=== PATIENT | female | born 1995 | race Caucasian/White ===

== ENCOUNTER 2022-09-05 18:52 | Outpatient (CLI) | payer MEDICAID, SELFPAY ==
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
--- OUTSIDE RECORDS SUMMARY | 2022-09-05 18:54 | XMS_ITS | Encounter Summary ---
:1995 Author Organization [facility] Address [address] [place] [address] Care Team Providers Name Role Phone No Ref-Primary, Physician Primary Care Provider [phone] Viri Gallardo APRN SUPERVISOR PRODUCTION MANAGING Unavailable [phone] Viri Gallardo APRN SUPERVISOR [employer]ODUCTION MANAGING Unavailable [phone] Reason for Visit Reason Onset Date Comments No Show No Show 02/13/2021 Encounter Details Date Type Department Care Team Description 02/13/[address] [facility] Aleena Moreno NO SHOW (Primary Dx) Clinic Jesu Lloyd MD [address] [place] [address] [address] [place], [place] [id number] [phone] (Wo rk) Social History Tobacco Use Types [...] Assigned at Date Recorded Not on file documented as of this encounter Progress Notes Sarah Borges, CRISS - 02/13/2021 1:00 PM CDT This patient was a no show for this scheduled appointment. documented in this encounter Plan of Treatment Not on filedocumented as of this encounter Visit Diagnoses Diagnosis NO SHOW - Primary documented in this encounter Additional Health Concerns Assessment Noted Time PHQ-9 Depression Total Score: 15 09/16/2018 1:27 PM CS T documented as of this encounter Care Teams Senior Hadoop Developer Relationship Specialty Start Date End Date No Ref-Primary, Physician PCP - General 04/15/20 Viri Gallardo APRN SUPERVISOR PRODUCTION MANAGING Nurse Practitioner 04/15/20 [address] [facility] [place] [id number] Viri Gallardo APRN SUPERVISOR PRODUCTION MANAGING Assigned PCP 08/18/20 04/24/21 [address] [facility] [place] [id number] documented as of this encounter
--- OUTSIDE RECORDS SUMMARY | 2022-09-05 18:54 | XMS_ITS | Encounter Summary ---
:1995 Author Organization [facility] Address [address] [place] [address] Care Team Providers Name Role Phone No Ref-Primary, Physician Primary Care Provider [phone] Viri Gallardo CONTRACT ENGINEER PACKAGER AND STRAPPER Unavailable [phone] Kenisha Garcia CONTRACT ENGINEER PACKAGER AND STRAPPER Unavailable [phone] Reason for Referral Diagnostic Imaging Ultrasound (Routine) - Pending Review Specialty Diagnoses / Procedures Referred By Contact Refer red To Contact Diagnoses related condition Maria Victoria Robles MD Procedures [facility] [address] [place] [address] Referral ID Status Reason Start Date Expiration Date Visits V isits Requested Authorized [id number] Pending 06/04/2022 06/04/2023 1 1 Review onsultation (Routine: Next available opening) - Pending Review Specialty Diagnoses / Procedures Referred By Contact Refer red To Contact Diagnoses related condition Maria Victoria Robles MD [facility] [address] [place] [address] [address] [place] [address] [place] [address] Referral ID Status Reason Start Date Expiration Date Visits V isits Requested Authorized [id number] Pending 06/04/2022 06/04/2023 1 1 Review Encounter Details Date Type Department Care Team Description 06/04/2022 Transcribe Orders [facility] Travis, Maria Victoria Dacosta, Pre gnancy related Maternal MD condition (Primary Medicine Center [address] Dx) Denise Lockett [address] [facility] [place] [address] [place] [address] [address] (Work) [place] [id number] Social History Tobacco Use Types Packs/Day Years [...] on file documented as of this encounter Plan of Treatment Scheduled Referrals Name Type Priority Associated Diagnoses Order [facility] Referral Routine: Next related Expe cted: Referral - available opening condition 06/04/2022 (Approximate), Expires: 12/01/2022 documented as of this encounter Results MFM US Comprehensive Single (06/05/2022 10:49 AM CDT) Anatomical Region Laterality Modality Ultrasound Specimen (Source) Anatomical Collection Method Collection Time Re ceived Time Location / / Volume Laterality 06/05/2022 10:15 AM CDT Impressions 06/05/2022 2:21 PM CDT IMPRESSION 1) Cruz intrauterine at 2 2w 4d gestational age. 2) None of the anomalies commonly detect ed by ultrasound were evident in the detailed anatomic survey described above. 3) Growth parameters and estimated weight were consistent with an appropriate for gestation age pattern of growth. 4) The amniotic fluid volume appeared no rmal. Narrative 06/05/2022 2:21 PM CDT Comprehensive Pat. Name: JOEL AMOS Study Date: 05/12 10:15am Pat. NO: [id number] Referring ??MD: LUCHO ROBLES Site: [place] Test Driller: Ivonne oneal RDMS : 1995 Age: 27 INDICATION Abnormal cranial anatomy on outside ultr asound. History of post- pre- eclampsia in prior . METHOD Transabdominal ultrasound examination. V iew: Sufficient Cruz . Number of fetuses: 1 DATING ? Date ?Details ?Gest. age ?COSTA LMP ?12/28/2021 ? 22 w + 5 d ? 10/04/2022 Prior assessment ? 5/ ? GA: 8 w + 0 d ?22 w + 4 d ? 10/05/2022 U/S ? 06/05/2022 ? based upon AC, BPD, Femur, HC ? 22 w + 3 d ? 10/06/2022 Assigned dating ?Dating performed on 06/05/2022, based on the prior assessment (on 02/23/2022) ? 22 w + 4 d ? 10/05/2022 GENERAL EVALUATION Cardiac activity present. FHR 144 bpm. movements present. Presentation cephalic. Placenta Anterior, No Previa, > 2 cm fro m internal os. Umbilical cord 3 vessel cord. Amniotic fluid Amount of AF: normal. MVP 5.9 cm. BIOMETRY Main Biometry: BPD ?52.8 ?mm ? 22w 0d ?Hadlock OFD ?71.7 ?mm ? 22w 1d ?Nicolaides HC ?198.7 ?mm ?22w 0d ?Hadlock Cerebellum tr ?23.9 ? mm ?22w 0d ?Nicolaides AC ?186.3 ?mm ?23w 3d ?69% ?Hadlock Femur ?37.9 ? mm ?22w 1d ?Hadlock Humerus ?36.0 ?mm ? 22w 4d ?Shamir Weight Calculation: EFW ? 529 ? g ? 50% ?Hadlock EFW (lb,oz) ? 1 lb 3 ?oz EFW by ?Hadlock ([id number]) Head / Face / Neck Biometry: Graphic Engineer ? 5.9 ? mm CM ?5.7 ? mm Nasal bone ? 7.1 ? mm ANATOMY The following structures appear normal: Head / Neck ? Cranium. Head size. Head shape. Lateral ventricles. Choroid plexus. Midline falx. Cavum septi pellucidi. Cerebellum. Cisterna magna. ? Parenchyma. Thalami. Vermis. ? Neck. Face ? Lips. Profile. Nose. Maxilla. Mandible. Orbits. Lens. Heart / Thorax ?4-chamber view. RVOT view. LVOT view. Situs. Aortic arch view. Bicaval view. Ductal arch view. Superior vena cava. Inferior vena cava. 3-vessel ? view. 4-ebwmya-ivfpfuk view. Cardiac position. Cardiac size. Cardiac rhythm. ? Right lung. Left lung. Diaphragm. Abdomen ? Abdominal wall. Cord insertion. Stomach. Kidneys. Bladder. Liver. Bowel. Genitals. Spine ?Cervical spine. Thoracic spine. Lumbar spine. Sacral spine. Extremities / Skeleton ?Rig ht arm. Right hand. Left arm. Left hand. Right leg. Right foot. Left leg. Left foot. Gender: female. MATERNAL STRUCTURES Cervix ?Visualized ? Appearance: Appears Closed ? Approach - Transabdominal: Cervical length 44.2 mm Right Ovary ?Visualized Left Ovary ?Not visualized RECOMMENDATION We discussed the findings on today's ult rasound with the patient. Further ultrasound studies as clinically indicated. Return to primary provider for continued care. Thank you for the opportunity to partici lucía in the care of this patient. If you have questions regarding today's evaluation or if we can be of further service, please contact the [facility]. anomalies may be present but not detected Procedure Note Juan José Barrera MD - 06/05/2022Formatt ing of this note might be different from the original. Comprehensive Pat. Name:Lori AMOS Date: 10:15am Pat. NO: [id number] :MARIA VICTORIA MYLES [facility]:Ivonne reynoso RDMS :1995Age:27 INDICATION Abnormal cranial anatomy on outside ultr asound. History of post- pre- eclampsia in prior . METHOD Transabdominal ultrasound examination. V iew: Sufficient Cruz . Number of fetuses: 1 DATING Date Details Gest. age COSTA LMP 12/28/2021 22 w + 5 d 10/04/2022 Prior assessment 02/23/2022 GA: 8 w + 0 d 22 w + 4 d 10/05/2022 U/S 06/05/2022 based upon AC, BPD, Femur, HC 22 w + 3 d 10/06/2022 Assigned dating Dating performed on 05/12, based on the prior assessment (on 02/23/2022) 22 w + 4 d 10/05/2022 GENERAL EVALUATION Cardiac activity present. FHR 144 bpm. movements present. Presentation cephalic. Placenta Anterior, No Previa, > 2 cm fro m internal os. Umbilical cord 3 vessel cord. Amniotic fluid Amount of AF: normal. MVP 5.9 cm. BIOMETRY Main Biometry: BPD 52.8 mm 22w 0d Hadlock OFD 71.7 mm 22w 1d Nicolaides HC 198.7 mm 22w 0d Hadlock Cerebellum tr 23.9 mm 22w 0d Nicolaides AC 186.3 mm 23w 3d 69% Hadlock Femur 37.9 mm 22w 1d Hadlock Humerus 36.0 mm 22w 4d Shamir Weight Calculation: EFW 529 g 50% Hadlock EFW (lb,oz) 1 lb 3 oz EFW by Hadlock ([id number]) Head / Face / Neck Biometry: Graphic Engineer 5.9 mm CM 5.7 mm Nasal bone 7.1 mm ANATOMY The following structures appear normal: Head / Neck Cranium. Head size. Head sha pe. Lateral ventricles. Choroid plexus. Midline falx. Cavum septi pellucidi. Cerebellum. Cisterna magna. Parenchyma. Thalami. Vermis. Neck. Face Lips. Profile. Nose. Maxilla. Jaylin ble. Orbits. Lens. Heart / Thorax 4-chamber view. RVOT view . LVOT view. Situs. Aortic arch view. Bicaval view. Ductal arch view. Superior vena cava. Inferior vena cava. 3-vessel view. 6-guwwsw-fyzqxtg view. Cardiac po sition. Cardiac size. Cardiac rhythm. Right lung. Left lung. Diaphragm. Abdomen Abdominal wall. Cord insertion. Stomach. Kidneys. Bladder. Liver. Bowel. Genitals. Spine Cervical spine. Thoracic spine. Michelle mbar spine. Sacral spine. Extremities / Skeleton Right arm. Right hand. Left arm. Left hand. Right leg. Right foot. Left leg. Left foot. Gender: female. MATERNAL STRUCTURES Cervix Visualized Appearance: Appears Closed Approach - Transabdominal: Cervical margi gth 44.2 mm Right Ovary Visualized Left Ovary Not visualized RECOMMENDATION We discussed the findings on today's ult rasound with the patient. Further ultrasound studies as clinically indicated. Return to primary provider for continued care. Thank you for the opportunity to partici lucía in the care of this patient. If you have questions regarding today's evaluation or if we can be of further service, please contact the [facility]. anomalies may be present but not detected IMPRESSION 1) Cruz intrauterine at 2 2w 4d gestational age. 2) None of the anomalies commonly detect ed by ultrasound were evident in the detailed anatomic survey described above. 3) Growth parameters and estimated weight were consistent with an appropriate for gestation age pattern of growth. 4) The amniotic fluid volume appeared no rmal. Maria Victoria Robles MD [facility] US ORDERABLES documented in this encounter Visit Diagnoses Diagnosis related condition - Primary Unspecified complication of , u nspecified as to episode of care related condition Unspecified complication of , u nspecified as to episode of care documented in this encounter Additional Health Concerns Assessment Noted Time PHQ-9 Depression Total Score: 15 09/16/2018 1:27 PM CS T documented as of this encounter Care Teams Regeneration Operator Relationship Specialty Start Date End Date No Ref-Primary, Physician PCP - General 04/15/20 Viri Gallardo APRN P[employer]AGER AND STRAPPER Nurse Practitioner 04/15/20 [address] [place], [place] [address] Kenisha Garcia APRN PACKAGER AND STRAPPER Assigned PCP 04/25/21 [address] [facility] [place] [id number] documented as of this encounter
--- OUTSIDE RECORDS SUMMARY | 2022-09-05 18:54 | XMS_ITS | Encounter Summary ---
:1995 Author Organization [place] Address [address] [place] [address] Care Team Providers Name Role Phone No Ref-Primary, Physician Primary Care Provider [phone] Viri Gallardo DYNAMICS AX CONSULTANT LINE CONSTRUCTION SUPERINTENDENT Unavailable [phone] Kenisha Garcia DYNAMICS AX CONSULTANT LINE CONSTRUCTION SUPERINTENDENT Unavailable [phone] Reason for Visit Reason Comments Anxiety Encounter Details Date Type Department Care Team Description 04/27/[address] [facility] Zeeshan Mcintosh; [facility] Emergency MD Lui Methamphetamine use (H) Dept [facility] [address] [place], [place] [address] [facility] [id number] [place] [address] (Wo rk) Social History Tobacco Use Types [...] been in contact with No / Unsure 04/27/2021 3:44 PM CDT someone who was confirmed or suspected to have Coronavirus / COVID-19? documented as of this encounter Last Filed Vital Signs Vital Sign Reading Time Taken Comments Blood Pressure 132/88 04/27/2021 7:58 PM CDT Pulse 65 04/27/2021 7:58 PM CDT Temperature 36.6 ??C (97.8 ??F) 04/27/2021 4:16 PM CDT Respiratory Rate 20 04/27/2021 4:11 PM CDT Oxygen Saturation 99% 04/27/2021 7:58 PM CDT Inhaled Oxygen Concentration - - Weight - - Height - - Body Mass Index - - documented in this encounter Discharge Instructions AttachmentsThe following attachments cannot be sent through Care Everywhere. Dehydration (Adult) (Nigerien)documented in this encounter Medications at Time of Discharge Medication Sig Dispensed Refills Start Date End Date FLUoxetine (PROZAC) 20 Take 20 mg by mouth 0 MG capsule daily hydrOXYzine (ATARAX) 25 Take 25 mg by mouth 0 MG tablet daily 1-2 tablets every 8 hours lamoTRIgine (LAMICTAL) Take 25 mg by mouth 3 0 25 MG tablet times daily levonorgestrel-ethinyl Take 1 tablet by mouth 84 tablet 3 0 04/10/2021 estradiol (AVIANE) daily Take continuously 0.1-20 MG-MCG to skip a period tabletIndications: control counseling SUMAtriptan (IMITREX) Take 1 tablet (100 mg) 12 tablet 3 100 MG by mouth at onset of tabletIndications: headache for migraine Migraine without aura May repeat in 2 hours if and without status needed: max 2/day; migrainosus, not average number of intractable headaches monthly 4 varenicline (CHANTIX Take 0.5 mg tab daily 53 tablet 0 /10/2020 MARNIE) 0.5 MG X 11 & 1 MG for 3 days, THEN 0.5 mg X 42 tabletIndications: tab twice daily for 4 Tobacco abuse days, THEN 1 mg twice daily. varenicline (CHANTIX) 1 Take 1 tablet (1 mg) by 60 tablet 3 04/10/2021 MG tabletIndications: mouth 2 times daily Tobacco abuse documented as of this encounter ED Notes Chantel Ospina RN - 04/27/2021 4:30 PM CDT Grandmother at bedside Chantel Ospina RN - 04/27/2021 4:13 PM CDT Provided two cups of water and turkey sandwich. Pt consumed with no emesis. Chantel Ospina RN - 04/27/2021 4:05 PM CDT Pt rports having argument with girlfriend getting upset and walking away to defuse the situation. pt reports walking a long distance to her car and getting over heated, drinking water from water hoses, and vomiting. PT reports that she left her phone and keys there with the girlfreind. PT currently able to drink water and eat food without emesis. Reports hx of meth abuse, usually smokes or snorts it. Chantel Ospina RN - 04/27/2021 4:03 PM CDT Pts vape and belongings secured in locker 47. Chantel Ospina RN - 04/27/2021 3:44 PM CDT Pt to ED via EMS with c/o panic attack/anxiety. Ems reports that a bystander found her laying under a tree vomiting. Pt told Ems that she had argument with girlfriend and went for a long walk to defuse the situation, got over heated, drank water, and vomited. Reportedly used meth yesterday and has ahx of substance abuse. Denies SI/HI for EMS. Padmini Kilpatrick RN - 04/27/2021 3:42 PM CDT Bed: ED07 Expected date: Expected time: Means of arrival: Comments: Angely 594 Zeeshan Mcintosh MD - 04/27/2021 3:42 PM CDT History Chief Complaint: Anxiety The history is provided by the patient and the EMS personnel. Joel Bautista is a 25 year old female with history of anxiety, depression, bipolar I disorder, and borderline personality disorder who presents via EMS with anxiety. Per EMS, patient was found laying under a tree vomiting by a bystander. She states she got into an argument with a girl and left the house without her phone. She then went for a long walk and got over heated, dehydrated, and started having anxiety. She reports walking from [place] to [place] for 3 hours. She has a history of substance abuse and reports using meth yesterday. En route, EMS gave her ice pack and this helped her symptoms. Here in the ED, patient reports cutting herself about a week ago although she denies suicidal or homicidal ideation. She states she does not feel safe anywhere. She also notes leg cramping. Of note, patient started Prozac on 03/19/2021 and control about 2 weeks ago. She states she is scheduled for inpatient substance abuse therapy next week. Review of Systems Gastrointestinal: Positive for vomiting. Psychiatric/Behavioral: Positive for self-injury. Negative for suicidal ideas. The patient is nervous/anxious. All other systems reviewed and are negative. Allergies: The patient has no known drug allergies. Medications: Prozac Atarax Lamictal Aviane Imitrex Varenicline Past Medical History: Anxiety Bipolar 1 disorder Borderline personality disorder Depression Substance abuse PTSD Family History: Mother: hypertension Social History: Patient presents to the ED via EMS and is accompanied by her grandma. Patient has 2 twin kids who are 6 years old. Physical Exam Patient Vitals for the past 24 hrs: BP Temp Temp src Pulse Resp SpO2 04/27/21 1958 132/88 -- -- 65 -- 99 % 04/27/21 1743 -- -- -- -- -- 100 % 04/27/21 1742 (!) 141/69 -- -- 78 -- -- 04/27/21 1617 -- -- -- -- -- 100 % 04/27/21 1616 -- 97.8 ??F (36.6 ??C) Temporal -- -- 98 % 04/27/21 1611 -- -- -- -- 20 100 % 04/27/21 1559 -- -- -- -- -- 100 % 04/27/21 1558 -- -- -- 64 -- 96 % 04/27/21 1557 -- -- -- -- -- 100 % 04/27/21 1556 -- -- -- -- -- 100 % 04/27/21 1555 -- -- -- -- -- 99 % 04/27/21 1554 -- -- -- -- -- 100 % 04/27/21 1553 -- -- -- -- -- 99 % 04/27/21 1552 -- -- -- -- -- 100 % 04/27/21 1550 104/76 -- -- -- -- -- Physical Exam Nursing note and vitals reviewed. Constitutional: Cooperative. HENT: Mouth/Throat: Moist mucous membranes. Eyes: EOMI, nonicteric sclera Cardiovascular: Normal rate, regular rhythm, no murmurs, rubs, or gallops Pulmonary/Chest: Effort normal and breath sounds normal. No respiratory distress. No wheezes. No rales. Abdominal: Soft. Nontender, nondistended, no guarding or rigidity. Musculoskeletal: Normal range of motion. Neurological: Alert. Moves all extremities spontaneously. Skin: Skin is warm and dry. No rash noted. Psychiatric: Normal mood and affect. Emergency Department Course Laboratory: CBC: WBC: 21.9 (H) , HGB: 16.0 (H) , PLT: 350 BMP: Glucose 111 (H) , Calcium: 10.8 (H) , Creatinine: 1.11 (H) o/w WNL CK total: 259 (H) UA: Ketones: Trace (A), Blood: Small (A), Leukocyte Esterase: Trace (A), Bacteria: Few (A), SquamousEpithelial: 3 (H), Mucous: Present, o/w Negative Wet prep: WBCs/high power field: 2+ (A) Emergency Department Course: Reviewed: I reviewed nursing notes, vitals, past medical history and care everywhere Assessments: 1609 I obtained history and examined the patient as noted above. 185 I rechecked the patient. She thinks she has an UTI or yeast infection. Interventions: 1629 NS 1L IV 1741 NS 1L IV Disposition: The patient was discharged to home. Impression & Plan Medical Decision Making: Pt presents with nausea/vomiting after prolonged walk outside in the heat. Suspect this related to heat exposure. No fever or AMS to suggest heat stroke or heat exhaustion. Pt rehydrated here with good improvement in her symptoms. Labs do not show signs of rhabdo. Perhaps mild ROLANDO that will resolve with fluids given. Leukocytosis noted without nidus of infection. May be stress demargination related to vomiting/heat injury. Ultimately, pt symptomatically improved and she is safe/stable for dischargehome. She is in stable condition at the time of discharge, indications for return to the ED were discussed as well as follow up. All questions were answered and she is in agreement with the plan. Diagnosis: ICD-10-CM 1. Dehydration E86.0 2. Methamphetamine use (H) F15.10 Scribe Disclosure: I, Amanda Perdomo, am serving as a scribe at 3:55 PM on 04/27/2021 to document services personally performed by Zeeshan Mcintosh MD based on my observations and the provider's statements to me. Zeeshan Mcintosh MD 04/28/21 0608 documented in this encounter Plan of Treatment Not on filedocumented as of this encounter Procedures Procedure Name Priority Date/Time Associated Comments Diagnosis ROUTINE UA WITH STAT 04/27/2021 6:55 PM Result s for this MICROSCOPIC REFLEX TO CDT proced ure are in CULTURE the results section. WET PREPARATION STAT 04/27/2021 6:55 PM Result s for this CDT procedure are i n the results section. CBC WITH PLATELETS STAT 04/27/2021 4:27 PM Res ults for this AND DIFFERENTIAL CDT procedure a re in the results section. CBC WITH PLATELETS & STAT 04/27/2021 4:27 PM R esults for this DIFFERENTIAL CDT procedure are i n the results section. CK TOTAL STAT 04/27/2021 4:27 PM Results f or this CDT procedure are i n the results section. BASIC METABOLIC PANEL STAT 04/27/2021 4:27 PM Results for this CDT procedure are i n the results section. documented in this encounter Results (ABNORMAL) Wet prep (04/27/2021 6:55 PM CDT) Analysis Performed At Patho logist Time Signature Trichomonas Absent Absent JIMMY 04/27/2021 [facility] 7:20 PM CDT Yeast Absent Absent JIMMY 04/27/2021 [facility] 7:20 PM CDT Clue Cells Absent Absent JIMMY 04/27/2021 [facility] 7:20 PM CDT WBCs/high power 2+ (A) None JIMMY 04/27/2021 [facility] field 7:20 PM CDT Specimen Anatomical Collection Method Collection Time Receive d Time (Source) Location / / Volume Laterality Swab VAGINAL STRUCTURE Non-blood 04/27/2021 6:55 PM 04/10 7:04 / Unknown Collection / CDT PM CDT Unknown Zeeshan Mcintosh MD LAB - MICRO GENERAL ORDERABL ES Performing Organization Address City/State/ZIP Code Phon [place] [address] [facility] [address] Lab (1st floor, no room number) (ABNORMAL) UA with Microscopic reflex to Culture (04/27/2021 6:55 PM CDT) Patholo gist Method Time Signature Color Urine Light Colorless, 04/27/2021 [facility] Yellow Straw, 8:29 PM CDT Light Yellow, Yellow Appearance Urine Clear Clear 04/27/2021 [facility] Y 8:29 PM CDT Glucose Urine Negative Negative 04/27/2021 [facility] mg/dL 8:29 PM CDT Bilirubin Urine Negative Negative 04/27/2021 [facility] 8:29 PM CDT Ketones Urine Trace (A) Negative 04/27/2021 [facility] mg/dL 8:29 PM CDT Specific [place] 1.015 1.003 - 04/27/2021 [facility] Urine 1.035 8:29 PM CDT Blood Urine Small (A) Negative 04/27/2021 [facility] 8:29 PM CDT pH Urine 6.5 5.0 - 7.0 04/27/2021 [facility] 8:29 PM CDT Protein Albumin Negative Negative 04/27/2021 [facility] Urine mg/dL 8:29 PM CDT Urobilinogen Normal Normal, 2.0 04/27/2021 [facility] Urine mg/dL 8:29 PM CDT Nitrite Urine Negative Negative 04/27/2021 [facility] 8:29 PM CDT Leukocyte Trace (A) Negative 04/27/2021 [facility] Esterase Urine 8:29 PM CDT Bacteria Urine Few (A) None Seen 04/27/2021 [facility] /HPF 8:29 PM CDT Mucus Urine Present (A) None Seen 04/27/2021 [facility] /LPF 8:29 PM CDT RBC Urine 2 <=2 /HPF 04/27/2021 [facility] 8:29 PM CDT WBC Urine 5 <=5 /HPF 04/27/2021 [facility] 8:29 PM CDT Squamous 3 (H) <=1 /HPF 04/27/2021 [facility] Epithelials 8:29 PM CDT Urine Specimen Anatomical Collection Method Collection Time Receive d Time (Source) Location / / Volume Laterality Urine MID-STREAM URINE Non-blood 04/27/2021 6:55 PM 04/27 7:04 SPECIMEN / Unknown Collection / CDT PM CDT Unknown Narrative [facility] - 04/27/2021 8:29 PM CDT Urine Culture not indicated Zeeshan Mcintosh MD LAB - URINE ORDERABLES Performing Organization Address City/State/ZIP Code [place] [phone] [facility] [address] Lab (1st floor, no room number) (ABNORMAL) CBC with platelets and differential (04/27/2021 4:27 PM CDT) [facility] Method Time Signature WBC Count 21.9 (H) 4.0 - 04/27/2021 [facility] 11.0 4:34 PM CDT 10e3/uL RBC Count 4.85 3.80 - 04/27/2021 [facility] 5.20 4:34 PM CDT 10e6/uL Hemoglobin 16.0 (H) 11.7 - 04/27/2021 [facility] 15.7 g/dL 4:34 PM CDT Hematocrit 47.8 (H) 35.0 - 04/27/2021 [facility] 47.0 % 4:34 PM CDT MCV 99 78 - 100 04/27/2021 [facility] fL 4:34 PM CDT MCH 33.0 26.5 - 04/27/2021 [facility] 33.0 pg 4:34 PM CDT MCHC 33.5 31.5 - 04/27/2021 [facility] 36.5 g/dL 4:34 PM CDT RDW 12.2 10.0 - 04/27/2021 [facility] 15.0 % 4:34 PM CDT Platelet Count 350 150 - 450 04/27/2021 [facility] 10e3/uL 4:34 PM CDT % Neutrophils 80 % 04/27/2021 [facility] 4:34 PM CDT % Lymphocytes 11 % 04/27/2021 [facility] 4:34 PM CDT % Monocytes 7 % 04/27/2021 [facility] 4:34 PM CDT % Eosinophils 0 % 04/27/2021 [facility] 4:34 PM CDT % Basophils 1 % 04/27/2021 [facility] 4:34 PM CDT % Immature 1 % 04/27/2021 [facility] Granulocytes 4:34 PM CDT NRBCs per 100 0 <1 /100 04/27/2021 [facility] WBC 4:34 PM CDT Absolute 17.6 (H) 1.6 - 8.3 04/27/2021 [facility] Neutrophils 10e3/uL 4:34 PM CDT Absolute 2.5 0.8 - 5.3 04/27/2021 [facility] Lymphocytes 10e3/uL 4:34 PM CDT Absolute 1.5 (H) 0.0 - 1.3 04/27/2021 [facility] Monocytes 10e3/uL 4:34 PM CDT Absolute 0.1 0.0 - 0.7 04/27/2021 [facility] Eosinophils 10e3/uL 4:34 PM CDT Absolute 0.1 0.0 - 0.2 04/27/2021 [facility] Basophils 10e3/uL 4:34 PM CDT Absolute 0.1 (H) <=0.0 04/27/2021 [facility] Immature 10e3/uL 4:34 PM CDT Granulocytes Absolute NRBCs 0.0 10e3/uL 04/27/2021 [facility] 4:34 PM CDT Specimen Anatomical Collection Method Collection Time Receive d Time (Source) Location / / Volume Laterality Blood STRUCTURE OF LEFT VAD(CVC, PICC) / 04/27/2021 4:27 PM 04/27/2021 4:29 UPPER LIMB / Unknown CDT PM CDT Unknown Zeeshan Mcintosh MD LAB - BLOOD ORDERABLES Performing Organization Address City/[facility]/ZIP Code Ph[place] [address] [facility] [address] Lab (1st floor, no room number) (ABNORMAL) CK total (04/27/2021 4:27 PM CDT) P athologist Signature CK 259 (H) 30 - 225 04/27/2021 [facility] U/L 4:57 PM CDT Specimen Anatomical Collection Method Collection Time Receive d Time (Source) Location / / Volume Laterality Blood STRUCTURE OF LEFT VAD(CVC, PICC) / 04/27/2021 4:27 PM 04/27/2021 4:29 UPPER LIMB / Unknown CDT PM CDT Unknown Zeeshan Mcintosh MD LAB - BLOOD ORDERABLES Performing Organization Address City/[facility]/ZIP Code [place] [address] [facility] [address] Lab (1st floor, no room number) (ABNORMAL) Basic metabolic panel (BMP) (04/27/2021 4:27 PM CDT) Patholo gist Method Time Signature Sodium 140 133 - 144 04/27/2021 [facility] mmol/L 4:57 PM CDT Potassium 4.6 3.4 - 5.3 04/27/2021 [facility] mmol/L 4:57 PM CDT Chloride 108 94 - 109 04/27/2021 [facility] mmol/L 4:57 PM CDT Carbon Dioxide 26 20 - 32 04/27/2021 [facility] (CO2) mmol/L 4:57 PM CDT Anion Gap 6 3 - 14 04/27/2021 [facility] mmol/L 4:57 PM CDT Urea Nitrogen 13 7 - 30 04/27/2021 [facility] mg/dL 4:57 PM CDT Creatinine 1.11 (H) 0.52 - 04/27/2021 [facility] 1.04 mg/dL 4:57 PM CDT Calcium 10.8 (H) 8.5 - 10.1 04/27/2021 [facility] mg/dL 4:57 PM CDT Glucose 111 (H) 70 - 99 04/27/2021 [facility] mg/dL 4:57 PM CDT GFR Estimate 70 >60 04/27/2021 [facility] mL/min/1.7 4:57 PM CDT 3m2 Comment: As of April 20, 2021, eGFR is ca lculated by the CKD-EPI creatinine equation, without race adjustment. eGFR can be inf luenced by muscle mass, exercise, and diet. The reported eGFR is an estimation only and is only applicable if the renal function is stable. Specimen Anatomical Collection Method Collection Time Receive d Time (Source) Location / / Volume Laterality Blood STRUCTURE OF LEFT VAD(CVC, PICC) / 04/27/2021 4:27 PM 04/27/2021 4:29 UPPER LIMB / Unknown CDT PM CDT Unknown Zeeshan Mcintosh MD LAB - BLOOD ORDERABLES Performing Organization Address City/State/ZIP Code [place] [address] [facility] [address] Lab (1st floor, no room number) documented in this encounter Visit Diagnoses Diagnosis Dehydration Methamphetamine use (H) Nondependent amphetamine or related acti ng sympathomimetic abuse, unspecified documented in this encounter Administered Medications Inactive Administered Medications - up to 3 most recent administrations Medication Order MAR Action Action Date Dose Rate Site 0.9% sodium chloride BOLUS New Bag 04/27/2021 4:29 PM CDT 1,000 mLs 2000 mL/hr Intravenous, 1,000 mL, ONCE, at 2,000 mL/hr, Administer over 30 Minutes, On 04/27/21 at 1620, For 1 dose 0.9% sodium chloride BOLUS New Bag 04/27/2021 5:41 PM CDT 1,000 mLs 2000 mL/hr Intravenous, 1,000 mL, ONCE, at 2,000 mL/hr, Administer over 30 Minutes, On 04/27/21 at 1650, For 1 dose documented in this encounter Active and Recently Administered Medications Times are shown in CDT. Scheduled Medication Order 04/25/2021 04/26/2021 04/27/2021 0.9% sodium chloride BOLUS (COMPLETED) 1629 (New Bag - Provider: Chantel Ospina, RN)1743 (Stopped - Provider: Chantel Ospina, RN) Intravenous, 1,000 mL, ONCE, at 2,000 mL /hr, Administer over 30 Minutes, On 04/27/21 at 1620, For 1 dose 0.9% sodium chloride BOLUS (COMPLETED) 1741 (New Bag - Provider: Chantel Ospina RN)1948 (Stopped - Provider: Chantel Ospina RN) Intravenous, 1,000 mL, ONCE, at 2,000 mL /hr, Administer over 30 Minutes, On 04/27/21 at 1650, For 1 dose documented in this encounter Additional Health Concerns Assessment Noted Time PHQ-9 Depression Total Score: 15 09/16/2018 1:27 PM CS T documented as of this encounter Care Teams Board Machine Set Up Operator Relationship Specialty Start Date End Date No Ref-Primary, Physician PCP - General 04/15/20 Viri Gallardo APRN LINE CONSTRUCTION SUPERINTENDENT Nurse Practitioner 04/15/20 [address] [facility] [place] [phone] Kenisha Garcia APRN LINE CONSTRUCTION SUPERINTENDENT Assigned PCP 04/25/21 [address] [facility] [place] [id number] documented as of this encounter
--- OUTSIDE RECORDS SUMMARY | 2022-09-05 18:54 | XMS_ITS | Encounter Summary ---
:1995 Author Organization [place] Address [address] [place] [address] Care Team Providers Name Role Phone No Ref-Primary, Physician Primary Care Provider [phone] Viri Gallardo APRN CARD FILER Unavailable [phone] Kenisha Garcia SYSTEM ADMIN CARD FILER Unavailable [phone] Encounter Details Date Type Department Care Team Description 06/05/2022 Travel Social History Tobacco Use Types Packs/Day Years [...] Exposure Response Date Recorded In the last 10 days, have you been in contact with No / Unsu re 06/05/2022 9:51 AM CDT someone who was confirmed or suspected to have Coronavirus/COVID-19? documented as of this encounter Plan of Treatment Not on filedocumented as of this encounter Visit Diagnoses Not on filedocumented in this encounter Additional Health Concerns Assessment Noted Time PHQ-9 Depression Total Score: 15 09/16/2018 1:27 PM CS T documented as of this encounter Care Teams Oil Well Service Unit Operator Relationship Specialty Start Date End Date No Ref-Primary, Physician PCP - General 04/15/20 Viri Gallardo APRN CARD FILER Nurse Practitioner 04/15/20 [address] [facility] [place] [phone] Kenisha Garcia APRN CARD FILER Assigned PCP 04/25/21 [address] [facility] [place] [phone] documented as of this encounter
--- OUTSIDE RECORDS SUMMARY | 2022-09-05 18:54 | XMS_ITS | Encounter Summary ---
:1995 Author Organization [facility] Address [address] [place] [address] Care Team Providers Name Role Phone No Ref-Primary, Physician Primary Care Provider [phone] Viri Gallardo APRN [employer]AL C[employer]W T[employer]ER Unavailable [phone] Viri Gallardo APRN [employer]AL C[employer] SAW T[employer]ER Unavailable [phone] Reason for Visit Reason Comments Nausea Vomiting Encounter Details Date Type Department Care Team Description 01/09/[address] [facility] Alexandria Pope M, Nause a and vomiting, intractability of vomiting not specified, unspecified vomiting type (Primary Dx); [facility] THER[facility]IST Constipation, unspecified constipation t ype; [address] [facility] [employer] Gastroe sophageal reflux disease without esophagitis [facility] [address] [place] [address] [place] [phone] (Work) [phone] Social History Tobacco Use Types Packs/Day Years [...] been in contact with No / Unsure 01/09/2021 2:26 PM CDT someone who was confirmed or suspected to have Coronavirus / COVID-19? documented as of this encounter Last Filed Vital Signs Vital Sign Reading Time Taken Comments Blood Pressure 104/66 01/09/2021 2:42 PM CDT Pulse 88 01/09/2021 2:42 PM CDT Temperature 37.3 ??C (99.1 ??F) 01/09/2021 2:42 PM CDT Respiratory Rate - - Oxygen Saturation 97% 01/09/2021 2:42 PM CDT Inhaled Oxygen Concentration - - Weight 52.8 kg (116 lb 6.4 oz) 01/09/2021 2:42 PM CDT Height 160 cm (5' 3) 01/09/2021 2:42 PM CDT Body Mass Index 20.62 01/09/2021 2:42 PM CDT documented in this encounter Patient Instructions Patient InstructionsAlexandria Pope NP - 01/09/2021 2:50 PM CDT Images from the original note were not included. I will keep you posted on the urine results Patient Education GERD (Adult) The esophagus is a tube that carries food from the mouth to the stomach. A valve (the LES, lower esophageal sphincter) at the lower end of the esophagus prevents stomach acid from flowing upward. When this valve doesn't work properly, stomach contents may repeatedly flow back up (reflux) into the esophagus. This is called??gastroesophageal reflux disease (GERD).??GERD can irritate the esophagus. It can cause problems with pain, swallowing or breathing. In severe cases, GERD can cause recurrent pneumonia (from aspiration or breathing in particles) or other serious problems. Symptoms of reflux include burning, pressure or sharp pain in the upper abdomen or mid to lower chest. The pain can spread to the neck, back, or shoulder. There may be belching, an acid taste in the back of the throat, chronic cough, or sore throat, or hoarseness. GERD symptoms often occur during the day after a big meal. They can also occur at night when lying down.?? Home care Lifestyle changes can help reduce symptoms. If needed, your healthcare provider may prescribe medicines.??Symptoms often improve with treatment, but if treatment is stopped, the symptoms often return after a few months. So most persons with GERD will need to continue treatment or get treatment on and off. Lifestyle changes ?? Limit or avoid fatty, fried, and spicy foods, as well as coffee, chocolate, mint, and foods with high acid content such as tomatoes and citrus fruit and juices (orange, grapefruit, lemon). ?? Don???t eat large meals, especially at night. Frequent, smaller meals are best. Don't lie down right after eating. And don???t eat anything 3 hours before going to bed. ?? Don't drink alcohol or smoke. As much as possible, stay away from second hand smoke. ?? If you are overweight, losing weight will reduce symptoms.? Don't wear tight clothing around your stomach area. ?? If your symptoms occur during sleep, use a foam wedge to elevate your upper body (not just your head.) Or, place 4 blocks under the head of your bed. Or use 2 bed risers under your bedframe. Medicines If needed, medicines can help relieve the symptoms of GERD and prevent damage to the esophagus. Discuss a medicine plan with your healthcare provider. This may include one or more of the following medicines: ?? Antacids to help neutralize the normal acids in your stomach. ?? Acid blockers (Histamine or H2 blockers) to decrease acid production. ?? Acid inhibitors (proton pump inhibitors PPIs) to decrease acid production in a different way thanthe blockers. They may work better, but can take a little longer to take effect. Take an antacid 30 to 60 minutes after eating and at bedtime, but not at the same time as an acid babar. Try not to take medicines such as ibuprofen and aspirin. If you are taking aspirin for your heart orother medical reasons, talk to your healthcare provider about stopping it. Follow-up care Follow up with your healthcare provider or as advised by our staff. When to seek medical advice Call your healthcare provider if any of the following occur: ?? Stomach pain gets worse or moves to the lower right abdomen (appendix area) ?? Chest pain appears or gets worse, or spreads to the back, neck, shoulder, or arm ?? An lksy-arq-shpshsd trial of medicine doesn't relieve your symptoms ?? Weight loss that can't be explained ?? Trouble or pain swallowing ?? Frequent vomiting (can???t keep down liquids) ?? Blood in the stool or vomit (red or black in color) ?? Feeling weak or dizzy ?? Fever of 100.4??F (38??C) or higher, or as directed by your healthcare provider [employer] last reviewed this educational content on 12/09/2017 ?? [id number] [employer]. All rights reserved. This information is not intended as a substitute for professional medical care. Always follow your healthcare professional's instructions. documented in this encounter Progress Notes Alexandria Pope NP - 01/09/2021 2:50 PM CDT Images from the original note were not included. Assessment & Plan Nausea and vomiting, intractability of vomiting not specified, unspecified vomiting type Gastroesophageal reflux disease without esophagitis Based on hx and exam seems most likely GERD. Worst with eating, has constant burn in throat. No red flag symptoms. Discussed lifestyle changes/food triggers to avoid. Recommend 6-8 weeks of daily PPI, ok to use prn antacids. Denies NSAID use or alcohol intake. Admits to marijuana use which she has not done the past few daysto see if this helps but no improvement of the above symptoms. - HCG Qual, Urine ([id number]) Constipation, unspecified constipation type Chronic problem, currently not problematic. Patient Instructions I will keep you posted on the urine results Patient Education GERD (Adult) The esophagus is a tube that carries food from the mouth to the stomach. A valve (the LES, lower esophageal sphincter) at the lower end of the esophagus prevents stomach acid from flowing upward. When this valve doesn't work properly, stomach contents may repeatedly flow back up (reflux) into the esophagus. This is called??gastroesophageal reflux disease (GERD).??GERD can irritate the esophagus. It can cause problems with pain, swallowing or breathing. In severe cases, GERD can cause recurrent pneumonia (from aspiration or breathing in particles) or other serious problems. Symptoms of reflux include burning, pressure or sharp pain in the upper abdomen or mid to lower chest. The pain can spread to the neck, back, or shoulder. There may be belching, an acid taste in the back of the throat, chronic cough, or sore throat, or hoarseness. GERD symptoms often occur during the day after a big meal. They can also occur at night when lying down.?? Home care Lifestyle changes can help reduce symptoms. If needed, your healthcare provider may prescribe medicines.??Symptoms often improve with treatment, but if treatment is stopped, the symptoms often return after a few months. So most persons with GERD will need to continue treatment or get treatment on and off. Lifestyle changes ?? Limit or avoid fatty, fried, and spicy foods, as well as coffee, chocolate, mint, and foods with high acid content such as tomatoes and citrus fruit and juices (orange, grapefruit, lemon). ?? Don???t eat large meals, especially at night. Frequent, smaller meals are best. Don't lie down right after eating. And don???t eat anything 3 hours before going to bed. ?? Don't drink alcohol or smoke. As much as possible, stay away from second hand smoke. ?? If you are overweight, losing weight will reduce symptoms.? Don't wear tight clothing around your stomach area. ?? If your symptoms occur during sleep, use a foam wedge to elevate your upper body (not just your head.) Or, place 4 blocks under the head of your bed. Or use 2 bed risers under your bedframe. Medicines If needed, medicines can help relieve the symptoms of GERD and prevent damage to the esophagus. Discuss a medicine plan with your healthcare provider. This may include one or more of the following medicines: ?? Antacids to help neutralize the normal acids in your stomach. ?? Acid blockers (Histamine or H2 blockers) to decrease acid production. ?? Acid inhibitors (proton pump inhibitors PPIs) to decrease acid production in a different way thanthe blockers. They may work better, but can take a little longer to take effect. Take an antacid 30 to 60 minutes after eating and at bedtime, but not at the same time as an acid babar. Try not to take medicines such as ibuprofen and aspirin. If you are taking aspirin for your heart orother medical reasons, talk to your healthcare provider about stopping it. Follow-up care Follow up with your healthcare provider or as advised by our staff. When to seek medical advice Call your healthcare provider if any of the following occur: ?? Stomach pain gets worse or moves to the lower right abdomen (appendix area) ?? Chest pain appears or gets worse, or spreads to the back, neck, shoulder, or arm ?? An dgal-gwh-qnfkypy trial of medicine doesn't relieve your symptoms ?? Weight loss that can't be explained ?? Trouble or pain swallowing ?? Frequent vomiting (can???t keep down liquids) ?? Blood in the stool or vomit (red or black in color) ?? Feeling weak or dizzy ?? Fever of 100.4??F (38??C) or higher, or as directed by your healthcare provider [email or web address] last reviewed this educational content on 12/09/2017 ?? [id number] [employer]. All rights reserved. This information is not intended as a substitute for professional medical care. Always follow your healthcare professional's instructions. Return in about 2 months (around 03/11/2021), or if symptoms worsen or fail to improve. Alexandria Pope NP [facility] Maldonado is a 25 year old who presents for the following health issues HPI Concern - Nausea/Vomiting Onset: x 4 days Description: Pt reports first occurred after eating food, had acid reflux afterwards. Pt stated she had recently eaten ranch and bermudian dressing. Intensity: severe when it occurs Progression of Symptoms: Intermittent when eating Accompanying Signs & Symptoms: Hot flashes, Cramping, Burping, Acid reflux/heartburn sensation, Constipation, shredded small bowel movements Previous history of similar problem: Hx of difficulty eating dairy and gluten. Hx of constipation, feels similar Precipitating factors: Worsened by: Eating Alleviating factors: Improved by: Warm reynaga (e.g. showers) Therapies tried and outcome: Took Milk of Magnesia with some relief of constipation. Took GasX with minimal relief. Of Note: Trying to get . Burning in her throat. Certain food causes her to vomit. No hematemesis. Vomits after eating as well. Denies constipation, hx of this. Intermittent nausea. No fever, no chills. LMP 3/19. Burping a lot. Denies trouble swallowing. Denies abd pain. Review of Systems Otherwise ROS is negative except as stated above. Objective BP 104/66 (BP Location: Right arm, Patient Position: Sitting, Cuff Size: Adult Regular) Pulse 88 Temp 99.1 ??F (37.3 ??C) (Tympanic) Ht 1.6 m (5' 3) Wt 52.8 kg (116 lb 6.4 oz) SpO2 97% BMI20.62 kg/m?? Body mass index is 20.62 kg/m??. Physical Exam GENERAL: healthy, alert and no distress ABDOMEN: soft, nontender, no hepatosplenomegaly, no masses and bowel sounds normal documented in this encounter Plan of Treatment Not on filedocumented as of this encounter Procedures Procedure Name Priority Date/Time Associated Diagnosis Comme nts HCG QUALITATIVE Routine 01/09/2021 3:12 Nausea and vomiting, R esults for this URINE PM CDT intractability of procedure are in vomiting not the results specified, unspecified secti on. vomiting type documented in this encounter Results HCG Qual, Urine ([id number]) (01/09/2021 3:12 PM CDT) athologist Signature HCG Qual Urine Negative NEG^Negati 01/09/2021 [facility] 3:26 PM CDT [facility] Comment: This test is for screening purposes. ??R esults should be interpreted along with the clinical picture. ??Confirmation te sting is available if warranted by ordering [id number], HCG Quantitative Pregna ncy. Specimen Anatomical Collection Method Collection Time Receive d Time (Source) Location / / Volume Laterality Urine 01/09/2021 3:12 PM 3:13 CDT PM CDT Alexandria Pope NP LAB - URINE ORDERABLES Performing Organization Address City/State/ZIP Code Phon e Number [facility] [address] [place] [address] documented in this encounter Visit Diagnoses Diagnosis Nausea and vomiting, intractability of v omiting not specified, unspecified vomiting type - Primary Constipation, unspecified constipation t ype Gastroesophageal reflux disease without esophagitis Esophageal reflux documented in this encounter Additional Health Concerns Assessment Noted Time PHQ-9 Depression Total Score: 15 09/16/2018 1:27 PM CS T documented as of this encounter Care Teams Plant Associate Relationship Specialty Start Date End Date No Ref-Primary, Physician PCP - General 04/15/20 Viri Gallardo APRN [employer]AL CUT OFF [employer]W T[employer]ER Nurse Practitioner 04/15/20 [address] [facility] [place] [phone] Viri Gallardo APRN METAL CUT OFF [employer]W T[employer]ER Assigned PCP 08/18/20 04/24/21 [address] [facility] [place] [phone] documented as of this encounter
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
--- OUTSIDE RECORDS SUMMARY | 2022-09-05 18:54 | XMS_ITS | Encounter Summary ---
:1995 Author Organization [facility] Address [address] [place] [address] Care Team Providers Name Role Phone No Ref-Primary, Physician Primary Care Provider [phone] Viri Gallardo APRN HAND TOOL LAPPER Unavailable [phone] Viri Gallardo APRN HAND TOOL LAPPER Unavailable [phone] Reason for Visit Reason Comments Hematuria Encounter Details Date Type Department Care Team Description 04/16/2021 Emergency [facility] Karena Garcia Acute cys titis with hematuria; [facility] Emergency Dep t JAGDISH Hung Deliberate self-cutting [address] [facility] [place] [id number] [address] [phone] [facility] [address] [place], [place] [id number] (Wo rk) Social History Tobacco Use Types [...] been in contact with No / Unsure 04/16/2021 9:18 PM CDT someone who was confirmed or suspected to have Coronavirus / COVID-19? documented as of this encounter Last Filed Vital Signs Vital Sign Reading Time Taken Comments Blood Pressure 131/82 04/16/2021 10:15 PM CDT Pulse 70 04/16/2021 10:15 PM CDT Temperature 36.8 ??C (98.3 ??F) 04/16/2021 9:42 PM CDT Respiratory Rate 18 04/16/2021 10:15 PM CDT Oxygen Saturation 99% 04/16/2021 10:15 PM CDT Inhaled Oxygen Concentration - - Weight - - Height - - Body Mass Index - - documented in this encounter Discharge Instructions Discharge InstructionsKarena Garcia PA-C - 04/16/2021 11:42 PM CDT Discharge Instructions Urinary Tract Infection You or your child have been diagnosed with a urinary tract infection, or UTI. The urinary tract includes the kidneys (which make urine/pee), ureters (the tubes that carry urine/pee from the kidneys to the bladder), the bladder (which stores urine/pee), and urethra (the tube that carries urine/pee out of the bladder). Urinary tract infections occur when bacteria travel up the urethra into the bladder (bladder infection) and, in some cases, from there into the kidneys (kidney infection). Generally, every Emergency Department visit should have a follow-up clinic visit with either a primary or a specialty clinic/provider. Please follow-up as instructed by your emergency provider today. Return to the Emergency Department if: You or your child have severe back pain. You or your child are vomiting (throwing up) so that you cannot take your medicine. You or your child have a new fever (had not previously had a fever) over 101??F. You or your child have confusion or are very weak, or feel very ill. Your child seems much more ill, will not wake up, will not respond right, or is crying for a long time and will not calm down. You or your child are showing signs of dehydration. These signs may include decreased urination (pee), dry mouth/gums/tongue, or decreased activity. Follow-up with your provider: Children under 24 months need to be seen by their regular provider within one week after a diagnosisof a UTI. It may be necessary to do some more tests to look at the child???s kidney or bladder. You should begin to feel better within 24 - 48 hours of starting your antibiotic; follow-up with your regular clinic/doctor/provider if this is not the case. Treatment: You will be treated with an antibiotic to kill the bacteria. We have to make an educated guess, based on what we know about common bacteria and antibiotics, as to which antibiotic will work for your infection. We will be correct most times but there will be some cases where the antibiotic chosen is not correct (see urine cultures below). Take a pain medication such as acetaminophen (Tylenol??) or ibuprofen (Advil??, Motrin??, Nuprin??). Phenazopyridine (Pyridium??, Uristat??) is a prescription medication that numbs the bladder to reduce the burning pain of some UTIs. The same medication is available in a non-prescription version (Azo-Standard??, Urodol??). This medication will change the color of the urine and tears (usually blue or o range). If you wear contacts, do not wear them while taking this medication as they may be stained by the medication. Urine Cultures: If indicated, a urine culture may have been performed today. This test generally takes 24-48 hours to complete so the results are not known at this time. The results can confirm that an infection is present but also determine which antibiotic is effective for the specific bacteria that is causing the infection. If your urine culture shows that the antibiotic you were given today will not work to treat your infection, we will attempt to contact you to make arrangements to change the antibiotic. If the culture confirms that the antibiotic is effective for your infection, you will not be contacted. Weoften recommend follow-up with your regular physician/provider on the culture results regardless of this process. Antibiotic Warning: If you have been placed on antibiotics - watch for signs of allergic reaction. These include rash, lip swelling, difficulty breathing, wheezing, and dizziness. If you develop any of these symptoms, stop the antibiotic immediately and go to an emergency room or urgent care for evaluation. Probiotics: If you have been given an antibiotic, you may want to also take a probiotic pill or eat yogurt with live cultures. Probiotics have good bacteria to help your intestines stay healthy. Studies have shown that probiotics help prevent diarrhea and other intestine problems (including C. diff infection) when you take antibiotics. You can buy these without a prescription in the pharmacy section of the store. If you were given a prescription for medicine here today, be sure to read all of the information (including the package insert) that comes with your prescription. This will include important information about the medicine, its side effects, and any warnings that you need to know about. The pharmacist who fills the prescription can provide more information and answer questions you may have about the medicine. If you have questions or concerns that the pharmacist cannot address, please call or return to the Emergency Department. Remember that you can always come back to the Emergency Department if you are not able to see your regular provider in the amount of time listed above, if you get any new symptoms, or if there is anything that worries you. documented in this encounter Medications at Time of Discharge Medication Sig Dispensed Refills Start Date End Date FLUoxetine (PROZAC) 20 Take 20 mg by mouth 0 MG capsule daily hydrOXYzine (ATARAX) Take 25 mg by mouth 0 25 MG tablet daily 1-2 tablets every 8 hours lamoTRIgine (LAMICTAL) Take 25 mg by mouth 3 0 25 MG tablet times daily levonorgestrel-ethinyl Take 1 tablet by mouth 84 tablet 3 0 04/10/2021 estradiol (AVIANE) daily Take 0.1-20 MG-MCG continuously to skip a tabletIndications: period control counseling SUMAtriptan (IMITREX) Take 1 tablet (100 mg) 12 tablet 3 100 MG by mouth at onset of tabletIndications: headache for migraine Migraine without aura May repeat in 2 hours and without status if needed: max 2/day; migrainosus, not average number of intractable headaches monthly 4 varenicline (CHANTIX Take 0.5 mg tab daily 53 tablet 0 /10/2020 CL) 0.5 MG X 11 & 1 for 3 days, THEN 0.5 MG X 42 mg tab twice daily for tabletIndications: 4 days, THEN 1 mg Tobacco abuse twice daily. varenicline (CHANTIX) Take 1 tablet (1 mg) 60 tablet 3 10/2020 1 MG by mouth 2 times daily tabletIndications: Tobacco abuse cephALEXin (KEFLEX) Take 1 capsule (500 10 capsule 0 021 04/21/2021 500 MG capsule mg) by mouth 2 times daily for 5 days documented as of this encounter ED Notes Pro Mayo RN - 04/16/2021 9:41 PM CDT Pt reports hematuria starting around 1600, hx of UTIs, but had UA at clinic with no result. Just finished her period, still reporting anterior lower abd cramping. ABCs intact, A/O x4. Pt did screen positive for SI, as she was seen on Wednesday for left arm self harm, but currently denies SI. Karena Garcia PA-C - 04/16/2021 9:18 PM CDT History Chief Complaint: Hematuria HPI Joel Bautista is a 25 year old female with history of urinary tract infections who presents with hematuria starting at 1600 today. Today the patient reports she went to Urgent Care after her hematuriastarted. She states they prescribed her Bactrim and sent her here after her uranalysis was inconclusive there. She reports she finished her period two days ago. Joel reports some associated vomiting,her last episode being at 1900 tonight. She notes some back pain, dizziness, and fatigue. She would like to check her hemoglobin as she is concerned about blood loss after cutting her left forearm a few days ago, a heavy period, and now hematuria. She denies fever, current suicidal ideation, vaginal discharge, and concerns for STD's. Review of Systems Constitutional: Positive for fatigue. Negative for fever. Genitourinary: Positive for dysuria. Negative for vaginal bleeding and vaginal discharge. Musculoskeletal: Positive for back pain. Neurological: Positive for dizziness. Psychiatric/Behavioral: Positive for self-injury. Negative for suicidal ideas. All other systems reviewed and are negative. Allergies: No known drug allergies Medications: Bactrim Aviane Imitrex Chantix Cl Chantix Lamictal Hydroxyzine Prozac control: started last week Past Medical History: Anxiety Bipolar 1 disorder Borderline personality disorder Depression Marijuana dependence Migraines Post traumatic stress disorder Substance abuse Family History: Hypertension (Mother) Social History: Presents to the ED by herself Has children Physical Exam Patient Vitals for the past 24 hrs: BP Temp Temp src Pulse Resp SpO2 04/16/21 2215 131/82 -- -- 70 18 99 % 04/16/21 2142 124/80 98.3 ??F (36.8 ??C) Temporal 84 20 99 % Physical Exam General: Alert and interactive. Appears well. Head: Atraumatic, without obvious lesion, abrasion, hematoma. Eyes: The pupils are equal and round. No scleral icterus. ENT: No obvious abnormalities to the ears or nose. Mucous membranes moist. Neck:Trachea is in the midline. No obvious swelling to the neck. Full range of motion. CV: Regular rate. Extremities well perfused. Capillary refill brisk in fingers. Multiple superficialcuts to the left UE. Resp: Non-labored, no retractions or accessory muscle use. GI: Abdomen is not distended. No abdominal TTP. No CVA tenderness. MS: Moving all extremities well. Neuro: Alert and oriented x 3. Non-focal examination. Psych: Awake. Alert. Normal affect. Appropriate interactions. Emergency Department Course Laboratory: Hemoglobin: 12.6 UA with microscopic: large blood, protein albumin 30, Large leukocyte esterase, WBC/HPF >182 (H),WBC/HPF >182 (H), WBC Clumps present, few bacteria, Mucous present o/w WNL Emergency Department Course: Reviewed: I reviewed nursing notes, vitals and past medical history Assessments: 2229 I obtained history and examined the patient as noted above. 2344 I rechecked the patient and explained findings. Interventions: 2324 Keflex 500 mg PO Disposition: The patient was discharged to home. Impression & Plan Medical Decision Making: Joel Bautista is a 25 year old female who presents with hematuria and dysuria. Her urine shows multiple markers for infection. She was seen at an urgent care, where they were unable to fully analyze her urine given the extensive amount of blood, and thus they sent her here for further evaluation. Interestingly, they started her on Bactrim for her UTI, and she is not sure why they insisted she come to the Emergency Department. She denies any vaginal discharge or concern for sexually transmitted infections at this time. She does have superficial cuts to the left upper extremity. She was evaluated [facility] for this a few days ago. She denies any suicidal intent or plan today, and states this was done as a result of PTSD. She has no persistent vomiting, flank pain, fevers, or other concerning signs/symptoms that would suggest pyelonephritis. I have suggested that she begin Keflex instead of Bactrim and take this twice daily for the next five days. Her for initial dose was given here. Sheshould return for worsening symptoms. Diagnosis: ICD-10-CM 1. Acute cystitis with hematuria N30.01 2. Deliberate self-cutting Z72.89 Discharge Medications: New Prescriptions CEPHALEXIN (KEFLEX) 500 MG CAPSULE Take 1 capsule (500 mg) by mouth 2 times daily for 5 days Scribe Disclosure: Patrick Lincoln, am serving as a scribe at 10:29 PM on 04/16/2021 to document services personally performed by Karena Garcia PA-C based on my observations and the provider's statements to me. Karena Garcia PA-C 04/17/21 0144 documented in this encounter Plan of Treatment Not on filedocumented as of this encounter Procedures Procedure Name Priority Date/Time Associated Comments Diagnosis HEMOGLOBIN STAT 04/16/2021 11:18 Results for this PM CDT procedure are i n the results section. ROUTINE UA WITH STAT 04/16/2021 10:27 Results for this MICROSCOPIC PM CDT procedure are i n the results section. documented in this encounter Results Hemoglobin (04/16/2021 11:18 PM CDT) P athologist Signature Hemoglobin 12.6 11.7 - 15.7 04/16/2021 [facility] g/dL 11:26 PM CDT HOSPITAL Specimen Anatomical Collection Method Collection Time Receive d Time (Source) Location / / Volume Laterality Blood 04/16/2021 11:18 04/16/2021 PM CDT 11:24 PM CDT Karena Garcia PA-C LAB - BLOOD ORDERABLES Performing Organization Address City/State/ZIP Code Phon e Number [facility] [address], [place] [address] [facility] [address], [place] [address] [facility] [phone] (ABNORMAL) UA with Microscopic (04/16/2021 10:27 PM T) [facility] Method Time Signature Color Urine Yellow 04/16/2021 [facility] 10:47 PM [facility] Appearance Urine Slightly 04/16/2021 [facility] Cloudy 10:47 PM [facility] Glucose Urine Negative NEG^Negat 04/16/2021 [facility] mg/dL 10:47 PM [facility] Bilirubin Urine Negative NEG^Negat 04/16/2021 [facility] 10:47 PM [facility] Ketones Urine Negative NEG^Negat 04/16/2021 [facility] [place] mg/dL 10:47 PM [facility] Specific [place] 1.020 1.003 - 04/16/2021 [facility] Urine 1.035 10:47 PM [facility] Blood Urine Large (A) NEG^Negat 04/16/2021 [place] 10:47 PM [facility] pH Urine 6.0 5.0 - 7.0 04/16/2021 [facility] pH 10:47 PM [facility] Protein Albumin 30 (A) NEG^Negat 04/16/2021 [facility] Urine [place] mg/dL 10:47 PM [facility] Urobilinogen Normal 0.0 - 2.0 04/16/2021 [facility] mg/dL mg/dL 10:47 PM [facility] Nitrite Urine Negative NEG^Negat 04/16/2021 [facility] [place] 10:47 PM [facility] Leukocyte Large (A) NEG^Negat 04/16/2021 [facility] Esterase Urine [facility] 10:47 PM [facility] Source Midstream 04/16/2021 [facility] Urine 10:27 PM [facility] WBC Urine >182 (H) 0 - 5 04/16/2021 [facility] /HPF 10:47 PM [facility] RBC Urine >182 (H) 0 - 2 04/16/2021 [place] [facility] /HPF 10:47 PM [facility] WBC Clumps Present (A) NEG^Negat 04/16/2021 [facility] /HPF 10:47 PM [facility] Bacteria Urine Few (A) NEG^Negat 04/16/2021 [facility] [place] /HPF 10:47 PM [facility] Mucous Urine Present (A) NEG^Negat 04/16/2021 [facility] [place] /LPF 10:47 PM [facility] Specimen (Source) Anatomical Collection Method Collection Time Re ceived Time Location / / Volume Laterality Examination of 04/16/2021 10:27 midstream urine PM CDT 10:38 PM CDT specimen (procedure) Karena Garcia PA-C LAB - URINE ORDERABLES Performing Organization Address City/State/ZIP Code Phon e Number [place] [address] [address] [place] [address] [phone] documented in this encounter Visit Diagnoses Diagnosis Acute cystitis with hematuria Acute cystitis Deliberate self-cutting Unspecified nonpsychotic mental disorder documented in this encounter Administered Medications Inactive Administered Medications - up to 3 most recent administrations Medication Order MAR Action Action Date Dose Rate Site cephALEXin (KEFLEX) capsule 500 Given 04/16/2021 11:24 PM CDT 50 0 mg mg STAT, 500 mg, Oral, ONCE, On Wed04/16/21 at 2310, For 1 dose, Indications: Urinary Tract Infection documented in this encounter Active and Recently Administered Medications Times are shown in CDT. Scheduled Medication Order 04/14/2021 04/15/2021 04/16/2021 cephALEXin (KEFLEX) capsule 500 mg (COMPLETED) 2323 (Given - Provider: Alison Hunter RN) STAT, 500 mg, Oral, ONCE, Wed04/16/21 at 2310, For 1 dose, Indications: Urinary Tract Infection documented in this encounter Additional Health Concerns Assessment Noted Time PHQ-9 Depression Total Score: 15 09/16/2018 1:27 PM CS T documented as of this encounter Care Teams Orchid Superintendent Relationship Specialty Start Date End Date No Ref-Primary, Physician PCP - General 04/15/20 Viri Gallardo APRN HAND TOOL [employer]PER Nurse Practitioner 04/15/20 [address] [facility] [place] [phone] Viri Gallardo APRN HAND TOOL LAPPER Assigned PCP 08/18/20 04/24/21 [address] [facility] [place] [phone] documented as of this encounter
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
--- OUTSIDE RECORDS SUMMARY | 2022-09-05 18:54 | XMS_ITS | Encounter Summary ---
:1995 Author Organization [place] Address [address] [place] [address] Care Team Providers Name Role Phone No Ref-Primary, Physician Primary Care Provider [phone] Viri Gallardo APRN ASSISTANT STORE MANAGER Unavailable + Viri Gallardo APRN ASSISTANT STORE MANAGER Unavailable + Encounter Details Date Type Department Care Team Description 04/16/2021 Travel Social History Tobacco Use Types Packs/Day [...] / COVID-19? documented as of this encounter Plan of Treatment Not on filedocumented as of this encounter Visit Diagnoses Not on filedocumented in this encounter Additional Health Concerns Assessment Noted Time PHQ-9 Depression Total Score: 15 09/16/2018 1:27 PM CS T documented as of this encounter Care Teams Aircraft Body Repairer Relationship Specialty Start Date End Date No Ref-Primary, Physician PCP - General 04/15/20 Viri Gallardo APRN CNP Nurse Practitioner 04/15/20 [address] [facility] [place] [address] Viri Gallardo APRN ASSISTANT STORE MANAGER Assigned PCP 08/18/20 04/24/21 [address] [facility] [place] [address] documented as of this encounter
--- OUTSIDE RECORDS SUMMARY | 2022-09-05 18:54 | XMS_ITS | Encounter Summary ---
:1995 Author Organization [place] Address [address] [place] [address] Care Team Providers Name Role Phone No Ref-Primary, Physician Primary Care Provider Viri Gallardo SCALE AND SKIP CAR OPERATOR HERBARIUM WORKER Unavailable [phone] Kenisha Garcia SCALE AND SKIP CAR OPERATOR HERBARIUM WORKER Unavailable [phone] Encounter Details Date Type Department Care Team Description 03/31/2022 Travel Social History Tobacco Use Types Packs/Day [...] in contact with No / Unsu re 03/31/2022 8:48 AM CDT someone who was confirmed or suspected to have Coronavirus/COVID-19? documented as of this encounter Plan of Treatment Not on filedocumented as of this encounter Visit Diagnoses Not on filedocumented in this encounter Additional Health Concerns Assessment Noted Time PHQ-9 Depression Total Score: 15 09/16/2018 1:27 PM CS T documented as of this encounter Care Teams Showcase Maker Relationship Specialty Start Date End Date No Ref-Primary, Physician PCP - General 04/15/20 Viri Gallardo APRN HERBARIUM WORKER Nurse Practitioner 04/15/20 [address] [facility] [place] [id number] Kenisha Garcia APRN HERBARIUM WORKER Assigned PCP 04/25/21 [address] [facility] [place] [address] documented as of this encounter
--- OUTSIDE RECORDS SUMMARY | 2022-09-05 18:54 | XMS_ITS | Encounter Summary ---
:1995 Author Organization [place] Address [address] [place] [address] Care Team Providers Name Role Phone No Ref-Primary, Physician Primary Care Provider [phone] Viri Gallardo DIRECT SUPPORT WORKER STEWARD/STEWARDESS BANQUET Unavailable [phone] Kenisha Garcia DIRECT SUPPORT WORKER STEWARD/STEWARDESS BANQUET Unavailable [phone] Encounter Details Date Type Department Care Team Description 04/27/2021 Travel Social History Tobacco Use Types Packs/Day [...] documented as of this encounter Care Teams Police Booking Officer Relationship Specialty Start Date End Date No Ref-Primary, Physician PCP - General 04/15/20 Viri Gallardo APRN STEWARD/STEWARDESS BANQUET Nurse Practitioner 04/15/20 [address] [facility] [place] [id number] Kenisha Garcia APRN STEWARD/STEWARDESS BANQUET Assigned PCP 04/25/21 [address] [facility] [place] [address] documented as of this encounter
--- OUTSIDE RECORDS SUMMARY | 2022-09-05 18:54 | XMS_ITS | Encounter Summary ---
:1995 Author Organization [place] Address [address] [facility] [address] Care Team Providers Name Role Phone No Ref-Primary, Physician Primary Care Provider [phone] Viri Gallardo IOS SOFTWARE ENGINEER MANAGER PRIVACY Unavailable [phone] Kenisha Garcia IOS SOFTWARE ENGINEER MANAGER PRIVACY Unavailable [phone] Reason for Visit Reason Comments Ultrasound L2- choroid plexus has cribi form appearance on outside ultrasound Encounter Details Date Type Department Care Team Description 06/05/2022 Office Visit [facility] Maria Victoria Robles MD [address] [place], [place] [address] Suspected Maternal Medicine Juan José Barrera MD [address] [place] [address] anomaly, antepartum, [facility] single or unspecified [address] [facility] [address] (Primary Dx) [address] [place] [address] Social History Tobacco Use Types Packs/Day Years [...] have Coronavirus/COVID-19? documented as of this encounter Progress Notes Juan José Barrera MD - 06/05/2022 10:45 AM CDT Please see Imaging tab under Chart Review for details of today's visit. Juan José Barrera documented in this encounter Plan of Treatment Not on filedocumented as of this encounter Visit Diagnoses Diagnosis Suspected anomaly, antepartum, sin gle or unspecified fetus - Primary documented in this encounter Additional Health Concerns Assessment Noted Time PHQ-9 Depression Total Score: 15 09/16/2018 1:27 PM CS T documented as of this encounter Care Teams Professor Of Food Biochemistry Relationship Specialty Start Date End Date No Ref-Primary, Physician PCP - General 04/15/20 Viri Gallardo APRN MANAGER PRIVACY Nurse Practitioner 04/15/20 [address] [facility] [place] [address] Kenisha Garcia APRN MANAGER PRIVACY Assigned PCP 04/25/21 [address] [facility] [place] [address] documented as of this encounter
--- OUTSIDE RECORDS SUMMARY | 2022-09-05 18:54 | XMS_ITS | Encounter Summary ---
:1995 Author Organization [place] Address [address] [place] [address] Care Team Providers Name Role Phone No Ref-Primary, Physician Primary Care Provider [phone] Viri Gallardo APRN OUTCOME ANALYST Unavailable + Viri Gallardo APRN OUTCOME ANALYST Unavailable + Encounter Details Date Type Department Care Team Description 03/03/2021 Travel Social History Tobacco Use Types Packs/Day [...] documented as of this encounter Care Teams Shiatsu Therapist Relationship Specialty Start Date End Date No Ref-Primary, Physician PCP - General 04/15/20 Viri Gallardo APRN CNP Nurse Practitioner 04/15/20 [address] [facility] [place] [address] Viri Gallardo APRN OUTCOME ANALYST Assigned PCP 08/18/20 04/24/21 [address] [facility] [place] [address] documented as of this encounter
--- OUTSIDE RECORDS SUMMARY | 2022-09-05 18:54 | XMS_ITS | Encounter Summary ---
:1995 Author Organization [place] Address [address] [place] [address] Care Team Providers Name Role Phone No Ref-Primary, Physician Primary Care Provider [phone] Viri Gallardo APRN HOSPITAL EDUCATOR Unavailable + Viri Gallardo APRN HOSPITAL EDUCATOR Unavailable + Encounter Details Date Type Department Care Team Description 04/10/2021 Travel Social History Tobacco Use Types Packs/Day [...] documented as of this encounter Care Teams Motion Graphics Artist Relationship Specialty Start Date End Date No Ref-Primary, Physician PCP - General 04/15/20 Viri Gallardo APRN CNP Nurse Practitioner 04/15/20 [address] [facility] [place] [address] Viri Gallardo APRN HOSPITAL EDUCATOR Assigned PCP 08/18/20 04/24/21 [address] [facility] [place] [address] documented as of this encounter
--- OUTSIDE RECORDS SUMMARY | 2022-09-05 18:54 | XMS_ITS | Encounter Summary ---
:1995 Author Organization [place] Address [address] [place] [address] Care Team Providers Name Role Phone No Ref-Primary, Physician Primary Care Provider [phone] Viri Gallardo APRN PLATE PAINTER APPRENTICE Unavailable [phone] Viri Gallardo APRN PLATE PAINTER APPRENTICE Unavailable [phone] Encounter Details Date Type Department Care Team Description 03/31/2021 Telephone [facility] Viri Gallardo Eagan APRN PLATE PAINTER APPRENTICE [address] [facility] [address] [facility] [address] [place] [address] [place] [address] [phone] Social History Tobacco Use Types Packs/Day Years [...] of this encounter Plan of Treatment Scheduled Orders Name Type Priority Associated Diagnoses Order S chedule Chlamydia trachomatis Microbiology Routine Routine screening f or Expected: PCR STI (sexually 03/31/2021 transmitted infection) (Appr oximate), Expires: 2021 documented as of this encounter Visit Diagnoses Diagnosis Routine screening for STI (sexually hernandez smitted infection) - Primary Screening examination for venereal disea se documented in this encounter Additional Health Concerns Assessment Noted Time PHQ-9 Depression Total Score: 15 09/16/2018 1:27 PM CS T documented as of this encounter Care Teams Weather Forcaster Relationship Specialty Start Date End Date No Ref-Primary, Physician PCP - General 04/15/20 Viri Gallardo APRN PLATE PAINTER APPRENTICE Nurse Practitioner 04/15/[address] [place] [address] [place] [address] Viri Gallardo APRN PLATE PAINTER APPRENTICE Assigned PCP 08/18/20 04/24/21 [facility] [place] [address] documented as of this encounter
--- OUTSIDE RECORDS SUMMARY | 2022-09-05 18:54 | XMS_ITS | Encounter Summary ---
:1995 Author Organization [place] Address [address] [place] [address] Care Team Providers Name Role Phone No Ref-Primary, Physician Primary Care Provider [phone] Viri Gallardo APRN HOME SERVICE TECHNICIAN Unavailable + Viri Gallardo APRN HOME SERVICE TECHNICIAN Unavailable + Encounter Details Date Type Department Care Team Description 01/09/2021 Travel Social History Tobacco Use Types Packs/Day [...] documented as of this encounter Care Teams Stockbroker Relationship Specialty Start Date End Date No Ref-Primary, Physician PCP - General 04/15/20 Viri Gallardo APRN CNP Nurse Practitioner 04/15/20 [address] [facility] [place] [address] Viri Gallardo APRN HOME SERVICE TECHNICIAN Assigned PCP 08/18/20 04/24/21 [address] [facility] [place] [address] documented as of this encounter
--- OUTSIDE RECORDS SUMMARY | 2022-09-05 18:54 | XMS_ITS | Encounter Summary ---
:1995 Author Organization [facility] Address [address] [place] [address] Care Team Providers Name Role Phone No Ref-Primary, Physician Primary Care Provider [phone] Viri Gallardo [employer] Unavailable [phone] Kenisha Garcia [employer] Unavailable [phone] Reason for Visit Reason Comments Vaginal Bleeding Encounter Details Date Type Department Care Team Description 03/31/2022 Emergency [facility] Collins Ramos Vaginal bl eeding in ; [facility] Emergency JAGDISH Rivas Subchorionic hematoma in first trimester Dept [facility] [address] [place], [place] [address] [id number] [place] [address] [place], [place] [id number] (Wo rk) Social History Tobacco Use Types [...] have Coronavirus/COVID-19? documented as of this encounter Last Filed [...] documented in this encounter Discharge Instructions Discharge Collins Marin PA-C - 03/31/2022 10:45 AM CDT Discharge Instructions Vaginal Bleeding in Bleeding in early can be a sign of a miscarriage or an abnormal , but often is innocent and the will continue normally. We may do blood tests and ultrasound to try to determine what is causing the bleeding, but sometimes we are unable to tell. If this is the case, it will often require more time, more blood tests, and another ultrasound. Generally, every Emergency Department visit should have a follow-up clinic visit with either a primary or a specialty clinic/provider. Please follow-up as instructed by your emergency provider today. Return to the Emergency Department if: You have severe abdominal (belly) or pelvic pain. You faint, or feel lightheaded or dizzy. Your bleeding gets much worse. You pass any tissue--solid material that does not look like a blood clot. If you pass tissue, save it (even if you have to pull it out of the toilet) and put it in a plastic bag or jar and bring it in. You have a fever of 100.5??F or higher. If no could be seen: It may be that everything is normal and it is just too early to see the . It is also possible that you could have an ectopic , which is a in an abnormal location, such as inthe tube (???tubal ?? ). We don???t see evidence that this is likely today but we cannot exclude it with certainty until a can be seen in the uterus (womb) and an ectopic can cause severe internal bleeding or so follow-up is very important. You should not be alone, in case you suddenly become very sick. You should not have sex or put anything in your vagina. If a was seen in your uterus: If a heartbeat could be seen, the chance of miscarriage is lower but because you had bleeding the chance of a miscarriage still exists. You should not have sex or put anything in your vagina. Follow-up as directed with your PROGRAM DIRECTOR [employer]OUTING provider. Facts about miscarriage: We hope you do not have a miscarriage, but if you do, here are important things to know: Early miscarriage is very common, and having one miscarriage does not mean you will have problems with another . Nothing you did caused it. Taking medicine, drinking alcohol, having sex, exercising, or falling down will not cause a miscarriage. If you were given a prescription for [...] 0.5 mg tab daily 53 tablet 0 /0 10/2020 MARNIE) 0.5 MG X 11 & 1 MG for 3 days, THEN 0.5 mg X 42 tabletIndications: tab twice daily for 4 Tobacco abuse days, THEN 1 mg twice daily. varenicline (CHANTIX) 1 Take 1 tablet (1 mg) by 60 tablet 3 04/10/2021 MG tabletIndications: mouth 2 times daily Tobacco abuse documented as of this encounter ED Notes Aneta Miller RN - 03/31/2022 8:55 AM CDT Patient presents to the ED reporting that she passed some tissue or a blood clot this morning. Is 13weeks . Denies pain. History of previous miscarriage per patient report in September. HEWT Collins Ramos PA-C - 03/31/2022 8:48 AM CDT History Chief Complaint: Vaginal Bleeding HPI Joel Amos is a 26 year old female G3, P1 who presents with vaginal bleeding. The patient is about 12 to 13 weeks by ultrasound dates. This morning she noticed a little bit of spotting followed by passage of a moderately sized clot of blood. She notes this is since subsided. She denies any abdominal/pelvic pain fever dysuria hematuria or vomiting. No dizziness or shortness of breath. Review of Systems All other systems reviewed and are negative. Allergies: Dairy Digestive Gluten Meal Medications: FLUoxetine (PROZAC) 20 MG capsule hydrOXYzine (ATARAX) 25 MG tablet lamoTRIgine (LAMICTAL) 25 MG tablet levonorgestrel-ethinyl estradiol (AVIANE) 0.1-20 MG-MCG tablet SUMAtriptan (IMITREX) 100 MG tablet varenicline (CHANTIX MARNIE) 0.5 MG X 11 & 1 MG X 42 tablet varenicline (CHANTIX) 1 MG tablet Past Medical History: Past Medical History: Diagnosis Date ??? Anxiety ??? Bipolar 1 disorder (H) ??? Bipolar 1 disorder (H) ??? Borderline personality disorder (H) 03/11/2021 ??? Cervical high risk HPV (human papillomavirus) test positive 08/26/2017 ??? Depression ??? Depressive disorder ??? Marijuana dependence (H) 2016 ??? Migraines ??? Moderate episode of recurrent major depressive disorder (H) 06/01/2016 ??? Papanicolaou smear of cervix with low grade squamous intraepithelial lesion (LGSIL) 08/26/2017 ??? PTSD (post-traumatic stress disorder) 03/11/2021 Patient Active Problem List Diagnosis Date Noted ??? Substance abuse (H) 04/11/2021 Priority: Medium ??? Hallux abducto valgus, bilateral 08/03/2018 Priority: Medium ??? ERRONEOUS ENCOUNTER--DISREGARD 02/22/2018 Priority: Medium ??? Papanicolaou smear of cervix with low grade squamous intraepithelial lesion (LGSIL) 08/26/2017 Priority: Medium 08/26/17 LSIL, +HR HPV, not 16/18, 22 yr old. Plan 1 yr pap cytology only 09/16/18 NIL. Plan 1 yr Dx pap cytology only 07/21/19 NIL pap. Plan pap in 3 years. ??? Moderate bipolar II disorder, most recent episode major depressive (H) 06/17/2016 Priority: Medium ??? Cannabis abuse, continuous - Mild 06/17/2016 Priority: Medium ??? Moderate episode of recurrent major depressive disorder (H) 06/01/2016 Priority: Medium ??? Pain in joint, pelvic region and thigh 01/16/2015 Priority: Medium ??? Health Jail 09/04/2014 Priority: Medium No active Care Coordination at this time. EMERGENCY CARE PLAN Presenting Problem Signs and Symptoms Treatment Plan Questions or concerns during clinic hours I will call the clinic directly Questions or concerns outside clinic hours I will call the 24 hour nurse line at [phone] Patient needs to schedule an appointment I will call the 24 hour scheduling team at [phone] orclinic directly Same day treatment I will call the clinic first, nurse line if after hours, urgent care and expresscare if needed ??? Migraine 03/27/2014 Priority: Medium Past Surgical History: Reviewed. No pertinent PSH. Family History: Family History Problem Relation Age of Onset ??? Hypertension Mother ??? Hypertension Maternal Grandmother ??? Hypertension Maternal Grandfather ??? Cancer Paternal Uncle ??? Glaucoma No family hx of ??? Macular Degeneration No family hx of Social History: No Ref-Primary, Physician The patient presents to the ED with boyfriend Physical Exam Patient Vitals for the past 24 hrs: BP Temp Pulse Resp SpO2 03/31/22 0855 110/80 97.9 ??F (36.6 ??C) 80 16 98 % Physical Exam General: Awake, alert, non-toxic. Head: Scalp is NC/AT Eyes: Conjunctiva normal, PERRL ENT: The external nose and ears are normal. Neck: Normal range of motion without rigidity. CV: Regular rate and rhythm No pathologic murmur, rubs, or gallops. Resp: Breath sounds are clear bilaterally Non-labored, no retractions or accessory muscle use Abdomen: Abdomen is soft, no distension, no tenderness, no masses. No CVA tenderness. MS: No lower extremity edema or asymmetric calf swelling. Skin: Warm and dry, No rash or lesions noted. Neuro: Alert and oriented. GCS 15 No gross motor deficits. No facial asymmetry. Psych: Awake. Alert. Normal affect. Appropriate interactions. Emergency Department Course Imaging: US OB <14 Weeks W Transvaginal Final Result IMPRESSION: 1. Single living intrauterine gestation at 13 weeks 4 days, EDC 10/02/2022. 2. Small subchorionic hemorrhage. HELDER HERNANDEZ MD Report per radiology Laboratory: Labs Ordered and Resulted from Time of ED Arrival to Time of ED Departure CBC WITH PLATELETS AND DIFFERENTIAL - Abnormal Result Value WBC Count 13.6 (*) RBC Count 4.02 Hemoglobin 12.9 Hematocrit 38.4 MCV 96 MCH 32.1 MCHC 33.6 RDW 12.7 Platelet Count 290 % Neutrophils 75 % Lymphocytes 17 % Monocytes 6 % Eosinophils 1 % Basophils 1 % Immature Granulocytes 0 NRBCs per 100 WBC 0 Absolute Neutrophils 10.3 (*) Absolute Lymphocytes 2.3 Absolute Monocytes 0.9 Absolute Eosinophils 0.1 Absolute Basophils 0.1 Absolute Immature Granulocytes 0.1 Absolute NRBCs 0.0 HCG QUANTITATIVE TYPE AND SCREEN, ADULT ABO/RH(D) A POS Antibody Screen Negative SPECIMEN EXPIRATION DATE [id number] ABO/RH TYPE AND SCREEN Emergency Department Course: Reviewed: I reviewed nursing notes, vitals, past medical history, Care Everywhere and MIIC Assessments: I obtained history and examined the patient as noted above. I rechecked the patient and explained findings. Interventions: Medications - No data to display Disposition: The patient was discharged to home. Impression & Plan Medical Decision Makin-year-old G3, P1 female presents with vaginal bleeding in . On examination she is well-appearing and vitally stable with normal hemoglobin and no evidence of excessive blood loss or hemorrhage. She is Rh+ no indication for RhoGAM. Ultrasound obtained which shows live intrauterine with small subchorionic hemorrhage as the source of bleeding. Notes bleeding is slowing at this time.No pain, abdominal exam otherwise benign and nontender not suggestive of intra-abdominal catastrophesuch as appendicitis diverticulitis, ovarian torsion etc. No symptoms of UTI. Discussed avoiding heavy lifting physical activity will call [employer]ING to discuss follow-up within the next several days. Return for fever increasing pain bleeding dizziness syncope shortness of breath or other concerns. Covid-19 Joel Amos was evaluated during a global COVID-19 pandemic, which necessitated consideration thatthe patient might be at risk for infection with the SARS-CoV-2 virus that causes COVID-19. Applicable protocols for evaluation were followed during the patient's care. COVID-19 was considered as part of the patient's evaluation. Diagnosis: ICD-10-CM 1. Vaginal bleeding in O46.90 2. Subchorionic hematoma in first trimester O41.8X10 O46.8X1 Discharge Medications: New Prescriptions No medications on file Scribe Disclosure: Collins Lincoln PA-C, am serving as a scribe at 9:21 AM on 03/31/2022 to document services personally performed by Collins Ramos, based on my observations and the provider's statements to me. Collins Ramos PA-C 03/31/22 1048 documented in this encounter Plan of Treatment Not on filedocumented as of this encounter Procedures Procedure Name Priority Date/Time Associated Comments Diagnosis US OB <14 WEEKS WITH STAT 03/31/2022 10:32 Res ults for this TRANSVAGINAL SINGLE AM CDT procedur e are in the results section. EXTRA TUBE STAT 03/31/2022 9:23 AM Results f or this CDT procedure are i n the results section. EXTRA GREEN TOP STAT 03/31/2022 9:23 AM Result s for this (LITHIUM HEPARIN) CDT procedure are in TUBE the results section. HCG QUANTITATIVE STAT 03/31/2022 9:23 AM Resul ts for this CDT procedure are i n the results section. EXTRA TUBE STAT 03/31/2022 9:20 AM Results f or this CDT procedure are i n the results section. EXTRA RED TOP TUBE STAT 03/31/2022 9:20 AM Res ults for this CDT procedure are i n the results section. EXTRA BLUE TOP TUBE STAT 03/31/2022 9:20 AM Re sults for this CDT procedure are i n the results section. CBC WITH PLATELETS STAT 03/31/2022 9:20 AM Res ults for this AND DIFFERENTIAL CDT procedure a re in the results section. TYPE AND SCREEN, STAT 03/31/2022 9:20 AM Resul ts for this ADULT CDT procedure are i n the results section. CBC WITH PLATELETS & STAT 03/31/2022 9:20 AM R esults for this DIFFERENTIAL CDT procedure are i n the results section. ABO/RH TYPE AND STAT 03/31/2022 9:20 AM Result s for this SCREEN CDT procedure are i n the results section. documented in this encounter Results US OB <14 Weeks W Transvaginal (03/31/2022 10:32 AM CDT) Anatomical Region Laterality Modality Abdomen/Pelvis Ultrasound Specimen (Source) Anatomical Location Collection Method / Collectio n Time Received Time / Laterality Volume Impressions 03/31/2022 10:42 AM CDT IMPRESSION: 1. ??Single living intrauterine gestatio n at 13 weeks 4 days, EDC 10/02/2022. 2. ??Small subchorionic hemorrhage. HELDER HERNANDEZ MD Narrative 03/31/2022 10:42 AM CDT US OB <14 WEEKS WITH TRANSVAGINAL SINGLE 03/31/2022 10:32 AM CLINICAL HISTORY: Vaginal bleeding, 13 w eeks. TECHNIQUE: Transabdominal scans were per formed. Endovaginal ultrasound was performed to better visualize the em bryo. COMPARISON: None. FINDINGS: UTERUS: Single normal appearing intraute rine gestation sac. CRL: measures 73 mm, equals 13 weeks 4 d ays. HEART RATE: 147 bpm. AMNIOTIC FLUID: Normal. PLACENTA: Not yet formed. Small subchori onic hemorrhage at the inferior margin of the gestational sac m easures 2.5 x 0.6 x 0.6 cm. RIGHT OVARY: Normal. LEFT OVARY: Normal. Procedure Note Helder Hernandez MD - 03/31/2022Forma tting of this note might be different from the original. US OB <14 WEEKS WITH TRANSVAGINAL SINGLE 03/31/2022 10:32 AM CLINICAL HISTORY: Vaginal bleeding, 13 w eeks. TECHNIQUE: Transabdominal scans were per formed. Endovaginal ultrasound was performed to better visualize the em bryo. COMPARISON: None. FINDINGS: UTERUS: Single normal appearing intraute rine gestation sac. CRL: measures 73 mm, equals 13 weeks 4 d ays. HEART RATE: 147 bpm. AMNIOTIC FLUID: Normal. PLACENTA: Not yet formed. Small subchori onic hemorrhage at the inferior margin of the gestational sac m easures 2.5 x 0.6 x 0.6 cm. RIGHT OVARY: Normal. LEFT OVARY: Normal. IMPRESSION: 1. Single living intrauterine gestation at 13 weeks 4 days, EDC 10/02/2022. 2. Small subchorionic hemorrhage. HELDER HERNANDEZ MD Collins Ramos PA-C IMG US ORDERABLES Extra Green Top ([place] Heparin) Tube (03/31/2022 9:23 AM CDT) athologist Signature Hold Specimen JIC 03/31/2022 [facility] 10:34 AM CDT Specimen Anatomical Collection Method / Collection Time Recei dariel Time (Source) Location / Volume Laterality Blood STRUCTURE OF RIGHT Venipuncture / 03/31/2022 9:23 06/2 10/2021 9:29 UPPER LIMB / Unknown AM CDT AM CDT Unknown Collins Ramos PA-C LAB - BLOOD ORDERABLES Performing Organization Address City/State/[place] [address] Care Lab [address] Lab (1st floor, no room number) (ABNORMAL) HCG QUANTitative (blood) (03/31/2022 9:23 AM CDT) [facility] Method Time Signature hCG Quantitative 57,860 0 - 5 03/31/2022 [facility] Y (H) IU/L 12:02 PM CDT Comment: Adult: 0-5 IU/L for healthy non- person Neonates: Should be within normal ranges by 2 days after Specimen Anatomical Collection Method / Collection Time Recei dariel Time (Source) Location / Volume Laterality Blood STRUCTURE OF RIGHT Venipuncture / 03/31/2022 9:23 06/2 10/2021 9:29 UPPER LIMB / Unknown AM CDT AM CDT Unknown Collins Ramos PA-C LAB - BLOOD ORDERABLES Performing Organization Address City/[facility]/[place] [address] Care Lab [address] Lab (1st floor, no room number) Extra Red Top Tube (03/31/2022 9:20 AM CDT) athologist Signature Hold Specimen [facility] 03/31/2022 [facility] 10:34 AM CDT Specimen Anatomical Collection Method / Collection Time Recei dariel Time (Source) Location / Volume Laterality Blood BLOOD SPECIMEN / Venipuncture / 03/31/2022 9:20 2021 9:29 Unknown Unknown AM CDT AM CDT Collins Ramos PA-C LAB - BLOOD ORDERABLES Performing Organization Address City/State/[place] [address] Care Lab [address] Lab (1st floor, no room number) Extra Blue Top Tube (03/31/2022 9:20 AM CDT) athologist Signature Hold Specimen JI 03/31/2022 [facility] 10:34 AM CDT Specimen Anatomical Collection Method / Collection Time Recei dariel Time (Source) Location / Volume Laterality Blood BLOOD SPECIMEN / Venipuncture / 03/31/2022 9:20 2021 9:29 Unknown Unknown AM CDT AM CDT Collins Ramos PA-C LAB - BLOOD ORDERABLES Performing Organization Address City/[facility]/ZIP Code [place] [address] Care Lab [address] Lab (1st floor, no room number) Adult Type and Screen (03/31/2022 9:20 AM CDT) [facility] ABO/RH(D) A POS 03/31/2022 [facility] BLOOD 9:11 AM CDT BANK Antibody Negative Negative 03/31/2022 [facility] BLOOD Screen 9:11 AM CDT BANK SPECIMEN [id number] 03/31/2022 [facility] BLOOD EXPIRATION 9:11 AM CDT BANK DATE Specimen Anatomical Collection Method / Collection Time Recei dariel Time (Source) Location / Volume Laterality Blood BLOOD SPECIMEN / Venipuncture / 03/31/2022 9:20 2021 9:29 Unknown Unknown AM CDT AM CDT Collins Ramos PA-C LAB - BLOOD BANK TEST ORDER Performing Organization Address [facility] Phon e Number [facility] BLOOD BANK [address] [place] [address] (ABNORMAL) CBC with platelets and differential (03/31/2022 9:20 AM CDT) [facility] Method Time Signature WBC Count 13.6 (H) 4.0 - 03/31/2022 [facility] 11.0 9:32 AM CDT 10e3/uL RBC Count 4.02 3.80 - 03/31/2022 [facility] 5.20 9:32 AM CDT 10e6/uL Hemoglobin 12.9 11.7 - 03/31/2022 [facility] 15.7 g/dL 9:32 AM CDT Hematocrit 38.4 35.0 - 03/31/2022 [facility] 47.0 % 9:32 AM CDT MCV 96 78 - 100 03/31/2022 [facility] fL 9:32 AM CDT MCH 32.1 26.5 - 03/31/2022 [facility] 33.0 pg 9:32 AM CDT MCHC 33.6 31.5 - 03/31/2022 [facility] 36.5 g/dL 9:32 AM CDT RDW 12.7 10.0 - 03/31/2022 [facility] 15.0 % 9:32 AM CDT Platelet Count 290 150 - 450 03/31/2022 [facility] 10e3/uL 9:32 AM CDT % Neutrophils 75 % 03/31/2022 [facility] 9:32 AM CDT % Lymphocytes 17 % 03/31/2022 [facility] 9:32 AM CDT % Monocytes 6 % 03/31/2022 [facility] 9:32 AM CDT % Eosinophils 1 % 03/31/2022 [facility] 9:32 AM CDT % Basophils 1 % 03/31/2022 [facility] 9:32 AM CDT % Immature 0 % 03/31/2022 [facility] Granulocytes 9:32 AM CDT NRBCs per 100 0 <1 /100 03/31/2022 [facility] WBC 9:32 AM CDT Absolute 10.3 (H) 1.6 - 8.3 03/31/2022 [facility] Neutrophils 10e3/uL 9:32 AM CDT Absolute 2.3 0.8 - 5.3 03/31/2022 [facility] Lymphocytes 10e3/uL 9:32 AM CDT Absolute 0.9 0.0 - 1.3 03/31/2022 [facility] Monocytes 10e3/uL 9:32 AM CDT Absolute 0.1 0.0 - 0.7 03/31/2022 [facility] Eosinophils 10e3/uL 9:32 AM CDT Absolute 0.1 0.0 - 0.2 03/31/2022 [facility] Basophils 10e3/uL 9:32 AM CDT Absolute 0.1 <=0.4 03/31/2022 [facility] Immature 10e3/uL 9:32 AM CDT Granulocytes Absolute NRBCs 0.0 10e3/uL 03/31/2022 [facility] 9:32 AM CDT Specimen Anatomical Collection Method / Collection Time Recei dariel Time (Source) Location / Volume Laterality Blood BLOOD SPECIMEN / Venipuncture / 03/31/2022 9:20 2021 9:29 Unknown Unknown AM CDT AM CDT Collins Ramos PA-C LAB - BLOOD ORDERABLES Performing Organization Address City/State/ZIP Code [place] [address] Care Lab [address] Lab (1st floor, no room number) documented in this encounter Visit Diagnoses Diagnosis Vaginal bleeding in Unspecified antepartum hemorrhage, unspe cified as to episode of care Subchorionic hematoma in first trimester documented in this encounter Additional Health Concerns Assessment Noted Time PHQ-9 Depression Total Score: 15 09/16/2018 1:27 PM CS T documented as of this encounter Care Teams Habilitation Training Specialist Relationship Specialty Start Date End Date No Ref-Primary, Physician PCP - General 04/15/20 Viri Gallardo APRN PRODUCTION WELDER Nurse Practitioner 04/15/20 [address] [facility] [place] [phone] Kenisha Garcia APRN PRODUCTION WELDER Assigned PCP 04/25/21 [address] [facility] [place] IBARRA [id number] documented as of this encounter
--- OUTSIDE RECORDS SUMMARY | 2022-09-05 18:54 | XMS_ITS | Encounter Summary ---
:1995 Author Organization [place] Address [address] [facility] [place] [address] Care Team Providers Name Role Phone No Ref-Primary, Physician Primary Care Provider [phone] Viri Gallardo DIRECTOR OF MATH ROPING TENDER Unavailable [phone] Kenisha Garcia DIRECTOR OF MATH ROPING TENDER Unavailable [phone] Reason for Visit Diagnostic Imaging Ultrasound (Routine) - Pending Review Specialty Diagnoses / Procedures Referred By Contact Refer red To Contact Diagnoses related condition Maria Victoria Robles MD Procedures [facility] US Comprehensive Single [address] [place] [address] Referral ID Status Reason Start Date Expiration Date Visits V isits Requested Authorized [id number] Pending 06/04/2022 06/04/2023 1 1 Review Encounter Details Date Type Department Care Team Description 06/05/2022 Ancillary [facility] Maria Victoria Robles MD [address] [place], [place] [address] related Procedure Maternal Juan José Barrera MD [address] [place] [address] [facility] Medicine [address] [place] [address] Social History Tobacco Use Types [...] Procedure Name Priority Date/Time Associated Comments Diagnosis [facility] US COMPREHENSIVE Routine 06/05/2022 10:49 relate d Results for this SINGLE AM CDT condition procedure are i n the results section. documented in this encounter Results [facility] US Comprehensive Single (06/05/2022 10:49 AM CDT) [...] AMOS Study Date: 05/12 10:15am Pat. NO: [id number] Referring ??MD: LUCHO ROBLES Site: [place] Visual [employer] Stock Associate: Ivonne oneal RDMS : 1995 Age: 27 INDICATION Abnormal cranial anatomy on outside ultr asound. History of post- pre- eclampsia in prior . METHOD Transabdominal ultrasound examination. V iew: Sufficient Cruz . Number of fetuses: 1 DATING ? Date ?Details ?Gest. age ?COSTA LMP ?12/28/2021 ? 22 w + 5 d ? 10/04/2022 Prior assessment ? GA: 8 w + 0 d [...] Biometry: BPD ?52.8 ?mm ? 22w 0d ?Loren ELLIS ?71.7 ?mm ? 22w 1d ?Nicolaides HC ?198.7 ?mm ?22w 0d ?Hadlock Cerebellum tr ?23.9 ? mm ?22w 0d ?Nicolaides AC ?186.3 ?mm ?23w 3d ?69% ?Hadlock Femur ?37.9 ? mm ?22w 1d ?Hadlock Humerus ?36.0 ?mm ? 22w 4d ?Shamir Weight Calculation: EFW ? 529 ? g ? 50% ?Hadlock EFW (lb,oz) ? 1 lb 3 ?oz EFW by ?Hadlock ([id number]) Head / Face / Neck Biometry: Corporate Logistics Manager ? 5.9 ? mm CM ?5.7 ? [...] cava. Inferior vena cava. 3-vessel ? view. 4-iytnlr-vdialvy view. Cardiac position. Cardiac size. Cardiac rhythm. [...] Pat. Name:Lori AMOS Date: 10:15am Pat. NO: [id number] MD:MARIA VICTORIA MYLES [facility]Ivonne reynoso RDMS :1995Age:27 INDICATION Abnormal cranial anatomy [...] 1d Hadlock Humerus 36.0 mm 22w 4d [facility] Weight Calculation: EFW 529 g 50% Hadlock EFW (lb,oz) 1 lb 3 oz EFW by Hadlock ([id number]) Head / Face / Neck Biometry: Corporate Logistics Manager 5.9 mm CM 5.7 mm Nasal bone [...] vena cava. Inferior vena cava. 3-vessel view. 8-zmorht-jxuatuj view. Cardiac po sition. Cardiac size. Cardiac [...] appeared no rmal. Maria Victoria Robles MD [facility] US ORDERABLES documented in this encounter Visit Diagnoses Diagnosis related condition Unspecified complication of , u nspecified as to episode of care documented in this encounter Additional Health Concerns Assessment Noted Time PHQ-9 Depression Total Score: 15 09/16/2018 1:27 PM CS T documented as of this encounter Care Teams Lithographic Retoucher Apprentice Relationship Specialty Start Date End Date No Ref-Primary, Physician PCP - General 04/15/20 Viri Gallardo APRN ROPING TENDER Nurse Practitioner 04/15/[address] [place] [address] [place] [id number] Kenisha Garcia APRN CNP Assigned PCP 04/25/[address] [place] [address] [place] [id number] documented as of this encounter
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
--- OUTSIDE RECORDS SUMMARY | 2022-09-05 18:54 | XMS_ITS | Encounter Summary ---
:1995 Author Organization [place] Address [address] [place] [address] Care Team Providers Name Role Phone No Ref-Primary, Physician Primary Care Provider [phone] Viir Gallardo ADMINISTRATIVE PROFESSIONAL BAILIFF Unavailable [phone] Kenisha Garcia ADMINISTRATIVE PROFESSIONAL BAILIFF Unavailable [phone] Reason for Visit Reason Comments Ultrasound L2 - right choroid plexus srinivasan s cribiform appearance (outside [place]), hx severe preeclampsia Genetic Counseling GC - right choroid plexus srinivasan s cribiform appearance (outside [place]), hx severe preeclampsia Encounter Details Date Type Department Care Team Description 06/04/2022 PRE VISIT [facility] Maternal Coreen Srivastava, [facility] Ultrasound (L2 - right [facility] choroi d plexus has [place] cribiform appearance [address] (outside [place]), hx severe [place] Professional preec lampsia); Genetic Building Counseling ([place] [address] choroid plexus has [phone] cribiform appea skinny (outside [place]), h x severe preeclampsia/) Social History Tobacco Use Types Packs/Day Years Used Date Smoking Tobacco: Every Day Cigarettes 1 Vaping Device Smokeless Tobacco: Never Comments: [place] vapedinson Alcohol Use Standard Drinks/Week Comments Not Currently [...] documented as of this encounter Care Teams Nursing Coordinator Relationship Specialty Start Date End Date No Ref-Primary, Physician PCP - General 04/15/20 Viri Gallardo APRN BAILIFF Nurse Practitioner 04/15/20 [address] [facility] [place] [id number] Kenisha Garcia APRN BAILIFF Assigned PCP 04/25/21 [address] [facility] [place] [address] documented as of this encounter
--- OUTSIDE RECORDS SUMMARY | 2022-09-05 18:55 | XMS_ITS | Encounter Summary ---
:1995 Author Organization [place] Address [address] [place] [address] Care Team Providers Name Role Phone Viri Gallardo APRN, CNP Primary Care Provider [phone] Viri Gallardo APRN, CNP Unavailable [phone] Encounter Details Date Type Department Care Team Description 06/28/2019 Travel Social History Tobacco Use Types Packs/Day Years Used Date Smoking Tobacco: Former Cigarettes 0.3 Smokeless Tobacco: Never Comments: vape Alcohol Use Standard Drinks/Week Comments Yes 0 (1 standard drink = 0.6 oz pure states I don't even know re how alcohol) many a week Alcohol Habits Answer Date Recorded How often [...] documented as of this encounter Care Teams Application Designer Relationship Specialty Start Date End Date Viri Gallardo APRN CNP PCP - General Nurse Practitioner 06/29/17 04/14/20 [address] [facility] [place] [address] Viri Gallardo APRN CNP Assigned PCP 09/12/17 09/16/19 [address] [facility] [place] [address] documented as of this encounter
--- OUTSIDE RECORDS SUMMARY | 2022-09-05 18:55 | XMS_ITS | Encounter Summary ---
:1995 Author Organization [place] Address [address] [place] [address] Care Team Providers Name Role Phone Viri Gallardo APRN, CNP Primary Care Provider [phone] Viri Gallardo APRN, CNP Unavailable [phone] Encounter Details Date Type Department Care Team Description 12/28/2018 Travel Social History Tobacco Use Types Packs/Day Years Used Date Smoking Tobacco: Former Cigarettes 0.3 Smokeless Tobacco: Never Alcohol Use Standard Drinks/Week Comments Yes 0 [...] documented as of this encounter Care Teams Dairy Bacteriologist Relationship Specialty Start Date End Date Viri Gallardo APRN CNP PCP - General Nurse Practitioner 06/29/17 04/14/20 [address] [facility] [place] [address] Viri Gallardo APRN CNP Assigned PCP 09/12/17 09/16/19 [address] [facility] [place] [address] documented as of this encounter
--- OUTSIDE RECORDS SUMMARY | 2022-09-05 18:55 | XMS_ITS | Encounter Summary ---
:1995 Author Organization [place] Address [address] [place] [address] Care Team Providers Name Role Phone Viri Gallardo APRN, CNP Primary Care Provider [phone] Viri Gallardo APRN SUPERVISOR OF WAY Unavailable [phone] Reason for Visit Reason Onset Date Comments Pre-Op Exam Imm/Inj 08/17/2019 Flu Shot Encounter Details Date Type Department Care Team Description 08/17/2019 Office Visit [facility] Chasity Wild general physical exam (Primary Dx); [facility] [place] J[facility]DISH Romero, left; [address] Need for prophylactic vaccin ation and inoculation against influenza [address] [facility] [address] [place] [address] [address] [place], [place] [phone] (Work) [phone] Social History Tobacco Use Types Packs/Day Years Used Date Smoking Tobacco: Former Cigarettes 0.3 Smokeless Tobacco: Never Comments: Juul, vape Alcohol Use Standard Drinks/Week Comments Yes [...] on file documented as of this encounter Last Filed Vital Signs Vital Sign Reading Time Taken Comments Blood Pressure 120/68 08/17/2019 11:03 AM AGILE SCRUM COACH Pulse 85 08/17/2019 11:03 AM AGILE SCRUM COACH Temperature 36.9 ??C (98.4 ??F) 08/17/2019 11:03 AM AGILE SCRUM COACH Respiratory Rate 14 08/17/2019 11:03 AM AGILE SCRUM COACH Oxygen Saturation 97% 08/17/2019 11:03 AM AGILE SCRUM COACH Inhaled Oxygen Concentration - - Weight 56.2 kg (124 lb) 08/17/2019 11:03 AM AGILE SCRUM COACH Height - - Body Mass Index 21.97 07/21/2019 7:57 AM CDT documented in this encounter Patient Instructions Patient InstructionsNhi Varghese - 08/17/2019 11:10 AM CST Before Your Surgery ??? Call your surgeon if there is any change in your health. This includes signs of a cold or flu (such as a sore throat, runny nose, cough, rash or fever). ??? Do not smoke, drink alcohol or take over the counter medicine (unless your surgeon or primary care doctor tells you to) for the 24 hours before and after surgery. ??? If you take prescribed drugs: Follow your doctor???s orders about which medicines to take and which to stop until after surgery. ??? Eating and drinking prior to surgery: follow the instructions from your surgeon ??? Take a shower or bath the night before surgery. Use the soap your surgeon gave you to gently clean your skin. If you do not have soap from your surgeon, use your regular soap. Do not shave or scrubthe surgery site. Wear clean pajamas and have clean sheets on your bed. NO IBUPROFEN/MOTRIN for two days prior to surgery. E SCRUM COACH documented in this encounter Progress Notes Chasity Wild PA-C - 08/17/2019 11:10 AM CST [address] [address] Dept: PRE-OP EVALUATION: Today's date: 08/17/2019 Joel Amos (: 1995) presents for pre-operative evaluation assessment as requested by Dr. Demian Anderson. She requires evaluation and anesthesia risk assessment prior to undergoing surgery/procedure for treatment of bunion. Fax number for surgical facility: [phone] Primary Physician: Viri Gallardo Type of Anesthesia Anticipated: General Patient has a Health Care Directive or Living Will: NO Preop Questions 08/17/2019 Who is doing your surgery? Dr. Demian Anderson What are you having done? Modified left lapidus/Henderson and gastrocnemius recession Date of Surgery/Procedure: Facility or Hospital where procedure/surgery will be performed: [facility] 1. Do you have a history of Heart attack, stroke, stent, coronary bypass surgery, or other heart surgery? No 2. Do you ever have any pain or discomfort in your chest? No 3. Do you have a history of Heart Failure? No 4. Are you troubled by shortness of breath when: walking on a level surface, or up a slight hill, orat night? No 5. Do you currently have a cold, bronchitis or other respiratory infection? No 6. Do you have a cough, shortness of breath, or wheezing? No 7. Do you sometimes get pains in the calves of your legs when you walk? YES - sometimes muscle pain in the calf, comes and goes. 8. Do you or anyone in your family have previous history of blood clots? No 9. Do you or does anyone in your family have a serious bleeding problem such as prolonged bleeding following surgeries or cuts? No 10. Have you ever had problems with anemia or been told to take iron pills? No 11. Have you had any abnormal blood loss such as black, tarry or bloody stools, or abnormal vaginal bleeding? No 12. Have you ever had a blood transfusion? No 13. Have you or any of your relatives ever had problems with anesthesia? No 14. Do you have sleep apnea, excessive snoring or daytime drowsiness? No 15. Do you have any prosthetic heart valves? No 16. Do you have prosthetic joints? No 17. Is there any chance that you may be ? No HPI: HPI related to upcoming procedure: Left foot pain for 4 years, electing to undergo surgery. She takes ibuprofen for the pain as needed. Pain comes and goes. Worse when working long hours MEDICAL HISTORY: Patient Active Problem List Diagnosis Date Noted ??? Hallux abducto valgus, bilateral 08/03/2018 Priority: [...] and thigh 01/16/2015 Priority: Medium ??? Health [facility] 09/04/2014 Priority: Medium No active Care Coordination at this time. EMERGENCY CARE PLAN Presenting Problem Signs and Symptoms Treatment Plan Questions or concerns during clinic hours I will call the clinic directly Questions or concerns outside clinic hours I will call the 24 hour nurse line at [phone] Patient needs to schedule an appointment I will call the 24 hour scheduling team at [phone] orclinic directly Same day treatment I will call the clinic first, nurse line if after hours, urgent care and expresscare if needed ??? Migraine 03/27/2014 Priority: Medium Past Medical History: Diagnosis Date ??? Anxiety ??? Bipolar 1 disorder (H) ??? Cervical high risk HPV (human papillomavirus) test positive 08/26/2017 22 yr old ??? Depression ??? Marijuana dependence (H) 2017 treatment x 2 mo ??? Migraines ??? Moderate episode of recurrent major depressive disorder (H) 06/01/2016 ??? Papanicolaou smear of cervix with low grade squamous intraepithelial lesion (LGSIL) 08/26/2017 08/26/17 LSIL, +HR HPV, not 16/18, 22 yr old History reviewed. No pertinent surgical history. No current outpatient medications on file. OTC products: NSAIDS No Known Allergies Latex Allergy: NO Social History Tobacco Use ??? Smoking status: Former Smoker Packs/day: 0.25 ??? Smokeless tobacco: Never Used ??? Tobacco comment: Juul, vape Substance Use Topics ??? Alcohol use: Yes Alcohol/week: 0.0 standard drinks Frequency: Monthly or less Drinks per session: 1 or 2 Binge frequency: Never History Drug Use ??? Frequency: 7.0 times per week ??? Types: Marijuana REVIEW OF SYSTEMS: Review of Systems Constitutional: Negative. HENT: Negative. Eyes: Negative. Respiratory: Negative. Cardiovascular: Negative. Gastrointestinal: Negative. Genitourinary: Negative. Musculoskeletal: As in HPI Neurological: Negative. Psychiatric/Behavioral: Negative. EXAM: BP 120/68 Pulse 85 Temp 98.4 ??F (36.9 ??C) (Tympanic) Resp 14 Wt 56.2 kg (124 lb) SpO2 97% BMI 21.97 kg/m?? DIAGNOSTICS: Physical Exam Constitutional: General: She is not in acute distress. Appearance: She is well-developed. She is not diaphoretic. HENT: Head: Normocephalic. Right Ear: External ear normal. Left Ear: External ear normal. Nose: Nose normal. Eyes: Conjunctiva/sclera: Conjunctivae normal. Neck: Musculoskeletal: Normal range of motion. Cardiovascular: Rate and Rhythm: Normal rate and regular rhythm. Heart sounds: Normal heart sounds. Pulmonary: Effort: Pulmonary effort is normal. Breath sounds: Normal breath sounds. Skin: General: Skin is warm and dry. Neurological: Mental Status: She is alert and oriented to person, place, and time. Psychiatric: Judgement: Judgment normal. IMPRESSION: Reason for surgery/procedure: bunion left foot The proposed surgical procedure is considered INTERMEDIATE risk. REVISED CARDIAC RISK INDEX The patient has the following serious cardiovascular risks for perioperative complications such as ([place], PE, VFib and 3?? AV Block): No serious cardiac risks INTERPRETATION: 0 risks: Class I (very low risk - 0.4% complication rate) The patient has the following additional risks for perioperative complications: No identified additional risks ICD-10-CM 1. Preop general physical exam Z01.818 HCG Qual, Urine ([id number]) 2. Bunion, left M21.612 3. Need for prophylactic vaccination and inoculation against influenza Z23 INFLUENZA VACCINE IM >6 MONTHS VALENT IIV4 [61451] Vaccine Administration, Initial [99911] RECOMMENDATIONS: --Patient is to take all scheduled medications on the day of surgery EXCEPT for modifications listedbelow. Anticoagulant or Antiplatelet Medication Use NSAIDS: Ibuprofen (Motrin): Stop one day prior to surgery APPROVAL GIVEN to proceed with proposed procedure, without further diagnostic evaluation Signed Electronically by: Chasity Wild PA-C Copy of this evaluation report is provided to requesting physician. [facility] Preop Guidelines Revised Cardiac Risk Index E SCRUM COACH documented in this encounter Plan of Treatment Not on filedocumented as of this encounter Procedures Procedure Name Priority Date/Time Associated Comments Diagnosis HCG QUALITATIVE URINE Routine 08/17/2019 11:36 Preop general R esults for this AM AGILE SCRUM COACH physical exam procedure are in the results section. documented in this encounter Results HCG Qual, Urine ([id number]) (08/17/2019 11:36 AM AGILE SCRUM COACH) [facility] Method Time Signature HCG Qual Urine Negative NEG^Negati 08/17/2019 LE ROY ve 11:48 AM AGILE SCRUM COACH [facility] Comment: This test is for screening purposes. ??R esults should be interpreted along with the clinical picture. ??Confirmation te sting is available if warranted by ordering [id number], HCG Quantitative Pregna ncy. Specimen Anatomical Collection Method Collection Time Receive d Time (Source) Location / / Volume Laterality Urine specimen 08/17/2019 11:36 9 (specimen) AM AGILE SCRUM COACH 11:41 AM AGILE SCRUM COACH Chasity Wild PA-C LAB - URINE ORDERABLES Performing Organization Address City/State/ZIP Code Phon e Number [facility] [address] [place], [place] [id number] [facility] documented in this encounter Visit Diagnoses Diagnosis Preop general physical exam - Primary Other specified pre-operative examinatio n Bunion, left Need for prophylactic vaccination and in oculation against influenza documented in this encounter Additional Health Concerns Assessment Noted Time PHQ-9 Depression Total Score: 15 09/16/2018 1:27 PM CS T documented as of this encounter Care Teams Electronic Engraver Relationship Specialty Start Date End Date Viri Gallardo APRN SUPERVISOR OF WAY PCP - General Nurse Practitioner 06/29/17 04/14/20 [address] [facility] [place] [address] Viri Gallardo APRN SUPERVISOR OF WAY Assigned PCP 09/12/17 09/16/19 [address] [facility] [place] [id number] documented as of this encounter
--- OUTSIDE RECORDS SUMMARY | 2022-09-05 18:55 | XMS_ITS | Encounter Summary ---
:1995 Author Organization [place] Address [address] [place] [address] Care Team Providers Name Role Phone Viri Gallardo APRN, CNP Primary Care Provider [phone] Viri Gallardo APRN, CNP Unavailable [phone] Encounter Details Date Type Department Care Team Description 08/17/2019 Travel Social History Tobacco Use Types Packs/Day [...] documented as of this encounter Care Teams Coffee Roaster Relationship Specialty Start Date End Date Viri Gallardo APRN CNP PCP - General Nurse Practitioner 06/29/17 04/14/20 [address] [facility] [place] [address] Viri Gallardo APRN CNP Assigned PCP 09/12/17 09/16/[address] [place] [address] documented as of this encounter
--- OUTSIDE RECORDS SUMMARY | 2022-09-05 18:55 | XMS_ITS | Encounter Summary ---
:1995 Author Organization [place] Address [address] [place] [address] Care Team Providers Name Role Phone Viri Gallardo APRN, CNP Primary Care Provider [phone] Viri Gallardo APRN, CNP Unavailable [phone] Encounter Details Date Type Department Care Team Description 06/02/2019 Travel Social History Tobacco Use Types Packs/Day [...] documented as of this encounter Care Teams Client Support Professional Relationship Specialty Start Date End Date Viri Gallardo APRN CNP PCP - General Nurse Practitioner 06/29/17 04/14/20 [address] [facility] [place] [address] Viri Gallardo APRN CNP Assigned PCP 09/12/17 09/16/[address] [place] [place] [address] documented as of this encounter
--- OUTSIDE RECORDS SUMMARY | 2022-09-05 18:55 | XMS_ITS | Encounter Summary ---
:1995 Author Organization [place] Address [address] [place] [address] Care Team Providers Name Role Phone Viri Gallardo APRN, CNP Primary Care Provider Viri Gallardo APRN CRAFT DEMONSTRATOR Unavailable [phone] Reason for Visit Reason Comments RECHECK Encounter Details Date Type Department Care Team Description 07/21/2019 Office Visit [facility] Travis Hagan MD Dysuria (Primary Dx); Clinic [address] History of HPV infection; [address] [facility] Bacterial vaginosis [place] [address] [address] [place] [address] (Work) [phone] Social History Tobacco Use Types Packs/Day Years [...] Sign Reading Time Taken Comments Blood Pressure 108/72 07/21/2019 7:57 AM CDT Pulse 66 07/21/2019 7:57 AM CDT Temperature 37 ??C (98.6 ??F) 07/21/2019 7:57 AM CDT Respiratory Rate 16 07/21/2019 7:57 AM CDT Oxygen Saturation 99% 07/21/2019 7:57 AM CDT Inhaled Oxygen Concentration - - Weight 55.3 kg (122 lb) 07/21/2019 7:57 AM CDT Height 160 cm (5' 3) 07/21/2019 7:57 AM CDT Body Mass Index 21.61 07/21/2019 7:57 AM CDT documented in this encounter Progress Notes Travis Hagan MD - 07/21/2019 8:00 AM CDT Subjective Joel Amos is a 24 year old female who presents to clinic today for the following health issues: HPI Persistent dysuria Symptoms have been ongoing for nearly 2 months. Evaluated in clinic in May. Dx w/ BV. Treated with po metronidazole. Sx improved somewhat, but she returned 06/28. Repeat wet prep with many clue cells on the repeat test. Treated with topical metronidazole. Sx again improved somewhat, but did not resolve. Has noted enlarged LN in the had[place]-vaginal area, overall did improve. Now having return of dysuria symptoms. Has a nodule just above the vaginal vault, somewhat painful with pressure. No fevers, chills. No significant vaginal discharge. Reviewed chart, had HPV on pap 2 years ago, normal last year. Is due for pap in September. Reviewed and updated as needed this visit by Provider Tobacco Allergies Meds Problems Med Hx Surg Hx Fam Hx Objective BP 108/72 (BP Location: Right arm, Patient Position: Sitting, Cuff Size: Adult Regular) Pulse 66 Temp 98.6 ??F (37 ??C) (Oral) Resp 16 Ht 1.6 m (5' 3) Wt 55.3 kg (122 lb) SpO2 99% BMI 21.61 kg/m?? Body mass index is 21.61 kg/m??. Physical Exam GEN: no distress ABD: BS+. S, ND. : Normal female external genitalia. Approx 5 mm smooth mobile nodule subcutaneous just proximal tothe vaginal vagina. Normal vaginal vault. Scant white discharge in vault. Results for orders placed or performed in visit on 07/21/19 *UA reflex to Microscopic and Culture ([place] [facility] (except [facility]) Result Value Ref Range Color Urine Yellow Appearance Urine Clear Glucose Urine Negative NEG^Negative mg/dL Bilirubin Urine Negative NEG^Negative Ketones Urine Negative NEG^Negative mg/dL Specific [place] Urine 1.015 1.003 - 1.035 Blood Urine Trace (A) NEG^Negative pH Urine 5.5 5.0 - 7.0 pH Protein Albumin Urine Negative NEG^Negative mg/dL Urobilinogen Urine 0.2 0.2 - 1.0 EU/dL Nitrite Urine Negative NEG^Negative Leukocyte Esterase Urine Negative NEG^Negative Source Midstream Urine Urine Microscopic Result Value Ref Range WBC Urine 0 - 5 OTO5^0 - 5 /HPF RBC Urine O - 2 OTO2^O - 2 /HPF Squamous Epithelial /LPF Urine Moderate (A) FEW^Few /LPF Bacteria Urine Few (A) NEG^Negative /HPF Wet prep Result Value Ref Range Specimen Description Vagina Wet Prep Moderate Clue cells seen (A) Wet Prep No yeast seen Wet Prep No Trichomonas seen Wet Prep No WBC's seen NEISSERIA GONORRHOEA PCR Result Value Ref Range Specimen Descrip Vagina N Gonorrhea PCR Negative NEG^Negative CHLAMYDIA TRACHOMATIS PCR Result Value Ref Range Specimen Description Vagina Chlamydia Trachomatis PCR Negative NEG^Negative Assessment & Plan ICD-10-CM 1. Dysuria R30.0 Wet prep *UA reflex to Microscopic and Culture ([place] [facility] (except [facility]) Urine Microscopic NEISSERIA GONORRHOEA PCR CHLAMYDIA TRACHOMATIS PCR 2. 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 Bacterial vaginosis N76.0 clindamycin (CLEOCIN) 300 MG capsule B96.89 Persistent sx of dysuria with persistent clue cells on wet prep. Discussed possible dx and treatment options. Will change to clindamycin, pt prefers po route. If sx do not improve, plan banking officer referral. Nodule is likely a LN but cannot r/o cyst. Pap done today as well. Travis Hagan MD [facility] documented in this encounter Plan of Treatment Not on filedocumented as of this encounter Procedures Procedure Name Priority Date/Time Associated Comments Diagnosis NEISSERIA GONORRHOEAE Routine 07/21/2019 10:52 Dysuria Re sults for this PCR AM CDT procedure are i n the results section. CHLAMYDIA TRACHOMATIS Routine 07/21/2019 10:52 Dysuria Re sults for this PCR AM CDT procedure are i n the results section. URINE MICROSCOPIC Routine 07/21/2019 8:37 AM Dysuria Resu lts for this CDT procedure are i n the results section. UA MACROSCOPIC WITH Routine 07/21/2019 8:37 AM Dysuria Re sults for this REFLEX TO MICROSCOPIC CDT proced ure are in AND CULTURE the results section. WET PREPARATION Routine 07/21/2019 8:37 AM Dysuria Result s for this CDT procedure are i n the results section. PAP IMAGED THIN Routine 07/21/2019 8:36 AM History of HPV Resu lts for this LAYER, DIAGNOSTIC CDT infection procedure are in the results section. documented in this encounter Results CHLAMYDIA TRACHOMATIS PCR (07/21/2019 10:52 AM CDT) Patholo gist Method Time Signature Specimen Cervix 07/21/2019 [facility] Description 10:53 AM CDT [facility] Chlamydia Negative NEG^Negat 07/23/2019 INFECTIOUS Trachomatis PCR herrera 2:00 PM CDT [facility] Comment: Negative for C. trachomatis rRNA by hernandez scription mediated amplification. A negative result by machine pack assembler media lainey amplification does not preclude the presence of C. trachomatis infection because results are dependent on proper and adequate collection, absence of inhibitors, and sufficient rRNA to be detected. Specimen Anatomical Collection Method Collection Time Receive d Time (Source) Location / / Volume Laterality Specimen from 07/21/2019 10:52 07/21/2019 uterine cervix AM CDT 10:53 AM CDT (specimen) Travis Hagan MD LAB - MICRO GENERAL ORDERABL ES Performing Organization Address City/State/ZIP Code Phon e Number [facility]FECTIOUS [facility] [address] [place] [address] DIAGNOSTIC LABORATORY, [facility] [address] [place] [address] INFECTIOUS DISEASES [address] [place] [address], A [facility] NEISSERIA GONORRHOEA PCR (07/21/2019 10:52 AM CDT) Analysis Performed At Patho logist Time Signature Specimen Cervix 07/21/2019 [facility] Descrip 10:53 AM CDT [facility] N Gonorrhea Negative NEG^Negati 07/23/2019 INFECTIOUS PCR ve 2:00 PM CDT [facility] Comment: Negative for N. gonorrhoeae rRNA by hernandez scription mediated amplification. A negative result by machine pack assembler media lainey amplification does not preclude the presence of N. gonorrhoeae infection because results are dependent on proper and adequate collection, absence of inhibitors, and sufficient rRNA to be detected. Specimen Anatomical Collection Method Collection Time Receive d Time (Source) Location / / Volume Laterality Specimen from 07/21/2019 10:52 07/21/2019 uterine cervix AM CDT 10:53 AM CDT (specimen) Travis Hagan MD LAB - MICRO GENERAL ORDERABL ES Performing Organization Address City/[facility] Phon e Number INFECTIOUS DISEASES [address] [place] [phone] DIAGNOSTIC LABORATORY, [address] [address] [phone] INFECTIOUS DISEASES [address] [place] [address], A DIAGNOSTIC LABORATORY (ABNORMAL) Urine Microscopic (07/21/2019 8:37 AM CDT) [facility] [employer] Method Time Signature WBC Urine 0 - 5 OTO5^0 - 07/21/2019 [facility] 5 /HPF 8:50 AM CDT [facility] RBC Urine O - 2 OTO2^O - 07/21/2019 [facility] 2 /HPF 8:50 AM CDT [facility] Squamous Moderate (A) FEW^Few 07/21/2019 [facility] Epithelial /LPF 8:50 AM CDT [facility] /LPF Urine Bacteria Urine Few (A) NEG^Negat 07/21/2019 [facility] herrera /HPF 8:50 AM CDT [facility] Specimen Anatomical Collection Method Collection Time Receive d Time (Source) Location / / Volume Laterality 07/21/2019 8:37 AM 9 8:38 CDT AM CDT Travis Hagan MD LAB - URINE ORDERABLES Performing Organization Address City/[facility] Phon e Number [address] [address] [phone] (ABNORMAL) *UA reflex to Microscopic and Culture ([facility] [place] [facility] (07/21/2019 8:37 AM CDT) Patholo gist Method Time Signature Color Urine Yellow 07/21/2019 [facility] 8:50 AM CDT [facility] Appearance Urine Clear 07/21/2019 [facility] 8:50 AM CDT [facility] Glucose Urine Negative NEG^Negat 07/21/2019 [facility] herrera mg/dL 8:50 AM CDT [facility] Bilirubin Urine Negative NEG^Negat 07/21/2019 [facility] herrera 8:50 AM CDT [facility] Ketones Urine Negative NEG^Negat 07/21/2019 [facility] herrera mg/dL 8:50 AM CDT [facility] Specific [place] 1.015 1.003 - 07/21/2019 [facility] Urine 1.035 8:50 AM CDT [facility] Blood Urine Trace (A) NEG^Negat 07/21/2019 [facility] herrera 8:50 AM CDT [facility] pH Urine 5.5 5.0 - 7.0 07/21/2019 [facility] pH 8:50 AM CDT [facility] Protein Albumin Negative NEG^Negat 07/21/2019 [facility] Urine herrera mg/dL 8:50 AM CDT [facility] Urobilinogen 0.2 0.2 - 1.0 07/21/2019 [facility] Urine EU/dL 8:50 AM CDT [facility] Nitrite Urine Negative NEG^Negat 07/21/2019 [facility] herrera 8:50 AM CDT [facility] Leukocyte Negative NEG^Negat 07/21/2019 [facility] Esterase Urine herrera 8:50 AM CDT [facility] Source Midstream 07/21/2019 [facility] Urine 8:38 AM CDT [facility] Specimen (Source) Anatomical Collection Method Collection Time Re ceived Time Location / / Volume Laterality Examination of 07/21/2019 8:37 07/21/2019 8:38 midstream urine AM CDT AM CDT specimen (procedure) Travis Hagan MD LAB - URINE ORDERABLES Performing Organization Address City/State/ZIP Code Phon e Number [facility] [address] [place] [address] (ABNORMAL) Wet prep (07/21/2019 8:37 AM CDT) [facility] gist Method Time Signature Specimen Vagina [facility] Description [facility] Wet Prep Moderate 07/21/2019 [facility] Clue cells seen 8:40 AM CDT CLINICS (A) [facility] Wet Prep No yeast seen 07/21/2019 [facility] 8:40 AM CDT [facility] Wet Prep No Trichomonas 07/21/2019 [facility] seen 8:40 AM CDT [facility] Wet Prep No WBC's seen 07/21/2019 [facility] 8:40 AM CDT [facility] Specimen Anatomical Collection Method Collection Time Receive d Time (Source) Location / / Volume Laterality Specimen from 07/21/2019 8:37 AM 07/21/20 19 8:38 vagina CDT AM CDT (specimen) Travis Hagan MD LAB - MICRO GENERAL ORDERABL ES Performing Organization Address City/State/ZIP Code Phon e Number [facility] [address] [place] [address] Pap imaged thin layer diagnostic only (07/21/2019 8:36 AM CDT) Component Value Ref Test Analysis Performed At [facility] gist Range Method Time Signature PAP NIL COPATH Copath Report COPATH Patient Name: JOEL AMOS MR#: [id number] Specimen #: [id number] Collected: 07/21/2019 Received: 07/24/2019 Reported: 07/26/2019 14:33 Ordering Phy(s): TRAVIS HAGAN For improved result formatting, select 'View Enhanced Report Format' under Linked Documents section. SPECIMEN/STAIN PROCESS: Pap Imaged thin layer prep diagnostic (SurePath, FocalPoint with guided screening) ? Pap-Cyto x 1 SOURCE: Cervical, endocervical ---- Pap Imaged thin layer prep diagnostic (SurePath, FocalPoint with guided screening) SPECIMEN ADEQUACY: Satisfactory for evaluation. -Transformation zone component absent. CYTOLOGIC INTERPRETATION: Negative for intraepithelial lesion or malignancy Electronically signed out by: ANGIE Sniha (ASCP) CLINICAL HISTORY: Intra-Uterine Device, A previous normal pap Date of Last Pap: 09/16/18, History of positive HPV, Papanicolaou Test Limitations: ??Cervical cytology is a sc reening test with limited sensitivity; regular screening is critical for cancer prevention; Pap tests are p rimarily effective for the diagnosis/prevention of squamous cell carcinoma, not adenocarcinomas or other cancer s. COLLECTION SITE: Client: ??[facility] Location: [facility] (R) The technical component of this testing was completed at the General acute hospital, with the professional compo nent performed at the General acute hospital, [address] [facility], [place] [address] ([phone]) Specimen (Source) Anatomical Collection Method Collection Time Re ceived Time Location / / Volume Laterality Cytologic 07/21/2019 8:36 07/24/2019 7 :00 material AM CDT AM CDT (specimen) Travis Hagan MD LAB - OPTIME CLINICAL SPECIM EN Performing Organization Address City/State/ZIP Code Phon e Number [place] documented in this encounter Visit Diagnoses Diagnosis Dysuria - Primary History of HPV infection Personal history of other infectious and parasitic disease Bacterial vaginosis Vaginitis and vulvovaginitis, unspecifie d documented in this encounter Additional Health Concerns Assessment Noted Time PHQ-9 Depression Total Score: 15 09/16/2018 1:27 PM CS T documented as of this encounter Care Teams Manager Acquisition Relationship Specialty Start Date End Date Viri Gallardo APRN CRAFT DEMONSTRATOR PCP - General Nurse Practitioner 06/29/17 04/14/[address] [place] [address] [place] [id number] Viri Gallardo APRN CRAFT DEMONSTRATOR Assigned PCP 09/12/17 09/16/[address] [place] [address] [place] [id number] documented as of this encounter
--- OUTSIDE RECORDS SUMMARY | 2022-09-05 18:55 | XMS_ITS | Encounter Summary ---
:1995 Author Organization [place] Address [address] [place] [address] Care Team Providers Name Role Phone Viri Gallardo APRN, CNP Primary Care Provider [phone] Viri Gallardo APRN, CNP Unavailable [phone] Encounter Details Date Type Department Care Team Description 06/03/2019 Travel Social History Tobacco Use Types Packs/Day [...] documented as of this encounter Care Teams Quartz Orientator Relationship Specialty Start Date End Date Viri Gallardo APRN CNP PCP - General Nurse Practitioner 06/29/17 04/14/20 [address] [facility] [place] [address] Viri Gallardo APRN CNP Assigned PCP 09/12/17 09/16/[address] [place] [address] documented as of this encounter
--- OUTSIDE RECORDS SUMMARY | 2022-09-05 18:55 | XMS_ITS | Encounter Summary ---
:1995 Author Organization [place] Address [address] [place] [address] Care Team Providers Name Role Phone Viri Gallardo APRN, CNP Primary Care Provider [phone] Chasity Wild PA-C Unavailable [phone] Encounter Details Date Type Department Care Team Description 12/14/2019 Travel Social History Tobacco Use Types Packs/Day [...] documented as of this encounter Care Teams Open Claims Representative Relationship Specialty Start Date End Date Viri Gallardo APRN CNP PCP - General Nurse Practitioner 06/29/17 04/14/20 [address] [facility] [place] [address] Chasity Wild PA-C Assigned PCP 09/17/19 08/17/[address] [facility] [address] [place], [place] [id number] documented as of this encounter
--- OUTSIDE RECORDS SUMMARY | 2022-09-05 18:55 | XMS_ITS | Encounter Summary ---
:1995 Author Organization [place] Address [address] [place] [address] Care Team Providers Name Role Phone Viri Gallardo APRN, CNP Primary Care Provider [phone] Viri Gallardo APRN, CNP Unavailable [phone] Encounter Details Date Type Department Care Team Description 05/25/2019 Travel Social History Tobacco Use Types Packs/Day [...] documented as of this encounter Care Teams Customer Greeter Relationship Specialty Start Date End Date Viri Gallardo APRN CNP PCP - General Nurse Practitioner 06/29/17 04/14/20 [address] [facility] [place] [address] Viri Gallardo APRN CNP Assigned PCP 09/12/17 09/16/19 [address] [facility] [place] [address] documented as of this encounter
--- OUTSIDE RECORDS SUMMARY | 2022-09-05 18:55 | XMS_ITS | Encounter Summary ---
:1995 Author Organization [facility] Address [address] [place] [address] Care Team Providers Name Role Phone Viri Gallardo APRN, CNP Primary Care Provider [phone] Viri Gallardo APRN TOUR BUS DRIVER/GUIDE Unavailable [phone] Reason for Visit Reason Comments Eye Pain pt c/o eye pain since this a m, swelling. Sent from clinic Encounter Details Date Type Department Care Team Description 01/27/2019 Emergency [facility] Rajat Lopez A nisocoria; [facility] Emergency Afferent pupillary defect of left eye Dept [facility] [address] [place] [address] [place] [address] [place] [address] [place], [place] [address] (Wo rk) Social History Tobacco Use Types [...] Sign Reading Time Taken Comments Blood Pressure 125/71 01/27/2019 10:25 AM CDT Pulse 87 01/27/2019 10:25 AM CDT Temperature 36.9 ??C (98.4 ??F) 01/27/2019 10:25 AM CDT Respiratory Rate 15 01/27/2019 10:25 AM CDT Oxygen Saturation 100% 01/27/2019 10:25 AM CDT Inhaled Oxygen Concentration - - Weight - - Height - - Body Mass Index - - documented in this encounter Discharge Instructions Discharge InstructionsRajat Lopez MD - 01/27/2019 1:32 PM CDT Return the emergency department if you have worsening vision in your eye or eye pain that worsens. You must see Dr. Maher tomorrow for a comprehensive eye exam. documented in this encounter Medications at Time of Discharge Medication Sig Dispensed Refills Start Date End Date albuterol (PROAIR Inhale 2 puffs into 1 Inhaler 0 8 01/28/2019 HFA/PROVENTIL the lungs every 6 HFA/VENTOLIN HFA) 108 hours as needed for (90 Base) MCG/ACT shortness of breath / inhaler dyspnea or wheezing albuterol (PROVENTIL) Take 1 vial (2.5 mg) 25 vial 0 04/201801/28/2019 (2.5 MG/3ML) 0.083% by nebulization every neb solution 6 hours as needed for shortness of breath / dyspnea or wheezing ARIPiprazole (ABILIFY) 0 12/06/2018 5 MG tablet etonogestrel-ethinyl Place 1 each 0 estradiol (NUVARING) vaginally every 28 0.12-0.015 MG/24HR days vaginal ring fluticasone (FLOVENT Inhale 1 puff into 120 Inhaler 0 201701/28/2019 DISKUS) 50 MCG/BLIST the lungs every 12 AEPBIndications: Cough hours ibuprofen Take 2 tablets (400 60 tablet 0 07/08/201808/17 (ADVIL/MOTRIN) 200 MG mg) by mouth every 6 tablet hours as needed for pain SUMAtriptan (IMITREX) Take 1 tablet (100 18 tablet 3 201708/17/2019 100 MG mg) by mouth at onset tabletIndications: of headache for Intractable chronic migraine May repeat migraine without aura in 2 hours. Max 2 and without status tablets/24 hours. migrainosus documented as of this encounter ED Notes Tom Xavier RN - 01/27/2019 11:55 AM CDT MRI form completed and faxed to MRI. Patient changed and ready for scan Ermelinda Stinson RN - 01/27/2019 10:26 AM CDT Bed: ED20 Expected date: 01/27/19 Expected time: 10:22 AM Means of arrival: Comments: triage Rajat Lopez MD - 01/27/2019 10:22 AM CDT History Chief Complaint: Eye Pain HPI Joel Amos is a 23 year old female who presents to the emergency department today for evaluation of eye pain. Patient states she started having left eye pain and itchiness. When she looked in themirror, she noticed dilation of her left eye with slight blurriness. She endorses going to the clinic and after calling an high density finishing operator, they recommended coming to ED for further evaluation. The patientreports she started new medication, Abilify two months ago and there has also been several dose changes. She endorses a migraine last night and when she was massaging her neck, she states it felt like her neck was crunching. Her migraines are frequent, but states she doesn't typically have spotty vision with migraines. Patient does not wear contacts or glasses. She denies nausea, vomiting, injury, harsh chemicals, or any new drops. Allergies: No Known Drug Allergies Medications: Albuterol Abilify Nuvaring Fluticasone Imitrex Past Medical History: Anxiety Bipolar 1 disorder Depression Migraines Past Surgical History: Surgical history reviewed. No pertinent surgical history. Family History: Mother: hypertension Social History: The patient was accompanied to the ED by nubia. Smoking Status: Former smoker Smokeless Tobacco: Never Used Alcohol Use: Positive Drug Use: Positive marijuana PCP: Viri Gallardo Marital Status: Single Review of Systems Eyes: Positive for pain (left), itching (left) and visual disturbance (left). Gastrointestinal: Negative for nausea and vomiting. All other systems reviewed and are negative. Physical Exam Patient Vitals for the past 24 hrs: BP Temp Temp src Pulse Resp SpO2 01/27/19 1025 125/71 98.4 ??F (36.9 ??C) Oral 87 15 100 % Physical Exam Constitutional: Alert, attentive, GCS 15 HENT: Nose: Nose normal. Mouth/Throat: Oropharynx is clear, mucous membranes are moist. Eyes: EOM full. Dilated left pupil with 2+ APD. Accommodates but does not react No cells in flare in slit lamp exam. No synechia. Visual acuity: R 20/20, L 20/25. IOP's 20 bilaterally. No ptosis. CV: regular rate and rhythm; no murmurs Chest: Effort normal and breath sounds clear without wheezing or rales, symmetric bilaterally GI: non tender. No distension. No guarding or rebound. MSK: No LE edema, no tenderness to palpation of BLE. Neurological: Alert, attentive, moving all extremities equally. Skin: Skin is warm and dry. Emergency Department Course Imaging: Radiology findings were communicated with the patient who voiced understanding of the findings. MR Brain w/o & w Contrast Unremarkable MRI of the head with and without contrast. No MRI evidence of optic neuritis or myelinating disease. ANNIE GALLOWAY MD Reading per radiology Emergency Department Course: 1026 Nursing notes and vitals reviewed. 1035 I performed an exam of the patient as documented above. [address] Maher of the Maintenance And Custodian Supervisor service regarding patient's presentation, findings, and plan of care. 1220 The patient was sent for a MR brain while in the emergency department, results above. [address] Maher of the Maintenance And Custodian Supervisor service regarding patient's presentation, findings, and plan of care. 1342 I personally reviewed the image results with the patient and answered all related questions prior to discharge. Impression & Plan Medical Decision Making: Joel Amos is a 23 year old female with past medical history significant for bipolar disorder decreasing doses of Abilify who presents from clinic for evaluation of anisocoria. On exam, she was found to have a dilated left pupil with no report of trauma and absent headache mild discomfort with extraocular movements. She denies any recent exposure to denies any topical medications or other medications that could have gotten in her eye. She is a contact lens wearer. No evidence of intraocular pressure, no evidence of ocular trauma and no symptoms of increased intracranial pressure including nausea or vomiting. Patient has decreased light perception on the left with funduscopic exam showing no evidence of papilledema but is enlarged somewhat. Immediate concern after about my exam was for possible optic neuritis, I did discuss the presentation with Dr. Maher, on-call head greenskeeper who agreedwith plan for contrasted MRI to assess her optic nerve inflammation, this was fortunately negative. Syphilis seems less likely. Given her visual acuity is nearly symmetric at 20/20 versus 20/25 in the affected eye and no infectious symptoms, patient is felt safe for discharge home with plan for close follow-up with ophthalmology clinic tomorrow. Dr. Mullen agreed to see her at 8 AM at the [facility]. Return precautions were reviewed including increasing eye pain or vision loss. Patient expressed plan and was discharged home. Diagnosis: ICD-10-CM 1. Anisocoria H57.02 2. 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 Discharge Medications: No discharge medications Rajat Lopez MD [facility] [employer] 8:03 PM 01/27/19 Scribe Disclosure: Naya Lincoln, am serving as a scribe at 10:39 AM on 01/27/2019 to document services personally performed by Rajat Lopez MD based on my observations and the provider's statements to me. EMERGENCY DEPARTMENT Rajat Lopez MD 01/27/192003 documented in this encounter Plan of Treatment Not on filedocumented as of this encounter Procedures Procedure Name Priority Date/Time Associated Diagnosis Comme nts MR BRAIN W/O & W STAT 01/27/2019 1:04 PM Resul ts for this CONTRAST CDT procedure are i n the results section. documented in this encounter Results MR Brain w/o & w Contrast (01/27/2019 1:04 PM CDT) Anatomical Region Laterality Modality Head, SUBRAD MR NEURO, UMP MR NEURO, RAD MR Magnetic Resonance Specimen (Source) Anatomical Location Collection Method / Collectio n Time Received Time / Laterality Volume Impressions 01/27/2019 1:17 PM CDT IMPRESSION: ??Unremarkable MRI of the head with and without contrast. No MRI evidence of optic neuritis or mye linating disease. ANNIE GALLOWAY MD Narrative 01/27/2019 1:17 PM CDT MRI BRAIN WITHOUT AND WITH CONTRAST ??01/27/2019 1:04 PM HISTORY: ??Possible left eye optic neuri tis. TECHNIQUE: ??Multiplanar, multisequence MRI of the brain without and with 6 mL Gadavist. COMPARISON: MRI 09/15/2017 FINDINGS: ??The cerebral hemispheres, br ainstem, and cerebellum demonstrate normal morphology and signal . No evidence of ischemia, hemorrhage, mass, mass effect, or hydroc ephalus. The optic nerves, optic chiasm, and optic tracts are unrem arkable. No abnormal enhancement or diffusion restriction. Ma cosme intracranial flow voids are maintained. The visualized calvarium , skull base, paranasal sinuses, and extracranial soft tissues a re unremarkable. There is mild palatine tonsillar enlargement, likely r eactive. Procedure Note Annie Galloway MD - 01/27/2019F ormatting of this note might be different from the original. MRI BRAIN WITHOUT AND WITH CONTRAST 01/27 1:04 PM HISTORY: Possible left eye optic neuriti s. TECHNIQUE: Multiplanar, multisequence MR I of the brain without and with 6 mL Gadavist. COMPARISON: MRI 09/15/2017 FINDINGS: The cerebral hemispheres, brai nstem, and cerebellum demonstrate normal morphology and signal . No evidence of ischemia, hemorrhage, mass, mass effect, or hydroc ephalus. The optic nerves, optic chiasm, and optic tracts are unrem arkable. No abnormal enhancement or diffusion restriction. Ma cosme intracranial flow voids are maintained. The visualized calvarium , skull base, paranasal sinuses, and extracranial soft tissues a re unremarkable. There is mild palatine tonsillar enlargement, likely r eactive. IMPRESSION: Unremarkable MRI of the head with and without contrast. No MRI evidence of optic neuritis or mye linating disease. ANNIE GALLOWAY MD Rajat Lopez MD G MRI ORDERABLES documented in this encounter Visit Diagnoses Diagnosis Anisocoria Afferent pupillary defect of left eye documented in this encounter Administered Medications Inactive Administered Medications - up to 3 most recent administrations Medication Order MAR Action Action Date Dose Rate Site gadobutrol (GADAVIST) injection 6 Given 01/27/2019 12:13 PM CDT 6 mLs mL 6 mL, Intravenous, ONCE, On Wed01/27/19 at 1213, For 1 dose sodium chloride (PF) 0.9% PF flush 10 mL Given 01/27/2019 12:13 PM CDT 10 mLs 10 mL, Intravenous, ONCE, On Wed01/27/19 at 1213, For 1 dose documented in this encounter Active and Recently Administered Medications Times are shown in CDT. Scheduled Medication Order 01/25/2019 01/26/2019 01/27/2019 gadobutrol (GADAVIST) injection 6 mL (COMPLETED) 1213 (Given - Provider: Jamia Salvador) 6 mL, Intravenous, ONCE, Wed01/27/19 at 1213, For 1 dose sodium chloride (PF) 0.9% PF flush 10 mL (COMPLETED) 1213 (Given - Provider: Jamia Salvador) 10 mL, Intravenous, ONCE, Wed01/27/19 at 1213, For 1 dose documented in this encounter Additional Health Concerns Assessment Noted Time PHQ-9 Depression Total Score: 15 09/16/2018 1:27 PM CS T documented as of this encounter Care Teams Adult Basic Education Teacher Relationship Specialty Start Date End Date Viri Gallardo APRN TOUR BUS DRIVER/GUIDE PCP - General Nurse Practitioner 06/29/17 04/14/[address] [place] [address] [place] [address] Viri Gallardo APRN TOUR BUS DRIVER/GUIDE Assigned PCP 09/12/17 09/16/[address] [place] [address] [place] [id number] documented as of this encounter
--- OUTSIDE RECORDS SUMMARY | 2022-09-05 18:55 | XMS_ITS | Encounter Summary ---
:1995 Author Organization [place] Address [address] [facility] [place] [address] Care Team Providers Name Role Phone No Ref-Primary, Physician Primary Care Provider [phone] Viri Gallardo APRN SUPERVISOR PURIFICATION Unavailable [phone] Chasity Wild PA-C Unavailable [phone] Encounter Details Date Type Department Care Team Description 04/15/2020 Medical Correspondence [facility] Scan, Emergency Department Non-Provider [address] [place] [address] Social History Tobacco Use Types Packs/Day Years Used Date Smoking Tobacco: Every Day Cigarettes 1 Vaping Device Smokeless Tobacco: Never Alcohol Use Standard Drinks/Week Comments Yes 0 (1 standard drink = 0.6 oz pure Pt sta brittnee she drinks 1 bottle of alcohol) wine a day Alcohol Habits Answer Date Recorded How often [...] been in contact with No / Unsure 04/15/2020 8:01 PM CDT someone who was confirmed or suspected to have Coronavirus / COVID-19? documented as of this encounter Plan of Treatment Not on filedocumented as of this encounter Visit Diagnoses Not on filedocumented in this encounter Additional Health Concerns Assessment Noted Time PHQ-9 Depression Total Score: 15 09/16/2018 1:27 PM CS T documented as of this encounter Care Teams Miniature Set Constructor Relationship Specialty Start Date End Date No Ref-Primary, Physician PCP - General 04/15/20 Viri Gallardo APRN SUPERVISOR PURIFICATION Nurse Practitioner 04/15/20 [address] [facility] [place] [address] Chasity Wild PA-C Assigned PCP 09/17/19 08/17/[address] [place] [address] [place] [id number] documented as of this encounter
--- OUTSIDE RECORDS SUMMARY | 2022-09-05 18:55 | XMS_ITS | Encounter Summary ---
:1995 Author Organization [place] Address [address] [place] [address] Care Team Providers Name Role Phone Viri Gallardo APRN, CNP Primary Care Provider [phone] Viri Gallardo APRN CAFE HELPER Unavailable [phone] Reason for Visit Reason Comments Urgent Care Pharyngitis ST and headaches x 3 days alie freedmanpastora has strep Encounter Details Date Type Department Care Team Description 06/02/2019 Office Visit [facility] Alena Mcgee hroat (Primary Urgent Care Jesu Ashley PA-C Dx) [address] [place] [address] [address] [place] [address] [place] [phone] Social History Tobacco Use Types Packs/Day Years [...] Sign Reading Time Taken Comments Blood Pressure 118/68 06/02/2019 1:38 PM CDT Pulse 101 06/02/2019 1:38 PM CDT Temperature 36.9 ??C (98.5 ??F) 06/02/2019 1:38 PM CDT Respiratory Rate - - Oxygen Saturation 96% 06/02/2019 1:38 PM CDT Inhaled Oxygen Concentration - - Weight 56.2 kg (124 lb) 06/02/2019 1:38 PM CDT Height - - Body Mass Index 21.97 05/25/2019 10:48 AM CDT documented in this encounter Progress Notes Alena Mcgee PA-C - 06/02/2019 1:25 PM CDT SUBJECTIVE: Joel Amos is a 24 year old female with a chief complaint of sore throat. Onset of symptoms was 2 day(s) ago. Course of illness: gradual onset. Severity moderate Current and Associated symptoms: feeling flushed Treatment measures tried include Tylenol/Ibuprofen. Predisposing factors include daughter with strep throat. Past Medical History: Diagnosis Date ??? Anxiety [...] +HR HPV, not 16/18, 22 yr old Current Outpatient Medications Medication Sig Dispense Refill ??? SUMAtriptan (IMITREX) 100 MG tablet Take 1 tablet (100 mg) by mouth at onset of headache for migraine May repeat in 2 hours. Max 2 tablets/24 hours. 18 tablet 3 ??? ibuprofen (ADVIL/MOTRIN) 200 MG tablet Take 2 tablets (400 mg) by mouth every 6 hours as needed for pain (Patient not taking: Reported on 06/02/2019) 60 tablet 0 Social History Tobacco Use ??? Smoking status: Former Smoker Packs/day: 0.25 ??? Smokeless tobacco: Never Used ??? Tobacco comment: vape Substance Use Topics ??? Alcohol use: Yes Alcohol/week: 0.0 oz Comment: states I don't even know re how many a week ROS: Review of systems negative except as stated above. OBJECTIVE: BP 118/68 (Cuff Size: Adult Regular) Pulse 101 Temp 98.5 ??F (36.9 ??C) (Oral) Wt 56.2 kg (124lb) SpO2 96% BMI 21.97 kg/m?? GENERAL APPEARANCE: healthy, alert and no distress EYES: EOMI, PERRL, conjunctiva clear HENT: ear canals and TM's normal. Nose normal. Pharynx erythematous. NO trismus or drooling. NECK: supple, non-tender to palpation, no adenopathy noted RESP: lungs clear to auscultation - no rales, rhonchi or wheezes CV: regular rates and rhythm, normal S1 S2, no murmur noted SKIN: no suspicious lesions or rashes Results for orders placed or performed in visit on 06/02/19 Rapid strep screen Result Value Ref Range Specimen Description Throat Rapid Strep A Screen NEGATIVE: No Group A streptococcal antigen detected by immunoassay, await culture report. ASSESSMENT / PLAN: 1. Sore throat - Rapid strep screen - Beta strep group A culture Symptomatic treat with gargles, lozenges, and OTC analgesic as needed. Follow-up with primary clinicif not improving. Will call if culture positive. Diagnosis and treatment plan was reviewed with patient and/or family. We went over any labs or imaging. Discussed worsening symptoms or little to no relief despite treatment plan to follow-up with PCP or return to clinic. Patient verbalizes understanding. All questions were addressed and answered. Alena Mcgee PA-C documented in this encounter Plan of Treatment Not on filedocumented as of this encounter Procedures Procedure Name Priority Date/Time Associated Diagnosis Comme nts RAPID STREP SCREEN Routine 06/02/2019 1:41 PM Sore throat Res ults for this THROAT SWAB CDT procedure are i n the results section. BETA HEMOLYTIC Routine 06/02/2019 1:41 PM Sore throat Results for this STREP GROUP A CDT procedure are in CULTURE the results section. documented in this encounter Results Beta strep group A culture (06/02/2019 1:41 PM CDT) Component Value Ref Test Analysis Performed At [facility] gist Range Method Time Signature Specimen Throat [facility] Description [facility]INICS [facility] Culture Micro No beta 06/03/2019 [facility] hemolytic 12:41 PM CLINICS Streptococcus CDT [facility] Group A isolated Specimen Anatomical Collection Method Collection Time Receive d Time (Source) Location / / Volume Laterality Specimen from 06/02/2019 1:41 PM 06/02/20 19 2:04 throat CDT PM CDT (specimen) Alena Ashley Everardo [facility] - MICRO GENERAL ORDERABL ES Performing Organization Address City/[facility]/ZIP Code Phon e Number [facility]ESU [address] [facility] [place] [phone] Rapid strep screen (06/02/2019 1:41 PM CDT) Component Value Ref Test Analysis Performed At [facility] Range Method Time Signature Specimen Throat [facility] Rapid Strep A NEGATIVE: No 06/02/2019 [facility] Screen Group A 2:01 PM CDT CLINICS streptococcal [facility] antigen detected by immunoassay, await culture report. Specimen Anatomical Collection Method Collection Time Receive d Time (Source) Location / / Volume Laterality Specimen from 06/02/2019 1:41 PM 06/02/20 19 1:43 throat CDT PM CDT (specimen) Alena Brioenschantell [facility] - MICRO GENERAL ORDERABL ES Performing Organization Address City/[facility]/ZIP Code Phon e Number [facility] [address] [facility] [place] [phone] documented in this encounter Visit Diagnoses Diagnosis Sore throat - Primary Acute pharyngitis documented in this encounter Additional Health Concerns Assessment Noted Time PHQ-9 Depression Total Score: 15 09/16/2018 1:27 PM CS T documented as of this encounter Care Teams Insole Toe Snipping Machine Operator Relationship Specialty Start Date End Date Viri Gallardo APRN CAFE HELPER PCP - General Nurse Practitioner 06/29/17 04/14/20 [address] [facility] [place] [address] Viri Gallardo APRN CAFE HELPER Assigned PCP 09/12/17 09/16/19 [address] [facility] [place] [address] documented as of this encounter
--- OUTSIDE RECORDS SUMMARY | 2022-09-05 18:55 | XMS_ITS | Encounter Summary ---
:1995 Author Organization [place] Address [address] [place] [address] Care Team Providers Name Role Phone Viri Gallardo APRN, CNP Primary Care Provider [phone] Chasity Wild PA-C Unavailable [phone] Encounter Details Date Type Department Care Team Description 02/05/2020 Travel Social History Tobacco Use Types Packs/Day [...] been in contact with No / Unsure 02/05/2020 11:25 AM CDT someone who was confirmed or suspected to have Coronavirus / COVID-19? documented as of this encounter Plan of Treatment Not on filedocumented as of this encounter Visit Diagnoses Not on filedocumented in this encounter Additional Health Concerns Assessment Noted Time PHQ-9 Depression Total Score: 15 09/16/2018 1:27 PM CS T documented as of this encounter Care Teams Tube Machine Operator Relationship Specialty Start Date End Date Viri Gallardo APRN CNP PCP - General Nurse Practitioner 06/29/17 04/14/20 [address] [facility] [place] [address] Chasity Wild PA-C Assigned PCP 09/17/19 08/17/20 [address] [facility] [place] [id number] documented as of this encounter
--- OUTSIDE RECORDS SUMMARY | 2022-09-05 18:55 | XMS_ITS | Encounter Summary ---
:1995 Author Organization [place] Address [address] [place] [address] Care Team Providers Name Role Phone Viri Gallardo APRN, CNP Primary Care Provider [phone] Viri Gallardo APRN, CNP Unavailable [phone] Encounter Details Date Type Department Care Team Description 01/27/2019 Travel Social History Tobacco Use Types Packs/Day [...] documented as of this encounter Care Teams Cad Designer Relationship Specialty Start Date End Date Viri Gallardo APRN CNP PCP - General Nurse Practitioner 06/29/17 04/14/20 [address] [facility] [place] [address] Viri Gallardo APRN CNP Assigned PCP 09/12/17 09/16/19 [address] [facility] [place] [address] documented as of this encounter
--- OUTSIDE RECORDS SUMMARY | 2022-09-05 18:55 | XMS_ITS | Encounter Summary ---
:1995 Author Organization [facility] Address [address] [place] [address] Care Team Providers Name Role Phone Viri Gallardo APRN, CNP Primary Care Provider [phone] Chasity Wild PA-C Unavailable [phone] Reason for Referral Diagnostic Imaging XR (Routine) - Closed Specialty Diagnoses / Procedures Referred By Contact Refer red To Contact Diagnoses Cough Josse Hassan, Procedures XR Chest 2 Views JAGDISH [address] [facility] [place] [address] Referral ID Status Reason Start Date Expiration Date Visits Requ ested Visits Authorized [id number] Closed 12/14/2019 12/13/2020 1 1 [employer] Reason for Visit Reason Comments Urgent Care Pharyngitis sore throat/chills/body ache s Encounter Details Date Type Department Care Team Description 12/14/[address] [facility] Josse Hassan Cough (P rimary Dx); Urgent Care Jesu Urbano PA-C Sore throat; [address] [facility] N[place] ine vapor product user; [facility] [place], [place] Acute dysfunction of Eustachian tube, le ft; [address] [place] [address] [employer] [place] [phone] Social History Tobacco Use Types Packs/Day Years [...] Sign Reading Time Taken Comments Blood Pressure 112/65 12/14/2019 9:00 AM [employer] Pulse 78 12/14/2019 9:00 AM [employer] Temperature 36.8 ??C (98.2 ??F) 12/14/2019 9:00 AM [employer] Respiratory Rate 20 12/14/2019 9:00 AM [employer] Oxygen Saturation 98% 12/14/2019 9:00 AM [employer] Inhaled Oxygen Concentration - - Weight 51.7 kg (114 lb) 12/14/2019 9:00 AM [employer] Height - - Body Mass Index 20.19 07/21/2019 7:57 AM CDT documented in this encounter Patient Instructions Patient InstructionsJosse Hassan PA-C - 12/14/2019 9:00 AM [employer] Images from the original note were not included. With distilled water 2-3x per day for a minimum 2-3 days Plenty of fluids, rest, warm compresses on face Mucinex, increased fluids, humidifier at night, steaming in the day Cough drops and hot saltwater gargles as needed Adult Self-Care for Colds Colds are caused by viruses. They can't be cured with antibiotics. However, you can ease symptoms and support your body's efforts to heal itself. No matter which symptoms you have, be sure to: ?? Drink plenty of fluids (water or clear soup) ?? Stop smoking and drinking alcohol ?? Get plenty of rest Understand a fever ?? Take your temperature several times a day. If your fever is??100.4??F??(38.0??C) for more than a day, call your healthcare provider. ?? Relax, lie down. Go to bed if you want. Just get off your feet and rest. Also, drink plenty of fluids to avoid dehydration. ?? Take acetaminophen or a nonsteroidal anti-inflammatory agent (NSAID), such as ibuprofen. Treat a troubled nose kindly ?? Breathe steam or heated humidified air to open blocked nasal passages. cloth finishing range operator a hot shower or use a vaporizer. Be careful not to get burned by the steam. ?? Saline nasal sprays and decongestant tablets help open a stuffy nose. Antihistamines can also help, but they can cause side effects such as drowsiness and drying of the eyes, nose, and mouth. Soothe a sore throat and cough ?? Gargle every??2??hours with??1/4??teaspoon of salt dissolved in??1/2 cup of warm water. Suck on throat lozenges and cough drops to moisten your throat. ?? Cough medicines are available but it is unclear how well they actually work. ?? Take acetaminophen or an NSAID, such as ibuprofen, to ease throat pain Ease digestive problems ?? Put fluids back into your body. Take frequent sips of clear liquids such as water or broth. Avoiddrinks that have a lot of sugar in them, such as juices and sodas. These can make diarrhea worse. Older children and adults can drink sports drinks. ?? As your appetite returns, you can resume your normal diet. Ask your healthcare provider if there are any foods you should avoid. When to seek medical care When you first notice symptoms, ask your healthcare provider if antiviral medicines are appropriate.??Antibiotics should not be taken for colds or flu. Also, call your healthcare provider if you have any of the following symptoms or if you aren't feeling better after 7 days: ?? Shortness of breath ?? Pain or pressure in the chest or belly (abdomen) ?? Worsening symptoms, especially after a period of improvement ?? Fever of??100.4??F?? (38.0??C) or higher, or fever that doesn't go down with medicine ?? Sudden dizziness or confusion ?? Severe or continued vomiting ?? Signs of dehydration, including extreme thirst, dark urine, infrequent urination, dry mouth ?? Spotted, red, or very sore throat Date Last Reviewed: 09/10/2016 ?? [id number] [employer]. [address] [place] [address], [place] [address]. All rights reserved. This information is not intended as a substitute for professional medical care. Always follow your healthcare professional's instructions. Patient Education Earache, No Infection (Adult) Earaches can happen without an infection. This occurs when air and fluid build up behind the eardrumcausing a feeling of fullness and discomfort and reduced hearing. This is called otitis media with effusion (OME) or serous otitis media. It means there is fluid in the middle ear. It is not the same as acute otitis media, which is typically from infection. OME can happen when you have a cold if congestion blocks the passage that drains the middle ear. This passage is called the eustachian tube. OME may also occur with nasal allergies or after a bacterialmiddle ear infection. The pain or discomfort may come and go. You may hear clicking or popping sounds when you chew or swallow. You may feel that your balance is off. Or you may hear ringing in the ear. It often takes from several weeks up to 3 months for the fluid to clear on its own. Oral pain relievers and ear drops help if there is pain. Decongestants and antihistamines sometimes help. Antibioticsdon't help since there is no infection. Your doctor may prescribe a nasal spray to help reduce swelling in the nose and eustachian tube. This can allow the ear to drain. If your OME doesn't improve after 3 months, surgery may be used to drain the fluid and insert a small tube in the eardrum to allow continued drainage. Because the middle ear fluid can become infected, it is important to watch for signs of an ear infection which may develop later. These signs include increased ear pain, fever, or drainage from the ear. Home care The following guidelines will help you care for yourself at home: ?? You may use uisf-pxy-iikmiqm medicine as directed to control pain, unless another medicine was prescribed. If you have chronic liver or kidney disease or ever had a stomach ulcer or GI bleeding, talk with your doctor before using these medicines. Aspirin should never be used in anyone under 18 years of age who is ill with a fever. It may cause severe liver damage. ?? You may use aflb-uun-eqnvqcb decongestants such as phenylephrine or pseudoephedrine. But they arenot always helpful. Don't use nasal spray decongestants more than 3 days. Longer use can make congestion worse. Prescription nasal sprays from your doctor don't typically have those restrictions. ?? Antihistamines may help if you are also having allergy symptoms. ?? You may use medicines such as guaifenesin to thin mucus and promote drainage. Follow-up care Follow up with your healthcare provider or as advised if you are not feeling better after 3 days. When to seek medical advice Call your healthcare provider right away if any of the following occur: ?? Your ear pain gets worse or does not start to improve? Fever of 100.4??F (38??C) or higher, or as directed by your healthcare provider ?? Fluid or blood draining from the ear ?? Headache or sinus pain ?? Stiff neck ?? Unusual drowsiness or confusion Date Last Reviewed: 07/11/2016 ?? [id number] [employer]. [address] [place] [address]. All rights reserved. This information is not intended as a substitute for professional medical care. Always follow your healthcare professional's instructions. [employer] documented in this encounter Progress Notes Josse Hassan PA-C - 12/14/2019 9:00 AM CST Images from the original note were not included. SUBJECTIVE: Joel Amos is a 24 year old female who presents to the clinic today with a chief complaint of cough for 1 week(s). Her cough is described as productive of yellow sputum. The patient's symptoms are moderate and stable. Associated symptoms include nasal congestion, rhinorrhea, sore throat and wheezing. The patient's symptoms are exacerbated by lying down Patient has been using OTC cough suppressants to improve symptoms. Past Medical History: Diagnosis Date ??? Anxiety [...] HPV, not 16/18, 22 yr old No current outpatient medications on file. Social History Tobacco Use ??? Smoking status: Former Smoker Packs/day: 0.25 ??? Smokeless tobacco: Never Used ??? Tobacco comment: Juul, vape Substance Use Topics ??? Alcohol use: Yes Alcohol/week: 0.0 standard drinks Frequency: Monthly or less Drinks per session: 1 or 2 Binge frequency: Never ROS 10 point ROS negative except as listed above OBJECTIVE: BP 112/65 Pulse 78 Temp 98.2 ??F (36.8 ??C) (Tympanic) Resp 20 Wt 51.7 kg (114 lb) SpO2 98% BMI 20.19 kg/m?? GENERAL APPEARANCE: healthy, alert and no distress EYES: EOMI, PERRL, conjunctiva clear HENT: LTM retracted ear canals and TM's normal. Nose and mouth without ulcers, erythema or lesions. cobblestoning NECK: supple, nontender, no lymphadenopathy RESP: lungs clear to auscultation - no rales, rhonchi or wheezes CV: regular rates and rhythm, normal S1 S2, no murmur noted NEURO: Normal strength and tone, sensory exam grossly normal, normal speech and mentation SKIN: no suspicious lesions or rashes Results for orders placed or performed in visit on 12/14/19 XR Chest 2 Views Status: None Narrative CHEST TWO VIEWS 12/14/2019 9:32 AM HISTORY: 24-year-old woman with history of cough. Impression IMPRESSION: Since May 10, 2018, heart size is normal. No pleural effusion, pneumothorax, or abnormal area of consolidation. Slight opacity adjacent to the right heart border thought to be pericardial fat pad. YASSINE GUAMAN MD Results for orders placed or performed in visit on 12/14/19 Influenza A/B antigen Status: None Result Value Ref Range Influenza A/B Agn Specimen Nasal Influenza A Negative NEG^Negative Influenza B Negative NEG^Negative Streptococcus A Rapid Scr w Reflx to PCR Status: None Specimen: Throat Result Value Ref Range Strep Specimen Description Throat Streptococcus Group A Rapid Screen Negative NEG^Negative Group A Streptococcus PCR Throat Swab Status: None Specimen: Throat Result Value Ref Range Specimen Description Throat Strep Group A PCR Not Detected NDET^Not Detected X-ray image initially interpreted in clinic by me in order to rule out pneumonia. No evidence appreciated. ASSESSMENT: (J02.9) Sore throat (primary encounter diagnosis) Plan: Influenza A/B antigen, Streptococcus A Rapid Scr w Reflx to PCR, Group A Streptococcus PCR Throat Swab (R05) Cough Comment: No evidence of pneumonia. Plan: XR Chest 2 Views (Z78.9) Nicotine vapor product user Plan: discontinue (H69.82) Acute dysfunction of Eustachian tube, left Comment: no evidence of bacteria Plan: as below Patient Instructions With distilled water 2-3x per day for a minimum 2-3 days Plenty of fluids, rest, warm compresses on face Mucinex, increased fluids, humidifier at night, steaming in the day Cough drops and hot saltwater gargles as needed Adult Self-Care for Colds Colds are caused by viruses. They can't be cured with antibiotics. However, you can ease symptoms and support your body's efforts to heal itself. No matter which symptoms you have, be sure to: ?? Drink plenty of fluids (water or clear soup) ?? Stop smoking and drinking alcohol ?? Get plenty of rest Understand a fever ?? Take your temperature several times a day. If your fever is??100.4??F??(38.0??C) for more than a day, call your healthcare provider. ?? Relax, lie down. Go to bed if you want. Just get off your feet and rest. Also, drink plenty of fluids to avoid dehydration. ?? Take acetaminophen or a nonsteroidal anti-inflammatory agent (NSAID), such as ibuprofen. Treat a troubled nose kindly ?? Breathe steam or heated humidified air to open blocked nasal passages. cloth finishing range operator a hot shower or use a vaporizer. Be careful not to get burned by the steam. ?? Saline nasal sprays and decongestant tablets help open a stuffy nose. Antihistamines can also help, but they can cause side effects such as drowsiness and drying of the eyes, nose, and mouth. Soothe a sore throat and cough ?? Gargle every??2??hours with??1/4??teaspoon of salt dissolved in??1/2 cup of warm water. Suck on throat lozenges and cough drops to moisten your throat. ?? Cough medicines are available but it is unclear how well they actually work. ?? Take acetaminophen or an NSAID, such as ibuprofen, to ease throat pain Ease digestive problems ?? Put fluids back into your body. Take frequent sips of clear liquids such as water or broth. Avoiddrinks that have a lot of sugar in them, such as juices and sodas. These can make diarrhea worse. Older children and adults can drink sports drinks. ?? As your appetite returns, you can resume your normal diet. Ask your healthcare provider if there are any foods you should avoid. When to seek medical care When you first notice symptoms, ask your healthcare provider if antiviral medicines are appropriate.??Antibiotics should not be taken for colds or flu. Also, call your healthcare provider if you have any of the following symptoms or if you aren't feeling better after 7 days: ?? Shortness of breath ?? Pain or pressure in the chest or belly (abdomen) ?? Worsening symptoms, especially after a period of improvement ?? Fever of??100.4??F?? (38.0??C) or higher, or fever that doesn't go down with medicine ?? Sudden dizziness or confusion ?? Severe or continued vomiting ?? Signs of dehydration, including extreme thirst, dark urine, infrequent urination, dry mouth ?? Spotted, red, or very sore throat Date Last Reviewed: 09/10/2016 ?? [id number] [employer]. [address] [place] [address]. All rights reserved. This information is not intended as a substitute for professional medical care. Always follow your healthcare professional's instructions. Patient Education Earache, No Infection (Adult) Earaches can happen without an infection. This occurs when air and fluid build up behind the eardrumcausing a feeling of fullness and discomfort and reduced hearing. This is called otitis media with effusion (OME) or serous otitis media. It means there is fluid in the middle ear. It is not the same as acute otitis media, which is typically from infection. OME can happen when you have a cold if congestion blocks the passage that drains the middle ear. This passage is called the eustachian tube. OME may also occur with nasal allergies or after a bacterialmiddle ear infection. The pain or discomfort may come and go. You may hear clicking or popping sounds when you chew or swallow. You may feel that your balance is off. Or you may hear ringing in the ear. It often takes from several weeks up to 3 months for the fluid to clear on its own. Oral pain relievers and ear drops help if there is pain. Decongestants and antihistamines sometimes help. Antibioticsdon't help since there is no infection. Your doctor may prescribe a nasal spray to help reduce swelling in the nose and eustachian tube. This can allow the ear to drain. If your OME doesn't improve after 3 months, surgery may be used to drain the fluid and insert a small tube in the eardrum to allow continued drainage. Because the middle ear fluid can become infected, it is important to watch for signs of an ear infection which may develop later. These signs include increased ear pain, fever, or drainage from the ear. Home care The following guidelines will help you care for yourself at home: ?? You may use nuxj-igs-pmktctq medicine as directed to control pain, unless another medicine was prescribed. If you have chronic liver or kidney disease or ever had a stomach ulcer or GI bleeding, talk with your doctor before using these medicines. Aspirin should never be used in anyone under 18 years of age who is ill with a fever. It may cause severe liver damage. ?? You may use roer-tta-fjifeql decongestants such as phenylephrine or pseudoephedrine. But they arenot always helpful. Don't use nasal spray decongestants more than 3 days. Longer use can make congestion worse. Prescription nasal sprays from your doctor don't typically have those restrictions. ?? Antihistamines may help if you are also having allergy symptoms. ?? You may use medicines such as guaifenesin to thin mucus and promote drainage. Follow-up care Follow up with your healthcare provider or as advised if you are not feeling better after 3 days. When to seek medical advice Call your healthcare provider right away if any of the following occur: ?? Your ear pain gets worse or does not start to improve? Fever of 100.4??F (38??C) or higher, or as directed by your healthcare provider ?? Fluid or blood draining from the ear ?? Headache or sinus pain ?? Stiff neck ?? Unusual drowsiness or confusion Date Last Reviewed: 07/11/2016 ?? [id number] [employer]. [address] [place] [address], [place] [address]. All rights reserved. This information is not intended as a substitute for professional medical care. Always follow your healthcare professional's instructions. documented in this encounter Plan of Treatment Pending Results Name Type Priority Associated Diagnoses Date/Ti me Group A Streptococcus Microbiology Routine Sore throat 2019 9:03 AM PCR Throat Swab [employer] documented as of this encounter Procedures Procedure Name Priority Date/Time Associated Comments Diagnosis STREPTOCOCCUS A RAPID Routine 12/14/2019 9:03 AM Sore throat Results for this SCREEN W REFELX TO PCR [employer] proce dure are in the results section. GROUP A STREPTOCOCCUS Routine 12/14/2019 9:03 AM Cough Results for this PCR THROAT SWAB [employer] procedure ar e in the results section. GROUP A STREPTOCOCCUS Routine 12/14/2019 9:03 AM Sore throat PCR THROAT SWAB [employer] INFLUENZA A/B ANTIGEN Routine 12/14/2019 9:03 AM Sore throat Results for this [employer] procedure are i n the results section. documented in this encounter Results XR Chest 2 Views (12/14/2019 9:32 AM [employer]) Anatomical Region Laterality Modality Chest Computed Radiography Specimen (Source) Anatomical Location Collection Method / Collectio n Time Received Time / Laterality Volume Impressions 12/14/2019 11:02 AM [employer] IMPRESSION: Since May 10, 2018, heart size is normal. No pleural effusion, pneumothorax, or abnormal area of consolidation. Slight opacity adjacent to the right heart bord er thought to be pericardial fat pad. YASSINE GUAMAN MD Narrative 12/14/2019 11:02 AM [employer] CHEST TWO VIEWS ??12/14/2019 9:32 AM HISTORY: 24-year-old woman with history of cough. Procedure Note Yassine Guaman MD - 12/14/2019 CHEST TWO VIEWS 12/14/2019 9:32 AM HISTORY: 24-year-old woman with history of cough. IMPRESSION: Since May 10, 2018, heart s ize is normal. No pleural effusion, pneumothorax, or abnormal area of consolidation. Slight opacity adjacent to the right heart bord er thought to be pericardial fat pad. YASSINE GUAMAN MD Josse Hassan PA-C [facility] DIAGNOSTIC IMAGING O RDERABLES Group A Streptococcus PCR Throat Swab (12/14/2019 9:03 AM [employer]) [facility] Method Time Signature Specimen Throat 12/14/2019 [place] Description 9:26 AM [facility] Strep Group A Not Detected NDET^Not 12/14/2019 [place] [facility] PCR Detected 3:51 PM [employer] [facility] Comment: Group A Streptococcus DNA is not detecte d. FDA approved assay performed using [employer] id GeneXpert real-time PCR. Specimen Anatomical Collection Method Collection Time Receive d Time (Source) Location / / Volume Laterality Specimen from 12/14/2019 9:03 AM 12/14/19 9:04 throat [employer] AM [employer] (specimen) Jayjay Carter MD LAB - MICRO GENERAL ORDERABL ES Performing Organization Address City/[facility]/ZIP Code Phon e Number [address] [address] Streptococcus A Rapid Scr w Reflx to PCR (12/14/2019 9:03 AM [employer]) [facility] Method Time Signature Strep Specimen Throat 12/14/2019 [place] Description 9:01 AM [employer] [facility] Streptococcus Negative NEG^Negat 12/14/2019 [place] Group A Rapid herrera 9:26 AM [facility] Screen Comment: No Group A streptococcal antigen detecte d by immunoassay. Confirmatory testing in progress. Specimen Anatomical Collection Method Collection Time Receive d Time (Source) Location / / Volume Laterality Specimen from 12/14/2019 9:03 AM 12/14/19 20 9:04 throat [employer] AM [employer] (specimen) Jayjay Carter MD LAB - MICRO GENERAL ORDERABL ES Performing Organization Address City/[facility]/ZIP Code Phon e Number [address] [address] Influenza A/B antigen (12/14/2019 9:03 AM [employer]) athologist Signature Influenza A/B Nasal 12/14/2019 [place] Agn Specimen 9:04 AM [facility] Influenza A Negative NEG^Negati 12/14/2019 [place] ve 9:33 AM [facility] Influenza B Negative NEG^Negati 12/14/2019 [place] ve 9:33 AM [facility] Comment: Test results must be correlated with cli nical data. If necessary, results should be confirmed by a molecular assay or viral culture. Specimen Anatomical Collection Method Collection Time Receive d Time (Source) Location / / Volume Laterality Specimen from 12/14/2019 9:03 AM 12/14/19 9:04 nose (specimen) [employer] AM [employer] Jayjay Carter MD LAB - MICRO GENERAL ORDERABL ES Performing Organization Address City/State/ZIP Code Phon e Number [facility] [address] [facility] [place] [id number] documented in this encounter Visit Diagnoses Diagnosis Cough - Primary Sore throat Acute pharyngitis Nicotine vapor product user Acute dysfunction of Eustachian tube, le ft Wheeze Wheezing Cough documented in this encounter Additional Health Concerns Assessment Noted Time PHQ-9 Depression Total Score: 15 09/16/2018 1:27 PM CS T documented as of this encounter Care Teams Offset Label Rewinder Relationship Specialty Start Date End Date Viri Gallardo APRN AGRICULTURAL EQUIPMENT OPERATOR PCP - General Nurse Practitioner 06/29/17 04/14/20 [address] [facility] [place] [address] Chasity Wild PA-C Assigned PCP 09/17/19 08/17/[address] [place] [address] [place] [id number] documented as of this encounter
--- OUTSIDE RECORDS SUMMARY | 2022-09-05 18:55 | XMS_ITS | Encounter Summary ---
:1995 Author Organization [place] Address [address] [facility] [place] [address] Care Team Providers Name Role Phone Viri Gallardo APRN, CNP Primary Care Provider [phone] Viri Gallardo APRN THERMOSTATIC CONTROLS SUPERVISOR Unavailable [phone] Reason for Visit Reason Comments Urgent Care Neck Pain Severe neck pain since last night, feels slightly swelled and feels numb 7/10. No known injury. tx: I BU, ice, Tylenol, heating pack Encounter Details Date Type Department Care Team Description 05/25/2019 Office Visit [facility] Joel Keller Strain o f left Urgent Care Jesu Lima PA-C trapezius muscle, [address] initial encounter [place], [place] (Primary Dx) [address] [address] [place] [address] Social History Tobacco Use Types Packs/Day Years [...] Sign Reading Time Taken Comments Blood Pressure 98/60 05/25/2019 10:48 AM CDT Pulse 67 05/25/2019 10:48 AM CDT Temperature 36.6 ??C (97.9 ??F) 05/25/2019 10:48 AM CDT Respiratory Rate - - Oxygen Saturation 98% 05/25/2019 10:48 AM CDT Inhaled Oxygen Concentration - - Weight 55.4 kg (122 lb 1.6 oz) 05/25/2019 10:48 AM CDT Height 160 cm (5' 3) 05/25/2019 10:48 AM CDT Body Mass Index 21.63 05/25/2019 10:48 AM CDT documented in this encounter Patient Instructions Patient InstructionsJoel Keller PA-C - 05/25/2019 10:05 AM CDT Images from the original note were not included. Patient Education Neck Sprain or Strain A sudden force that causes turning or bending of the neck can cause sprain or strain. An example would be the force from a car accident. This can stretch or tear muscles called a strain. It can also stretch or tear ligaments called a sprain. Either of these can cause neck pain. Sometimes neck pain occurs after a simple awkward movement. In either case, muscle spasm is commonly present and contributesto the pain.?? Unless you had a forceful physical injury (for example, a car accident or fall), X-rays are often not ordered for the initial evaluation of neck pain. If pain continues and does not respond to medical treatment, X-rays and other tests may be done later. Home care ?? You may feel more soreness and spasm the first few days after the injury. Rest until symptoms start to improve. ?? When lying down, use a comfortable pillow or a rolled towel that supports the head and keeps the spine in a neutral position. The position of the head should not be tilted forward or backward. ?? Apply an ice pack over the injured area for 15 to 20 minutes every 3 to 6 hours. Do this for the first 24 to 48 hours. You can make an ice pack by filling a plastic bag that seals at the top with ice cubes and then wrapping it with a thin towel. After 48 hours, apply heat (warm shower or warm bath)for 15 to 20 minutes several times a day, or alternate ice and heat. ?? You may use [id number] pain medicine to control pain, unless another pain medicine was prescribed. If you have chronic liver or kidney disease or ever had a stomach ulcer or gastrointestinal bleeding, talk with your healthcare provider before using these medicines. ?? If a soft cervical collar was prescribed, only ear it for periods of increased pain. It should not be worn for more than 3 hours a day, or for longer than 1 to 2 weeks. Follow-up care Follow up with your healthcare provider, or as directed. Physical therapy may be needed. Sometimes fractures don???t show up on the first X-ray. Bruises and sprains can sometimes hurt as much as a fracture. These injuries can take time to heal completely. If your symptoms don???t improve or they get worse, talk with your healthcare provider. You may need a repeat X-ray or other tests. If X-rays were taken, you will be told of any new findings that may affect your care. Call 911 Call 911 if you have: ?? Neck swelling, difficulty or painful swallowing ?? Trouble breathing ?? Chest pain When to seek medical advice Call your healthcare provider right away if any of these occur: ?? Pain becomes worse or spreads into your arms ?? Weakness or numbness in one or both arms ?? Unusual headaches that worsen when you change positions Date Last Reviewed: 02/08/2018 ?? [id number] [employer]. [address] [place] [address]. All rights reserved. This information is not intended as a substitute for professional medical care. Always follow your healthcare professional's instructions. documented in this encounter Progress Notes Joel Keller PA-C - 05/25/2019 10:05 AM CDT Joel Amos presents to clinic today for evaluation of acute onset bilateral posterior neck pain in distribution from bilateral occiput and into right posterior and posterior left shoulder area (pt points to these areas) Denies any fever or other systemic sxs. MA note states patient feel numbbut, upon direct questioning, she denies any UE numbness, tingling or weakness. She does admit to intermittent episodes of shooting pain into posterior shoulder region bilaterally that lasts an estimated several seconds in total duration. She denies any hx of acute trauma, obvious overuse or other injury. Sxs are increased by: head turning left and right Sxs are decreased by: neck in neutral position Home tx: ?? Past Cervical Spine Hx: Denies any past hx of cervical spine problems or UE radiculopathy. ROS: CARDIAC Denies any CP or SOB. RESP: Denies any fever, cough or SOB GI: Denies any abdominal pain NEURO: No headache. No UE numbness, pain, tingling or weakness. No TIA or CVA sxs SKIN: Denies rash or blister like lesions ? Past Medical History: Diagnosis Date ??? Anxiety [...] 22 yr old Current Outpatient Medications Medication ??? ibuprofen (ADVIL/MOTRIN) 200 MG tablet ??? SUMAtriptan (IMITREX) 100 MG tablet No current facility-administered medications for this visit. No Known Allergies OBJECTIVE: BP 98/60 Pulse 67 Temp 97.9 ??F (36.6 ??C) (Tympanic) Ht 1.6 m (5' 3) Wt 55.4 kg (122 lb 1.6 oz) SpO2 98% BMI 21.63 kg/m? GENERAL: Very pleasant, comfortable and generally well appearing. SKIN: No rashes. Normal color. Sclera clear. CARDIAC:NORMAL - regular rate and rhythm without murmur., normal s1/s2 and without extra heart sounds RESP: Normal - CTA without rales, rhonchi, or wheezing. CERVICAL/THORACIC SPINE: Non-tender over the cervical or thoracic vertebral processes. Pt has significant, diffuse, bilateral, trapezius tension and tenderness. Neck is supple. No neck stiffness. Pt has FROM neck ,despite sxs, but c/o discomfort with head turning sie to side. UE bicep and inventory control planner strength is good and equal bilaterally. UE sensation intact to light touch, along multiple dermatomal distributions and into all distal fingertips bilaterally. NEURO: Alert and oriented. Normal speech and mentation. CN II/XII grossly intact. Gait within normallimits. ? ASSESSMENT/PLAN: ?? (V92.130S) Strain of left trapezius muscle, initial encounter (primary encounter diagnosis) Plan: cyclobenzaprine (FLEXERIL) 10 MG tablet 1. Trial of Flexeril as per above. Reviewed potential somnolent SE 2. Trial of home massage and heat 3.Trial of alternating Ibuprofen 400 mg with Tylenol 650 mg q 4. Follow-up with PCP if sxs change, worsen or fail to fully resolve with above tx. 5. Call 911 Call 911 if you have: ?? Neck swelling, difficulty or painful swallowing ?? Trouble breathing ?? Chest pain When to seek medical advice Call your healthcare provider right away if any of these occur: ?? Pain becomes worse or spreads into your arms ?? Weakness or numbness in one or both arms ?? Unusual headaches that worsen when you change positions 5. In addition to the above, neck sprain/strainred flag signs and sxs are reviewed with pt both verbally and by way of printed educational material for home review. Pt verbalizes understanding of andagrees to the above plan. documented in this encounter Plan of Treatment Not on filedocumented as of this encounter Visit Diagnoses Diagnosis Strain of left trapezius muscle, initial encounter - Primary documented in this encounter Additional Health Concerns Assessment Noted Time PHQ-9 Depression Total Score: 15 09/16/2018 1:27 PM CS T documented as of this encounter Care Teams Production Troubleshooter Relationship Specialty Start Date End Date Viri Gallardo APRN THERMOSTATIC CONTROLS SUPERVISOR PCP - General Nurse Practitioner 06/29/17 04/14/[address] [address] [place], [place] [address] Viri Gallardo APRN THERMOSTATIC CONTROLS SUPERVISOR Assigned PCP 09/12/17 09/16/[address] [address] documented as of this encounter
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
--- OUTSIDE RECORDS SUMMARY | 2022-09-05 18:55 | XMS_ITS | Encounter Summary ---
:1995 Author Organization [place] Address [address] [place] [address] Care Team Providers Name Role Phone Viri Gallardo APRN, CNP Primary Care Provider [phone] Viri Gallardo APRN WIRELINE SUPERVISOR Unavailable [phone] Encounter Details Date Type Department Care Team Description 12/28/2018 Orders Only [facility] Nee d for prophylactic [facility] chemotherapy (Primary Dx) [address] [facility] [address] [place] [address] Social History Tobacco Use Types Packs/Day [...] Name Priority Date/Time Associated Diagnosis Comme nts COMPREHEN DRUG Routine 12/28/2018 7:58 Need for Results fo r this ANALYSIS UR AM CDT prophylactic procedure are i n chemotherapy the results section. CBC WITH PLATELETS & Routine 12/28/2018 7:58 Need for Resu lts for this DIFFERENTIAL AM CDT prophylactic procedure are i n chemotherapy the results section. TSH Routine 12/28/2018 7:58 Need for Results for this AM CDT prophylactic procedure are i n chemotherapy the results section. LIPID REFLEX TO DIRECT Routine 12/28/2018 7:58 Need for Re sults for this LDL PANEL AM CDT prophylactic procedure are i n chemotherapy the results section. HEMOGLOBIN A1C Routine 12/28/2018 7:58 Need for Results fo r this AM CDT prophylactic procedure are i n chemotherapy the results section. COMPREHENSIVE Routine 12/28/2018 7:58 Need for Results for this METABOLIC PANEL AM CDT prophylactic procedure ar e in chemotherapy the results section. documented in this encounter Results Hemoglobin A1c (12/28/2018 7:58 AM CDT) athologist Signature Hemoglobin A1C 5.5 0 - 5.6 % 12/28/2018 [facility] 8:26 AM CDT [facility] Comment: Normal <5.7% Prediabetes 5.7-6.4% ??Diab etes 6.5% or higher - adopted from ADA consensus guidelines. Specimen Anatomical Collection Method Collection Time Receive d Time (Source) Location / / Volume Laterality Blood specimen 12/28/2018 7:58 AM 019 8:00 (specimen) CDT AM CDT Terri Patel NP LAB - BLOOD ORDERABLES Performing Organization Address City/State/ZIP Code Phon e Number [facility] [address] [place] [address] TSH (12/28/2018 7:58 AM CDT) athologist Signature TSH 1.13 0.40 - 4.00 12/28/2018 [facility] mU/L 1:41 PM CDT [facility] Specimen Anatomical Collection Method Collection Time Receive d Time (Source) Location / / Volume Laterality Blood specimen 12/28/2018 7:58 AM 019 8:00 (specimen) CDT AM CDT Terri Patel NP LAB - BLOOD ORDERABLES Performing Organization Address City/State/ZIP Code Phon e Number [facility] [address] [place] [address] (ABNORMAL) Comprehensive metabolic panel (12/28/2018 7:58 AM CDT) [facility] gist Method Time Signature Sodium 139 133 - 144 12/28/2018 [facility] mmol/L 1:23 PM CDT CLINICS [facility] Potassium 4.5 3.4 - 5.3 12/28/2018 [facility] mmol/L 1:23 PM CDT CL[facility] Chloride 110 (H) 94 - 109 12/28/2018 [facility] mmol/L 1:23 PM CDT [facility] Carbon Dioxide 26 20 - 32 12/28/2018 [facility] mmol/L 1:32 PM CDT [facility] Anion Gap 3 3 - 14 12/28/2018 [facility] mmol/L 1:32 PM CDT [facility] Glucose 99 70 - 99 12/28/2018 [facility] mg/dL 1:32 PM CDT [facility] Urea Nitrogen 12 7 - 30 12/28/2018 [facility] mg/dL 1:[address] [facility] Creatinine 0.81 0.52 - 12/28/2018 [facility] 1.04 mg/dL 1:32 PM T CLINICS [facility] GFR Estimate >90 >60 12/28/2018 [facility] mL/min/{1. 1:32 PM CDT CLINICS 73_m2} [facility] Comment: Non GFR Calc Starting 09/27/2018, serum creatinine ba sed estimated GFR (eGFR) will be calculated using the Chronic Kidney Dise [facility] Epidemiology Collaboration (CKD-EPI) equation. GFR Estimate If >90 >60 mL/min/{1.73_m2} 12/28/2018 1: 32 PM [facility] Black T [facility] Comment: GFR Calc Starting 09/27/2018, serum creatinine ba sed estimated GFR (eGFR) will be calculated using the Chronic Kidney Dise [facility] Epidemiology Collaboration (CKD-EPI) equation. Calcium 9.1 8.5 - 10.1 12/28/2018 1:32 PM [facility] mg/dL T [facility] Bilirubin Total 0.5 0.2 - 1.3 12/28/2018 1:33 PM [facility] [place] mg/dL CDT HOSPITAL Albumin 4.0 3.4 - 5.0 g/dL 12/28/2018 1:33 PM [facility] [place] CDT HOSPITAL Protein Total 7.6 6.8 - 8.8 g/dL 12/28/2018 1:33 PM [facility] Alkaline Phosphatase 37 (L) 40 - 150 U/L 12/28/2018 1:33 PM [facility] ALT 25 0 - 50 U/L 12/28/2018 1:33 PM [facility] AST 14 0 - 45 U/L 12/28/2018 1:33 PM [facility] Specimen Anatomical Collection Method Collection Time Receive d Time (Source) Location / / Volume Laterality Blood specimen 12/28/2018 7:58 AM 019 8:00 (specimen) CDT AM CDT Terri Patel NP LAB - BLOOD ORDERABLES Performing Organization Address City/State/ZIP Code Phon e Number [facility] [address] [place] [address] [facility] [address] [place], [place] [address] [facility] [address] [place] [address], [place] [phone] Drug Screen Comprehensive, Urine w/o Reported Meds (Pain Care Package) (12/28/2018 7:58 AM CDT) athologist Signature Comprehen Drug FINAL 01/01/2019 [facility] Analysis UR 7:28 AM CDT CLINICS [facility] Comment: (Note) COMPREHENSIVE DRUG ANALYSIS,UR Test ? Result ? Flag ? Units ? Drug Present Carboxy-THC ?243 ? ng/mg creat ??Carboxy-THC is a metabolite of tetrah ydrocannabinol ??(THC). ??Source of THC is most commonly illici t, but THC is also present ??in a scheduled prescription medicatio n. Aripiprazole ? PRESENT ? Test ?Res ult ?Flag ?? Units ?Ref Range ? Creatinine ?182 ?mg/dL ?>=20 ? For clinical consultation, please call . Analysis performed by [employer] [place] [address] Specimen Anatomical Collection Method Collection Time Receive d Time (Source) Location / / Volume Laterality Urine specimen 12/28/2018 7:58 AM 019 8:00 (specimen) CDT AM CDT Terri Patel PROMOTIONAL MARKETING AGENT LAB - URINE ORDERABLES Performing Organization Address City/[facility]/ZIP Code Phon e Number [facility] [address] [place] [address] (ABNORMAL) Lipid panel reflex to direct LDL Fasting (12/28/2018 7:58 AM CDT) [facility] Method Time Signature Cholesterol 155 <200 12/28/2018 [facility] mg/dL 1:33 PM CDT [facility] Triglycerides 144 <150 12/28/2018 [facility] mg/dL 1:[address] [facility] HDL Cholesterol 46 (L) >49 mg/dL 12/28/2018 [facility] 1:[address] [facility] LDL Cholesterol 80 <100 12/28/2018 [facility] Calculated mg/dL 1:[address] [facility] Comment: Desirable: <100 mg/dl Non HDL Cholesterol 109 <130 mg/dL 12/28/2018 1:34 PM CDT [facility] Specimen Anatomical Collection Method Collection Time Receive d Time (Source) Location / / Volume Laterality Blood specimen 12/28/2018 7:58 AM 019 8:00 (specimen) CDT AM CDT Terri Patel PROMOTIONAL MARKETING AGENT LAB - BLOOD ORDERABLES Performing Organization Address City/State/ZIP Code Phon e Number [facility] [address] [place], [place] [address] [facility] [address] [place] [address], [place] [phone] (ABNORMAL) CBC with platelets differential (12/28/2018 7:58 AM CDT) [facility] Method Time Signature WBC 11.1 (H) 4.0 - 12/28/2018 [facility] 11.0 8:27 AM CDT CLINICS 10e9/L [facility] RBC Count 4.40 3.8 - 5.2 12/28/2018 [facility] 10e12/L 8:27 AM CDT [facility] Hemoglobin 14.3 11.7 - 12/28/2018 [facility] 15.7 g/dL 8:27 AM CDT [facility] Hematocrit 42.5 35.0 - 12/28/2018 [facility] 47.0 % 8:27 AM CDT [facility] MCV 97 78 - 100 12/28/2018 [facility] fl 8:27 AM CDT [facility] MCH 32.5 26.5 - 12/28/2018 [facility] 33.0 pg 8:27 AM CDT [facility] MCHC 33.6 31.5 - 12/28/2018 [facility] 36.5 g/dL 8:27 AM CDT [facility] RDW 12.0 10.0 - 12/28/2018 [facility] 15.0 % 8:27 AM CDT [facility] Platelet Count 325 150 - 450 12/28/2018 [facility] 10e9/L 8:27 AM CDT [facility] % Neutrophils 65.7 % 12/28/2018 [facility] 8:27 AM CDT [facility] % Lymphocytes 25.3 % 12/28/2018 [facility] 8:27 AM CDT [facility] % Monocytes 7.0 % 12/28/2018 [facility] 8:27 AM CDT [facility] % Eosinophils 1.7 % 12/28/2018 [facility] 8:27 AM CDT [facility] % Basophils 0.3 % 12/28/2018 [facility] 8:27 AM CDT [facility] Absolute 7.3 1.6 - 8.3 12/28/2018 [facility] Neutrophil 10e9/L 8:27 AM CDT [facility] Absolute 2.8 0.8 - 5.3 12/28/2018 [facility] Lymphocytes 10e9/L 8:27 AM CDT [facility] Absolute 0.8 0.0 - 1.3 12/28/2018 [facility] Monocytes 10e9/L 8:27 AM CDT [facility] Absolute 0.2 0.0 - 0.7 12/28/2018 [facility] Eosinophils 10e9/L 8:27 AM CDT [facility] Absolute 0.0 0.0 - 0.2 12/28/2018 [facility] Basophils 10e9/L 8:27 AM CDT [facility] Diff Method Automated 12/28/2018 [facility] Method 8:27 AM CDT [facility] Specimen Anatomical Collection Method Collection Time Receive d Time (Source) Location / / Volume Laterality Blood specimen 12/28/2018 7:58 AM 019 8:00 (specimen) CDT AM CDT Terri Patel NP LAB - BLOOD ORDERABLES Performing Organization Address City/State/ZIP Code Phon e Number [facility] [address] [facility] [place] [phone] documented in this encounter Visit Diagnoses Diagnosis Need for prophylactic chemotherapy - Wendy snyder Need for other prophylactic chemotherapy documented in this encounter Additional Health Concerns Assessment Noted Time PHQ-9 Depression Total Score: 15 09/16/2018 1:27 PM CS T documented as of this encounter Care Teams Medical Center Representative Relationship Specialty Start Date End Date Viri Gallardo APRN WIRELINE SUPERVISOR PCP - General Nurse Practitioner 06/29/17 04/14/20 [address] [facility] [place] [address] Viri Gallardo APRN WIRELINE SUPERVISOR Assigned PCP 09/12/17 09/16/19 [address] [facility] [place] [address] documented as of this encounter
--- OUTSIDE RECORDS SUMMARY | 2022-09-05 18:55 | XMS_ITS | Encounter Summary ---
:1995 Author Organization [place] Address [address] [place] [address] Care Team Providers Name Role Phone No Ref-Primary, Physician Primary Care Provider [phone] Viri Gallardo APRN PLASTICS SHEET FINISHING PRESS OPERATOR Unavailable [phone] Chasity Wild PA-C Unavailable [phone] Encounter Details Date Type Department Care Team Description 04/15/2020 Travel Social History Tobacco Use Types Packs/Day [...] documented as of this encounter Care Teams Optical Engineering Manager Relationship Specialty Start Date End Date No Ref-Primary, Physician PCP - General 04/15/20 Viri Gallardo APRN PLASTICS SHEET FINISHING PRESS OPERATOR Nurse Practitioner 04/15/20 [address] [facility] [place] [address] Chasity Wild PA-C Assigned PCP 09/17/19 08/17/20 0 [facility] [place] [id number] documented as of this encounter
--- OUTSIDE RECORDS SUMMARY | 2022-09-05 18:55 | XMS_ITS | Encounter Summary ---
:1995 Author Organization [place] Address [facility]ly [facility]0 [facility] [place] [address] Care Team Providers Name Role Phone No Ref-Primary, Physician Primary Care Provider [phone] Viri Gallardo APRN MULTIMEDIA DEVELOPER Unavailable [phone] Chasity Wild PA-C Unavailable [phone] Reason for Visit Reason Comments Mental Health Problem Pt states she is having incr eased panic attacks Encounter Details Date Type Department Care Team Description 04/15/2020 Emergency Health [facility] Arianne Vincent MD [address] [place] [address] Adjustment disorder with mixed anxiety a nd depressed mood; Emergency Department Angel Katz MD [address] [place] [address] [place] [address] Substance abuse (H) [address] [place] [id number] Social History Tobacco Use Types Packs/Day Years Used Date Smoking Tobacco: Every Day Cigarettes 1 Vaping Device Smokeless Tobacco: Never Tobacco Cessation: Ready to Quit: No; Co unseling Given: No Alcohol Use Standard Drinks/Week Comments Yes 0 [...] Sign Reading Time Taken Comments Blood Pressure 117/75 04/15/2020 8:37 PM CDT Pulse 62 04/15/2020 8:37 PM CDT Temperature 36.7 ??C (98 ??F) 04/15/2020 6:26 PM CDT Respiratory Rate 16 04/15/2020 8:37 PM CDT Oxygen Saturation 100% 04/15/2020 8:37 PM CDT Inhaled Oxygen Concentration - - Weight 49 kg (108 lb) 04/15/2020 6:26 PM CDT Height - - Body Mass Index 19.13 07/21/2019 7:57 AM CDT documented in this encounter Discharge Instructions Discharge InstructionsAngel Katz MD - 04/15/2020 8:30 PM CDT Consider pursuing a rule 25 for treatment recommendation and authorization Follow-up established care and services documented in this encounter Medications at Time of Discharge Medication Sig Dispensed Refills Start Date End Date albuterol (PROAIR Inhale 2 puffs into 1 Inhaler 0 0 03/03/2021 HFA/PROVENTIL the lungs every 4 HFA/VENTOLIN HFA) 108 hours (while awake) (90 Base) MCG/ACT inhalerIndications: Wheeze fluticasone (FLONASE) 50 [place] 1 spray into 15.8 mL 0 02/202003/03/2021 MCG/ACT nasal both nostrils daily sprayIndications: Acute dysfunction of Eustachian tube, left documented as of this encounter ED Notes Vladislav Hodges RN - 04/15/2020 7:31 PM CDT Pt friend who accompanied her to the ED went to her car and brought in a large raman duffle bag filledwith Pt personal items. The bag was given to security after placing two Pt stickers on the bag. Marija Hubbard MD - 04/15/2020 6:45 PM CDT I have performed an in person assessment of the patient. Based on this assessment the patient no longer requires a one on one attendant at this point in time. Marija Hubbard MD 04/15/20 8413 Alexandria Mooney RN - 04/15/2020 6:23 PM CDT Pt states she feels like she's going crazy. Pt says she has really bad PTSD from her past and feels like it's coming back to haunt her. Pt has had a lot of panic attacks in the last few months and keeps seeing the bad things from her past replay. Pt states she's not taking care of herself like she should, and also states she drinks a bottle of wine a day. Angel Katz MD - 04/15/2020 6:21 PM CDT ED Provider Note [facility] History Chief Complaint Patient presents with ??? Mental Health Problem Pt states she is having increased panic attacks HPI Joel Bautista is a 24 year old female who is here as she wants to come into the hospital due to no place to stay presently. She had arrived from [place] where she was with her boyfriend. She came into town 3 days ago and been staying here and there. She admits to drinking. She has anxiety. She has benesmoking THC and using triple Cs. Patient is/was and left her spouse last fall. They have 5 yo twins who are being cared for by the father and grandmother. She reports being kicked out of boyfriend's home and decided to come back to [place]. Patient feels she should be hospitalized and if not, then she will not agree to any recommendations.She declined offered therapy, medications, CD treatment and homeless mcfp placement. Patient wanted to leave as she realized she was not being admitted. She does not exhibit psychosis. She does not appear under the influence. Please see [facility] Crisis Assessment on 04/15/2020 in [facility] for further details. Past Medical History Past Medical History: Diagnosis Date ??? Bipolar 1 disorder (H) Per pt, diagnosed 3 or 4 years ago ??? Depressive disorder when pt was 19 History reviewed. No pertinent surgical history. No current outpatient medications on file. No Known Allergies Past medical history, past surgical history, medications, and allergies were reviewed with the patient. Family History History reviewed. No pertinent family history. Family history was reviewed with the patient. Social History Social History Tobacco Use ??? Smoking status: Current Every Day Smoker Packs/day: 1.00 Types: Vaping Device, Cigarettes ??? Smokeless tobacco: Never Used Substance Use Topics ??? Alcohol use: Yes Comment: Pt states she drinks 1 bottle of wine a day ??? Drug use: Yes Types: Methamphetamines Comment: Using a lot of triple c's Social history was reviewed with the patient. Review of Systems Constitutional: Negative. HENT: Negative. Eyes: Negative. Respiratory: Negative. Cardiovascular: Negative. Gastrointestinal: Negative. Endocrine: Negative. Genitourinary: Negative. Musculoskeletal: Negative. Neurological: Negative. Psychiatric/Behavioral: Positive for decreased concentration. Negative for hallucinations and suicidal ideas. The patient is nervous/anxious. The patient is not hyperactive. All other systems reviewed and are negative. Physical Exam BP: 124/76 Pulse: 98 Temp: 98 ??F (36.7 ??C) Resp: 16 Weight: 49 kg (108 lb) SpO2: 99 % Physical Exam Vitals signs and nursing note reviewed. HENT: Head: Normocephalic. Nose: Nose normal. Mouth/Throat: Mouth: Mucous membranes are moist. Eyes: Pupils: Pupils are equal, round, and reactive to light. Neck: Musculoskeletal: Normal range of motion. Pulmonary: Effort: Pulmonary effort is normal. Musculoskeletal: Normal range of motion. Skin: General: Skin is warm. Neurological: General: No focal deficit present. Mental Status: She is alert. Psychiatric: Attention and Perception: Attention and perception normal. She does not perceive auditory or visualhallucinations. Mood and Affect: Mood and affect normal. Speech: Speech normal. Behavior: Behavior normal. Behavior is not agitated, aggressive, hyperactive or combative. Behavioris cooperative. Thought Content: Thought content normal. Thought content is not paranoid or delusional. Thought content does not include homicidal or suicidal ideation. Cognition and Memory: Cognition and memory normal. Judgment: Judgment normal. ED Course Procedures No results found for any visits on 04/15/20. Medications - No data to display Assessments & Plan (with Medical Decision Making) Patient with history of substance abuse who is here seeking hospitalization as she has no place to go. She came back from [place] after she got kicked out of boyfriend's place last week. There was no justification to offer admission and patient decided to leave as she was not getting what she wanted here. She declined all outpatient offers including therapy, mcfp placement referrals, treatment. She is encouraged to pursue a rule 25. I have reviewed the nursing notes. I have reviewed the findings, diagnosis, plan and need for followup with the patient. New Prescriptions No medications on file Final diagnoses: Adjustment disorder with mixed anxiety and depressed mood Substance abuse (H) -- Angel Katz MD Emergency Medicine [facility] [place], EMERGENCY DEPARTMENT 04/15/2020 Angel Katz MD 04/15/202040 documented in this encounter Plan of Treatment Not on filedocumented as of this encounter Visit Diagnoses Diagnosis Adjustment disorder with mixed anxiety a nd depressed mood Substance abuse (H) Other, mixed, or unspecified nondependen t drug abuse, unspecified documented in this encounter Additional Health Concerns Assessment Noted Time PHQ-9 Depression Total Score: 15 09/16/2018 1:27 PM CS T documented as of this encounter Care Teams Red Hat Linux Administrator Relationship Specialty Start Date End Date No Ref-Primary, Physician PCP - General 04/15/20 Viri Gallardo APRN MULTIMEDIA DEVELOPER Nurse Practitioner 04/15/20 [address] [facility] [place] [address] Chasity Wild PA-C Assigned PCP 09/17/19 08/17/[address] [place] [address] [place] [address] documented as of this encounter
--- OUTSIDE RECORDS SUMMARY | 2022-09-05 18:55 | XMS_ITS | Encounter Summary ---
:1995 Author Organization [place] Address [address] [place] [address] Care Team Providers Name Role Phone Viri Gallardo APRN, CNP Primary Care Provider [phone] Chasity Wild PA-C Unavailable [phone] Reason for Visit Diagnostic Imaging XR (Routine) - Closed Specialty Diagnoses / Procedures Referred By Contact Refer red To Contact Diagnoses Cough Josse Hassan, Procedures XR Chest 2 Views JAGDISH [address] [facility] [place] [address] Referral ID Status Reason Start Date Expiration Date Visits Requ ested Visits Authorized [id number] Closed 12/14/2019 12/13/2020 1 1 Encounter Details Date Type Department Care Team Description 12/14/2019 Ancillary Procedure [facility] Josse Hassan [facility] Jesu Urbano PA-C [address] [place] [address] [place] [id number] [phone] Social History Tobacco Use Types Packs/Day Years [...] Name Priority Date/Time Associated Diagnosis Comme nts XR CHEST 2 VIEWS Routine 12/14/2019 9:32 AM Cough Resul ts for this ESTHETICIAN FACIALIST procedure are i n the results section. documented in this encounter Results XR Chest 2 Views (12/14/2019 9:32 AM ESTHETICIAN FACIALIST) Anatomical Region Laterality Modality Chest Computed Radiography Specimen (Source) Anatomical Location Collection Method / Collectio n Time Received Time / Laterality Volume Impressions 12/14/2019 11:02 AM ESTHETICIAN FACIALIST IMPRESSION: Since May 10, 2018, heart size is normal. No pleural effusion, pneumothorax, or abnormal area of consolidation. Slight opacity adjacent to the right heart bord er thought to be pericardial fat pad. YASSINE GUAMAN MD Narrative 12/14/2019 11:02 AM ESTHETICIAN FACIALIST CHEST TWO VIEWS ??12/14/2019 9:32 AM HISTORY: [...] pad. YASSINE GUAMAN MD Josse Hassan PA-C [facility] documented in this encounter Visit Diagnoses Diagnosis Cough documented in this encounter Additional Health Concerns Assessment Noted Time PHQ-9 Depression Total Score: 15 09/16/2018 1:27 PM CS T documented as of this encounter Care Teams Communications Supervisor Relationship Specialty Start Date End Date Viri Gallardo APRN CNP PCP - General Nurse Practitioner 06/29/17 04/14/20 [address] [facility] [place] [address] Chasity Wild PA-C Assigned PCP 09/17/19 08/17/[address] [place] [address] [address] [place], [place] [address] documented as of this encounter
--- OUTSIDE RECORDS SUMMARY | 2022-09-05 18:55 | XMS_ITS | Encounter Summary ---
:1995 Author Organization [place] Address [address] [place] [address] Care Team Providers Name Role Phone Viri Gallardo APRN, CNP Primary Care Provider [phone] Viri Gallardo APRN STUDIO COUCH FRAME BUILDER Unavailable [phone] Reason for Visit Reason Comments Eye Problem one pupil bigger than the ot her, pain, blurry, irritable, shaky, has swelling, took some allergy drops Encounter Details Date Type Department Care Team Description 01/27/[address] [facility] Jong Henderson Pupil as ymmetry (Primary Dx); Urgent Care Jesu Granda MD Eye discomfort, left [address] [address] [place] [phone] Social History Tobacco Use Types Packs/Day [...] Sign Reading Time Taken Comments Blood Pressure 110/66 01/27/2019 9:05 AM CDT Pulse 88 01/27/2019 9:05 AM CDT Temperature 37 ??C (98.6 ??F) 01/27/2019 9:05 AM CDT Respiratory Rate 16 01/27/2019 9:05 AM CDT Oxygen Saturation 100% 01/27/2019 9:05 AM CDT Inhaled Oxygen Concentration - - Weight 51.3 kg (113 lb) 01/27/2019 9:05 AM CDT Height 160 cm (5' 3) 01/27/2019 9:05 AM CDT Body Mass Index 20.02 01/27/2019 9:05 AM CDT documented in this encounter Patient Instructions Patient InstructionsJong Henderson MD - 01/27/2019 9:05 AM CDT [address] [place] [address] [facility] Emergency Department documented in this encounter Progress Notes Jong Henderson MD - 01/27/2019 9:05 AM CDT Images from the original note were not included. Subjective: Joel Amos is a 23 year old female who presents for Chief Complaint Patient presents with ??? Eye Problem one pupil bigger than the other, pain, blurry, irritable, shaky, has swelling, took some allergy drops Started this morning with blurry vision on the left side . No eye discharge or redness. Eyelid was alittle discomforting. Discomfort but no feeling of a sharp moving object in the eye. She denies headtrauma or concussion. Denies rashes of the body. No fever. No diagnosis of IBD. She took allergy eye meds and an oral med. Recently started on abilify and not tolerating well (diarrhea) -- was told to decrease dosage. Has been on it for 2 months and initially was on 15mg. Patient Active Problem List Diagnosis Date Noted ??? Hallux abducto valgus, bilateral 08/03/2018 Priority: Medium ??? ERRONEOUS ENCOUNTER--DISREGARD 02/22/2018 Priority: Medium ??? Papanicolaou smear of cervix with low grade squamous intraepithelial lesion (LGSIL) 08/26/2017 Priority: Medium 08/26/17 LSIL, +HR HPV, not 16/18, 22 yr old. Plan 1 yr pap cytology only 09/16/18 NIL. Plan 1 yr Dx pap cytology only ??? Moderate bipolar II disorder, most recent episode major depressive (H) 06/17/2016 Priority: Medium ??? Cannabis abuse, continuous - Mild 06/17/2016 Priority: Medium ??? Moderate episode of recurrent major depressive disorder (H) 06/01/2016 Priority: Medium ??? Pain in joint, pelvic region and thigh 01/16/2015 Priority: Medium ??? [facility] 09/04/2014 Priority: Medium No active Care Coordination at this time. EMERGENCY CARE PLAN Presenting Problem Signs and Symptoms Treatment Plan Questions or concerns during clinic hours I will call the clinic directly Questions or concerns outside clinic hours I will call the 24 hour nurse line at [phone] Patient needs to schedule an appointment I will call the 24 hour scheduling team at [phone] orclinic directly Same day treatment I will call the clinic first, nurse line if after hours, urgent care and expresscare if needed ??? Migraine 03/27/2014 Priority: Medium Current Outpatient Medications Medication ??? ARIPiprazole (ABILIFY) 5 MG tablet ??? etonogestrel-ethinyl estradiol (NUVARING) 0.12-0.015 MG/24HR vaginal ring ??? ibuprofen (ADVIL/MOTRIN) 200 MG tablet ??? SUMAtriptan (IMITREX) 100 MG tablet ??? albuterol (PROAIR HFA/PROVENTIL HFA/VENTOLIN HFA) 108 (90 Base) MCG/ACT inhaler ??? albuterol (PROVENTIL) (2.5 MG/3ML) 0.083% neb solution ??? fluticasone (FLOVENT DISKUS) 50 MCG/BLIST AEPB No current facility-administered medications for this visit. ROS: As above per HPI Objective: BP 110/66 (BP Location: Right arm, Patient Position: Chair, Cuff Size: Adult Regular) Pulse 88 Temp 98.6 ??F (37 ??C) (Oral) Resp 16 Ht 1.6 m (5' 3) Wt 51.3 kg (113 lb) SpO2 100% BMI 20.02 kg/m?? , Body mass index is 20.02 kg/m??. Gen: NAD, well-nourished, sitting in chair comfortably HEENT: EOMI, sclera anicteric, Head normocephalic, ; nares patent; moist mucous membranes, no hyphemia , hyperemia, injection seen. Left pupil is larger in diameter by several mm. Both eyes are reactive to light. No eye nystagmus. No obvious swelling of eyelid and no ptosis. Neck: trachea midline, no thyromegaly CV: Hemodynamically stable Skin: no obvious rashes or abnormalities Psych: Euthymic, linear thoughts, normal rate of speech Assessment & Plan: Joel Amos, 23 year old female who presents with: Pupil asymmetry Eye discomfort, left Acute presentation of a blown left pupil with no history of trauma, contact with harsh chemicals andno previous history of eye disorders. Only new medication in recent history is abilify but was started months ago and is not a known causative agent. Discomfort is significant. I discussed with financial operations consultant in- house who recommended ED referral for thorough examination by specialist. Patient was referred to [facility] but states the city driving makes her and her fiancee anxious - [facility] Her fiancee will drive her by ground transport to hospital. Peculiar presentation: glaucoma/iritis should be considered. I doubt herpes/scleritis/conjunctivitis/Luis's as a cause. Patient does have a hx of illicit drug (per medical chart) use but had normal mentation and appropriate thought processes and speech today Jong Henderson MD [facility] The use of [employer] dictation services may have been used to construct the content in this note; any grammatical or spelling errors are non- intentional. Please contact the author of this note directly if you are in need of any clarification. documented in this encounter Plan of Treatment Not on filedocumented as of this encounter Visit Diagnoses Diagnosis Pupil asymmetry - Primary Anisocoria Eye discomfort, left documented in this encounter Additional Health Concerns Assessment Noted Time PHQ-9 Depression Total Score: 15 09/16/2018 1:27 PM CS T documented as of this encounter Care Teams Automatic Pad Making Machine Operator Relationship Specialty Start Date End Date Viri Gallardo APRN CNP PCP - General Nurse Practitioner 06/29/17 04/14/20 [address] [facility] [place] [address] Viri Gallardo APRN STUDIO COUCH FRAME BUILDER Assigned PCP 09/12/17 09/16/19 [address] [facility] [place] [address] documented as of this encounter
--- OUTSIDE RECORDS SUMMARY | 2022-09-05 18:55 | XMS_ITS | Encounter Summary ---
:1995 Author Organization [place] Address [address] [place] [address] Care Team Providers Name Role Phone Viri Gallardo APRN, CNP Primary Care Provider [phone] Viri Galladro APRN, CNP Unavailable [phone] Encounter Details Date Type Department Care Team Description 12/23/2018 Travel Social History Tobacco Use Types Packs/Day [...] documented as of this encounter Care Teams Religion Department Chair Relationship Specialty Start Date End Date Viri Gallardo APRN CNP PCP - General Nurse Practitioner 06/29/17 04/14/20 [address] [facility] [place] [address] Viri Gallardo APRN CNP Assigned PCP 09/12/17 09/16/19 [address] [facility] [place] [address] documented as of this encounter
--- OUTSIDE RECORDS SUMMARY | 2022-09-05 18:55 | XMS_ITS | Encounter Summary ---
:1995 Author Organization [place] Address [address] [place] [address] Care Team Providers Name Role Phone Viri Gallardo APRN, CNP Primary Care Provider [phone] Viri Gallardo APRN, CNP Unavailable [phone] Encounter Details Date Type Department Care Team Description 01/28/2019 Travel Social History Tobacco Use Types Packs/Day [...] documented as of this encounter Care Teams Package Collector Relationship Specialty Start Date End Date Viri Gallardo APRN CNP PCP - General Nurse Practitioner 06/29/17 04/14/20 [address] [facility] [place] [address] Viri Gallardo APRN CNP Assigned PCP 09/12/17 09/16/[address] [place] [address] documented as of this encounter
--- OUTSIDE RECORDS SUMMARY | 2022-09-05 18:55 | XMS_ITS | Encounter Summary ---
:1995 Author Organization [place] Address [address] [place] [address] Care Team Providers Name Role Phone Viri Gallardo APRN, CNP Primary Care Provider [phone] Viri Gallardo APRN, CNP Unavailable [phone] Encounter Details Date Type Department Care Team Description 07/21/2019 Travel Social History Tobacco Use Types Packs/Day [...] documented as of this encounter Care Teams Screw Machine Hand Relationship Specialty Start Date End Date Viri Gallardo APRN CNP PCP - General Nurse Practitioner 06/29/17 04/14/20 [address] [facility] [place] [address] Viri Gallardo APRN CNP Assigned PCP 09/12/17 09/16/[address] [place] [address] documented as of this encounter
--- OUTSIDE RECORDS SUMMARY | 2022-09-05 18:55 | XMS_ITS | Encounter Summary ---
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 Patient Education Migraine Headache This often severe type of headache is different from other types of headaches in that symptoms otherthan pain occur with the headache. Nausea and vomiting, lightheadedness, sensitivity to light (photophobia), and other visual disturbances are common migraine symptoms.??The pain may last from a few hours to several days. It is not clear why migraines occur but certain factors called ???triggers?? can raise the risk of having a migraine attack.??A migraine may be triggered by emotional stress??or depression, or by hormone changes during the menstrual cycle. Other triggers include control pills, overuse of migraine medicines, alcohol or caffeine, foods with tyramine (such as aged cheese and wine), eyestrain, weather changes, missed meals,??or too little or too much sleep. Home care Follow these tips when taking care of yourself at home: ?? Don???t drive yourself home if you were given pain medicine for your headache or are having visual symptoms. Instead, have someone else drive you home. Try to sleep when you get home. You should feel much better when you wake up. ?? Cold can help ease migraine symptoms. Put an ice pack on your forehead or at the base of your skull. Put heat on the back of your neck to help ease any neck spasm. ?? Drink only clear liquids or eat a light diet until your symptoms get better. This will help you avoid nausea and vomiting. How to prevent migraines Pay attention to what seems to trigger your headache. Try to avoid the triggers when you can. If youhave frequent headaches, consider keeping a headache diary. In it, write down what you were doing, feeling, or eating in the hours before each headache. Show this to your healthcare provider to help find the cause of your headaches. If stress seems to be a trigger for your headaches, figure out what is causing stress in your life. Learn new ways to handle your stress. Ideas include regular exercise, biofeedback, self-hypnosis, yoga, and meditation. Talk with your healthcare provider to find out more information about managing stress. Many books and digital media are also available on this subject. Tyramine is a substance found in many foods. It can trigger a migraine in some people. These foods contain tyramine: ?? Chocolate ?? Yogurt ?? All cheeses, but especially aged cheeses ?? Smoked or pickled fish and meat, including banks, caviar, bologna, pepperoni, and salami ?? Liver ?? Avocados ?? Bananas ?? Figs ?? Raisins ?? Red wine Try staying away from these foods for 1 to 2 months to see if you have fewer headaches. How to treat future headaches ?? Take time out at the first sign of a headache, if possible. Find a quiet, dark, comfortable placeto sit or lie down. Let yourself relax or sleep. ?? Put an ice pack on your forehead or on the area of greatest pain. A heating pad and massage may help if you are having a muscle spasm and tightness in your neck. ?? If you have been prescribed a medicine to stop a migraine headache, use this at the first warningsign of the headache for best results. First signs may be an aura or pain. ?? If you need to take medicine often for your migraine, talk with your healthcare provider about other ways to prevent your headaches. Follow-up care Follow up with your healthcare provider, or as advised. Talk with your provider if you have frequentheadaches. He or she can figure out a treatment plan. Ask if you can have medicine to take at home the next time you get a bad headache. This may keep you from having to visit the emergency department in the future. You may need to see a headache specialist (neurologist) if you continue to have headaches. When to seek medical advice Call your healthcare provider right away??if any of these occur: ?? Your head pain gets worse, or doesn???t get better within 24 hours ?? You can???t keep liquids down (repeated vomiting) ?? Pain in your sinuses, ears, or throat ?? Fever of 100.4?? F (38?? C) or higher, or as directed by your healthcare provider ?? Stiff neck ?? Extreme drowsiness, confusion, or fainting ?? Dizziness, or dizziness with spinning sensation (vertigo) ?? Weakness in an arm or leg, or on one side of your face ?? Difficulty talking or seeing Date Last Reviewed: 05/11/2016 ?? [id number] [employer]. [address] [place] [address], [place] [address]. All rights reserved. This information is not intended as a substitute for professional medical care. Always follow your healthcare professional's instructions. If you develop severe pain, an acute drop in vision, new flashes or floaters, or worsening eye redness, please contact the Eye Clinic immediately at [phone]. Follow up in 6-12 months, sooner as needed. If you develop any new numbness/tingling/weakness of your arms or legs, or any difficulty walking orspeaking, please go to the Emergency Room immediately. documented in this encounter Progress Notes Sharron Maher MD - 01/28/2019 8:00 AM CDT CC: Pupil changes, headache HPI: 23 y/o F with no POH, presents for eval s/p ED visit at [facility] yesterday. Had been seen for pupil changes, headache, blurry vision OS, and pain with eye movement. She underwent MRI brain, which was negative for any abnormalities due to concern for possible optic neuritis. Pt denies any associated neurologic changes. No recent trauma. No eye drop use. Vision reportedly 20/20 right eye, 20/25 left eye in ED yesterday. Reports blurry vision of acute onset left eye for a few minutes 2 nights ago. Had a headache, thought to be another migraine, at the same time. Took sumatriptan and went to bed. Upon awakening the nextmorning, she noticed her left pupil was dilated. She had some swelling around the left eyelid and pr essure sensation. No flashes/floaters. Denied any diplopia. No preceding trauma. No neck pain. No recent viral illness/prodrome. Hx of migraines and bipolar disorder. Taking sumatriptan and abilify with recent dosing changes for abilify due to fatigue and other side effects. POH: Last eye exam: 2014- Dr. Parsons Prior eye surgery/laser: none CTL wearer: none Glasses: none Fam hx of eye disease: No known fam hx of eye disease Gtts: Previously using OTC anti-allergy drop All: NKDA A/P: 1. Benign unilateral mydriasis 2. Migraine headaches -no signs of abnormalities on exam today; both pupils near equal and reactive in light and dark; no APD -EOM's full with no pain; eyes ortho -constricts appropriately to near reflex each eye -vision 20/20 each eye; DFE normal each eye -color plates full, CVF full each eye -MRI brain at [facility] (01/27/19) - normal. -likely associated with migraine headache; no additional work up required -reviewed return precautions including any neurologic signs/symptoms, decrease in vision, eye pain --> pt to report to ED and/or contact Eye Clinic immediately F/u 6- 12 months, sooner PRN Sharron Maher MD PGY-5, [facility] Fellow Ophthalmology Complete documentation of historical and exam elements from today's encounter can be found in the full encounter summary report (not reduplicated in this progress note). I personally obtained the chiefcomplaint(s) and history of present illness. I confirmed and edited as necessary the review of systems, past medical/surgical history, family history, social history, and examination findings as documented by others; and I examined the patient myself. I personally reviewed the relevant tests, images, and reports as documented above. I formulated and edited as necessary the assessment and plan and discussed the findings and management plan with the patient and family. Sharron Maher MD [employer] Fellow documented in this encounter Nursing Notes Aleena Jeong E - 01/28/2019 8:00 AM CDT Chief Complaints and History of Present Illnesses Patient presents with ??? Consult For Chief Complaint(s) and History of Present Illness(es) Consult For Laterality: left eye Quality: blurred vision Severity: mild Frequency: constantly Course: gradually improving Associated symptoms: Negative for eye pain, redness, dryness, photophobia, vomiting and nausea Treatments tried: no treatments Pain scale: 0/[address] Lopez to r/o optic neuritis after sudden onset of anisocoria + APD LE Yesterday, Pt woke and noted that the LE pupil was much larger than the RE. Vision seemed spottybut today, everything much better and returned almost to normal. Only recent medical change is the start of Ambilify 2wks ago which has followed a tapering schedule from 5mg to 15mg and back down to 5mg. Confirms migraines which are frequent in occurence but states she doesn't typically have spotty vision with migraines. Patient does not wear contacts or glasses. She denies nausea, vomiting, injury, harsh chemicals, or any new drops. PoH: none FoH: none Aleena Jeong COT 8:18 AM January 28, 2019 documented in this encounter Plan of Treatment Not on filedocumented as of this encounter Visit Diagnoses Diagnosis Episodic mydriasis of left eye - Primary Migraine without status migrainosus, not intractable, unspecified migraine type documented in this encounter Additional Health Concerns Assessment Noted Time PHQ-9 Depression Total Score: 15 09/16/2018 1:27 PM CS T documented as of this encounter Care Teams Pencil Maker Relationship Specialty Start Date End Date Viri Gallardo APRN [employer]ATOR [employer] PCP - General Nurse Practitioner 06/29/17 04/14/20 [id number] [facility] [place] [id number] Viri Gallardo APRN GUN PER[employer]ATOR [employer]ADER Assigned PCP 09/12/17 09/16/19 [id number] [facility] [place] [id number] documented as of this encounter
--- OUTSIDE RECORDS SUMMARY | 2022-09-05 18:55 | XMS_ITS | Encounter Summary ---
:1995 Author Organization [facility] Address [address] [place] [address] Care Team Providers Name Role Phone Viri Gallardo APRN, CNP Primary Care Provider [phone] Viri Gallardo APRN SENIOR WATER RESOURCES ENGINEER Unavailable [phone] Reason for Visit Reason Comments Urgent Care Groin Pain Pt is concerned that she has some groing pain bilaterally since yesterday. She has not had a fever. Encounter Details Date Type Department Care Team Description 06/03/2019 Office Visit [facility] Sonya Josse BV (bact erial vaginosis) (Primary Dx); Urgent Care [place] Urbano PA-C [facility] [address] [place] [address] [place] [address] Social History Tobacco Use Types Packs/Day [...] Sign Reading Time Taken Comments Blood Pressure 120/72 06/03/2019 11:47 AM CDT Pulse 76 06/03/2019 11:47 AM CDT Temperature 36.9 ??C (98.4 ??F) 06/03/2019 11:47 AM CDT Respiratory Rate 12 06/03/2019 11:47 AM CDT Oxygen Saturation 97% 06/03/2019 11:47 AM CDT Inhaled Oxygen Concentration - - Weight 55.8 kg (123 lb) 06/03/2019 11:47 AM CDT Height - - Body Mass Index 21.79 05/25/2019 10:48 AM CDT documented in this encounter Patient Instructions Patient InstructionsJosse Hassan PA-C - 06/03/2019 11:30 AM CDT Images from the original note were not included. Patient Education Lymphadenopathy Lymphadenopathy is swelling of the lymph nodes. Lymph nodes are small, handley- shaped glands around thebody. What are lymph nodes? Lymph nodes are part of your immune system. These glands are found in your neck, over your clavicle,armpits, groin, chest, and abdomen. They act as filters for lymph fluid as it flows through your body. Lymph fluid contains white blood cells (lymphocytes) that help the body fight infection and disease.?? Why lymph nodes swell Lymphadenopathy is very common. The glands often enlarge during a viral or bacterial infection. It can happen during a cold, the flu, or strep throat. The nodes may swell in just one area of the body, such as the neck (localized). Or nodes may swell all over the body (generalized). The neck (cervical)lymph nodes are the most common site of lymphadenopathy. What causes lymphadenopathy? cells and fluid build up in the lymph nodes as they help fight infection or disease. This causes them to swell in size. Enlarged lymph nodes are often near the source of infection. This can help to find the cause of an infection. For example, swollen lymph nodes around the jaw may be because of an infection in the teeth or mouth. But lymphadenopathy may also be generalized. This is common in some viral illnesses such as infectious mononucleosis or chickenpox (varicella). Lymphadenopathy can also be caused by: ?? Infection of a lymph node or small group of nodes (lymphadenitis) ?? Cancer ?? Reactions to medicines such as antibiotics and certain blood pressure, gout, and seizure medicines ?? Other health conditions, such as HIV infection, lupus, or sarcoidosis Symptoms of lymphadenopathy Lymphadenopathy can cause symptoms such as: ?? Lumps under the jaw, on the sides or back of the neck, in the armpits, in the groin, or in the chest or belly (abdomen) ?? Pain or tenderness in any of these areas ?? Redness or warmth in any of these areas You may also have symptoms from an infection causing the swollen glands. These symptoms may include fever, sore throat, body aches, or cough. Diagnosing lymphadenopathy Your healthcare provider will ask about your health history and symptoms. He or she will give you a physical exam and check the areas where lymph nodes are enlarged. Your healthcare provider will checkthe size and location of the nodes, and ask how long they have been swollen and if they are painful.Diagnostic tests and referral to specialists may be recommended. They may include: ?? Blood tests. These are done to check for signs of infection and other problems. ?? Urine test. This is also done to check for infection and other problems. ?? Chest X-ray, ultrasound, CT scan, or MRI scans. These tests can show enlarged lymph nodes or other problems. ?? Lymph node biopsy. If lymph nodes are swollen for 3 to 4 weeks, they may be checked with a biopsy. Small samples of lymph node tissue are taken and checked in a lab for signs of cancer. You may be referred to a specialist in blood disorders and cancer (c software engineer and oncologist). Treatment for lymphadenopathy The treatment of enlarged lymph nodes depends on the cause. Enlarged lymph nodes are often harmless and go away without any treatment. Treatment is most often done on the cause of the enlarged nodes and may include: ?? Antibiotic medicine to treat a bacterial infection ?? Incision and drainage of a lymph node for lymphadenitis ?? Other medicines or procedures to treat the cause of the enlarged nodes You may need follow-up exam in 3 to 4 weeks to recheck enlarged nodes. ?? When to call your healthcare provider Call your healthcare provider if you have lymph nodes that are still swollen after 3 to 4 weeks, or as directed by your healthcare provider. Date Last Reviewed: 02/08/2017 ?? [id number] [employer]. [address] [place] [address], [place] [address]. All rights reserved. This information is not intended as a substitute for professional medical care. Always follow your healthcare professional's instructions. documented in this encounter Progress Notes [place] Hassan PA-C - 06/03/2019 11:30 AM CDT Images from the original note were not included. SUBJECTIVE: Joel Amos is a 24 year old female who presents to the clinic today for tender swollen lymph nodes bilateral groin. Onset of rash was 1 day(s) ago. Symptoms are mild and rash seems to be stable. Recent exposure history: none known Associated symptoms include: nothing. Past Medical History: Diagnosis Date ??? Anxiety [...] Outpatient Medications Medication Sig Dispense Refill ??? metroNIDAZOLE (FLAGYL) 500 MG tablet Take 1 tablet (500 mg) by mouth 2 times daily for 7 days 14tablet 0 ??? SUMAtriptan (IMITREX) 100 MG tablet Take [...] of systems negative except as stated above. EXAM: BP 120/72 (BP Location: Right arm, Patient Position: Sitting, Cuff Size: Adult Regular) Pulse 76 Temp 98.4 ??F (36.9 ??C) (Oral) Resp 12 Wt 55.8 kg (123 lb) SpO2 97% BMI 21.79 kg/m?? GENERAL: alert, no acute distress. SKIN: no rash or lesion noted Lymph: bilateral small tender nodes in groin area GENERAL APPEARANCE: healthy, alert and no distress EYES: EOMI, PERRL, conjunctiva clear HENT: ear canals and TM's normal. Nose and mouth without ulcers, erythema or lesions NECK: supple, non-tender to palpation, no adenopathy noted RESP: lungs clear to auscultation - no rales, rhonchi or wheezes CV: regular rates and rhythm, normal S1 S2, no murmur noted ABDOMEN: soft, nontender, no HSM or masses and bowel sounds normal NEURO: Normal strength and tone, sensory exam grossly normal, normal speech and mentation Results for orders placed or performed in visit on 06/03/19 *UA reflex to Microscopic and Culture ([facility] and [facility] (except [place] and [place]) Result Value Ref Range Color Urine Yellow Appearance Urine Slightly Cloudy Glucose Urine Negative NEG^Negative mg/dL Bilirubin Urine Negative NEG^Negative Ketones Urine Negative NEG^Negative mg/dL Specific [place] Urine 1.010 1.003 - 1.035 Blood Urine Negative NEG^Negative pH Urine 7.0 5.0 - 7.0 pH Protein Albumin Urine Negative NEG^Negative mg/dL Urobilinogen Urine 0.2 0.2 - 1.0 EU/dL Nitrite Urine Negative NEG^Negative Leukocyte Esterase Urine Trace (A) NEG^Negative Source Midstream Urine WBC count Result Value Ref Range WBC 6.2 4.0 - 11.0 10e9/L Urine Microscopic Result Value Ref Range WBC Urine 0 - 5 OTO5^0 - 5 /HPF RBC Urine O - 2 OTO2^O - 2 /HPF Squamous Epithelial /LPF Urine Few FEW^Few /LPF Bacteria Urine Few (A) NEG^Negative /HPF Wet prep Result Value Ref Range Specimen Description Vagina Wet Prep No Trichomonas seen Wet Prep Many Clue cells seen (A) Wet Prep No yeast seen Wet Prep Moderate WBC'S seen ASSESSMENT: (N76.0, B96.89) BV (bacterial vaginosis) (primary encounter diagnosis) Plan: metroNIDAZOLE (FLAGYL) 500 MG tablet, Urine Microscopic (R59.1) Lymphadenopathy Plan: *UA reflex to Microscopic and Culture ([facility] and [facility] (except [place] and [place]), Wet prep, WBC count Patient Instructions Patient Education Lymphadenopathy Lymphadenopathy is swelling of the lymph nodes. Lymph nodes are small, handley- shaped glands around thebody. What are lymph nodes? Lymph nodes are part of your immune system. These glands are found in your neck, over your clavicle,armpits, groin, chest, and abdomen. They act as filters for lymph fluid as it flows through your body. Lymph fluid contains white blood cells (lymphocytes) that help the body fight infection and disease.?? Why lymph nodes swell Lymphadenopathy is very common. The glands often enlarge during a viral or bacterial infection. It can happen during a cold, the flu, or strep throat. The nodes may swell in just one area of the body, such as the neck (localized). Or nodes may swell all over the body (generalized). The neck (cervical)lymph nodes are the most common site of lymphadenopathy. What causes lymphadenopathy? cells and fluid build up in the lymph nodes as they help fight infection or disease. This causes them to swell in size. Enlarged lymph nodes are often near the source of infection. This can help to find the cause of an infection. For example, swollen lymph nodes around the jaw may be because of an infection in the teeth or mouth. But lymphadenopathy may also be generalized. This is common in some viral illnesses such as infectious mononucleosis or chickenpox (varicella). Lymphadenopathy can also be caused by: ?? Infection of a lymph node or small group of nodes (lymphadenitis) ?? Cancer ?? Reactions to medicines such as antibiotics and certain blood pressure, gout, and seizure medicines ?? Other health conditions, such as HIV infection, lupus, or sarcoidosis Symptoms of lymphadenopathy Lymphadenopathy can cause symptoms such as: ?? Lumps under the jaw, on the sides or back of the neck, in the armpits, in the groin, or in the chest or belly (abdomen) ?? Pain or tenderness in any of these areas ?? Redness or warmth in any of these areas You may also have symptoms from an infection causing the swollen glands. These symptoms may include fever, sore throat, body aches, or cough. Diagnosing lymphadenopathy Your healthcare provider will ask about your health history and symptoms. He or she will give you a physical exam and check the areas where lymph nodes are enlarged. Your healthcare provider will checkthe size and location of the nodes, and ask how long they have been swollen and if they are painful.Diagnostic tests and referral to specialists may be recommended. They may include: ?? Blood tests. These are done to check for signs of infection and other problems. ?? Urine test. This is also done to check for infection and other problems. ?? Chest X-ray, ultrasound, CT scan, or MRI scans. These tests can show enlarged lymph nodes or other problems. ?? Lymph node biopsy. If lymph nodes are swollen for 3 to 4 weeks, they may be checked with a biopsy. Small samples of lymph node tissue are taken and checked in a lab for signs of cancer. You may be referred to a specialist in blood disorders and cancer (c software engineer and oncologist). Treatment for lymphadenopathy The treatment of enlarged lymph nodes depends on the cause. Enlarged lymph nodes are often harmless and go away without any treatment. Treatment is most often done on the cause of the enlarged nodes and may include: ?? Antibiotic medicine to treat a bacterial infection ?? Incision and drainage of a lymph node for lymphadenitis ?? Other medicines or procedures to treat the cause of the enlarged nodes You may need follow-up exam in 3 to 4 weeks to recheck enlarged nodes. ?? When to call your healthcare provider Call your healthcare provider if you have lymph nodes that are still swollen after 3 to 4 weeks, or as directed by your healthcare provider. Date Last Reviewed: 02/08/2017 ?? [id number] [employer]. [address] [place] [address]. All rights reserved. This information is not intended as a substitute for professional medical care. Always follow your healthcare professional's instructions. documented in this encounter Nursing Notes Patsy Bauer RN - 06/03/2019 11:30 AM CDT Chief Complaint Patient presents with ??? Urgent Care ??? Groin Pain Pt is concerned that she has some groing pain bilaterally since yesterday. She has not had a fever. Initial BP 120/72 (BP Location: Right arm, Patient Position: Sitting, Cuff Size: Adult Regular) Pulse 76 Temp 98.4 ??F (36.9 ??C) (Oral) Resp 12 Wt 55.8 kg (123 lb) SpO2 97% BMI 21.79 kg/m?? Estimated body mass index is 21.79 kg/m?? as calculated from the following: Height as of 05/25/19: 1.6 m (5' 3). Weight as of this encounter: 55.8 kg (123 lb).. BP completed using cuff size: regular Patsy Bauer R.N. documented in this encounter Plan of Treatment Not on filedocumented as of this encounter Procedures Procedure Name Priority Date/Time Associated Diagnosis Comme nts URINE MICROSCOPIC Routine 06/03/2019 12:00 BV (bacterial Resul ts for this PM CDT vaginosis) procedure are i n the results section. UA MACROSCOPIC WITH Routine 06/03/2019 12:00 Lymphadenopathy R esults for this REFLEX TO PM CDT procedure are i n MICROSCOPIC AND the results CULTURE section. WET PREPARATION Routine 06/03/2019 12:00 Lymphadenopathy Resul ts for this PM CDT procedure are i n the results section. WBC COUNT Routine 06/03/2019 11:55 Lymphadenopathy Results for this AM CDT procedure are i n the results section. documented in this encounter Results (ABNORMAL) Urine Microscopic (06/03/2019 12:00 PM CDT) P athologist Signature WBC Urine 0 - 5 OTO5^0 - 5 06/03/2019 [facility] /HPF 12:36 PM CDT [facility] [place] RBC Urine O - 2 OTO2^O - 2 06/03/2019 [facility] /HPF 12:36 PM CDT [facility] [place] Squamous Few FEW^Few 06/03/2019 [facility] Epithelial /LPF /LPF 12:36 PM CDT [facility] [place] AN Urine Bacteria Urine Few (A) NEG^Negati 06/03/2019 [facility] ve /HPF 12:36 PM CDT [facility] [place] Specimen Anatomical Collection Method Collection Time Receive d Time (Source) Location / / Volume Laterality 06/03/2019 12:00 06/03/2019 PM CDT 12:01 PM CDT Josse Hassan PA-C LAB - URINE ORDERABLES Performing Organization Address [facility] [place]/[facility]/ZIP Code Phon e Number [facility] [address] [place] [address] [phone] (ABNORMAL) Wet prep (06/03/2019 12:00 PM CDT) Patholo gist Method Time Signature Specimen Vagina [facility] Description [facility] [place] Wet Prep No Trichomonas 06/03/2019 [facility] seen 12:27 PM CLINICS CDT [place] Wet Prep Many 06/03/2019 [facility] Clue cells seen 12:27 PM CLINICS (A) CDT [place] Wet Prep No yeast seen 06/03/2019 [facility] 12:27 PM CLINICS CDT [place] Wet Prep Moderate 06/03/2019 [facility] WBC'S seen 12:27 PM CLINICS CDT [place] Specimen Anatomical Collection Method Collection Time Receive d Time (Source) Location / / Volume Laterality Specimen from 06/03/2019 12:00 06/03/2019 vagina PM CDT 12:01 PM CDT (specimen) Josse Hassan PA-C LAB - MICRO GENERAL ORDE RABLES Performing Organization Address [facility] [place]/[facility]/ZIP Code Phon e Number [facility] [address] [place] [address] [phone] (ABNORMAL) *UA reflex to Microscopic and Culture ([facility] [facility] [place] [facility] (06/03/2019 12:00 PM CDT) Patholo gist Method Time Signature Color Urine Yellow 06/03/2019 [facility] 12:36 PM CLINICS [facility] [place] Appearance Urine Slightly 06/03/2019 [facility] Cloudy 12:36 PM CLINICS CD[facility] [place] Glucose Urine Negative NEG^Negat 06/03/2019 [facility] herrera mg/dL 12:36 PM CLINICS CDT [place] Bilirubin Urine Negative NEG^Negat 06/03/2019 [facility] herrera 12:36 PM CLINICS CD[facility] [place] Ketones Urine Negative NEG^Negat 06/03/2019 [facility] herrera mg/dL 12:36 PM CLINICS CD[facility] [place] Specific [place] 1.010 1.003 - 06/03/2019 [facility] Urine 1.035 12:36 PM CLINICS CD[facility] [place] Blood Urine Negative NEG^Negat 06/03/2019 [facility] herrera 12:36 PM [facility] CDT [place] pH Urine 7.0 5.0 - 7.0 06/03/2019 [facility] pH 12:36 PM [facility] CDT [place] Protein Albumin Negative NEG^Negat 06/03/2019 [facility] Urine herrera mg/dL 12:36 PM CLINICS CD[facility] [place] Urobilinogen 0.2 0.2 - 1.0 06/03/2019 [facility] Urine EU/dL 12:36 PM [facility] CDT [place] Nitrite Urine Negative NEG^Negat 06/03/2019 [facility] herrera 12:36 PM [facility] CDT [place] Leukocyte Trace (A) NEG^Negat 06/03/2019 [facility] Esterase Urine herrera 12:36 PM [facility] CDT [place] Source Midstream 06/03/2019 [facility] Urine 12:02 PM [facility] CDT [place] Specimen (Source) Anatomical Collection Method Collection Time Re ceived Time Location / / Volume Laterality Examination of 06/03/2019 12:00 9 midstream urine PM CDT 12:01 PM CDT specimen (procedure) Josse Hassan PA-C LAB - URINE ORDERABLES Performing Organization Address City/[facility]/ZIP Code Phon e Number [facility] [address] [place] [address] [phone] WBC count (06/03/2019 11:55 AM CDT) P athologist Signature WBC 6.2 4.0 - 11.0 06/03/2019 [facility] 10e9/L 12:28 PM CDT [facility]IN[facility] [place] Specimen Anatomical Collection Method Collection Time Receive d Time (Source) Location / / Volume Laterality Blood specimen 06/03/2019 11:55 9 (specimen) AM CDT 11:56 AM CDT Josse Hassan PA-C LAB - BLOOD ORDERABLES Performing Organization Address City/[facility]/ZIP Code Phon e Number [facility] [address] [place] [phone] documented in this encounter Visit Diagnoses Diagnosis BV (bacterial vaginosis) - Primary Vaginitis and vulvovaginitis, unspecifie d Lymphadenopathy Enlargement of lymph nodes documented in this encounter Additional Health Concerns Assessment Noted Time PHQ-9 Depression Total Score: 15 09/16/2018 1:27 PM CS T documented as of this encounter Care Teams [employer] [facility] Agent Relationship Specialty Start Date End Date Viri Gallardo APRN SENIOR WATER RESOURCES ENGINEER PCP - General Nurse Practitioner 06/29/17 04/14/20 [address] [facility] [place] [address] Viri Gallardo APRN SENIOR WATER RESOURCES ENGINEER Assigned PCP 09/12/17 09/16/[address] [place] [address] [place] [id number] documented as of this encounter
--- OUTSIDE RECORDS SUMMARY | 2022-09-05 18:55 | XMS_ITS | Encounter Summary ---
:1995 Author Organization [facility] Address [address] [place] [address] Care Team Providers Name Role Phone Viri Gallardo APRN, CNP Primary Care Provider [phone] Viri Gallardo APRN MACHINE FORMER Unavailable [phone] Reason for Visit Reason Comments Urgent Care UTI poss UTI Encounter Details Date Type Department Care Team Description 06/28/2019 Office Visit [facility] Josse Hassan BV (bact erial vaginosis) (Primary Dx); Urgent Care Jesu Urbano PA-C Dysuria [address] [facility] [address] [place] [address] [place] [id number] Social History Tobacco Use Types Packs/Day [...] Sign Reading Time Taken Comments Blood Pressure 127/81 06/28/2019 12:21 PM CDT Pulse 68 06/28/2019 12:21 PM CDT Temperature 36.9 ??C (98.4 ??F) 06/28/2019 12:21 PM CDT Respiratory Rate 20 06/28/2019 12:21 PM CDT Oxygen Saturation 98% 06/28/2019 12:21 PM CDT Inhaled Oxygen Concentration - - Weight 55.8 kg (123 lb) 06/28/2019 12:21 PM CDT Height - - Body Mass Index 21.79 05/25/2019 10:48 AM CDT documented in this encounter Patient Instructions Patient Josse Warren PA-C - 06/28/2019 12:15 PM CDT Images from the original note were not included. Patient Education Bacterial Vaginosis You have a vaginal infection called bacterial vaginosis (BV). Both good and bad bacteria are presentin a healthy vagina. BV occurs when these bacteria get out of balance. The number of bad bacteria increase. And the number of good bacteria decrease. Although BV is associated with sexual activity, it is not a sexually transmitted disease. BV may or may not cause symptoms. If symptoms do occur, they can include: ?? Thin, urbano, milky-white, or sometimes green discharge ?? Unpleasant odor or ???fishy?? smell ?? Itching, burning, or pain in or around the vagina It is not known what causes BV, but certain factors can make the problem more likely. This can include: ?? Douching ?? Having sex with a new partner ?? Having sex with more than one partner BV will sometimes go away on its own. But treatment is usually recommended. This is because untreated BV can increase the risk of more serious health problems such as: ?? Pelvic inflammatory disease (PID) ?? delivery (giving to a baby early if you???re ) ?? HIV and certain other sexually transmitted diseases (STDs) ?? Infection after surgery on the reproductive organs Home care General care ?? BV is most often treated with medicines called antibiotics. These may be given as pills or as a vaginal cream.??If antibiotics are prescribed, be sure to use them exactly as directed. Also, be sure to complete all of the medicine, even if your symptoms go away. ?? Don't douche or having sex during treatment. ?? If you have sex with a female partner, ask your healthcare provider if she should also be treated. Prevention ?? Don't douche. ?? Don't have sex. If you do have sex, then take steps to lower your risk: ? Use condoms when having sex. ? Limit the number of sexual partners you have. Follow-up care Follow up with your healthcare provider, or as advised. When to seek medical advice Call your healthcare provider right away if: ?? You have a fever of??100.4??F (38??C)??or higher, or as directed by your provider. ?? Your symptoms worsen, or they don???t go away within a few days of starting treatment. ?? You have new pain in the lower belly??or pelvic region. ?? You have side effects that bother you or a reaction to the pills or cream you???re prescribed. ?? You or any partners you have sex with have new symptoms, such as a rash, joint pain, or sores. Date Last Reviewed: 07/11/2017 ?? [id number] [employer]. [address] [place] [address]. All rights reserved. This information is not intended as a substitute for professional medical care. Always follow your healthcare professional's instructions. documented in this encounter Progress Notes Josse Hassan PA-C - 06/28/2019 12:15 PM CDT Images from the original note were not included. SUBJECTIVE: Joel Amos is a 24 year old female who presents today for a possible UTI. Symptoms of dysuria, frequency and burning have been going on for 3week(s). Hematuria no. Some improvement, last 4 days have been worst. There is no history of fever, chills, nausea or vomiting. Increased thick white discharge, odor. This patient does have a history of urinary tract infections. Patient denies long duration, rigors, flank pain, temperature > 101 degrees F., Vomiting, significant nausea or diarrhea, taking Coumadin and GFR less than 30 within the last year. Past Medical History: Diagnosis Date ??? Anxiety [...] Outpatient Medications Medication Sig Dispense Refill ??? ibuprofen (ADVIL/MOTRIN) 200 MG tablet Take 2 tablets (400 mg) by mouth every 6 hours as needed for pain (Patient not taking: Reported on 06/02/2019) 60 tablet 0 ??? SUMAtriptan (IMITREX) 100 MG tablet Take 1 tablet (100 mg) by mouth at onset of headache for migraine May repeat in 2 hours. Max 2 tablets/24 hours. (Patient not taking: Reported on 06/28/2019) 18 tablet 3 Social History Tobacco Use ??? Smoking status: Former Smoker Packs/day: 0.25 ??? Smokeless tobacco: Never Used ??? Tobacco comment: vape Substance Use Topics ??? Alcohol use: Yes Alcohol/week: 0.0 oz Comment: states I don't even know re how many a week ROS: 10 point ROS negative except as listed above OBJECTIVE: BP 127/81 Pulse 68 Temp 98.4 ??F (36.9 ??C) Resp 20 Wt 55.8 kg (123 lb) SpO2 98% BMI 21.79 kg/m?? GENERAL APPEARANCE: healthy, alert and no distress RESP: lungs clear to auscultation - no rales, rhonchi or wheezes CV: regular rates and rhythm, normal S1 S2, no murmur noted BACK: No CVA tenderness SKIN: no suspicious lesions or rashes Results for orders placed or performed in visit on 06/28/19 UA reflex to Microscopic and Culture Result Value Ref Range Color Urine Yellow Appearance Urine Clear Glucose Urine Negative NEG^Negative mg/dL Bilirubin Urine Negative NEG^Negative Ketones Urine Negative NEG^Negative mg/dL Specific [place] Urine 1.015 1.003 - 1.035 Blood Urine Negative NEG^Negative pH Urine 7.5 (H) 5.0 - 7.0 pH Protein Albumin Urine Negative NEG^Negative mg/dL Urobilinogen Urine 0.2 0.2 - 1.0 EU/dL Nitrite Urine Negative NEG^Negative Leukocyte Esterase Urine Trace (A) NEG^Negative Source Midstream Urine Urine Microscopic Result Value Ref Range WBC Urine 0 - 5 OTO5^0 - 5 /HPF RBC Urine O - 2 OTO2^O - 2 /HPF Squamous Epithelial /LPF Urine Few FEW^Few /LPF Bacteria Urine Few (A) NEG^Negative /HPF Wet prep Result Value Ref Range Specimen Description Vagina Wet Prep No Trichomonas seen Wet Prep No yeast seen Wet Prep No WBC's seen Wet Prep Many Clue cells seen (A) ASSESSMENT: (N76.0, B96.89) BV (bacterial vaginosis) (primary encounter diagnosis) Comment: recurrent Plan: metroNIDAZOLE (METROGEL) 0.75 % vaginal gel Follow up with primary care (R30.0) Dysuria Plan: Wet prep, UA reflex to Microscopic and Culture, Urine Microscopic Follow up with PCP if symptoms worsen or fail to improve Patient Instructions Patient Education Bacterial Vaginosis You have a vaginal infection called bacterial vaginosis (BV). Both good and bad bacteria are presentin a healthy vagina. BV occurs when these bacteria get out of balance. The number of bad bacteria increase. And the number of good bacteria decrease. Although BV is associated with sexual activity, it is not a sexually transmitted disease. BV may or may not cause symptoms. If symptoms do occur, they can include: ?? Thin, urbano, milky-white, or sometimes green discharge ?? Unpleasant odor or ???fishy?? smell ?? Itching, burning, or pain in or around the vagina It is not known what causes BV, but certain factors can make the problem more likely. This can include: ?? Douching ?? Having sex with a new partner ?? Having sex with more than one partner BV will sometimes go away on its own. But treatment is usually recommended. This is because untreated BV can increase the risk of more serious health problems such as: ?? Pelvic inflammatory disease (PID) ?? delivery (giving to a baby early if you???re ) ?? HIV and certain other sexually transmitted diseases (STDs) ?? Infection after surgery on the reproductive organs Home care General care ?? BV is most often treated with medicines called antibiotics. These may be given as pills or as a vaginal cream.??If antibiotics are prescribed, be sure to use them exactly as directed. Also, be sure to complete all of the medicine, even if your symptoms go away. ?? Don't douche or having sex during treatment. ?? If you have sex with a female partner, ask your healthcare provider if she should also be treated. Prevention ?? Don't douche. ?? Don't have sex. If you do have sex, then take steps to lower your risk: ? Use condoms when having sex. ? Limit the number of sexual partners you have. Follow-up care Follow up with your healthcare provider, or as advised. When to seek medical advice Call your healthcare provider right away if: ?? You have a fever of??100.4??F (38??C)??or higher, or as directed by your provider. ?? Your symptoms worsen, or they don???t go away within a few days of starting treatment. ?? You have new pain in the lower belly??or pelvic region. ?? You have side effects that bother you or a reaction to the pills or cream you???re prescribed. ?? You or any partners you have sex with have new symptoms, such as a rash, joint pain, or sores. Date Last Reviewed: 07/11/2017 ?? [id number] [employer]. [address] [place] [address]. All rights reserved. This information is not intended as a substitute for professional medical care. Always follow your healthcare professional's instructions. documented in this encounter Plan of Treatment Not on filedocumented as of this encounter Procedures Procedure Name Priority Date/Time Associated Comments Diagnosis URINE MICROSCOPIC Routine 06/28/2019 12:26 Dysuria Result s for this PM CDT procedure are i n the results section. UA MACROSCOPIC WITH Routine 06/28/2019 12:26 Dysuria Resu lts for this REFLEX TO MICROSCOPIC PM CDT proced ure are in AND CULTURE the results section. WET PREPARATION Routine 06/28/2019 12:25 Dysuria Results for this PM CDT procedure are i n the results section. documented in this encounter Results (ABNORMAL) Urine Microscopic (06/28/2019 12:26 PM CDT) P athologist Signature WBC Urine 0 - 5 OTO5^0 - 5 06/28/2019 [facility] /HPF 12:38 PM CDT CLINICS [place] RBC Urine O - 2 OTO2^O - 2 06/28/2019 [facility] /HPF 12:38 PM CDT CLIN[facility] [place] Squamous Few FEW^Few 06/28/2019 [facility] Epithelial /LPF /LPF 12:38 PM CDT [facility] Urine Bacteria Urine Few (A) NEG^Negati 06/28/2019 [place] ve /HPF 12:38 PM CDT CLINICS [place] Specimen Anatomical Collection Method Collection Time Receive d Time (Source) Location / / Volume Laterality 06/28/2019 12:26 06/28/2019 PM CDT 12:27 PM CDT Josse Hassan PA-C LAB - URINE ORDERABLES Performing Organization Address City/State/ZIP Code Phon e Number [facility] [place] [address] [place] [address] (ABNORMAL) UA reflex to Microscopic and Culture (06/28/2019 12:26 PM CDT) Patholo gist Method Time Signature Color Urine Yellow 06/28/2019 [facility] 12:38 PM CLINICS CDT [place] Appearance Urine Clear 06/28/2019 [facility] 12:38 PM CLINICS CDT [place] Glucose Urine Negative NEG^Negat 06/28/2019 [facility] herrera mg/dL 12:38 PM CLINICS CDT [place] Bilirubin Urine Negative NEG^Negat 06/28/2019 [facility] herrera 12:38 PM CLINICS CDT [place] Ketones Urine Negative NEG^Negat 06/28/2019 [facility] herrera mg/dL 12:38 PM CLINICS CDT [place] Specific [place] 1.015 1.003 - 06/28/2019 [facility] Urine 1.035 12:38 PM CLINICS CDT [place] Blood Urine Negative NEG^Negat 06/28/2019 [facility] herrera 12:38 PM CLINICS CDT [place] pH Urine 7.5 (H) 5.0 - 7.0 06/28/2019 [place] pH 12:38 PM CLINICS CDT [place] Protein Albumin Negative NEG^Negat 06/28/2019 [facility] Urine herrera mg/dL 12:38 PM CLINICS CDT [place] Urobilinogen 0.2 0.2 - 1.0 06/28/2019 [facility] Urine EU/dL 12:38 PM CLINICS CDT [place] Nitrite Urine Negative NEG^Negat 06/28/2019 [facility] herrera 12:38 PM CLINICS CDT [place] Leukocyte Trace (A) NEG^Negat 06/28/2019 [facility] Esterase Urine herrera 12:38 PM CLINICS CDT [facility] Source Midstream 06/28/2019 [facility] Urine 12:27 PM CLINICS CDT [place] Specimen (Source) Anatomical Collection Method Collection Time Re ceived Time Location / / Volume Laterality Examination of 06/28/2019 12:26 9 midstream urine PM CDT 12:27 PM CDT specimen (procedure) Josse Hassan PA-C LAB - URINE ORDERABLES Performing Organization Address City/[facility]/ZIP Code Phon e Number [facility] [address] [place] [address] [phone] (ABNORMAL) Wet prep (06/28/2019 12:25 PM CDT) [facility] Method Time Signature Specimen Vagina [place] Description [facility]IN[facility] [place] Wet Prep No [facility]ich[facility] 12[facility]37 [facility] [place] Wet Prep No yeast seen 06/28/2019 [facility] 12:37 PM CLINICS CDT [place] Wet Prep No WBC's seen 06/28/2019 [facility] 12:37 PM CLINICS CDT [place] Wet Prep Many 06/28/2019 [facility] Clue cells seen 12:37 PM CLINICS (A) CDT [place] Specimen Anatomical Collection Method Collection Time Receive d Time (Source) Location / / Volume Laterality Specimen from 06/28/2019 12:25 06/28/2019 vagina PM CDT 12:26 PM CDT (specimen) Josse Hassan PA-C LAB - MICRO GENERAL ORDE RABLES Performing Organization Address City/[facility]/ZIP Code Phon e Number [facility] [address] [place] [phone] documented in this encounter Visit Diagnoses Diagnosis BV (bacterial vaginosis) - Primary Vaginitis and vulvovaginitis, unspecifie d Dysuria documented in this encounter Additional Health Concerns Assessment Noted Time PHQ-9 Depression Total Score: 15 09/16/2018 1:27 PM CS T documented as of this encounter Care Teams Curb Setter Relationship Specialty Start Date End Date Viri Gallardo APRN CNP PCP - General Nurse Practitioner 06/29/17 04/14/20 [address] [facility] [place] [address] Viri Gallardo APRN CNP Assigned PCP 09/12/17 09/16/19 [address] [facility] [place] [phone] documented as of this encounter
--- OUTSIDE RECORDS SUMMARY | 2022-09-05 18:56 | XMS_ITS | Encounter Summary ---
:1995 Author Organization [facility] Address [address] [place] [address] Care Team Providers Name Role Phone Viri Gallardo APRN, CNP Primary Care Provider [phone] Viri Gallardo APRN DIRECTOR TRANSITION Unavailable [phone] Ailyn Medina RN Unavailable Unavailable Viri Gallardo APRN DIRECTOR TRANSITION Unavailable [phone] Reason for Visit Reason Comments skin infection Encounter Details Date Type Department Care Team Description 07/07/2018 - Emergency [facility] Wilmer Ibanez MD Cellulitis of lower 07/08/2018 [facility] Emergency [facility] leg Dept [place] [address] [facility] [address] [facility] [address] [id number] [place] [address] [phone] (Wo rk) Social History Tobacco Use Types [...] Sign Reading Time Taken Comments Blood Pressure 116/82 07/08/2018 12:28 AM CDT Pulse 86 07/07/2018 11:18 PM CDT Temperature 37.2 ??C (98.9 ??F) 07/07/2018 11:18 PM CDT Respiratory Rate 20 07/07/2018 11:18 PM CDT Oxygen Saturation 96% 07/08/2018 12:28 AM CDT Inhaled Oxygen Concentration - - Weight 54.4 kg (120 lb) 07/07/2018 11:18 PM CDT Height 160 cm (5' 3) 07/07/2018 11:18 PM CDT Body Mass Index 21.26 07/07/2018 11:18 PM CDT documented in this encounter Discharge Instructions Discharge InstructionsRosas Ibanez MD - 07/08/2018 12:02 AM CDT Discharge Instructions Cellulitis Cellulitis is an infection of the skin that occurs when bacteria enter the skin. Symptoms are generally redness, swelling, warmth and pain. Your infection appeared to be appropriate to treat at home with antibiotics. However, sometimes your infection may be worse than it seemed at first, or may worsenwith time. If you have new or worse symptoms, you may need to be seen again in the Emergency Department or by your primary provider. Generally, every Emergency Department visit should have a follow-up clinic visit with either a primary or a specialty clinic/provider. Please follow-up as instructed by your emergency provider today. Return to the Emergency Department if: ??? The redness, pain, or swelling gets a lot worse. If the red area was marked, return if it is redsignificantly beyond the marked area. ??? You are unable to get your antibiotics, or are vomiting (throwing up) these pills, or you cannottake them. ??? You are feeling more ill, weak or lightheaded. ? ? You start to run a new fever (temperature >101??F). ??? Anything else about the infection worries or concerns you. Treatment: ??? Start your antibiotics right away, and take them as prescribed. Be sure to finish the whole prescription, even if you are better. ??? Apply a heating pad, warm packs, or warm water soaks to the infected area for 15 minutes at a time, at least 3 times a day. Do not use a heating pad on your feet or legs if you have diabetes. Do not sleep with a heating pad on, since this can cause gabriel or skin injury. ??? Rest your injured area for at least 1-2 days. After that you may start using your extremity again as long as there is not too much pain. ??? Raise the injured area above the level of your heart as much as possible in the first 1-2 days. ??? Tylenol?? (acetaminophen), Motrin?? (ibuprofen), or Advil?? (ibuprofen) may help may help reducepain and fever and may help you feel more comfortable. Be sure to read and follow the package directions, and ask your provider if you have questions. If you were given a prescription for [...] Sig Dispensed Refills Start Date End Date acetaminophen (TYLENOL) Take 1 tablet (500 60 tablet 0 06/1207/15/2018 500 MG tablet mg) by mouth every 6 hours as needed for pain albuterol (2.5 MG/3ML) Take 1 vial (2.5 mg) 25 vial 0 09/201809/16/2018 0.083% neb by nebulization solutionIndications: every 6 hours as Cough needed for shortness of breath / dyspnea or wheezing albuterol (PROAIR Inhale 2 puffs into 1 Inhaler 0 8 09/16/2018 HFA/PROVENTIL the lungs every 6 HFA/VENTOLIN HFA) 108 hours as needed for (90 Base) MCG/ACT shortness of breath InhalerIndications: / dyspnea or Cough wheezing cephALEXin (KEFLEX) 500 Take 1 capsule (500 28 capsule 0 07/14/2018 MG capsule mg) by mouth 4 times daily for 7 days cyclobenzaprine Take 1 tablet (10 14 tablet 1 05/10/2018 (FLEXERIL) 10 MG mg) by mouth nightly tabletIndications: Rib as needed for muscle pain on right side spasms fluticasone (FLOVENT Inhale 1 puff into 120 Inhaler 0 201701/28/2019 DISKUS) 50 MCG/BLIST the lungs every 12 AEPBIndications: Cough hours hydrOXYzine (ATARAX) 25 Take 1-2 tablets 60 tablet 1 201707/14/2018 MG tabletIndications: (25-50 mg) by mouth Moderate bipolar II every 6 hours as disorder, most recent needed for itching episode major depressive (H) ibuprofen Take 2 tablets (400 60 tablet 0 07/08/201808/17 (ADVIL/MOTRIN) 200 MG mg) by mouth every 6 tablet hours as needed for pain SUMAtriptan (IMITREX) Take 1 tablet (100 18 tablet 3 201708/17/2019 100 MG mg) by mouth at tabletIndications: onset of headache Intractable chronic for migraine May migraine without aura repeat in 2 hours. and without status Max 2 tablets/24 migrainosus hours. triamcinolone (KENALOG) Apply topically 3 0 07/14/2018 0.1 % lotion times daily varenicline (CHANTIX Take 0.5 mg tab 53 tablet 0 04/07/2018 07/14/2018 STARTING MONTH MARNIE) 0.5 daily for 3 days, MG X 11 & 1 MG X 42 then 0.5 mg tab tabletIndications: twice daily for 4 Encounter for tobacco days, then 1 mg use cessation twice daily. counseling varenicline (CHANTIX) 1 Take 1 tablet (1 mg) 56 tablet 2 07/14/2018 MG tabletIndications: by mouth 2 times Encounter for tobacco daily use cessation counseling documented as of this encounter ED Notes Xuan Presley RN - 07/08/2018 12:38 AM CDT AVS reviewed. Марина Varghese RN - 07/07/2018 11:19 PM CDT Pt to ER with c/o infection to tattoo on left thigh area Rosas Ibanez MD - 07/07/2018 11:15 PM CDT History Chief Complaint: Left thigh pain, swelling, and redness HPI Joel Amos is a 23 year old female who presents to the emergency department today for evaluation of a left thigh pain, swelling, and redness. The patient reports that on 07/04/18 she had shading done on a tattoo on her left thigh. Since then she notes the development and subsequent worsening of pain exacerbated with walking, redness, swelling, and mild numbness to the left thigh. Additionally, she reports a lump and associated pain in her left groin. The patient endorses a history of additionaltattoos and notes that she has never had a similar reaction. She denies any fevers, emesis, or productive cough. Of note, the patient's last period ended today. 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 No pertinent surgical history. Family History: Mother: hypertension Maternal Grandmother: diabetes, hypertension Maternal Grandfather: hypertension, diabetes Paternal Uncle: cancer Social History: Smoking Status: Former Smoker Packs/day: 0.25 Smokeless Tobacco: Never Used Alcohol Use: Positive Marital Status: Single Review of Systems Constitutional: Negative for fever. Respiratory: Negative for cough. Gastrointestinal: Negative for vomiting. Musculoskeletal: Lump and pain in left groin Skin: Tattoo on left thigh with swelling, redness, pain All other systems reviewed and are negative. Physical Exam Patient Vitals for the past 24 hrs: BP Temp Pulse Resp SpO2 Height Weight 07/08/18 0028 116/82 - - - 96 % - - 07/07/18 2355 - - - - 97 % - - 07/07/18 2354 121/78 - - - - - - 07/07/18 2318 (!) 147/100 98.9 ??F (37.2 ??C) 86 20 100 % 1.6 m (5' 3) 54.4 kg (120 lb) Physical Exam VS: Reviewed per above HENT: Mucous membranes moist EYES: sclera anicteric CV: Rate as noted, regular rhythm. RESP: Effort normal. NEURO: Alert, moving all extremities MSK: No deformity of the extremities. Erythematous area surrounding anterior thigh tattoo without induration or evidence of abscess. Firm rubbery tender area in left inguinal region. NO calf/popliteal/medial thigh ttp, no LE edema or asymmetry SKIN: Warm and dry Emergency Department Course Interventions: 2355 Rocephin 1 g IV Emergency Department Course: 2320 Nursing notes and vitals reviewed. 2327 I performed an exam of the patient as documented above. 2358 Recheck and update. I outlined the borders of the patient's redness. 0038 I personally answered all related questions prior to discharge. Impression & Plan Medical Decision Making: Joel Amos is a 23 year old female who presents to the emergency department today for evaluation of left thigh redness and pain. Upon initial assessment she is afebrile with normal vital signs. Exam reveals evidence of erythema surrounding a recent tattoo. This is concerning for developing cellul itis. There is no evidence of abscess. She does have a tender lymph node in the left inguinal region. I suspect this is reactive in nature. There is no lower extremity asymmetry or tenderness along thedeep veins to suggest DVT. She was given a single dose of intravenous ceftriaxone and discharged with a prescription for Keflex. The area of redness was outlined. Close return precautions were discussed including fever, worsening pain, spreading of the redness beyond the borders. Plan for follow-up inclinic next week. Diagnosis: ICD-10-CM 1. Cellulitis of lower leg L03.119 Disposition: The patient is discharged to home. Discharge Medications: Discharge Medication List as of 07/08/2018 12:31 AM START taking these medications Details acetaminophen (TYLENOL) 500 MG tablet Take 1 tablet (500 mg) by mouth every 6 hours as needed for pain, Disp-60 tablet, R-0, Local Print cephALEXin (KEFLEX) 500 MG capsule Take 1 capsule (500 mg) by mouth 4 times daily for 7 days, Disp-28 capsule, R-0, Local Print Scribe Disclosure: Parul Lincoln, am serving as a scribe at 11:27 PM on 07/07/2018 to document services personally performed by Rosas Ibanez MD based on my observations and the provider's statements to me. [facility] Rosas Ibanez MD 07/08/18 0204 documented in this encounter Plan of Treatment Not on filedocumented as of this encounter Visit Diagnoses Diagnosis Cellulitis of lower leg Cellulitis and abscess of leg, except fo ot documented in this encounter Administered Medications Inactive Administered Medications - up to 3 most recent administrations Medication Order MAR Action Action Date Dose Rate Site cefTRIAXone (ROCEPHIN) 1 g vial to New Bag 07/07/2018 11:55 PM CDT 1 g attach to NS 100 mL bag for ADULTS or NS 50 mL bag for PEDS STAT, 1 g, Intravenous, ONCE, On Wanda 07/07/18 at 2333, For 1 dose, Indications: cellulitis documented in this encounter Active and Recently Administered Medications Times are shown in CDT. Scheduled Medication Order 07/06/2018 07/07/2018 07/08/2018 cefTRIAXone (ROCEPHIN) 1 g vial to attac h to NS 100 mL bag for ADULTS or NS 50 mL bag for PEDS (COMPLETED) 2954 (New Bag - Provider: Xuan Presley RN) 0031 (Stopped - Provider: Xuan Presley RN) STAT, 1 g, Intravenous, ONCE, On Wanda 06/12 04/27 at 2333, For 1 dose, Indications: cellulitis documented in this encounter Additional Health Concerns Assessment Noted Time PHQ-9 Depression Total Score: 15 04/08/2018 7:11 AM CD T documented as of this encounter Care Teams Assistant Press Operator Relationship Specialty Start Date End Date Viri Gallardo PCP - General Nurse Practitioner 06/29/17 04/14/20 DORIAN Nicole DIRECTOR TRANSITION [address] [facility] [place] [address] Viri Gallardo PCP - Assigned PCP 09/12/17 12/13/18 DORIAN Nicole DIRECTOR TRANSITION [address] [facility] [place] [address] Ailyn Medina, RN Clinic Cooking Chef Primary Care - CC 07/08/18 07/08/18 Viri Gallardo Assigned PCP 09/12/17 09/16/19 DORIAN Nicole DIRECTOR TRANSITION [address] [facility] [place] [address] documented as of this encounter
--- OUTSIDE RECORDS SUMMARY | 2022-09-05 18:56 | XMS_ITS | Encounter Summary ---
:1995 Author Organization [place] Address [address] [place] [address] Care Team Providers Name Role Phone Viri Gallardo APRN, CNP Primary Care Provider [phone] Viri Gallardo APRN FILM REPLACEMENT ORDERER Unavailable [phone] Viri Gallardo APRN, CNP Unavailable [phone] Reason for Referral Diagnostic Imaging XR - Closed Specialty Diagnoses / Procedures Referred By Contact Refer red To Contact Diagnoses Rib pain on right side Josse Hassan, Procedures XR Ribs & Chest Right G/E 3 Views JAGDISH [address] [place] [address] [place] [address] Referral ID Status Reason Start Date Expiration Date Visits Requ ested Visits Authorized [id number] Closed 05/10/2018 05/10/2019 1 1 Reason for Visit Reason Comments Urgent Care Chest Pain right rib pain x wednesday morn ing. Possible blackout on wednesday. Patient has been coughing x 2 months Encounter Details Date Type Department Care Team Description 05/10/2018 Office Visit [facility] Josse Hassan Rib pain on right side Urgent Care Jesu Urbano PA-C (Primary Dx) [address] [place] [address] [place] [phone] Social History Tobacco Use Types Packs/Day Years Used Date Smoking Tobacco: Former Cigarettes 0.3 Smokeless Tobacco: Never Alcohol Use Standard Drinks/Week Comments Yes 0 (1 standard drink = 0.6 oz pure 2 time s per month, 2-3 per time alcohol) Alcohol Habits Answer Date Recorded How often [...] Sign Reading Time Taken Comments Blood Pressure 112/68 05/10/2018 3:26 PM CDT Pulse 70 05/10/2018 3:26 PM CDT Temperature 36.4 ??C (97.6 ??F) 05/10/2018 3:26 PM CDT Respiratory Rate - - Oxygen Saturation 99% 05/10/2018 3:26 PM CDT Inhaled Oxygen Concentration - - Weight - - Height - - Body Mass Index - - documented in this encounter Patient Instructions Patient InstructionsJosse Hassan PA-C - 05/10/2018 4:05 PM CDT Images from the original note were not included. Chest Wall Pain: Costochondritis The chest pain that you have had today is caused by costochondritis. This condition is caused by an inflammation of the cartilage joining your ribs to your breastbone. It is not caused by heart or lungproblems. Your healthcare team has made sure that the chest pain you feel is not from a life threatening cause of chest pain such as heart attack, collapsed lung, blood clot in the lung, tear in the aorta, or esophageal rupture. The inflammation may have been brought on by a blow to the chest, liftingheavy objects, intense exercise, or an illness that made you cough and sneeze a lot. It??often occurs??during times of emotional stress.??It can be painful, but it is not dangerous. It usually goes away in 1 to 2 weeks. But it may happen again. Rarely, a more serious condition may cause symptoms similar to costochondritis. That???s why it???s important to watch for the warning signs listed below. Home care Follow these guidelines when caring for yourself at home: ?? If you feel that emotional stress is a cause of your condition, try to figure out the sources of that stress. It may not be obvious. Learn ways to deal with the stress in your life. This can includeregular exercise, muscle relaxation, meditation, or simply taking time out for yourself. ?? You may use acetaminophen, ibuprofen, or naproxen to control pain, unless another pain medicine was prescribed. If you have liver or kidney disease or ever had a stomach ulcer, talk with your healthcare provider before using these medicines. ?? You can also help ease pain by using a hot, wet compress or heating pad. Use this with or withouta medicated skin cream that helps relieves pain. ?? Do stretching exercise as advised by your provider. ?? Take any prescribed medicines as directed. Follow-up care Follow up with your healthcare provider, or as advised, if you do not start to get better in the next 2 days. When to seek medical advice Call your healthcare provider right away if any of these occur: ?? A change in the type of pain. Call if it feels different, becomes more serious, lasts longer, or spreads into your shoulder, arm, neck, jaw, or back. ?? Shortness of breath or pain gets worse when you breathe ?? Weakness, dizziness, or fainting ?? Cough with dark-colored sputum (phlegm) or blood ?? Abdominal pain ?? Dark red or black stools ?? Fever of 100.4??F (38??C) or higher, or as directed by your healthcare provider Date Last Reviewed: 09/10/2016 ?? [id number] [employer]. [address] [place] [address]. All rights reserved. This information is not intended as a substitute for professional medical care. Always follow your healthcare professional's instructions. documented in this encounter Progress Notes Josse Hassan PA-C - 05/10/2018 3:20 PM CDT Images from the original note were not included. SUBJECTIVE: Chief Complaint Patient presents with ??? Urgent Care ??? Chest Pain right rib pain x wednesday morning. Possible blackout on wednesday. Patient has been coughing x 2 months Joel Amos is a 22 year old female presents with a chief complaint of right rib pain tenderness. The injury occurred 3 day(s) ago. The injury happened while playing. How: dancing/coughing. The patient complained of persisting pain and has not had decreased ROM. Pain exacerbated by twisting, flexion/extension and lifting and reachinfg. Relieved by rest. She treated it initially with ice. This is the first time this type of injury has occurred to this patient. Past Medical History: Diagnosis Date ??? Anxiety [...] not 16/18, 22 yr old Current Outpatient Prescriptions Medication Sig Dispense Refill ??? albuterol (2.5 MG/3ML) 0.083% neb solution Take 1 vial (2.5 mg) by nebulization every 6 hours asneeded for shortness of breath / dyspnea or wheezing 25 vial 0 ??? albuterol (PROAIR HFA/PROVENTIL HFA/VENTOLIN HFA) 108 (90 Base) MCG/ACT Inhaler Inhale 2 puffs into the lungs every 6 hours as needed for shortness of breath / dyspnea or wheezing 1 Inhaler 0 ??? hydrOXYzine (ATARAX) 25 MG tablet Take 1-2 tablets (25-50 mg) by mouth every 6 hours as needed for itching 60 tablet 1 ??? SUMAtriptan (IMITREX) 100 MG tablet Take 1 tablet (100 mg) by mouth at onset of headache for migraine May repeat in 2 hours. Max 2 tablets/24 hours. 18 tablet 3 ??? triamcinolone (KENALOG) 0.1 % lotion Apply topically 3 times daily ? ? varenicline (CHANTIX STARTING MONTH ) 0.5 MG X 11 & 1 MG X 42 tablet Take 0.5 mg tab daily for 3 days, then 0.5 mg tab twice daily for 4 days, then 1 mg twice daily. 53 tablet 0 ??? varenicline (CHANTIX) 1 MG tablet Take 1 tablet (1 mg) by mouth 2 times daily 56 tablet 2 ??? amoxicillin-clavulanate (AUGMENTIN) 875-125 MG per tablet Take 1 tablet by mouth 2 times daily (Patient not taking: Reported on 05/10/2018) 20 tablet 0 ??? benzonatate (TESSALON) 100 MG capsule Take 1 capsule (100 mg) by mouth 3 times daily as needed for cough (Patient not taking: Reported on 05/10/2018) 42 capsule 0 Social History Substance Use Topics ??? Smoking status: Former Smoker Packs/day: 0.25 ??? Smokeless tobacco: Never Used ??? Alcohol use 0.0 oz/week 0 Standard drinks or equivalent per week Comment: 2 times per month, 2-3 per time ROS: Review of systems negative except as stated above. EXAM: BP 112/68 (BP Location: Right arm, Patient Position: Chair, Cuff Size: Adult Regular) Pulse 70 Temp 97.6 ??F (36.4 ??C) (Tympanic) SpO2 99% Gen: healthy,alert,no distress Extremity: tender with out bruising at anterior 8th rib. GENERAL APPEARANCE: healthy, alert and no distress CHEST: clear to auscultation CV: regular rate and rhythm EXTREMITIES: peripheral pulses normal MS: no gross deformities noted, no evidence of inflammation in joints, FROM in all extremities. SKIN: no suspicious lesions or rashes NEURO: Normal strength and tone, sensory exam grossly normal, mentation intact and speech normal X-RAY WNL on initial ASSESSMENT: (R07.81) Rib pain on right side (primary encounter diagnosis) Plan: XR Ribs & Chest Right G/E 3 Views, cyclobenzaprine (FLEXERIL) 10 MG tablet, ibuprofen (ADVIL/MOTRIN) 600 MG tablet Patient Instructions Chest Wall Pain: Costochondritis The chest pain that you have had today is caused by costochondritis. This condition is caused by an inflammation of the cartilage joining your ribs to your breastbone. It is not caused by heart or lungproblems. Your healthcare team has made sure that the chest pain you feel is not from a life threatening cause of chest pain such as heart attack, collapsed lung, blood clot in the lung, tear in the aorta, or esophageal rupture. The inflammation may have been brought on by a blow to the chest, liftingheavy objects, intense exercise, or an illness that made you cough and sneeze a lot. It??often occurs??during times of emotional stress.??It can be painful, but it is not dangerous. It usually goes away in 1 to 2 weeks. But it may happen again. Rarely, a more serious condition may cause symptoms similar to costochondritis. That???s why it???s important to watch for the warning signs listed below. Home care Follow these guidelines when caring for yourself at home: ?? If you feel that emotional stress is a cause of your condition, try to figure out the sources of that stress. It may not be obvious. Learn ways to deal with the stress in your life. This can includeregular exercise, muscle relaxation, meditation, or simply taking time out for yourself. ?? You may use acetaminophen, ibuprofen, or naproxen to control pain, unless another pain medicine was prescribed. If you have liver or kidney disease or ever had a stomach ulcer, talk with your healthcare provider before using these medicines. ?? You can also help ease pain by using a hot, wet compress or heating pad. Use this with or withouta medicated skin cream that helps relieves pain. ?? Do stretching exercise as advised by your provider. ?? Take any prescribed medicines as directed. Follow-up care Follow up with your healthcare provider, or as advised, if you do not start to get better in the next 2 days. When to seek medical advice Call your healthcare provider right away if any of these occur: ?? A change in the type of pain. Call if it feels different, becomes more serious, lasts longer, or spreads into your shoulder, arm, neck, jaw, or back. ?? Shortness of breath or pain gets worse when you breathe ?? Weakness, dizziness, or fainting ?? Cough with dark-colored sputum (phlegm) or blood ?? Abdominal pain ?? Dark red or black stools ?? Fever of 100.4??F (38??C) or higher, or as directed by your healthcare provider Date Last Reviewed: 09/10/2016 ?? [id number] [employer]. [address] [place] [address], [place] [address]. All rights reserved. This information is not intended as a substitute for professional medical care. Always follow your healthcare professional's instructions. documented in this encounter Plan of Treatment Not on filedocumented as of this encounter Results XR Ribs & Chest Right G/E 3 Views (05/10/2018 4:03 PM CDT) Anatomical Region Laterality Modality Chest Right Computed Radiography Specimen (Source) Anatomical Location Collection Method / Collectio n Time Received Time / Laterality Volume Impressions 05/10/2018 6:28 PM CDT IMPRESSION: Negative. ANNIE GALLOWAY MD Narrative 05/10/2018 6:28 PM CDT RIBS AND CHEST RIGHT THREE VIEWS ?? 05/10/2018 4:03 PM HISTORY: Rib pain on right side COMPARISON: 04/21/2018 FINDINGS: Lungs are well-inflated and cl ear. Heart size is normal. No displaced rib fractures are identified. Procedure Note Annie Galloway MD - 05/10/2018F ormatting of this note might be different from the original. RIBS AND CHEST RIGHT THREE VIEWS 05/10/20 18 4:03 PM HISTORY: Rib pain on right side COMPARISON: 04/21/2018 FINDINGS: Lungs are well-inflated and cl ear. Heart size is normal. No displaced rib fractures are identified. IMPRESSION: Negative. ANNIE GALLOWAY MD Josse Hassan PA-C IMG DIAGNOSTIC IMAGING O RDERABLES documented in this encounter Visit Diagnoses Diagnosis Rib pain on right side - Primary Chest pain, unspecified Rib pain on right side Chest pain, unspecified documented in this encounter Additional Health Concerns Assessment Noted Time PHQ-9 Depression Total Score: 15 04/08/2018 7:11 AM CD T documented as of this encounter Care Teams Aviation Ordnance Officer Relationship Specialty Start Date End Date Viri Gallardo PCP - General Nurse Practitioner 06/29/17 04/14/20 ANTISQUEAK APPLIER FILM REPLACEMENT ORDERER [address] [facility] [address] [place], [place] [address] Viri Gallardo PCP - Assigned PCP 09/12/17 12/13/18 ANTISQUEAK APPLIER FILM REPLACEMENT ORDERER [address] [facility] [place] [address] Viri Gallardo, Assigned PCP 09/12/1709/16 ANTISQUEAK APPLIER FILM REPLACEMENT ORDERER [address] [facility] [place] [address] documented as of this encounter
--- OUTSIDE RECORDS SUMMARY | 2022-09-05 18:56 | XMS_ITS | Encounter Summary ---
:1995 Author Organization [place] Address [address] [place] [address] Care Team Providers Name Role Phone Viri Gallardo APRN, CNP Primary Care Provider [phone] Viri Gallardo APRN DEBUBBLIZER Unavailable [phone] Viri Gallardo APRN, CNP Unavailable [phone] Reason for Referral Diagnostic Imaging XR - Closed Specialty Diagnoses / Procedures Referred By Contact Refer red To Contact Diagnoses Cough Josse Hassan, Procedures XR Chest [address] [facility] [place] [address] Referral ID Status Reason Start Date Expiration Date Visits Requ ested Visits Authorized [id number] Closed 04/21/2018 04/21/2019 1 1 Reason for Visit Reason Comments URI start 3 weeks (seen 04/14/18 Fatuma Christie) sx cough, coughing fits- random, concerned when it happens dr nelson, cough sometimes productive- white and bubbly, chest congestion hea daches gone down, episodes of fatigue- napping, slight improvement tx curren tly on Amoxicillin, Tessalon Encounter Details Date Type Department Care Team Description 04/21/2018 [facility] Jesu Urbano PA-C [address] [place] [address] [place] [phone] Social History Tobacco Use Types Packs/Day Years [...] Sign Reading Time Taken Comments Blood Pressure 116/50 04/21/2018 2:03 PM CDT Pulse 64 04/21/2018 2:03 PM CDT Temperature 36.7 ??C (98.1 ??F) 04/21/2018 2:03 PM CDT Respiratory Rate - - Oxygen Saturation 98% 04/21/2018 2:03 PM CDT Inhaled Oxygen Concentration - - Weight 49.9 kg (110 lb 1.6 oz) 04/21/2018 2:03 PM CDT Height 163.2 cm (5' 4.25) 04/21/2018 2:03 PM CDT Body Mass Index 18.75 04/21/2018 2:03 PM CDT documented in this encounter Patient Instructions Patient InstructionsWiJosse ogden PA-C - 04/21/2018 1:40 PM CDT Images from the original note were not included. With distilled water 2-3x per day for a minimum 2-3 days Increased fluids, humidifier at night, steaming in the day documented in this encounter Progress Notes Josse Hassan PA-C - 04/21/2018 1:40 PM CDT Images from the original note were not included. SUBJECTIVE: Joel Amos is a 22 year old female who presents to the clinic today with a chief complaint of cough for 3 week(s). Her cough is described as nonproductive. The patient's symptoms are mild and stable. Associated symptoms include shortness of breath and wheezing. The patient's symptoms are exacerbatedby no particular triggers Patient has been using Augmentin for 7 days, water, extra sleep. to improve symptoms. Past Medical History: Diagnosis [...] Outpatient Prescriptions Medication Sig Dispense Refill ??? amoxicillin-clavulanate (AUGMENTIN) 875-125 MG per tablet Take 1 tablet by mouth 2 times daily 20 tablet 0 ??? benzonatate (TESSALON) 100 MG capsule Take 1 capsule (100 mg) by mouth 3 times daily as needed for cough 42 capsule 0 ??? hydrOXYzine (ATARAX) 25 MG tablet Take 1-2 tablets (25-50 mg) by mouth every 6 hours as needed for itching 60 tablet 1 ??? SUMAtriptan (IMITREX) 100 MG tablet Take 1 tablet (100 mg) by mouth at onset of headache for migraine May repeat in 2 hours. Max 2 tablets/24 hours. 18 tablet 3 ? ? varenicline (CHANTIX STARTING MONTH ) 0.5 MG X 11 & 1 MG X 42 tablet Take 0.5 mg tab daily for 3 days, then 0.5 mg tab twice daily for 4 days, then 1 mg twice daily. 53 tablet 0 ??? triamcinolone (KENALOG) 0.1 % lotion Apply topically 3 times daily Social History Substance Use Topics ??? Smoking status: Former Smoker Packs/day: 0.25 ??? Smokeless tobacco: Never Used ??? Alcohol use 0.0 oz/week 0 Standard drinks or equivalent per week Comment: 2 times per month, 2-3 per time ROS Review of systems negative except as stated above. OBJECTIVE: BP 116/50 (BP Location: Right arm, Patient Position: Chair, Cuff Size: Adult Regular) Pulse 64 Temp 98.1 ??F (36.7 ??C) (Oral) Ht 5' 4.25 (1.632 m) Wt 110 lb 1.6 oz (49.9 kg) SpO2 98% BMI 18.75 kg/m2 GENERAL APPEARANCE: healthy, alert and no distress EYES: EOMI, PERRL, conjunctiva clear HENT: ear canals and TM's normal. Nose and mouth without ulcers, erythema or lesions NECK: supple, nontender, no lymphadenopathy RESP: lungs clear to auscultation - no rales, rhonchi or wheezes CV: regular rates and rhythm, normal S1 S2, no murmur noted NEURO: Normal strength and tone, sensory exam grossly normal, normal speech and mentation SKIN: no suspicious lesions or rashes CXR: WNL on initial read ASSESSMENT: (R05) Cough (primary encounter diagnosis) Plan: XR Chest 2 Views, albuterol (PROAIR HFA/PROVENTIL HFA/VENTOLIN HFA) 108 (90 Base) MCG/ACT Inhaler, albuterol (2.5 MG/3ML) 0.083% neb solution Patient Instructions With distilled water 2-3x per day for a minimum 2-3 days Increased fluids, humidifier at night, steaming in the day documented in this encounter Plan of Treatment Not on filedocumented as of this encounter Results XR Chest 2 Views (04/21/2018 2:49 PM CDT) Anatomical Region Laterality Modality Chest Computed Radiography Specimen (Source) Anatomical Location Collection Method / Collectio n Time Received Time / Laterality Volume Impressions 04/21/2018 3:11 PM CDT IMPRESSION: No definite acute abnormality. BLUE SCHWARTZ MD Narrative 04/21/2018 3:11 PM CDT XR CHEST 2 VW ?? 04/21/2018 2:49 PM HISTORY: ; Cough COMPARISON: 10/30/2016 Procedure Note Blue Schwartz MD - 04/21/2018F ormatting of this note might be different from the original. XR CHEST 2 VW 04/21/2018 2:49 PM HISTORY: ; Cough COMPARISON: 10/30/2016 IMPRESSION: No definite acute abnormalit brian SCHWARTZ MD Josse Hassan PA-C IMG DIAGNOSTIC IMAGING O RDERABLES documented in this encounter Visit Diagnoses Diagnosis Cough - Primary Cough documented in this encounter Additional Health Concerns Assessment Noted Time PHQ-9 Depression Total Score: 15 04/08/2018 7:11 AM CD T documented as of this encounter Care Teams Glacing Machine Tender Relationship Specialty Start Date End Date Viri Gallardo, PCP - General Nurse Practitioner 06/29/17 04/14/20 BRUISE TRIMMER DEBUBBLIZER [address] [facility] [place] [address] Viri Gallardo, PCP - Assigned PCP 09/12/17 12/13/18 BRUISE TRIMMER DEBUBBLIZER [address] [facility] [place] [address] Viri Gallardo, Assigned PCP 09/12/1709/16 BRUISE TRIMMER DEBUBBLIZER [address] [facility] [place] [address] documented as of this encounter
--- OUTSIDE RECORDS SUMMARY | 2022-09-05 18:56 | XMS_ITS | Encounter Summary ---
:1995 Author Organization [place] Address [address] [place] [address] Care Team Providers Name Role Phone Viri Gallardo APRN, CNP Primary Care Provider [phone] Viri Gallardo APRN SENIOR SECURITY ARCHITECT Unavailable [phone] Viri Gallardo APRN, CNP Unavailable [phone] Reason for Visit Reason Onset Date Comments Appointment 08/01/2018 Encounter Details Date Type Department Care Team Description 08/01/2018 Telephone [facility] Viri Gallardotine, Appointment Jesu ALARCON SENIOR SECURITY ARCHITECT [address] [facility] [address] [facility] [address] [place] [address] [place] [phone] Social History Tobacco Use Types Packs/Day Years [...] on file documented as of this encounter Miscellaneous Notes Telephone Encounter - Aneta Varghese MA - 08/01/2018 11:18 AM CDT Patient is not on our schedule for tomorrow. Aneta Varghese CMA Telephone Encounter - Viri Gallardo APRN CNP - 08/01/2018 8:07 AM CDT Please see if she can come at 10:40 instead of 11 tomorrow? If so, please switch the block and the appointment time. documented in this encounter Plan of Treatment Not on filedocumented as of this encounter Visit Diagnoses Not on filedocumented in this encounter Additional Health Concerns Assessment Noted Time PHQ-9 Depression Total Score: 15 04/08/2018 7:11 AM CD T documented as of this encounter Care Teams Tool Supervisor Relationship Specialty Start Date End Date Viri Gallardo, PCP - General Nurse Practitioner 06/29/17 04/14/[address] [place] [address] Viri Gallardo, PCP - Assigned PCP 09/12/17 12/13/[address] [place] [address] Viri Gallardo, Assigned PCP 09/12/1709/[address] [place] [address] documented as of this encounter
--- OUTSIDE RECORDS SUMMARY | 2022-09-05 18:56 | XMS_ITS | Encounter Summary ---
:1995 Author Organization [facility] Address [address] [place] [address] Care Team Providers Name Role Phone Viri Gallardo APRN, CNP Primary Care Provider [phone] Viri Gallardo APRN LINE AND FRAME POLER Unavailable [phone] Viri Gallardo APRN, CNP Unavailable [phone] Reason for Visit Reason Comments Foot Problems BL foot bunions very painful x 6 months Consultation - Closed Specialty Diagnoses / Procedures Referred By Contact Refer red To Contact Podiatry Diagnoses Bunion Jed Cabezas MD [facility] [address] [facility] JESU TANG [address] [place] [address] [address] [place] [phone] Phone: Fax: Referral ID Status Reason Start Date Expiration Date Visits Requ ested Visits Authorized [id number] Closed 07/28/2018 07/28/2019 1 1 Encounter Details Date Type Department Care Team Description 08/03/2018 Office Visit [facility] Demian Laureano Hal lux abducto valgus, bilateral (Primary Dx); Clinic Jesu DPM Pain in joints of both feet [address] [place] [address] [address] [place], [place] [id number] [phone] (Wo rk) Social History Tobacco Use Types Packs/Day Years Used Date Smoking Tobacco: Former Cigarettes 0.3 Smokeless Tobacco: Never Tobacco Cessation: Counseling Given: No Alcohol Use Standard Drinks/Week Comments [...] Sign Reading Time Taken Comments Blood Pressure 106/60 08/03/2018 7:20 AM CDT Pulse - - Temperature - - Respiratory Rate - - Oxygen Saturation - - Inhaled Oxygen Concentration - - Weight 54.4 kg (120 lb) 08/03/2018 7:20 AM CDT Height 160 cm (5' 3) 08/03/2018 7:20 AM CDT Body Mass Index 21.26 08/03/2018 7:20 AM CDT documented in this encounter Patient Instructions Patient InstructionsRich Blanco - 08/03/2018 7:15 AM CDT Thank you for choosing [facility]! DR[facility] LOCATIONS WEDNESDAY - Wednesday - JESU [address] [place] [address] [place] [address] / FX [phone] / FX [phone] WEDNESDAY - SCHEDULE SURGERY: [phone] APPOINTMENTS: [phone] [place] [address] BILLING QUESTIONS: [phone] / FX [phone] JANELL SHOES LOCATIONS [place] [address] [place] [address] [phone] [phone] [phone] [place] [address] [phone] [phone] [facility] [address] [phone] [place] [address] [place] [address] BUNION (HALLUX ABDUCTO VALGUS) A bunion is caused by muscle imbalance. The great toe is pulled toward the smaller toes. The metatarsal head is pushed outward creating a lump on the side of your foot. Imbalance is the result of foot structure and instability. Bunions do not improve with time. They usually enlarge, however this is a fairly slow process. Shoesdo not necessarily cause bunions, however, they can hasten development and definitely cause bunions to hurt. Bunions often run in families. We inherit a certain foot structure, which may be predisposed to bunion development. Bunion pain is likely a combination of shoes rubbing on the bump, nerve irritation, compression between the toes, joint misalignment, arthritis and altered gait. SYMPTOMS Bunions are usually termed mild, moderate or severe. Just because you have a bunion does not mean you have to have pain. There are some people with very severe bunions and no pain and people with mild bunions and a lot of pain. - Pain on the inside of your foot at the big toe joint (1st MTPJ) - Swelling on the inside of your foot at the big toe joint - Redness on the inside of your foot at the big toe joint - Numbness or burning in the big toe (hallux) - Decreased motion at the big toe joint - Painful bursa (fluid-filled sac) on the inside of your foot at the big toe joint - Pain while wearing shoes -especially shoes too narrow or with high heels - Pain during activities - [place] in between the big toe and second toe - Callous formation on the side or bottom of the big toe or big toe joint - Callous under the second toe joint (2nd MTPJ) - Pain in the second toe joint TREATMENT Conservative (non-surgical) treatment will not make the bunion go away, but it will hopefully decrease the signs and symptoms you have and help you get rid of the pain and get you back to your activities. 1. Wider shoes or extra depth shoes: Most bunion pain can be improved simply by wearing compatible shoes. People with bunions cannot choose footwear simply because they like the style. Your bunion should determine which shoes are to be worn. Wide shoes with nonirritating seams,soft leather and a square toe box are most compatible with a bunion. Shoes should fit appropriately right out of the box but may need to be professionally stretched and modified to accommodate the bump. Heels, dress shoes and shoes with pointed toes will not be comfortable. 2. NSAIDs 3. Arch supports, custom inserts, padding, splints, toe spacers : Most bunion pain can be improved simply by wearing compatible shoes. People with bunions cannot choose footwear simply because they like the style. Your bunion should determine which shoes are to be worn. Wide shoes with nonirritating seams,soft leather and a square toe box are most compatible with a bunion. Shoes should fit appropriately right out of the box but may need to be professionally stretched and modified to accommodate the bump. Heels, dress shoes and shoes with pointed toes will not be comfortable. 4. Change activities 5. Physical therapy SURGERY Surgical treatment for bunions is sometimes needed. If you are limited by pain, cannot fit in shoes comfortably and are not able to do your daily activities then surgery may be a good option for you. There are many different surgical procedures to repair bunions. Your foot and ankle surgeon will review your foot exam findings, your x-rays, your age, your health, your lifestyle, your physical activitylevel and discuss with you which procedure he or she would recommend. Surgical procedures for bunions range from soft tissue repair to cutting and realigning the bones. It is not recommended that you have bunion surgery for cosmetic reasons (you do not like how your foot looks) or because you want to f it in a certain pair of shoes; There is the risk that even after surgery, the bunion will reoccur 9-10% of the time. Bunion surgery involves cutting and repositioning the bones surrounding the bunion. Pins and screws are used to hold the bones in place during the healing process. The goal of bunion surgery is to reduce the size of the bunion bump. Realignment of the toe and joint is attempted. Some first toes cannot be forced back into normal alignment even with surgery. Surgery is helpful inmost cases but does not necessarily create a normal foot. Healing after surgery requires about six weeks of protection. This allows the bone to heal. Maximum recovery takes about one year. The scar tissue and jOint structures require this amount of time to finish the healing process. Expect stiffness, swelling and numbness during that time frame. Bunion surgery does involve side effects. Some side effects are predictable and others are less common but do occur. A scar will be visible and could be irritated by shoes. The shoe may rub on the screw or internal pin requiring surgical removal of these fixation devices. The screw and pin would likely be left inplace for a full year. The first toe may loose motion after bunion surgery. The amount of stiffness is variable. Some people never regain normal motion of the first toe. This is due to scar tissue inherent to any surgery. The first toe may drift toward the second toe or away from the second toe. Spreading of the first and second toes is a rare occurrence after bunion surgery. This can be quite bothers ome and would need to be surgically repaired. Toe drift toward the second toe could result in a recurrent bunion and revision surgery. Joint fusion is one option to correct an unstable, drifting toe. This procedure straightens the toe, however, no motion remains. Fusion may be necessary to correct complications of bunion surgery or as the original procedure in severe cases. All surgical procedures involve risk of infection, numbness, pain, delayed healing, osteotomy dislocation, blood clots, continued foot pain, etc. Bunion surgery is quite complex and should not be takenlightly. Any skin incision can lead to infection. Deep infection might involve the bone and thus repeat surgery and six weeks of IV antibiotics. Scar tissue can cause nerve pain or numbness. This is generally temporary but can be permanent. We do not have treatments that cure nerve problems. Second toe pain could be related to altered mechanics and pressure transferred to the second toe. Most feet with bunions have pre-existing second toe problems. Delayed bone healing would lengthen the healing time. Some bones simply do not heal. This requires repeat surgery, electronic bone stimulation and/or extended protection. Smokers have an approximate 20% chance of poor bone healing. This is double that of a non-sm oker. The bone cut may displace. This may need to be repaired with a second operation. Displacement can cause jOint malalignment. Immobility after surgery can cause blood clots in the legs and lungs. This could result in . Foot pain is complex. Most feet hurt for more than one reason. Fixing the bunion would not necessarily create a pain free foot. Appropriate shoes, healthy body weight, avoidance of bare foot walking and moderation of activity will always be necessary to enjoy foot comfort. Your bunion may involve arthritis, which is incurable even with surgery. Long standing bunions often involve chronic irritation to the surrounding nerves. Nerve pain may not resolve even with reducing the bunion bump since permanent nerve damage may be present Bunion surgery is nevertheless quite successful. Most surgical patients are pleased with their foot following bunion surgery. Many of the issues described above can be controlled by taking proper care of your foot during the healing process. Your surgeon would be happy to fully describe any of the above issues. You should pursue a full understanding of the operation,recovery process and any potential problems that could develop. PREVENTION 1. Do not wear high heels if there is a family history of bunions. 2. Wear shoes that have enough width and depth in the toe box Here are exercises that may benefit people with bunions: Toe stretches - Stretching out your toes can help keep them limber and offset foot pain. To stretch your toes, point your toes straight ahead for 5 seconds and then curl them under for 5 seconds. Repeat these stretches 10 times. These exercises can be especially beneficial if you also have hammertoes,or chronically bent toes, in addition to a bunion. Toe flexing and hernando - Press your toes against a hard surface such as a wall, to flex and stretch them; hold the position for 10 seconds and repeat three to four times. Then flex your toes in the opposite direction; hold the position for 10 seconds and repeat three to four times. Stretching your big toe - Using your fingers to gently pull your big toe over into proper alignment can be helpful as well. Hold your toe in position for 10 seconds and repeat three to four times. Resistance exercises - Wrap either a towel or belt around your big toe and use it to pull your big toe toward you while simultaneously pushing forward, against the towel, with your big toe. Ball roll - To massage the bottom of your foot, sit down, place a golf ball on the floor under your foot, and roll it around under your foot for two minutes. This can help relieve foot strain and cramping. Towel curls - You can strengthen your toes by spreading out a small towel on the floor, curling yourtoes around it, and pulling it toward you. Repeat five times. Gripping objects with your toes like this can help keep your foot flexible. Picking up marbles - Another gripping exercise you can perform to keep your foot flexible is pickingup marbles with your toes. Do this by placing 20 marbles on the floor in front of you and use your foot to pick the marbles up one by one and place them in a bowl. Walking along the beach - Whenever possible, spend time walking on sand. This can give you a gentle foot massage and also help strengthen your toes. This is especially beneficial for people who have arthritis associated with their bunions. FYI: THE FOLLOWING INFORMATION IS PRINTED IN EVERYONE'S AFTER VISIT SUMMERY BODY MASS INDEX (BMI) Many things can cause foot and ankle problems. Foot structure, activity level, foot mechanics and injuries are common causes of pain. One very important issue that often goes unmentioned, is body weight. Extra weight can cause increased stress on muscles, ligaments, bones and tendons. Sometimes just afew extra pounds is all it takes to put one over her/his threshold. Without reducing that stress, itcan be difficult to alleviate pain. Some people are uncomfortable addressing this issue, but we feelit is important for you to think about it. As Foot & Ankle specialists, our job is addressing the lower extremity problem and possible causes. Regarding extra body weight, we encourage patients to discuss diet and weight management plans with their primary care doctors. It is this team approach that gives you the best opportunity for pain relief and getting you back on your feet. documented in this encounter Progress Notes Demian Laureano DPM - 08/03/2018 7:15 AM CDT ASSESSMENT/PLAN: Encounter Diagnoses Name Primary? Hallux abducto valgus, bilateral Yes ??? Pain in joints of both feet Conservative cares reviewed including proper shoes, orthoses, anti-inflammatory measures, padding, and the avoidance of barefoot walking. Informational handout on bunions provided. Surgical intervention was also discussed. It was explained that recovery from surgery takes a minimum of 6-8 weeks, with complete healing taking up to 12 months. NWB might be needed. Time off from workis required. No high impact activity for 3 months. Goals of surgery include pain reduction and deformity correction, but no guarantees were given. HAV deformity will likely progress without surgery andcan reoccur after surgery. Orthotic devices might be needed after surgery. I asked her to try stiffer soled shoes for work and exercise. I explained how they splint the joint and reduce stress during the propulsive phase of gait. If she continues to have pain, despite the above recommendations, then we will consider surgery. X-ray deferred until follow up. Body mass index is 21.26 kg/(m^2). Demian Laureano DPM, FACFAS, MS [facility] HPI: I was asked by Dr. Cabezas to evaluate this patient, in consultation, regarding bilateral bunion deformity. Chief Complaint: bunions Onset of problem: 6 months - pain Pain/ discomfort is described as: Numb ache Ratin/10 at worst Frequency: 6/7 days per week The pain is made worse with walking, working, exercise Previous treatment: no * Patient Active Problem List Diagnosis ??? Migraine ??? Health Intermediate ??? Pain in joint, pelvic region and thigh ??? Moderate episode of recurrent major depressive disorder (H) ??? Moderate bipolar II disorder, most recent episode major depressive (H) ??? Cannabis abuse, continuous - Mild ??? Papanicolaou smear of cervix with low grade squamous intraepithelial lesion (LGSIL) ??? ERRONEOUS ENCOUNTER--DISREGARD * *No past surgical history on file.* * Current Outpatient Prescriptions Medication Sig Dispense Refill [...] dyspnea or wheezing 1 Inhaler 0 ??? fluticasone (FLOVENT DISKUS) 50 MCG/BLIST AEPB Inhale 1 puff into the lungs every 12 hours 120 Inhaler 0 ??? ibuprofen (ADVIL/MOTRIN) 200 MG tablet Take 2 tablets (400 mg) by mouth every 6 hours as needed for pain 60 tablet 0 ??? SUMAtriptan (IMITREX) 100 MG tablet Take 1 tablet (100 mg) by mouth at onset of headache for migraine May repeat in 2 hours. Max 2 tablets/24 hours. 18 tablet 3 ROS: A 10-point review of systems was performed and is positive for that noted above in the HPI and as seen below. All other areas are negative. Numbness in feet? yes Calf pain with walking? yes Recent foot/ankle injury? no Weight foreign exchange dealer past 12 months? 10# gain Self perception as overweight? no Recent flu-like symptoms? no Joint pain other than feet ? 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 Marital status: Single Spouse name: N/A ??? Number of children: 2 ??? Years of education: N/A Occupational History ??? Not on file. Social History Main Topics ??? Smoking status: Former Smoker Packs/day: 0.25 ??? Smokeless tobacco: Never Used ??? Alcohol use 0.0 oz/week 0 Standard drinks or equivalent per week Comment: states I don't even know re how many a week ??? Drug use: 7.00 per week Special: Marijuana ??? Sexual activity: Yes Partners: Male control/ protection: IUD Comment: NONE Other Topics Concern ??? Parent/Sibling W/ Cabg, Mi Or Angioplasty Before 65f 55m? No Social History Narrative Family history: Family History Problem Relation Age of Onset ??? Hypertension Mother ??? Diabetes Maternal Grandmother ??? Hypertension Maternal Grandmother ??? Hypertension Maternal Grandfather ??? Diabetes Maternal Grandfather ??? Cancer Paternal Uncle Rheumatoid arthritis: no Foot Problems: parent, grandparent - bunions Diabetes: no EXAM: Vitals: BP 106/60 Ht 5' 3 (1.6 m) Wt 120 lb (54.4 kg) BMI 21.26 kg/m2 BMI: Body mass index is 21.26 kg/(m^2). Height: 5' 3 Constitutional/ general: Pt is in no apparent distress, appears well-nourished. Cooperative with history and physical exam. Vascular: Pedal pulses are palpable bilaterally for both the DP and PT arteries. CFT < 3 sec. No edema. Pedal hair growth noted. Neuro: Alert and oriented x 3. Coordinated gait. Light touch sensation is intact to the L4, L5, S1 distributions. No obvious deficits. No evidence of neurological-based weakness, spasticity, or contracture in the lower extremities. Derm: Normal texture and turgor. No erythema, ecchymosis, or cyanosis. No open lesions. Musculoskeletal: Lower extremity muscle strength is normal. Patient is ambulatory without an assistive device or brace . Hallux abducto valgus deformity, bilateral foot. Reducible in the transverse plane with preserved sagittal plane ROM. No crepitus. Hypermobility bilateral midfoot/ 1st metatarsocuneiform joint. Demian Laureano DPM, F[place], MS [facility]le [facility] documented in this encounter Plan of Treatment Not on filedocumented as of this encounter Visit Diagnoses Diagnosis Hallux abducto valgus, bilateral - Prima ry Pain in joints of both feet documented in this encounter Additional Health Concerns Assessment Noted Time PHQ-9 Depression Total Score: 15 04/08/2018 7:11 AM CD T documented as of this encounter Care Teams Beef Pusher Relationship Specialty Start Date End Date Viri Gallardo PCP - General Nurse Practitioner 06/29/17 04/14/20 SOFA COVER INSPECTOR LINE AND FRAME POLER [address] [facility] [address] [place], [place] [address] Viri Gallardo PCP - Assigned PCP 09/12/17 12/13/18 SOFA COVER INSPECTOR LINE AND FRAME POLER [address] [facility] [place] [address] Viri Gallardo, Assigned PCP 09/12/1709/16 SOFA COVER INSPECTOR LINE AND FRAME POLER [address] [facility] [place] [address] documented as of this encounter
--- OUTSIDE RECORDS SUMMARY | 2022-09-05 18:56 | XMS_ITS | Encounter Summary ---
:1995 Author Organization [facility] Address [address] [place] [address] Care Team Providers Name Role Phone Viri Gallardo APRN, CNP Primary Care Provider [phone] Viri Gallardo APRN COMMERCIAL INSTALLER Unavailable [phone] Viri Gallardo APRN, CNP Unavailable [phone] Reason for Visit Diagnostic Imaging XR - Closed Specialty Diagnoses / Procedures Referred By Contact Refer red To Contact Diagnoses Rib pain on right side Josse Hassan, Procedures XR Ribs & Chest Right G/E 3 Views PA-C [address] [place] [address] [place] [address] Referral ID Status Reason Start Date Expiration Date Visits Requ ested Visits Authorized [id number] Closed 05/10/2018 05/10/2019 1 1 Encounter Details Date Type Department Care Team Description 05/10/2018 Radiant Appointment [facility] Josse Hassan ib pain on right Clinic Jesu Urbano, PAMarisolC side [address] [place] [address] [place] [address] [address] [place] [address] [place] [phone] (Work) [phone] Social History Tobacco Use Types Packs/Day Years [...] Priority Date/Time Associated Diagnosis Comme nts XR RIBS & CHEST RT Routine 05/10/2018 4:03 PM Rib pain on righ t Results for this 3VW CDT side procedure are i n the results section. documented in this encounter Results XR Ribs & Chest [...] Negative. ANNIE GALLOWAY MD Josse Hassan PA-C [facility] documented in this encounter Visit Diagnoses Diagnosis Rib pain on right side Chest pain, unspecified documented in this encounter Additional Health Concerns Assessment Noted Time PHQ-9 Depression Total Score: 15 04/08/2018 7:11 AM CD T documented as of this encounter Care Teams Broadcast Journalist Relationship Specialty Start Date End Date Viri Gallardo, PCP - General Nurse Practitioner 06/29/17 04/14/20 HEAVY EQUIPMENT SUPERVISOR COMMERCIAL INSTALLER [address] [facility] [place] [address] Viri Gallardo, PCP - Assigned PCP 09/12/17 12/13/[address] [place] [address] Viri Gallardo, Assigned PCP 09/12/1709/[address] [place] [address] documented as of this encounter
--- OUTSIDE RECORDS SUMMARY | 2022-09-05 18:56 | XMS_ITS | Encounter Summary ---
:1995 Author Organization [facility] Address [address] [place] [address] Care Team Providers Name Role Phone Viri Gallardo APRN, CNP Primary Care Provider [phone] Viri Gallardo APRN CYCLE SPECIALIST Unavailable [phone] Viri Gallardo APRN, CNP Unavailable [phone] Reason for Visit Reason Comments Medication Refill chantix Encounter Details Date Type Department Care Team Description 05/02/2018 Refill [facility] Viri Gallardo Medication Refill Clinic Jesu Nicole APRN CNP (chantix ) [address] [facility] [address] [place] [address] [place] [id number] [phone] Social History Tobacco Use Types Packs/Day Years [...] Telephone Encounter - Aneta Varghese MA - 05/06/2018 1:46 PM CDT Called patient and scheduled appointment for 05/12/18 at 10am. Aneta Varghese CMA Telephone Encounter - Viri Gallardo APRN CNP - 05/05/2018 5:06 PM CDT Needs to schedule but filled continuing pack Telephone Encounter - Sarah Blanchard RN - 05/05/2018 3:50 PM CDT Per office appointment note of 04/07/18-Agreed to start Chantix but with great caution. She states she did not have any trouble with it in the past. However, she was on lamictal at the time. Given her strong motivation to quit, I think the benefits outweigh the risks. While she does have severe anxiety currently she has no manic behaviors or suicidal thinking. She agrees to have a phone visit in 1 week and to have a friend monitor her daily for worsening mental health. She will stop the Chantix immediately if any worsening of mood. ?? Patient was reminded at appointment in April with Vonnie that she needs to schedule a phone visit for follow-up. Patient reports that she feels that the Chantix has helped improve her depression. Patient has decreased her smoking. Will still smoke when she is having drinks. Has completed the stater pack and is asking for refill. Order pended for continuing pack. Advised of need for phone visit-asking if she can get refill now and schedule this later? Robyn Blanchard RN Telephone Encounter - Merry Bush CMA - 05/02/2018 3:14 PM CDT Requested Prescriptions Pending Prescriptions Disp Refills ? ? CHANTIX STARTING MONTH MARNIE 0.5 MG X 11 & 1 MG X 42 tablet [Pharmacy Med Name: CHANTIX STARTING MONTH BOX] Last Written Prescription Date: 04/07/18 Last Fill Quantity: 56, # refills: 0 Last office visit: 04/21/2018 with prescribing provider: Sonya Future Office Visit: 0 Sig: TAKE 0.5 MG TAB DAILY FOR 3 DAYS, THEN 0.5 MG TAB TWICE DAILY FOR 4 DAYS, THEN 1 MG TWICE DAILY. Partial Cholinergic Nicotinic Agonist Agents Passed 05/02/2018 10:47 AM Passed - Blood pressure under 140/90 in past 12 months BP Readings from Last 3 Encounters: 04/21/18 116/50 04/14/18 102/60 04/07/18 108/66 Passed - Recent (12 mo) or future (30 days) visit within the authorizing provider's specialty Patient had office visit in the last 12 months or has a visit in the next 30 days with authorizing provider or within the authorizing provider's specialty. See Patient Info tab in inbasket, or Choose Columns in Meds & Orders section of the refill encounter. Passed - Patient is 18 years of age or older Passed - Patient is not Passed - No positive test on file in past 12 months documented in this encounter Plan of Treatment Not on filedocumented as of this encounter Visit Diagnoses Diagnosis Encounter for tobacco use cessation coun seling documented in this encounter Additional Health Concerns Assessment Noted Time PHQ-9 Depression Total Score: 15 04/08/2018 7:11 AM CD T documented as of this encounter Care Teams Yardage Control Operator Forming Relationship Specialty Start Date End Date Viri Gallardo, PCP - General Nurse Practitioner 06/29/17 04/14/20 [place] [id number] [facility] [place] [id number] Viri Gallardo, PCP - Assigned PCP 09/12/17 12/13/18 [employer]AR [employer]AT SPRAYER CYCLE SPECIALIST [address] [facility] [place] [address] Viri Gallardo, Assigned PCP 09/12/1709/16 [facility] CYCLE SPECIALIST [address] [facility] [place] [id number] documented as of this encounter
--- OUTSIDE RECORDS SUMMARY | 2022-09-05 18:56 | XMS_ITS | Encounter Summary ---
:1995 Author Organization [facility] Address [address] [place] [address] Care Team Providers Name Role Phone Viri Gallardo APRN, CNP Primary Care Provider [phone] Viri Gallardo APRN CASE PACKER AND SEALER Unavailable [phone] Viri Gallardo APRN CASE PACKER AND SEALER Unavailable [phone] Encounter Details Date Type Department Care Team Description 09/16/2018 Telephone [facility] Viri Gallardo [place] APRN CASE PACKER AND SEALER [address] [facility] [address] [facility] [address] [place] [address] [place] [phone] Social History Tobacco Use Types Packs/Day Years [...] documented as of this encounter Care Teams Pleat Taper Relationship Specialty Start Date End Date Viri Gallardo, PCP - General Nurse Practitioner 06/29/17 04/14/20 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
--- OUTSIDE RECORDS SUMMARY | 2022-09-05 18:56 | XMS_ITS | Encounter Summary ---
:1995 Author Organization [facility] Address [address] [place] [address] Care Team Providers Name Role Phone Viri Gallardo APRN, CNP Primary Care Provider [phone] Viri Gallardo APRN MACHINE PECAN PICKER Unavailable [phone] Viri Gallardo APRN, CNP Unavailable [phone] Reason for Visit Reason Comments Sleep Problem Encounter Details Date Type Department Care Team Description 06/30/2018 Office Visit [facility] Johnathon Wu Other i nsomnia (Primary Dx); Clinic Jesu Schofield MD examination or test, unconfirmed; [address] Non- intractable vomiting with nausea, unspecified vomiting type [address] [facility] [address] [place], [place] [id number] [phone] (Wo rk) Social History Tobacco Use Types [...] Sign Reading Time Taken Comments Blood Pressure 106/70 06/30/2018 8:57 AM CDT Pulse 90 06/30/2018 8:57 AM CDT Temperature 36.8 ??C (98.3 ??F) 06/30/2018 8:57 AM CDT Respiratory Rate - - Oxygen Saturation 98% 06/30/2018 8:57 AM CDT Inhaled Oxygen Concentration - - Weight 54 kg (119 lb) 06/30/2018 8:57 AM CDT Height 160 cm (5' 3) 06/30/2018 8:57 AM CDT Body Mass Index 21.08 06/30/2018 8:57 AM CDT documented in this encounter Patient Instructions Patient InstructionsViri Rubi MD - 06/30/2018 9:49 AM CDT Images from the original note were not included. 1. Set consistent wake time every day of the week, which will help with being able to consistently fall asleep at the same time every night. 2. Try to eliminate alcohol first, then energy drinks, then coffee. 3. No screen time for 1-2 hours before bed. 4. No night time snacks after dinner 5. Keep a sleep diary with times you go to bed and wake. 6. Repeat home urine test in 5 days. 7. Follow up with us as necessary. Insomnia Insomnia is repeated difficulty going to sleep or staying asleep, or both. Whether you have insomniais not defined by a specific amount of sleep. Different people need different amounts of sleep, and you may need more or less sleep at different times of your life. There are??3 major types of insomnia:?? short-term, chronic, and ???other.? Short-term, or acuteinsomnia lasts less than??3 months.?? The symptoms are temporary and can be linked directly to a stressor, such as the of a loved one, financial problems, or a new physical problem.?? Short-term insomnia stops when the stressor resolves or the person adapts to its presence. Chronic insomnia occurs at least??3 times a week and lasts longer than 3 months.?? Chronic insomnia can occur when either the cause of the sleeping problem is not clear, or the insomnia does not get better when the stressor is resolved. A number of other criteria are also used to make the diagnosis of chronic insomnia.?Other insomnia?? is the third type of insomnia-related sleep disorders.?? This description applies to people who have problems getting to sleep or staying asleep, but do not meet all of the factorsthat describe either short-term or chronic insomnia.? Many things cause insomnia. Different people may have different causes. It can be from an underlyingmedical or psychological condition, or lifestyle. It can also be primary insomnia, which means no cause can be found. Causes of insomnia include: ?? Chronic medical problems- heart disease, gastrointestinal problems, hormonal changes, breathing problems ?? Anxiety ?? Stress ?? Depression ?? Pain ?? Work schedule ?? Sleep apnea ?? Illegal drugs ?? Certain medicines Many different medidcines can affect your sleep, such as stimulants, caffeine, alcohol, some decongestants, and diet pills. Other medicines may include some types of blood pressure pills, steroids, asthma medicines, antihistamines, antidepressants, seizure medicines and statins. Not all of these will affect your sleep,??and they shouldn???t be stopped without talking to your doctor. Symptoms of insomnia can include: ?? Lying awake for long periods at night before falling asleep ?? Waking up several times during the night ?? Waking up early in the morning and not being able to get back to sleep ?? Feeling tired and not refreshed by sleep ?? Not being able to function properly during the day and finding it hard to concentrate ?? Irritability ?? Tiredness and fatigue during the day Home care ?? Review your medicines with your doctor or pharmacist to find out if they can cause insomnia. Not all medicines will affect your sleep,??but they shouldn't be stopped without reviewing them with yourdoctor. There may be serious side effects and consequences from suddenly stopping your medicines. Not taking them may cause strokes, heart attacks, and many other problems. ?? Caffeine, smoking and alcohol also affect sleep. Limit your daily use and do not use these beforebedtime. Alcohol may make you sleepy at first, but as its effects wear off, you may awaken a few hours later and have trouble returning to sleep. ?? Do not exercise, eat or drink large amounts of liquid within 2 hours of your bedtime. ?? Improve your sleep habits. Have a fixed bed and wake-up time. Try to keep noise, light and heat in your bedroom at a comfortable level. Try using earplugs or eyeshades if needed.? Avoid watching TV in bed. ?? If you do not fall asleep within 30 minutes, try to relax by reading or listening to soft music. ?? Limit daytime napping to one 30 minute period, early in the day. ?? Get regular exercise. Find other ways to lessen your stress level. ?? If a medicine was prescribed to help reset your sleep patterns, take it as directed. Sleeping pills are intended for short-term use, only. If taken for too long, the effect wears off while the risk of physical addiction and psychological dependence increases. Sleep diary If the cause isn???t obvious and it is not improving, try keeping a ???sleep diary?? for a couple of weeks. Include in it: ?? The time you go to bed ?? How long it takes to fall asleep ?? How many times you wake up ?? What time you wake up ?? Your meal times and what you eat ?? What time you drink alcohol ?? Your exercise habits and times Follow-up care Follow up with your healthcare provider, or as advised. If X-rays or CT scans were done, you will benotified if there is a change in the reading, especially if it affects treatment. Call 911 Call 911 if any of these occur: ?? Trouble breathing ?? Confusion or trouble waking ?? Fainting or loss of consciousness ?? Rapid heart rate ?? New chest, arm, shoulder, neck or upper back pain ?? Trouble with speech or vision, weakness of an arm or leg ?? Trouble walking or talking, loss of balance, numbness or weakness in one side of your body, facial droop When to seek medical advice Call your healthcare provider right away if any of these occur: ?? Extreme restlessness or irritability ?? Confusion or hallucinations (seeing or hearing things that are not there) ?? Anxiety, depression ?? Several days without sleeping Date Last Reviewed: 08/29/2015 ?? [id number] [employer]. [address] [place] [address], [place] [address]. All rights reserved. This information is not intended as a substitute for professional medical care. Always follow your healthcare professional's instructions. Treating Insomnia Good sleeping habits are a mast part of treatment. If needed, some medications may help you sleep better at first. Making healthy lifestyle changes and learning to relax can improve your sleep. Treatinginsomnia takes commitment, but trust that your efforts will pay off. Talk to your health care provider before taking any medication. Healthy Lifestyle Your lifestyle affects your health and your sleep. Here are some healthy habits: ?? Keep a regular sleep schedule. Go to bed and get up at the same time each day. ?? Exercise regularly. It may help you reduce stress. Avoid strenuous exercise for two to four hoursbefore bedtime. ?? Avoid or limit naps. ?? Use your bed only for sleep and sex. ?? Don???t spend too much time in bed trying to fall asleep. If you can???t fall asleep, get up and do something until you become tired and drowsy. ?? Avoid or limit caffeine and nicotine. They can keep you awake at night. Also avoid alcohol. It may help you fall asleep at first, but your sleep will not be restful. Before Bedtime To sleep better every night, try these tips: ?? Have a bedtime routine to let your body and mind know when it???s time to sleep. ?? Going to bed should be relaxing so try to do only relaxing things around bedtime. Sleep will comesooner. ?? If your worries don???t let you sleep, write them down in a diary. Then close it, and go to bed. ?? Make sure the room is not too hot or too cold. If it???s not dark enough, an eye mask can help. If it???s noisy, try using earplugs. Learn to Relax Stress, anxiety, and body tension may keep you awake at night. To unwind before bedtime, try readinga book,??meditation, or yoga. Also, try the following: ?? Deep breathing. Sit or lie back in a chair. Take a slow, deep breath. Hold it for 5 counts. Then breathe out slowly through your mouth. Keep doing this until you feel relaxed. ?? Imagery. Think of the last fun trip you took. In your mind, walk through the trip from start to finish. Put as much detail into the memory as you can remember. It will help you relax. Cognitive Behavioral Therapy (CBT) CBT is the most effective treatment for long-term insomnia. It tries to address the underlying causes of your sleep problems, including your habits and how you think about sleep.?? Individual Therapy Paul Mccartney, PhD Insomnia Manufacturing Chief Engineer [facility] ?? [facility]: [phone] ?? [facility]: [phone] Group Therapy Dates and times to be announced. Online Programs ?? www.[employer] (pronounced shut eye). There is a fee for this program. Enter the code ???[facility]?? if you decide to enroll in this program. ?www.[employer] (pronounced sleep ee oh). There is a fee for this program. Enter the code ???[facility]?? if you decide to enroll in this program. Suggested Resources Insomnia Treatment Books: ?? Overcoming Insomnia by Rishi Mclaughlin and Khushi Gunderson (2008) ?? No More Sleepless Nights by Richard Hsieh and Benita Nunez (1995) ?? Say Javy to Insomnia by Anmol Gutiérrez (2009) ?? The Insomnia Workbook by Akanksha Smiley and Faisal Echols (2009) ?? The Insomnia Answer by Meng Ortega and Buzz Covarrubias (2006)? Stress Management and Relaxation Books: ?? The Relaxation and Stress Reduction Workbook by Shyla Osei, Digna Roblero and Donald Michaels (2008) ?? Stress Management Workbook: Techniques and Self-Assessment Procedures by Randi Saunders and Justo Becerra (1996) ?? A Mindfulness-Based Stress Reduction Workbook by Jerry Harden and Ashwini Reeves (2010) ?? The Complete Stress Management Workbook by Joaquim Gonzalez, Zane Landry and Ra Rivera (1995) ?? Assert Yourself by Ena Devlin and Rajat Devlin (1976) Relaxation Resources for Computer Download These websites offer resources to help you relax. This list is for information only. [facility] is notresponsible for the quality of services or the actions of any person or organization Progressive Muscle Relaxation (PMR): ?? http://www.[employer])/noxynyexviz-fxddkh-iiilnwemfd-exercise.html ?? http://studentsupport.[facility]/counseling/resources/self-help/relaxat mmm-fgg-mhslrj-management/ Deep Breathing Exercises: ?? http://www.[employer])/breathing-awareness.html Meditation:? www.[employer] ?? www.vhr-wzpaqu-skptnykcsw-site.com You may have to pay for some of these resources. Guided Imagery: ?? http://www.[employer])/kospzn-vwtlufw-kivztwz.html ?? http://[employer]/library/fhodsezstb-ibiedb-swdeitq/ Counseling / Behavioral Health [facility] Visit www.[employer] or call [phone] to find a clinic close to you.?? This is not a prescription and these resources are optional. You must pay for any costs when using these resources. Please ask your insurance carrier if you can be reimbursed for these resources. If so, you are responsible for sending the needed details to your insurance carrier. These resources may also be tax deductible as medical expenses. Check with your tax director. These programs and publications are not affiliated in any way with [employer]. ?? [id number] [employer]. [address] [place] [address]. All rights reserved. This information is not intended as a substitute for professional medical care. Always follow your healthcare professional's instructions. This information has been modified by your health care provider with permission from the publisher. documented in this encounter Progress Notes Johnathon Wu MD - 06/30/2018 8:45 AM CDT SUBJECTIVE: CC: Insomnia; nausea/vomiting/hot flashes HPI: Ms. Joel Amos is a 23 y.o. F with a history of anxiety, bipolar II disorder, migraine, and substance use (currently only smokes cannabis) who presents to clinic today for ongoing insomnia for the past 1.5-2 weeks, as well as 4 days of nausea, vomiting, and hot flashes. The patient reports that for the past 1.5-2 weeks she has been unable to fall asleep. She goes to bed at 11 PM every night and lies in bed until 3 AM. She sometimes snacks in the evening. She also routinely drinks 1 can of beer at night. She does look at a phone before bed. However, her bedroom is completely dark. She puts on a [place] playlist with natural sounds like rain. Sometimes she gets up andgoes to the couch to watch television. She wakes up between 6 and 8 AM, closer to 6 AM on weekdays and closer to 8 AM on the weekend. She routinely takes her medications at 7 AM. He drinks a large cup of coffee in the morning. She will rarely take naps with her children during the day. She has been feeling tired during the day. Except for starting varenicline (1 mg BID) ~3 months ago to help quit smoking, hydroxyzine 25 mg BID ~2 months ago to help with anxiety, and melatonin ~2 weeks ago for the insomnia, the patient has not started any other new medications. She has been smoking marijuana more candace quently in the past couple of weeks to help with her insomnia, and even more frequently in the past 4 days when she says that she began experiencing nausea, heat flashes, and a single episode of emesisyesterday when getting out of her car. For the nausea/vomiting, she has tried Tums without relief. She reports 2 instances of unprotected sex (06/20/2018 and 06/23/2018) with her fiance (set to wed on 06/14/2020). She is not actively trying to get but is open to getting with her current partner. Her last menstrual period was June 07- (periods generally last 4 days). She denies any new stressors in life, although she does like to keep busy. 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 She works 7 days/wk, 40+ hrs/wk (60 hrs last week). She is also in school for [employer] (started end of May) for which she attends in-person class Wednesday- (12:30 - 4:30 PM) and online classes, which totals ~40 hrs/wk. She has plenty of social support in the way of her entire family who lives in [place]. Her grandmother, for instance, sometimes helps with her two children. She says her anxiety has been well-controlled on the hydroxyzine. She plans to start seeing a new therapist at [facility] in [place] on July 14. She was previously seeing a therapist regularly at [facility] (most recently 2 weeks ago), but she was frustrated because providers there were reportedly not accepting of her marijuana use. Habits: Patient has not smoked a cigarette for 3 months (since she started varenicline). She does smoke marijuana daily. She started smoking at the age of 17, daily 2 years ago, and more frequently in the past 2 weeks. She denies any other illicit drug use, (although she did previously use methamphetamine and Ermelinda). She drinks 1 beer/night. Social History: Patient has 2 children (twins) with her ex-partner: Genesis and Sade, who are 3 years old and currently in preschool (on Tuesdays and ). She has the children Wednesday-Wednesday, and her ex-partner has the children Wednesday-. ROS notable for sick contacts (classmates/teacher with runny nose, cough, sneezing, fever). She denies any fevers or night sweats. She endorses occasional chills with her hot flashes. She endorses rigors when hungry. She reports poor appetite in the past week but good appetite in the past year. She reports a 10- lb weight gain in the past month, 16 lbs in the past year (reports that she previously struggled with anorexia, weighing 104 lbs last year). She denies depressed mood or anxiety. She reports chronically irregular bowel movements that are sometimes loose and sometimes hard in consistency. OBJECTIVE: BP 106/70 (BP Location: Right arm, Cuff Size: Adult Regular) Pulse 90 Temp 98.3 ??F (36.8 ??C) Ht 5' 3 (1.6 m) Wt 119 lb (54 kg) SpO2 98% BMI 21.08 kg/m2 Body mass index is 21.08 kg/(m^2). GENERAL: young, healthy-appearing woman sitting in NAD; pleasant, interactive; occasionally yawning HEENT: NC/AT; EOEMi; pupils equal, round PULM: lungs clear to auscultation - no rales, rhonchi or wheezes CV: regular rate and rhythm, normal S1 S2, no S3 or S4, no murmur, click or rub, radial pulse 2+ bilaterally ABDOMEN: +bowel sounds; soft, non-tender, non-distended MS: no gross musculoskeletal defects noted, no edema NEURO: alert and oriented to conversation PSYCH: well-groomed, dressed casually; mood good, tired; full range of affect Diagnostic Test Results: Results for orders placed or performed in visit on 06/30/18 (from the past 24 hour(s)) Beta HCG qual IFA urine Result Value Ref Range Beta HCG Qual IFA Urine Negative NEG^Negative ASSESSMENT/PLAN: Ms. Joel Amos is a 23 y.o. F with a history of anxiety, bipolar II disorder, migraine, and substance use (currently only smokes cannabis) who presents to clinic today for 1.5-2 weeks of insomnia, as well as 4 days of nausea, hot flashes, and a single episode of emesis yesterday 06/29/2018. Insomnia Certainly, there are aspects of the patient's sleep hygiene that can be adjusted to optimize sleep, namely eliminating alcohol intake at night, eliminating snacks after dinner or 8 PM (since patient reports eating dinner at 4 PM), eliminating screen time 1-2 hours before bedtime, and reducing or eliminating caffeine intake in the way of coffee and energy drinks. Most importantly, patient can set a consistent wake time to help with sleep. In terms of medications, melatonin has not been helpful, and alternative pharmacologic options are not great generally speaking but especially given patient's history of substance use. Keeping a sleep diary can also be helpful with future follow-up. - Set consistent wake time every day of the week, which will help with being able to consistently fall asleep at the same time every night. - Try to eliminate alcohol first, then energy drinks, then coffee. - No screen time for 1-2 hours before bed. - No night time snacks after dinner or 8 PM - Keep a sleep diary with documented bed- and wake times - Printed and provided handout with patient information concerning insomnia - Follow up with therapist and/or us as necessary. Nausea, vomiting, hot flashes The DDx for these symptoms includes gastroenteritis (given sick contacts), anxiety, cannabinoid hyperemesis syndrome (given recent increase in smoking to help with insomnia), and/or , especially in the setting of recent unprotected sex around the time of ovulation (LMP 06/07/2018-06/10/2018). - Urine test - NEGATIVE - Called patient ([phone]) to notify her of result ~10:45 AM - Counseled that increased marijuana use may be contributed to these symptoms of nausea and vomiting - Counseled patient to take vitamins and eliminate alcohol and smoking marijuana altogetherif she is actively or passively trying to get . - Instructed patient to repeat at-home urine test in 5 days to confirm that she is not . ICD-10-CM 1. Other insomnia G47.09 2. examination or test, unconfirmed Z32.00 hCG qual urine POCT Beta HCG qual IFA urine 3. Non-intractable vomiting with nausea, unspecified vomiting type R11.2 Follow up as necessary. Johnathon Wu MD PGY-1 Internal Medicine/Pediatrics Pager , 06/30/2018 [facility] Patient was seen and staffed with the attending physician, Dr. Rubi, who agrees with the assessment and plan as outlined above. Attestation: I have seen patient and reviewed the documentation from Dr. Wu and discussed the findings with Dr. Wu. I agree with the documentation of Dr. Wu. Viri Rubi MD Internal Medicine/Pediatrics [facility] documented in this encounter Plan of Treatment Scheduled Orders Name Type Priority Associated Diagnoses Order S chedule hCG qual urine Point of Care Routine examination Ord ered: 06/30/2018 POCT Testing or test, unconfirmed documented as of this encounter Procedures Procedure Name Priority Date/Time Associated Diagnosis Comme nts BETA HCG QUALITATIVE Routine 06/30/2018 10:35 Res ults for this IFA URINE AM CDT examination or test, procedu re are in the results unconfirmed section. documented in this encounter Results Beta HCG qual IFA urine (06/30/2018 10:35 AM CDT) P athologist Signature Beta HCG Qual Negative NEG^Negati 06/30/2018 [place] IFA Urine ve 10:40 AM CDT [facility] Specimen Anatomical Collection Method Collection Time Receive d Time (Source) Location / / Volume Laterality Urine specimen 06/30/2018 10:35 8 (specimen) AM CDT 10:37 AM CDT Viri Rubi MD LAB - URINE ORDERABLES Performing Organization Address City/State/ZIP Code Phon e Number [facility] [address] [facility] [place] [address] [phone] documented in this encounter Visit Diagnoses Diagnosis Other insomnia - Primary examination or test, unconfirmed Non-intractable vomiting with nausea, un specified vomiting type documented in this encounter Additional Health Concerns Assessment Noted Time PHQ-9 Depression Total Score: 15 04/08/2018 7:11 AM CD T documented as of this encounter Care Teams Ui Programmer Relationship Specialty Start Date End Date Viri Gallardo, PCP - General Nurse Practitioner 06/29/17 04/14/20 PHARMACEUTICAL SALES SPECIALIST MACHINE PECAN PICKER [address] [facility] [place] [address] Viri Gallardo, PCP - Assigned PCP 09/12/17 12/13/18 PHARMACEUTICAL SALES SPECIALIST MACHINE [employer]ECAN [employer]ICKER [address] [facility] [place] [address] Viri Gallardo, Assigned PCP 09/12/1709/16 PHARMACEUTICAL SALES SPECIALIST MACHINE PECAN PICKER [address] [facility] [place] [id number] documented as of this encounter
--- OUTSIDE RECORDS SUMMARY | 2022-09-05 18:56 | XMS_ITS | Encounter Summary ---
:1995 Author Organization [place] Address [address] [place] [address] Care Team Providers Name Role Phone Viri Gallardo APRN, CNP Primary Care Provider [phone] Viri Gallardo APRN KOSHER DIETARY SERVICE MANAGER Unavailable [phone] Viri Gallardo APRN, CNP Unavailable [phone] Reason for Referral Consultation - Closed Specialty Diagnoses / Procedures Referred By Contact Refer red To Contact Podiatry Diagnoses Jed Roach MD [address] [place] [address] [place] [address] [place], [place] [phone] Phone: Fax: Referral ID Status Reason Start Date Expiration Date Visits Requ ested Visits Authorized [id number] Closed 07/28/2018 07/28/2019 1 1 Reason for Visit Reason Comments Mass Encounter Details Date Type Department Care Team Description 07/28/2018 Office Visit [facility] Jed Cabezas MD LAD (lymphadenopathy) (Primary Dx); [address] [address] [address] [place] [address] (Work) [phone] Social History Tobacco Use Types Packs/Day Years [...] Sign Reading Time Taken Comments Blood Pressure 102/64 07/28/2018 8:29 AM CDT Pulse 64 07/28/2018 8:29 AM CDT Temperature 36.7 ??C (98 ??F) 07/28/2018 8:29 AM CDT Respiratory Rate - - Oxygen Saturation 99% 07/28/2018 8:29 AM CDT Inhaled Oxygen Concentration - - Weight 54.4 kg (120 lb) 07/28/2018 8:29 AM CDT Height 160 cm (5' 3) 07/28/2018 8:29 AM CDT Body Mass Index 21.26 07/28/2018 8:29 AM CDT documented in this encounter Patient Instructions Patient InstructionsJed Cabezas MD - 07/28/2018 8:20 AM CDT With repect to your lymph node, it was 2.5 cm on left. Let's monitor it for any increase in size, pain, fevers, chills, sweats, or immobility. Follow up in 3 months for a recheck of size. Jed Cabezas MD Internal Medicine and Pediatrics documented in this encounter Progress Notes Jed Cabezas MD - 07/28/2018 8:20 AM CDT SUBJECTIVE: Joel Amos is a 23 year old female who presents to clinic today for the following health issues: Pt states to have inflamed lymph node after getting a tattoo a few weeks ago. Tattoo is on left thigh, lymph node is in groin. Tender to touch but more so just bothersome. Had swollen left lymphadenopathy after her left thigh tattoo; got the tattoo about 07/04. Went to hospital and got antibiotic (rocephin), followed by cephalexin. Improved, but lymphadenopathy still present. Nontender, just palpable by patient; she is concerned about this. It is about 2-2.5 cm in diameter, mobile, rubbery. No fevers, chills, or sweats. Also has some bunions that she'd like looked at. Problem list and histories reviewed & adjusted, as indicated. Additional history: as documented Patient Active Problem List Diagnosis ??? Migraine ??? Health Halfway ??? Pain in joint, pelvic region and thigh ??? Moderate episode of recurrent major depressive disorder (H) ??? Moderate bipolar II disorder, most recent episode major depressive (H) ??? Cannabis abuse, continuous - Mild ??? Papanicolaou smear of cervix with low grade squamous intraepithelial lesion (LGSIL) ??? ERRONEOUS ENCOUNTER--DISREGARD History reviewed. No pertinent surgical history. Social History Substance Use Topics ??? Smoking status: Former Smoker Packs/day: 0.25 ??? Smokeless tobacco: Never Used ??? Alcohol use 0.0 oz/week 0 Standard drinks or equivalent per week Comment: states I don't even know re how many a week Family History Problem Relation Age of Onset ??? Hypertension Mother ??? Diabetes Maternal Grandmother ??? Hypertension Maternal Grandmother ??? Hypertension Maternal Grandfather ??? Diabetes Maternal Grandfather ??? Cancer Paternal Uncle Current Outpatient Prescriptions Medication Sig Dispense Refill [...] Max 2 tablets/24 hours. 18 tablet 3 No Known Allergies BP Readings from Last 3 Encounters: 07/28/18 102/64 07/14/18 104/56 07/08/18 116/82 Wt Readings from Last 3 Encounters: 07/28/18 120 lb (54.4 kg) 07/14/18 118 lb (53.5 kg) 07/07/18 120 lb (54.4 kg) Labs reviewed in [facility] Reviewed and updated as needed this visit by clinical staff Reviewed and updated as needed this visit by Provider ROS: CONSTITUTIONAL: NEGATIVE for fever, chills, change in weight ENT/MOUTH: NEGATIVE for ear, mouth and throat problems RESP: NEGATIVE for significant cough or SOB CV: NEGATIVE for chest pain, palpitations or peripheral edema OBJECTIVE: BP 102/64 (BP Location: Right arm, Cuff Size: Adult Regular) Pulse 64 Temp 98 ??F (36.7 ??C) (Oral) Ht 5' 3 (1.6 m) Wt 120 lb (54.4 kg) SpO2 99% BMI 21.26 kg/m2 Body mass index is 21.26 kg/(m^2). GENERAL: healthy, alert, well nourished, well hydrated, no distress HENT: ear canals- normal; TMs- normal; Nose- normal; Mouth- no ulcers, no lesions NECK: no tenderness, no adenopathy, no asymmetry, no masses, no stiffness; thyroid- normal to palpation RESP: lungs clear to auscultation - no rales, no rhonchi, no wheezes CV: regular rates and rhythm, normal S1 S2, no S3 or S4 and no murmur, no click or rub - ABDOMEN: soft, no tenderness, no hepatosplenomegaly, no masses, normal bowel sounds Diagnostic test results: Diagnostic Test Results: none ASSESSMENT/PLAN: 1. Bunion Patient requesting a referral to orthopedics. Referred. - [facility] REFERRAL 2. LAD (lymphadenopathy) Currently 2.5 cm. No concerning characteristics of hardness, pain. Actually improving in size from previously. Will monitor with follow up in 3 months; is likely just a reactive lymph node due to her tatoo on nearby thigh. See Patient Instructions Jed Cabezas MD [facility] documented in this encounter Plan of Treatment Not on filedocumented as of this encounter Visit Diagnoses Diagnosis LAD (lymphadenopathy) - Primary Bunion documented in this encounter Additional Health Concerns Assessment Noted Time PHQ-9 Depression Total Score: 15 04/08/2018 7:11 AM CD T documented as of this encounter Care Teams Sock Ironer Relationship Specialty Start Date End Date Viri Gallardo, PCP - General Nurse Practitioner 06/29/17 04/14/20 DRILLER HELPER KOSHER DIETARY SERVICE MANAGER [address] [facility] [place] [address] Viri Gallardo, PCP - Assigned PCP 09/12/17 12/13/18 DRILLER HELPER KOSHER DIETARY SERVICE MANAGER [address] [facility] [place] [address] Viri Gallardo, Assigned PCP 09/12/1709/16 DRILLER HELPER KOSHER DIETARY SERVICE MANAGER [address] [facility] [place] [address] documented as of this encounter
--- OUTSIDE RECORDS SUMMARY | 2022-09-05 18:56 | XMS_ITS | Encounter Summary ---
:1995 Author Organization [place] Address [address] [place] [address] Care Team Providers Name Role Phone Viri Gallardo APRN, CNP Primary Care Provider Viri Gallardo APRN BRAIDING MACHINE OPERATOR Unavailable [phone] Reason for Visit Reason Comments Urgent Care Pharyngitis st, headache x5-6 days, know n strep exposure Encounter Details Date Type Department Care Team Description 12/23/2018 Office Visit [facility] Maxim Yost M D Throat pain (Primary Urgent Care [place] 2019 E Dx) [address] [facility] [address] [place], [place] [address] [address] [place] [address] Social History Tobacco Use Types [...] Sign Reading Time Taken Comments Blood Pressure 108/64 12/23/2018 9:25 AM CDT Pulse 87 12/23/2018 9:25 AM CDT Temperature 36.9 ??C (98.4 ??F) 12/23/2018 9:25 AM CDT Respiratory Rate - - Oxygen Saturation 99% 12/23/2018 9:25 AM CDT Inhaled Oxygen Concentration - - Weight 51.6 kg (113 lb 12.8 oz) 12/23/2018 9:25 AM CDT Height - - Body Mass Index 20.16 09/16/2018 1:23 PM COUNTER CONTROL OPERATOR documented in this encounter Patient Instructions Patient InstructionsMaxim Yost MD - 12/23/2018 9:10 AM CDT Tylenol, Ibuprofen for throat discomfort and headache follow up with your primary care provider if not better in 7-10 days. Ice-cold water to soothe the throat pain. Warm saltwater gargles to soothe the throat. documented in this encounter Progress Notes Maxim Yost MD - 12/23/2018 9:10 AM CDT SUBJECTIVE: Joel Amos is a 23 year old female with a chief complaint of sore throat (moderate discomfort)and headache (all over the head). Onset of symptoms was 4-5 days ago. No fevers. Current and Associated symptoms: nausea for about the past week. She started Abilify for the first time two weeks ago. Treatment measures tried include Advil, sumatriptan. Predisposing factors include recent exposure to her daughter with strep throat. . Past Medical History: Diagnosis Date ??? Anxiety [...] Medications Medication Sig Dispense Refill ??? albuterol (PROVENTIL) (2.5 MG/3ML) 0.083% neb solution Take 1 vial (2.5 mg) by nebulization every 6 hours as needed for shortness of breath / dyspnea or wheezing 25 vial 0 ??? ARIPiprazole (ABILIFY) 5 MG tablet ??? etonogestrel-ethinyl estradiol (NUVARING) 0.12-0.015 MG/24HR vaginal ring Place 1 each vaginallyevery 28 days ??? SUMAtriptan (IMITREX) 100 MG tablet Take 1 tablet (100 mg) by mouth at onset of headache for migraine May repeat in 2 hours. Max 2 tablets/24 hours. 18 tablet 3 ??? albuterol (PROAIR HFA/PROVENTIL HFA/VENTOLIN HFA) 108 (90 Base) MCG/ACT inhaler Inhale 2 puffs into the lungs every 6 hours as needed for shortness of breath / dyspnea or wheezing (Patient not taking: Reported on 12/23/2018) 1 Inhaler 0 ??? fluticasone (FLOVENT DISKUS) 50 MCG/BLIST AEPB Inhale 1 puff into the lungs every 12 hours (Patient not taking: Reported on 09/16/2018) 120 Inhaler 0 ??? ibuprofen (ADVIL/MOTRIN) 200 MG tablet Take 2 tablets (400 mg) by mouth every 6 hours as needed for pain (Patient not taking: Reported on 09/16/2018) 60 tablet 0 Social History Tobacco Use ??? Smoking status: Former Smoker Packs/day: 0.25 ??? Smokeless tobacco: Never Used Substance Use Topics ??? Alcohol use: Yes Alcohol/week: 0.0 oz Comment: states I don't even know re how many a week ROS: CONSTITUTIONAL:NEGATIVE for fever, chills, change in weight INTEGUMENTARY/SKIN: NEGATIVE for worrisome rashes, moles or lesions EYES: positive for light sensitivity since starting Abilify two weeks ago. ENT/MOUTH: POSITIVE for throat discomfort. RESP:POSITIVE for some coughing last week and this morning. OBJECTIVE: BP 108/64 Pulse 87 Temp 98.4 ??F (36.9 ??C) (Oral) Wt 51.6 kg (113 lb 12.8 oz) SpO2 99% BMI 20.16 kg/m?? GENERAL APPEARANCE: healthy, alert and no distress HENT: ear canals and TM's normal. Pharynx erythematous with no exudate noted. NECK: supple, non-tender to palpation, no adenopathy noted RESP: lungs clear to auscultation - no rales, rhonchi or wheezes CV: regular rates and rhythm, normal S1 S2, no murmur noted Rapid Strep test is negative; await throat culture results. ASSESSMENT: Throat pain PLAN: Symptomatic treat with gargles, lozenges, and OTC analgesic as needed. Follow-up with primary clinicif not improving in 7-10 days. . Throat culture is pending. Maxim Yost MD documented in this encounter Plan of Treatment Not on filedocumented as of this encounter Procedures Procedure Name Priority Date/Time Associated Diagnosis Comme nts BETA HEMOLYTIC Routine 12/23/2018 9:45 AM Throat pain Results for this STREP GROUP A CDT procedure are in CULTURE the results section. RAPID STREP SCREEN Routine 12/23/2018 9:13 AM Throat pain Res ults for this THROAT SWAB CDT procedure are i n the results section. documented in this encounter Results Beta strep group A culture (12/23/2018 9:45 AM CDT) Component Value Ref Test Analysis Performed At [facility] gist Range Method Time Signature Specimen Throat [facility] [place] Culture Micro No beta 12/24/2018 LEVELS hemolytic 10:06 AM CLINICS Streptococcus CDT [place] Group A isolated Specimen Anatomical Collection Method Collection Time Receive d Time (Source) Location / / Volume Laterality Specimen from 12/23/2018 9:45 AM 12/24/19 19 9:47 throat CDT AM CDT (specimen) Maxim Yost MD LAB - MICRO GENERAL ORDERABL ES Performing Organization Address City/State/ZIP Code Phon e Number [facility] [place] [address] [place] [address] Rapid strep screen (12/23/2018 9:13 AM CDT) Component Value Ref Test Analysis Performed At [facility] [employer] Range Method Time Signature Specimen Throat [facility] [place] Rapid Strep A NEGATIVE: No 12/23/2018 LEVELS Screen Group A 9:46 AM CDT CLINICS streptococcal [place]ED antigen detected by immunoassay, await culture report. Specimen Anatomical Collection Method Collection Time Receive d Time (Source) Location / / Volume Laterality Specimen from 12/23/2018 9:13 AM 12/24/19 9:14 throat CDT AM CDT (specimen) Maxim Yost MD LAB - MICRO GENERAL ORDERABL ES Performing Organization Address City/State/ZIP Code Phon e Number [facility] [place] [address] [place] [address] [place] [phone] documented in this encounter Visit Diagnoses Diagnosis Throat pain - Primary documented in this encounter Additional Health Concerns Assessment Noted Time PHQ-9 Depression Total Score: 15 09/16/2018 1:27 PM CS T documented as of this encounter Care Teams Oracle Architect Relationship Specialty Start Date End Date Viri Gallardo APRN BRAIDING MACHINE OPERATOR PCP - General Nurse Practitioner 06/29/17 04/14/20 [address] [facility] [place] [address] Viri Gallardo APRN BRAIDING MACHINE OPERATOR Assigned PCP 09/12/17 09/16/[address] [place] [address] [place] [address] documented as of this encounter
--- OUTSIDE RECORDS SUMMARY | 2022-09-05 18:56 | XMS_ITS | Encounter Summary ---
:1995 Author Organization [place] Address [address] [place] [address] Care Team Providers Name Role Phone Viri Gallardo APRN, CNP Primary Care Provider [phone] Viri Gallardo APRN PASTEURIZER HELPER Unavailable [phone] Viri Gallardo APRN, CNP Unavailable [phone] Reason for Visit Diagnostic Imaging XR - Closed Specialty Diagnoses / Procedures Referred By Contact Refer red To Contact Diagnoses Cough Josse Hassan, Procedures XR Chest 2 Views [facility] [address] [place] [address] [place] [address] Referral ID Status Reason Start Date Expiration Date Visits Requ ested Visits Authorized [id number] Closed 04/21/2018 04/21/2019 1 1 Encounter Details Date Type Department Care Team Description 04/21/2018 Radiant Appointment [facility] Josse Hassan [facility] Jesu Urbano PA-C [address] [place] [address] [place] [id number] [phone] Social History Tobacco Use Types Packs/Day Years [...] Comme nts XR CHEST 2 VIEWS Routine 04/21/2018 2:49 PM Cough Resul ts for this CDT procedure are [...] COMPARISON: 10/30/2016 IMPRESSION: No definite acute abnormalit y. BLUE SCHWARTZ MD Josse Hassan PA-C [facility] R[facility] documented in this encounter Visit Diagnoses Diagnosis Cough documented in this encounter Additional Health Concerns Assessment Noted Time PHQ-9 Depression Total Score: 15 04/08/2018 7:11 AM CD T documented as of this encounter Care Teams Hot Braider Relationship Specialty Start Date End Date Viri Gallardo, PCP - General Nurse Practitioner 06/29/17 04/14/20 ETL ARCHITECT PASTEURIZER HELPER [address] [facility] [place] [address] Viri Gallardo, PCP - Assigned PCP 09/12/17 12/13/18 ETL ARCHITECT PASTEURIZER HELPER [address] [facility] [place] [address] Viri Gallardo, Assigned PCP 09/12/1709/16 ETL ARCHITECT PASTEURIZER HELPER [address] [facility] [place] [address] documented as of this encounter
--- OUTSIDE RECORDS SUMMARY | 2022-09-05 18:56 | XMS_ITS | Encounter Summary ---
:1995 Author Organization [place] Address [address] [place] [address] Care Team Providers Name Role Phone Viri Gallardo APRN, CNP Primary Care Provider [phone] Viri Gallardo APRN OUTBOARD MOTOR INSPECTOR Unavailable [phone] Viri Gallardo APRN, CNP Unavailable [phone] Reason for Visit Reason Onset Date Comments Call Back 06/28/2018 Patient call Encounter Details Date Type Department Care Team Description 06/28/2018 Telephone [facility] Viri Gallardo Call Back (Patient Clinic Jesu Nicole APRN CNP call) [address] [place] [address] [facility] [address] [place] [address] [place] [phone] Social History Tobacco Use Types Packs/Day Years [...] this encounter Miscellaneous Notes Telephone Encounter - Sarah Blanchard RN - 06/29/2018 1:39 PM CDT Patient has scheduled an appointment for tomorrow with Dr. Wu. Added to appointment note to ensure patient has an appointment with Psychiatry. Robyn Blanchard RN Telephone Encounter - Sarah Blanchard RN - 06/28/2018 2:14 PM CDT LM that patient will need to schedule an office appointment in the next 1-2 days. Asked patient to call me back. Robyn Blanchard RN Telephone Encounter - Viri Gallardo APRN CNP - 06/28/2018 12:04 PM CDT She has bipolar disorder and this sounds like patt. I'm not comfortable treating over the phone. She needs to 1) schedule with psych as I recommended weeks ago 2) In the mean time needs OV today or tomorrow. Ok to use my same days but cannot squeeze her in. She can see a different provider. Telephone Encounter - Sarah Blanchard RN - 06/28/2018 11:17 AM CDT Patient has been unable to fall asleep for 4 hrs after lying down. Goes to bed at 11 pm and is up until 0200. Thinks this is from the Hydroxyzine. States that anxiety medications give her insomnia. The Atatrax works well for anxiety but feels this is causing insomnia. Has tried smoking weed and this doesn't help her fall asleep. Has tried multiple medications in the past to treat anxiety-has tried Citalopram, Fluoxetine, Paxil,Risperdal, Sertraline, Xanax and Klonopin. These medications were either ineffective or caused side effects. Has tried Melatonin and this doesn't help her sleep either. Any other recommendations? Robyn Blanchard RN Telephone Encounter - Carleen Valles - 06/28/2018 10:01 AM CDT Reason for call: Other Patient called regarding (reason for call): call back Additional comments: Patient cannot sleep and is wondering if its the medication. Please call her back. Phone number to reach patient: Home number on file [phone] (home) Best Time: shazia Can we leave a detailed message on this number? unknown documented in this encounter Plan of Treatment Not on filedocumented as of this encounter Visit Diagnoses Not on filedocumented in this encounter Additional Health Concerns Assessment Noted Time PHQ-9 Depression Total Score: 15 04/08/2018 7:11 AM CD T documented as of this encounter Care Teams Airport Security Screener Relationship Specialty Start Date End Date Viri Gallardo, PCP - General Nurse Practitioner 06/29/17 04/14/20 CLINIC MD ASSOCIATE[address] [place] [id number] Viri Gallardo, PCP - Assigned PCP 09/12/17 12/13/18 [facility] OUTBOARD MOTOR INSPECTOR [address] [facility] [place] [address] Viri Gallardo, Assigned PCP 09/12/1709/16 [facility] [address] [facility] [place] [address] documented as of this encounter
--- OUTSIDE RECORDS SUMMARY | 2022-09-05 18:56 | XMS_ITS | Encounter Summary ---
:1995 Author Organization [place] Address [address] [place] [address] Care Team Providers Name Role Phone Viri Gallardo APRN, CNP Primary Care Provider [phone] Viri Gallardo APRN, CNP Unavailable [phone] Viri Gallardo APRN, CNP Unavailable [phone] Reason for Visit Reason Onset Date Comments Medication Request 05/18/2018 HYDROcodone-acetamin ophen (NORCO) 5-325 MG per tablet Encounter Details Date Type Department Care Team Description 05/18/2018 Telephone [facility] Viri Gallardo Medication Request Clinic Jesu Nicole APRN CNP (HYDROcodone-acetaminop [address] [place] [address] [facility] hen ( NORCO) 5-325 MG [facility] DR per tablet) [address] [place] [address] [place] [address] [phone] Social History Tobacco Use Types Packs/Day Years [...] this encounter Miscellaneous Notes Telephone Encounter - Magali Han RN - 05/19/2018 10:23 AM CDT Notified patient of below. She states she has an appointment on Wednesday to discuss. Magali Han RN Telephone Encounter - Sarah Blanchard RN - 05/19/2018 10:11 AM CDT LMTCNorm Blanchard RN Telephone Encounter - Viri Gallardo APRN CNP - 05/18/2018 5:08 PM CDT Willard is not appropriate and I won't continue the medication under any circumstances given normal imaging, etc. However, if she would like an appointment we can certainly do that as long as she's aware that this is not a possibility. Telephone Encounter - Sarah Blanchard RN - 05/18/2018 2:16 PM CDT Viri-Can we use one of your same days for follow-up of ER visit and request for Willard? Willard 5-325 mg Last Written Prescription Date: 05/13/18 Last Fill Quantity: 12, # refills: 0 Last Office Visit: 05/13/18 Future Office visit: Routing refill request to provider for review/approval because: Drug not on the FMG, UMP or Health refill protocol or controlled substance RX monitoring program ([place]MP) reviewed: DATA INTEGRITY SPECIALIST reviewed- no concerns [place] profile: [email or web address]-[email or web address]/ Per AVS-Continue ibuprofen 600 mg every 6 hours or 800 mg every 8 hours as needed for pain. For severe pain, you can take Willard. If you are having more spasm/cramping pain, Flexeril may be helpful. Caution use with Flexeril and Willard as it will make you drowsy. Use a heating pack and continue Lidoderm patches. Follow-up closely with primary care provider to ensure you are improving as expected. Recommended follow-up in 3 days Return with severe pain, fever greater than 101??F, or any other concerns. No evidence of pneumonia. Use incentive spirometer as instructed. Robyn Blanchard RN Telephone Encounter - Lulu Slaughter - 05/18/2018 1:24 PM CDT The pt is having pain in her ribs and she would like a refill of her HYDROcodone-acetaminophen (NORCO) 5-325 MG per tablet. The pt will crop picker the rx at the clinic desk interviewer. She would like a call when it's ready and it's ok to leave a message. Lulu Slaughter on 05/18/2018 at 1:28 PM documented in this encounter Plan of Treatment Not on filedocumented as of this encounter Visit Diagnoses Not on filedocumented in this encounter Additional Health Concerns Assessment Noted Time PHQ-9 Depression Total Score: 15 04/08/2018 7:11 AM CD T documented as of this encounter Care Teams Inside Barrel Lathe Operator Relationship Specialty Start Date End Date Viri Gallardo, PCP - General Nurse Practitioner 06/29/17 04/14/[address] [place] [address] Viri Gallardo, PCP - Assigned PCP 09/12/17 12/13/[address] [place] [address] Viri Gallardo, Assigned PCP 09/12/1709/[address] [place] [address] documented as of this encounter
--- OUTSIDE RECORDS SUMMARY | 2022-09-05 18:56 | XMS_ITS | Encounter Summary ---
:1995 Author Organization [facility] Address [address] [place] [address] Care Team Providers Name Role Phone Viri Gallardo APRN, CNP Primary Care Provider [phone] Viri Gallardo APRN, CNP Unavailable [phone] Viri Gallardo APRN, CNP Unavailable [phone] Reason for Referral Mental Health Outpatient - Closed Specialty Diagnoses / Procedures Referred By Contact Refer red To Contact Diagnoses Moderate bipolar II disorder, most recent episode major depressive (H) Viri Gallardo APRN CNP [address] [facility] [place] [address] Referral ID Status Reason Start Date Expiration Date Visits Requ ested Visits Authorized [id number] Closed 05/12/2018 05/12/2019 1 1 Reason for Visit Reason Comments Recheck Medication Encounter Details Date Type Department Care Team Description [facility]/12[facility] Moderate b ipolar II disorder, most recent episode major depressive (H) (Primary Dx); Clinic Jesu Nicole APRN Cough [address] [facility] [address] [place] [address] [place] [address] [phone] Social History Tobacco Use Types Packs/Day Years [...] Sign Reading Time Taken Comments Blood Pressure 106/62 05/12/2018 9:59 AM CDT Pulse 73 05/12/2018 9:59 AM CDT Temperature 36.6 ??C (97.9 ??F) 05/12/2018 9:59 AM CDT Respiratory Rate - - Oxygen Saturation 99% 05/12/2018 9:59 AM CDT Inhaled Oxygen Concentration - - Weight 52.7 kg (116 lb 1.6 oz) 05/12/2018 9:59 AM CDT Height 163.2 cm (5' 4.25) 05/12/2018 9:59 AM CDT Body Mass Index 19.77 05/12/2018 9:59 AM CDT documented in this encounter Patient Instructions Patient InstructionsMolitorViri APRN CNP - 05/12/2018 10:00 AM CDT [facility] Address: [address] [place] [address] -Start therapy -See psych for possible addition of different bipolar med (felt worse on Lamictal) -Possible dual diagnosis treatment Start Azithromycin(antibioc) Start daily inhaler twice a day See me in 2 weeks documented in this encounter Progress Notes Viri Gallardo APRN CNP - 05/12/2018 10:00 AM CDT SUBJECTIVE: Joel Amos is a 22 year old female who presents to clinic today for the following health issues: Patient declines gardasil vaccine. Medication Followup of Chantix ?? Taking Medication as prescribed: yes ?? Side Effects: None - feels her anxiety is better ?? Medication Helping Symptoms: yes Patient feels like her moods are better since starting the chantix. Is smoking once cigarette every few days. No patt or depression. Has been completely sober for 1 week but before that was using a variety of drugs. Is committed to sobriety. Cough has not improved since last visit. The cough is all day/all night. Sometimes productive. No shortness of breath, chest pain, or palpitations. No fever. No postnasal drainge. Albuterol helps only somewhat. ROS: const/heent/resp/cv/psych otherwise negative OBJECTIVE: BP 106/62 (BP Location: Right arm, Cuff Size: Adult Regular) Pulse 73 Temp 97.9 ??F (36.6 ??C) (Tympanic) Ht 5' 4.25 (1.632 m) Wt 116 lb 1.6 oz (52.7 kg) SpO2 99% BMI 19.77 kg/m2 CONSTITUTIONAL: Alert, well-nourished, well-groomed, NAD RESP: Lungs CTA. No wheeze, rhonchi, rales. CV: HRRR S1 S2 No MRG. No peripheral edema PSYCH: Bright affect. Appropriate mentation and speech. ASSESSMENT/PLAN: (F31.81) Moderate bipolar II disorder, most recent episode major depressive (H) (primary encounter diagnosis) Comment: Currently stable and sober but not on any medication. She feels the Chantix has helped stabilize her mood for some reason. Previously on Lamictal, but felt worse on this. Hasn't scheduled withpsychiatry, which was our plan at the last visit. Unfortunately she does have co-morbid polysubstance abuse, currently sober and committed to sobriety x 1 week. Plan: MENTAL HEALTH REFERRAL - Adult; Psychiatry and Medication Management; Psychiatry; Other: Not Listed - Enter Referral Details in Scheduling Comments Below; Patient call to schedule -Start therapy -See psych for possible addition of different bipolar med (felt worse on Lamictal) -Possible dual diagnosis outpatient treatment -Discussed crisis resources. (R05) Cough Comment: Patient with now about a month of cough, occasionally productive. Originally it was thoughtthat she had co-existing sinusitis and was treated with Augmentin, which did not help at all. Was then seen in UC and treated with albuterol, which has only helped somewhat. XR in UC was normal. No fever or other signs of pneumonia. No viral URI, sinus, or allergy symptoms that could be contributing. No GERD sx. Her recently quitting smoking could be contributing as sometimes people experience cough with smoking cessation. However, will treat for bronchitis and have her f/u in 1-2 weeks. Will investigate further if not improving. Plan: azithromycin (ZITHROMAX) 250 MG tablet, fluticasone (FLOVENT DISKUS) 50 MCG/BLIST AEPB -Start Azithromycin(antibioc) -Start daily inhaler twice a day (ICS) -Discussed supportive cares and reasons to return -See me in 2 weeks MAHENDRA Erickson-DNP. documented in this encounter Plan of Treatment Scheduled Referrals Name Type Priority Associated Diagnoses Order S [facility] REFERRAL - Referral Routine Moderate bipolar II Ordered: 05/12/2018 Adult; Psychiatry and disorder, most rece nt Medication Management; episode major Psychiatry; Other: Not depressive (H) Listed - Enter Referral Details in Scheduling Comments Below; Patient call to schedule documented as of this encounter Visit Diagnoses Diagnosis Moderate bipolar II disorder, most recen t episode major depressive (H) - Primary Other bipolar disorders Cough documented in this encounter Additional Health Concerns Assessment Noted Time PHQ-9 Depression Total Score: 15 04/08/2018 7:11 AM CD T documented as of this encounter Care Teams Bass Guitar Teacher Relationship Specialty Start Date End Date Viri Gallardo PCP - General Nurse Practitioner 06/29/17 04/14/20 DORIAN ELECTRO MECHANICAL ENGINEER [address] [facility] [place] [phone] Viri Gallardo, PCP - Assigned PCP 09/12/17 12/13/18 DORIAN ELECTRO MECHANICAL ENGINEER [address] [facility] [place] [address] Viri Gallardo, Assigned PCP 09/12/1709/16 SOFTWARE TEST AND VALIDATION ENGINEER ELECTRO MECHANICAL ENGINEER [address] [facility] [place] [address] documented as of this encounter
--- OUTSIDE RECORDS SUMMARY | 2022-09-05 18:56 | XMS_ITS | Encounter Summary ---
:1995 Author Organization [facility] Address [address] [place] [address] Care Team Providers Name Role Phone Viri Gallardo APRN, CNP Primary Care Provider [phone] Viri Gallardo APRN BREAKER OFF Unavailable [phone] Viri Gallardo APRN, CNP Unavailable [phone] Reason for Visit Reason Onset Date Comments Medication Request 09/15/2018 Encounter Details Date Type Department Care Team Description 09/15/[address] [facility] Viri Gallardo ication Request Jesu Nicole APRN BREAKER OFF [address] [place] [address] [facility] [address] [place] [address] [place] [phone] Social History Tobacco Use Types Packs/Day Years [...] this encounter Miscellaneous Notes Telephone Encounter - Laura Delgadillo - 09/15/2018 12:59 PM CST Spoke with the pt. She states that she has noticed her bipolar symptoms becoming more prominent, andis requesting to go back on her Wellbutrin. She has been off of this for a year. Informed pt that she needs to be seen to have this addressed. Offered pt an appt on 09/16/18 with Viri Gallardo. Pt is in agreement with plan. Laura Delgadillo, RN [employer] Telephone Encounter - Jaz Oakes - 09/15/2018 10:16 AM CST Reason for call: Other Patient called regarding (reason for call): prescription Additional comments: Patient wants to know if it is okay to restart her wellbutrin. Phone number to reach patient: Home number on file [phone] (home) Best Time: any Can we leave a detailed message on this number? YES [employer] documented in this encounter Plan of Treatment Not on filedocumented as of this encounter Visit Diagnoses Not on filedocumented in this encounter Additional Health Concerns Assessment Noted Time PHQ-9 Depression Total Score: 15 04/08/2018 7:11 AM CD T documented as of this encounter Care Teams Photographic Platemaker Relationship Specialty Start Date End Date Viri Gallardo, PCP - General Nurse Practitioner 06/29/17 04/14/20 [place] [id number] [facility] [place] [address] Viri Gallardo, PCP - Assigned PCP 09/12/17 12/13/18 J2EE DEVELOPER BREAKER OFF [address] [facility] [place] [phone] Viri Gallardo, Assigned PCP 09/12/1709/16 J2EE DEVELOPER BREAKER OFF [facility] [facility] [place] [address] documented as of this encounter
--- OUTSIDE RECORDS SUMMARY | 2022-09-05 18:56 | XMS_ITS | Encounter Summary ---
:1995 Author Organization [facility] [place] Address [address] [place] [address] Care Team Providers Name Role Phone Viri Gallardo APRN, CNP Primary Care Provider [phone] Viri Gallardo APRN, CNP Unavailable [phone] Viri Gallardo APRN, CNP Unavailable [phone] Reason for Visit Reason Comments Urgent Care Infection Pt has an infected tattoo on left thigh. Tattoo was from ten days ago. It is itchy now and she is just concerned now because she has a swollen lymph node in the left groin . Encounter Details Date Type Department Care Team Description 07/14/2018 Office Visit [facility] Lamar Barragan, Celluli tis of left lower extremity (Primary Dx); Urgent Care Jesu GREEN Extensive tattoos; [address] [place] [address] Exposure to needle, initial encounter; [address] Pain of left thigh [address] [place], [place] [phone] [phone] Social History Tobacco Use Types Packs/Day Years [...] Sign Reading Time Taken Comments Blood Pressure 104/56 07/14/2018 6:12 PM CDT Pulse 61 07/14/2018 6:12 PM CDT Temperature 37.6 ??C (99.6 ??F) 07/14/2018 6:12 PM CDT Respiratory Rate 12 07/14/2018 6:12 PM CDT Oxygen Saturation 97% 07/14/2018 6:12 PM CDT Inhaled Oxygen Concentration - - Weight 53.5 kg (118 lb) 07/14/2018 6:12 PM CDT Height - - Body Mass Index 20.9 07/07/2018 11:18 PM CDT documented in this encounter Progress Notes Lamar Barragan MD - 07/14/2018 6:10 PM CDT SUBJECTIVE: Joel Amos is a 23 year old female presenting with a chief complaint of tattoo infection of her left anterior thigh area She had an extensive tattoo done about 10 days back 3 days following which she had an extensive redness with infection and swelling in the area Was treated with iv antibiotic for 1day and then treated with keflex Pt is here as has been still noticing some redness and pain in the lower half of the tattoo along with left groin painful lymph node Onset of symptoms was 10 day(s) ago. Course of illness is waxing and waning. Severity moderate Current and Associated symptoms: pain redness in the left thigh tattoo area along with painful lymphnode in the left groin area Treatment measures tried include recently did antibiotic . Predisposing factors include tattoo done . Pt has concerns about blood borne infections Discussed about the labs that needs to be tested Past Medical History: Diagnosis Date ??? Anxiety [...] Outpatient Prescriptions Medication Sig Dispense Refill ??? acetaminophen (TYLENOL) 500 MG tablet Take 1 tablet (500 mg) by mouth every 6 hours as needed for pain 60 tablet 0 ??? albuterol (2.5 MG/3ML) 0.083% neb solution Take 1 vial (2.5 mg) by nebulization every 6 hours asneeded for shortness of breath / dyspnea or wheezing 25 vial 0 ??? albuterol (PROAIR HFA/PROVENTIL HFA/VENTOLIN HFA) 108 (90 Base) MCG/ACT Inhaler Inhale 2 puffs into the lungs every 6 hours as needed for shortness of breath / dyspnea or wheezing 1 Inhaler 0 ??? cephALEXin (KEFLEX) 500 MG capsule Take 1 capsule (500 mg) by mouth 3 times daily for 10 days 30capsule 0 ??? SUMAtriptan (IMITREX) 100 MG tablet Take 1 tablet (100 mg) by mouth at onset of headache for migraine May repeat in 2 hours. Max 2 tablets/24 hours. 18 tablet 3 ??? fluticasone (FLOVENT DISKUS) 50 MCG/BLIST AEPB Inhale 1 puff into the lungs every 12 hours 120 Inhaler 0 ??? ibuprofen (ADVIL/MOTRIN) 200 MG tablet Take 2 tablets (400 mg) by mouth every 6 hours as needed for pain 60 tablet 0 Social History Substance Use Topics ??? Smoking status: Former Smoker Packs/day: 0.25 ??? Smokeless tobacco: Never Used ??? Alcohol use 0.0 oz/week 0 Standard drinks or equivalent per week Comment: states I don't even know re how many a week ROS: 10 point ROS of systems including Constitutional, Eyes, Respiratory, Cardiovascular, Gastroenterology, Genitourinary Muscularskeletal, Psychiatric were all negative except for pertinent positives notedin my HPI OBJECTIVE: BP 104/56 Pulse 61 Temp 99.6 ??F (37.6 ??C) (Oral) Resp 12 Wt 118 lb (53.5 kg) SpO2 97% BMI 20.9 kg/m2 GENERAL APPEARANCE: healthy, alert and no [...] HSM or masses and bowel sounds normal SKIN: extensive tattoo noted in the Left anterior thigh with redness involving the lower third of the tattoo Left groin - there is a solitary enlarged about 1.5 cm tender lymph node noted in the left groin area PSYCH: mentation appears normal ASSESSMENT: Joel was seen today for urgent care and infection. Diagnoses and all orders for this visit: Cellulitis of left lower extremity - cephALEXin (KEFLEX) 500 MG capsule; Take 1 capsule (500 mg) by mouth 3 times daily for 10 days Extensive tattoos Exposure to needle, initial encounter - Hepatitis B surface antigen - Hepatitis B core antibody - Hepatitis C antibody - HIV Antigen Antibody Combo Pain of left thigh PLAN: Tylenol for the pain Pt has concerns about blood borne infections Discussed about the labs that needs to be tested Also repeat labs need to be done in 3 months Follow up if symptoms fail to improve or worsens Pt understood and agreed with plan See orders in Epic Lamar Barragan MD documented in this encounter Nursing Notes Patsy Bauer RN - 07/14/2018 6:10 PM CDT Chief Complaint Patient presents with ??? Urgent Care ??? Infection Pt has an infected tattoo on left thigh. Tattoo was from ten days ago. It is itchy now and she is just concerned now because she has a swollen lymph node in the left groin. Initial BP 104/56 Pulse 61 Temp 99.6 ??F (37.6 ??C) (Oral) Resp 12 Wt 118 lb (53.5 kg) SpO2 97% BMI 20.9 kg/m2 Estimated body mass index is 20.9 kg/(m^2) as calculated from the following: Height as of 18: 5' 3 (1.6 m). Weight as of this encounter: 118 lb (53.5 kg).. BP completed using cuff size: kemi Bauer R.N. documented in this encounter Plan of Treatment Not on filedocumented as of this encounter Procedures Procedure Name Priority Date/Time Associated Diagnosis Comme nts HIV ANTIGEN Routine 07/14/2018 6:34 PM Exposure to needle, Re sults for this ANTIBODY COMBO CDT initial encounter procedur e are in the results section. HEPATITIS C Routine 07/14/2018 6:34 PM Exposure to needle, Re sults for this ANTIBODY CDT initial encounter procedure are in the results section. HEPATITIS B SURFACE Routine 07/14/2018 6:34 PM Exposure to nee dle, Results for this ANTIGEN CDT initial encounter procedure are in the results section. HEPATITIS B CORE Routine 07/14/2018 6:34 PM Exposure to needle , Results for this ANTIBODY CDT initial encounter procedure are in the results section. documented in this encounter Results HIV Antigen Antibody Combo (07/14/2018 6:34 PM CDT) [facility] Phase III Development Method Time Signature HIV Antigen Nonreactive NR^Nonrea 07/18/2018 [facility] Antibody ctive 9:59 AM CDT [facility] Comment: HIV-1 p24 Ag & HIV-1/HIV-2 Ab N ot Detected Specimen Anatomical Collection Method Collection Time Receive d Time (Source) Location / / Volume Laterality Blood specimen 07/14/2018 6:34 PM 018 6:39 (specimen) CDT PM CDT Lamar Barragan MD LAB - BLOOD ORDERABLES Performing Organization Address City/State/ZIP Code Phon e Number [facility] [address] [place] [address] [facility] Hepatitis C antibody (07/14/2018 6:34 PM CDT) [facility] Phase III Development Method Time Signature Hepatitis C Nonreactive NR^Nonrea 07/18/2018 [facility] Antibody ctive 9:59 AM CDT [facility] Comment: Assay performance characteristics have n ot been established for newborns, infants, and children Specimen Anatomical Collection Method Collection Time Receive d Time (Source) Location / / Volume Laterality Blood specimen 07/14/2018 6:34 PM 018 6:39 (specimen) CDT PM CDT Lamar Barragan MD LAB - BLOOD ORDERABLES Performing Organization Address City/[facility]/ZIP Code Phon e Number [address] [address] [facility] Hepatitis B core antibody (07/14/2018 6:34 PM CDT) [facility] gist Method Time Signature Hepatitis B Nonreactive NR^Nonrea 07/18/2018 [facility] Judy ctive 9:59 AM CDT [facility] Specimen Anatomical Collection Method Collection Time Receive d Time (Source) Location / / Volume Laterality Blood specimen 07/14/2018 6:34 PM 018 6:39 (specimen) CDT PM CDT Lamar Barragan MD LAB - BLOOD ORDERABLES Performing Organization Address City/[facility]/ZIP Code Phon e Number [facility] [address] [place] [address] [facility] Hepatitis B surface antigen (07/14/2018 6:34 PM CDT) [facility] Method Time Signature Hep B Surface Nonreactive NR^Nonrea 07/18/2018 [facility] ctive 9:59 AM CDT [facility] Specimen Anatomical Collection Method Collection Time Receive d Time (Source) Location / / Volume Laterality Blood specimen 07/14/2018 6:34 PM 018 6:39 (specimen) CDT PM CDT Lamar Barragan MD LAB - BLOOD ORDERABLES Performing Organization Address City/[facility]/ZIP [facility] Phon e Number [address] [address] [facility] documented in this encounter Visit Diagnoses Diagnosis Cellulitis of left lower extremity - Wendy lillian Cellulitis and abscess of leg, except fo ot Extensive tattoos Other dyschromia Exposure to needle, initial encounter Pain of left thigh Pain in limb documented in this encounter Additional Health Concerns Assessment Noted Time PHQ-9 Depression Total Score: 15 04/08/2018 7:11 AM CD T documented as of this encounter Care Teams Machine Stripper Cutter Relationship Specialty Start Date End Date Viri Gallardo, PCP - General Nurse Practitioner 06/29/17 04/14/20 HOME APPLIANCE TECHNICIAN APPLIED EXERCISE PHYSIOLOGIST [address] [facility] [place] [address] Viri Gallardo, PCP - Assigned PCP 09/12/17 12/13/18 HOME APPLIANCE TECHNICIAN APPLIED EXERCISE PHYSIOLOGIST [address] [facility] [place] [address] Viri Gallardo, Assigned PCP 09/12/1709/16 HOME APPLIANCE TECHNICIAN APPLIED EXERCISE PHYSIOLOGIST [address] [facility] [place] [id number] documented as of this encounter
--- OUTSIDE RECORDS SUMMARY | 2022-09-05 18:56 | XMS_ITS | Encounter Summary ---
:1995 Author Organization [place] Address [address] [place] [address] Care Team Providers Name Role Phone Suhail Bar APRN, CNP Primary Care Provider [phone] Suhail Bar APRN, CNP Unavailable [phone] Suhail Bar APRN, CNP Unavailable [phone] Reason for Referral Mental Health Outpatient - Closed Specialty Diagnoses / Procedures Referred By Contact Refer red To Contact Diagnoses Moderate bipolar II disorder, most recent episode major depressive (H) Suhail Bar APRN CNP [address] [place] [address] [place] [address] Referral ID Status Reason Start Date Expiration Date Visits Requ ested Visits Authorized [id number] Closed 09/16/2018 09/16/2019 1 1 ULTING BUSINESS DEVELOPER Reason for Visit Reason Comments Vice President Industrial Relations Exam Depression follow up Encounter Details Date Type Department Care Team Description 09/16/2018 Office Visit [facility] Suhail Bar Papanicola ou smear of cervix with low grade squamous intraepithelial lesion (LGSIL) (Primary Dx); Clinic Jesu Nicole APRN Moderate bipolar II disorder , most recent episode major depressive (H); [address] [place] [address] Routine screening for STI (sexually hernandez smitted infection) [address] [place] [address] [place] [address] [phone] Social History Tobacco Use Types Packs/Day Years [...] Sign Reading Time Taken Comments Blood Pressure 106/64 09/16/2018 1:23 PM CONSULTING BUSINESS DEVELOPER Pulse 77 09/16/2018 1:23 PM CONSULTING BUSINESS DEVELOPER Temperature 36.7 ??C (98.1 ??F) 09/16/2018 1:23 PM CONSULTING BUSINESS DEVELOPER Respiratory Rate - - Oxygen Saturation 99% 09/16/2018 1:23 PM CONSULTING BUSINESS DEVELOPER Inhaled Oxygen Concentration - - Weight 54.7 kg (120 lb 9.6 oz) 09/16/2018 1:23 PM CONSULTING BUSINESS DEVELOPER Height 160 cm (5' 3) 09/16/2018 1:23 PM CONSULTING BUSINESS DEVELOPER Body Mass Index 21.36 09/16/2018 1:23 PM CONSULTING BUSINESS DEVELOPER documented in this encounter Progress Notes Suhail Bar, DORIAN PRODUCE LABORER - 09/16/2018 1:20 PM CST SUBJECTIVE: Joel Amos is a 23 year old female who presents to clinic today for the following health issues: Patient due for pap today. Patient consents to pap and STD testing. Depression and Anxiety Follow-Up ?? Status since last visit: Worsened ?? Other associated symptoms:None ?? Complicating factors: ?? Significant life event: No ?? Current substance abuse: Occasional part of a suboxone her boyfriend takes. Marijuana daily PHQ 06/29/2017 04/07/2018 09/16/2018 PHQ-9 Total Score 13 15 15 Q9: Suicide Ideation Not at all Not at all Several days FAITH-7 SCORE 03/02/2017 04/07/2018 09/16/2018 Total Score 19 18 21 In the past two weeks have you had thoughts of suicide or self-harm? Khadijah, passive Do you have concerns about your personal safety or the safety of others? No PHQ-9 Syriac PHQ-9 Any Language FAITH-7 Suicide Assessment Five-step Evaluation and Treatment (SAFE-T) ROS: const/psych/slide developer otherwise negative OBJECTIVE: BP 106/64 (BP Location: Right arm, Cuff Size: Adult Regular) Pulse 77 Temp 98.1 ??F (36.7 ??C) (Tympanic) Ht 5' 3 (1.6 m) Wt 120 lb 9.6 oz (54.7 kg) LMP 08/28/2018 (Exact Date) SpO2 99% BMI 21.36 kg/m2 CONSTITUTIONAL: Alert, well-nourished, well-groomed, NAD RESP: Lungs CTA. No wheeze, rhonchi, rales. CV: HRRR S1 S2 No MRG. No peripheral edema (female): normal female external genitalia, vaginal mucosa pink, moist, well rugated and normal cervix, adnexae, and uterus without masses. Normal vaginal discharge PSYCH: Bright affect. Appropriate mentation and speech. ASSESSMENT/PLAN: (R82.152) Papanicolaou smear of cervix with low grade squamous intraepithelial lesion (LGSIL) (primary encounter diagnosis) Comment: LSIL last year. Plan: Pap imaged thin layer screen only - recommended age 21 - 24 years (F31.81) Moderate bipolar II disorder, most recent episode major depressive (H) Comment: Poorly controlled. Patient feels she is entering a depressed period. Has daily passive suicidal thoughts, but no intent to harm or actual plans. Not thinking of harming others. States she knows she needs help, which she knows includes likely permanently being on bipolar meds. Plan: MENTAL HEALTH REFERRAL - Adult; Psychiatry and Medication Management; Psychiatry; Other: Behavioral Healthcare Providers ; We will contact you to schedule the appointment or please call with any questions -She agrees to call [facility] today to get set up with med management -Crisis resources provided. Contracted for safety and discussed safety action plan. (Z11.3) Routine screening for STI (sexually transmitted infection) Plan: NEISSERIA GONORRHOEA PCR, CHLAMYDIA TRACHOMATIS PCR MAHENDRA Erickson-GENE. ULTING BUSINESS DEVELOPER documented in this encounter Plan of Treatment Scheduled Referrals Name Type Priority Associated Diagnoses Order S lainey MENTAL [facility] REFERRAL - Referral Routine Moderate bipolar II Ordered: 09/16/2018 Adult; Psychiatry and disorder, most rece nt Medication Management; episode major Psychiatry; Other: depressive (H) Behavioral Healthcare Providers ; We will contact you to schedule the appointment or please call with any questions documented as of this encounter Procedures Procedure Name Priority Date/Time Associated Diagnosis Comme nts NEISSERIA Routine 09/16/2018 1:45 Routine screening for Res ults for this GONORRHOEAE PCR PM CONSULTING BUSINESS DEVELOPER STI (sexually procedure a re in transmitted infection) the r esults section. CHLAMYDIA Routine 09/16/2018 1:45 Routine screening for Res ults for this TRACHOMATIS PCR PM CONSULTING BUSINESS DEVELOPER STI (sexually procedure a re in transmitted infection) the r esults section. PAP IMAGED THIN Routine 09/16/2018 1:44 Papanicolaou smear of Results for this LAYER SCREEN PM CONSULTING BUSINESS DEVELOPER cervix with low grade proced ure are in squamous the results intraepithelial lesion secti on. (LGSIL) documented in this encounter Results CHLAMYDIA TRACHOMATIS PCR (09/16/2018 1:45 PM CONSULTING BUSINESS DEVELOPER) [facility] Method Time Signature Specimen Cervix 09/16/2018 [place] Description 3:41 PM CONSULTING BUSINESS DEVELOPER [facility] Chlamydia Negative NEG^Negat 09/18/2018 [facility] Trachomatis PCR herrera 2:25 PM CONSULTING BUSINESS DEVELOPER [facility] Comment: Negative for C. trachomatis rRNA by hernandze scription mediated amplification. A negative result by kinesiologist media lainey amplification does not preclude the presence of C. trachomatis infection because results are dependent on proper and adequate collection, absence of inhibitors, and sufficient rRNA to be detected. Specimen Anatomical Collection Method Collection Time Receive d Time (Source) Location / / Volume Laterality Cervical swab 09/16/2018 1:45 PM 09/16/20 18 3:41 (specimen) CONSULTING BUSINESS DEVELOPER PM CONSULTING BUSINESS DEVELOPER Suhail Bar APRN PRODUCE LABORER LAB - MICRO GENERAL ORD ERABLES Performing Organization Address City/State/ZIP Code Phon e Number [address] [address] [facility] [place] [address] [place] [address] NEISSERIA GONORRHOEA PCR (09/16/2018 1:45 PM CONSULTING BUSINESS DEVELOPER) Analysis Performed At Patho logist Time Signature Specimen Cervix 09/16/2018 [place] Descrip 3:41 PM CONSULTING BUSINESS DEVELOPER [facility] N Gonorrhea Negative NEG^Negati 09/18/2018 [facility] ve 2:25 PM CONSULTING BUSINESS DEVELOPER [facility] Comment: Negative for N. gonorrhoeae rRNA by hernandez scription mediated amplification. A negative result by kinesiologist media lainey amplification does not preclude the presence of N. gonorrhoeae infection because results are dependent on proper and adequate collection, absence of inhibitors, and sufficient rRNA to be detected. Specimen Anatomical Collection Method Collection Time Receive d Time (Source) Location / / Volume Laterality Cervical swab 09/16/2018 1:45 PM 09/16/20 18 3:41 (specimen) CONSULTING BUSINESS DEVELOPER PM CONSULTING BUSINESS DEVELOPER Suhail Bar MRP CONTROLLER PRODUCE LABORER LAB - MICRO GENERAL ORD ERABLES Performing Organization Address City/State/ZIP Code Phon e Number [address] [address] Pap imaged thin layer screen only - recommended age 21 - 24 years (09/16/2018 1:44 PM CONSULTING BUSINESS DEVELOPER) Component Value Ref Test Analysis Performed At [facility] Range Method Time Signature PAP NIL COPATH Copath Report COPATH Patient Name: JOEL AMOS MR#: [id number] Specimen #: [id number] Collected: 09/16/2018 Received: 09/19/2018 Reported: 09/20/2018 14:55 Ordering Phy(s): SUHAIL BAR For improved result formatting, select 'View Enhanced Report Format' under Linked Documents section. SPECIMEN/STAIN PROCESS: Pap imaged thin layer prep screening (Surepath, FocalPoint w ith guided screening) ? Pap-Cyto x 1 SOURCE: Cervical, endocervical ---- Pap imaged thin layer prep screening (Surepath, FocalPoint with guided screening) SPECIMEN ADEQUACY: Satisfactory for evaluation. -Transformation zone component absent. CYTOLOGIC INTERPRETATION: Negative for intraepithelial lesion or malignancy Electronically signed out by: Ken Cole, CT (ASCP) Processed and screened at [facility] CLINICAL HISTORY: LMP: 08/28/2018 Previous LGSIL Date of Last Pap: 08/26/2017, History of positive HPV: last year, Papanicolaou Test Limitations: ??Cervical cytology is a sc reening test with limited sensitivity; regular screening is critical for cancer prevention; Pap tests are p rimarily effective for the diagnosis/prevention of squamous cell carcinoma, not adenocarcinomas or other cancer s. TESTING LAB LOCATION: [facility] [address] [place], [place] ??[address] COLLECTION SITE: Client: ??[facility] Location: [facility] (R) Specimen (Source) Anatomical Collection Method Collection Time Re ceived Time Location / / Volume Laterality Cytologic 09/16/2018 1:44 09/19/2018 material PM CONSULTING BUSINESS DEVELOPER 11:23 AM CONSULTING BUSINESS DEVELOPER (specimen) Suhail Bar MRP CONTROLLER PRODUCE LABORER LAB - [facility] [place] Performing Organization Address City/State/ZIP Code Phon e Number [place] documented in this encounter Visit Diagnoses Diagnosis Papanicolaou smear of cervix with low gr robert squamous intraepithelial lesion (LGSIL) - Primary Moderate bipolar II disorder, most recen t episode major depressive (H) Other bipolar disorders Routine screening for STI (sexually hernandez smitted infection) Screening examination for venereal disea se documented in this encounter Additional Health Concerns Assessment Noted Time PHQ-9 Depression Total Score: 15 09/16/2018 1:27 PM CS T documented as of this encounter Care Teams Hose Cementer Relationship Specialty Start Date End Date Suhail Bar, PCP - General Nurse Practitioner 06/29/17 04/14/20 MRP CONTROLLER PRODUCE LABORER [address] [facility] [place] [id number] Suhail Bar, PCP - Assigned PCP 09/12/17 12/13/18 MRP CONTROLLER PRODUCE LABORER [address] [facility] [place] [address] Suhail Bar, Assigned PCP 09/12/1709/16 MRP CONTROLLER PRODUCE LABORER [address] [facility] [place] [address] documented as of this encounter
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
--- OUTSIDE RECORDS SUMMARY | 2022-09-05 18:56 | XMS_ITS | Encounter Summary ---
:1995 Author Organization [facility] Address [address] [place] [address] Care Team Providers Name Role Phone Viri Gallardo APRN, CNP Primary Care Provider [phone] Viri Gallardo APRN SPRAY MACHINE OPERATOR Unavailable [phone] Viri Gallardo APRN SPRAY MACHINE OPERATOR Unavailable [phone] Reason for Visit Reason Comments Rib Pain Encounter Details Date Type Department Care Team Description 05/13/2018 Emergency [facility] Jessi Iqbal MD Rib contusion, right, [facility] initial encounter [address] [place], [place] [address] [facility] [id number] [place] [address] (Wo rk) Social History Tobacco Use Types [...] Sign Reading Time Taken Comments Blood Pressure 104/93 05/13/2018 12:30 PM CDT Pulse - - Temperature 36.9 ??C (98.5 ??F) 05/13/2018 10:25 AM CDT Respiratory Rate 18 05/13/2018 10:13 AM CDT Oxygen Saturation 99% 05/13/2018 12:30 PM CDT Inhaled Oxygen Concentration - - Weight 52.6 kg (116 lb) 05/13/2018 10:13 AM CDT Height 160 cm (5' 3) 05/13/2018 10:13 AM CDT Body Mass Index 20.55 05/13/2018 10:13 AM CDT documented in this encounter Discharge Instructions Discharge InstructionsJessi Iqbal MD - 05/13/2018 12:36 PM CDT Continue ibuprofen 600 mg every 6 hours or 800 mg every 8 hours as needed for pain. For severe pain, you can take [employer]. If you are having more spasm/cramping pain, Flexeril may be helpful. Caution use with Flexeril and [employer] as it will make you drowsy. Use a heating pack and continue Lidoderm patches. Follow-up closely with primary care provider to ensure you are improving as expected. Return with severe pain, fever greater than 101??F, or any other concerns. No evidence of pneumonia. Use incentive spirometer as instructed. AttachmentsThe following attachments cannot be sent through Care Everywhere.RIB CONTUSION (ISRAELI)documented in this encounter Medications at Time of Discharge Medication Sig Dispensed Refills Start Date End Date HYDROcodone-acetaminoph Take 1 tablet by 12 tablet 0 201705/16/2018 en (NORCO) 5-325 MG per mouth every 6 hours tablet as needed for pain lidocaine (LIDODERM) 5 Place 1 patch onto 10 patch 0 05/1305/23/2018 % Patch the skin every 24 hours for 10 days albuterol (2.5 MG/3ML) Take 1 vial (2.5 [...] breath InhalerIndications: / dyspnea or Cough wheezing azithromycin Two tablets first 6 tablet 0 05/12/201806/30 (ZITHROMAX) 250 MG day, then one tablet tabletIndications: daily for four days. Cough benzonatate (TESSALON) Take 1 capsule (100 42 capsule 0 02/201806/30/2018 100 MG mg) by mouth 3 times capsuleIndications: daily as needed for Acute sinusitis with cough symptoms > 10 days cyclobenzaprine Take 1 tablet (10 14 [...] itching episode major depressive (H) ibuprofen Take 1 tablet (600 30 tablet 1 05/10/20182017 (ADVIL/MOTRIN) 600 MG mg) by mouth every 6 tabletIndications: Rib hours as needed for pain on right side moderate pain SUMAtriptan (IMITREX) Take 1 tablet (100 [...] 53 tablet 0 04/07/2018 07/14/2018 STARTING MONTH ) 0.5 daily for 3 days, MG X [...] documented as of this encounter ED Notes Monika Slaughter RN - 05/13/2018 10:31 AM CDT Labs drawn with IV insertion and held Monika Slaughter RN - 05/13/2018 10:14 AM CDT Wednesday woke with really bad pain in my rib cage; 3 days later daughter jumped on it and that madeit worse still. Seen at urgent care on Wednesday, two days ago, placed on ibuprofen and muscle relaxant. Helped first night, now getting worse. States is a bump there. This morning when I woke up there is more pain that there was before. States hard to lift arm, pain increases with deep breaths. Xray taken showing no fracture was told it was a swollen muscle. Rating pain 10/10 at this time. Also [facility] scripts for zithromax and flovent but has not picked it up from pharmacy. ABCD's intact; A/O x 4. Jessi Iqbal MD - 05/13/2018 10:04 AM CDT History Chief Complaint: Rib Pain The history is provided by the patient. Joel Amos is a 22 year old female who presents with rib pain. Patient reports waking up 5 days ago with right rib pain. She denies any recalled injuries to have caused the pain, but she went to a [place] the night before the pain began where she drank alcohol and states she may have fallen and hit her rib. 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 She notes her children jump on her, citing all these as possible causes as well as exacerbating factors for her ongoing pain. She was seen at Urgent Care 3 days ago, where a rib x-ray was obtained (results below), which was negative for fractures. She was discharged with 600 mg ibuprofen and Flexeril, which helped her pain the first night, but she has sincehad worsening pain the last 2 nights. Patient saw her primary care physician yesterday, who recommended continued use of Flexeril and ibuprofen. She was also prescribed Flovent and azithromycin for a cough that patient has had for 1 month. She has not started the medications yet. She describes the cough as hoarse and would occasionally bring up some phlegm. She states she quit smoking 1 month ago after she started Chantix. This morning she states she woke up in tears from pain. She also noticed a bump at the right rib which has gone down. Patient states pain is severe and radiates somewhat adam und posteriorly. She notes pain is exacerbated by deep inspiration and states she also feels short of breath like I can't get my lungs to open up as much as I want to. Denies sore throat, fever, rhinorrhea. PE/DVT RISK FACTORS: Sex: Female Hormones: No Tobacco: Yes, states quit 1 month ago Cancer: No Travel: No Surgery: No Other immobilization: No Personal history: No Family history: No RIBS AND CHEST RIGHT THREE VIEWS (Urgent Care 05/10/2018 4:03 PM) Lungs are well-inflated and clear. Heart size is normal. No displaced rib fractures are identified. ?? Allergies: No known drug allergies Medications: Albuterol Imitrex Chantix Flovent, azithromycin - has not picked up yet Ibuprofen Flexeril Past Medical History: Anxiety Bipolar 1 disorder Depression Marijuana dependence Migraines Depression Past Surgical History: History reviewed. No pertinent surgical history. 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 HENT: Negative for rhinorrhea and sore throat. Respiratory: Positive for cough. Negative for shortness of breath. Musculoskeletal: Rib pain Skin: Negative for color change. All other systems reviewed and are negative. Physical Exam Patient Vitals for the past 24 hrs: BP Temp Temp src Heart Rate Resp SpO2 Height Weight 05/13/18 1230 (!) 104/93 - - - - 99 % - - 05/13/18 1225 117/73 - - - - - - - 05/13/18 1100 122/78 - - - - 100 % - - 05/13/18 1025 - 98.5 ??F (36.9 ??C) Oral - - - - - 05/13/18 1013 129/81 - - 62 18 100 % 1.6 m (5' 3) 52.6 kg (116 lb) Physical Exam General: Well-developed and well-nourished. Well appearing young woman. Cooperative. Head: Atraumatic. Eyes: Conjunctivae, lids, and sclerae are normal. ENT: Normal nose. Moist mucous membranes. Neck: Supple. Normal range of motion. CV: Regular rate and rhythm. Normal heart sounds with no murmurs, rubs, or gallops detected. Resp: No respiratory distress. Clear to auscultation bilaterally without decreased breath sounds, wheezing, rales, or rhonchi. GI: Soft. Non-distended. Non-tender. MS: Normal ROM. No bilateral lower extremity edema. Tenderness to palpation along the anterolateral right mid chest wall without step-offs or deformities. No skin changes/ecchymosis. Skin: Warm. Non-diaphoretic. No pallor. Neuro: Awake. A&Ox3. Normal strength. Psych: Normal mood and affect. Normal speech. Vitals reviewed. Emergency Department Course Imaging: Radiographic findings were communicated with the patient who voiced understanding of the findings. CT Chest Pulmonary Embolism w Contrast No acute pulmonary embolus, pleural effusion or acute pulmonary disease. As read by Radiology. Laboratory: CBC: WNL (WBC 7.6, HGB 14.5, PLT 264) BMP: WNL (Creatinine 0.64) ISTAT HCG: <5.0 Interventions: 1053: [employer] 1 tablet oral 1054: NS 1L IV Bolus LidoDerm patch Emergency Department Course: Past medical records, nursing notes, and vitals reviewed. 1016: I performed an exam of the patient and obtained history, as documented above. 1208: I rechecked the patient, explained the findings, and discussed the plan with the patient. IV inserted and blood drawn for basic laboratory. Results as noted above. The patient was sent for a CT chest pulmonary embolism while in the emergency department, findings above. I rechecked the patient she was feeling better but notes pain worsened when she had to raise her arms for CT. Patient discharged home with instructions regarding supportive care, medications, and reasons to return. The importance of close follow-up was reviewed. Impression & Plan Medical Decision Making: Joel is a 22-year-old female who presents with right-sided rib pain. She states she believes this was without trauma but notes it started the day after she was drinking so she could have possibly fallen. She states the pain has since been worsened because her kids use me like a jungle gym. She hashad no improvement despite use of Motrin and Flexeril she was given when she visited Urgent Care andhad a negative X-ray 2 days ago. She was also seen by her primary care provider where she makes no mention of her chest pain in the note but reported cough for months and was prescribed azithromycin and Flovent for bronchitis which she has not yet picked up. Patient presents today because her pain is severe. She notes it is exacerbated by deep inspiration. She has focal tenderness and otherwise her exam is unremarkable. Although I suspect this is simply a rib contusion or musculoskeletal pain, without a particular trauma and no improvement in days with use of Motrin and Flexeril, particularly with a ssociated cough, and it's pleuritic nature, I did obtain a CT angiogram of the chest to rule out pulmonary embolus, occult pneumonia, occult fracture, small pleural effusion, or any other acute pathologies that may be attributing to her symptoms. Fortunately, none of these are present so patient's pain is most likely secondary to rib contusion or other musculoskeletal etiology. Basic labs are unremarkable including normal electrolytes, creatinine 0.64, and no leukocytosis. Patient was given [employer] with some improvement and Lidoderm patch was placed. She was given incentive spirometer and instructed on its use. At this time, patient has no evidence of an infectious etiology but she can take azithromycin as her primary care provider prescribed if she so chooses. Suspect cough is related to her recent smoking cessation. I discussed pain control with continuous ibuprofen as well as [employer] for more severe pain. I talked her about the use of Flexeril which may help if it is more cramping or spasm pain but otherwise patient can use [employer] alone. I discussed the use of heating pack as well as continued Lidoderm patches and the importance of following up with primary care provider. Return precautions were provided and I answered all the patient's questions. She verbalized understanding and is amenable to discharge. Diagnosis: ICD-10-CM 1. Rib contusion, right, initial encounter S20.211A Disposition: discharged home Discharge Medications: Details HYDROcodone-acetaminophen (NORCO) 5-325 MG per tablet Take 1 tablet by mouth every 6 hours as neededfor pain, Disp-12 tablet, R-0, Local Print lidocaine (LIDODERM) 5 % Patch Place 1 patch onto the skin every 24 hours for 10 daysDisp-10 patch, R-0Local Print Anita 05/13/2018 [facility] EMERGENCY DEPARTMENT I, Anita Goldsmith, am serving as a scribe at 10:16 AM on 05/13/2018 to document services personally performedby Jessi Iqbal MD based on my observations and the provider's statements to me. Jessi Iqbal MD 05/14/18 0831 documented in this encounter Plan of Treatment Not on filedocumented as of this encounter Procedures Procedure Name Priority Date/Time Associated Comments Diagnosis CT CHEST PULMONARY STAT 05/13/2018 11:36 Resul ts for this EMBOLISM W CONTRAST AM CDT procedur e are in the results section. ISTAT HCG Routine 05/13/2018 10:49 Results for this QUANTITATIVE AM CDT procedure are i n POCT the results section. CBC WITH PLATELETS & STAT 05/13/2018 10:31 Res ults for this DIFFERENTIAL AM CDT procedure are i n the results section. BASIC METABOLIC PANEL STAT 05/13/2018 10:31 Re sults for this AM CDT procedure are i n the results section. documented in this encounter Results CT Chest Pulmonary Embolism w Contrast (05/13/2018 11:36 AM CDT) Anatomical Region Laterality Modality Chest, SUBRAD CT BODY, UMP CT CHEST Comp uted Tomography Specimen (Source) Anatomical Location Collection Method / Collectio n Time Received Time / Laterality Volume Impressions 05/13/2018 11:49 AM CDT IMPRESSION: 1. No acute pulmonary embolus, pleural e ffusion or acute pulmonary disease. MICHELLE PATTERSON MD Narrative 05/13/2018 11:[address] CHEST PULMONARY EMBOLISM W CONTRAST05/13/2018 11:36 AM HISTORY: Dyspnea; TECHNIQUE: Axial images from thoracic in let to diaphragm. 60mL Isovue-370 Radiation dose for this scan was reduced using automated exposure control, adjustment of the mA a nd/or kV according to patient size, or iterative reconstruction techni que. COMPARISON: 05/10/2018 chest and right ri b x-ray FINDINGS: CHEST: No evidence for acute pulmonary e mbolus or thoracic aortic dissection. No mediastinal, hilar or axi llary adenopathy. The lungs are clear. No pleural effusion. No aggre ssive bone lesions. Procedure Note Michelle Patterson MD - 05/13/2018For matting of this note might be different from the original. CT CHEST PULMONARY EMBOLISM W CONTRAST05/13/2018 11:36 AM HISTORY: Dyspnea; TECHNIQUE: Axial images from thoracic in let to diaphragm. 60mL Isovue-370 Radiation dose for this scan was reduced using automated exposure control, adjustment of the mA a nd/or kV according to patient size, or iterative reconstruction techni que. COMPARISON: 05/10/2018 chest and right ri b x-ray FINDINGS: CHEST: No evidence for acute pulmonary e mbolus or thoracic aortic dissection. No mediastinal, hilar or axi llary adenopathy. The lungs are clear. No pleural effusion. No aggre ssive bone lesions. IMPRESSION: 1. No acute pulmonary embolus, pleural e ffusion or acute pulmonary disease. MICHELLE PATTERSON MD Jessi Iqbal MD IMG CT ORDERABLES ISTAT HCG Quantitative POCT (05/13/2018 10:49 AM CDT) P athologist Signature HCG Quantitative <5.0 <5.0 IU/L 05/13/2018 POINT OF CAR E Serum 11:00 AM CDT TEST, HANDHELD METER Specimen Anatomical Collection Method Collection Time Receive d Time (Source) Location / / Volume Laterality 05/13/2018 10:49 05/13/2018 AM CDT 11:00 AM CDT Jessi Iqbal MD LAB - BEAKER POCT Performing Organization Address City/State/ZIP Code Phon e Number [facility] POINT OF CARE TEST, HANDHELD METER POINT OF CARE TEST, HANDHELD METER (ABNORMAL) CBC with platelets differential (05/13/2018 10:31 AM [facility]) [facility] gist Method Time Signature WBC 7.6 4.0 - 05/13/2018 [facility] 11.0 11:03 AM [facility] 10e9/L [facility] RBC Count 4.33 3.8 - 5.2 05/13/2018 [facility] 10e12/L 11:03 [facility] Hemoglobin 14.5 11.7 - 05/13/2018 [facility] 15.7 g/dL 11:03 AM [facility] Hematocrit 41.9 35.0 - 05/13/2018 [facility] 47.0 % 11:03 [facility] MCV 97 78 - 100 05/13/2018 [facility] fl 11:03 [facility] MCH 33.5 (H) 26.5 - 05/13/2018 [facility] 33.0 pg 11:03 [facility] MCHC 34.6 31.5 - 05/13/2018 [facility] 36.5 g/dL 11:03 AM [facility] RDW 12.0 10.0 - 05/13/2018 [facility] 15.0 % 11:03 [facility] Platelet Count 264 150 - 450 05/13/2018 [facility] 10e9/L 11:03 AM [facility] Diff Method Automated 05/13/2018 [facility] Method 11:03 [facility] % Neutrophils 51.3 % 05/13/2018 [facility] 11:03 [facility] % Lymphocytes 35.2 % 05/13/2018 [facility] 11:03 [facility] % Monocytes 9.8 % 05/13/2018 [facility] 11:03 AM [facility] % Eosinophils 2.5 % 05/13/2018 [facility] 11:03 [facility] % Basophils 0.9 % 05/13/2018 [facility] 11:03 AM [facility] % Immature 0.3 % 05/13/2018 [facility] Granulocytes 11:03 [facility] Nucleated RBCs 0 0 /100 05/13/2018 [facility] 11:03 AM [facility] Absolute 3.9 1.6 - 8.3 05/13/2018 [facility] Neutrophil 10e9/L 11:03 AM [facility] Absolute 2.7 0.8 - 5.3 05/13/2018 [facility] Lymphocytes 10e9/L 11:03 AM [facility] Absolute 0.7 0.0 - 1.3 05/13/2018 [place] Monocytes 10e9/L 11:03 AM [facility] Absolute 0.2 0.0 - 0.7 05/13/2018 [place] Eosinophils 10e9/L 11:03 AM [facility] Absolute 0.1 0.0 - 0.2 05/13/2018 [place] Basophils 10e9/L 11:03 AM [facility] Abs Immature 0.0 0 - 0.4 05/13/2018 [place] Granulocytes 10e9/L 11:03 AM [facility] Absolute 0.0 05/13/2018 [place] Nucleated RBC 11:03 AM [facility] Specimen Anatomical Collection Method Collection Time Receive d Time (Source) Location / / Volume Laterality Blood specimen 05/13/2018 10:31 8 (specimen) AM CDT 10:59 AM CDT Jessi Iqbal MD LAB - BLOOD ORDERABLES Performing Organization Address City/State/ZIP Code Phon e Number [place] [address] [address] [facility] [address] [phone] Basic metabolic panel (05/13/2018 10:31 AM CDT) athologist Signature Sodium 139 133 - 144 05/13/2018 [place] mmol/L 11:17 AM [facility] Potassium 3.9 3.4 - 5.3 05/13/2018 [place] mmol/L 11:17 AM [facility] Chloride 106 94 - 109 05/13/2018 [place] mmol/L 11:17 AM [facility] Carbon Dioxide 27 20 - 32 05/13/2018 [place] mmol/L 11:17 AM [facility] Anion Gap 6 3 - 14 05/13/2018 [place] mmol/L 11:17 AM [facility] Glucose 96 70 - 99 05/13/2018 [place] mg/dL 11:17 AM [facility] Urea Nitrogen 13 7 - 30 05/13/2018 [place] mg/dL 11:17 AM [facility] Creatinine 0.64 0.52 - 05/13/2018 [place] 1.04 mg/dL 11:17 AM [facility] GFR Estimate >90 >60 05/13/2018 [place] mL/min/1.7 11:[address] Comment: Non GFR Calc GFR Estimate If >90 >60 mL/min/1.7m2 05/13/2018 11:17 AM [facility] Comment: GFR Calc Calcium 8.8 8.5 - 10.1 mg/dL 05/13/2018 11:17 AM [facility] Specimen Anatomical Collection Method Collection Time Receive d Time (Source) Location / / Volume Laterality Blood specimen 05/13/2018 10:31 8 (specimen) AM CDT 10:59 AM CDT Jessi Iqbal MD LAB - BLOOD ORDERABLES Performing Organization Address City/State/ZIP Code Phon e Number [place] [address] [phone] documented in this encounter Visit Diagnoses Diagnosis Rib contusion, right, initial encounter documented in this encounter Administered Medications Inactive Administered Medications - up to 3 most recent administrations Medication Order MAR Action Action Date Dose Rate Site 0.9% sodium chloride BOLUS New Bag 05/13/2018 10:54 AM 1,000 mLs 1000 mL/hr Intravenous, 1,000 mL, CDT ONCE, at 1,000 mL/hr, Administer over 1 Hours, On Wed05/13/18 at 1041, For 1 dose 0.9% sodium chloride BOLUS New Bag 05/13/2018 11:24 AM CDT 82 mLs Intravenous, 100 mL, ONCE, On Wed05/13/18 at 1124, For 1 dose HYDROcodone-acetaminophen (NORCO) 5-325 MG Given 05/13 10:53 AM CDT 1 tablet per tablet 1 tablet 1 tablet, Oral, ONCE, On Wed05/13/18 at 1041, For 1 dose, Maximum acetaminophen dose from all sources= 75 mg/kg/day not to exceed 4 grams iopamidol (ISOVUE-370) solution 500 mL Given 05/13/2018 11:24 AM CDT 60 mLs 500 mL, Intravenous, ONCE, On Wed05/13/18 at 1124, For 1 dose Lidocaine (LIDOCARE) 4 % Given 05/13/2018 12:22 PM CDT 1 patch Other (see comments) Patch 1 patch 1 patch, Transdermal, ONCE, Administer over 12 Hours, On Wed05/13/18 at 1041, For 1 dose, Apply patch(s) to ribs. To prevent lidocaine toxicity, patient should be patch free for 12 hrs daily. Patches may be cut to smaller size prior to removing release liner. NEVER APPLY HEAT OVER PATCH which increases absorption and risk of local anesthetic toxicity. Do not apply over area where liposomal bupivacaine was injected for 96 hours post injection. documented in this encounter Active and Recently Administered Medications Times are shown in CDT. Scheduled Medication Order 05/11/2018 05/12/2018 05/13/2018 0.9% sodium chloride BOLUS (COMPLETED) 1054 (New Bag - Provider: Monika Slaughter RN)1154 (Stopped - Provider: Monika Slaughter RN) Intravenous, 1,000 mL, ONCE, at 1,000 mL /hr, Administer over 1 Hours, Wed05/13/18 at 1041, For 1 dose 0.9% sodium chloride BOLUS (COMPLETED) 1124 (New Bag - Provider: Yuliana Hall)1131 (Stopped - Provider: Yuliana Hall) Intravenous, 100 mL, ONCE, Wed05/13/18 at 1124, For 1 dose HYDROcodone-acetaminophen (NORCO) 5-325 MG per tablet 1 tablet ( COMPLETED) 1053 (Given - Provider: Monika Slaughter RN) 1 tablet, Oral, ONCE, Wed05/13/18 at 1041 , For 1 dose, Maximum acetaminophen dose from all sources= 75 mg/kg/day not to exceed 4 grams iopamidol (ISOVUE-370) solution 500 mL (COMPLETED) 1124 (Given - Provider: Yuliana Hall - Comment: bulk) 500 mL, Intravenous, ONCE, Wed05/13/18 at 1124, For 1 dose Lidocaine (LIDOCARE) 4 % Patch 1 patch 1222 (Given - Provider: Monika Slaughter RN - Comment: right rib) 1 patch, Transdermal, ONCE, Administer o germania 12 Hours, 05/13/18 at 1041, For 1 dose, Apply patch(s) to ribs. To prevent lidocaine toxicity, patient should be patch free for 12 hrs daily. Patches may be cut to smaller size prior to removing r elease liner. NEVER APPLY HEAT OVER PATCH which increases absorption and risk of local anesthetic toxicity. Do not apply over area where liposomal bupivacaine was injected for 96 hours post injection. documented in this encounter Additional Health Concerns Assessment Noted Time PHQ-9 Depression Total Score: 15 04/08/2018 7:11 AM CD T documented as of this encounter Care Teams [employer] Operator Relationship Specialty Start Date End Date Viri Gallardo, PCP - General Nurse Practitioner 06/29/17 04/14/20 MANAGER PHOTO SPRAY MACHINE OPERATOR [address] [place] [address] [place] [id number] Viri Gallardo, PCP - Assigned PCP 09/12/17 12/13/18 MANAGER PHOTO SPRAY MACHINE OPERATOR [address] [place] [address] [place] [id number] Viri Gallardo, Assigned PCP 09/12/1709/16 MANAGER PHOTO SPRAY MACHINE OPERATOR [facility] [place] [id number] documented as of this encounter
--- OUTSIDE RECORDS SUMMARY | 2022-09-05 18:56 | XMS_ITS | Encounter Summary ---
:1995 Author Organization [place] Address [address] [place] [address] Care Team Providers Name Role Phone Viri Gallardo APRN, CNP Primary Care Provider [phone] Viri Gallardo APRN, CNP Unavailable [phone] Viri Gallardo APRN, CNP Unavailable [phone] Reason for Visit Reason Comments Medication Refill varenicline (CHANTIX) 1 MG t ablet (Discontinued) Encounter Details Date Type Department Care Team Description 08/21/2018 Refill [facility] Viri Gallardo Medication Refill Clinic [place] Nicole APRN CNP (varenicline (CHANTIX) 1 [address] [place] [address] [facility] (Discontinued)) [address] [place] [address] [place] [address] [phone] Social History Tobacco Use Types Packs/Day Years [...] this encounter Miscellaneous Notes Telephone Encounter - Ivonne Norman - 08/24/2018 10:35 AM CST Prescription approved per [facility] Refill Protocol. Ivonne [place] RN OFF MACHINE OPERATOR CLOTH Telephone Encounter - Estrella Raymond - 08/23/2018 8:28 AM CST Requested Prescriptions Pending Prescriptions Disp Refills ??? CHANTIX 1 MG tablet [Pharmacy Med Name: CHANTIX 1 MG TABLET] Last Written Prescription Date: 05/05/2018 Last Fill Quantity: 56, # refills: 2 Last office visit: 07/28/2018 with prescribing provider: Viri Gallardo Future Office Visit: 56 tablet 2 Sig: TAKE 1 TABLET (1 MG) BY MOUTH 2 TIMES DAILY Partial Cholinergic Nicotinic Agonist Agents Passed 08/22/2018 6:49 AM Passed - Blood pressure under 140/90 in past 12 months BP Readings from Last 3 Encounters: 08/16/18 104/60 08/03/18 106/60 07/28/18 102/64 Passed - Recent (12 mo) or future [...] test on file in past 12 months OFF MACHINE OPERATOR CLOTH documented in this encounter Plan of Treatment Not on filedocumented as of this encounter Visit Diagnoses Diagnosis Encounter for tobacco use cessation coun seling documented in this encounter Additional Health Concerns Assessment Noted Time PHQ-9 Depression Total Score: 15 04/08/2018 7:11 AM CD T documented as of this encounter Care Teams Cooling Machine Operator Relationship Specialty Start Date End Date Viri Gallardo, PCP - General Nurse Practitioner 06/29/17 04/14/20 SHOT PEEN OPERATOR DINING CAR SERVER [address] [facility] [address] Viri Gallardo, PCP - Assigned PCP 09/12/17 12/13/18 SHOT PEEN OPERATOR DINING CAR SERVER [address] [facility] [place] [address] Viri Gallardo, Assigned PCP 09/12/1709/16 SHOT PEEN OPERATOR DINING CAR SERVER [address] [facility] [place] [address] documented as of this encounter
--- OUTSIDE RECORDS SUMMARY | 2022-09-05 18:56 | XMS_ITS | Encounter Summary ---
:1995 Author Organization [place] Address [address] [place] [address] Care Team Providers Name Role Phone Viri Gallardo APRN, CNP Primary Care Provider [phone] Viri Gallardo APRN CARBON SEQUESTRATION PLANT ENGINEER Unavailable [phone] Viri Gallardo APRN, CNP Unavailable [phone] Reason for Visit Reason Comments Urgent Care Cold Symptoms ears pain x 3 weeks, left ea r popped today, muffled sound, black stool x 1 week Encounter Details Date Type Department Care Team Description 08/16/2018 Office Visit [facility] [place] Urbano PA-C pharyngitis (Primary [address] [place] [address] [facility] Dx) [facility] [place] [address] [place] [address] [place] [address] Social History Tobacco Use Types Packs/Day [...] Sign Reading Time Taken Comments Blood Pressure 104/60 08/16/2018 3:50 PM KNOT SAW OPERATOR Pulse 77 08/16/2018 3:50 PM KNOT SAW OPERATOR Temperature 36.8 ??C (98.3 ??F) 08/16/2018 3:50 PM KNOT SAW OPERATOR Respiratory Rate - - Oxygen Saturation 98% 08/16/2018 3:50 PM KNOT SAW OPERATOR Inhaled Oxygen Concentration - - Weight - - Height - - Body Mass Index - - documented in this encounter Patient Instructions Patient InstructionsJosse Hassan PA-C - 08/16/2018 3:40 PM KNOT SAW OPERATOR Images from the original note were not included. With distilled water 2-3x per day for a minimum 2-3 days Mucinex, increased fluids, humidifier at night, steaming [...] humidified air to open blocked nasal passages. wafer line worker a hot shower or use a vaporizer. [...] sore throat Date Last Reviewed: 09/10/2016 ?? [phone] [employer]. [address] [place] [address]. All rights reserved. This information is not intended as a substitute for professional medical care. Always follow your healthcare professional's instructions. SAW OPERATOR documented in this encounter Progress Notes Josse Hassan PA-C - 08/16/2018 3:40 PM CST Images from the original note were not included. SUBJECTIVE: Joel Amos is a 23 year old female who presents to the clinic today with a chief complaint of ear pain for 3 weeks. Also sore throat. No fever. Dark stool 1 week ago. Past Medical History: Diagnosis Date ??? Anxiety [...] Max 2 tablets/24 hours. 18 tablet 3 Social History Substance Use Topics ??? Smoking status: Former Smoker Packs/day: 0.25 ??? Smokeless tobacco: Never Used ??? Alcohol use 0.0 oz/week 0 Standard drinks or equivalent per week Comment: states I don't even know re how many a week ROS Review of systems negative except as stated above. OBJECTIVE: BP 104/60 (BP Location: Right arm, Patient Position: Chair, Cuff Size: Adult Regular) Pulse 77 Temp 98.3 ??F (36.8 ??C) (Tympanic) SpO2 98% GENERAL APPEARANCE: healthy, alert and no distress [...] orders placed or performed in visit on 08/16/18 Strep, Rapid Screen Result Value Ref Range Specimen Description Throat Rapid Strep A Screen (A) POSITIVE: Group A Streptococcal antigen detected by immunoassay. ASSESSMENT: (J02.0) Acute streptococcal pharyngitis (primary encounter diagnosis) Comment: contacted 08/18 to begin antibiotic therapy and have family with symptoms checked Plan: Strep, Rapid Screen, penicillin V potassium (VEETID) 500 MG tablet Patient Instructions With distilled water 2-3x per day for a minimum 2-3 days Mucinex, increased fluids, humidifier at night, steaming [...] humidified air to open blocked nasal passages. wafer line worker a hot shower or use a vaporizer. [...] sore throat Date Last Reviewed: 09/10/2016 ?? [id number] [employer]. [address] [place] [address], [place] [address]. All rights reserved. This information is not intended as a substitute for professional medical care. Always follow your healthcare professional's instructions. SAW OPERATOR documented in this encounter Plan of Treatment Not on filedocumented as of this encounter Procedures Procedure Name Priority Date/Time Associated Diagnosis Comme nts RAPID STREP SCREEN Routine 08/16/2018 4:20 PM Acute streptococ ashley Results for this THROAT SWAB KNOT SAW OPERATOR pharyngitis procedure are i n the results section. documented in this encounter Results (ABNORMAL) Strep, Rapid Screen (08/16/2018 4:20 PM KNOT SAW OPERATOR) Component Value Ref Test Analysis Performed At [facility] Range Method Time Signature Specimen Throat [facility] [place] Rapid Strep A POSITIVE: Group 08/16/2018 [place] Screen A Streptococcal 4:39 PM KNOT SAW OPERATOR CLINICS antigen detected [place] by immunoassay. (A) Specimen Anatomical Collection Method Collection Time Receive d Time (Source) Location / / Volume Laterality Specimen from 08/16/2018 4:20 PM 08/16/20 18 4:23 throat KNOT SAW OPERATOR PM KNOT SAW OPERATOR (specimen) Josse Hassan PA-C LAB - MICRO GENERAL MAME FINNEY Performing Organization Address City/State/ZIP Code Phon e Number [facility] [place] [address] [facility] [place] [address] [phone] documented in this encounter Visit Diagnoses Diagnosis Acute streptococcal pharyngitis - Primar y Streptococcal sore throat documented in this encounter Additional Health Concerns Assessment Noted Time PHQ-9 Depression Total Score: 15 04/08/2018 7:11 AM CD T documented as of this encounter Care Teams Legal Compliance Officer Relationship Specialty Start Date End Date Viri Gallardo PCP - General Nurse Practitioner 06/29/17 04/14/20 FIREARMS SALES ASSOCIATE[address] [place] [address] Viri Gallardo, PCP - Assigned PCP 09/12/17 12/13/[address] [place] [address] Viri Gallardo, Assigned PCP 09/12/1709/16 FIREARMS SALES ASSOCIATE CARBON SEQUESTRATION PLANT ENGINEER [facility] [facility] [place] [address] documented as of this encounter
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
--- OUTSIDE RECORDS SUMMARY | 2022-09-05 18:56 | XMS_ITS | Encounter Summary ---
:1995 Author Organization [place] Address [address] [place] [address] Care Team Providers Name Role Phone Viri Gallardo APRN, CNP Primary Care Provider [phone] Viri Gallardo APRN, CNP Unavailable [phone] Viri Gallardo APRN, CNP Unavailable [phone] Reason for Referral Mental Health Outpatient - Closed Specialty Diagnoses / Procedures Referred By Contact Refer red To Contact Diagnoses Moderate bipolar II disorder, most recent episode major depressive (H) Viri Gallardo APRN CNP [address] [place] [address] [place] [address] Referral ID Status Reason Start Date Expiration Date Visits Requ ested Visits Authorized [id number] Closed 04/07/2018 04/07/2019 1 1 Reason for Visit Reason Comments Recheck Medication Referral Encounter Details Date Type Department Care Team Description 04/07/2018 [facility] Mod[facility] b ipolar II disorder, most recent episode major depressive (H) (Primary Dx); Clinic Jesu Nicole APRN Intractable chronic migraine without aura and without status migrainosus; [address] [place] [address] Encounter for tobacco use cessation [facility] [address] [place] [address] [place] [address] [phone] Social History Tobacco Use Types Packs/Day Years [...] Sign Reading Time Taken Comments Blood Pressure 108/66 04/07/2018 11:04 AM CDT Pulse 69 04/07/2018 11:04 AM CDT Temperature 36.3 ??C (97.4 ??F) 04/07/2018 11:04 AM CDT Respiratory Rate - - Oxygen Saturation 98% 04/07/2018 11:04 AM CDT Inhaled Oxygen Concentration - - Weight 51 kg (112 lb 8 oz) 04/07/2018 11:04 AM CDT Height 163.2 cm (5' 4.25) 04/07/2018 11:04 AM CDT Body Mass Index 19.16 04/07/2018 11:04 AM CDT documented in this encounter Patient Instructions Patient InstructionsMolitor, Viri Nicole APRN BOARDING SPECIALIST - 04/07/2018 10:40 AM CDT -Hydroxyzine as needed for anxiety -Schedule with new psychiatrist and therapist -When you are ready, dual diagnosis program -Ok to start Chantix. Watch for worsening mood. Phone visit 10 days. -Reduce caffine Crisis services in [place] We understand that as of April 09, 2018, [facility] will no longer be providing crisis hotlineservices. It is important for everyone to know that there are multiple crisis services available in [place], including the National Suicide Prevention Lifeline at 489-398-IFOA (2333). [place] will continue to have 03/05 crisis services available across the [facility], available both by phone and in-person by calling the appropriate county crisis phone number. A list of crisis services numbers can be found below as well as on the Department of Human Services website. Crisis Text Line is a text-based crisis line available across [place] 03/05. Text [place] to 584 348. In the [facility] area, people in crisis can call CRISIS (347153) from a mobile phone. This mobile phone service will soon be available statewide. Outside of the [facility], you can use the directory for mental health crisis phone numbers in [place] by county. The National Suicide Prevention Lifeline will continue to be available without interruption at 930-423-YMFZ (6704). documented in this encounter Progress Notes Viri Gallardo APRN CNP - 04/07/2018 10:40 AM CDT SUBJECTIVE: Joel Amos is a 22 year old female who presents to clinic today for the following health issues: Patient here today requesting Chantix for smoking cessation AND Patient here today requesting referral for mental health therapy Requesting medication for depression/anxiety AND Depression Followup ?? Status since last visit: Stable ?? See PHQ-9 for current symptoms. Other associated symptoms: anxiety - just quit job ?? Complicating factors: Significant life event: Yes- Quit job Current substance abuse: None and got Klonopin from a friend and was taking for 1 month - states shewas cutting the 1 mg pills in 10/14 Anxiety or Panic symptoms: Yes PHQ-9 03/02/2017 06/29/2017 04/07/2018 Total Score 17 13 15 Q9: Suicide Ideation Not at all Not at all Not at all In the past two weeks have you had thoughts of suicide or self-harm? No. Do you have concerns about your personal safety or the safety of others? No PHQ-9 Emirati PHQ-9 Any Language Suicide Assessment Five-step Evaluation and Treatment (SAFE-T) ?? Amount of exercise or physical activity: 2-3 days/week for an average of 45- 60 minutes ?? Problems taking medications regularly: No ?? Medication side effects: none ?? Diet: regular (no restrictions) Medication Followup of Imitrex Patient had Mirena removed and is experiencing headaches again ?? Taking Medication as prescribed: yes ?? Side Effects: None ?? Medication Helping Symptoms: yes ROS: const/psych/resp otherwise negative OBJECTIVE: BP 108/66 (BP Location: Right arm, Cuff Size: Adult Regular) Pulse 69 Temp 97.4 ??F (36.3 ??C) (Tympanic) Ht 5' 4.25 (1.632 m) Wt 112 lb 8 oz (51 kg) LMP 03/15/2018 (Approximate) SpO2 98% BMI 19.16 kg/m2 CONSTITUTIONAL: Alert, well-nourished, well-groomed, NAD RESP: Lungs CTA. No wheeze, rhonchi, rales. CV: HRRR S1 S2 No MRG. No peripheral edema PSYCH: Bright affect. Appropriate mentation and speech. ASSESSMENT/PLAN: (F31.81) Moderate bipolar II disorder, most recent episode major depressive (H) (primary encounter diagnosis) Comment: Patient with a history of bipolar disorder. It sounds like the only time she has been manicwas when she was on an SSRI. Has a history of co-morbid drug abuse including meth, suboxone (not prescribed to her), and cocaine. She got clonipin from a friend and was using that daily for a month butweaned off because she didn't have access to it. Currently more sober than usual over the last 6 months but occasionally uses cocaine and uses marijuana daily. Was seen by psychiatry about a year ago and started on Lamictal. She feels like she was much worse on Lamictal and wants to try something elsefor her symptoms. Currently anxiety is her most troubling sx. No SI or SIB. Plan: MENTAL HEALTH REFERRAL - Adult; Psychiatry and Medication Management, Outpatient Treatment; Individual/Couples/Family/Group Therapy/Health Psychology; Other: Behavioral Healthcare Providers ; We will contact you to schedule the appo..., hydrOXYzine (ATARAX) 25 MG tablet -. Crisis resources provided. -Avoid SSRI until on another mood stabilizer -Referred to psych to try alternative mood stabilizer. Did not tolerate Lamictal -Referred for therapy -Hydroxyzine prn for anxiety -Agreed to start Chantix but with great caution. [...] Chantix immediately if any worsening of mood. (G43.239) Intractable chronic migraine without aura and without status migrainosus Comment: Well controlled. Takes for migraines, which she typically gets around her periods. Plan: SUMAtriptan (IMITREX) 100 MG tablet (Z71.6) Encounter for tobacco use cessation counseling Comment: See above. Plan: varenicline (CHANTIX STARTING MONTH ) 0.5 MG X 11 & 1 MG X 42 tablet MAHENDRA Erickson-GENE. documented in this encounter Plan of Treatment Scheduled Referrals Name Type Priority Associated Diagnoses Order [facility] REFERRAL - Referral Routine Moderate bipolar II Ordered: 04/07/2018 Adult; Psychiatry and disorder, most rece nt Medication Management, episode major Outpatient Treatment; depressive (H) Individual/Couples/Famil y/Group Therapy/Health Psychology; Other: Behavioral Healthcare Providers ; We will contact you to schedule the appo... documented as of this encounter Visit Diagnoses Diagnosis Moderate bipolar II disorder, most recen t episode major depressive (H) - Primary Other bipolar disorders Intractable chronic migraine without aur a and without status migrainosus Chronic migraine without aura, with intr actable migraine, so stated, without mention of status migrainosus Encounter for tobacco use cessation coun seling documented in this encounter Additional Health Concerns Assessment Noted Time PHQ-9 Depression Total Score: 15 04/08/2018 7:11 AM CD T documented as of this encounter Care Teams Addictions Counselor Relationship Specialty Start Date End Date Viri Gallardo, PCP - General Nurse Practitioner 06/29/17 04/14/20 HAIR BOILER BOARDING SPECIALIST [address] [facility] [place] [id number] Viri Gallardo, PCP - Assigned PCP 09/12/17 12/13/18 HAIR BOILER BOARDING SPECIALIST [address] [facility] [place] [address] Viri Gallardo, Assigned PCP 09/12/1709/16 HAIR BOILER BOARDING SPECIALIST [address] [facility] [place] [address] documented as of this encounter
--- OUTSIDE RECORDS SUMMARY | 2022-09-05 18:56 | XMS_ITS | Encounter Summary ---
:1995 Author Organization [place] Address [address] [place] [address] Care Team Providers Name Role Phone Viri Gallardo APRN, CNP Primary Care Provider [phone] Viri Gallardo APRN, CNP Unavailable [phone] Viri Gallardo APRN, CNP Unavailable [phone] Reason for Visit Reason Onset Date Comments Patient Reminder 09/02/2018 Past due for pap fol low up Encounter Details Date Type Department Care Team Description 09/02/2018 Telephone [place] [facility] Viri Gallardo Patient Reminder (Past Center Jesu Nicole APRN CNP due for pap follow up) [address] [place] [id number] [facility] [address] [place], [place] [address] [place] [phone] (Wo rk) Social History Tobacco Use Types [...] this encounter Miscellaneous Notes Telephone Encounter - Padmini Solis - 09/02/2018 2:47 PM CST Pt is past due for Pap follow up Reminder letter has been sent [facility] her clinic with any questions or to schedule Padmini Solis, Store Clerk Cashier Pap Tracking NG SHEAR OPERATOR documented in this encounter Plan of Treatment Not on filedocumented as of this encounter Visit Diagnoses Not on filedocumented in this encounter Additional Health Concerns Assessment Noted Time PHQ-9 Depression Total Score: 15 04/08/2018 7:11 AM CD T documented as of this encounter Care Teams Hotel Casino Floorperson Relationship Specialty Start Date End Date Viri Gallardo, PCP - General Nurse Practitioner 06/29/17 04/14/20 PORTFOLIO ACCOUNTANT PERSONAL TRAINER [address] [facility] [place] [address] Viri Gallardo, PCP - Assigned PCP 09/12/17 12/13/18 PORTFOLIO ACCOUNTANT PERSONAL TRAINER [address] [place] [address] [place] [address] Viri Gallardo, Assigned PCP 09/12/1709/16 PORTFOLIO ACCOUNTANT PERSONAL TRAINER [facility] [place] [address] documented as of this encounter
--- OUTSIDE RECORDS SUMMARY | 2022-09-05 18:57 | XMS_ITS | Encounter Summary ---
:1995 Author Organization [facility] Address [address] [place] [address] Care Team Providers Name Role Phone Viri Gallardo APRN, CNP Primary Care Provider [phone] Viri Gallardo APRN SUPERVISOR [employer] Unavailable [phone] Viri Gallardo APRN, CNP Unavailable [phone] Reason for Visit Reason Comments Abdominal Pain Dizziness Encounter Details Date Type Department Care Team Description 09/15/2017 Emergency [facility] Pam Schmidt Abdomina l pain of unknown cause; [facility] Emergency MD Farzaneh Nonintractable episodic headache, unspec ified headache type; Dept [facility] Non-intractable vomiting wit h nausea, unspecified vomiting type; [address] [place] Intermittent confusion [place], [place] [address] [facility] [id number] [place] [address] [phone] (Wo rk) Social History Tobacco Use Types [...] Sign Reading Time Taken Comments Blood Pressure 115/88 09/15/2017 1:31 PM TRIAL EXAMINER Pulse 58 09/15/2017 1:31 PM TRIAL EXAMINER Temperature 36.9 ??C (98.5 ??F) 09/15/2017 10:40 AM TRIAL EXAMINER Respiratory Rate 20 09/15/2017 10:40 AM TRIAL EXAMINER Oxygen Saturation 100% 09/15/2017 2:02 PM TRIAL EXAMINER Inhaled Oxygen Concentration - - Weight - - Height - - Body Mass Index - - documented in this encounter Discharge Instructions Discharge InstructionsPam Schmidt MD - 09/15/2017 2:02 PM TRIAL EXAMINER Images from the original note were not included. Discharge Instructions Abdominal Pain Abdominal pain (belly pain) can be caused by many things. Your evaluation today does not show the exact cause for your pain. Your provider today has decided that it is unlikely your pain is due to a life threatening problem, or a problem requiring surgery or hospital admission. Sometimes those problems cannot be found right away, so it is very important that you follow up as directed. Sometimes only the changes which occur over time allow the cause of your pain to be found. Generally, every Emergency Department visit should have a follow-up clinic visit with either a primary or a specialty clinic/provider. Please follow-up as instructed by your emergency provider today. With abdominal pain, we often recommend very close follow-up, such as the following day. ADULTS: Return to the Emergency Department right away if: ??? You get an oral temperature above 102oF or as directed by your provider. ??? You have blood in your stools. This may be bright red or appear as black, tarry stools. ??? You keep vomiting (throwing up) or cannot drink liquids. ??? You see blood when you vomit. ??? You cannot have a bowel movement or you cannot pass gas. ??? Your stomach gets bloated or bigger. ??? Your skin or the whites of your eyes look yellow. ??? You faint. ??? You have bloody, frequent or painful urination (peeing). ??? You have new symptoms or anything that worries you. CHILDREN: Return to the Emergency Department right away if your child has any of the above-listed symptoms or the following: ??? Pushes your hand away or screams/cries when his/her belly is touched. ??? You notice your child is very fussy or weak. ??? Your child is very tired and is too tired to eat or drink. ??? Your child is dehydrated. Signs of dehydration can be: o Significant change in the amount of wet diapers/urine. o Your infant or child starts to have dry mouth and lips, or no saliva (spit) or tears. WOMEN: Return to the Emergency Department right away if you have any of the above-listed symptoms or the following: ??? You have bleeding, leaking fluid or passing tissue from the vagina. ??? You have worse pain or cramping, or pain in your shoulder or back. ??? You have vomiting that will not stop. ??? You have a temperature of 100oF or more. ??? Your baby is not moving as much as usual. ??? You faint. ??? You get a bad headache with or without eye problems and abdominal pain. ??? You have a seizure. ??? You have unusual discharge from your vagina and abdominal pain. Abdominal pain is pretty common during . Your pain may or may not be related to your . You should follow-up closely with your OB provider so they can evaluate you and your baby. Untilyou follow-up with your regular provider, do the following: ??? Avoid sex and do not put anything in your vagina. ??? Drink clear fluids. ??? Only take medications approved by your provider. MORE INFORMATION: Appendicitis: A possible cause of abdominal pain in any person who still has their appendix is acuteappendicitis. Appendicitis is often hard to diagnose. Testing does not always rule out early appendicitis or other causes of abdominal pain. Close follow-up with your provider and re-evaluations may beneeded to figure out the reason for your abdominal pain. Follow-up: It is very important that you make an appointment with your clinic and go to the appointment. If you do not follow-up with your primary provider, it may result in missing an important development which could result in permanent injury or disability and/or lasting pain. If there is any problem keeping your appointment, call your provider or return to the Emergency Department. Medications: Take your medications as directed by your provider today. Before using leak-scl-ttuqfavnzbtkxazrgl, ask your provider and make sure to take the medications as directed. If you have any questions about medications, ask your provider. Diet: Resume your normal diet as much as possible, but do not eat fried, fatty or spicy foods while you have pain. Do not drink alcohol or have caffeine. Do not smoke tobacco. Probiotics: If you have been given an antibiotic, you may want to also take a probiotic pill or eat yogurt with live cultures. Probiotics have good bacteria to help your intestines stay healthy. Studies have shown that probiotics help prevent diarrhea (loose stools) and other intestine problems (including C. diff [...] if there is anything that worries you. Discharge Instructions Headache You were seen today for a headache. Headaches may be caused by many different things such as muscle tension, sinus inflammation, anxiety and stress, having too little sleep, too much alcohol, some medical conditions or injury. You may have a migraine, which is caused by changes in the blood vessels inyour head. At this time your provider does not find that your headache is a sign of anything dangerous or life-threatening. However, sometimes the signs of serious illness do not show up right away. Generally, every Emergency Department visit should have a follow-up clinic visit with either a primary or a specialty clinic/provider. Please follow-up as instructed by your emergency provider today. Return to the Emergency Department if: ??? You get a new fever of 100.4??F or higher. ??? Your headache gets much worse. ??? You get a stiff neck with your headache. ??? You get a new headache that is significantly different or worse than headaches you have had before. ??? You are vomiting (throwing up) and cannot keep food or water down. ??? You have blurry or double vision or other problems with your eyes. ??? You have a new weakness on one side of your body. ??? You have difficulty with balance which is new. ??? You or your family thinks you are confused. ??? You have a seizure. What can I do to help myself? Pain medications - You may take a pain medication such as Tylenol?? (acetaminophen), Advil??, Motrin?? (ibuprofen) or Aleve?? (naproxen). ??? Take a pain reliever as soon as you notice symptoms. Starting medications as soon as you start to have symptoms may lessen the amount of pain you have. ??? Relaxing in a quiet, dark room may help. ??? Get enough sleep and eat meals regularly. ??? You may need to watch for certain foods or other things which may trigger your headaches. Keeping a journal of your headaches and possible triggers may help you and your primary provider to identify things which you should avoid which may be causing your headaches. If you were given a prescription for [...] if there is anything that worries you. Symptoms With Uncertain Cause (Adult) You have been examined, and tests may have been done. However, the exact cause of your symptoms is still not certain. Watch for any new symptoms or worsening of your condition. Another exam or more testing at a later time may be needed. Unless told otherwise, you can go back to your normal routine. Follow-up care Follow up with your healthcare provider??if your symptoms do not begin to improve in the next few days,??or as advised by our staff.?? When to seek medical advice Call your healthcare provider if your symptoms get worse or if new symptoms appear. Date Last Reviewed: 04/05/2015 ?? [phone] [employer]. [address] [place] [address]. All rights reserved. This information is not intended as a substitute for professional medical care. Always follow your healthcare professional's instructions. L EXAMINER documented in this encounter Medications at Time of Discharge Medication Sig Dispensed Refills Start Date End Date dicyclomine (BENTYL) 20 Take 1 tablet (20 40 tablet 1 09/1509/24/2017 MG tablet mg) by mouth 4 times daily as needed GABAPENTIN PO Take 500 mg by mouth 0 0 11/23/2017 daily For anxiety lamoTRIgine (LAMICTAL) 1 tab Qd 21 tablet 0 06/03/2017 100 MG tablet levonorgestrel (MIRENA) 1 each by 0 0 04/07/2018 20 MCG/24HR IUD Intrauterine route once LORazepam (ATIVAN) 0.5 MG Take 1 tablet (0.5 4 tablet 0 11/23/2017 tablet mg) by mouth every 8 hours as needed for anxiety or other (intractable nausea) Do not operate a vehicle after taking this medication Multiple 0 09/24/2017 Vitamins-Minerals (HAIR SKIN NAILS PO) ondansetron (ZOFRAN) 4 MG Take 1 tablet (4 mg) 30 tablet 1 06/08/2017 09/24/2017 tabletIndications: Nausea by mouth every 8 hours as needed for nausea polyethylene glycol Take 17-34 g (1-2 510 g 1 7 09/24/2017 (MIRALAX) capfuls) by mouth powderIndications: daily Intractable vomiting with nausea, unspecified vomiting type prochlorperazine Take 1 tablet (10 20 tablet 1 09/07/2017 1 11/25/2016 (COMPAZINE) 10 MG mg) by mouth every 8 tabletIndications: hours as needed for Intractable vomiting with nausea or vomiting nausea, unspecified vomiting type promethazine (PHENERGAN) Take 1 tablet (25 12 tablet 0 08/1209/24/2017 25 MG tablet mg) by mouth every 6 hours as needed for nausea or vomiting SUMAtriptan (IMITREX) 100 Take 1 tablet (100 18 tablet 3 04/07/2018 MG tabletIndications: mg) by mouth at Intractable chronic onset of headache migraine without aura and for migraine May without status repeat in 2 hours. migrainosus Max 2 tablets/24 hours. triamcinolone (KENALOG) Apply topically 3 0 07/14/2018 0.1 % lotion times daily varenicline (CHANTIX Take 0.5 mg tab 53 tablet 0 08/26/2017 11/23/2017 STARTING MONTH MARNIE) 0.5 daily for 3 days, MG X 11 & 1 MG X 42 then 0.5 mg tab tabletIndications: twice daily for 4 Tobacco abuse days, then 1 mg twice daily. documented as of this encounter ED Notes Isabela River RN - 09/15/2017 10:41 AM CST Patient presents complaining of generalized abdominal pain and vomiting for the past month, and dizziness this morning. She is alert and oriented, ABCs intact. L EXAMINER Pam Schmidt MD - 09/15/2017 10:35 AM CST History Chief Complaint: Abdominal Pain and Dizziness HPI Joel Amos is a 22 year old female with a medical history of anxiety, bipolar disorder, depression, migraines, and marijuana dependence who presents with abdominal pain and dizziness. Patient reports that she has been experiencing intermittent sharp generalized abdominal pain, nausea, and vomiting for the past month. Patient presented here in the emergency department 08/31/17 and 09/07/17. Pelvic ultrasound and abdominal x-ray was obtained during those visits. Pelvic ultrasound was normal, andabdominal x-ray just showed moderate amount of fecal material throughout the colon. She notes that she felt dizzy this morning and some visual disturbances. On evaluation, patient states her pain radiates to her back now, as well as having a headache, similar to previous headaches. No known alleviating or aggravating factors to her abdominal and back pain. Pain is worse at abdominal midline. Per fiance, he noted that the patient did not seem like herself and increased confusion. Patient also has been experiencing some short term memory loss. She has had worsening depression for the last 2 weeks. Denies suicidal or homicidal ideation, self-harm, urinary problems, fevers, chills. Patient is currently having her menstrual period. She also has an IUD in place. Patient also notes that she discontinuedmarijuana week for the last week with no improvement of symptoms. Allergies: No known drug allergies Medications: Compazine Miralax Bentyl Phenergan Hair skin nails Gabapentin Varenicline Imitrex Zofran Lamictal Mirena Past Medical History: Anxiety Bipolar disorder HPV Depression Marijuana dependence Migraines Depressive disorder Past Surgical History: History reviewed. No pertinent surgical history. Family History: Hypertension Social History: Smoking status: Current some day smoker Alcohol use: None, 2 times per month, 2-3 per time. Marital Status: Single [1] Significant other at bedside. Review of Systems Constitutional: Negative for fever. Gastrointestinal: Positive for abdominal pain, constipation, nausea and vomiting. Genitourinary: Negative for difficulty urinating, dysuria, frequency and hematuria. Neurological: Positive for dizziness, light-headedness and headaches. Psychiatric/Behavioral: Positive for confusion and dysphoric mood. Negative for self-injury and suicidal ideas. All other systems reviewed and are negative. Physical Exam Patient Vitals for the past 24 hrs: BP Temp Temp src Pulse Resp SpO2 09/15/17 1331 115/88 - - 58 - 100 % 09/15/17 1230 (!) 130/97 - - 56 - 100 % 09/15/17 1215 122/80 - - 53 - 100 % 09/15/17 1200 (!) 137/93 - - (!) 48 - 100 % 09/15/17 1040 (!) 124/91 98.5 ??F (36.9 ??C) Temporal 76 20 100 % Physical Exam General: Adult female laying down. Eyes: PERRL, Conjunctive within normal limits ENT: Moist mucous membranes, oropharynx clear. CV: Normal S1S2, no murmur, rub or gallop. Regular rate and rhythm Resp: Clear to auscultation bilaterally, no wheezes, rales or rhonchi. Normal respiratory effort. GI: Diffuse abdominal tenderness to palpation. Hyperactive bowel soundsNo palpable masses. No rebound or guarding. MSK: No edema. Nontender. Normal active range of motion. Skin: Warm and dry. No rashes or lesions or ecchymoses on visible skin. Neuro: Alert and oriented. Responds appropriately to all questions and commands. No focal findings appreciated. Normal muscle tone. Psych: Normal mood and affect. Pleasant. Emergency Department Course ECG (11:11:38): Rate 66 bpm. AK interval 142. QRS duration 90. QT/QTc 418/438. P-R-T axes 47 49 56. Normal sinus rhythm with sinus arrhythmia. Normal ECG. Agree with computer interpretation. Interpreted at 1115 by Pam Schmidt MD. Imaging: Radiographic findings were communicated with the patient who voiced understanding of the findings. CT Abdomen Pelvis w Contrast No acute abnormality is identified to explain the patient's symptoms. As read by Radiology. MR Brain w/o & w contrast Normal brain MRI. As read by Radiology. Laboratory: CBC: WNL (WBC 8.0, HGB 15.7, PLT 299) CMP: Glucose 101 (H) WNL (Creatinine 0.72) Lipase: 101 HCG: Negative UA: Urine bloo Trace o/w WNL TSH: 1.65 Interventions: 1138: Omnipaque 25 mLs oral 1141: NS 1L IV Bolus 1144: Zofran 4 mg IV 1242: Ativan 0.5 mg IV 1303: Gadavist 5 mLs IV Emergency Department Course: Past medical records, nursing notes, and vitals reviewed. 1056: I performed an exam of the patient and obtained history, as documented above. IV inserted and blood drawn. ECG obtained, results above. The patient was sent for a CT Abdomen pelvis and MR brain while in the emergency department, findings above. Patient reassessed. Notes she feels better but feels as though the tension in her abdomen is returning again. I rechecked the patient. Findings and plan explained to the Patient and significant other. Patient discharged home with instructions regarding supportive care, medications, and reasons to return. The importance of close follow-up was reviewed. Impression & Plan Medical Decision Making: Joel Amos is a 22 year old female presents to the emergency department with diffuse abdominalpain as well as concerns for headaches of which she has episodes of in the past migraines but withassociated with intermittent confusion which is new for her and appreciated by her significant other. Here she has no focal neurologic deficit. She has diffuse abdominal tenderness which is not localized. Multiple etiologies have been considered for her symptoms. With regards to the abdominal pain, I considered bowel obstruction, IBS, IBD, cyclic pain and vomiting due to marijuana use, constipation, less likely appendicitis or gall bladder pathology. CT scan did not show any acute pathology that would explain her symptoms. She seemed to have improvement with ativan here, unclear what that may suggest. She also is noting headache without neurologic deficit on examination and by history which soundslike some short term memory issues. MRI was obtained to the brain to exclude obvious abnormalities such as mass or demyelinating disease/MS. Here the MRI brain did not show any acute pathology that would explain her symptoms. Overall, her symptoms are not clear and she should seek further assessment with [facility] as appropriate. I recommend close follow-up with her PCP in the mean time. Patient should return to the emergency department if her symptoms worsens. Bentyl if helps, Tylenol, warm compresses, warm baths, etc, for abdominal pain. Very small number of ativan as needed for intractable nausea or anxiety. All questions answered prior to discharge. Diagnosis: ICD-10-CM 1. Abdominal pain of unknown cause R10.9 2. Nonintractable episodic headache, unspecified headache type R51 3. Non-intractable vomiting with nausea, unspecified vomiting type R11.2 4. Intermittent confusion R41.0 Disposition: discharged to home Discharge Medications: Details LORazepam (ATIVAN) 0.5 MG tablet Take 1 tablet (0.5 mg) by mouth every 8 hours as needed for anxietyor other (intractable nausea) Do not operate a vehicle after taking this medication, Disp-4 tablet, R-0, Local Print Anita Goldsmith 09/15/2017 [facility] EMERGENCY DEPARTMENT I, Anita Goldsmith, am serving as a scribe at 10:56 AM on 09/15/2017 to document services personally performed by Pam Schmidt MD based on my observations and the provider's statements to me. Pam Schmidt MD 09/15/17 4959 L EXAMINER documented in this encounter Plan of Treatment Not on filedocumented as of this encounter Procedures Procedure Name Priority Date/Time Associated Comments Diagnosis CT ABDOMEN PELVIS W STAT 09/15/2017 1:29 PM Re sults for this CONTRAST TRIAL EXAMINER procedure are i n the results section. MR BRAIN W/O & W STAT 09/15/2017 1:10 PM Resul ts for this CONTRAST TRIAL EXAMINER procedure are i n the results section. HCG QUALITATIVE URINE STAT 09/15/2017 11:55 Re sults for this AM TRIAL EXAMINER procedure are i n the results section. ROUTINE UA WITH STAT 09/15/2017 11:55 Results for this MICROSCOPIC AM TRIAL EXAMINER procedure are i n the results section. CBC WITH PLATELETS & STAT 09/15/2017 11:27 Res ults for this DIFFERENTIAL AM TRIAL EXAMINER procedure are i n the results section. TSH STAT 09/15/2017 11:27 Results for this AM TRIAL EXAMINER procedure are i n the results section. LIPASE STAT 09/15/2017 11:27 Results for this AM TRIAL EXAMINER procedure are i n the results section. COMPREHENSIVE STAT 09/15/2017 11:27 Results fo r this METABOLIC PANEL AM TRIAL EXAMINER procedure ar e in the results section. EKG 12-LEAD, TRACING STAT 09/15/2017 11:11 Res ults for this ONLY AM TRIAL EXAMINER procedure are i n the results section. documented in this encounter Results CT Abdomen Pelvis w Contrast (09/15/2017 1:29 PM TRIAL EXAMINER) Anatomical Region Laterality Modality Abdomen/Pelvis, SUBRAD CT BODY, UMP CT ABDOMEN PELVIS, Computed Tomography RAD CT Specimen (Source) Anatomical Location Collection Method / Collectio n Time Received Time / Laterality Volume Impressions 09/15/2017 4:10 PM TRIAL EXAMINER IMPRESSION: No acute abnormality is identified to explain the patient's symptoms. JULEE SRIVASTAVA MD Narrative 09/15/2017 4:[address] ABDOMEN AND PELVIS WITH CONTRAST ?? 09/15/2017 1:29 PM HISTORY: Abdomen pain. TECHNIQUE: ??CT abdomen and pelvis with 57 mL Isovue-370 IV. Radiation dose for this scan was reduced using aut omated exposure control, adjustment of the mA and/or kV according to patient size, or iterative reconstruction technique. COMPARISON: None. FINDINGS: IUD in the central uterus in a ppropriate position. No bowel obstruction is seen. Moderate stool seen diffusely throughout the colon. The appendix appears normal. No i nflammatory change of the bowel. No free fluid or free air. No bobbi dence for abscess. Postcontrast liver, gallbladder, adrenal s, spleen, pancreas, and kidneys do not show any acute abnormalit ies. No acute aortic abnormality. Procedure Note Julee Srivastava MD - 09/15/2017Forma tting of this note might be different from the original. CT ABDOMEN AND PELVIS WITH CONTRAST 09/15 1:29 PM HISTORY: Abdomen pain. TECHNIQUE: CT abdomen and pelvis with 57 mL Isovue-370 IV. Radiation dose for this scan was reduced using aut omated exposure control, adjustment of the mA and/or kV according to patient size, or iterative reconstruction technique. COMPARISON: None. FINDINGS: IUD in the central uterus in a ppropriate position. No bowel obstruction is seen. Moderate stool seen diffusely throughout the colon. The appendix appears normal. No i nflammatory change of the bowel. No free fluid or free air. No bobbi dence for abscess. Postcontrast liver, gallbladder, adrenal s, spleen, pancreas, and kidneys do not show any acute abnormalit ies. No acute aortic abnormality. IMPRESSION: No acute abnormality is iden tified to explain the patient's symptoms. JULEE SRIVASTAVA MD Pam Schmidt MD IMG CT ORDERABLES MR Brain w/o & w Contrast (09/15/2017 1:10 PM TRIAL EXAMINER) Anatomical Region Laterality Modality Head, SUBRAD MR NEURO, UMP MR NEURO, RAD MR Magnetic Resonance Specimen (Source) Anatomical Location Collection Method / Collectio n Time Received Time / Laterality Volume Impressions 09/15/2017 3:01 PM TRIAL EXAMINER IMPRESSION: Normal brain MRI. GILMA VAZQUEZ MD Narrative 09/15/2017 3:01 PM TRIAL EXAMINER MRI OF THE BRAIN WITHOUT AND WITH CONTRAST ??09/15/2017 1:10 PM COMPARISON: None. HISTORY: ??Confusion, occasional memory loss, vision changes. TECHNIQUE: Multi-sequence, multi-planar MRI images of the brain were acquired before and after the administra tion of IV gadolinium (5 mL Gadavist). FINDINGS: The ventricles and basal ciste rns are normal in configuration. There is no midline shift . There are no extra-axial fluid collections. Urbano-white differenti ation is well maintained. There is no evidence for stroke or acute intracranial hemorrhage. There is no abnormal contrast enhancemen t in the brain or its coverings. There is no sinusitis or mastoiditis. Procedure Note Gilma Vazquez MD - 09/15/2017Forma tting of this note might be different from the original. MRI OF THE BRAIN WITHOUT AND WITH CONTRA ST 09/15/2017 1:10 PM COMPARISON: None. HISTORY: Confusion, occasional memory lo ss, vision changes. TECHNIQUE: Multi-sequence, multi-planar MRI images of the brain were acquired before and after the administra tion of IV gadolinium (5 mL Gadavist). FINDINGS: The ventricles and basal ciste rns are normal in configuration. There is no midline shift . There are no extra-axial fluid collections. Urbano-white differenti ation is well maintained. There is no evidence for stroke or acute intracranial hemorrhage. There is no abnormal contrast enhancemen t in the brain or its coverings. There is no sinusitis or mastoiditis. IMPRESSION: Normal brain MRI. GILMA VAZQUEZ MD Pam Schmidt MD G MRI ORDERABLES HCG qualitative urine (09/15/2017 11:55 AM TRIAL EXAMINER) athologist Signature HCG Qual Urine Negative NEG^Negati 09/15/2017 [facility] 12:18 PM [facility] Comment: This test is for screening purposes. ??R esults should be interpreted along with the clinical picture. ??Confirmation te sting is available if warranted by ordering [id number], HCG Quantitative Pregna ncy. Specimen Anatomical Collection Method Collection Time Receive d Time (Source) Location / / Volume Laterality Urine specimen URINE SPECIMEN 09/15/2017 11:55 017 (specimen) OBTAINED BY CLEAN AM TRIAL EXAMINER 12:[address] CATCH PROCEDURE / Unknown Pam Schmidt MD LAB - URINE ORDERABLES Performing Organization Address City/State/ZIP Code Phon e Number [facility] [address] [address] [facility] [address] [address] 7, [facility] [phone] (ABNORMAL) UA with Microscopic (09/15/2017 11:55 AM TRIAL EXAMINER) [facility] gist Method Time Signature Color Urine Yellow 09/15/2017 [facility] 12:21 PM [facility] Appearance Urine Clear 09/15/2017 [facility] 12:21 PM [facility] Glucose Urine Negative NEG^Negat 09/15/2017 [facility] herrera mg/dL 12:21 PM [facility] Bilirubin Urine Negative NEG^Negat 09/15/2017 [facility] herrera 12:21 PM [facility] Ketones Urine Negative NEG^Negat 09/15/2017 [facility] herrera mg/dL 12:21 PM [facility] Specific [place] 1.010 1.003 - 09/15/2017 [facility] Urine 1.035 12:21 PM [facility] Blood Urine Trace (A) NEG^Negat 09/15/2017 [facility] herrera 12:21 PM [facility] pH Urine 6.0 5.0 - 7.0 09/15/2017 [facility] pH 12:21 PM [facility] Protein Albumin Negative NEG^Negat 09/15/2017 [facility] Urine herrera mg/dL 12:21 PM [facility] Urobilinogen Negative 0.0 - 2.0 09/15/2017 [facility] mg/dL mg/dL 12:21 PM [facility] Nitrite Urine Negative NEG^Negat 09/15/2017 [facility] herrera 12:21 PM [facility] Leukocyte Negative NEG^Negat 09/15/2017 [facility] Esterase Urine herrera 12:21 PM [facility] Source Midstream 09/15/2017 [facility] Urine 12:06 PM [facility] WBC Urine 0 0 - 2 09/15/2017 [facility] /HPF 12:28 PM [facility] RBC Urine 0 0 - 2 09/15/2017 [facility] /HPF 12:28 PM [facility] Squamous <1 0 - 1 09/15/2017 [facility] Epithelial /HPF /HPF 12:28 PM [facility] Specimen (Source) Anatomical Collection Method Collection Time Re ceived Time Location / / Volume Laterality Examination of URINE SPECIMEN 09/15/2017 11:55 017 midstream urine OBTAINED BY CLEAN AM TRIAL EXAMINER 12:06 P M [facility] specimen CATCH PROCEDURE / (procedure) Unknown Pam Schmidt MD LAB - URINE ORDERABLES Performing Organization Address City/State/ZIP Code Phon e Number [facility] [address] [place], [place] [address] [facility] [address] [place], [place] [address], [facility] [phone] TSH (09/15/2017 11:27 AM TRIAL EXAMINER) P athologist Signature TSH 1.65 0.40 - 4.00 09/15/2017 [facility] mU/L 12:29 PM [facility] Specimen Anatomical Collection Method Collection Time Receive d Time (Source) Location / / Volume Laterality Blood specimen 09/15/2017 11:27 7 (specimen) AM TRIAL EXAMINER 11:48 AM TRIAL EXAMINER Pam Schmidt MD LAB - BLOOD ORDERABLES Performing Organization Address City/[facility]/ZIP [facility] edinson Casey [facility] [address] [place], [place] [address] [address], [facility] [phone] Lipase (09/15/2017 11:27 AM TRIAL EXAMINER) athologist Signature Lipase 101 73 - 393 09/15/2017 [facility] U/L 12:22 PM [facility] Specimen Anatomical Collection Method Collection Time Receive d Time (Source) Location / / Volume Laterality Blood specimen 09/15/2017 11:27 7 (specimen) AM TRIAL EXAMINER 11:48 AM TRIAL EXAMINER Pam Schmidt MD LAB - BLOOD ORDERABLES Performing Organization Address City/[facility] Phon e Carmela [facility] [address] [place], [place] [address] [address] [address] [address] [place], [place] [address] 7, [facility] [phone] (ABNORMAL) Comprehensive metabolic panel (09/15/2017 11:27 AM TRIAL EXAMINER) athologist Signature Sodium 139 133 - 144 09/15/2017 [facility] mmol/L 12:22 PM [facility] Potassium 4.4 3.4 - 5.3 09/15/2017 [facility] mmol/L 12:22 PM [facility] Chloride 107 94 - 109 09/15/2017 [facility] mmol/L 12:22 PM [facility] Carbon Dioxide 25 20 - 32 09/15/2017 [facility] mmol/L 12:22 PM [facility] Anion Gap 7 3 - 14 09/15/2017 [facility] mmol/L 12:22 PM [facility] Glucose 101 (H) 70 - 99 09/15/2017 [facility] mg/dL 12:22 PM [facility] Urea Nitrogen 11 7 - 30 09/15/2017 [facility] mg/dL 12:22 PM [facility] Creatinine 0.72 0.52 - 09/15/2017 [facility] 1.04 mg/dL 12:22 PM [facility] GFR Estimate >90 >60 09/15/2017 [facility] mL/min/1.7 12:[address] Comment: Non GFR Calc GFR Estimate If >90 >60 mL/min/1.7m2 09/15/2017 12:22 PM [facility] Comment: GFR Calc Calcium 9.0 8.5 - 10.1 mg/dL 09/15/2017 12:22 PM [facility] Bilirubin Total 0.4 0.2 - 1.3 mg/dL 09/15/2017 12:22 P M [facility] Albumin 4.4 3.4 - 5.0 g/dL 09/15/2017 12:22 PM [facility] Protein Total 8.0 6.8 - 8.8 g/dL 09/15/2017 12:22 PM [facility] Alkaline Phosphatase 44 40 - 150 U/L 09/15/2017 12:22 PM [facility] ALT 21 0 - 50 U/L 09/15/2017 12:22 PM [facility] AST 9 0 - 45 U/L 09/15/2017 12:22 PM [facility] Specimen Anatomical Collection Method Collection Time Receive d Time (Source) Location / / Volume Laterality Blood specimen 09/15/2017 11:27 7 (specimen) AM TRIAL EXAMINER 11:48 AM TRIAL EXAMINER Pam Schmidt MD LAB - BLOOD ORDERABLES Performing Organization Address City/State/ZIP Code Phon e Number M [facility] [address] [place], [place] [address] [phone] CBC with platelets differential (09/15/2017 11:27 AM [facility]) [employer] Method Time Signature WBC 8.0 4.0 - 09/15/2017 [facility] 11.0 11:56 AM [facility] 10e9/L [facility] RBC Count 4.88 3.8 - 5.2 09/15/2017 [facility] 10e12/L 11:56 AM [facility] Hemoglobin 15.7 11.7 - 09/15/2017 [facility] 15.7 g/dL 11:56 AM [facility] Hematocrit 46.5 35.0 - 09/15/2017 [facility] 47.0 % 11:56 AM [facility] MCV 95 78 - 100 09/15/2017 [facility] fl 11:56 AM [facility] MCH 32.2 26.5 - 09/15/2017 [facility] 33.0 pg 11:56 AM [facility] MCHC 33.8 31.5 - 09/15/2017 [facility] 36.5 g/dL 11:56 AM [facility] RDW 12.4 10.0 - 09/15/2017 [facility] 15.0 % 11:56 AM [facility] Platelet Count 299 150 - 450 09/15/2017 [facility] 10e9/L 11:56 AM [facility] Diff Method Automated 09/15/2017 [facility] Method 11:56 AM [facility] % Neutrophils 51.3 % 09/15/2017 [facility] 11:56 AM [facility] % Lymphocytes 36.1 % 09/15/2017 [facility] 11:56 AM [facility] % Monocytes 8.1 % 09/15/2017 [facility] 11:56 AM [facility] % Eosinophils 3.2 % 09/15/2017 [facility] 11:56 AM [facility] % Basophils 1.1 % 09/15/2017 [facility] 11:56 AM [facility] % Immature 0.2 % 09/15/2017 [facility] Granulocytes 11:56 AM [facility] Nucleated RBCs 0 0 /100 09/15/2017 [facility] 11:56 AM [facility] Absolute 4.1 1.6 - 8.3 09/15/2017 [facility] Neutrophil 10e9/L 11:56 AM [facility] Absolute 2.9 0.8 - 5.3 09/15/2017 [facility] Lymphocytes 10e9/L 11:56 AM [facility] Absolute 0.7 0.0 - 1.3 09/15/2017 [facility] Monocytes 10e9/L 11:56 AM [facility] Absolute 0.3 0.0 - 0.7 09/15/2017 [facility] Eosinophils 10e9/L 11:56 AM [facility] Absolute 0.1 0.0 - 0.2 09/15/2017 [facility] Basophils 10e9/L 11:56 AM [facility] Abs Immature 0.0 0 - 0.4 09/15/2017 [facility] Granulocytes 10e9/L 11:56 AM [facility] Absolute 0.0 09/15/2017 [facility] Nucleated RBC 11:56 AM [facility] Specimen Anatomical Collection Method Collection Time Receive d Time (Source) Location / / Volume Laterality Blood specimen 09/15/2017 11:27 7 (specimen) AM TRIAL EXAMINER 11:48 AM TRIAL EXAMINER Pam Schmidt MD LAB - BLOOD ORDERABLES Performing Organization Address City/State/ZIP Code Phon e Number [place] [address] [phone] EKG 12 lead (09/15/2017 11:11 AM TRIAL EXAMINER) [facility] gist Method Time Signature Interpretation ECG Click View RADIOLOGY Image link RESULTS to view waveform and result Specimen (Source) Anatomical Collection Method Collection Time Re ceived Time Location / / Volume Laterality 09/15/2017 11:11 AM TRIAL EXAMINER Pam Schmidt MD ECG ORDERABLES Performing Organization Address City/State/ZIP [facility] Phon e Number RADIOLOGY RESULTS documented in this encounter Visit Diagnoses Diagnosis Abdominal pain of unknown cause Nonintractable episodic headache, unspec ified headache type Non-intractable vomiting with nausea, un specified vomiting type Intermittent confusion Unspecified psychosis documented in this encounter Administered Medications Inactive Administered Medications - up to 3 most recent administrations Medication Order MAR Action Action Date Dose Rate Site 0.9% sodium chloride BOLUS New Bag 09/15/2017 11:41 AM 1,000 mLs 1000 mL/hr Intravenous, 1,000 mL, TRIAL EXAMINER ONCE, at 1,000 mL/hr, Administer over 1 Hours, On Wed09/15/17 at 1046, For 1 dose 0.9% sodium chloride BOLUS New Bag 09/15/2017 1:20 PM TRIAL EXAMINER 54 mLs Intravenous, 1,000 mL, ONCE, On Wed09/15/17 at 1318, For 1 dose 0.9% sodium chloride infusion at 125 mL/hr, Intravenous, CONTINUOUS, A dminister after the bolus., Starting on Wed09/15/17 at 1046, Until Wed09/15/17 at 1617 gadobutrol (GADAVIST) injection 7.5 mL Given 09/15/2017 1:03 PM TRIAL EXAMINER 5 mLs 7.5 mL, Intravenous, ONCE, On Wed09/15/17 at 1230, For 1 dose iohexol (OMNIPAQUE) solution 25 mL Given 09/15/2017 11:38 AM TRIAL EXAMINER 25 mLs 25 mL, Oral, EVERY 30 MIN, First dose on Wed09/15/17 at 1115, For 2 doses iopamidol (ISOVUE-370) solution 500 mL Given 09/15/2017 1:20 PM TRIAL EXAMINER 57 mLs 500 mL, Intravenous, ONCE, On Wed09/15/17 at 1318, For 1 dose LORazepam (ATIVAN) injection 0.5 mg Given 09/15/2017 12:42 PM TRIAL EXAMINER 0.5 mg 0.5 mg, Intravenous, ONCE, On Wed09/15/17 at 1133, For 1 dose, For IV PUSH: Dilute with equal volume of NS. For ordered doses up to 4 mg give IV Push. Administer each 2mg over 1-5 minutes. documented in this encounter Active and Recently Administered Medications Times are shown in TRIAL EXAMINER. Scheduled Medication Order 09/13/2017 09/14/2017 09/15/2017 0.9% sodium chloride BOLUS (COMPLETED) 1141 (New Bag - Provider: Naya Camacho RN)1407 (Stopped - Provider: Nita Rhodes RN) Intravenous, 1,000 mL, ONCE, at 1,000 mL /hr, Administer over 1 Hours, On Wed09/15/17 at 1046, For 1 dose 0.9% sodium chloride BOLUS (COMPLETED) 1320 (New Bag - Provider: Yuliana Hall - Comment: bulk)1326 (Stopped - Provider: Yuliana Hall) Intravenous, 1,000 mL, ONCE, Wed09/15/17 at 1318, For 1 dose gadobutrol (GADAVIST) injection 7.5 mL (COMPLETED) 1303 (Given - Provider: Donald Mejia) 7.5 mL, Intravenous, ONCE, Wed09/15/17 at 1230, For 1 dose iohexol (OMNIPAQUE) solution 25 mL 1138 (Given - Provider: Naya Camacho, ERROL)1145 (Due) 25 mL, Oral, EVERY 30 MIN, First dose on Wed09/15/17 at 1115, Fo r 2 doses iopamidol (ISOVUE-370) solution 500 mL (COMPLETED) 1320 (Given - Provider: Yuliana Hall - Comment: bulk) 500 mL, Intravenous, ONCE, Wed09/15/17 at 1318, For 1 dose LORazepam (ATIVAN) injection 0.5 mg (COMPLETED) 1242 (Given - Provider: Naya Camacho, ERROL) 0.5 mg, Intravenous, ONCE, Wed09/15/17 a t 1133, For 1 dose, For IV PUSH: Dilute with equal volume of NS. For ordered doses up to 4 mg give IV Push. Administer each 2mg over 1-5 minutes. ondansetron (ZOFRAN) injection 4 mg 1144 (Hold - Provider: Naya Camacho RN - Reason: Other) 4 mg, Intravenous, ONCE, Administer over 2-5 Minutes, Wed09/15/17 at 1140, For 1 dose, Irritant. For ordered doses up to 4 mg, give IV Push undiluted over 2-5 minutes. Continuous Medication Order 09/13/2017 09/14/2017 09/15/2017 0.9% sodium chloride infusion 10 46 (Canceled Entry - Provider: Orders Generic Provider - Comment: Automatically canceled at discontinue of medication order) at 125 mL/hr, Intravenous, CONTINUOUS, A dminister after the bolus., Starting Wed09/15/17 at 1046, Until Wed09/15/17 at 1617 documented in this encounter Additional Health Concerns Assessment Noted Time PHQ-9 Depression Total Score: 13 06/29/2017 2:50 PM CD T documented as of this encounter Care Teams Irrigation Specialist Relationship Specialty Start Date End Date Viri Gallardo, PCP - General Nurse Practitioner 06/29/17 04/14/20 [facility] [address] [facility] [place] [address] Viri Gallardo, PCP - Assigned PCP 09/12/17 12/13/18 [facility] [address] [place] [address] [place] [address] Viri Gallardo, Assigned PCP 09/12/1709/16 [facility] [address] [place] [address] [place] [address] documented as of this encounter
--- OUTSIDE RECORDS SUMMARY | 2022-09-05 18:57 | XMS_ITS | Encounter Summary ---
:1995 Author Organization [place] Address [address] [place] [address] Care Team Providers Name Role Phone Viri Gallardo APRN SUPERVISOR PLASTIC SHEETS Primary Care Provider [phone] Reason for Visit Reason Comments RECHECK follow up Encounter Details Date Type Department Care Team Description 06/29/2017 Office Visit [facility] Viri Gallardo bron chitis, unspecified organism (Primary Dx); Clinic Jesu Nicole APRN Encounter for smoking cessat ion counseling; [address] [facility] Need for prophylactic vaccination and in oculation against influenza [address] [facility] [address] [place] [address] [place] [id number] Social History Tobacco Use Types Packs/Day Years Used Date Smoking Tobacco: Some Days Smokeless Tobacco: Never Alcohol Use Standard Drinks/Week Comments No 0 (1 standard drink = 0.6 oz [...] Sign Reading Time Taken Comments Blood Pressure 104/64 06/29/2017 2:48 PM CDT Pulse 83 06/29/2017 2:48 PM CDT Temperature 36.6 ??C (97.9 ??F) 06/29/2017 2:48 PM CDT Respiratory Rate - - Oxygen Saturation 98% 06/29/2017 2:48 PM CDT Inhaled Oxygen Concentration - - Weight 49.9 kg (109 lb 14.4 oz) 06/29/2017 2:48 PM CDT Height 163.2 cm (5' 4.25) 06/29/2017 2:48 PM CDT Body Mass Index 18.72 06/29/2017 2:48 PM CDT documented in this encounter Patient Instructions Patient InstructionsMolitorViri APRN CNP - 06/29/2017 2:40 PM CDT -Suck on lozenge -Constant water -Z pack (antibiotic) -Nicotine patch -Call me when mood stable and we will consider Chantix for smoking documented in this encounter Progress Notes Viri Gallardo APRN CNP - 06/29/2017 2:40 PM CDT SUBJECTIVE: Joel Amos is a 22 year old female who presents to clinic today for the following health issues: Patient here today for follow up of bronchitis. Patient states still having SOB, wheezing, fatigue, sweats.: 5-6 weeks of coughing. No shortness of breath or chest pain. No weight loss or bloody sputum. ROS: const/heent/resp otherwise negative OBJECTIVE: BP 104/64 (Cuff Size: Adult Regular) Pulse 83 Temp 97.9 ??F (36.6 ??C) (Tympanic) Ht 5' 4.25 (1.632 m) Wt 109 lb 14.4 oz (49.9 kg) LMP 06/16/2017 (Exact Date) SpO2 98% BMI 18.72 kg/m2 CONSTITUTIONAL: Alert, well-nourished, well-groomed, NAD RESP: Lungs CTA. No wheeze, rhonchi, rales. CV: HRRR S1 S2 No MRG. No peripheral edema HEENT: Eyes: Conjunctiva pink and moist. Ears: Ear canals unremarkable. TMs pearly jj bilaterally.Bony landmarks and light reflexes intact. No erythema. Nose: Turbinates pink and moist. Throat: OP pink and moist. No tonsillar enlargement or exudates. No postnasal drip. Neck: No lymphadenopathy or masses. Thyroid smooth, non-tender, and non-enlarged. ASSESSMENT/PLAN: (J20.9) Acute bronchitis, unspecified organism (primary encounter diagnosis) Comment: Ongoing now for 5-6 weeks. Some improvement with albuterol but cough lingering. Likely still viral but reasonable to try Azithromycin. No current wheezing so steroids not indicated. If not improving dramatically in 1 week will have her RTC for re-evaluation and CXR. Would also consider starting ICS at that time. Plan: azithromycin (ZITHROMAX) 250 MG tablet Discussed supportive cares and reasons to return. Vitamin C, fluids, rest, limit smoking. (Z71.6, Z72.0) Encounter for smoking cessation counseling Comment: Smoking 0.75 PPD. Not mentally stable enough for Chantix. Plan: nicotine (NICODERM CQ) 14 MG/24HR 24 hr patch. Opted to dose down given weight. Encouraged the patch plus method. Counseling given. She has gum at home. Discussed r/b/se. (Z23) Need for prophylactic vaccination and inoculation against influenza Plan: FLU VAC, SPLIT VIRUS IM > 3 YO (QUADRIVALENT) [83007], Vaccine Administration, Initial [32951] MAHENDRA Erickson-GENE. Injectable Influenza Immunization Documentation 1. Is the person to be vaccinated sick today? No 2. Does the person to be vaccinated have an allergy to a component of the vaccine? No 3. Has the person to be vaccinated ever had a serious reaction to influenza vaccine in the past? No 4. Has the person to be vaccinated ever had Guillain-Alvarez?? syndrome? No Form completed by Aneta Varghese CMA documented in this encounter Nursing Notes Aneta Varghese MA - 06/29/2017 2:40 PM CDT Chief Complaint Patient presents with ??? RECHECK follow up Initial BP 104/64 (Cuff Size: Adult Regular) Pulse 83 Temp 97.9 ??F (36.6 ??C) (Tympanic) Ht 5' 4.25 (1.632 m) Wt 109 lb 14.4 oz (49.9 kg) LMP 06/16/2017 (Exact Date) SpO2 98% BMI 18.72 kg/m2 Estimated body mass index is 18.72 kg/(m^2) as calculated from the following: Height as of this encounter: 5' 4.25 (1.632 m). Weight as of this encounter: 109 lb 14.4 oz (49.9 kg). Medication Reconciliation: complete Aneta Varghese CMA documented in this encounter Plan of Treatment Not on filedocumented as of this encounter Visit Diagnoses Diagnosis Acute bronchitis, unspecified organism - Primary Encounter for smoking cessation counseli Counseling on substance use and abuse Need for prophylactic vaccination and in oculation against influenza documented in this encounter Additional Health Concerns Assessment Noted Time PHQ-9 Depression Total Score: 13 06/29/2017 2:50 PM CD T documented as of this encounter Care Teams Director Content Marketing Relationship Specialty Start Date End Date Viri Gallardo APRN SUPERVISOR PLASTIC SHEETS PCP - General Nurse Practitioner 06/29/17 04/14/20 [address] [facility] [place] [address] documented as of this encounter
--- OUTSIDE RECORDS SUMMARY | 2022-09-05 18:57 | XMS_ITS | Encounter Summary ---
:1995 Author Organization [place] Address [address] [place] [address] Care Team Providers Name Role Phone Viri Gallardo APRN, CNP Primary Care Provider [phone] No Ref-Primary, Physician Primary Care Provider [phone] Viri Gallardo APRN CLAIM ADJUSTER Unavailable [phone] Viri Gallardo APRN CLAIM ADJUSTER Unavailable [phone] Ailyn Medina RN Unavailable Unavailable SamiViri APRN CLAIM ADJUSTER Unavailable [phone] Chasity Wild PA-C Unavailable [phone] Sami, Viri Nicole APRN CLAIM ADJUSTER Unavailable [phone] Kenisha Garcia APRN CLAIM ADJUSTER Unavailable [phone] Reason for Visit Reason Onset Date Comments Refill Request 07/26/2017 nicotine (NICODERM C Q) 14 MG/24HR 24 hr patch Encounter Details Date Type Department Care Team Description 07/26/2017 Refill [facility] Viri Gallardo Refill Req uest (nicotine Clinic Fred Nicole APRN CNP (NICODERM CQ) 14 MG/24HR [address] [facility] [address] [facility] 24 hr patch) [facility] [address] [place] [address] [place] [address] [phone] Social History Tobacco Use Types Packs/Day Years [...] this encounter Miscellaneous Notes Telephone Encounter - Valerie Gilbert RN - 07/27/2017 1:34 PM CDT Routing refill request to provider for review/approval because: Please advise if ok to continue with refill. Patient has not contacted clinic with the following concerns per SHERRI note: Instructions -Suck on lozenge -Constant water -Z pack (antibiotic) ?? -Nicotine patch ?? -Call me when mood stable and we will consider Chantix for smoking Telephone Encounter - Estrella Raymond - 07/26/2017 9:01 AM CDT nicotine (NICODERM CQ) 14 MG/24HR 24 hr patch Last Written Prescription Date: 06/29/2017 Last Fill Quantity: 30, # refills: 0 Last Office Visit with [facility] or [facility] prescribing provider: 07/22/2017 BP Readings from Last 3 Encounters: 07/22/17 110/70 06/29/17 104/64 06/22/17 102/60 documented in this encounter Plan of Treatment Not on filedocumented as of this encounter Visit Diagnoses Diagnosis Encounter for smoking cessation counseli navi Counseling on substance use and abuse documented in this encounter Additional Health Concerns Assessment Noted Time PHQ-9 Depression Total Score: 13 06/29/2017 2:50 PM CD T documented as of this encounter Care Teams Statistical Consultant Relationship Specialty Start Date End Date Viri Gallardo PCP - General Nurse Practitioner 06/29/17 04/14/20 DORIAN Nicole CLAIM ADJUSTER [address] [facility] [place] [address] No Ref-Primary, PCP - General 04/15/20 Physician Viri Gallardo PCP - Assigned PCP 09/12/17 12/13/18 DORIAN Nicloe [address] [place], [place] [phone] Viri Gallardo Nurse Practitioner 04/15/20 DORIAN Nicole [address] [place], [place] [phone] Ailyn Medina, RN Clinic Environmental Economist Primary Care - CC 07/08/18 07/08/18 Viri Gallardo Assigned PCP 09/12/17 09/16/19 DORIAN Nicole [address] [place], [place] [id number] Chasity Wild Assigned PCP 09/17/19 08/17/20 JAGDISH Romero [address] [facility] [address] [place] [place], [place] [phone] Viri Gallardo Assigned PCP 08/18/20 04/24/21 DORIAN Nicole [address] [place] [phone] Kenisha Garcia Assigned PCP 04/25/21 DORIAN Sawyer CLAIM ADJUSTER [facility] [facility] [place] [address] documented as of this encounter
--- OUTSIDE RECORDS SUMMARY | 2022-09-05 18:57 | XMS_ITS | Encounter Summary ---
:1995 Author Organization [facility] Address [address] [place] [address] Care Team Providers Name Role Phone Viri Gallardo APRN, CNP Primary Care Provider [phone] Reason for Visit Reason Comments Vomiting Encounter Details Date Type Department Care Team Description 08/31/2017 Emergency [facility] Juanjo Melendrez A bdominal pain, generalized; [facility] Emergency Dep t Lightheadedness; [address] EMERGENCY PHYSICIANS [facility] [id number] [address] [facility] [phone] [place], [place] [address] (Wo rk) Social History Tobacco Use Types [...] Sign Reading Time Taken Comments Blood Pressure 108/57 08/31/2017 11:32 AM MACHINE GRAINER Pulse 72 08/31/2017 8:00 AM MACHINE GRAINER Temperature 36.3 ??C (97.4 ??F) 08/31/2017 8:00 AM MACHINE GRAINER Respiratory Rate 16 08/31/2017 8:00 AM MACHINE GRAINER Oxygen Saturation 97% 08/31/2017 11:32 AM MACHINE GRAINER Inhaled Oxygen Concentration - - Weight 49.9 kg (110 lb) 08/31/2017 8:00 AM MACHINE GRAINER Height 162.6 cm (5' 4) 08/31/2017 8:00 AM MACHINE GRAINER Body Mass Index 18.88 08/31/2017 8:00 AM MACHINE GRAINER documented in this encounter Discharge Instructions Discharge InstructionsJuanjo Melendrez MD - 08/31/2017 11:32 AM MACHINE GRAINER Discharge Instructions Abdominal Pain Abdominal pain (belly [...] directed by your provider today. Before using [id number], ask your provider and make sure to [...] is anything that worries you. Discharge Instructions Dizziness (Lightheaded) Today you were seen for dizziness. Dizziness can be caused by many things and it can be very difficult to determine the cause of dizziness. At this time, your provider has found no signs that your dizziness is due to a serious or life- threatening condition. However, sometimes there is a serious problem that does not show up right away, and it is important for you to follow up with your regular provider as instructed. Generally, every Emergency Department visit should have a follow-up clinic visit with either a primary or a specialty clinic/provider. Please follow-up as instructed by your emergency provider today. Return to the Emergency Department if: ??? You pass out (fainting or falling out), especially during exercise. ??? You develop chest pain, chest pressure or difficulty breathing. ??? Your feel an irregular heartbeat. ??? You have excessive vaginal bleeding, or blood in your stool or vomit (throw up). ??? You have a high fever. ??? Your symptoms get worse or more frequent. If when you begin to feel dizzy or lightheaded, it is important to sit down or lay down immediately to prevent injury from falling. If you were given a prescription for [...] if there is anything that worries you. INE GRAINER documented in this encounter Medications at Time of Discharge Medication Sig Dispensed Refills Start Date End Date dicyclomine (BENTYL) 20 Take 1 tablet (20 mg) 20 tablet 0 1 10/31/2016 09/15/2017 MG tablet by mouth 4 times daily as needed GABAPENTIN PO Take 500 mg by mouth 0 0 11/23/2017 daily For anxiety lamoTRIgine (LAMICTAL) 1 tab Qd 21 tablet 0 06/03/2017 100 MG tablet levonorgestrel (MIRENA) 1 each by 0 0 04/07/2018 20 MCG/24HR IUD Intrauterine route once Multiple 0 09/24/2017 Vitamins-Minerals (HAIR SKIN NAILS PO) ondansetron (ZOFRAN) 4 Take 1 tablet (4 mg) 30 tablet 1 09/24/2017 MG tabletIndications: by mouth every 8 Nausea hours as needed for nausea promethazine (PHENERGAN) Take 1 tablet (25 mg) 12 tablet 0 08/31/2017 09/24/2017 25 MG tablet by mouth every 6 hours as needed for nausea or vomiting SUMAtriptan (IMITREX) Take 1 tablet (100 18 tablet 3 201604/07/2018 100 MG mg) by mouth at onset tabletIndications: of headache for Intractable chronic migraine May repeat migraine without aura in 2 hours. Max 2 and without status tablets/24 hours. migrainosus triamcinolone (KENALOG) Apply topically 3 0 07/14/2018 0.1 % lotion times daily varenicline (CHANTIX Take 0.5 mg tab daily 53 tablet 0 08/1111/23/2017 STARTING MONTH ) 0.5 for 3 days, then 0.5 MG X 11 & 1 MG X 42 mg tab twice daily tabletIndications: for 4 days, then 1 mg Tobacco abuse twice daily. documented as of this encounter ED Notes Lucila Contreras RN - 08/31/2017 11:09 AM CST Patient notes she got relief from IV pain meds for about 20 minutes. Now pain is back up to a 04/19. Will discuss with Dr. Melendrez. INE GRAINER Garfield Sam RN - 08/31/2017 7:58 AM CST Pt complaining of suprapubic pain and intermittent vomitting. Pt describes pain as sharp pain that comes and goes. Pt states Its really weird, I will throw up at random times. Pt had a pap smear 08/26 and Mirena was checked. Pt had Mirena placed 2013. Pt A&Ox4. ABCDs intact. Juanjo Gaming MD - 08/31/2017 7:48 AM CST History Chief Complaint: Vomiting HPI Joel Amos is a 22 year old female who presents to the emergency department today for evaluation of suprapubic abdominal pain and vomiting. The patient reports she has an IUD in place, which was placed in July 2015 after she had twins. She had a pap smear exam on of last week and also reports having an acupuncture therapy session last week for the first time as well. Ever since the acupuncture treatment, she had felt dizzy and unstable and also vomited the day after the treatment. At times she felt like fainting, but denies any syncopal episodes of late. She vomited again yesterday and continues to feel off. As for her abdominal pain which began last night, nothing seems to make her feel better or worse. The pain is described as intermittent, does not radiate, and is sharp feeling. No dysuria, vaginal discharge, or other urinary symptoms. She denies any recent problems with vaginal bleeding. Has always had problems with her bowel movements and states that she thinks she might have IBS. Is feeling nauseous, but did take a Zofran tablet today. Ibuprofen taken for pain this morning as well. Allergies: No Known Drug Allergies Medications: ondansetron (ZOFRAN) 4 MG tablet GABAPENTIN PO varenicline (CHANTIX STARTING MONTH ) 0.5 MG X 11 & 1 MG X 42 tablet SUMAtriptan (IMITREX) 100 MG tablet lamoTRIgine (LAMICTAL) 100 MG tablet levonorgestrel (MIRENA) 20 MCG/24HR IUD Past Medical History: Anxiety & depression Bipolar 1 disorder Migraines Past Surgical History: History reviewed. No pertinent past surgical history. Family History: Hypertension Diabetes Cancer Social History: The patient was alone in the ED. Smoking Status: current, 0.25 ppd Alcohol Use: occasional Marital Status: Single [1] Review of Systems Gastrointestinal: Positive for abdominal pain, nausea and vomiting. Genitourinary: Negative for dysuria, vaginal bleeding and vaginal discharge. Neurological: Positive for dizziness. Negative for syncope. All other systems reviewed and are negative. Physical Exam First Vitals: BP: 129/69 Pulse: 72 Heart Rate: 72 Temp: 97.4 ??F (36.3 ??C) Resp: 16 Height: 162.6 cm (5' 4) Weight: 49.9 kg (110 lb) SpO2: 100 % Physical Exam Constitutional: Pleasant, age appropriate. Resting comfortably in the bed. Eyes: Conjunctiva normal Neck: Supple, no meningismus. CV: Regular rate and rhythm. No murmurs, rubs or gallops. PULM: Clear to auscultation bilateral. No respiratory distress. Good air exchange. No rales or wheezing. ABD: Soft, non-distended. Mild tenderness in the midline low abdomen. Bowel sounds normal. No pulsatile masses. No rebound, guarding or rigidity. No CVA tenderness. : Normal external genitalia. No perineal lesions. No blood in the in the vaginal vault. No vaginal discharge. No cervical motion tenderness. IUD strings not present No adnexal tenderness. No adnexal mass. MSK: No gross deformity to all four extremities. LYMPH: No cervical lymphadenopathy. NEURO: Alert. Good muscular tone, no atrophy. Skin: Warm, dry and intact. Psych: Mood is good and affect is appropriate. Emergency Department Course ECG: ECG taken at 0847, ECG read at 0851 Normal sinus rhythm Normal ECG No significant change from ECG dated 10/30/16. Rate 63 bpm. LA interval 130. QRS duration 96. QT/QTc 418/427. P-R-T axes 52,62,60. Imaging: Radiology findings were communicated with the patient who voiced understanding of the findings. US Pelvic Complete with Transvaginal 1. IUD in the normal position. 2. Small amount of free fluid in the pelvis. Otherwise unremarkable. Reading per radiology Laboratory: Laboratory findings were communicated with the patient who voiced understanding of the findings. UA with micro: RBC 3 (H), squamous epithelial 2 (H), bacteria few (A), mucous present (A), blood small (A) o/w negative HCG Qualitative Urine: negative CBC: WBC 8.5, HGB 15.1, PLT 290 BMP: AWNL (Creatinine 0.68) Interventions: 0817 Zofran 4 mg IV 0943 GI cocktail 30 mL PO 0944 Dilaudid 0.5 mg IV 1132 [place] 1 tablet PO Emergency Department Course: Nursing notes and vitals reviewed. 0757 I entered the room. 0801 I performed an exam of the patient as documented above. IV was inserted and blood was drawn for laboratory testing, results above. The patient received the above intervention(s). The patient was sent for a transvaginal ultrasound while in the emergency department, results above. 0923 the patient was rechecked and she was updated on the results of her laboratory studies. 1131 the patient was rechecked and she was updated on the results of her imaging studies. 1132 No clinical response with D50. I discussed the treatment plan with the patient. They expressed understanding of this plan and consented to discharge. They will be discharged home with instructions for care and follow up. In addition, the patient will return to the emergency department if their symptoms persist, worsen, if new symptoms arise or if there is any concern. All questions were answered. Impression & Plan Medical Decision Making: Joel Amos is a 22 year old female who presents to the emergency department today for evaluation of primary complaints of diffuse lower abdominal pain. On examination, she has no signs of vaginitis, cervicitis, PID. Urinalysis is unremarkable. On pelvic examination, I could not find the IUD strings, although ultrasound revealed the IUD was in proper positioning. There is no associated pelvic pathology such as ovarian cyst or mass. Remainder of her laboratory studies are reassuring. Differential diagnosis for her pain at this point include endometriosis, viral illness, IBS, IBD. Given the duration of her symptoms, it is not suggestive of diverticulitis, appendicitis, and has no clinical signsof obstruction. No indication of a CT scan at this time. The patient is safe for discharge home withsupportive care. The patient also reports dizziness as a sense of near syncope. She is not anemic, no volume depletion. EKG shows no evidence of arrhythmia or cardiac conduction defects. The cause of her symptoms are uncertain at this time. Recommended close follow up with primary care provider to ensure improvement. Diagnosis: ICD-10-CM 1. Abdominal pain, generalized R10.84 2. Lightheadedness R42 3. Nausea R11.0 Disposition: The patient was discharged to home with the below medications to be taken at home as instructed. [facility] Diagnoses: None Discharge Medications: Discharge Medication List as of 08/31/2017 11:39 AM START taking these medications Details dicyclomine (BENTYL) 20 MG tablet Take 1 tablet (20 mg) by mouth 4 times daily as needed, Disp-20 tablet, R-0, Local PrintPRN abdominal pain promethazine (PHENERGAN) 25 MG tablet Take 1 tablet (25 mg) by mouth every 6 hours as needed for nausea or vomiting, Disp-12 tablet, R-0, Local Print Scribe Disclosure: I, Isak Borges, am serving as a scribe at 7:57 AM on 08/31/2017 to document services personally performed by Juanjo Melendrez MD, based on my observations and the provider's statements to me. [facility] EM[facility] Juanjo Melendrez MD 08/31/17 8285 INE GRAINER documented in this encounter Plan of Treatment Not on filedocumented as of this encounter Procedures Procedure Name Priority Date/Time Associated Comments Diagnosis US PELVIC STAT 08/31/2017 10:55 Results for this TRANSABDOMINAL AND AM MACHINE GRAINER procedure are in TRANSVAGINAL the results section. EKG 12-LEAD, TRACING STAT 08/31/2017 8:47 AM R esults for this ONLY MACHINE GRAINER procedure are i n the results section. HCG QUALITATIVE URINE STAT 08/31/2017 8:40 AM Results for this MACHINE GRAINER procedure are i n the results section. ROUTINE UA WITH STAT 08/31/2017 8:40 AM Result s for this MICROSCOPIC MACHINE GRAINER procedure are i n the results section. BASIC METABOLIC PANEL STAT 08/31/2017 8:10 AM Results for this MACHINE GRAINER procedure are i n the results section. CBC WITH PLATELETS STAT 08/31/2017 8:10 AM Res ults for this MACHINE GRAINER procedure are i n the results section. documented in this encounter Results US Pelvic Complete with Transvaginal (08/31/2017 10:55 AM MACHINE GRAINER) Anatomical Region Laterality Modality Abdomen/Pelvis Ultrasound Specimen (Source) Anatomical Location Collection Method / Collectio n Time Received Time / Laterality Volume Impressions 08/31/2017 3:27 PM MACHINE GRAINER IMPRESSION: 1. IUD in the normal position. 2. Small amount of free fluid in the pel vis. Otherwise unremarkable. KM HENRY MD Narrative 08/31/2017 3:27 PM MACHINE GRAINER ULTRASOUND ??PELVIC COMPLETE WITH TRANSVAGINAL IMAGING ?? 08/31/2017 10:55 AM HISTORY: Low abdominal pain; reported in trauterine device in place, but no strings on exam. TECHNIQUE: ??Transvaginal images were pe rformed to better evaluate the patient's uterus, ovaries and endometria l stripe. COMPARISON: None. FINDINGS: The uterus is normal measuring 8.5 x 7.6 x 4.6 cm. No fibroids. There is an IUD in place in th e usual position. The right ovary measures 3.3 x 3.3 x 1.5 cm and appears normal. The left ovary measures 1.6 x 2.8 x 2.6 cm a nd appears normal. There is color Doppler blood flow to both ovaries identified. Trace amount of free fluid. Procedure Note Km Henry MD - 08/31/2017Formattin g of this note might be different from the original. ULTRASOUND PELVIC COMPLETE WITH TRANSVAG INAL IMAGING 08/31/2017 10:55 AM HISTORY: Low abdominal pain; reported in trauterine device in place, but no strings on exam. TECHNIQUE: Transvaginal images were perf ormed to better evaluate the patient's uterus, ovaries and endometria l stripe. COMPARISON: None. FINDINGS: The uterus is normal measuring 8.5 x 7.6 x 4.6 cm. No fibroids. There is an IUD in place in th e usual position. The right ovary measures 3.3 x 3.3 x 1.5 cm and appears normal. The left ovary measures 1.6 x 2.8 x 2.6 cm a nd appears normal. There is color Doppler blood flow to both ovaries identified. Trace amount of free fluid. IMPRESSION: 1. IUD in the normal position. 2. Small amount of free fluid in the pel vis. Otherwise unremarkable. KM HENRY MD Juanjo Melendrez MD IMG US ORDERABLES EKG 12 lead (08/31/2017 8:47 AM MACHINE GRAINER) Patholo gist Method Time Signature Interpretation ECG Click View RADIOLOGY Image link RESULTS to view waveform and result Specimen (Source) Anatomical Collection Method Collection Time Re ceived Time Location / / Volume Laterality 08/31/2017 8:47 AM MACHINE GRAINER Juanjo Melendrez MD ECG ORDERABLES Performing Organization Address City/State/ZIP Code Phon e Number RADIOLOGY RESULTS HCG qualitative urine (08/31/2017 8:40 AM MACHINE GRAINER) P athologist Signature HCG Qual Urine Negative NEG^Negati 08/31/2017 [facility] 9:23 AM [facility] Comment: This test is for screening purposes. ??R esults should be interpreted along with the clinical picture. ??Confirmation te sting is available if warranted by ordering [id number], HCG Quantitative Pregna ncy. Specimen Anatomical Collection Method Collection Time Receive d Time (Source) Location / / Volume Laterality Urine specimen URINE SPECIMEN 08/31/2017 8:40 AM 08/31 8:54 (specimen) OBTAINED BY CLEAN MACHINE GRAINER AM MACHINE GRAINER CATCH PROCEDURE / Unknown Juanjo Melendrez MD LAB - URINE ORDERABLES Performing Organization Address City/State/ZIP Code Phon e Number [place] [address] [address] [place], [place] [address] [facility] [address] [phone] (ABNORMAL) UA with Microscopic (08/31/2017 8:40 AM [facility]) [facility] Method Time Signature Color Urine Yellow 08/31/2017 [facility] 9:19 AM [facility] Appearance Urine Slightly 08/31/2017 [facility] Cloudy 9:19 AM [facility] Glucose Urine Negative NEG^Negat 08/31/2017 [facility] herrera mg/dL 9:19 AM [facility] Bilirubin Urine Negative NEG^Negat 08/31/2017 [facility] herrera 9:19 AM [facility] Ketones Urine Negative NEG^Negat 08/31/2017 [facility] herrera mg/dL 9:19 AM [facility] Specific [place] 1.026 1.003 - 08/31/2017 [facility] Urine 1.035 9:19 AM [facility] Blood Urine Small (A) NEG^Negat 08/31/2017 [facility] herrera 9:19 AM [facility] pH Urine 5.0 5.0 - 7.0 08/31/2017 [facility] pH 9:19 AM [facility] Protein Albumin Negative NEG^Negat 08/31/2017 [facility] Urine herrera mg/dL 9:19 AM [facility] Urobilinogen 0.0 0.0 - 2.0 08/31/2017 [facility] mg/dL mg/dL 9:19 AM [facility] Nitrite Urine Negative NEG^Negat 08/31/2017 [facility] herrera 9:19 AM [facility] Leukocyte Negative NEG^Negat 08/31/2017 [facility] Esterase Urine herrera 9:19 AM [facility] Source Midstream 08/31/2017 [facility] Urine 8:55 AM [facility] WBC Urine 1 0 - 2 08/31/2017 [facility] /HPF 9:19 AM [facility] RBC Urine 3 (H) 0 - 2 08/31/2017 [facility] /HPF 9:19 AM [facility] Bacteria Urine Few (A) NEG^Negat 08/31/2017 [facility] herrera /HPF 9:19 AM [facility] Squamous 2 (H) 0 - 1 08/31/2017 [facility] Epithelial /HPF /HPF 9:19 AM [facility] Mucous Urine Present (A) NEG^Negat 08/31/2017 [place] herrera /LPF 9:19 AM [facility] Specimen (Source) Anatomical Collection Method Collection Time Re ceived Time Location / / Volume Laterality Examination of URINE SPECIMEN 08/31/2017 8:40 08/31/20 17 8:54 midstream urine OBTAINED BY CLEAN AM MACHINE GRAINER AM [facility] specimen CATCH PROCEDURE / (procedure) Unknown Juanjo Melendrez MD LAB - URINE ORDERABLES Performing Organization Address City/State/ZIP Code Phon e Number [place] [address] [place] [address] [facility] [address] [phone] Basic metabolic panel (BMP) (08/31/2017 8:10 AM MACHINE GRAINER) athologist Signature Sodium 137 133 - 144 08/31/2017 [place] mmol/L 8:43 AM [facility] Potassium 4.0 3.4 - 5.3 08/31/2017 [place] mmol/L 8:43 AM [facility] Chloride 105 94 - 109 08/31/2017 [facility] mmol/L 8:43 AM [facility] Carbon Dioxide 27 20 - 32 08/31/2017 [place] mmol/L 8:43 AM [facility] Anion Gap 5 3 - 14 08/31/2017 [place] mmol/L 8:43 AM [facility] Glucose 97 70 - 99 08/31/2017 [place] mg/dL 8:43 AM [facility] Urea Nitrogen 10 7 - 30 08/31/2017 [place] mg/dL 8:43 AM [facility] Creatinine 0.68 0.52 - 08/31/2017 [facility] 1.04 mg/dL 8:43 AM [facility] GFR Estimate >90 >60 08/31/2017 [facility] mL/min/1.7 8:[address] Comment: Non GFR Calc GFR Estimate If >90 >60 mL/min/1.7m2 08/31/2017 8:43 A [facility] Comment: GFR Calc Calcium 9.0 8.5 - 10.1 mg/dL 08/31/2017 8:43 AM [facility] Specimen Anatomical Collection Method Collection Time Receive d Time (Source) Location / / Volume Laterality Blood specimen 08/31/2017 8:10 AM 017 8:19 (specimen) MACHINE GRAINER AM MACHINE GRAINER Juanjo Melendrez MD LAB - BLOOD ORDERABLES Performing Organization Address City/State/ZIP Code Phon e Number [place] [address] [place], [place] [address] [phone] [facility] [address] [place], [place] [address] [place] [address] CBC (platelets, no diff) (08/31/2017 8:10 AM MACHINE GRAINER) athologist Signature WBC 8.5 4.0 - 11.0 08/31/2017 [facility] 10e9/L 8:24 AM [facility] RBC Count 4.69 3.8 - 5.2 08/31/2017 [facility] 10e12/L 8:24 AM [facility] Hemoglobin 15.1 11.7 - 08/31/2017 [facility] 15.7 g/dL 8:24 AM [facility] Hematocrit 45.3 35.0 - 08/31/2017 [facility] 47.0 % 8:24 AM [facility] MCV 97 78 - 100 08/31/2017 [facility] fl 8:24 AM [facility] MCH 32.2 26.5 - 08/31/2017 [facility] 33.0 pg 8:24 AM [facility] MCHC 33.3 31.5 - 08/31/2017 [facility] 36.5 g/dL 8:24 AM [facility] RDW 12.6 10.0 - 08/31/2017 [facility] 15.0 % 8:24 AM [facility] Platelet Count 290 150 - 450 08/31/2017 [facility] 10e9/L 8:24 AM [facility] Specimen Anatomical Collection Method Collection Time Receive d Time (Source) Location / / Volume Laterality Blood specimen 08/31/2017 8:10 AM 017 8:19 (specimen) MACHINE GRAINER AM MACHINE GRAINER Juanjo Melendrez MD LAB - BLOOD ORDERABLES Performing Organization Address City/State/ZIP [facility] Phon e Number M [facility] [address] [place], [place] [address] [facility] [address] [place], [place] [address] [place] [address] documented in this encounter Visit Diagnoses Diagnosis Abdominal pain, generalized Lightheadedness Dizziness and giddiness Nausea Nausea alone documented in this encounter Administered Medications Inactive Administered Medications - up to 3 most recent administrations Medication Order MAR Action Action Date Dose Rate Site HYDROcodone-acetaminophen Given 08/31/2017 11:32 AM MACHINE GRAINER 1 tablet (NORCO) 5-325 MG per tablet 1 tablet 1 tablet, Oral, ONCE, On Wed08/31/17 at 1126, For 1 dose, Maximum acetaminophen dose from all sources= 75 mg/kg/day not to exceed 4 grams HYDROmorphone (PF) (DILAUDID) injection 0.5 Given 08/31/2017 9:44 AM MACHINE GRAINER 0.5 mg mg 0.5 mg, Intravenous, ONCE, On Wed08/31/17 at 0927, For 1 dose, Give IV Push undiluted up to 4 mg. Each 2mg over 2-5 minutes. lidocaine (viscous) (XYLOCAINE) 2 % 15 mL, Given 08/31/2017 9:43 AM MACHINE GRAINER 30 mLs alum & mag hydroxide-simethicone (MYLANTA ES/MAALOX ES) 15 mL GI Cocktail 30 mL, Oral, ONCE, On Wed08/31/17 at 0927, For 1 dose ondansetron (ZOFRAN) injection 4 mg Given 08/31/2017 8:17 AM MACHINE GRAINER 4 mg 4 mg, Intravenous, ONCE, Administer over 2-5 Minutes, On Wed08/31/17 at 0805, For 1 dose, Irritant. For ordered doses up to 4 mg, give IV Push undiluted over 2-5 minutes. documented in this encounter Active and Recently Administered Medications Times are shown in MACHINE GRAINER. Scheduled Medication Order 08/29/2017 08/30/2017 08/31/2017 HYDROcodone-acetaminophen (NORCO) 5-325 MG per tablet 1 tablet ( COMPLETED) 1132 (Given - Provider: Garfield Sam RN) 1 tablet, Oral, ONCE, Wed08/31/17 at 11 26, For 1 dose, Maximum acetaminophen dose from all sources= 75 mg/kg/day not to exceed 4 grams HYDROmorphone (PF) (DILAUDID) injection 0.5 mg (COMPLETED) 943 (Given - Provider: Garfield Sam RN) 0.5 mg, Intravenous, ONCE, 1 dose, Tue 1 10/31/16 at 0927, Give IV Push undiluted up to 4 mg. Each 2mg over 2-5 minutes. lidocaine (viscous) (XYLOCAINE) 2 % 15 m L, alum & mag hydroxide-simethicone (MYLANTA ES/MAALOX ES) 15 mL GI Cocktail (COMPLETED) 942 (Given - Provider: Garfield Sam, RN) 30 mL, Oral, ONCE, 08/31/17 at 0927, For 1 dose ondansetron (ZOFRAN) injection 4 mg (COMPLETED) 816 (Given - Provider: Garfield Sam, RN) 4 mg, Intravenous, ONCE, Administer over 2-5 Minutes, 08/31/17 at 0805, For 1 dose, Irritant. For ordered doses up to 4 mg, give IV Push undiluted over 2-5 minutes. documented in this encounter Additional Health Concerns Assessment Noted Time PHQ-9 Depression Total Score: 13 06/29/2017 2:50 PM CD T documented as of this encounter Care Teams Antique Clock Repairer Relationship Specialty Start Date End Date Viri Gallardo APRN CNP PCP - General Nurse Practitioner 06/29/17 04/14/[address] [facility] [place] [id number] documented as of this encounter
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
--- OUTSIDE RECORDS SUMMARY | 2022-09-05 18:57 | XMS_ITS | Encounter Summary ---
:1995 Author Organization [place] Address [address] [place] [address] Care Team Providers Name Role Phone Viri Gallardo APRN, CNP Primary Care Provider [phone] Viri Gallardo APRN WRAPPER SORTER Unavailable [phone] Ailyn Medina RN Unavailable Unavailable Viri Gallardo APRN, CNP Unavailable [phone] Encounter Details Date Type Department Care Team Description 09/06/2017 Result Follow [facility] Viri Gallardo Dx: Davey icolaou smear Up [facility] Jesu Nicole APRN of cervix with low grade [address] CNP squamous intraepithelial [address]ENTRAL lesion (LGSIL) [address] [facility] [address] [place], [place] [phone] Social History Tobacco Use Types Packs/Day [...] documented as of this encounter Progress Notes Virginia Francois RN - 09/06/2017 1:30 PM CST 08/26/17 LSIL, +HR HPV, not 16/18, 22 yr old. Plan 1 yr Dx pap cytology only. 09/08/17 Result letter printed and sent at request of RN. (cox monett) 08/13/18 Pap reminder letter sent (rl) 09/02/18 Pap Follow up reminder call placed (rl) 09/16/18 NIL pap cyto, 23 yr old. Plan 1 yr Dx pap cytology, due by 09/16/19. 09/23/18 Result letter sent at request of RN. (cox monett) 07/21/19 NIL pap, Plan pap in 3 years. ([facility]) documented in this encounter Plan of Treatment Not on filedocumented as of this encounter Visit Diagnoses Diagnosis Papanicolaou smear of cervix with low gr robert squamous intraepithelial lesion (LGSIL) documented in this encounter Additional Health Concerns Assessment Noted Time PHQ-9 Depression Total Score: 13 06/29/2017 2:50 PM CD T documented as of this encounter Care Teams Operator Helper Relationship Specialty Start Date End Date Viri Gallardo PCP - General Nurse Practitioner 06/29/17 04/14/20 DORIAN Nicole WRAPPER SORTER [address] [facility] [place] [address] Viri Gallardo PCP - Assigned PCP 09/12/17 12/13/18 DORIAN Nicole WRAPPER SORTER [address] [facility] [place] [address] Ailyn Medina, RN Clinic Production Sound Mixer Primary Care - CC 07/08/18 07/08/18 Viri Gallardo Assigned PCP 09/12/17 09/16/19 DORIAN Nicole WRAPPER SORTER [address] [facility] [place] [address] documented as of this encounter
--- OUTSIDE RECORDS SUMMARY | 2022-09-05 18:57 | XMS_ITS | Encounter Summary ---
:1995 Author Organization [place] Address [address] [place] [address] Care Team Providers Name Role Phone Viri Gallardo APRN, CNP Primary Care Provider [phone] Viri Gallardo APRN ADMISSION DISCHARGE RN Unavailable [phone] Viri Gallardo APRN ADMISSION DISCHARGE RN Unavailable [phone] Reason for Visit Reason Comments Dysuria Encounter Details Date Type Department Care Team Description 02/22/2018 Emergency [facility] David Jurado, Acute cystitis with [facility] Emergency Dep t hematuria [address] [facility] [place] [phone] [address] [phone] [address] [place], [place] [address] (Wo rk) Social History Tobacco Use Types [...] Sign Reading Time Taken Comments Blood Pressure 117/77 02/22/2018 2:05 PM CDT Pulse - - Temperature 36.8 ??C (98.2 ??F) 02/22/2018 12:56 PM CDT Respiratory Rate 16 02/22/2018 12:56 PM CDT Oxygen Saturation 100% 02/22/2018 2:06 PM CDT Inhaled Oxygen Concentration - - Weight - - Height - - Body Mass Index - - documented in this encounter Discharge Instructions Discharge InstructionsDavid Jurado MD - 02/22/2018 1:56 PM CDT Images from the original note were not included. Discharge Instructions Urinary Tract Infection You or [...] to the Emergency Department if: ??? You or your child have severe back pain. ??? You or your child are vomiting (throwing up) so that you cannot take your medicine. ??? You or your child have a new fever (had not previously had a fever) over 101??F. ??? You or your child have confusion or are very weak, or feel very ill. ??? Your child seems much more ill, will not wake up, will not respond right, or is crying for a long time and will not calm down. ??? You or your child are showing signs of dehydration. These signs may include decreased urination (pee), dry mouth/gums/tongue, or decreased activity. Follow-up with your provider: ??? Children under 24 months need to be seen by their regular provider within one week after a diagnosis of a UTI. It may be necessary to do some more tests to look at the child???s kidney or bladder. ??? You should begin to feel better within 24 - 48 hours of starting your antibiotic; follow-up withyour regular clinic/doctor/provider if this is not the case. Treatment: ??? You will be treated with an antibiotic to kill the bacteria. We have to make an educated guess, based on what we know about common bacteria and antibiotics, as to which antibiotic will work for your infection. We will be correct most times but there will be some cases where the antibiotic chosen is not correct (see urine cultures below). ??? Take a pain medication such as acetaminophen (Tylenol??) or ibuprofen (Advil??, Motrin??, Nuprin??). ??? Phenazopyridine (Pyridium??, Uristat??) is a prescription medication that numbs the bladder to reduce the burning pain of some UTIs. The same medication is available in a non-prescription version (Azo-Standard??, Urodol??). This medication will change the color of the urine and tears (usually blueor orange). If you wear contacts, do not wear them while taking this medication as they may be stained by the medication. Urine Cultures: ??? If indicated, a urine culture may have [...] your infection, you will not be contacted. We often recommend follow-up with your regular physician/provider on the culture results regardlessof this process. Antibiotic Warning: ??? If you have been placed on antibiotics - watch for signs of allergic reaction. These include rash, lip swelling, difficulty breathing, wheezing, and dizziness. If you develop any of these symptoms,stop the antibiotic immediately and go to an [...] Sig Dispensed Refills Start Date End Date cefdinir (OMNICEF) 300 Take 1 capsule (300 14 capsule 0 02/0803/01/2018 MG capsule mg) by mouth 2 times daily for 7 days Probiotic Product Take 1 capful by 30 capsule 1 02/22/2018 0 03/08/2018 (NATRUL PROBIOTIC) CAPS mouth 2 times daily for 14 days levonorgestrel (MIRENA) 1 each by 0 0 04/07/2018 20 MCG/24HR IUD Intrauterine route once SUMAtriptan (IMITREX) Take 1 tablet (100 18 tablet 3 201604/07/2018 100 MG mg) by mouth at onset tabletIndications: of headache for Intractable chronic migraine May repeat migraine without aura in 2 hours. Max 2 and without status tablets/24 hours. migrainosus triamcinolone (KENALOG) Apply topically 3 0 07/14/2018 0.1 % lotion times daily documented as of this encounter ED Notes Margaret Sumner RN - 02/22/2018 2:09 PM CDT Pt discharged home. Verbal and written instructions given and explained. All questions answered. Margaret Sumner RN - 02/22/2018 1:32 PM CDT Given 2 large glasses of water. Lucila Contreras RN - 02/22/2018 12:55 PM CDT Yesterday noted blood in her urine. Also abdominal pain; worse with voiding. Also frequently urinating. History of UTI but these symptoms seem to be worse. David Jurado MD - 02/22/2018 12:52 PM CDT History Chief Complaint: Dysuria HPI Joel Amos is a 22 year old female with a history of frequent UTI's who presents with Dysuria.Patient reports experiencing some urgency over the last several days. When she then noted difficultyurinating as well as increasing hematuria since that time, she decided come to the ED for evaluation. Upon arrival here she endorses lower abdominal pain as well as continued dysuria, and a pulsing sensation in her bladder. She denies any fever, back pain, vomiting, or flank pain. Of note, while the patient does have a history of frequent UTI, she states that these current symptoms are slightly different. She is not experiencing any. Allergies: No Known Drug Allergies Medications: Mirena/ IUD Imitrex Past Medical History: HPV positive Anxiety Bipolar disorder Depression Marijuana dependence Migraines Pap smear of cervix with low grade squamous intraepithelial lesion (LGSIL) Past Surgical History: The patient does not have any pertinent past surgical history. Family History: Hypertension Social History: The patient was accompanied to the ED by friend. Smoking Status: Yes Smokeless Tobacco: No Alcohol Use: No Marital Status: Single Review of Systems Genitourinary: Positive for dysuria, hematuria and pelvic pain. Physical Exam Vitals: Patient Vitals for the past 24 hrs: BP Temp Temp src Heart Rate Resp SpO2 02/22/18 1406 - - - - - 100 % 02/22/18 1405 117/77 - - - - - 02/22/18 1256 (!) 128/92 98.2 ??F (36.8 ??C) Temporal 91 16 99 % Physical Exam General: Patient is alert and interactive when I enter the room Head: The scalp, face, and head appear normal Eyes: The pupils are equal, round, and reactive to light Conjunctivae and sclerae are normal ENT: External acoustic canals are normal The oropharynx is normal without erythema. Uvula is in the midline Neck: Normal range of motion CV: Regular rate. S1/S2. No murmurs. Resp: Lungs are clear without wheezes or rales. No distress GI: Abdomen is soft, no rigidity, guarding, or rebound No distension. Tenderness to palpation suprapubic area. MS: Normal tone. Joints grossly normal without effusions. No asymmetric leg swelling, calf or thigh tenderness. Normal motor assessment of all extremities. Skin: No rash or lesions noted. Normal capillary refill noted Neuro: Speech is normal and fluent. Face is symmetric. Moving all extremities well. Psych: Awake. Alert. Normal affect. Appropriate interactions. Lymph: No anterior cervical lymphadenopathy noted Emergency Department Course Laboratory: Laboratory findings were communicated with the patient who voiced understanding of the findings. UA: Specific gravity: 1.002 (L), Blood: Large (A), Protein albumin: 100 (A), Leukocyte esterase: Large (A), WBC: 69 (H), Bacteria: Moderate (A) HCG Qual: Negative Urine culture: Pending Emergency Department Course: Nursing notes and vitals reviewed. 1318 I had my initial encounter with the patient. I performed an exam of the patient as documented above. The patient provided a urine sample here in the emergency department. This was sent for laboratory testing, findings above. 1356 I discussed the treatment plan with the patient. They expressed understanding of this plan and consented to discharge. They will be discharged home with instructions for care and follow up. In addition, the patient will return to the emergency department with any new or worsening symptoms. All que stions were answered. Impression & Plan Medical Decision Making: Joel mAos is a 22 year old female who presents for evaluation of ongoing dysuria. This clinically is consistent with a urinary tract infection. Urinalysis confirms the infection. There has been no fever, back/flank pain or significant abdominal pain. There is no clinical evidence of pyelonephritis, appendicitis, colitis, diverticulitis or any intraabdominal catastrophe. The patient will be started on antibiotics for the infection. Return if increasing pain, vomiting, fever, or inability to tolerate the oral antibiotic. Follow up with primary physician is indicated if not improving in 2-3 days. Diagnosis: ICD-10-CM 1. Acute cystitis with hematuria N30.01 Urine Culture Aerobic Bacterial Disposition: Discharge Discharge Medications: Discharge Medication List as of 02/22/2018 2:03 PM START taking these medications Details cefdinir (OMNICEF) 300 MG capsule Take 1 capsule (300 mg) by mouth 2 times daily for 7 days, Disp-14capsule, R-0, Local Print Probiotic Product (NATRUL PROBIOTIC) CAPS Take 1 capful by mouth 2 times daily for 14 days, Disp-30 capsule, R-1, Local Print Scribe Disclosure: I, Win Crabtree, am serving as a scribe at 1:18 PM on 02/22/2018 to document services personally performed by David Jurado MD, based on my observations and the provider's statements to me. 02/22/2018 [facility] EMERGENCY DEPARTMENT David Jurado MD 02/22/18 1801 documented in this encounter Plan of Treatment Not on filedocumented as of this encounter Procedures Procedure Name Priority Date/Time Associated Comments Diagnosis HCG QUALITATIVE URINE STAT 02/22/2018 1:12 PM Results for this CDT procedure are i n the results section. ROUTINE UA WITH STAT 02/22/2018 1:12 PM Result s for this MICROSCOPIC CDT procedure are i n the results section. URINE CULTURE Routine 02/22/2018 1:12 PM Acute cystitis with R esults for this CDT hematuria procedure are i n the results section. documented in this encounter Results Urine Culture Aerobic Bacterial (02/22/2018 1:12 PM CDT) Component Value Ref Test Analysis Performed At [facility] gist Range Method Time Signature Specimen Midstream Urine INFECTIOUS Description DISEASE DIAGNOSTIC LABORATORY Special Specimen received 02/22/2018 [facility] in preservative 9:02 PM CDT [facility] Culture Micro <10,000 colonies/mL 02/23/2018 INFEC TIOUS mixed urogenital jeffery 9:01 PM CDT DISEA SE DIAGNOSTIC LABORATORY Culture Micro Susceptibility 02/23/2018 INFECTIOUS testing not 9:01 PM CDT DISEASE routinely done DIAGNOSTIC LABORATORY Specimen (Source) Anatomical Collection Method Collection Time Re ceived Time Location / / Volume Laterality Examination of 02/22/2018 1:12 02/22/2018 2:14 midstream urine PM CDT PM CDT specimen (procedure) David Jurado MD LAB - MICRO GENERAL ORDERABL ES Performing Organization Address City/[facility]/ZIP Code Phon e Number INFECTIOUS DISEASES [address] [place] [address] DIAGNOSTIC LABORATORY, [facility] INFECTIOUS DISEASE [address] [place] [address], [facility] DIAGNOSTIC LABORATORY [address] [address], [facility] HCG qualitative urine (UPT) (02/22/2018 1:12 PM CDT) athologist Signature HCG Qual Urine Negative NEG^Negati 02/22/2018 LUANA ve 1:52 PM [facility] Comment: This test is for screening purposes. ??R esults should be interpreted along with the clinical picture. ??Confirmation te sting is available if warranted by ordering [id number], HCG Quantitative Pregna ncy. Specimen Anatomical Collection Method Collection Time Receive d Time (Source) Location / / Volume Laterality Urine specimen URINE SPECIMEN 02/22/2018 1:12 PM 02/22 1:31 (specimen) OBTAINED BY CLEAN CDT PM CDT CATCH PROCEDURE / Unknown David Jurado MD LAB - URINE ORDERABLES Performing Organization Address City/[facility]/ZIP [facility] Phon e Number [facility] [address] [phone] [facility] [address] [phone] (ABNORMAL) UA with Microscopic (02/22/2018 1:12 PM CDT) Patholo gist Method Time Signature Color Urine Lidia 02/22/2018 LUANA 1:51 PM [facility] Appearance Urine Clear 02/22/2018 LUANA 1:51 PM [facility] Glucose Urine Negative NEG^Negat 02/22/2018 LUANA herrera mg/dL 1:51 PM [facility] Bilirubin Urine Negative NEG^Negat 02/22/2018 LUANA herrera 1:51 PM [facility] Ketones Urine Negative NEG^Negat 02/22/2018 LUANA herrera mg/dL 1:51 PM [facility] Specific Santa Claus 1.002 (L) 1.003 - 02/22/2018 LUA[place] Urine 1.035 1:51 PM [facility] Blood Urine Large (A) NEG^Negat 02/22/2018 LUANA herrera 1:51 PM [facility] pH Urine 7.0 5.0 - 7.0 02/22/2018 [place] pH 1:51 PM [facility] Protein Albumin 100 (A) NEG^Negat 02/22/2018 [place] Urine herrera mg/dL 1:51 PM [facility] Urobilinogen 0.0 0.0 - 2.0 02/22/2018 [place] mg/dL mg/dL 1:51 PM [facility] Nitrite Urine Negative NEG^Negat 02/22/2018 LUA[place] herrera 1:51 PM [facility] Leukocyte Large (A) NEG^Negat 02/22/2018 [place] Esterase Urine herrera 1:51 PM [facility] Source Midstream 02/22/2018 [place] Urine 1:32 PM [facility] WBC Urine 69 (H) 0 - 5 02/22/2018 [facility] /HPF 1:51 PM [facility] RBC Urine 2 0 - 2 02/22/2018 [facility] /HPF 1:51 PM [facility] Bacteria Urine Moderate (A) NEG^Negat 02/22/2018 [place] herrera /HPF 1:51 PM [facility] Squamous 1 0 - 1 02/22/2018 [place] Epithelial /HPF /HPF 1:51 PM [employer] Transitional Epi 1 0 - 1 02/22/2018 [facility] /HPF 1:51 PM [facility] Specimen (Source) Anatomical Collection Method Collection Time Re ceived Time Location / / Volume Laterality Examination of URINE SPECIMEN 02/22/2018 1:12 02/23/20 18 1:31 midstream urine OBTAINED BY CLEAN PM [facility] specimen CATCH PROCEDURE / (procedure) Unknown David Jurado MD LAB - URINE ORDERABLES Performing Organization Address City/State/ZIP Code Phon e Number [facility] [address] [place], [place] [address] [facility] [address] [phone] documented in this encounter Visit Diagnoses Diagnosis Acute cystitis with hematuria Acute cystitis documented in this encounter Additional Health Concerns Assessment Noted Time PHQ-9 Depression Total Score: 13 06/29/2017 2:50 PM CD T documented as of this encounter Care Teams Mini Bar Attendant Relationship Specialty Start Date End Date Viri Gallardo, PCP - General Nurse Practitioner 06/29/17 04/14/20 DRILL PUNCH OPERATOR ADMISSION DISCHARGE RN [address] [facility] [place] [address] Viri Gallardo, PCP - Assigned PCP 09/12/17 12/13/18 DRILL PUNCH OPERATOR ADMISSION DISCHARGE RN [address] [facility] [place] [address] Viri Gallardo, Assigned PCP 09/12/1709/16 DRILL PUNCH OPERATOR ADMISSION DISCHARGE RN [address] [facility] [place] [address] documented as of this encounter
--- OUTSIDE RECORDS SUMMARY | 2022-09-05 18:57 | XMS_ITS | Encounter Summary ---
:1995 Author Organization [place] Address [address] [place] [address] Care Team Providers Name Role Phone Viri Gallardo APRN, CNP Primary Care Provider [phone] Viri Gallardo APRN SUPERVISOR HOSPITALITY HOUSE Unavailable [phone] Viri Gallardo APRN SUPERVISOR HOSPITALITY HOUSE Unavailable [phone] Reason for Visit Reason Onset Date Comments Referral 09/16/2017 Patient called in fo information on referrals from ED recommendations Encounter Details Date Type Department Care Team Description 09/16/2017 Telephone [facility] Nurse Lidia Mullen, Referral (Patient Advisors RN called in for [phone] [place] [address] referrals from ED [phone] recommendations ) Social History Tobacco Use Types Packs/Day Years [...] this encounter Miscellaneous Notes Telephone Encounter - Cassie Barrera - 09/17/2017 3:49 PM CST Patient has appointment scheduled with Viri Gallardo on 09/20/17. Routing message to PCP. CRUSHER OPERATOR Telephone Encounter - Lidia Mullen RN - 09/16/2017 6:30 PM CST Patient called in to [facility]NA stating she has had some ongoing abdominal pain issues and was recently seen in the emergency room and was told to follow up with several different providers and she does not have her discharge paperwork and wondering if triage nurse could confirm what the referral recommendations were and how to facilitate those referrals to get appointments set up. Reviewed ER notes and it appears she should follow up up with GI, neuro, and close PCP follow, recommended she scheduled OLIVIA with PCP as they can assist with facilitating these referrals for her. She agreed to transfer to scheduling for an appointment at [place] tomorrow. No triage needed at this time, and will route message tocare team as well. Lidia Mullen RN, BSN [facility] Nurse [facility]visors CRUSHER OPERATOR documented in this encounter Plan of Treatment Not on filedocumented as of this encounter Visit Diagnoses Not on filedocumented in this encounter Additional Health Concerns Assessment Noted Time PHQ-9 Depression Total Score: 13 06/29/2017 2:50 PM CD T documented as of this encounter Care Teams Psychologist Personnel Relationship Specialty Start Date End Date Viri Gallardo, PCP - General Nurse Practitioner 06/29/17 04/14/20 [phone] [facility] [place] [address] Viri Gallardo, PCP - Assigned PCP 09/12/17 12/13/18 MUSIC VIDEO PRODUCER SUPERVISOR HOSPITALITY HOUSE [address] [facility] [place] [address] Viri Gallardo, Assigned PCP 09/12/1709/16 MUSIC VIDEO PRODUCER SUPERVISOR HOSPITALITY HOUSE [address] [facility] [place] [address] documented as of this encounter
--- OUTSIDE RECORDS SUMMARY | 2022-09-05 18:57 | XMS_ITS | Encounter Summary ---
:1995 Author Organization [place] Address [address] [place] [address] Care Team Providers Name Role Phone Viri Gallardo APRN, CNP Primary Care Provider [phone] Reason for Visit Reason Onset Date Comments Panel Management 08/13/2017 pap Encounter Details Date Type Department Care Team Description 08/13/2017 [facility] [place] Nicole APRN FINISH CLEANER [address] [facility] [address] [place] [address] [place] [phone] Social History Tobacco Use Types Packs/Day Years [...] Telephone Encounter - Aneta Varghese MA - 08/26/2017 11:33 AM CST Patient has appointment for physical 08/26/17 with Viri Gallardo. Aneta Varghese CMA NING LATHE OPERATOR HYDRAULIC Telephone Encounter - Aneta Varghese MA - 08/19/2017 9:34 AM CST Called and left VM for patient to contact clinic. Patient needs pap & physical. Aneta Varghese CMA NING LATHE OPERATOR HYDRAULIC Telephone Encounter - Aneta Varghese MA - 08/13/2017 2:07 PM CDT Panel Management Review Patient has the following on her problem list: Depression / Dysthymia review Measure: Needs PHQ-9 score of 4 or less during index window. Administer PHQ-9 and if score is 5 or more, send encounter to provider for next steps. 5 - 7 month window range: PHQ-9 SCORE 07/28/2016 03/02/2017 06/29/2017 Total Score 5 17 13 If PHQ-9 recheck is 5 or more, route to provider for next steps. Patient is due for: None Composite cancer screening Chart review shows that this patient is due/due soon for the following Pap Smear Summary: Patient is due/failing the following: PAP and PHYSICAL Action needed: Patient needs office visit for pap & physical. Type of outreach: Sent letter. Questions for provider review: None Aneta Varghese CMA Chart routed to Care Team . documented in this encounter Plan of Treatment Not on filedocumented as of this encounter Visit Diagnoses Not on filedocumented in this encounter Additional Health Concerns Assessment Noted Time PHQ-9 Depression Total Score: 13 06/29/2017 2:50 PM CD T documented as of this encounter Care Teams Correctional Therapy Director Relationship Specialty Start Date End Date Viri Gallardo APRN FINISH CLEANER PCP - General Nurse Practitioner 06/29/17 04/14/20 [address] [facility] [address] [place], [place] [address] documented as of this encounter
--- OUTSIDE RECORDS SUMMARY | 2022-09-05 18:57 | XMS_ITS | Encounter Summary ---
:1995 Author Organization [place] Address [address] [place] [address] Care Team Providers Name Role Phone Viri Gallardo APRN, CNP Primary Care Provider [phone] Viri Gallardo APRN SENIOR NET SOFTWARE DEVELOPER Unavailable [phone] Viri Gallardo APRN SENIOR NET SOFTWARE DEVELOPER Unavailable [phone] Reason for Visit Reason Comments Erroneous encounter-disregard Encounter Details Date Type Department Care Team Description 02/22/2018 Office Visit [facility] ForeignMindi hennessy [facility] Jesu Potter PA-C ENCOUNTER--DISREGARD [address] [facility] (Prim jeff Dx) [facility] [address] [place] [address] [place] [address] Social History Tobacco Use Types Packs/Day [...] documented as of this encounter Progress Notes Adalid Kaur, STITCHER TAPE CONTROLLED MACHINE - 02/22/2018 2:30 PM CDT .. documented in this encounter Plan of Treatment Not on filedocumented as of this encounter Visit Diagnoses Diagnosis ERRONEOUS ENCOUNTER--DISREGARD - Primary documented in this encounter Additional Health Concerns Assessment Noted Time PHQ-9 Depression Total Score: 13 06/29/2017 2:50 PM CD T documented as of this encounter Care Teams It Compliance Analyst Relationship Specialty Start Date End Date Viri Gallardo, PCP - General Nurse Practitioner 06/29/17 04/14/20 MINING HELPER SENIOR NET SOFTWARE DEVELOPER [address] [facility] [place] [address] Viri Gallardo, PCP - Assigned PCP 09/12/17 12/13/18 MINING HELPER SENIOR NET SOFTWARE DEVELOPER [address] [facility] [place] [address] Viri Gallardo, Assigned PCP 09/12/1709/16 MINING HELPER SENIOR NET SOFTWARE DEVELOPER [address] [facility] [place] [address] documented as of this encounter
--- OUTSIDE RECORDS SUMMARY | 2022-09-05 18:57 | XMS_ITS | Encounter Summary ---
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 - Closed Specialty Diagnoses / Procedures Referred By Contact Refer red To Contact Diagnoses IUD (intrauterine device) in place Viri Gallardo M [facility] [place] [address] [place] [address] [place] [address] [place] [address] [address] [place] [phone] Phone: Fax: Referral ID Status Reason Start Date Expiration Date Visits Requ ested Visits Authorized [id number] Closed 09/24/2017 09/24/2018 1 1 TRANSMISSION MECHANIC Reason for Visit Reason Comments ER F/U Encounter Details Date Type Department Care Team Description 09/24/2017 Office Visit [facility] Viri Gallardo Dizziness (Primary Dx); Clinic [place] Nicole APRN Abdominal pain, generalized; [address] [facility] IUD (intrauterine device) in place; [address] Healthcare maintenance [address] [facility] [place] [address] [place] [address] Social History Tobacco Use Types Packs/Day Years [...] Reading Time Taken Comments Blood Pressure 102/64 09/24/2017 2:04 PM AUTO TRANSMISSION MECHANIC Pulse 76 09/24/2017 2:04 PM AUTO TRANSMISSION MECHANIC Temperature 36.5 ??C (97.7 ??F) 09/24/2017 2:04 PM AUTO TRANSMISSION MECHANIC Respiratory Rate - - Oxygen Saturation 99% 09/24/2017 2:04 PM AUTO TRANSMISSION MECHANIC Inhaled Oxygen Concentration - - Weight 51.4 kg (113 lb 4.8 oz) 09/24/2017 2:04 PM AUTO TRANSMISSION MECHANIC Height 163.2 cm (5' 4.25) 09/24/2017 2:04 PM AUTO TRANSMISSION MECHANIC Body Mass Index 19.3 09/24/2017 2:04 PM AUTO TRANSMISSION MECHANIC documented in this encounter Patient Instructions Patient InstructionsMolitorViri APRN CNP - 09/24/2017 2:00 PM AUTO TRANSMISSION MECHANIC -Do the cleanse -Schedule follow up with GI. -Psychiatry -Therapist -See OB -Start folic acid daily TRANSMISSION MECHANIC documented in this encounter Progress Notes Viri Gallardo APRN CNP - 09/24/2017 2:00 PM CST SUBJECTIVE: Joel Amos is a 22 year old female who presents to clinic today for the following health issues: ED/UC Followup: Facility: [facility] ED Date of visit: 09/15/17 Reason for visit: abdominal pain, headache, nausea, dizziness Current Status: Patient states stomach pain is better because she has not been eating, still feelingfoggy - is affecting her work, intermittent dizziness continuing - having confusion with dizziness States she is out of imitrex: Patient presents with myriad vague complaints. Was seen 09/15 in the ED for abdominal pain and dizziness. The abdominal pain is something she had begun to be evaluated for here at [facility]. Abdominal pain: Reports 1 month of sharp generalized migrating abdominal pain, nausea, and vomiting for 1 month. Had been seen previuosly in the ED and had a normal abdominal XR (other than constipation) and pelvic US. CT in the ED was negative. Saw GI. Was given bentyl. They asked her to do a colon cleanse for constipation but did not do a colonoscopy or endoscopy. She has not done the colon cleanse yet or tried the Bentyl. She does have plans to follow up with GI In the ED reported having been dizzy with visual disturbance. Also has her usual headaches. Typically gets dizzy when she getting migraine but reports the dizziness has not temporally been correlated with a migraine recently. Vicky said she seemed confused and had been having short term memory loss. Her depression had been worsening for about 2 weks. Stopped using marijuana a few weeks ago as well. Brain MRI was normal. Patient thinks that, as she has gone up on the Lamictal, her neurologic sx (headaches, confusion, dizziness) have all gotten worse. Wants to speak with her neurologist about this. Denies use of other street drugs. ROS: const/neuro/gi/psych otherwise negative OBJECTIVE: BP 102/64 (Cuff Size: Adult Regular) Pulse 76 Temp 97.7 ??F (36.5 ??C) (Tympanic) Ht 5' 4.25 (1.632 m) Wt 113 lb 4.8 oz (51.4 kg) LMP 09/12/2017 SpO2 99% BMI 19.3 kg/m2 CONSTITUTIONAL: Alert, well-nourished, well-groomed, NAD RESP: Lungs CTA. No wheeze, rhonchi, rales. CV: HRRR S1 S2 No MRG. No peripheral edema NEURO: CN II-XII grossly intact. No nystagmus. Speech and mentation appropriate. Normal gait. Romberg negative. GI: Abdomen flat. BS x 4. No TTP. No HSM or masses. No CVAT ASSESSMENT/PLAN: (R42) Dizziness (primary encounter diagnosis) Comment: As above. Patient with vague neuro complaints, which she correlates with starting Lamictal.This is certainly a possibility. Her brain MRI is normal, which is reassuring. Plan: She agrees to schedule a f/u with psych, states they can usually get her in within a few business days. Plans to try to switch to something other than Lamictal. If still having sx could consider neuro workup. It doesn't seem that her migraines are causing these sx but this is also something to consider. Encouraged abstinence from any alcohol or street drugs. Encouraged regular sleep. (R10.84) Abdominal pain, generalized Comment: Ongoing, following with GI. Plan: Encouraged her to complete the colon cleanse and F/U with GI. (Z97.5) IUD (intrauterine device) in place Comment: Patient wanting to remove the IUD as she thinks it may be causing her abdominal pain. However, IUD is reportedly in the correct placement. Plan: LEGAL WORD PROCESSOR REFERRAL, folic acid (FOLVITE) 400 MCG tablet Recommended she keep the IUD in until GI workup is complete. I also recommend she not get until her mental health condition is more stable, which she says she will consider. Referred to OB for IUD removal. Also, recommended she start daily folic acid right away after IUD removal. Avoid right now as the iron content and B vitamins could worsen GI sx. (Z00.00) Healthcare maintenance Plan: Cholecalciferol (VITAMIN D) 2000 UNITS tablet NATALIE Erickson. TRANSMISSION MECHANIC documented in this encounter Nursing Notes Aneta Varghese MA - 09/24/2017 2:00 PM CST Chief Complaint Patient presents with ??? ER F/U Initial BP 102/64 (Cuff Size: Adult Regular) Pulse 76 Temp 97.7 ??F (36.5 ??C) (Tympanic) Ht 5' 4.25 (1.632 m) Wt 113 lb 4.8 oz (51.4 kg) LMP 09/12/2017 SpO2 99% BMI 19.3 kg/m2 Estimatedbody mass index is 19.3 kg/(m^2) as calculated from the following: Height as of this encounter: 5' 4.25 (1.632 m). Weight as of this encounter: 113 lb 4.8 oz (51.4 kg). Medication Reconciliation: nette Varghese CMA TRANSMISSION MECHANIC documented in this encounter Plan of Treatment Scheduled Referrals Name Type Priority Associated Diagnoses Order S chedule LEGAL WORD PROCESSOR REFERRAL Referral Routine IUD (intrauterine device) in Ordered: 09/24/2017 place documented as of this encounter Visit Diagnoses Diagnosis Dizziness - Primary Dizziness and giddiness Abdominal pain, generalized IUD (intrauterine device) in place Presence of intrauterine contraceptive d evice Healthcare maintenance Routine general medical examination at a health care facility documented in this encounter Additional Health Concerns Assessment Noted Time PHQ-9 Depression Total Score: 13 06/29/2017 2:50 PM CD T documented as of this encounter Care Teams Camp Dining Room Attendant Relationship Specialty Start Date End Date Viri Gallardo, PCP - General Nurse Practitioner 06/29/17 04/14/[address] [place] [address] Viri Gallardo, PCP - Assigned PCP 09/12/17 12/13/[address] [place] [address] Viri Gallardo, Assigned PCP 09/12/1709/[address] [place] [address] documented as of this encounter
--- OUTSIDE RECORDS SUMMARY | 2022-09-05 18:57 | XMS_ITS | Encounter Summary ---
:1995 Author Organization [place] Address [address] [place] [address] Care Team Providers Name Role Phone Viri Gallardo APRN, CNP Primary Care Provider [phone] Encounter Details Date Type Department Care Team Description 09/07/[address] [facility] Merry Oneil, Intractable Clinic Jesu GREEN vomiting with [address] [place] [address] [place] nausea, un specified [facility] vomiting type [address] [place] [address] [place] [phone] [address] (Work) [phone] Social History Tobacco Use Types Packs/Day Years [...] Priority Date/Time Associated Diagnosis Comme nts XR ABDOMEN 2 VIEWS Routine 09/07/2017 11:54 AM Intractable vom iting Results for this STAFF ANESTHETIST with nausea, procedure are i n unspecified vomiting the res ults type section. documented in this encounter Results XR Abdomen 2 Views (09/07/2017 11:54 AM STAFF ANESTHETIST) Anatomical Region Laterality Modality Abdomen/Pelvis Computed Radiography Specimen (Source) Anatomical Location Collection Method / Collectio n Time Received Time / Laterality Volume Impressions 09/07/2017 3:05 PM STAFF ANESTHETIST IMPRESSION: Normal bowel gas pattern. At least a moderate amount of fecal material throughout the ascending and transverse colon. Intrauterine device projects over the pe lvis. LUANN ADHIKARI MD Narrative 09/07/2017 3:05 PM STAFF ANESTHETIST ABDOMEN TWO VIEWS September 07, 2017 11:54 [...] the pe lvis. LUANN ADHIKARI MD Merry Oneil MD IMG DIAGNOSTIC IMAGING ORDER NAS documented in this encounter Visit Diagnoses Diagnosis Intractable vomiting with nausea, unspec ified vomiting type documented in this encounter Additional Health Concerns Assessment Noted Time PHQ-9 Depression Total Score: 13 06/29/2017 2:50 PM CD T documented as of this encounter Care Teams Scarfer Relationship Specialty Start Date End Date Viri Gallardo APRN CNP PCP - General Nurse Practitioner 06/29/17 04/14/20 [address] [facility] [place] [address] documented as of this encounter
--- OUTSIDE RECORDS SUMMARY | 2022-09-05 18:57 | XMS_ITS | Encounter Summary ---
:1995 Author Organization [place] Address [address] [place] [address] Care Team Providers Name Role Phone Viri Gallardo APRN, CNP Primary Care Provider [phone] No Ref-Primary, Physician Primary Care Provider [phone] Viri Gallardo APRN CARDBOARD INSERTER Unavailable [phone] Viri Gallardo APRN CARDBOARD INSERTER Unavailable [phone] Ailyn Medina RN Unavailable Unavailable SamiViri APRN CARDBOARD INSERTER Unavailable [phone] Chasity Wild PA-C Unavailable [phone] Sami, Viri Nicole APRN CARDBOARD INSERTER Unavailable [phone] Kenisha Garcia APRN CARDBOARD INSERTER Unavailable [phone] Reason for Visit Reason Onset Date Comments Refill Request 08/23/2017 nicotine (NICODERM C Q) 14 MG/24HR 24 hr patch Encounter Details Date Type Department Care Team Description 08/23/2017 Refill [facility] Viri Gallardo Refill Req uest (nicotine Clinic [place] Nicole APRN CNP (NICODERM CQ) 14 MG/24HR [address] [place] [address] [facility] 24 hr patch) [facility] [address] [place] [address] [place] [address] [phone] Social History Tobacco Use Types Packs/Day Years [...] Telephone Encounter - Sarah Blanchard RN - 08/25/2017 11:36 AM CST Nicoderm patch Patient has appointment tomorrow-Viri please discuss at office appointment tomorrow. Patch was only ordered for one month. Unsure of plan. Last Written Prescription Date: 07/27/17 Last Fill Quantity: 30, # refills: 0 Last Office Visit with [facility] or [facility] prescribing provider: 06/29/17 Per office appointment note- Encounter for smoking cessation counseling Comment: Smoking 0.75 PPD. Not mentally stable enough for Chantix. Plan: nicotine (NICODERM CQ) 14 MG/24HR 24 hr patch. Opted to dose down given weight. Encouraged the patch plus method. Counseling given. She has gum at home. Discussed r/b/se. Next 5 appointments (look out 90 days) Aug 26, 2017 3:40 PM DIRECTOR SMB SALES PHYSICAL with Viri Gallardo APRN CNP [facility] [address] [place] [address] [place] [phone] BP Readings from Last 3 Encounters: 07/22/17 110/70 06/29/17 104/64 06/22/17 102/60 Robyn Blanchard RN CTOR SMB SALES Telephone Encounter - Estrella Raymond - 08/23/2017 11:10 AM CST SHERRI 07/22/2017 CTOR SMB SALES documented in this encounter Plan of Treatment Not on filedocumented as of this encounter Visit Diagnoses Diagnosis Encounter for smoking cessation counseli ng Counseling on substance use and abuse documented in this encounter Additional Health Concerns Assessment Noted Time PHQ-9 Depression Total Score: 13 06/29/2017 2:50 PM CD T documented as of this encounter Care Teams Wrapper Hand Relationship Specialty Start Date End Date Viri Gallardo PCP - General Nurse Practitioner 06/29/17 04/14/20 DORIAN Nicole [facility] [address] [facility] [place] [address] No Ref-Primary, PCP - General 04/15/20 Physician Viri Gallardo PCP - Assigned PCP 09/12/17 12/13/18 DORIAN Nicole [address] [place] [address] Viri Gallardo Nurse Practitioner 04/15/20 DORIAN Nicole [facility] [address] [facility] [place] [address] Ailyn Medina, RN Clinic Label Machine Operator Primary Care - CC 07/08/18 07/08/18 Viri Gallardo Assigned PCP 09/12/17 09/16/19 DORIAN Nicole [facility] [address] [facility] [place] [address] Chasity Wild Assigned PCP 09/17/19 08/17/20 JAGDISH Romero [address] [place] [address] [place] [address] Viri Gallardo Assigned PCP 08/18/20 04/24/21 DORIAN Nicole CARDBOARD INSERTER [address] [facility] [place] [address] Kenisha Garcia Assigned PCP 04/25/21 DORIAN Sawyer CARDBOARD INSERTER [address] [facility] [place] [address] documented as of this encounter
--- OUTSIDE RECORDS SUMMARY | 2022-09-05 18:57 | XMS_ITS | Encounter Summary ---
:1995 Author Organization [place] Address [address] [place] [address] Care Team Providers Name Role Phone Suhail Bar APRN PETROLEUM REFINING FIRER Primary Care Provider [phone] Reason for Visit Reason Comments Physical Encounter Details Date Type Department Care Team Description 08/26/2017 Office Visit [facility] Suhail Bar [facility] car e maintenance (Primary Dx); Clinic Jesu Nicole APRN Abdominal pain, generalized; [address] PETROLEUM REFINING FIRER Loss of weight; [address] [facility] Rash; [address] Tobacco abuse [place] [id number] [place] [address] Social History Tobacco Use [...] Sign Reading Time Taken Comments Blood Pressure 122/68 08/26/2017 3:58 PM MULTIPLE SPINDLE SCREW MACHINE OPERATOR Pulse 86 08/26/2017 3:58 PM MULTIPLE SPINDLE SCREW MACHINE OPERATOR Temperature 36.4 ??C (97.6 ??F) 08/26/2017 3:58 PM MULTIPLE SPINDLE SCREW MACHINE OPERATOR Respiratory Rate - - Oxygen Saturation 99% 08/26/2017 3:58 PM MULTIPLE SPINDLE SCREW MACHINE OPERATOR Inhaled Oxygen Concentration - - Weight 50.3 kg (110 lb 14.4 oz) 08/26/2017 3:58 PM MULTIPLE SPINDLE SCREW MACHINE OPERATOR Height 163.2 cm (5' 4.25) 08/26/2017 3:58 PM MULTIPLE SPINDLE SCREW MACHINE OPERATOR Body Mass Index 18.89 08/26/2017 3:58 PM MULTIPLE SPINDLE SCREW MACHINE OPERATOR documented in this encounter Patient Instructions Patient InstructionsAneta Varghese MA - 08/26/2017 4:17 PM CST Images from the original note were not included. For eczema: -Steroid cream twice a day followed by elena. Preventive Health Recommendations Female Ages 18 to 25 Yearly exam: ??? See your health care provider every year in order to o Review health changes. o Discuss preventive care. o Review your medicines if your doctor has prescribed any. ??? You should be tested each year for STDs (sexually transmitted diseases). ??? After age 20, talk to your provider about how often you should have cholesterol testing. ??? Starting at age 21, get a Pap test every three years. If you have an abnormal result, your doctor may have you test more often. ??? If you are at risk for diabetes, you should have a diabetes test (fasting glucose). Shots: ??? Get a flu shot each year. ??? Get a tetanus shot every 10 years. ??? Consider getting the shot (vaccine) that prevents cervical cancer (Gardasil). Nutrition: ??? Eat at least 5 servings of fruits and vegetables each day. ??? Eat whole-grain bread, whole-wheat pasta and brown rice instead of white grains and rice. ??? Talk to your provider about Calcium and Vitamin D. Lifestyle ??? Exercise at least 150 minutes a week each week (30 minutes a day, 5 days a week). This will helpyou control your weight and prevent disease. ??? Limit alcohol to one drink per day. ??? No smoking. ??? Wear sunscreen to prevent skin cancer. See your dentist every six months for an exam and cleaning. Irritable Bowel Syndrome Irritable bowel syndrome (IBS) is a disorder of the intestines. It is not a disease, but a group of symptoms caused by changes in the way the intestines work.??It is fairly common, but the cause is notwell understood. Symptoms of IBS include: Abdominal pain, discomfort, and cramping Diarrhea Constipation or dry, hard stools Mucous stool Bloating Feeling of incomplete bowel movements It usually results in one of 3 patterns of symptoms: Chronic abdominal pain and constipation Recurring episodes of diarrhea, with or without pain Alternating diarrhea and constipation Home care The goal of treatment is to control and relieve your symptoms,??so you can lead a full and active life. There is no cure for??IBS.??But it can be managed. Diet Your diet did not cause your??IBS, but it can affect it. No one diet works for everyone.??Finding the best foods for you may take trial and error. Keep a food log to help find what foods made your symptoms worse. Below are some tips that may help you. Eat more slowly. Eat smaller amounts at a time, but more often. Remember, you can always eat more, but cannot eat less once you???ve eaten too much. High-fiber foods are complicated. While they may help relieve constipation, they can make??your bloating, cramping, gas, and diarrhea worse. Eat less sugar. Try cutting out dairy products. Sometimes this helps. Try cutting out foods that are high in fat and fatty meats. You can control bloating or passing excess gas. Be careful with ???gassy?? vegetables and fruits like beans, cabbage, broccoli, and cauliflower. Be careful with carbonated beverages and fruit juices. They can make??your bloating and diarrhea worse. Caffeine, alcohol, and stimulants can make symptoms worse. These include coffee, tea, sodas, energy drinks, and chocolate. Lifestyle Look for factors that seem to worsen your symptoms. These include stress and emotions.?? Although stress does not cause??IBS, it may trigger flare-ups.??Counseling can help you learn to handle stress. So can self-help measures like exercise, yoga, and meditation. Depression can occur along with IBS. Your healthcare provider may prescribe antidepressant medicine.This may??help with diarrhea, constipation, and cramping, as well as with symptoms of depression. Smoking doesn't cause??IBS, but can make the symptoms worse. Medicines Your??healthcare provider??may prescribe medicines. Take them as directed. For acute flare-ups of your illness, your provider may give you prescription medicines. Check with your??healthcare provider??before taking any medicines for diarrhea. Avoid anti-inflammatory medicines like ibuprofen or naproxen. Consider nutritional supplements. This is especially true if??your diarrhea is prolonged, or you aren't eating or are losing weight Follow-up care Follow up??with your??healthcare provider,??or as advised. If a stool sample was taken or cultures were done, you will be told if your treatment needs to change. You can call as directed for the results. When to seek medical advice Call your healthcare provider right away if any of these occur: Abdominal pain gets worse Constant abdominal pain moves to the right-lower abdomen You can't keep liquids down because of vomiting You have severe diarrhea You have blood (red or black color) or mucus in your stool You feel very weak or dizzy, faint, or have extreme thirst You have a fever of 100.4??F (38.0??C) or higher, or as directed by your healthcare provider Date Last Reviewed: 06/10/2015 ?? 6313-9793 [employer]. [address] [place] [address]. All rights reserved. This information is not intended as a substitute for professional medical care. Always follow your healthcare professional's instructions. Diet and Lifestyle Tips for Irritable Bowel Syndrome (IBS) Your healthcare professional may suggest some lifestyle changes to help control your IBS. Changing your diet and managing stress are two of the most important. Follow your healthcare provider???s instructions and try some of the suggestions below. Change your diet Your diet may be an important cause of IBS symptoms. You may want to try the following: Pay attention to what foods bother you, and avoid them. For example, dairy products are hard for some people to digest. Drink 6 to 8 glasses of water a day. Avoid caffeine and tobacco. These are muscle stimulants and can affect the working of your digestivetract. Avoid alcohol, which can irritate your digestive tract and make your symptoms worse. Eat more fiber if constipation is a problem. Fiber makes the stool softer and easier to pass throughthe colon. Reduce stress If stress or anxiety makes your IBS symptoms worse, learning how to manage stress may help you feel better. Try these tips: Identify the causes of stress in your life. Learn new ways to cope with them. Regular exercise is a great way to relieve stress. It can also help ease constipation. Date Last Reviewed: 04/10/2016 ?? 5074-4262 [employer]. [address] [place] [address], [place] [address]. All rights reserved. This information is not intended as a substitute for professional medical care. Always follow your healthcare professional's instructions. ??? IPLE SPINDLE SCREW MACHINE OPERATOR documented in this encounter Progress Notes Suhail Bar APRN CNP - 08/26/2017 3:40 PM CST SUBJECTIVE: CC: Joel Amos is an 22 year old woman who presents for preventive health visit. Physical Annual: Getting at least 3 servings of Calcium per day:: Yes Bi-annual eye exam:: NO Dental care twice a year:: NO Sleep apnea or symptoms of sleep apnea:: Daytime drowsiness Diet:: Regular (no restrictions) Frequency of exercise:: 1 day/week Duration of exercise:: Less than 15 minutes Taking medications regularly:: Yes Medication side effects:: None Additional concerns today:: No Concerns today: red patchy areas on feet Indigestion issue Today's PHQ-2 Score: PHQ-2 (??1998 Pfizer) 08/26/2017 Q1: Little interest or pleasure in doing things 1 Q2: Feeling down, depressed or hopeless 0 PHQ-2 Score 1 Q1: Little interest or pleasure in doing things Several days Q2: Feeling down, depressed or hopeless Not at all PHQ-2 Score 1 Abuse: Current or Past(Physical, Sexual or Emotional)- No Do you feel safe in your environment - Yes Social History Substance Use Topics ??? Smoking status: Current Some Day Smoker Packs/day: 0.25 ??? Smokeless tobacco: Never Used ??? Alcohol use 0.0 oz/week 0 Standard drinks or equivalent per week Comment: 2 times per month, 2-3 per time The patient does not drink >3 drinks per day nor >7 drinks per week. Reviewed orders with patient. Reviewed health maintenance and updated orders accordingly - Yes Labs reviewed in EPIC Mammogram not appropriate for this patient based on age. Pertinent mammograms are reviewed under the imaging tab. History of abnormal Pap smear: NO - age 21-29 PAP every 3 years recommended Reviewed and updated as needed this visit by clinical staff Tobacco Allergies Meds Med Hx Surg Hx Fam Hx Soc Hx Reviewed and updated as needed this visit by Provider Review of Systems CONSTITUTIONAL:weight loss INTEGUMENTARY/SKIN: rash on feet, itchy, for several months E: NEGATIVE for vision changes or irritation ENT: NEGATIVE for ear, mouth and throat problems R: NEGATIVE for significant cough or SOB B: NEGATIVE for masses, tenderness or discharge CV: NEGATIVE for chest pain, palpitations or peripheral edema GI: migrating abdominal pains. No blood in the stool. Occasional constipation : NEGATIVE for unusual urinary or vaginal symptoms. Periods are regular. M: NEGATIVE for significant arthralgias or myalgia N: NEGATIVE for weakness, dizziness or paresthesias P: NEGATIVE for changes in mood or affect OBJECTIVE: There were no vitals taken for this visit. Physical Exam GENERAL: healthy, alert and no [...] gross musculoskeletal defects noted, no edema SKIN: 1.5 cm x 1.5 cm erythematous raised skin lesions on feet (2) NEURO: Normal strength and tone, mentation intact and speech normal PSYCH: mentation appears normal, affect normal/bright ASSESSMENT/PLAN: 1. Health care maintenance - Pap imaged thin layer screen with HPV - recommended age 30 - 65 - HPV High Risk Types DNA Cervical 2. Abdominal pain, generalized Patient reports generalized migrating abdominal pains for a few years. Also feels that she has more gas than usual and often gets constipated. Reports no abdominal pain when she is having regular stools. Discussed likelihood of IBS and gave patient information on IBS cause and treatment. Recommended keeping a food diary to ID triggers Discussed constipation management. RTC 1-2 weeks to discuss elimination diet. 3. Loss of weight Has lost just a few pounds but patient very concerned about it. Just started a new job in which she is much more active so this is likely the cause. No red flags for malignancy. - CBC with platelets differential - TSH with free T4 reflex 4. Rash Annular lesions on the feet most consistent with nummular eczema. Tinea is also a possibility. - triamcinolone (KENALOG) 0.1 % cream; Apply sparingly to affected area three times daily for 14 days. Dispense: 30 g; Refill: 0 -Discussed eczema treatment -F/U if no improvement in 1-2 weeks -Discussed not using Kenalog for more than 2 weeks at a time. 5. Tobacco abuse Ongoing. We have discussed Chantix in the past but have been hesitant to use it given patients mental health status. She seems to be very stable now and would like to try Chantix. -discussed r/b/se, including suicidal ideation. Stop immediately and seek care if getting suicidal thoughts. - varenicline (CHANTIX STARTING MONTH MARNIE) 0.5 MG X 11 & 1 MG X 42 tablet; Take 0.5 mg tab dailyfor 3 days, then 0.5 mg tab twice daily for 4 days, then 1 mg twice daily. Dispense: 53 tablet; Refill: 0 COUNSELING: Reviewed preventive health counseling, as reflected in patient instructions reports that she has been smoking. She has been smoking about 0.25 packs per day. She has never used smokeless tobacco. Tobacco Cessation Action Plan: Self help information given to patient Estimated body mass index is 19.33 kg/(m^2) as calculated from the following: Height as of 07/22/17: 5' 4.25 (1.632 m). Weight as of 07/22/17: 113 lb 8 oz (51.5 kg). Counseling Resources: ATP IV Guidelines Pooled Cohorts Equation Calculator Breast Cancer Risk Calculator FRAX Risk Assessment ICSI Preventive Guidelines Dietary Guidelines for Americans, 2010 USDA's MyPlate ASA Prophylaxis Lung CA Screening Suhail Bar APRN [facility] IPLE SPINDLE SCREW MACHINE OPERATOR documented in this encounter Nursing Notes Aneta Varghese MA - 08/26/2017 3:40 PM CST Chief Complaint Patient presents with ??? Physical Initial BP 122/68 (Cuff Size: Adult Regular) Pulse 86 Temp 97.6 ??F (36.4 ??C) (Tympanic) Ht 5' 4.25 (1.632 m) Wt 110 lb 14.4 oz (50.3 kg) LMP 08/13/2017 (Approximate) SpO2 99% BMI 18.89kg/m2 Estimated body mass index is 18.89 kg/(m^2) as calculated from the following: Height as of this encounter: 5' 4.25 (1.632 m). Weight as of this encounter: 110 lb 14.4 oz (50.3 kg). Medication Reconciliation: complete Aneta Varghese CMA IPLE SPINDLE SCREW MACHINE OPERATOR documented in this encounter Plan of Treatment Not on filedocumented as of this encounter Procedures Procedure Name Priority Date/Time Associated Diagnosis Comme nts HPV HIGH RISK TYPES Routine 08/26/2017 4:37 PM Health care Re sults for this DNA CERVICAL MULTIPLE SPINDLE SCREW MACHINE OPERATOR maintenance procedure are i n the results section. CBC WITH PLATELETS & Routine 08/26/2017 4:36 PM Loss of weight Results for this DIFFERENTIAL MULTIPLE SPINDLE SCREW MACHINE OPERATOR procedure are i n the results section. TSH WITH FREE T4 Routine 08/26/2017 4:36 PM Loss of weight Res ults for this REFLEX MULTIPLE SPINDLE SCREW MACHINE OPERATOR procedure are i n the results section. PAP IMAGED THIN LAYER Routine 08/26/2017 4:19 PM Health care Results for this SCREEN MULTIPLE SPINDLE SCREW MACHINE OPERATOR maintenance procedure are i n the results section. documented in this encounter Results (ABNORMAL) HPV High Risk Types DNA Cervical (08/26/2017 4:37 PM MULTIPLE SPINDLE SCREW MACHINE OPERATOR) [facility] Method Time Signature HPV 16 DNA Negative NEG^Negat 09/06/2017 [facility] 7:32 AM MULTIPLE SPINDLE SCREW MACHINE OPERATOR [facility] HPV 18 DNA Negative NEG^Negat 09/06/2017 [facility] 7:32 AM MULTIPLE SPINDLE SCREW MACHINE OPERATOR [facility] Other HR HPV Positive (A) NEG^Negat 09/06/2017 [facility] herrera 7:32 AM [facility] Final This patient's sample is pos itive for other HR HPV DNA (types 31, 33, 35, 39, 45, 51, 52, 09/06/2017 [facility] Diagnosis 56, 58, 59, 66 or 68), not H PV 16 or HPV 18 DNA. This result requires clinical correlation 7:32 AM [facility] with concurrent cytology findings. [facility] Comment: (Note) METHODOLOGY: ??The Latisha keila 4800 syst em uses automated extraction, simultaneous amplification of HPV (L1 re gion) and beta-globin, ?? followed by ??real time detection of flu orescent labeled HPV and beta globin using specific oligonucleotide pr obes . The test specifically identifies types HPV 16 DNA and HPV 18 D NA while concurrently detecting the rest of the high risk type s (31, 33, 35, 39, 45, 51, 52, 56, 58, 59, 66 or 68). COMMENTS: ??This test is not intended fo r use as a screening device for women under age 30 with normal cervi ashley cytology. ??Results should be correlated with cytologic and histolo gic findings. Close clinical followup is recommended. This test was developed and its performa nce characteristics determined by the [facility], [facility]. It has not been cleared or approved by the FDA. The laboratory is regulated under [facility] as qualified to perform high-complexity testing. This test is us ed for clinical purposes. It should not be regarded as investigationa l or for research. Specimen Description Cervical Cells 09/03/2017 9:1 8 AM [facility] Comment: [id number] Specimen Anatomical Collection Method Collection Time Receive d Time (Source) Location / / Volume Laterality Cervical Cells 08/26/2017 4:37 PM 017 4:40 MULTIPLE SPINDLE SCREW MACHINE OPERATOR PM MULTIPLE SPINDLE SCREW MACHINE OPERATOR Suhail Bar ROPE TIER PETROLEUM REFINING FIRER LAB - BLOOD ORDERABLES Performing Organization Address City/State/ZIP Code Phon e Number [facility] [address] [place] [address] [facility] TSH with free T4 reflex (08/26/2017 4:36 PM MULTIPLE SPINDLE SCREW MACHINE OPERATOR) athologist Signature TSH 0.94 0.40 - 4.00 08/28/2017 [facility] mU/L 1:06 PM MULTIPLE SPINDLE SCREW MACHINE OPERATOR [facility] Specimen Anatomical Collection Method Collection Time Receive d Time (Source) Location / / Volume Laterality Blood specimen 08/26/2017 4:36 PM 017 4:38 (specimen) MULTIPLE SPINDLE SCREW MACHINE OPERATOR PM MULTIPLE SPINDLE SCREW MACHINE OPERATOR Suhail Bar ROPE TIER PETROLEUM REFINING FIRER LAB - BLOOD ORDERABLES Performing Organization Address City/State/ZIP Code Phon e Number [facility] [address] [place] [address] (ABNORMAL) CBC with platelets differential (08/26/2017 4:36 PM MULTIPLE SPINDLE SCREW MACHINE OPERATOR) [facility] Method Time Signature WBC 11.3 (H) 4.0 - 08/26/2017 [facility] 11.0 7:16 PM MULTIPLE SPINDLE SCREW MACHINE OPERATOR CLINICS 10e9/L [facility] RBC Count 4.53 3.8 - 5.2 08/26/2017 [facility] 10e12/L 7:16 PM MULTIPLE SPINDLE SCREW MACHINE OPERATOR CLINICS [facility] Hemoglobin 15.0 11.7 - 08/26/2017 [facility] 15.7 g/dL 7:16 PM MULTIPLE SPINDLE SCREW MACHINE OPERATOR CLINICS [facility] Hematocrit 43.9 35.0 - 08/26/2017 [facility] 47.0 % 7:16 PM MULTIPLE SPINDLE SCREW MACHINE OPERATOR CLINICS [facility] MCV 97 78 - 100 08/26/2017 [facility] fl 7:16 PM MULTIPLE SPINDLE SCREW MACHINE OPERATOR CLINICS [facility] MCH 33.1 (H) 26.5 - 08/26/2017 [facility] 33.0 pg 7:16 PM MULTIPLE SPINDLE SCREW MACHINE OPERATOR CLINICS [facility] MCHC 34.2 31.5 - 08/26/2017 [facility] 36.5 g/dL 7:16 PM MULTIPLE SPINDLE SCREW MACHINE OPERATOR CLINICS [facility] RDW 12.4 10.0 - 08/26/2017 [facility] 15.0 % 7:16 PM MULTIPLE SPINDLE SCREW MACHINE OPERATOR CLINICS [facility] Platelet Count 268 150 - 450 08/26/2017 [facility] 10e9/L 7:16 PM MULTIPLE SPINDLE SCREW MACHINE OPERATOR CLINICS [facility] Diff Method Automated 08/26/2017 [facility] Method 7:16 PM MULTIPLE SPINDLE SCREW MACHINE OPERATOR CLINICS [facility] % Neutrophils 55.0 % 08/26/2017 [facility] 7:16 PM MULTIPLE SPINDLE SCREW MACHINE OPERATOR CLINICS [facility] % Lymphocytes 33.7 % 08/26/2017 [facility] 7:16 PM MULTIPLE SPINDLE SCREW MACHINE OPERATOR CLINICS [facility] % Monocytes 8.2 % 08/26/2017 [facility] 7:16 PM MULTIPLE SPINDLE SCREW MACHINE OPERATOR CLINICS [facility] % Eosinophils 2.8 % 08/26/2017 [facility] 7:16 PM MULTIPLE SPINDLE SCREW MACHINE OPERATOR CLINICS [facility] % Basophils 0.3 % 08/26/2017 [facility] 7:16 PM MULTIPLE SPINDLE SCREW MACHINE OPERATOR CLINICS [facility] Absolute 6.2 1.6 - 8.3 08/26/2017 [facility] Neutrophil 10e9/L 7:16 PM MULTIPLE SPINDLE SCREW MACHINE OPERATOR CLINICS [facility] Absolute 3.8 0.8 - 5.3 08/26/2017 [facility] Lymphocytes 10e9/L 7:16 PM MULTIPLE SPINDLE SCREW MACHINE OPERATOR CLINICS [facility] Absolute 0.9 0.0 - 1.3 08/26/2017 [facility] Monocytes 10e9/L 7:16 PM MULTIPLE SPINDLE SCREW MACHINE OPERATOR CLINICS [facility] Absolute 0.3 0.0 - 0.7 08/26/2017 [facility] Eosinophils 10e9/L 7:16 PM MULTIPLE SPINDLE SCREW MACHINE OPERATOR CLINICS [facility] Absolute 0.0 0.0 - 0.2 08/26/2017 [facility] Basophils 10e9/L 7:16 PM MULTIPLE SPINDLE SCREW MACHINE OPERATOR CLINICS [facility] Specimen Anatomical Collection Method Collection Time Receive d Time (Source) Location / / Volume Laterality Blood specimen 08/26/2017 4:36 PM 017 4:38 (specimen) MULTIPLE SPINDLE SCREW MACHINE OPERATOR PM MULTIPLE SPINDLE SCREW MACHINE OPERATOR Suhail Bar ROPE TIER PETROLEUM REFINING FIRER LAB - BLOOD ORDERABLES Performing Organization Address City/State/ZIP Code Phon e Number [facility] [address] [place] [address] (ABNORMAL) Pap imaged thin layer screen with HPV - recommended age 30 - 65 (08/26/2017 4:19 PM MULTIPLE SPINDLE SCREW MACHINE OPERATOR) Component Value Ref Test Analysis Performed At [facility] Range Method Time Signature PAP LSIL (A) COPATH Copath Report [facility] Patient Name: JOEL AMOS MR#: [id number] Specimen #: [id number] Collected: 08/26/2017 Received: 08/30/2017 Reported: 09/01/2017 15:18 Ordering Phy(s): SUHAIL BAR For improved result formatting, select 'View Enhanced Report Format' under Linked Documents section. SPECIMEN/STAIN PROCESS: Pap imaged thin layer prep screening (Surepath, FocalPoint w ith guided screening) ? Pap-Cyto x 1, HPV ordered x 1 SOURCE: Cervical, endocervical ---- Pap imaged thin layer prep screening (Surepath, FocalPoint with guided screening) SPECIMEN ADEQUACY: Satisfactory for evaluation. -Transformation zone component present. CYTOLOGIC INTERPRETATION: Epithelial cell abnormality: ??squamous cell: ??low-grade sq uamous intraepithelial lesion (LSIL) Electronically signed out by: Logan Grover M.D. Processed and screened at [facility] CLINICAL HISTORY: Papanicolaou Test Limitations: ??Cervical cytology is a scre ening test with limited sensitivity; regular screening is critical for cancer prevention; Pap tests are primarily effective for the diagnosis/prevention of squamous cell carcinoma, not adenoca rcinomas or other cancers. TESTING LAB LOCATION: [address] ??[id number] COLLECTION SITE: Client: ??[facility] Location: [facility] (R) Specimen (Source) Anatomical Collection Method Collection Time Re ceived Time Location / / Volume Laterality Cytologic 08/26/2017 4:19 08/30/2017 material PM MULTIPLE SPINDLE SCREW MACHINE OPERATOR 12:24 PM MULTIPLE SPINDLE SCREW MACHINE OPERATOR (specimen) Suhail Bar APRN, CNP LAB - [facility] Performing Organization Address City/State/ZIP Code Phon e Number [facility] documented in this encounter Visit Diagnoses Diagnosis Health care maintenance - Primary Unspecified general medical examination Abdominal pain, generalized Loss of weight Rash Rash and other nonspecific skin eruption Tobacco abuse Tobacco use disorder documented in this encounter Additional Health Concerns Assessment Noted Time PHQ-9 Depression Total Score: 13 06/29/2017 2:50 PM CD T documented as of this encounter Care Teams Truck Body Builder Apprentice Relationship Specialty Start Date End Date Suhail Bar APRN PETROLEUM REFINING FIRER PCP - General Nurse Practitioner 06/29/17 04/14/20 [address] [facility] [place] [id number] documented as of this encounter
--- OUTSIDE RECORDS SUMMARY | 2022-09-05 18:57 | XMS_ITS | Encounter Summary ---
:1995 Author Organization [facility] Address [address] [place] [address] Care Team Providers Name Role Phone Viri Gallardo APRN, CNP Primary Care Provider [phone] Viri Gallardo APRN BUTTERMAKER CONTINUOUS CHURN Unavailable [phone] Viri Gallardo APRN, CNP Unavailable [phone] Reason for Visit Reason Comments Flu Encounter Details Date Type Department Care Team Description 11/23/2017 Office Visit [facility] [place], Acute phar yngitis, unspecified etiology (Primary Dx); Clinic Jesu Potter, Viral gastroenteritis [address] [facility] [address] [facility] [place] [address] [place] [id number] Social History Tobacco Use Types Packs/Day Years [...] Sign Reading Time Taken Comments Blood Pressure 110/70 11/23/2017 1:09 PM STAVE BLOCK ROLLER Pulse 71 11/23/2017 1:09 PM STAVE BLOCK ROLLER Temperature 36.6 ??C (97.9 ??F) 11/23/2017 1:09 PM STAVE BLOCK ROLLER Respiratory Rate - - Oxygen Saturation 99% 11/23/2017 1:09 PM STAVE BLOCK ROLLER Inhaled Oxygen Concentration - - Weight 49.9 kg (110 lb) 11/23/2017 1:09 PM STAVE BLOCK ROLLER Height 163.2 cm (5' 4.25) 11/23/2017 1:09 PM STAVE BLOCK ROLLER Body Mass Index 18.73 11/23/2017 1:09 PM STAVE BLOCK ROLLER documented in this encounter Patient Instructions Patient InstructionsMindi Huynh PA-C - 11/23/2017 1:10 PM STAVE BLOCK ROLLER Images from the original note were not included. Stomach Flu What is stomach flu? Stomach flu is a viral infection that affects the stomach and small intestine. It is also called viral gastroenteritis. The illness is usually brief, lasting 1 to 3 days. How does it occur? Many different viruses can cause stomach flu, including rotaviruses, adenoviruses, and the [place] virus. The body fluids of infected people contain the virus, sometimes even before their symptoms begin. The virus can be spread by direct contact with an infected person. For example, you might get it by kissing or shaking hands or by sharing food, drink, or eating utensils. The virus irritates the stomach and intestine. When the stomach and intestine are irritated, they don???t work as well as they should. Food may move faster through your digestive tract. What are the symptoms? When you have stomach flu, you may have one or more of the following symptoms: nausea vomiting stomach cramps diarrhea mild fever tiredness chills loss of appetite muscle aches. The illness may develop over a period of hours, or it may suddenly start with stomach cramps, vomiting, or diarrhea. Some bacteria, parasites, medicines, or other medical conditions can cause similar symptoms. If yoursymptoms are unusually severe or last longer than a couple days, your healthcare provider can check to see if the diarrhea is caused by something other than a virus. How is it diagnosed? Your healthcare provider will ask about your symptoms. He or she will examine you. You may have lab tests to rule out more serious illnesses and to check for problems that can be caused by stomach flu,such as dehydration. How is it treated? The most important thing to do is to rest the stomach and intestine. You can do this by not eating solid food for a while and drinking only clear liquids. As your symptoms go away, you can start eatingsoft bland foods that are easy to digest. If you have been vomiting a lot, it is best to have only small, frequent sips of liquids. Drinking too much at once, even an ounce or two, may cause more vomiting. Your choice of liquids is important. If water is the only liquid you can drink without vomiting, that is OK. However, if you have been vomiting often or for a long time, you must replace the minerals, sodium and potassium, that are lost when you vomit. Ask your healthcare provider what sport drinks orother rehydration drinks could help you replace these minerals. Other clear liquids you can drink are weak tea and apple juice. You may also drink soft drinks without caffeine (such as 7-UP) after letting them go flat (lose their carbonation). It may be easier to keep down liquids that are cold. Avoid liquids that are acidic (such as orange juice) or caffeinated (such as coffee) or have a lot of carbonation. Do not drink milk until you no longer have diarrhea. You may start eating soft bland foods when you have not vomited for several hours and are able to drink clear liquids without further upset. Soda crackers, toast, plain noodles, gelatin, applesauce, and bananas are good first choices. Avoid foods that are acidic, spicy, fatty, or fibrous (such as meats, coarse grains, vegetables). Also avoid dairy products. You may start eating these foods again in 3days or so, when all signs of illness have passed. Sometimes treatment includes prescription medicine to prevent nausea and vomiting or diarrhea. Nonprescription medicine is available for the treatment of diarrhea and can be very effective. If you use it, make sure you use only the dose recommended on the package. Don???t use it for more than 2 days without checking with your healthcare provider. If you have chronic health problems, always check with your healthcare provider before you use any medicine for diarrhea. How long do the effects last? Stomach flu rarely lasts longer than 1 to 3 days. However, it may be 1 to 2 weeks before your bowel habits are completely back to normal. Dehydration is a potentially serious complication of stomach flu. It can happen if your body loses too much fluid because you keep vomiting or having diarrhea. If you are severely dehydrated, you may need to be given fluids intravenously (IV). In children and older adults, dehydration can quickly become life threatening. How can I take care of myself? Rest your stomach and intestines by following the suggested guidelines for your diet during the illness, but make sure you prevent dehydration by drinking enough liquids. Drink just small amounts or sips while you are having vomiting. Don???t take aspirin, ibuprofen, or other nonsteroidal anti-inflammatory medicines (NSAIDs) without checking first with your healthcare provider. Call your healthcare provider if: Your symptoms are getting worse. You keep having severe symptoms (vomiting or frequent diarrhea) for more than 1 or 2 days, or you are just not getting better after a few days. You start having symptoms that are not usually caused by stomach flu, such as blood in your vomit, bloody diarrhea, or severe abdominal pain. What can I do to help prevent stomach flu? The single, most helpful way to prevent the spread of stomach flu is frequent, thorough hand washing. Also, avoid contact with the body fluids of an infected person, including saliva. Don't share food with someone who has stomach flu. E BLOCK ROLLER documented in this encounter Progress Notes Mindi Huynh PA-C - 11/23/2017 1:10 PM CST SUBJECTIVE: Joel Amos is a 22 year old female who presents to clinic today for the following health issues: Acute Illness Acute illness concerns: vomiting Onset: 10 days ?? Fever: no ?? Chills/Sweats: YES- both ?? Headache (location?): YES ?? Sinus Pressure:no ?? Conjunctivitis: no ?? Ear Pain: no ?? Rhinorrhea: no ?? Congestion: YES- nasal and chest ?? Sore Throat: YES ?? Cough: [id number] ?? Wheeze: no ?? Decreased Appetite: YES ?? Nausea: YES x today ?? Vomiting: YES x today ?? Diarrhea: YES x few days ?? Dysuria/Freq.: no ?? Fatigue/Achiness: YES- both ?? Sick/Strep Exposure: YES Therapies Tried and outcome: nausea medication URI symptoms have improved. Patient now feels nauseated. Boyfriend has similar symptoms Works at [email or web address]. ROS: ROS otherwise negative OBJECTIVE: BP 110/70 (BP Location: Right arm, Cuff Size: Adult Regular) Pulse 71 Temp 97.9 ??F (36.6 ??C) (Oral) Ht 5' 4.25 (1.632 m) Wt 110 lb (49.9 kg) SpO2 99% BMI 18.73 kg/m2 Body mass index is 18.73 kg/(m^2). GENERAL: alert, no distress HENT: ear canals- normal; TMs- normal; Nose- normal; Mouth- no ulcers, no lesions NECK: no tenderness, no adenopathy RESP: lungs clear to auscultation - no rales, no rhonchi, no wheezes CV: regular rates and rhythm, normal S1 S2, no S3 or S4 and no murmur, no click or rub ABD: soft, tender throughout Diagnostic Test Results: Results for orders placed or performed in visit on 11/23/17 Influenza A/B antigen Result Value Ref Range Influenza A/B Agn Specimen Nasal Influenza A Negative NEG^Negative Influenza B Negative NEG^Negative Strep, Rapid Screen Result Value Ref Range Specimen Description Throat Rapid Strep A Screen NEGATIVE: No Group A streptococcal antigen detected by immunoassay, await culture report. ASSESSMENT/PLAN: (J02.9) Acute pharyngitis, unspecified etiology (primary encounter diagnosis) Comment: TC pending. Limit exposures. Plan: Strep, Rapid Screen, Beta strep group A culture (A08.4) Viral gastroenteritis Comment: BRAT diet and increase fluids. Plan: Influenza A/B antigen See Patient Instructions Mindi Huynh PA-C [facility]ESU E BLOCK ROLLER documented in this encounter Nursing Notes Adalid Kaur, CRISS - 11/23/2017 1:10 PM CST Chief Complaint Patient presents with ??? Flu Initial BP 110/70 (BP Location: Right arm, Cuff Size: Adult Regular) Pulse 71 Temp 97.9 ??F (36.6 ??C) (Oral) Ht 5' 4.25 (1.632 m) Wt 110 lb (49.9 kg) SpO2 99% BMI 18.73 kg/m2 Estimated body mass index is 18.73 kg/(m^2) as calculated from the following: Height as of this encounter: 5' 4.25 (1.632 m). Weight as of this encounter: 110 lb (49.9 kg). Medication Reconciliation: complete Adalid Kaur CMA E BLOCK ROLLER documented in this encounter Plan of Treatment Not on filedocumented as of this encounter Procedures Procedure Name Priority Date/Time Associated Diagnosis Comme nts BETA HEMOLYTIC Routine 11/23/2017 2:05 PM Acute pharyngitis, R esults for this STREP GROUP A STAVE BLOCK ROLLER unspecified etiology proced ure are in CULTURE the results section. RAPID STREP SCREEN Routine 11/23/2017 1:45 PM Acute pharyngiti s, Results for this THROAT SWAB STAVE BLOCK ROLLER unspecified etiology procedu re are in the results section. INFLUENZA A/B Routine 11/23/2017 1:09 PM Viral gastroenteritis Results for this ANTIGEN STAVE BLOCK ROLLER procedure are i n the results section. documented in this encounter Results Beta strep group A culture (11/23/2017 2:05 PM STAVE BLOCK ROLLER) Component Value Ref Test Analysis Performed At [facility] [employer] [place] Range Method Time Signature Specimen Throat [facility] Culture Micro No beta 11/24/2017 [place] hemolytic 4:12 PM STAVE BLOCK ROLLER [facility] Streptococcus JESU Group A isolated Specimen Anatomical Collection Method Collection Time Receive d Time (Source) Location / / Volume Laterality Specimen from 11/23/2017 2:05 PM 11/23/19 18 2:07 throat STAVE BLOCK ROLLER PM STAVE BLOCK ROLLER (specimen) Mindi Huynh PA-C LAB - MICRO GENERAL ORD ERABLES Performing Organization Address City/State/ZIP Code Phon e Number [facility] [address] [place] [address] Strep, Rapid Screen (11/23/2017 1:45 PM STAVE BLOCK ROLLER) Component Value Ref Test Analysis Performed At [facility] [employer] [place] Range Method Time Signature Specimen Throat [facility] Rapid Strep A NEGATIVE: No 11/23/2017 [place] Screen Group A 2:02 PM STAVE BLOCK ROLLER CLINICS streptococcal JESU antigen detected by immunoassay, await culture report. Specimen Anatomical Collection Method Collection Time Receive d Time (Source) Location / / Volume Laterality Specimen from 11/23/2017 1:45 PM 11/23/19 18 1:46 throat STAVE BLOCK ROLLER PM STAVE BLOCK ROLLER (specimen) Mindi Huynh PA-C LAB - MICRO GENERAL ORD ERABLES Performing Organization Address City/[facility] Code Phon e Number [facility] [address] [place], [place] [address] [address] [phone] Influenza A/B antigen (11/23/2017 1:09 PM STAVE BLOCK ROLLER) athologist Signature Influenza A/B Nasal 11/23/2017 [place] Agn Specimen 1:15 PM STAVE BLOCK ROLLER [facility] Influenza A Negative NEG^Negati 11/23/2017 [place] ve 1:37 PM STAVE BLOCK ROLLER [facility] Influenza B Negative NEG^Negati 11/23/2017 [place] ve 1:37 PM STAVE BLOCK ROLLER CLINICS JESU Comment: Test results must be correlated with i nical data. If necessary, results should be confirmed by a molecular assay or viral culture. Specimen Anatomical Collection Method Collection Time Receive d Time (Source) Location / / Volume Laterality Specimen from 11/23/2017 1:09 PM 11/23/19 18 1:14 nose (specimen) STAVE BLOCK ROLLER PM STAVE BLOCK ROLLER Mindi Huynh PA-C LAB - MICRO GENERAL ORD ERABLES Performing Organization Address City/[facility] Phon e Number [facility] [address] [place], [place] [address], [place] [address] [phone] documented in this encounter Visit Diagnoses Diagnosis Acute pharyngitis, unspecified etiology - Primary Viral gastroenteritis Intestinal infection due to other organi sm, not elsewhere classified documented in this encounter Additional Health Concerns Assessment Noted Time PHQ-9 Depression Total Score: 06/29/2017 2:50 PM CD T documented as of this encounter Care Teams Boardinghouse Keeper Relationship Specialty Start Date End Date Viri Gallardo, PCP - General Nurse Practitioner 06/29/17 04/14/20 MAILROOM COORDINATOR BUTTERMAKER CONTINUOUS CHURN [address] [facility] [place] [address] Viri Gallardo, PCP - Assigned PCP 09/12/17 12/13/18 MAILROOM COORDINATOR BUTTERMAKER CONTINUOUS CHURN [address] [facility] [place] [address] Viri Gallardo, Assigned PCP 09/12/1709/16 MAILROOM COORDINATOR BUTTERMAKER CONTINUOUS CHURN [address] [facility] [place] [address] documented as of this encounter
--- OUTSIDE RECORDS SUMMARY | 2022-09-05 18:57 | XMS_ITS | Encounter Summary ---
:1995 Author Organization [facility] Address [address] [place] [address] Care Team Providers Name Role Phone Viri Gallardo APRN, CNP Primary Care Provider [phone] Encounter Details Date Type Department Care Team Description 09/06/2017 Emergency [facility] Emergency Dept [address] [place] [address] Social History Tobacco Use Types Packs/Day Years [...] Sign Reading Time Taken Comments Blood Pressure 136/76 09/06/2017 12:23 PM CHANNEL MACHINE OPERATOR Pulse - - Temperature 36.9 ??C (98.5 ??F) 09/06/2017 12:23 PM CHANNEL MACHINE OPERATOR Respiratory Rate 14 09/06/2017 12:23 PM CHANNEL MACHINE OPERATOR Oxygen Saturation 98% 09/06/2017 12:23 PM CHANNEL MACHINE OPERATOR Inhaled Oxygen Concentration - - Weight - - Height - - Body Mass Index - - documented in this encounter Medications at Time [...] daily 53 tablet 0 08/1111/23/2017 STARTING MONTH MARNIE) 0.5 for 3 days, then 0.5 MG X 11 & 1 MG X 42 mg tab twice daily tabletIndications: for 4 days, then 1 mg Tobacco abuse twice daily. documented as of this encounter ED Notes Lucila Contreras RN - 09/06/2017 12:22 PM CST Abdomen pain, vomiting and dizziness for two weeks. States she was seen here before and nothing was found, but patient notes she continues to have symptoms. NEL MACHINE OPERATOR documented in this encounter Plan of Treatment Not on filedocumented as of this encounter Visit Diagnoses Not on filedocumented in this encounter Additional Health Concerns Assessment Noted Time PHQ-9 Depression Total Score: 13 06/29/2017 2:50 PM CD T documented as of this encounter Care Teams Snack Bar Cashier Relationship Specialty Start Date End Date Viri Gallardo APRN CNP PCP - General Nurse Practitioner 06/29/17 04/14/20 [address] [facility] [place] [address] documented as of this encounter
--- OUTSIDE RECORDS SUMMARY | 2022-09-05 18:57 | XMS_ITS | Encounter Summary ---
:1995 Author Organization [facility] Address [address] [place] [address] Care Team Providers Name Role Phone Viri Gallardo APRN, CNP Primary Care Provider [phone] Viri Gallardo APRN, CNP Unavailable [phone] Vrii Gallardo APRN, CNP Unavailable [phone] Reason for Visit Reason Onset Date Comments No Show No Show 09/23/2017 Encounter Details Date Type Department Care Team Description 09/23/[address] [facility] Viri Gallardo NO SHOW (P rimary Dx) Clinic Jesu Nicole APRN [address] [facility] [address] [facility] [address] [facility] [place] [address] [place] [id number] Social History Tobacco Use Types Packs/Day Years [...] documented as of this encounter Progress Notes Aneta Varghese MA - 09/23/2017 10:00 AM CST NO SHOW This patient was a no show for this scheduled appointment. TRICIAN RADIO documented in this encounter Plan of Treatment Not on filedocumented as of this encounter Visit Diagnoses Diagnosis NO SHOW - Primary documented in this encounter Additional Health Concerns Assessment Noted Time PHQ-9 Depression Total Score: 13 06/29/2017 2:50 PM CD T documented as of this encounter Care Teams Senior Materials Planner Relationship Specialty Start Date End Date Viri Gallardo, PCP - General Nurse Practitioner 06/29/17 04/14/20 SKILLED LABORER TRUCK SERVICE MANAGER [address] [facility] [place] [address] Viri Gallardo, PCP - Assigned PCP 09/12/17 12/13/18 SKILLED LABORER TRUCK SERVICE MANAGER [address] [facility] [place] [address] Viri Gallardo, Assigned PCP 09/12/1709/16 SKILLED LABORER TRUCK SERVICE MANAGER [address] [facility] [place] [address] documented as of this encounter
--- OUTSIDE RECORDS SUMMARY | 2022-09-05 18:57 | XMS_ITS | Encounter Summary ---
:1995 Author Organization [place] Address [address] [place] [address] Care Team Providers Name Role Phone Viri Gallardo APRN, CNP Primary Care Provider [phone] Viri Gallardo APRN SENIOR PROJECT ACCOUNTANT Unavailable [phone] Viri Gallardo APRN, CNP Unavailable [phone] Reason for Visit Reason Onset Date Comments Referral 09/20/2017 Encounter Details Date Type Department Care Team Description 09/20/2017 Telephone [facility] Viri Gallardo istine, Referral Jesu ALARCON SENIOR PROJECT ACCOUNTANT [address] [facility] [address] [facility] [address] [place] [address] [place] [address] [phone] Social History Tobacco Use Types Packs/Day Years [...] Telephone Encounter - Valerie Gilbert RN - 09/20/2017 2:27 PM AUTOMATION MACHINE OPERATOR Patient informed. Agreed to an in clinic office visit. Scheduled this . Advised to return toER if sx worsen before than. Patient expressed understanding. Valerie Cuevas RN, BSN, [place] O[place] RN MATION MACHINE OPERATOR Telephone Encounter - Viri Gallardo APRN CNP - 09/20/2017 10:57 AM AUTOMATION MACHINE OPERATOR Please call patient and give her my apologies for having to cancel. I cannot give her the referral until she comes in for hospital follow up. There were some serious things we needed to talk about. I really want to touch base. Would she at least be open to a phone visit? Don't bring that up unless she refuses to come in. MATION MACHINE OPERATOR Telephone Encounter - Magali Han RN - 09/20/2017 9:44 AM CST Patient calling that she is requesting a referral to her OB to determine the type of HPV she has andalso to have her IUD taken out. States she was going to discuss at the Hospital f/u today but it wascanceled. Refuses to reschedule the Hospital f/u. ARCHAEOLOGY PROFESSOR [facility] [place]. [phone] MATION MACHINE OPERATOR documented in this encounter Plan of Treatment Not on filedocumented as of this encounter Visit Diagnoses Not on filedocumented in this encounter Additional Health Concerns Assessment Noted Time PHQ-9 Depression Total Score: 13 06/29/2017 2:50 PM CD T documented as of this encounter Care Teams Director Industrial Relationship Specialty Start Date End Date Viri Gallardo PCP - General Nurse Practitioner 06/29/17 04/14/20 SPECIAL AGENT FBI SENIOR PROJECT ACCOUNTANT [address] [facility] [address] [place] [address] Viri Gallardo PCP - Assigned PCP 09/12/17 12/13/18 SPECIAL AGENT FBI SENIOR PROJECT ACCOUNTANT [address] [facility] [place] [address] Viri Gallardo, Assigned PCP 09/12/1709/16 SPECIAL AGENT FBI SENIOR PROJECT ACCOUNTANT [address] [facility] [place] [address] documented as of this encounter
--- OUTSIDE RECORDS SUMMARY | 2022-09-05 18:57 | XMS_ITS | Encounter Summary ---
:1995 Author Organization [place] Address [address] [place] [address] Care Team Providers Name Role Phone Viri Gallardo APRN PRINT DECORATOR Primary Care Provider [phone] No Ref-Primary, Physician Primary Care Provider [phone] SamiViri bell APRN PRINT DECORATOR Unavailable [phone] SamiViri APRN PRINT DECORATOR Unavailable [phone] Ailyn Medina RN Unavailable Unavailable Sami, Viri Nicole APRN PRINT DECORATOR Unavailable [phone] Chasity Wild PA-C Unavailable [phone] Sami, Viri Nicole APRN PRINT DECORATOR Unavailable [phone] Kenisha Garcia MANUFACTURING AUTOMATION ENGINEER PRINT DECORATOR Unavailable [phone] Encounter Details Date Type Department Care Team Description 07/23/2017 Result Follow Up [facility] Jesu Urbano PA-C [address] [facility] [address] [place] [address] [place] [address] [phone] Social History Tobacco Use Types Packs/Day Years [...] documented as of this encounter Progress Notes Gabi Pelayo CMA - 07/23/2017 5:28 PM CDT [phone] ([place]) Tried to call the number above and it is NOT correct. Pt does not have my chart. Will mail a letter. Gabi Pelayo CMA - 07/23/2017 5:28 PM CDT unable to call patient - letter mailed documented in this encounter Plan of Treatment Not on filedocumented as of this encounter Visit Diagnoses Not on filedocumented in this encounter Additional Health Concerns Assessment Noted Time PHQ-9 Depression Total Score: 13 06/29/2017 2:50 PM CD T documented as of this encounter Care Teams Back Office Medical Assistant Relationship Specialty Start Date End Date Viri Gallardo PCP - General Nurse Practitioner 06/29/17 04/14/20 DORIAN Nicole PRINT DECORATOR [address] [facility] [place] [address] No Ref-Primary, PCP - General 04/15/20 Physician Viri Gallardo PCP - Assigned PCP 09/12/17 12/13/18 DORIAN Nicole PRINT DECORATOR [address] [facility] [place] [address] Viri Gallardo Nurse Practitioner 04/15/20 DORIAN Nicole PRINT DECORATOR [address] [facility] [place] [address] Ailyn Medina, [facility] Primary Care - CC 07/08/18 07/08/18 Viri Gallardo Assigned PCP 09/12/17 09/16/19 DORIAN Nicole PRINT DECORATOR [address] [facility] [place] [address] Chasity Wild Assigned PCP 09/17/19 08/17/20 JAGDISH Romero [address] [facility] [place] [address] Viri Gallardo Assigned PCP 08/18/20 04/24/21 DORIAN Nicole PRINT DECORATOR [address] [facility] [place] [id number] Kenisha Garcia Assigned PCP 04/25/21 DORIAN Sawyer PRINT DECORATOR [address] [facility] [place] [address] documented as of this encounter
--- OUTSIDE RECORDS SUMMARY | 2022-09-05 18:57 | XMS_ITS | Encounter Summary ---
:1995 Author Organization [facility] Address [address] [place] [address] Care Team Providers Name Role Phone Viri Gallardo APRN, CNP Primary Care Provider [phone] Reason for Visit Reason Comments Musculoskeletal Problem right arm Diarrhea Encounter Details Date Type Department Care Team Description 07/22/2017 Office Visit [facility] Josse Hassan Diarrhea , unspecified type (Primary Dx); Clinic Jesu Urbano PA-C Acute pain of right shoulder [address] [facility] [address] [place] [address] [place] [address] Social History Tobacco Use Types [...] Reading Time Taken Comments Blood Pressure 110/70 07/22/2017 2:04 PM CDT Pulse 78 07/22/2017 2:04 PM CDT Temperature 36.8 ??C (98.3 ??F) 07/22/2017 2:04 PM CDT Respiratory Rate - - Oxygen Saturation 100% 07/22/2017 2:04 PM CDT Inhaled Oxygen Concentration - - Weight 51.5 kg (113 lb 8 oz) 07/22/2017 2:04 PM CDT Height 163.2 cm (5' 4.25) 07/22/2017 2:04 PM CDT Body Mass Index 19.33 07/22/2017 2:04 PM CDT documented in this encounter Patient Instructions Patient InstructionsJosse Hassan PA-C - 07/22/2017 2:26 PM CDT Images from the original note were not included. Rest shoulder - no heavy lifting Tylenol for pain Light stretching Sling (only as a reminder to rest shoulder) - continue range of motion throughout the day See below for diarrhea Back Sprain or Strain Injury to the muscles (strain) or ligaments (sprain) around the spine can??be troubling. Injury may occur after a sudden forceful twisting or bending force such as in a car accident, after a simple awkward movement, or after lifting something heavy with poor body positioning. In??any case, muscle spasm is often present and adds to the pain. Thankfully, most people feel better in 1 to 2 weeks, and most of the rest in 1 to 2 months. Most people can remain active. Unless you had a forceful or traumatic physical injury such as??a car accidentor fall, X-rays may not be ordered for the first evaluation of a back sprain or strain. If pain continues and does not respond to medical treatment, your healthcare provider may then order X-rays and other tests. Home care The following guidelines will help you care for your injury at home: ?? When in bed, try to find a comfortable position. A firm mattress is best. Try lying flat on your back with pillows under your knees. You can also try lying on your side with your knees bent up toward your chest and a pillow between your knees. ?? Don't sit for long periods. Try not to take long car rides or take other trips that have you sitting for a long time. This puts more stress on the lower back than standing or walking. ?? During the first 24 to 72 hours after an injury or flare-up, apply an ice pack to the painful area for 20 minutes. Then remove it for 20 minutes. Do this for??60 to 90 minutes, or several times a day. This will reduce swelling and pain. Be sure to wrap the ice pack in a thin towel or plastic to protect your skin. ?? You can start with ice, then switch to??heat. Heat from a hot shower, hot bath, or heating pad reduces pain and works well for muscle spasms. Put heat on the painful area for 20 minutes, then removefor 20 minutes.??Do this for 60??to 90 minutes, or several times a day. Do not use a heating pad while sleeping. It can burn the skin. ?? You can alternate the??ice and heat. Talk with your healthcare provider to find out the best treatment or therapy for your back pain. ?? Therapeutic massage will help relax the back muscles without stretching them. ?? Be aware of safe lifting methods. Do not lift anything over 15 pounds until all of the pain is gone. Medicines Talk to your healthcare provider before using medicines, especially if you have other health problems or are taking other medicines. ?? You may use acetaminophen or ibuprofen to control pain, unless another pain medicine was prescribed. If you have chronic conditions like diabetes, liver or kidney disease, stomach ulcers, or gastrointestinal bleeding, or are taking blood-thinner medicines, talk with your doctor before taking any medicines. ?? Be careful if you are given prescription medicines, narcotics, or medicine for muscle spasm. Theycan cause drowsiness, and affect your coordination, reflexes, and judgment. Do not drive or operate heavy machinery when taking these types of medicines. Only take pain medicine as prescribed by [facility]. Follow-up care Follow up with your healthcare provider, or as advised. You may need physical therapy or more tests??if your symptoms get worse. If you had X-rays your healthcare provider may be checking for any broken bones, breaks, or fractures. Bruises and sprains can sometimes hurt as much as a fracture. These injuries can take time to healcompletely. If your symptoms don???t improve or they get worse, talk with your healthcare provider. You may need a repeat X-ray or other tests. Call 911 Call for emergency care if any of the following occur: ?? Trouble breathing ?? Confused ?? Very drowsy or trouble awakening ?? Fainting or loss of consciousness ?? Rapid or very slow heart rate ?? Loss of bowel or bladder control When to seek medical advice Call your healthcare provider right away if any of the following occur: ?? Pain gets worse or spreads to your arms or legs ?? Weakness or numbness in one or both arms or legs ?? Numbness in the groin or genital area Date Last Reviewed: 03/11/2016 ?? [id number] [employer]. [address] [place] [address], [place] [address]. All rights reserved. This information is not intended as a substitute for professional medical care. Always follow your healthcare professional's instructions. Uncertain Causes of Diarrhea (Adult) Diarrhea is when stools are loose and watery. This can be caused by: ?? Viral infections ?? Bacterial infections ?? Food poisoning ?? Parasites ?? Irritable bowel syndrome (IBS) ?? Inflammatory bowel diseases such as ulcerative colitis, Crohn's disease, and celiac disease ?? Food intolerance, such as to lactose, the sugar found in milk and milk products ?? Reaction to medicines like antibiotics, laxatives, cancer drugs, and antacids Along with diarrhea, you may also have: ?? Abdominal pain and cramping ?? Nausea and vomiting ?? Loss of bowel control ?? Fever and chills ?? Bloody stools In some cases, antibiotics may help to treat diarrhea. You may have a stool sample test. This is done to see what is causing your diarrhea, and if antibiotics will help treat it. The results of a stoolsample test may take up to 2 days. The healthcare provider may not give you antibiotics until he or she has the stool test results. Diarrhea can cause dehydration. This is the loss of too much water and other fluids from the body. When this occurs, body fluid must be replaced. This can be done with oral rehydration solutions. Oral rehydration solutions are available at drugstores and grocery stores without a prescription. Home care Follow all instructions given by your healthcare provider. Rest at home for the next 24 hours, or until you feel better. Avoid caffeine, tobacco, and alcohol. These can make diarrhea, cramping, and pain worse. If taking medicines: ?? Don???t take phwj-sfd-mkirqin diarrhea or nausea medicines unless your healthcare provider tells you to. ?? You may use acetaminophen or NSAID medicines like ibuprofen or naproxen to reduce pain and fever.Don???t use these if you have chronic liver or kidney disease, or ever had a stomach ulcer or gastrointestinal??bleeding. Don't use NSAID medicines if you are already taking one for another condition (like arthritis) or are on daily aspirin therapy (such as for heart disease or after a stroke). Talk with your healthcare provider first. ?? If antibiotics were prescribed, be sure you take them until they are finished. Don???t stop taking them even when you feel better. Antibiotics must be taken as a full course. To prevent the spread of illness: ?? Remember that washing with soap and water and using alcohol-based contract clerk is the best way to prevent the spread of infection. ?? Clean the toilet after each use. ?? Wash your hands before eating. ?? Wash your hands before and after preparing food. Keep in mind that people with diarrhea or vomiting should not prepare food for others. ?? Wash your hands after using cutting boards, countertops, and knives that have been in contact with raw foods. ?? Wash and then peel fruits and vegetables. ?? Keep uncooked meats away from cooked and cndnl-je-aeu foods. ?? Use a food thermometer when cooking. Cook poultry to at least 165??F (74??C). Cook ground meat (beef, veal, pork, castillo) to at least 160??F (71??C). Cook fresh beef, veal, castillo, and pork to at least 145??F (63??C). ?? Don???t eat raw or undercooked eggs (poached or jacqueline side up), poultry, meat, or unpasteurized milk and juices. Food and drinks The main goal while treating vomiting or diarrhea is to prevent dehydration. This is done by taking small amounts of liquids often. ?? Keep in mind that liquids are more important than food right now. ?? Drink only small amounts of liquids at a time. ?? Don???t force yourself to eat, especially if you are??having cramping, vomiting, or diarrhea. Don???t eat large amounts at a time, even if you are hungry. ?? If you eat, avoid fatty, greasy, spicy, or fried foods. ?? Don???t eat dairy foods or drink milk if you have diarrhea.??These can make??diarrhea worse. During the first 24 hours you can try: ?? Oral rehydration solutions. Do not use sports drinks. They have too much sugar and not enough electrolytes. ?? Soft drinks without caffeine ?? Lora isidro ?? Water (plain or flavored) ?? Decaf tea or coffee ?? Clear broth, consomm??, or bouillon ?? Gelatin, popsicles, or frozen fruit juice bars The second 24 hours, if you are feeling better, you can add: ?? Hot cereal, plain toast, bread, rolls, or crackers ?? Plain noodles, rice, mashed potatoes, chicken noodle soup, or rice soup ?? Unsweetened canned fruit (no pineapple) ?? Bananas As you recover: ?? Limit fat intake to less than 15 grams per day. Don???t eat margarine, butter, oils, mayonnaise, sauces, gravies, fried foods, peanut butter, meat, poultry, or fish. ?? Limit fiber. Don???t eat raw or cooked vegetables, fresh fruits except bananas, or bran cereals. ?? Limit caffeine and chocolate. ?? Limit dairy. ?? Don???t use spices or seasonings except salt. ?? Go back to your normal diet over time, as you feel better and your symptoms improve. ?? If the symptoms come back, go back to a simple diet or clear liquids. Follow-up care Follow up with your healthcare provider, or as advised. If a stool sample was taken or cultures weredone, call the healthcare provider for the results as instructed. Call 911 Call 911 if you have any of these symptoms: ?? Trouble breathing ?? Confusion ?? Extreme drowsiness or trouble walking ?? Loss of consciousness ?? Rapid heart rate ?? Chest pain ?? Stiff neck ?? Seizure When to seek medical advice Call your healthcare provider right away if any of these occur: ?? Abdominal pain that gets worse ?? Constant lower right abdominal pain ?? Continued vomiting and inability to keep liquids down ?? Diarrhea more than 5 times a day ?? Blood in vomit or stool ?? Dark urine or no urine for 8 hours, dry mouth and tongue, tiredness, weakness, or dizziness ?? Drowsiness ?? New rash ?? You don???t get better in 2 to 3 days ?? Fever of 100.4??F (38??C) or higher that doesn???t get lower with medicine Date Last Reviewed: 10/13/2015 ?? [id number] [employer]. [address] [place] [address], [place] [address]. All rights reserved. This information is not intended as a substitute for professional medical care. Always follow your healthcare professional's instructions. documented in this encounter Progress Notes Josse Hassan PA-C - 07/22/2017 1:40 PM CDT SUBJECTIVE: Joel Amos is a 22 year old female who presents to clinic today for the following health issues: Musculoskeletal problem/pain ?? Duration: 3 days ago ?? Description Location: right upper arm and right upper back ?? Intensity: severe ?? Accompanying signs and symptoms: none ?? History Previous similar problem: no Previous evaluation: none ?? Precipitating or alleviating factors: Trauma or overuse: YES- happened with work does [employer] care, pulled tendon ?? Aggravating factors include: reaching, raising arm, ?? Therapies tried and outcome: Stretching, massage, chiropractor, ibuprofen 600 mg once ?? Heating bag Diarrhea ?? Duration: 5 days ?? Description: Consistency of stool: watery and explosive Blood in stool: no Number of loose stools past 24 hours: about 10 ?? Intensity: severe ?? Accompanying signs and symptoms: Fever: no Nausea/vomitting: YES- nausea from arm pain Abdominal pain: YES and bloating Weight loss: no ?? History 3 weeks of antibiotics ?? Precipitating or alleviating factors: None ?? Therapies tried and outcome: none ROS: C: NEGATIVE for fever, chills, change in weight E/M: NEGATIVE for ear, mouth and throat problems : No urinary R: NEGATIVE for significant cough or SOB CV: NEGATIVE for chest pain, palpitations or peripheral edema OBJECTIVE: BP 110/70 Pulse 78 Temp 98.3 ??F (36.8 ??C) (Oral) Ht 5' 4.25 (1.632 m) Wt 113 lb 8 oz (51.5 kg) LMP 06/16/2017 (Exact Date) SpO2 100% BMI 19.33 kg/m2 Body mass index is 19.33 kg/(m^2). LMP 07/19/17. GENERAL: healthy, alert and no distress RESP: lungs clear to auscultation CV: regular rate and rhythm ABDOMEN: generalized tenderness, otherwise soft, no hepatosplenomegaly, no masses, no guarding, and bowel sounds normal MS: no gross musculoskeletal defects noted, no crepitus, step-offs, or bony tenderness SKIN: no suspicious lesions or rashes BACK: no CVA tenderness, no paralumbar tenderness. Tender and tense in rhomboid region Results for orders placed or performed in visit on 07/22/17 CBC with platelets Result Value Ref Range WBC 9.3 4.0 - 11.0 10e9/L RBC Count 4.38 3.8 - 5.2 10e12/L Hemoglobin 14.4 11.7 - 15.7 g/dL Hematocrit 42.3 35.0 - 47.0 % MCV 97 78 - 100 fl MCH 32.9 26.5 - 33.0 pg MCHC 34.0 31.5 - 36.5 g/dL RDW 12.3 10.0 - 15.0 % Platelet Count 254 150 - 450 10e9/L UA reflex to Microscopic Result Value Ref Range Color Urine Yellow Appearance Urine Clear Glucose Urine Negative NEG^Negative mg/dL Bilirubin Urine Negative NEG^Negative Ketones Urine Negative NEG^Negative mg/dL Specific Stover Urine 1.015 1.003 - 1.035 Blood Urine Small (A) NEG^Negative pH Urine 7.5 (H) 5.0 - 7.0 pH Protein Albumin Urine Negative NEG^Negative mg/dL Urobilinogen Urine 0.2 0.2 - 1.0 EU/dL Nitrite Urine Negative NEG^Negative Leukocyte Esterase Urine Trace (A) NEG^Negative Source Midstream Urine Urine Microscopic Result Value Ref Range WBC Urine 2-5 (A) OTO2^O - 2 /HPF RBC Urine O - 2 OTO2^O - 2 /HPF Squamous Epithelial /LPF Urine Moderate (A) FEW^Few /LPF Bacteria Urine Moderate (A) NEG^Negative /HPF ASSESSMENT/PLAN: (R19.7) Diarrhea, unspecified type (primary encounter diagnosis) Comment: 10 episodes of explosive watery diarrhea for past 3 days. Recent antibiotic use, raising concern for CDIFF. Plan: Basic metabolic panel (Ca, Cl, CO2, Creat, Gluc, K, Na, BUN), CBC with platelets, Enteric Bacteria and Virus Panel by AJITH Stool, Clostridium difficile Toxin B PCR, UA reflex to Microscopic, Urine Microscopic, Urine Culture Aerobic Bacterial AWAITING CULTURES - STOOL, CDIFF, URINE (M25.511) Acute pain of right shoulder Comment: Muscle spasm. No IBUPROFEN due to abdominal pain. No Muscle relaxer due to gabapentin Plan: ICE, massage, rest Follow up with PCP if symptoms worsen or fail to improve in 5-7 days Josse Hassan PA-C [facility] documented in this encounter Plan of Treatment Not on filedocumented as of this encounter Procedures Procedure Name Priority Date/Time Associated Diagnosis Comme nts URINE MICROSCOPIC Routine 07/22/2017 2:42 PM Diarrhea, Resu lts for this CDT unspecified type procedure a re in the results section. UA MACROSCOPIC WITH Routine 07/22/2017 2:42 PM Diarrhea, Re sults for this REFLEX TO MICRO CDT unspecified type procedur e are in the results section. URINE CULTURE Routine 07/22/2017 2:42 PM Diarrhea, Results for this CDT unspecified type procedure a re in the results section. BASIC METABOLIC Routine 07/22/2017 2:41 PM Diarrhea, Result s for this PANEL CDT unspecified type procedure a re in the results section. CBC WITH PLATELETS Routine 07/22/2017 2:41 PM Diarrhea, Res ults for this CDT unspecified type procedure a re in the results section. documented in this encounter Results Urine Culture Aerobic Bacterial (07/22/2017 2:42 PM CDT) [facility] gist Method Time Signature Specimen Midstream [place] Description Urine [facility] Culture Micro No growth 07/23/2017 [place] 4:37 PM CDT [facility] Specimen (Source) Anatomical Collection Method Collection Time Re ceived Time Location / / Volume Laterality Examination of 07/22/2017 2:42 07/22/2017 5:07 midstream urine PM CDT PM CDT specimen (procedure) Josse Hassan PA-C LAB - MICRO GENERAL ORDE RABLES Performing Organization Address [facility] Phon e Number [address] [address] [phone] (ABNORMAL) Urine Microscopic (07/22/2017 2:42 PM CDT) Patholo gist Method Time Signature WBC Urine 2-5 (A) OTO2^O - 07/22/2017 [facility] 2 /HPF 3:47 PM CDT [facility] RBC Urine O - 2 OTO2^O - 07/22/2017 [facility] 2 /HPF 3:47 PM CDT [facility] Squamous Moderate (A) FEW^Few 07/22/2017 [place] Epithelial /LPF 3:47 PM CDT [facility] /LPF Urine Bacteria Urine Moderate (A) NEG^Negat 07/22/2017 [place] herrera /HPF 3:47 PM CDT [facility] Specimen Anatomical Collection Method Collection Time Receive d Time (Source) Location / / Volume Laterality 07/22/2017 2:42 PM 7 2:43 CDT PM CDT Josse Hassan PA-C LAB - URINE ORDERABLES Performing Organization Address [facility] Code Phon e Number [address] [address] [phone] (ABNORMAL) UA reflex to Microscopic (07/22/2017 2:42 PM CDT) [facility] gist Method Time Signature Color Urine Yellow 07/22/2017 [facility] 3:47 PM CDT [facility] Appearance Urine Clear 07/22/2017 [facility] 3:47 PM CDT [facility] Glucose Urine Negative NEG^Negat 07/22/2017 [facility] herrera mg/dL 3:47 PM CDT [facility] Bilirubin Urine Negative NEG^Negat 07/22/2017 [facility] herrera 3:47 PM CDT [facility] Ketones Urine Negative NEG^Negat 07/22/2017 [facility] herrera mg/dL 3:47 PM CDT [facility] Specific Stover 1.015 1.003 - 07/22/2017 [facility] Urine 1.035 3:47 PM CDT [facility] Blood Urine Small (A) NEG^Negat 07/22/2017 [facility] herrera 3:47 PM CDT [facility] pH Urine 7.5 (H) 5.0 - 7.0 07/22/2017 [facility] pH 3:47 PM CDT [facility] Protein Albumin Negative NEG^Negat 07/22/2017 [facility] Urine herrera mg/dL 3:47 PM CDT [facility] Urobilinogen 0.2 0.2 - 1.0 07/22/2017 [facility] Urine EU/dL 3:47 PM CDT [facility] Nitrite Urine Negative NEG^Negat 07/22/2017 [facility] herrera 3:47 PM CDT [facility] Leukocyte Trace (A) NEG^Negat 07/22/2017 [facility] Esterase Urine herrera 3:47 PM CDT [facility] Source Midstream 07/22/2017 [facility] Urine 3:47 PM CDT [facility] Specimen (Source) Anatomical Collection Method Collection Time Re ceived Time Location / / Volume Laterality Examination of 07/22/2017 2:42 07/22/2017 2:43 midstream urine PM CDT PM CDT specimen (procedure) Josse Hassan PA-C LAB - URINE ORDERABLES Performing Organization Address City/State/ZIP Code Phon e Number [facility] [address] [place] [address] CBC with platelets (07/22/2017 2:41 PM CDT) P athologist Signature WBC 9.3 4.0 - 11.0 07/22/2017 [facility] 10e9/L 3:21 PM CDT [facility] RBC Count 4.38 3.8 - 5.2 07/22/2017 [facility] 10e12/L 3:21 PM CDT [facility] Hemoglobin 14.4 11.7 - 07/22/2017 [facility] 15.7 g/dL 3:21 PM CDT [facility] Hematocrit 42.3 35.0 - 07/22/2017 [facility] 47.0 % 3:21 PM CDT [facility] MCV 97 78 - 100 07/22/2017 [facility] fl 3:21 PM CDT [facility] MCH 32.9 26.5 - 07/22/2017 [facility] 33.0 pg 3:21 PM CDT [facility] MCHC 34.0 31.5 - 07/22/2017 [facility] 36.5 g/dL 3:21 PM CDT [facility] RDW 12.3 10.0 - 07/22/2017 [facility] 15.0 % 3:21 PM CDT [facility] Platelet Count 254 150 - 450 07/22/2017 [facility] 10e9/L 3:21 PM CDT [facility] Specimen Anatomical Collection Method Collection Time Receive d Time (Source) Location / / Volume Laterality Blood specimen 07/22/2017 2:41 PM 017 2:42 (specimen) CDT PM CDT Josse Hassan PA-C LAB - BLOOD ORDERABLES Performing Organization Address City/State/ZIP Code Phon e Number [facility] [address] [place] [address] Basic metabolic panel (Ca, Cl, CO2, Creat, Gluc, K, Na, BUN) (07/22/2017 2:41 PM CDT) athologist Signature Sodium 141 133 - 144 07/23/2017 [facility] mmol/L 9:32 AM CDT CLIN[facility] Potassium 4.3 3.4 - 5.3 07/23/2017 [facility] mmol/L 9:32 AM CDT [facility] Chloride 108 94 - 109 07/23/2017 [facility] mmol/L 9:32 AM CDT CL[facility] Carbon Dioxide 26 20 - 32 07/23/2017 [facility] mmol/L 9:32 AM CDT [facility] Anion Gap 7 3 - 14 07/23/2017 [facility] mmol/L 9:32 AM CDT [facility] Glucose 93 70 - 99 07/23/2017 [facility] mg/dL 9:32 AM CDT [facility] Urea Nitrogen 9 7 - 30 07/23/2017 [facility] mg/dL 9:32 AM CDT [facility] Creatinine 0.61 0.52 - 07/23/2017 J[facility] 1.04 mg/dL 9:32 AM CDT [facility] GFR Estimate >90 >60 07/23/2017 [facility] mL/min/1.7 9:32 AM CDT CLINICS [address] Comment: Non GFR Calc GFR Estimate If >90 >60 mL/min/1.7m2 07/23/2017 9:32 A M [facility] Black CDT [facility] Comment: GFR Calc Calcium 8.9 8.5 - 10.1 mg/dL 07/23/2017 9:32 AM CDT [facility] Specimen Anatomical Collection Method Collection Time Receive d Time (Source) Location / / Volume Laterality Blood specimen 07/22/2017 2:41 PM 017 2:42 (specimen) CDT PM CDT Josse Hassan PA-C LAB - BLOOD ORDERABLES Performing Organization Address City/State/ZIP Code Phon e Number [facility] [address] [place] [address] documented in this encounter Visit Diagnoses Diagnosis Diarrhea, unspecified type - Primary Acute pain of right shoulder documented in this encounter Additional Health Concerns Assessment Noted Time PHQ-9 Depression Total Score: 13 06/29/2017 2:50 PM CD T documented as of this encounter Care Teams Hull Grinder Relationship Specialty Start Date End Date Viri Gallardo APRN [employer] PCP - General Nurse Practitioner 06/29/17 04/14/20 [id number] [facility] [place] [address] documented as of this encounter"
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
--- OUTSIDE RECORDS SUMMARY | 2022-09-05 18:58 | XMS_ITS | Encounter Summary ---
:1995 Author Organization [place] Address [address] [place] [address] Care Team Providers Name Role Phone Melissa Young MD Primary Care Provider [phone] Viri Gallardo APRN WORKFORCE STAFFING ADVISOR Primary Care Provider [phone] Reason for Visit Reason Comments Fatigue doesn't feel good Encounter Details Date Type Department Care Team Description 06/22/2017 Office Visit [facility] Viri Gallardo bron chitis, unspecified organism (Primary Dx); Clinic Jesu Nicole APRN Wheezing; [address] [place] WORKFORCE STAFFING ADVISOR Urinary tract infection without hematuri a, site unspecified; [address] [facility] Intractable chronic migraine without aura and without status migrainosus [address] [place] [id number] [place] [id number] Social History Tobacco Use Types Packs/Day Years [...] Reading Time Taken Comments Blood Pressure 102/60 06/22/2017 10:38 AM CDT Pulse 84 06/22/2017 10:38 AM CDT Temperature 36.2 ??C (97.1 ??F) 06/22/2017 10:38 AM CDT Respiratory Rate - - Oxygen Saturation 97% 06/22/2017 10:38 AM CDT Inhaled Oxygen Concentration - - Weight 50.3 kg (110 lb 14.4 oz) 06/22/2017 10:38 AM CDT Height 163.2 cm (5' 4.25) 06/22/2017 10:38 AM CDT Body Mass Index 18.89 06/22/2017 10:38 AM CDT documented in this encounter Patient Instructions Patient InstructionsMolitorViri APRN CNP - 06/22/2017 10:20 AM CDT -Emergen C -2L fluid per day -Rest! -Albuterol every 6 hours. documented in this encounter Progress Notes Viri Gallardo APRN CNP - 06/22/2017 10:20 AM CDT SUBJECTIVE: Joel Amos is a 22 year old female who presents to clinic today for the following health issues: Acute Illness Acute illness concerns: doesn't feel well Onset: 1 month ?? Fever: no ?? Chills/Sweats: YES- sweats ?? Headache (location?): YES- migraines for last few days ?? Sinus Pressure:YES ?? Conjunctivitis: no ?? Ear Pain: YES: both ?? Rhinorrhea: YES ?? Congestion: YES ?? Sore Throat: YES ?? Cough: YES-productive of yellow sputum ?? Wheeze: YES ?? Decreased Appetite: no ?? Nausea: YES ?? Vomiting: YES- yesterday ?? Diarrhea: no ?? Dysuria/Freq.: no ?? Fatigue/Achiness: YES- fatigue ?? Sick/Strep Exposure: no Follow up UTI Just started menses Therapies Tried and outcome: ibuprofen: Symptoms not alleviated Migraines are intermittent. Ran out of medicine. Wants refills. No change in pattern or frequency. ROS: const/heent/resp/gu/churner/neuro otherwise negative OBJECTIVE: BP 102/60 Pulse 84 Temp 97.1 ??F (36.2 ??C) (Tympanic) Ht 5' 4.25 (1.632 m) Wt 110 lb 14.4 oz (50.3 kg) LMP 06/16/2017 (Exact Date) SpO2 97% BMI 18.89 kg/m2 CONSTITUTIONAL: Alert, well-nourished, well-groomed, NAD RESP: Lungs with significant wheezing throughout. Much improved after neb. CV: HRRR S1 S2 No MRG. No peripheral edema NEURO: CN II-XII grossly intact. No nystagmus. Speech and mentation appropriate. Normal gait. Romberg negative. GI: Abdomen flat. BS x 4. No TTP. No HSM or masses. No CVAT HEENT: Eyes: Conjunctiva pink and moist. Ears: Ear canals unremarkable. TMs pearly jj bilaterally.Bony landmarks and light reflexes intact. No erythema. Nose: Turbinates pink and moist. Throat: OP pink and moist. No tonsillar enlargement or exudates. No postnasal drip. Neck: No lymphadenopathy or masses. Thyroid smooth, non-tender, and non-enlarged. ASSESSMENT/PLAN: (J20.9) Acute bronchitis, unspecified organism (primary encounter diagnosis) Comment: Patient with acute bronchitis likely secondary to viral URI. She has associated wheezing, which improved dramatically with a neb. No evidence of pneumonia Plan: Patient Instructions -Emergen C -2L fluid per day -Rest! -Albuterol every 6 hours. -F/U 1 week. Discussed reasons to seek care urgently. (R06.2) Wheezing Plan: *UA reflex to Microscopic and Culture ([place] [facility] (except [place] and [place]), INHALATION/NEBULIZER TREATMENT, INITIAL, albuterol (PROAIR HFA/PROVENTIL HFA/VENTOLIN HFA) 108 (90 BASE) MCG/ACT Inhaler, albuterol (ACCUNEB) 1.25 MG/3ML nebulizer solution (N39.0) Urinary tract infection without hematuria, site unspecified Comment: Recent UTI. No dysuria but still having cramping, likely related to menses. Plan: Patient requesting repeat UA. (G43.159) Intractable chronic migraine without aura and without status migrainosus Comment: Stable. Needs refill. Plan: SUMAtriptan (IMITREX) 100 MG tablet Will discuss at OV next week. NATALIE Erickson. documented in this encounter Nursing Notes Aneta Varghese MA - 06/22/2017 10:20 AM CDT Chief Complaint Patient presents with ??? Fatigue doesn't feel good Initial BP 102/60 Pulse 84 Temp 97.1 ??F (36.2 ??C) (Tympanic) Ht 5' 4.25 (1.632 m) Wt 110 lb 14.4 oz (50.3 kg) LMP 06/16/2017 (Exact Date) SpO2 97% BMI 18.89 kg/m2 Estimated body mass index is 18.89 kg/(m^2) as calculated from the following: Height as of this encounter: 5' 4.25 (1.632 m). Weight as of this encounter: 110 lb 14.4 oz (50.3 kg). Medication Reconciliation: complete Aneta Varghese CMA Aneta Varghese MA - 06/22/2017 10:20 AM CDT The following nebulizer treatment was given: MEDICATION: [employer] INDOOR PLANT TECHNICIAN: [employer] LOT #: [id number] EXPIRATION DATE: 10/10/18 [facility] # [id number] Aneta Varghese CMA documented in this encounter Plan of Treatment Not on filedocumented as of this encounter Procedures Procedure Name Priority Date/Time Associated Diagnosis Comme nts URINE MICROSCOPIC Routine 06/22/2017 10:45 Acute bronchitis, R esults for this AM CDT unspecified organism procedu re are in the results section. UA MACROSCOPIC WITH Routine 06/22/2017 10:45 Wheezing Resu lts for this REFLEX TO AM CDT procedure are i n MICROSCOPIC AND the results CULTURE section. documented in this encounter Results (ABNORMAL) Urine Microscopic (06/22/2017 10:45 AM CDT) [facility] Method Time Signature WBC Urine O - 2 OTO2^O - 06/22/2017 [place] 2 /HPF 11:37 AM CDT [facility] RBC Urine 2-5 (A) OTO2^O - 06/22/2017 [place] 2 /HPF 11:37 AM CDT [facility] Squamous Moderate (A) FEW^Few 06/22/2017 [place] Epithelial /LPF 11:37 AM CDT [facility] /LPF Urine Bacteria Urine Moderate (A) NEG^Negat 06/22/2017 [place] herrera /HPF 11:37 AM CDT [facility] Mucous Urine Present (A) NEG^Negat 06/22/2017 [place] herrera /LPF 11:37 AM CDT [facility] Specimen Anatomical Collection Method Collection Time Receive d Time (Source) Location / / Volume Laterality 06/22/2017 10:45 06/22/2017 AM CDT 10:54 AM CDT Viri Gallardo CEMENT GRINDING MILL OPERATOR WORKFORCE STAFFING ADVISOR LAB - URINE ORDERABLES Performing Organization Address City/State/ZIP Code Phon e Number [place] [facility] [address] [place] [address] (ABNORMAL) *UA reflex to Microscopic and Culture ([place] [facility] [place] [facility] (06/22/2017 10:45 AM CDT) [facility] Method Time Signature Color Urine Yellow 06/22/2017 [place] 11:37 AM CLINICS CDT [facility] Appearance Urine Clear 06/22/2017 [place] 11:37 AM CLINICS CDT [facility] Glucose Urine Negative NEG^Negat 06/22/2017 [place] herrera mg/dL 11:37 AM CLINICS CDT [facility] Bilirubin Urine Negative NEG^Negat 06/22/2017 [place] herrera 11:37 AM CLINICS CDT [facility] Ketones Urine Trace (A) NEG^Negat 06/22/2017 [place] herrera mg/dL 11:37 AM CLINICS CDT [facility] Specific [place] 1.020 1.003 - 06/22/2017 [place] Urine 1.035 11:37 AM CLINICS CDT [facility] Blood Urine Moderate (A) NEG^Negat 06/22/2017 [place] herrera 11:37 AM CLINICS CDT [facility] pH Urine 6.5 5.0 - 7.0 06/22/2017 [place] pH 11:37 AM CLINICS CDT [facility] Protein Albumin Negative NEG^Negat 06/22/2017 [place] Urine herrera mg/dL 11:37 AM [facility] CDT [facility] Urobilinogen 1.0 0.2 - 1.0 06/22/2017 [place] Urine EU/dL 11:37 AM CLINICS CDT [facility] Nitrite Urine Negative NEG^Negat 06/22/2017 [place] herrera 11:37 AM [facility] CDT [facility] Leukocyte Negative NEG^Negat 06/22/2017 [place] Esterase Urine herrera 11:37 AM [facility] CDT [facility] Source Midstream 06/22/2017 [place] Urine 11:37 AM [facility] CDT [facility] Specimen (Source) Anatomical Collection Method Collection Time Re ceived Time Location / / Volume Laterality Examination of 06/22/2017 10:45 7 midstream urine AM CDT 10:54 AM CDT specimen (procedure) Viri Gallardo APRN, CNP LAB - URINE ORDERABLES Performing Organization Address City/State/ZIP Code Phon e Number [facility] [address] [facility] [place] [id number] documented in this encounter Visit Diagnoses Diagnosis Acute bronchitis, unspecified organism - Primary Wheezing Urinary tract infection without hematuri a, site unspecified Intractable chronic migraine without aur a and without status migrainosus Chronic migraine without aura, with intr actable migraine, so stated, without mention of status migrainosus documented in this encounter Additional Health Concerns Assessment Noted Time PHQ-9 Depression Total Score: 17 03/03/2017 7:16 AM CD T documented as of this encounter Care Teams Mirror Framer Relationship Specialty Start Date End Date Melissa Young MD PCP - General Family Practice 06/16/17 06/28/17 [address] [place] [address] Viri Gallardo APRN CNP PCP - General Nurse Practitioner 06/29/17 04/14/[address] [facility] [place] [address] documented as of this encounter
--- OUTSIDE RECORDS SUMMARY | 2022-09-05 18:58 | XMS_ITS | Encounter Summary ---
:1995 Author Organization [place] Address [address] [place] [address]. [place] [address] Care Team Providers Name Role Phone Kalin Suh MD Primary Care Provider Reason for Visit Reason Comments ER F/U f/u ER, was seen Gloria Ulrich on 08/01/2017 for urinary symptoms, currently c/o nauseated, vomiting, abd ominal pain and vaginal d/c Encounter Details Date Type Department Care Team Description 06/08/2017 Office Visit [facility], Acute c ystitis with hematuria (Primary Dx); [facility] [place] Melissa Frey MD Nonspecific finding on examination of ur ine; [address] [place] [address] [place]; [place], [place] Nausea [id number] [phone] Social History Tobacco Use Types Packs/Day Years [...] Reading Time Taken Comments Blood Pressure 118/68 06/08/2017 2:33 PM CDT Pulse 111 06/08/2017 2:33 PM CDT Temperature 36.9 ??C (98.4 ??F) 06/08/2017 2:33 PM CDT Respiratory Rate 16 06/08/2017 2:33 PM CDT Oxygen Saturation - - Inhaled Oxygen Concentration - - Weight 52.2 kg (115 lb) 06/08/2017 2:33 PM CDT Height - - Body Mass Index 19.59 06/03/2017 3:07 PM CDT documented in this encounter Patient Instructions Patient InstructionsMelissa Young MD - 06/08/2017 2:15 PM CDT Increase fluids Complete course of antibiotics Follow up as needed documented in this encounter Progress Notes Melissa Young MD - 06/08/2017 2:15 PM CDT SUBJECTIVE: Joel Amos is a 22 year old female who presents to clinic today for the following health issues: Patient presents for follow up of cystitis. No longer has blood but states burning and suprapubic pain seems to be increasing. Also continues to have nausea which is worsened when feeling gassy. Reports a history of gas for many years but seems to be worsening. Denies any blood in urine, fever or chills. Problem list and histories reviewed & adjusted, as indicated. Additional history: as documented Patient Active Problem List Diagnosis ??? Migraine ??? Health Jail ??? Pain in joint, pelvic region and [...] Smokeless tobacco: Never Used ??? Alcohol use No Family History Problem Relation Age of Onset ??? Hypertension Mother ??? DIABETES Maternal Grandmother ??? Hypertension Maternal Grandmother ??? Hypertension Maternal Grandfather ??? DIABETES Maternal Grandfather ??? CANCER Paternal Uncle Reviewed and updated as needed this visit by clinical staffTobacco Allergies Reviewed and updated as needed this visit by Provider ROS: Constitutional, gi and gu systems are negative, except as otherwise noted. OBJECTIVE: BP 118/68 (BP Location: Right arm, Patient Position: Chair, Cuff Size: Adult Regular) Pulse 111 Temp 98.4 ??F (36.9 ??C) (Oral) Resp 16 Wt 115 lb (52.2 kg) LMP 05/18/2017 ? No BMI 19.59 kg/m2 Body mass index is 19.59 kg/(m^2). GENERAL: healthy, alert and no distress RESP: lungs clear to auscultation - no rales, rhonchi or wheezes CV: regular rate and rhythm, normal S1 S2, no S3 or S4, no murmur, click or rub, no peripheral edemaand peripheral pulses strong ABDOMEN: tenderness suprapubic and bowel sounds normal Diagnostic Test Results: Results for orders placed or performed in visit on 06/08/17 Urine Microscopic Result Value Ref Range WBC Urine 10-25 (A) OTO2^O - 2 /HPF RBC Urine 5-10 (A) OTO2^O - 2 /HPF Squamous Epithelial /LPF Urine Many (A) FEW^Few /LPF Bacteria Urine Moderate (A) NEG^Negative /HPF Mucous Urine Present (A) NEG^Negative /LPF Wet prep Result Value Ref Range Specimen Description Vagina Wet Prep No yeast seen Wet Prep No clue cells seen Wet Prep No Trichomonas seen Urine Culture Aerobic Bacterial Result Value Ref Range Specimen Description Midstream Urine Culture Micro 10,000 to 50,000 colonies/mL mixed urogenital jeffery ASSESSMENT/PLAN: 1. Acute cystitis with hematuria - will start on cipro to see if this helps symptoms. - UA reflex to Microscopic and Culture; Future - Urine Microscopic - Wet prep - ciprofloxacin (CIPRO) 500 MG tablet; Take 1 tablet (500 mg) by mouth 2 times daily for 7 days Dispense: 14 tablet; Refill: 0 2. Nonspecific finding on examination of urine - Urine Culture Aerobic Bacterial 3. Gassiness - patient to increase fiber. Simethicone prn. - Simethicone 180 MG CAPS; Take 180 mg by mouth 4 times daily as needed Dispense: 60 capsule; Refill: 0 4. Nausea - ondansetron (ZOFRAN) 4 MG tablet; Take 1 tablet (4 mg) by mouth every 8 hours as needed for nauseaDispense: 30 tablet; Refill: 1 See Patient Instructions Melissa Young MD [facility] documented in this encounter Nursing Notes Nitza Pugh CMA - 06/08/2017 2:15 PM CDT Chief Complaint Patient presents with ??? ER F/U f/u ER, was seen [facility] ER on 08/01/2017 for urinary symptoms, currently c/o nauseated, vomiting, abdominal pain and vaginal d/c Initial BP 118/68 (BP Location: Right arm, Patient Position: Chair, Cuff Size: Adult Regular) Pulse 111 Temp 98.4 ??F (36.9 ??C) (Oral) Resp 16 Wt 115 lb (52.2 kg) LMP 05/18/2017 ? No BMI 19.59 kg/m2 Estimated body mass index is 19.59 kg/(m^2) as calculated from the following: Height as of 06/03/17: 5' 4.25 (1.632 m). Weight as of this encounter: 115 lb (52.2 kg). Medication Reconciliation: complete Nitza Pugh/[facility] documented in this encounter Plan of Treatment Not on filedocumented as of this encounter Procedures Procedure Name Priority Date/Time Associated Diagnosis Comme nts WET PREPARATION Routine 06/08/2017 2:33 PM Acute cystitis with Results for this CDT hematuria procedure are i n the results section. URINE MICROSCOPIC Routine 06/08/2017 2:22 PM Acute cystitis wi th Results for this CDT hematuria procedure are i n the results section. URINE CULTURE Routine 06/08/2017 2:22 PM Nonspecific finding R esults for this CDT on examination of procedure are in urine the results section. documented in this encounter Results Wet prep (06/08/2017 2:33 PM CDT) Patholo gist Method Time Signature Specimen Vagina [facility] Description [facility] Wet Prep No yeast seen 06/08/2017 [facility] 2:46 PM CDT [facility] Wet Prep No clue cells 06/08/2017 [facility] seen 2:46 PM CDT [facility] Wet Prep No Trichomonas 06/08/2017 [facility] seen 2:46 PM CDT [facility] Specimen Anatomical Collection Method Collection Time Receive d Time (Source) Location / / Volume Laterality Specimen from 06/08/2017 2:33 PM 06/08/20 17 2:34 vagina CDT PM CDT (specimen) Melissa Young MD LAB - MICRO GENERAL ORDThuy FINNEY Performing Organization Address City/[facility] Phon e Number [facility] [address] [place] [address] Urine Culture Aerobic Bacterial (06/08/2017 2:22 PM CDT) [facility] gist Method Time Signature Specimen Midstream INFECTIOUS Description Urine [facility]STIC LABORATORY Culture Micro 10,000 to 50,000 colonies/mL 017 INFECTIOUS mixed urogenital jeffery 2:21 PM CDT [facility] Specimen (Source) Anatomical Collection Method Collection Time Re ceived Time Location / / Volume Laterality Examination of 06/08/2017 2:22 06/08/2017 2:36 midstream urine PM CDT PM CDT specimen (procedure) Melissa Young MD LAB - MICRO GENERAL MAME [place]NEY Performing Organization Address City/[facility] Phon e Number INFECTIOUS DISEASES [address] [place] [address] DIAGNOSTIC LABORATORY, [facility] INFECTIOUS DISEASE [address] [place] [address], [facility] DIAGNOSTIC LABORATORY (ABNORMAL) Urine Microscopic (06/08/2017 2:22 PM CDT) Patholo gist Method Time Signature WBC Urine 10-25 (A) OTO2^O - 06/08/2017 [facility] 2 /HPF 2:35 PM CDT [facility] RBC Urine 5-10 (A) OTO2^O - 06/08/2017 [facility] 2 /HPF 2:35 PM CDT [facility] Squamous Many (A) FEW^Few 06/08/2017 [place] Epithelial /LPF 2:35 PM CDT [facility] /LPF Urine [place] Bacteria Urine Moderate (A) NEG^Negat 06/08/2017 [place] herrera /HPF 2:35 PM CDT [facility] Mucous Urine Present (A) NEG^Negat 06/08/2017 [place] herrera /LPF 2:35 PM CDT [facility] Specimen Anatomical Collection Method Collection Time Receive d Time (Source) Location / / Volume Laterality 06/08/2017 2:22 PM 7 2:28 CDT PM CDT Melissa Young MD LAB - URINE ORDERABLES Performing Organization Address City/State/ZIP Code Phon e Number [facility] [address] [place] [address] documented in this encounter Visit Diagnoses Diagnosis Acute cystitis with hematuria - Primary Acute cystitis Nonspecific finding on examination of ur ine Other nonspecific finding on examination of urine [place] Flatulence, eructation, and gas pain Nausea Nausea alone documented in this encounter Additional Health Concerns Assessment Noted Time PHQ-9 Depression Total Score: 17 03/03/2017 7:16 AM CD T documented as of this encounter Care Teams Senior Mortgage Loan Processor Relationship Specialty Start Date End Date Kalin Suh MD PCP - General Family Practice 07/04/16 06/15/17 [address] [place] [address] documented as of this encounter
--- OUTSIDE RECORDS SUMMARY | 2022-09-05 18:58 | XMS_ITS | Encounter Summary ---
:1995 Author Organization [place] Address [facility] [place] [address] Care Team Providers Name Role Phone Kalin Suh MD Primary Care Provider Reason for Visit Reason Comments Clinic Care Coordination - Initial Encounter Details Date Type Department Care Team Description 03/10/2017 Care Coordination [facility] Kalin Suh MD Clinic Care Care Coordination [address] [facility] Coordination - [address] [place] [address] () [facility] [id number] [place] [address] [phone] [address] (Work) [phone] Social History Tobacco Use Types Packs/Day Years [...] documented as of this encounter Progress Notes Tamiko Simons - 03/10/2017 11:31 AM CDT Clinic Care Coordination Contact [facility]/Voicemail Referral Source: PCP Clinical Data: Coordinator Of Evaluation Outreach Outreach attempted x 2. SW is not able to leave a voicemail message as pt does not have a working phone number. Plan: Coordinator Of Evaluation mailed out care coordination introduction letter on 03/02/17. Coordinator Of Evaluation will do no further outreaches at this time. ADRIANO Hodges, [facility] Social Work - Coordinator Of Evaluation [facility] Jesu Zavala and [place] documented in this encounter Plan of Treatment Not on filedocumented as of this encounter Visit Diagnoses Not on filedocumented in this encounter Additional Health Concerns Assessment Noted Time PHQ-9 Depression Total Score: 17 03/03/2017 7:16 AM CD T documented as of this encounter Care Teams Civil Cad Tech Relationship Specialty Start Date End Date Kalin Suh MD PCP - General Family Practice 07/04/16 06/15/17 [address] [place] [address] documented as of this encounter
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
--- OUTSIDE RECORDS SUMMARY | 2022-09-05 18:58 | XMS_ITS | Encounter Summary ---
:1995 Author Organization [facility] Address [address] [place] [address]. [place] [address] Care Team Providers Name Role Phone Kalin Suh MD Primary Care Provider Melissa Young MD Primary Care Provider [phone] Reason for Visit Reason Onset Date Comments Nurse Advice Line 06/15/2017 update Encounter Details Date Type Department Care Team Description 06/15/2017 Telephone [facility] Kalin Suh MD Nurse Advice Line Clinic [address] (update) [address] [place] [phone] Social History Tobacco Use Types Packs/Day [...] this encounter Miscellaneous Notes Telephone Encounter - Farzad Sandoval RN - 06/16/2017 12:17 PM CDT Pt informed. Notes she prefers Dr. W-D as PCP. Chart updated. I keep getting sick and it is not stopping. Now cold symptoms for 5 days. Those (vaginal) infections and now these. She would like an appointment to discuss. Does not want towait to see of cold symptoms Resolve after 10 days. Scheduled. Farzad Sandoval RN Telephone Encounter - Farzad Sandoval RN - 06/15/2017 3:32 PM CDT Left message to call back Farzad Sandoval RN Telephone Encounter - Melissa Young MD - 06/15/2017 3:22 PM CDT Rx for diflucan sent. No need for further Abx at this time. I agree with abstinence for now. Follow up as needed NWD Telephone Encounter - Nolvia Cam RN - 06/15/2017 11:15 AM CDT Pt calls, still has some urinary issues and vaginal discharge, finishes cipro today, making intercourse difficult, discussed, recommend abstinence until infection resolved?, routed to WD, please adviseplan, wonders if needs yeast rx, wet prep negative 06/08, PT WILL CALL back later today for WD input,pt does not have cell phone access temporarily today 1) urinary frequency, denies fever and chills, occasional still gabriel upon urination, denies hematuria, finish cipro today, c/o nausea, pain with intercourse 2) c/o vaginal discharge, white, itchy 3) sneezing and cold sxs, discussed, will try OTC antihistamine, agrees to f/u if sxs worsen or persist, denies breathing issues or fever Nolvia Cam RN, BSN Message handled by Nurse Triage. Telephone Encounter - Farzad Sandoval, RN - 06/15/2017 11:10 AM CDT Pt calls, I have been having xxx for the past 3 weeks. Wind or other background noise. Pt frustrated that I could not hear her and she hung up. Farzad Sandoval, RN documented in this encounter Plan of Treatment Not on filedocumented as of this encounter Visit Diagnoses Diagnosis Leukorrhea - Primary Leukorrhea, not specified as infective documented in this encounter Additional Health Concerns Assessment Noted Time PHQ-9 Depression Total Score: 03/03/2017 7:16 AM CD T documented as of this encounter Care Teams Laboratory Secretary Relationship Specialty Start Date End Date Kalin Suh MD PCP - General Family Practice 07/04/16 06/15/17 [address] [place] [address] Melissa Young MD PCP - General Family Practice 06/16/17 06/28/17 [address] [place] [address] documented as of this encounter
--- OUTSIDE RECORDS SUMMARY | 2022-09-05 18:58 | XMS_ITS | Encounter Summary ---
:1995 Author Organization [place] Address [address] [place] [address] Care Team Providers Name Role Phone Kalin Suh MD Primary Care Provider Encounter Details Date Type Department Care Team Description 07/22/2016 Office Visit [facility] Salinas De León LMF T Moderate bipolar II Services [facility] R disorder, most recent [place] [id number] [facility] episode major [address] [place] [address] depressive (H) [place], [place] [phone] (Wo rk) (Primary Dx) [id number] [phone] Social History Tobacco Use Types Packs/Day Years [...] Progress Notes Salinas De León LMFT - 07/22/2016 1:08 PM CDT Images from the original note were not included. Progress Note Client Name: Joel Amos Date: 07/22/2016 Service Type: Individual Session Start Time: 1:10pm Session End Time: 2pm Session Length: 50 minutes Session #: 4 Attendees: Client attended alone Extended Session (53+ minutes): No Interactive Complexity: Yes, visit entailed Interactive Complexity evidenced by: -Use of play equipment, physical devices, mounter clarinets or liaison officer to overcome barriers to diagnostic or therapeutic interaction with a patient who is not fluent in the same language or who has not developed or lost expressive or receptive language skills to use or understand typical language Crisis: No Treatment Plan Last Reviewed: 07/15/2016 PHQ-9 / FAITH-7 : 07/15/2016 DATA Progress Since Last Session (Related to [...] led to history of self-cutting Client reports the past week has been going well for her. Her daughters were sick and she had to interact with her ex which resulted in an argument. Client reports that her ex had critique about her being selfish and although it was difficult to hear, it is something the client would like to work on. Today client staged her first sandtray which she titled life. Client displayed a lion with its backturned to a car, her daughters in the center with a sea shell, a mirror and a bride and groom layingflat. Client discussed her desire for a healthy marriage, but reports she has doubts about her viewsof such a commitment because of her family history. Client aspires to be the lion, but does not feel she is the lion right now, but rather a work in progress. Treatment Objective(s) Addressed in This Session: maintain sobriety from alcohol identify 2 signs or signals of emerging mood instability Identify negative self-talk and behaviors: challenge core beliefs, myths, and actions identify the time in your life when you began to feel poorly about themselves Intervention: CBT: behavioral chain analysis, identifying patterns, triggers Solution Focused: miracle question: clients goals for her near future and beyond Structural: defining and establishing healthy interpersonal relationships Sandtray: client reflected and processed presenting problems for seeking therapy ASSESSMENT: Current Emotional / Mental Status (status [...] consented to co-developed safety plan, which includes FCC safety plan which can be found in client's chart titles patient instructions. Appearance: Appropriate Eye Contact: Good Psychomotor Behavior: Restless Attitude: Cooperative Orientation: All Speech Rate / Production: Normal Volume: Normal Mood: Depressed Affect: Appropriate Thought Content: Clear Thought Form: Coherent Goal Directed Circumstantial Insight: Fair Medication Review: No changes to current psychiatric medication(s) Medication Compliance: Yes Changes in Health Issues: None reported Chemical Use Review: Substance Use: decrease in alcohol and cannabis . Client reports frequency of use no use of alcohol, use of cannabis as 2 hits during the past 2 weeks. Reviewed information and resources for treatment and [...] / Therapist Tasks / Other) Client will reflect on today's sandtray to review next session. ADRIANA Palacios, ADMIRALTY LAWYER Treatment Plan Client's Name: Joel Amos Date [...] Therapist will assign homework to identify escalation/triggers, [id number], stressors teach the client how to perform a behavioral chain analysis. start implementing operant conditioningfor desired behavioral patterns. Objective #B Identify two areas of life that you would like to have improved functioning. 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 mindfulness, relaxation skills, deep breathing skills, [id number] Client has reviewed and agreed to the above plan. 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
--- OUTSIDE RECORDS SUMMARY | 2022-09-05 18:58 | XMS_ITS | Encounter Summary ---
:1995 Author Organization [place] Address [address] [place] [address] Care Team Providers Name Role Phone Kalin Suh MD Primary Care Provider Reason for Visit Reason Comments Vaginal Bleeding Encounter Details Date Type Department Care Team Description 06/01/2017 Emergency [facility] Otoniel Wilcox Cla, MD Acute cystitis with [facility] Emergency Dep t [facility] hematuria [address] [place], [place] [address] [facility] [address] [place] [address] [phone] (Wo rk) Social History Tobacco Use Types [...] Sign Reading Time Taken Comments Blood Pressure 127/83 06/01/2017 6:44 Simultaneous elizabeth ing. PM CDT User may not hav e seen previous data. Pulse 78 06/01/2017 6:44 PM CDT Temperature 36.8 ??C (98.2 ??F) 06/01/2017 6:44 PM CDT Respiratory Rate 20 06/01/2017 6:44 PM CDT Oxygen Saturation 100% 06/01/2017 6:46 PM CDT Inhaled Oxygen - - Concentration Weight - - Height - - Body Mass Index - - documented in this encounter Discharge Instructions Discharge InstructionsOtoniel Wilcox MD - 06/01/2017 7:59 PM CDT Images from the original note [...] if there is anything that worries you. Blood in the Urine Blood in the urine (hematuria) has many possible causes. If it occurs after an injury (such as a caraccident or fall), it is most often a sign of bruising to the kidney or bladder. Common causes of blood in the urine include urinary tract infections, kidney stones, inflammation, tumors, or certain other diseases of the kidney or bladder. Menstruation can cause blood to appear in the urine sample, although it is not coming from the urinary tract. If only a trace amount of blood is present, it will show up on the urine test, even though the urinemay be yellow and not pink or red. This may occur with any of the above conditions, as well as heavyexercise or high fever. In this case, your doctor may want to repeat the urine test on another day. This will show if the blood is still present. If it is, then other tests can be done to find out the cause. Home care Follow these home care guidelines: ?? If your urine does not appear bloody (pink, brown or red) then you do not need to restrict your activity in any way. ?? If you can see blood in your urine, rest and avoid heavy exertion until your next exam. Do not use aspirin, blood thinners, or anti-platelet or anti- inflammatory medicines. These include ibuprofen and naproxen. These thin the blood and may increase bleeding. Follow-up care Follow up with your healthcare provider, or as advised. If you were injured and had blood in your urine, you should have a repeat urine test in 1 to 2 days. Contact your doctor for this test. A radiologist will review any X-rays that were taken. You will be told of any new findings that may affect your care. When to seek medical advice Call your healthcare provider right away if any of these occur: ?? Bright red blood or blood clots in the urine (if you did not have this before) ?? Weakness, dizziness or fainting ?? New groin, abdominal, or back pain ?? Fever of 100.4??F (38??C) or higher, or as directed by your healthcare provider ?? Repeated vomiting ?? Bleeding from the nose or gums or easy bruising Date Last Reviewed: 06/11/2016 ?? [id number] [employer]. [address] [place] [address]. All rights reserved. This information is not intended as a substitute for professional medical care. Always follow your healthcare professional's instructions. documented in this encounter Medications at Time of Discharge Medication Sig Dispensed Refills Start Date End Date cefuroxime (CEFTIN) 250 Take 1 tablet (250 14 tablet 0 05/1206/08/2017 MG tablet mg) by mouth 2 times daily for 7 days FLUoxetine HCl (PROZAC 0 PO) levonorgestrel (MIRENA) 1 each by 0 0 04/07/2018 20 MCG/24HR IUD Intrauterine route once Vit-Fe Take 1 tablet by 0 12/07/2014 Fumarate-FA ( mouth Take 1 tablet MULTIVITAMIN PLUS IRON) by mouth 27-0.8 MG TABS per tablet documented as of this encounter ED Notes Sheila Slaughter - 06/01/2017 6:03 PM CDT Pt voided pink- tinged urine into a UA cup. Her previous void was red/ brown colored urine. Pt states she feels better. Pt also had water to drink. Post void bladder scan - 19mls. Sheila Slaughter - 06/01/2017 5:56 PM CDT Bladder Scan 20 mins post-void - 194mls Brii Luevano RN - 06/01/2017 5:45 PM CDT Patient is drinking water and eating mashed potatoes. Mila Rubio RN - 06/01/2017 3:44 PM CDT A&Ox3, ABC's intact Pt states that she hasn't been able to empty bladder for 4 days and she believes she is urinating blood or having bleeding vaginal unsure where it's coming from per pt, pt also fatigued/sore throat. PMH: Denies Meds; Epic up to date Otoniel Wilcox MD - 06/01/2017 3:37 PM CDT History Chief Complaint: Vaginal Bleeding The history is provided by the patient. Joel Amos is a 22 year old female who presents to the emergency department today for evaluation of possible vaginal bleeding. The patient reports she has been unable to fully empty her bladder in the past 4 days and she began experiencing either hematuria or vaginal bleeding yesterday and today. She is unsure whether the blood is coming from her vagina or from when she urinates. She had aMirena IUD placed in 2014 after the of her twins and since then she has not kept track of, or noticed, any regular periods. She believes her last menstrual cycle was 2 weeks ago. She notes that she has never experienced bleeding like this before, and with the bleeding she has had a almost burning pelvic pain. She also endorses some nausea, chills, sore throat, and fatigue. She has not had a recent bowel movement. She denies any fever, rash, bleeding in mouth, vomiting, abdominal pain, history of kidney stones, or other medical concerns. Allergies: No Known Drug Allergies Medications: Prozac Mirena Past Medical History: Anxiety Depression Marijuana dependence Migraines Moderate episode of recurrent major depressive disorder Past Surgical History: Surgical history reviewed. No pertinent surgical history. Family History: Mother: Hypertension Maternal Grandmother: Diabetes, Hypertension Maternal Grandfather: Hypertension, Diabetes Paternal Uncle: Cancer Social History: Presents with mother and significant other Tobacco use: Some day smoker Alcohol use: Yes PCP: Kalin Suh Marital Status: Single Review of Systems Constitutional: Positive for chills and fatigue. Negative for fever. HENT: Positive for sore throat. Negative for mouth sores. Eyes: Negative for pain and visual disturbance. Respiratory: Negative for cough and shortness of breath. Gastrointestinal: Positive for nausea. Negative for abdominal pain and vomiting. Genitourinary: Positive for decreased urine volume, difficulty urinating, dysuria, hematuria, pelvicpain and vaginal bleeding. Skin: Negative for rash. All other systems reviewed and are negative. Physical Exam Vitals: Patient Vitals for the past 24 hrs: BP Temp Temp src Pulse Resp SpO2 06/01/17 1844 127/83 98.2 ??F (36.8 ??C) Oral 78 20 99 % 06/01/17 1545 124/88 97.6 ??F (36.4 ??C) Oral 102 20 99 % Physical Exam General: Resting comfortably Head: Scalp, face, and head appear normal Eyes: Pupils are equal, round, and reactive to light No nystagmus Conjunctivae non-injected and sclerae white ENT: The external nose is normal Pinnae are normal The oropharynx is normal, mucous membranes moist Uvula is in the midline Neck: Normal range of motion There is no rigidity noted Trachea is in the midline CV: Regular rate and rhythm Normal S1/S2, no S3/S4 No murmur or rub Resp: Lungs are clear and equal bilaterally There is no tachypnea No increased work of breathing No rales, wheezing, or rhonchi GI: Abdomen is soft, no rigidity or guarding. Moderate suprapubic tenderness to palpation. No CVA tenderness No distension, or mass No rebound tenderness : Normal external female genitalia without rash or lesions. Vaginal mucosa normal. Cervical os closed without discharge or bleeding. No cervical lesions. MS: Normal muscular tone Symmetric motor strength No lower extremity edema Skin: No rash or acute skin lesions noted Neuro: Awake and alert Speech is normal and fluent Moves all extremities spontaneously Psych: Normal affect. Appropriate interactions. Emergency Department Course Imaging: Radiology findings were communicated with the patient who voiced understanding of the findings. Retroperitoneal US IMPRESSION: Normal renal ultrasound. Procedures: The patient had a pelvic exam performed here in the emergency department, which she tolerated without difficulty. This was done in the presence of a female narrow fabric calenderer. Laboratory: CBC: WBC 23.0 (H), o/w WNL (HGB 15.6, PLT 282) BMP: Glucose 106 (H), o/w WNL (Creatinine 0.64) UA: Ketone 20 (A), Blood Large (A), Protein Albumin 100 (A), Leukocyte Esterase Moderate (A), WBC/HPF >182 (H), RBC/HPF >182 (H), WBC Clumps Present (A), Bacteria Moderate (A), Squamous Epithelial/HPF 10 (H), Mucous Urine Present (A), o/w Negative HCG Urine: Negative Wet Prep: Vaginal: Few PMNs seen. No yeast seen. No clue cells seen. No Trichomonas seen Chlamydia trachomatis PCR: Pending Neisseria gonorrhea: Pending Interventions: 1654: Zofran-ODT 4 mg PO Emergency Department Course: Past medical records, nursing notes, and vitals reviewed. 1742: I performed an exam of the patient and obtained history, as documented above. 1754: I performed a pelvic exam as noted above. 1999: I rechecked the patient. Findings and plan explained to the Patient. Patient discharged home with instructions regarding supportive care, medications, and reasons to return. The importance of close follow-up was reviewed. I personally reviewed the laboratory results with the Patient and answered all related questions prior to discharge. Impression & Plan Medical Decision Making: Joel Amos is a 22 year old female presenting with hematuria versus vaginal bleeding. Based onpatient's history, sounds like this is predominately hematuria with pelvic pain, however, patient cannot be completely certain of this. She also feels like she is not completely emptying her bladder. Di fferential diagnosis includes cystitis, kidney or bladder stone, obstructive mass or clot in the bladder. Pelvic etiology is also considered including vaginal bleeding, last menstrual period was normal. Plan: UA, laboratory studies, renal US, pelvic exam. Pelvic exam was performed and there was no trace of blood in the vaginal vault or coming from the cervix therefore patient's presentation seems consistent for hematuria. US results were normal. UA consistent with likely cystitis which we will treatthe patient with cefuroxime. The patient was instructed to follow-up with PCP for repeat testing forclearance of hematuria. Return precautions were provided and patient was discharged in stable condition. Diagnosis: ICD-10-CM 1. Acute cystitis with hematuria N30.01 Disposition: Discharged home with plan as outlined above. Discharge Medications: New Prescriptions CEFUROXIME (CEFTIN) 250 MG TABLET Take 1 tablet (250 mg) by mouth 2 times daily for 7 days Scribe Disclosure: Garfield Shaikh [facility] EMERGENCY DEPARTMENT I, Garfield Shaikh, am serving as a scribe at 5:43 PM on 06/01/2017 to document services personally performed by Otoniel Wilcox MD based on my observations and the provider's statements to me. Otoniel Wilcox MD 06/02/17 0053 documented in this encounter Plan of Treatment Not on filedocumented as of this encounter Procedures Procedure Name Priority Date/Time Associated Comments Diagnosis US RENAL COMPLETE STAT 06/01/2017 7:15 PM Resu lts for this NON-VASCULAR CDT procedure are i n the results section. WET PREPARATION STAT 06/01/2017 6:36 PM Result s for this CDT procedure are i n the results section. NEISSERIA GONORRHOEAE STAT 06/01/2017 6:36 PM Acute cystiti s with Results for this PCR CDT hematuria procedure are i n the results section. CHLAMYDIA TRACHOMATIS STAT 06/01/2017 6:36 PM Acute cystiti s with Results for this PCR CDT hematuria procedure are i n the results section. CBC WITH PLATELETS & STAT 06/01/2017 6:20 PM R esults for this DIFFERENTIAL CDT procedure are i n the results section. BASIC METABOLIC PANEL STAT 06/01/2017 6:20 PM Results for this CDT procedure are i n the results section. HCG QUALITATIVE URINE STAT 06/01/2017 5:05 PM Results for this CDT procedure are i n the results section. ROUTINE UA WITH STAT 06/01/2017 5:05 PM Result s for this MICROSCOPIC CDT procedure are i n the results section. documented in this encounter Results Retroperitoneal US (06/01/2017 7:15 PM CDT) Anatomical Region Laterality Modality Abdomen/Pelvis Ultrasound Specimen (Source) Anatomical Location Collection Method / Collectio n Time Received Time / Laterality Volume Impressions 06/01/2017 7:59 PM CDT IMPRESSION: Normal renal ultrasound. PATRICK MAE MD Narrative 06/01/2017 7:59 PM CDT US RENAL COMPLETE 06/01/2017 7:15 PM HISTORY: Hematuria, incomplete emptying, include pre and post void images, evaluate for bladder clots. TECHNIQUE: Renal ultrasound. COMPARISON: Abdominal ultrasound dated . FINDINGS: Both kidneys are normal in siz e, shape, and echotexture. The right kidney measures 10.7 x 3.9 x 4.9 c m with AP cortical thickness of 1.2 cm. The left kidney measures 10.6 x 6.4 x 5.9 cm with AP cortical thickness of 2.3 cm. There is n o cystic or solid masses. The bladder is normal in appearance with pre -voided volume of 71 mL and post-voided volume of 4.3 mL. Procedure Note Patrick Mae MD - 06/01/2017Form atting of this note might be different from the original. US RENAL COMPLETE 06/01/2017 7:15 PM HISTORY: Hematuria, incomplete emptying, include pre and post void images, evaluate for bladder clots. TECHNIQUE: Renal ultrasound. COMPARISON: Abdominal ultrasound dated . FINDINGS: Both kidneys are normal in siz e, shape, and echotexture. The right kidney measures 10.7 x 3.9 x 4.9 c m with AP cortical thickness of 1.2 cm. The left kidney measures 10.6 x 6.4 x 5.9 cm with AP cortical thickness of 2.3 cm. There is n o cystic or solid masses. The bladder is normal in appearance with pre -voided volume of 71 mL and post-voided volume of 4.3 mL. IMPRESSION: Normal renal ultrasound. PATRICK MAE MD Otoniel Wilcox MD IMG US ORDERABLES Neisseria gonorrhoea PCR (06/01/2017 6:36 PM CDT) Analysis Performed At Patho logist Time Signature Specimen Vagina 06/01/2017 [facility] Descrip 6:47 PM CDT [facility] N Gonorrhea Negative NEG^Negati 06/02/2017 [facility] ve 1:55 PM CDT [facility] Comment: Negative for N. gonorrhoeae rRNA by hernandez scription mediated amplification. A negative result by embossing calender operator media lainey amplification does not preclude the presence of N. gonorrhoeae infection because results are dependent on proper and adequate collection, absence of inhibitors, and sufficient rRNA to be detected. Specimen Anatomical Collection Method Collection Time Receive d Time (Source) Location / / Volume Laterality Specimen from 06/01/2017 6:36 PM 06/01/20 17 6:47 vagina CDT PM CDT (specimen) Otoniel Wilcox MD LAB - MICRO GENERAL ORDERABL ES Performing Organization Address City/[facility] Phon e Number [address] [place] [id number] [facility] [phone] Chlamydia trachomatis PCR (06/01/2017 6:36 PM CDT) [facility] [employer] Method Time Signature Specimen Vagina 06/01/2017 [facility] Description 6:47 PM T [facility] Chlamydia Negative NEG^Negat 06/02/2017 [facility] Trachomatis PCR herrera 1:55 PM CDT [facility] Comment: Negative for C. trachomatis rRNA by hernandez scription mediated amplification. A negative result by embossing calender operator media lainey amplification does not preclude the presence of C. trachomatis infection because results are dependent on proper and adequate collection, absence of inhibitors, and sufficient rRNA to be detected. Specimen Anatomical Collection Method Collection Time Receive d Time (Source) Location / / Volume Laterality Specimen from 06/01/2017 6:36 PM 06/01/20 17 6:47 vagina CDT PM CDT (specimen) Otoniel Wilcox MD LAB - MICRO GENERAL ORDERABL ES Performing Organization Address City/[facility] Phon e Number [id number] [place] [address] [address] [place], [place] [address] [facility] [phone] Wet prep (06/01/2017 6:36 PM CDT) [facility] [employer] Method Time Signature Specimen Vagina [facility] Description [facility] Wet Prep Few 06/01/2017 [facility] PMNs seen 6:51 PM [facility] Wet Prep No yeast seen 06/01/2017 [facility] 6:51 PM [facility] Wet Prep No clue cells 06/01/2017 [facility] seen 6:51 PM [facility] Wet Prep No Trichomonas 06/01/2017 [facility] seen 6:51 PM [facility] Specimen Anatomical Collection Method Collection Time Receive d Time (Source) Location / / Volume Laterality Specimen from 06/01/2017 6:36 PM 06/01/20 17 6:47 vagina CDT PM CDT (specimen) Otoniel Wilcox MD LAB - MICRO GENERAL ORDERABL ES Performing Organization Address City/State/ZIP Code Phon e Number [facility] [address] [address] [place], [place] [address] [facility] [address] [phone] (ABNORMAL) CBC with platelets differential (06/01/2017 6:20 PM CDT) [facility] Method Time Signature WBC 23.0 (H) 4.0 - 06/01/2017 [facility] 11.0 6:38 PM [facility] 10e9/L [facility] RBC Count 4.82 3.8 - 5.2 06/01/2017 [facility] 10e12/L 6:38 PM [facility] Hemoglobin 15.6 11.7 - 06/01/2017 [facility] 15.7 g/dL 6:38 PM [facility] Hematocrit 47.0 35.0 - 06/01/2017 [facility] 47.0 % 6:38 PM [facility] MCV 98 78 - 100 06/01/2017 [facility] fl 6:38 PM [facility] MCH 32.4 26.5 - 06/01/2017 [facility] 33.0 pg 6:38 PM [facility] MCHC 33.2 31.5 - 06/01/2017 [facility] 36.5 g/dL 6:38 PM [facility] RDW 12.8 10.0 - 06/01/2017 [facility] 15.0 % 6:38 PM [facility] Platelet Count 282 150 - 450 06/01/2017 [facility] 10e9/L 6:38 PM [facility] Diff Method Automated 06/01/2017 [facility] Method 6:38 PM [facility] % Neutrophils 80.7 % 06/01/2017 [facility] 6:38 PM [facility] % Lymphocytes 10.5 % 06/01/2017 [facility] 6:38 PM [facility] % Monocytes 7.2 % 06/01/2017 [facility] 6:38 PM [facility] % Eosinophils 0.7 % 06/01/2017 [place] 6:38 PM [facility] % Basophils 0.4 % 06/01/2017 [place] 6:38 PM [facility] % Immature 0.5 % 06/01/2017 [place] Granulocytes 6:38 PM [facility] Nucleated RBCs 0 0 /100 06/01/2017 [place] 6:38 PM [facility] Absolute 18.5 (H) 1.6 - 8.3 06/01/2017 [place] Neutrophil 10e9/L 6:38 PM [facility] Absolute 2.4 0.8 - 5.3 06/01/2017 [place] Lymphocytes 10e9/L 6:38 PM [facility] Absolute 1.7 (H) 0.0 - 1.3 06/01/2017 [place] Monocytes 10e9/L 6:38 PM [facility] Absolute 0.2 0.0 - 0.7 06/01/2017 [place] Eosinophils 10e9/L 6:38 PM [facility] Absolute 0.1 0.0 - 0.2 06/01/2017 [place] Basophils 10e9/L 6:38 PM [facility] Abs Immature 0.1 0 - 0.4 06/01/2017 [place] Granulocytes 10e9/L 6:38 PM [facility] Absolute 0.0 06/01/2017 [place] Nucleated RBC 6:38 PM [facility] Specimen Anatomical Collection Method Collection Time Receive d Time (Source) Location / / Volume Laterality Blood specimen 06/01/2017 6:20 PM 017 6:34 (specimen) CDT PM CDT Otoniel Wilcox MD LAB - BLOOD ORDERABLES Performing Organization Address City/State/ZIP Code Phon e Number [facility] [address] [place], [place] [address] [facility] [address] [address] [phone] (ABNORMAL) Basic metabolic panel (06/01/2017 6:20 PM CDT) athologist Signature Sodium 137 133 - 144 06/01/2017 [facility] mmol/L 6:54 PM [facility] Potassium 4.1 3.4 - 5.3 06/01/2017 [place] mmol/L 6:54 PM [facility] Chloride 102 94 - 109 06/01/2017 [place] mmol/L 6:54 PM [facility] Carbon Dioxide 30 20 - 32 06/01/2017 [place] mmol/L 6:54 PM [facility] Anion Gap 5 3 - 14 06/01/2017 [place] mmol/L 6:54 PM [facility] Glucose 106 (H) 70 - 99 06/01/2017 [place] mg/dL 6:54 PM [facility] Urea Nitrogen 9 7 - 30 06/01/2017 [place] mg/dL 6:54 PM [facility] Creatinine 0.64 0.52 - 06/01/2017 [place] 1.04 mg/dL 6:54 PM [facility] GFR Estimate >90 >60 06/01/2017 [place] mL/min/1.7 6:[address] Comment: Non GFR Calc GFR Estimate If >90 >60 mL/min/1.7m2 06/01/2017 6:54 P [facility] Comment: GFR Calc Calcium 9.5 8.5 - 10.1 mg/dL 06/01/2017 6:54 PM [facility] Specimen Anatomical Collection Method Collection Time Receive d Time (Source) Location / / Volume Laterality Blood specimen 06/01/2017 6:20 PM 017 6:34 (specimen) CDT PM CDT Otoniel Wilcox MD LAB - BLOOD ORDERABLES Performing Organization Address City/State/ZIP Code Phon e Number [facility] [address] [place], [place] [address] [facility] [address] [phone] HCG qualitative urine (06/01/2017 5:05 PM CDT) athologist Signature HCG Qual Urine Negative NEG^Negati 06/01/2017 [place] ve 5:45 PM [facility] Comment: This test is for screening purposes. ??R esults should be interpreted along with the clinical picture. ??Confirmation te sting is available if warranted by ordering [id number], HCG Quantitative Pregna ncy. Specimen Anatomical Collection Method Collection Time Receive d Time (Source) Location / / Volume Laterality Urine specimen URINE SPECIMEN 06/01/2017 5:05 PM 06/01 5:24 (specimen) OBTAINED BY CLEAN CDT PM CDT CATCH PROCEDURE / Unknown Viri Patel PA-C LAB - URINE ORDERABLES Performing Organization Address City/State/ZIP Code Phon e Number [facility] [address] [place] [address] [facility] [address] [phone] (ABNORMAL) UA with Microscopic (06/01/2017 5:05 PM CDT) [facility] Method Time Signature Color Urine Red 06/01/2017 [place] 5:45 PM [facility] Appearance Urine Cloudy 06/01/2017 [place] 5:45 PM [facility] Glucose Urine Negative NEG^Negat 06/01/2017 [place] herrera mg/dL 5:47 PM [facility] Bilirubin Urine Negative NEG^Negat 06/01/2017 [place] herrera 5:47 PM [facility] Ketones Urine 20 (A) NEG^Negat 06/01/2017 [place] herrera mg/dL 5:47 PM [facility] Specific [place] 1.020 1.003 - 06/01/2017 [place] Urine 1.035 5:47 PM [facility] Blood Urine Large (A) NEG^Negat 06/01/2017 [place] herrera 5:45 PM [facility] pH Urine 5.0 5.0 - 7.0 06/01/2017 [place] pH 5:47 PM [facility] Protein Albumin 100 (A) NEG^Negat 06/01/2017 [place] Urine herrera mg/dL 5:47 PM [facility] Urobilinogen 0.0 0.0 - 2.0 06/01/2017 [place] mg/dL mg/dL 5:47 PM [facility] Nitrite Urine Negative NEG^Negat 06/01/2017 [place] herrera 5:47 PM [facility] Leukocyte Moderate (A) NEG^Negat 06/01/2017 [place] Esterase Urine herrera 5:47 PM [facility] Source Midstream 06/01/2017 [place] Urine 5:24 PM [facility] WBC Urine >182 (H) 0 - 2 06/01/2017 [place] /HPF 5:47 PM [facility] RBC Urine >182 (H) 0 - 2 06/01/2017 [facility] /HPF 5:47 PM [facility] WBC Clumps Present (A) NEG^Negat 06/01/2017 [place] herrera /HPF 5:47 PM [facility] Bacteria Urine Moderate (A) NEG^Negat 06/01/2017 [place] herrera /HPF 5:47 PM [facility] Squamous 10 (H) 0 - 1 06/01/2017 [place] Epithelial /HPF /HPF 5:47 PM [facility] Mucous Urine Present (A) NEG^Negat 06/01/2017 [place] herrera /LPF 5:47 PM [facility] Specimen (Source) Anatomical Collection Method Collection Time Re ceived Time Location / / Volume Laterality Examination of URINE SPECIMEN 06/01/2017 5:05 06/01/20 17 5:24 midstream urine OBTAINED BY CLEAN PM [facility] specimen CATCH PROCEDURE / (procedure) Unknown Viri Patel PA-C LAB - URINE ORDERABLES Performing Organization Address City/State/ZIP Code Phon e Number [place] [address] [address] [place] [address] [phone] documented in this encounter Visit Diagnoses Diagnosis Acute cystitis with hematuria Acute cystitis documented in this encounter Administered Medications Inactive Administered Medications - up to 3 most recent administrations Medication Order MAR Action Action Date Dose Rate Site ondansetron (ZOFRAN-ODT) ODT tab 4 Given 06/01/2017 4:55 PM CDT 4 mg mg 4 mg, Oral, ONCE, On Wed06/01/17 at 1653, For 1 dose, With dry hands, peel back foil backing and gently remove tablet; do not push oral disintegrating tablet through foil backing; administer immediately on tongue and oral disintegrating tablet dissolves in seconds; then swallow with saliva; liquid not required. documented in this encounter Active and Recently Administered Medications Times are shown in CDT. Scheduled Medication Order 05/30/2017 05/31/2017 06/01/2017 ondansetron (ZOFRAN-ODT) ODT tab 4 mg (COMPLETED) 1655 (Given - Provider: Brii Luevano RN) 4 mg, Oral, ONCE, 06/01/17 at 1653, F or 1 dose, With dry hands, peel back foil backing and gently remove tablet; do not push oral disintegrating tablet through foil backing; administer immediately on tongue and oral disintegrating tablet d issolves in seconds; then swallow with saliva; liquid not required. documented in this encounter Additional Health Concerns Assessment Noted Time PHQ-9 Depression Total Score: 17 03/03/2017 7:16 AM CD T documented as of this encounter Care Teams Academic Coach Relationship Specialty Start Date End Date Kalin Suh MD PCP - General Family Practice 07/04/16 06/15/17 [address] [place] [address] documented as of this encounter
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
--- OUTSIDE RECORDS SUMMARY | 2022-09-05 18:58 | XMS_ITS | Encounter Summary ---
:1995 Author Organization [place] Address [address] [place] [address]. [place] [address] Care Team Providers Name Role Phone Kalin Suh MD Primary Care Provider Tamiko Simons COIL SPRING ASSEMBLER Unavailable Reason for Visit Reason Comments Clinic Care Coordination - Initial Encounter Details Date Type Department Care Team Description 03/02/2017 Care Coordination [facility] Kalin Suh MD Clinic Care Care Coordination [address] [facility] Coordination - [address] [place] [address] () [facility] [id number] [place] [address] [phone] (Work) [phone] Social History Tobacco Use Types Packs/Day Years [...] this encounter Progress Notes Tamiko Simons - 03/02/2017 1:16 PM CDT Clinic Care Coordination Contact [facility]/Voicemail Referral Source: PCP Clinical Data: Academic Counselor Outreach Outreach attempted x 1. Unable to leave a message for pt or pt's mother as their contact informationlisted is not correct. Plan: Academic Counselor mailed out care coordination introduction letter on 03/02/17. Academic Counselor will try to reach patient again in 3-5 business days. ADRIANO Hodges, [facility] Social Work - Academic Counselor [facility]Jesu diez and [place] documented in this encounter Plan of Treatment Not on filedocumented as of this encounter Visit Diagnoses Not on filedocumented in this encounter Additional Health Concerns Assessment Noted Time PHQ-9 Depression Total Score: 17 03/03/2017 7:16 AM CD T documented as of this encounter Care Teams Career Developer Relationship Specialty Start Date End Date Kalin Suh MD PCP - General Family Practice 07/04/16 06/15/17 [address] [place] [address] Tamiko Simons MSW Area Director 03/02/17 03/09/17 documented as of this encounter
--- OUTSIDE RECORDS SUMMARY | 2022-09-05 18:58 | XMS_ITS | Encounter Summary ---
:1995 Author Organization [place] Address [address] [place] [address]. [place] [address] Care Team Providers Name Role Phone Daniel [facility] Primary Care Provider [phone] Reason for Visit Reason Onset Date Comments Panel Management 06/19/2016 Encounter Details Date Type Department Care Team Description 06/19/2016 Telephone [facility] Bianca Suh MD Panel Management [address] [phone] Social History Tobacco Use Types Packs/Day Years [...] this encounter Miscellaneous Notes Telephone Encounter - Gabi Whitfield CMA - 06/19/2016 9:04 AM CDT Panel Management Review Patient has the following on her problem list: Depression / Dysthymia review PHQ-9 SCORE 06/02/2016 06/16/2016 Total Score 18 15 Patient is due for: DAP Composite cancer screening Chart review shows that this patient is due/due soon for the following None Summary: Patient is due/failing the following: DAP Action needed: Complete DAP and Migraine Action Plan Type of outreach: DAP and Migraine Action Plan complete Questions for provider review: None Gabi Whitfield CMA Chart routed to Care Team . documented in this encounter Plan of Treatment Not on filedocumented as of this encounter Visit Diagnoses Diagnosis Migraine - Primary Migraine, unspecified, without mention o f intractable migraine without mention of status migrainosus Moderate episode of recurrent major depr essive disorder (H) documented in this encounter Additional Health Concerns Assessment Noted Time PHQ-9 Depression Total Score: 15 06/17/2016 7:20 AM CD T documented as of this encounter Care Teams Lithographed Plate Inspector Relationship Specialty Start Date End Date [facility], [facility] PCP - General 12/26/14 07/03/16 [address] [place] [address] documented as of this encounter
--- OUTSIDE RECORDS SUMMARY | 2022-09-05 18:58 | XMS_ITS | Encounter Summary ---
:1995 Author Organization [place] Address [address] [place] [address] Care Team Providers Name Role Phone Kalin Suh MD Primary Care Provider Reason for Visit Reason Comments RECHECK pleurisy- slight improvement Encounter Details Date Type Department Care Team Description 11/02/2016 Office Visit [facility] Kalin Suh MD Painful respiration (Primary Dx); Clinic [address] Rib pain [id number] [place] [phone] Social History Tobacco Use Types Packs/Day Years [...] Sign Reading Time Taken Comments Blood Pressure 130/82 11/02/2016 3:33 PM MAJOR GIFTS MANAGER Pulse 90 11/02/2016 3:33 PM MAJOR GIFTS MANAGER Temperature 36.9 ??C (98.5 ??F) 11/02/2016 3:33 PM MAJOR GIFTS MANAGER Respiratory Rate 20 11/02/2016 3:33 PM MAJOR GIFTS MANAGER Oxygen Saturation 98% 11/02/2016 3:33 PM MAJOR GIFTS MANAGER Inhaled Oxygen Concentration - - Weight 53.1 kg (117 lb) 11/02/2016 3:33 PM MAJOR GIFTS MANAGER Height 160 cm (5' 3) 11/02/2016 3:33 PM MAJOR GIFTS MANAGER Body Mass Index 20.73 11/02/2016 3:33 PM MAJOR GIFTS MANAGER documented in this encounter Progress Notes Kalin Suh MD - 11/02/2016 3:28 PM CST SUBJECTIVE: Joel Amos is a 21 year old female who presents to clinic today for the following health issues: F/u - pleurisy - slight improvement The pain has improved but worse at night, cough has not improved, pt looks better in general, and issmiling and moving around more comfortably. Problem list and histories reviewed & adjusted, as indicated. Additional history: as documented Patient Active Problem List Diagnosis ??? Migraine ??? Health [facility] ??? Pain in joint, pelvic region and [...] Outpatient Prescriptions Medication Sig Dispense Refill ??? gabapentin (NEURONTIN) 100 MG capsule Take 1 capsule (100 mg) by mouth 3 times daily 90 capsule 0 ??? predniSONE (DELTASONE) 20 MG tablet Take 2 tablets (40 mg) by mouth daily for 5 days 10 tablet 0 ??? azithromycin (ZITHROMAX) 250 MG tablet Take 2 pills today, then 1 pill for 4 days. 6 tablet 0 ??? lidocaine (XYLOCAINE) 5 % [...] NEGATIVE for fever, chills, change in weight CV: NEGATIVE for palpitations or peripheral edema OBJECTIVE: BP 130/82 mmHg Pulse 90 Temp(Src) 98.5 ??F (36.9 ??C) (Oral) Resp 20 Ht 5' 3 (1.6 m) Wt 117 lb (53.071 kg) BMI 20.73 kg/m2 SpO2 98% LMP 10/18/2016 Body mass index is 20.73 kg/(m^2). GENERAL: healthy, alert and no distress RESP: lungs clear to auscultation - no rales, rhonchi or wheezes CV: regular rate and rhythm, normal S1 S2, no S3 or S4, no murmur, click or rub, no peripheral edemaand peripheral pulses strong Tenderness on the lower anterior ribs. ASSESSMENT/PLAN: 1. Painful respiration Continue on prednisone, start on - gabapentin (NEURONTIN) 100 MG capsule; Take 1 capsule (100 mg) by mouth 3 times daily Dispense: 90capsule; Refill: 0 Given a note for work to return gradually. 2. Rib pain As above. - gabapentin (NEURONTIN) 100 MG capsule; Take 1 capsule (100 mg) by mouth 3 times daily Dispense: 90capsule; Refill: 0 Kalin Suh MD [facility] R GIFTS MANAGER documented in this encounter Nursing Notes Gabi Whitfield, PLANS EXAMINER - 11/02/2016 3:34 PM CST Chief Complaint Patient presents with ??? RECHECK pleurisy- slight improvement Initial BP 130/82 mmHg Pulse 90 Temp(Src) 98.5 ??F (36.9 ??C) (Oral) Resp 20 Ht 5' 3 (1.6 m) Wt 117 lb (53.071 kg) BMI 20.73 kg/m2 SpO2 98% LMP 10/18/2016 Estimated body mass index is 20.73 kg/(m^2) as calculated from the following: Height as of this encounter: 5' 3 (1.6 m). Weight as of this encounter: 117 lb (53.071 kg).. BP completed using cuff size regular Gabi Whitfield CMA R GIFTS MANAGER documented in this encounter Plan of Treatment Not on filedocumented as of this encounter Visit Diagnoses Diagnosis Painful respiration - Primary Rib pain Chest pain, unspecified documented in this encounter Additional Health Concerns Assessment Noted Time PHQ-9 Depression Total Score: 5 07/29/2016 7:17 AM CDT documented as of this encounter Care Teams Laundry Aide Relationship Specialty Start Date End Date Kalin Suh MD PCP - General Family Practice 07/04/16 06/15/[address] [place] [address] documented as of this encounter
--- OUTSIDE RECORDS SUMMARY | 2022-09-05 18:58 | XMS_ITS | Encounter Summary ---
:1995 Author Organization [place] Address [address] [place] [address] Care Team Providers Name Role Phone Kalin Suh MD Primary Care Provider Reason for Visit Reason Onset Date Comments Nurse Advice Line 06/08/2017 Encounter Details Date Type Department Care Team Description 06/08/2017 Telephone [facility] Melissa Young Nurse Advice Line [place] MD T[address] [place] [phone] (Wo rk) Social History Tobacco Use Types [...] Telephone Encounter - Farzad Sandoval RN - 06/08/2017 8:21 AM CDT Pt calls, my stomach is burning and down there too is still burning. It is getting worse and I don'tknow what is going on. I think I need another antibiotic or something. Visit scheduled today. We checked PCP schedule first, no openings. Pt agrees to see Dr. Torres again. Farzad Sandoval, RN documented in this encounter Plan of Treatment Not on filedocumented as of this encounter Visit Diagnoses Not on filedocumented in this encounter Additional Health Concerns Assessment Noted Time PHQ-9 Depression Total Score: 17 03/03/2017 7:16 AM CD T documented as of this encounter Care Teams Spa Attendant Relationship Specialty Start Date End Date Kalin Suh MD PCP - General Family Practice 07/04/16 06/15/17 [address] [place] [address] documented as of this encounter
--- OUTSIDE RECORDS SUMMARY | 2022-09-05 18:58 | XMS_ITS | Encounter Summary ---
:1995 Author Organization [facility] Address [address] [place] [address] Care Team Providers Name Role Phone Kalin Suh MD Primary Care Provider Reason for Visit Reason Comments Rib Pain Encounter Details Date Type Department Care Team Description 10/25/2016 - Emergency [facility] Bonnie Haney Chest pain on 10/26/2016 [facility] Emergency MD Allie breathing Dept [facility] [address] [place] [place] [address] [facility] [address] [place] [address] [phone] (Wo rk) Social History Tobacco Use Types [...] Sign Reading Time Taken Comments Blood Pressure 133/95 10/26/2016 12:15 AM [employer] Pulse 85 10/26/2016 12:51 AM [employer] Temperature 36.8 ??C (98.2 ??F) 10/25/2016 11:45 PM [employer] Respiratory Rate 20 10/26/2016 12:51 AM [employer] Oxygen Saturation 98% 10/26/2016 1:15 AM [employer] Inhaled Oxygen Concentration - - Weight 55.8 kg (123 lb 0.3 oz) 10/25/2016 11:41 PM [employer] Height - - Body Mass Index 21.79 07/04/2016 11:11 AM CDT documented in this encounter Discharge Instructions Discharge InstructionsBonnie Haney MD - 10/26/2016 2:20 AM [employer] Prescription strength dosing instructions: - 600mg ibuprofen (motrin, advil) every 6 hours and/or - 650mg acetaminophen (tylenol) every 4 hours or 1000mg every 6 hours (maximum of 4000mg in 24 hours). Acetaminophen is often in combination over the counter and prescription pain medications. Be sure to include this in daily total. - These work in different ways and are safe to take together [employer] AttachmentsThe following attachments cannot be sent through Care Everywhere. PLEURISY (SUDANESE)documented in this encounter Medications at Time of Discharge Medication Sig Dispensed Refills Start Date End Date acetaminophen-codeine Take 1-2 tablets by 15 tablet 0 10/2603/02/2017 (TYLENOL/CODEINE #3) mouth every 6 hours 300-30 MG per tablet as needed for pain albuterol (PROAIR Inhale 2 puffs into 0 03/02/2017 HFA/PROVENTIL the lungs every 6 HFA/VENTOLIN HFA) 108 (90 hours BASE) MCG/ACT Inhaler NONFORMULARY Unknown cough 0 7 medicine Vit-Fe Take 1 tablet by 0 12/07/2014 Fumarate-FA ( mouth Take 1 tablet MULTIVITAMIN PLUS IRON) by mouth 27-0.8 MG TABS per tablet documented as of this encounter ED Notes Xuan Presley RN - 10/26/2016 2:34 AM CST AVS reviewed. [employer] Bonnie Haney MD - 10/25/2016 11:51 PM CST History Chief Complaint: Chest Discomfort HPI Joel Amos is a 21 year old female with a history of migraines, depression, and anxiety who presents to the emergency department for evaluation of chest and rib discomfort. The patient states that she has had rhinorrhea, a dry cough, chest tightness, and rib pain for the last three days, which she states has been worsening in severity. She notes that her chest and bilateral rib pain are exacerbated by coughing and by deep breathing. She states that she took a half tab of Suboxone for these symptoms, which she obtained from a friend, with some relief. Of note, the patient states that she was seen in Urgent care for these symptoms this morning was prescribed an inhaler. However, when the patient's chest and rib pain continued into this evening, she decided to seek evaluation here in the emergency department.The patient states that she has also had a migraine headache, which she has had in the past, and nausea with these symptoms as well. She denies any recent fevers, sore throat, or lower ex tremity swelling. Cardiac/PE/DVT Risk Factors: The patient is a smoker, but has no history of hypertension, hyperlipidemia, or diabetes. She reports a family history of hypertension. The patient denies any personal or familial history of PE, DVT, or clotting disorder. The patient reports no recent travel, surgery, or other immobilizations. Allergies: NKDA Medications: Albuterol Mirena Past Medical History: Depression Migraines Anxiety Bipolar disorder Past Surgical History: The patient does not have any pertinent past surgical history. Family History: hypertension Social History: Presents alone. Current Every day smoker, 1.00 ppd. Negative for alcohol use. Marital Status: Single [1] Review of Systems Constitutional: Negative for fever. HENT: Positive for rhinorrhea. Negative for sore throat. Respiratory: Positive for cough and chest tightness. Cardiovascular: Positive for rib pain. Gastrointestinal: Positive for nausea. Neurological: Positive for headaches. All other systems reviewed and are negative. Physical Exam Patient Vitals for the past 24 hrs: BP Temp Temp src Pulse Heart Rate Resp SpO2 Weight 10/26/16 0115 - - - - - - 98 % - 10/26/16 0051 - - - 85 - 20 - - 10/26/16 0015 (!) 133/95 mmHg - - - - - - - 10/25/16 2345 137/89 mmHg 98.2 ??F (36.8 ??C) Temporal 85 85 22 99 % - 10/25/16 2341 - - - - - - - 55.8 kg (123 lb 0.3 oz) Physical Exam Eyes: Sclera white; Pupils are equal and round ENT: External ears and nares normal CV: Regular rate and rhythm, No murmur No CW tenderness, no rash No BLE edema Resp: Breath sounds clear and equal bilaterally GI: Abdomen is soft, epigastric tenderness MS: Moves all extremities Skin: Warm and dry Neuro: Speech is normal and fluent. No apparent deficit. Emergency Department Course ECG: Indication: Rib Pain Time: 0011 Vent. Rate 85 bpm. CO interval 130. QRS duration 88. QT/QTc 372/442. P-R-T axis 34 31 56. Normal sinus rhythm. Normal ECG. Read time: 0025 Imaging: Radiographic findings were communicated with the patient who voiced understanding of the findings. XR Chest PA and LAT No acute abnormality. As per radiology. US Abdomen, Limited: Normal right upper quadrant. No gallstone or biliary dilatation. As per radiology. Laboratory: CBC: WBC: 16.9 (H), HGB: 14.3, PLT: 313 BMP: all WNL (Creatinine: 0.63) D Dimer:<0.3 Lipase: 55 (L) Hepatic Panel:all WNL Influenza A/B antigen:Negative UA with micro: trace blood, few bacteria, Squamous epithelial 10, mucous present o/w negative HCG (urine):Negative Interventions: 0021 Morphine, 4 mg, IV injection Toradol, 30 mg, IV injection Zofran, 4 mg, IV injection Emergency Department Course: Nursing notes and vitals reviewed. I performed an exam of the patient as documented above. EKG obtained in the ED, see results above. IV inserted. Medicine administered as documented above. Blood drawn. This was sent to the lab for further testing, results above. The patient provided a urine sample here in the emergency department. This was sent for laboratory testing, findings above. The patient was sent for a Chest XR and Abdominal US while in the emergency department, findings above. 0126 I rechecked in with the patient and discussed the results of her workup thus far. 0153 I reevaluated the patient and provided an update in regards to her ED course. Findings and plan explained to the Patient. Patient discharged home with instructions regarding supportive care, medications, and reasons to return. The importance of close follow-up was reviewed. The patient was prescribed Tylenol/ Codeine #3. I personally reviewed the laboratory results with the Patient and answered all related questions prior to discharge. Impression & Plan Medical Decision Making: Joel Amos is a 21 year old female who is here for evaluation of painful respiration. Althoughthis is describes as bilateral, it appears to be worse on the right. This could be secondary to intrathoracic process, such as pneumonia, pneumothorax, pleural effusion, pulmonary embolism, or a subdiaphragmatic process, such as hepatitis, pancreatitis, or biliary colic. Blood work is notable for an elevated white blood cell count, which is nonspecific. Chest x- ray and ultrasound do not reveal the etiology of the patient's symptoms. Her only risk factor for PE is a Mirena, which is progesterone based and less likely than estrogen based medications to increased her risk. However, with no other clearetiology of her symptoms, D dimer was added on. This returned normal and therefore CT imaging is notindicated. Based on her workup, I suspect that she has a viral pleurisy. She will be treated with symptomatic mediations, including over the counter ibuprofen, as well as prescribed pain medications. She will be following up closely in clinic. Smoking cessation advised. Diagnosis: ICD-10-CM 1. Chest pain on breathing R07.1 Disposition: discharged to home Discharge Medications: New Prescriptions ACETAMINOPHEN-CODEINE (TYLENOL/CODEINE #3) 300-30 MG PER TABLET Take 1-2 tablets by mouth every 6 hours as needed for pain Shani Lincoln, am serving as a scribe on 10/25/2016 at 11:52 PM to personally document services performed by Bonnie Haney MD based on my observations and the provider's statements to me. Shani Doshi 10/25/2016 [facility] EMERGENCY DEPARTMENT Bonnie Haney MD 10/26/16 0312 [employer] Monik Martino RN - 10/25/2016 11:43 PM CST Reports pain to edge of right lower ribcage 3 days ago; states pain is now worse and radiates aroundthe base of her ribcage on both sides; denies pain to chest just my ribs; states urgent care MD told her that her bra was too tight and gave her inhaler and cough meds; pt states she was unable to sleep last night r/t pain. Reports she has been having intermittent dry cough. ABCs intact. [employer] documented in this encounter Plan of Treatment Not on filedocumented as of this encounter Procedures Procedure Name Priority Date/Time Associated Comments Diagnosis US ABDOMEN LIMITED STAT 10/26/2016 1:07 AM Res ults for this [employer] procedure are i n the results section. XR CHEST 2 VIEWS STAT 10/26/2016 12:48 Results for this AM [employer] procedure are i n the results section. HCG QUALITATIVE URINE STAT 10/26/2016 12:26 Re sults for this AM [employer] procedure are i n the results section. ROUTINE UA WITH STAT 10/26/2016 12:26 Results for this MICROSCOPIC AM [employer] procedure are i n the results section. CBC WITH PLATELETS & STAT 10/26/2016 12:22 Res ults for this DIFFERENTIAL AM [employer] procedure are i n the results section. LIPASE STAT 10/26/2016 12:22 Results for this AM [employer] procedure are i n the results section. INFLUENZA A/B ANTIGEN STAT 10/26/2016 12:22 Re sults for this AM [employer] procedure are i n the results section. HEPATIC FUNCTION STAT 10/26/2016 12:22 Results for this PANEL AM [employer] procedure are i n the results section. D DIMER QUANTITATIVE Routine 10/26/2016 12:22 Res ults for this AM [employer] procedure are i n the results section. BASIC METABOLIC PANEL STAT 10/26/2016 12:22 Re sults for this AM [employer] procedure are i n the results section. EKG 12-LEAD, TRACING STAT 10/26/2016 12:11 Res ults for this ONLY AM [employer] procedure are i n the results section. documented in this encounter Results US Abdomen Limited (10/26/2016 1:07 AM [employer]) Anatomical Region Laterality Modality Abdomen/Pelvis Ultrasound Specimen (Source) Anatomical Location Collection Method / Collectio n Time Received Time / Laterality Volume Impressions 10/26/2016 1:12 AM [employer] IMPRESSION: Normal right upper quadrant. No gallston e or biliary dilatation. KEVYN HARRIS MD Narrative 10/26/2016 1:12 AM [employer]ATION US ABDOMEN LIMITED ??10/26/2016 1:07 AM ?? HISTORY: Right upper quadrant pain. COMPARISON: None. FINDINGS: The liver is normal in size an d texture without focal mass. There is no intra or extrahepatic biliar y dilatation. The common hepatic duct measures 0.5 cm. ??The gall bladder is normal in appearance without gallstones. ??The pancreas body appears normal. The head and tail are obscured by bowel gas. ??The ri ght kidney measures 11.0 cm and is normal in appearance. The proximal ab dominal aorta and IVC appear normal. Procedure Note Kevyn Harris MD - 10/26/2016Form atting of this note might be different from the original. US ABDOMEN LIMITED 10/26/2016 1:07 AM HISTORY: Right upper quadrant pain. COMPARISON: None. FINDINGS: The liver is normal in size an d texture without focal mass. There is no intra or extrahepatic biliar y dilatation. The common hepatic duct measures 0.5 cm. The gallbl adder is normal in appearance without gallstones. The pancreas body ap pears normal. The head and tail are obscured by bowel gas. The righ t kidney measures 11.0 cm and is normal in appearance. The proximal ab dominal aorta and IVC appear normal. IMPRESSION: Normal right upper quadrant. No gallston e or biliary dilatation. KEVYN HARRIS MD Bonnie Haney MD IMG US ORDERABLES Chest XR, PA & LAT (10/26/2016 12:48 AM [employer]) Anatomical Region Laterality Modality Chest Computed Radiography Specimen (Source) Anatomical Location Collection Method / Collectio n Time Received Time / Laterality Volume Impressions 10/26/2016 6:11 AM [employer]ERATION IMPRESSION: ??No acute abnormality. KEVYN HARRIS MD Narrative 10/26/2016 6:11 AM [employer]IGERATION XR CHEST 2 VW ??10/26/2016 12:48 AM ?? HISTORY: Lower chest pain bilaterally. COMPARISON: None. FINDINGS: The heart size is normal. The lungs are clear. No pneumothorax or pleural effusion. Procedure Note Kevyn Harris MD - 10/26/2016Form atting of this note might be different from the original. XR CHEST 2 VW 10/26/2016 12:48 AM HISTORY: Lower chest pain bilaterally. COMPARISON: None. FINDINGS: The heart size is normal. The lungs are clear. No pneumothorax or pleural effusion. IMPRESSION: No acute abnormality. KEVYN HARRIS MD Bonnie Haney MD IMG DIAGNOSTIC IMAGING ORDER NAS HCG qualitative urine (10/26/2016 12:26 AM [employer]) P athologist Signature HCG Qual Urine Negative NEG [facility] Specimen Anatomical Collection Method Collection Time Receive d Time (Source) Location / / Volume Laterality Urine specimen URINE SPECIMEN 10/26/2016 12:26 017 (specimen) OBTAINED BY CLEAN AM [employer] 12:[address] CATCH PROCEDURE / Unknown Bonnie Haney MD LAB - URINE ORDERABLES Performing Organization Address City/State/ZIP Code Phon e Number [place] [address] [place] [address] [facility] [address] [phone] (ABNORMAL) UA with Microscopic (10/26/2016 12:26 AM [employer]) [facility] gist Method Time Signature Color Urine Yellow [facility] Appearance Urine Slightly [place] Cloudy [facility] Glucose Urine Negative NEG mg/dL [facility] Bilirubin Urine Negative NEG [facility] Ketones Urine Negative NEG mg/dL [facility] Specific [place] 1.015 1.003 - [place] Urine 1.035 [facility] Blood Urine Trace (A) NEG [facility] pH Urine 5.0 5.0 - 7.0 [place] pH [facility] Protein Albumin Negative NEG mg/dL [facility] Urobilinogen Normal 0.0 - 2.0 [place] mg/dL mg/dL [facility] Nitrite Urine Negative NEG [facility] Leukocyte Negative NEG [place] Esterase Urine [facility] Source Midstream [facility] WBC Urine 1 0 - 2 [facility] /HPF [facility] RBC Urine 2 0 - 2 [facility] /HPF [facility] Bacteria Urine Few (A) NEG /HPF [facility] Squamous 10 (H) 0 - 1 [facility] Epithelial /HPF /HPF [facility] Transitional Epi <1 0 - 1 [facility] /HPF [facility] Mucous Urine Present (A) NEG /LPF [facility] Specimen Anatomical Collection Method Collection Time Receive d Time (Source) Location / / Volume Laterality Urine specimen URINE SPECIMEN 10/26/2016 12:26 017 (specimen) OBTAINED BY CLEAN AM [employer] 12:[address] CATCH PROCEDURE / Unknown Bonnie Haney MD LAB - URINE ORDERABLES Performing Organization Address City/[facility]/ZIP [facility] Phon e Number [facility] [address], [place] [address] [facility] [address] [place], [place] [address] [address] [phone] D dimer quantitative (10/26/2016 12:22 AM [employer]) [facility] Method Time Signature D Dimer <0.3 0.0 - [place] This D-dimer assay is intended for use i n conjuntion with a clinical pretest 0.50 [facility] probability assessment model to exclude pulmonary embolism (PE) and as an aid ug/ml [facility] in the diagnosis of deep ve nous thrombosis (DVT) in outpatients suspected of PE or DVT. The cut-off value is 0.5??g/mL [facility]. Specimen Anatomical Collection Method Collection Time Receive d Time (Source) Location / / Volume Laterality 10/26/2016 12:22 10/26/2016 AM [employer] 12:35 AM [employer] Bonnie Haney MD LAB - BLOOD ORDERABLES Performing Organization Address City/[facility]/ZIP [facility] Phon e Number [facility] [address], [place] [address] [facility] [address] [place], [place] [address], [facility] [phone] Influenza A/B antigen (10/26/2016 12:22 AM [employer]) Component Value Ref Test Analysis Performed At [facility] [employer] Method Time Signature Influenza A/B Nasopharyngeal [facility] Influenza A Negative NEG [facility] Influenza B Negative NEG [place] Test results must be correlated with clinical data. If ne cessary, results [place] should be confirmed by a molecular assay or viral culture. HOSPITAL Specimen (Source) Anatomical Collection Method Collection Time Re ceived Time Location / / Volume Laterality Specimen from SWAB FROM NASAL 10/26/2016 12:22 017 nasopharyngeal SINUS / Unknown AM [employer] 12:[address] structure (specimen) Bonnie Haney MD LAB - MICRO GENERAL ORDERABL ES Performing Organization Address City/State/ZIP Code Phon e Number [facility] [address], [place] [address] [facility] [address] [place], [place] [address], [facility] [phone] Hepatic panel (10/26/2016 12:22 AM [employer]) athologist Signature Bilirubin Direct 0.1 0.0 - 0.2 [place] mg/dL [facility] Bilirubin Total 0.8 0.2 - 1.3 [place] mg/dL [facility] Albumin 4.4 3.4 - 5.0 [place] g/dL [facility] Protein Total 8.0 6.8 - 8.8 [place] g/dL [facility] Alkaline 70 40 - 150 [place] Phosphatase U/L [facility] ALT 17 0 - 50 U/L [facility] AST 13 0 - 45 U/L [facility] Specimen Anatomical Collection Method Collection Time Receive d Time (Source) Location / / Volume Laterality Blood specimen 10/26/2016 12:22 7 (specimen) AM [employer] 12:35 AM [employer] Bonnie Haney MD LAB - BLOOD ORDERABLES Performing Organization Address City/State/ZIP Code Phon e Number [facility] [address], [place] [address] [facility] [address] [place], [place] [address], [facility] [phone] (ABNORMAL) Lipase (10/26/2016 12:22 AM [employer]) athologist Signature Lipase 55 (L) 73 - [address] [facility] U/L HOSPITAL Specimen Anatomical Collection Method Collection Time Receive d Time (Source) Location / / Volume Laterality Blood specimen 10/26/2016 12:22 7 (specimen) AM [employer] 12:35 AM [employer]IG[employer] Bonnie Haney MD LAB - BLOOD ORDERABLES Performing Organization Address City/[facility]/ZIP [facility] Phon e Number [facility] [address], [place] [address] [facility] [address] [place], [place] [address], [facility] [phone] Basic metabolic panel (10/26/2016 12:22 AM [employer]) [facility] Method Time Signature Sodium 137 133 - 144 [place] mmol/L [facility] Potassium 3.4 3.4 - 5.3 [place] mmol/L [facility] Chloride 101 94 - 109 [place] mmol/L [facility] Carbon Dioxide 28 20 - 32 [place] mmol/L [facility] Anion Gap 8 3 - 14 [place] mmol/L [facility] Glucose 96 70 - 99 [place] mg/dL [facility] Urea Nitrogen 10 7 - 30 [place] mg/dL [facility] Creatinine 0.63 0.52 - [place] 1.04 [facility] mg/dL [facility] GFR Estimate >90 >60 [place] Non GFR Calc mL/min/1. [facility] 7m2 HOSPITAL GFR Estimate >90 >60 [place] If Black GFR Calc mL/min/1. [facility] ES 7m2 [facility] Calcium 9.3 8.5 - [place] 10.1 [facility] mg/dL HOSPITAL Specimen Anatomical Collection Method Collection Time Receive d Time (Source) Location / / Volume Laterality Blood specimen 10/26/2016 12:22 7 (specimen) AM [employer] 12:35 AM [employer] Bonnie Haney MD LAB - BLOOD ORDERABLES Performing Organization Address City/[facility]/ZIP Code Phon e Number [facility] [address], [place] [address] [place] [address] [address] [place], [place] [address], [facility] [phone] (ABNORMAL) CBC with platelets differential (10/26/2016 12:22 AM [employer]) [facility] Method Time Signature WBC 16.9 (H) 4.0 - [facility] 11.0 [facility] 10e9/L [facility] RBC Count 4.58 3.8 - 5.2 [place] 10e12/[facility] Hemoglobin 14.3 11.7 - [place] 15.7 g/dL [facility] Hematocrit 42.4 35.0 - [place] 47.0 % [facility] MCV 93 78 - 100 [place] fl [facility] MCH 31.2 26.5 - [place] 33.0 pg [facility] MCHC 33.7 31.5 - [place] 36.5 g/dL [facility] RDW 13.1 10.0 - [place] 15.0 % [facility] Platelet Count 313 150 - [address] Diff Method Automated [place] Method [facility] % Neutrophils 68.5 % [facility] % Lymphocytes 22.0 % [facility] % Monocytes 7.8 % [facility] % Eosinophils 0.9 % [facility] % Basophils 0.4 % [facility] % Immature 0.4 % [place] Granulocytes [facility] Nucleated RBCs 0 0 /100 [facility] Absolute 11.6 (H) 1.6 - 8.3 [place] Neutrophil [address] [place] [address] Absolute 3.7 0.8 - 5.3 [place] Lymphocytes [address] [place] [address] Absolute 1.3 0.0 - 1.3 [place] Monocytes [address] [place] [address] Absolute 0.2 0.0 - 0.7 [place] Eosinophils [address] [place] [address] Absolute 0.1 0.0 - 0.2 [place] Basophils [address] [place] [address] Abs Immature 0.1 0 - 0.4 [place] Granulocytes [address] [place] [address] Absolute 0.0 [place] Nucleated RBC [facility] Specimen Anatomical Collection Method Collection Time Receive d Time (Source) Location / / Volume Laterality Blood specimen 10/26/2016 12:22 7 (specimen) AM [employer] 12:35 AM [employer] Bonnie Haney MD LAB - BLOOD ORDERABLES Performing Organization Address City/State/ZIP Code Phon e Number [facility] [address], [place] [address] [facility] [address] [place] [address] [phone] EKG 12-lead, tracing only (10/26/2016 12:11 AM [employer]) [facility] gist Method Time Signature Interpretation ECG Click View RADIOLOGY Image link RESULTS to view waveform and result Specimen (Source) Anatomical Collection Method Collection Time Re ceived Time Location / / Volume Laterality 10/26/2016 12:11 AM STATIONARY ENGINEER REFRIGERATION Bonnie Haney MD ECG ORDERABLES Performing Organization Address City/State/ZIP Code Phon e Number RADIOLOGY RESULTS documented in this encounter Visit Diagnoses Diagnosis Chest pain on breathing Painful respiration documented in this encounter Administered Medications Inactive Administered Medications - up to 3 most recent administrations Medication Order MAR Action Action Date Dose Rate Site ketorolac (TORADOL) injection 30 Given 10/26/2016 12:21 AM STATIONARY ENGINEER REFRIGERATION 3 0 mg mg 30 mg, Intravenous, ONCE, On Wed10/26/16 at 0002, For 1 dose morphine (PF) injection 4 mg Given 10/26/2016 12:21 AM STATIONARY ENGINEER REFRIGERATION 4 mg 4 mg, Intravenous, ONCE, On Wed10/26/16 at 0002, For 1 dose ondansetron (ZOFRAN) injection 4 mg Given 10/26/2016 12:21 AM STATIONARY ENGINEER REFRIGERATION 4 mg 4 mg, Intravenous, ONCE, Administer over 2-5 Minutes, On Wed10/26/16 at 0002, For 1 dose documented in this encounter Active and Recently Administered Medications Times are shown in STATIONARY ENGINEER REFRIGERATION. Scheduled Medication Order 10/24/2016 10/25/2016 10/26/2016 ketorolac (TORADOL) injection 30 mg (COMPLETED) 0021 (Given - Provider: Connie Varghese RN) 30 mg, Intravenous, ONCE, Wed10/26/16 at 0002, For 1 dose morphine (PF) injection 4 mg (COMPLETED) 0021 (Given - Provider: Connie Varghese RN) 4 mg, Intravenous, ONCE, Wed10/26/16 at 0002, For 1 dose ondansetron (ZOFRAN) injection 4 mg (COMPLETED) 0021 (Given - Provider: Connie Varghese RN) 4 mg, Intravenous, ONCE, for 2 Minutes, Wed10/26/16 at 0002, For 1 dose documented in this encounter Additional Health Concerns Assessment Noted Time PHQ-9 Depression Total Score: 5 07/29/2016 7:17 AM CDT documented as of this encounter Care Teams Auto Body Detailer Relationship Specialty Start Date End Date Kalin Suh MD PCP - General Family Practice 07/04/16 06/15/17 [address] [place] [address] documented as of this encounter
--- OUTSIDE RECORDS SUMMARY | 2022-09-05 18:58 | XMS_ITS | Encounter Summary ---
:1995 Author Organization [place] Address [facility] [place] [address] Care Team Providers Name Role Phone [facility] Primary Care Provider [phone] Reason for Visit Reason Onset Date Comments Patient/info Update 07/01/2016 stopped risperidone, paroxetine Encounter Details Date Type Department Care Team Description 07/01/2016 Telephone [facility] Kalin Suh MD Patient/info Update [address] (stopped risperidone, [address] [place] [address] paroxetine) [place] [phone] Social History Tobacco Use Types Packs/Day [...] Telephone Encounter - Farzad Sandoval RN - 07/02/2016 2:29 PM CDT I reached pt, no phone issue. Med check with AA scheduled this Wednesday. Appointment note: Nurse to give pt info about 09/08 [facility] appointment. She said Tuesdays are good days for appts so will attend. Farzad Sandoval, RN Telephone Encounter - Yolanda Chavez RN - 07/02/2016 1:57 PM CDT Cannot call pt, no number working. Yolanda Chavez RN Telephone Encounter - Kalin Suh MD - 07/02/2016 11:58 AM CDT Let's keep that appointment, meanwhile, she needs a follow up with me. Telephone Encounter - Марина Howe - 07/02/2016 11:50 AM CDT The soonest appointment I could get for this pt is 09/08 @ [address] [facility] in [place]. This is a 2hrs appointment. Tried to call pt, no working numbers. [facility] [place] [address] [place] [address] Ph. [phone] [place]-Referrals Telephone Encounter - Kalin Suh MD - 07/02/2016 11:18 AM CDT [place], can we get Joel to see Psychiatry OLIVIA please. Meanwhile, if she stopped her medicine, she needs a follow up in the office. Telephone Encounter - Farzad Sandoval RN - 07/01/2016 4:06 PM CDT Stopped 06/01/16 bipolar and depression meds (risperidone, paroxetine) 06/26/16 because I was not feeling in reality. Stopped both because uncertain of which was causing SE. I want to try find a med that will help me that do not have horrible side effects. I did not call earlier because I have been busy and feel motivated today. Saw therapist yesterday who advised pt to call PCP with update. Please advise. Aware AA out of office, reply likely tomorrow afternoon. Pt agrees to call back sooner if needed . Farzad Sandoval, RN documented in this encounter Plan of Treatment Not on filedocumented as of this encounter Visit Diagnoses Not on filedocumented in this encounter Additional Health Concerns Assessment Noted Time PHQ-9 Depression Total Score: 15 06/17/2016 7:20 AM CD T documented as of this encounter Care Teams Cytology Laboratory Manager Relationship Specialty Start Date End Date Clinic, [facility] PCP - General 12/26/14 07/03/16 [address] [place] [address] documented as of this encounter
--- OUTSIDE RECORDS SUMMARY | 2022-09-05 18:58 | XMS_ITS | Encounter Summary ---
:1995 Author Organization [place] Address [address] [place] [address] Care Team Providers Name Role Phone Kalin Suh MD Primary Care Provider Encounter Details Date Type Department Care Team Description 10/30/2016 Radiant Appointment [facility] Kalin uSh MD Atypical chest pain Clinic [address], [address] [place] [address] [phone] Social History Tobacco Use Types Packs/Day Years [...] Comme nts XR CHEST 2 VIEWS Routine 10/30/2016 4:03 PM Atypical chest tabitha n Results for this BEARING GRINDER procedure are i n the results section. documented in this encounter Results XR Chest 2 Views (10/30/2016 4:03 PM BEARING GRINDER) Anatomical Region Laterality Modality Chest Computed Radiography Specimen (Source) Anatomical Location Collection Method / Collectio n Time Received Time / Laterality Volume Impressions 10/30/2016 4:22 PM BEARING GRINDER IMPRESSION: Since October 26, 2016, heart size remains normal. No pleural effusion, pneumothorax, or abnor mal area of consolidation. YASSINE GUAMAN MD Narrative 10/30/2016 4:22 PM BEARING GRINDER CHEST TWO VIEWS ??10/30/2016 4:03 PM HISTORY: [...] encounter Visit Diagnoses Diagnosis Atypical chest pain Other chest pain documented in this encounter Additional Health Concerns Assessment Noted Time PHQ-9 Depression Total Score: 5 07/29/2016 7:17 AM CDT documented as of this encounter Care Teams Sports Anchor Relationship Specialty Start Date End Date Kalin Suh MD PCP - General Family Practice 07/04/16 06/15/17 [address] [place] [address] documented as of this encounter
--- OUTSIDE RECORDS SUMMARY | 2022-09-05 18:58 | XMS_ITS | Encounter Summary ---
:1995 Author Organization [place] Address [address] [place] [address] Care Team Providers Name Role Phone Kalin Suh MD Primary Care Provider Tamiko Simons CHAIR CAR DRIVER Unavailable Encounter Details Date Type Department Care Team Description 03/07/2017 Telephone [facility] Advisors Benita Ken, RN [address] [place] [phone] Social History Tobacco Use Types Packs/Day Years [...] this encounter Miscellaneous Notes Telephone Encounter - Benita Ken RN - 03/07/2017 2:16 PM CDT Call Type: Triage Call Presenting Problem: I saw my primary provider on 03/02/17 and they were going to get back to me but I have not heard from them. Documentation and letter in [facility] read to caller. Telephone number to SW given to contact on Wednesday. Will call back this weekend with any urgent concerns. Triage Note: Guideline Title: Information Only Call; No Symptom Triage (Adult) Recommended Disposition: Call Provider When Office is Open Original Inclination: Did not know what to do Override Disposition: Intended Action: Call PCP/HCP Physician Contacted: No Requesting information and provider is best resource; no triage required. ? YES Requesting regular office appointment ? NO Sign(s) or symptom(s) associated with a diagnosed condition or with a new illness ? NO Requesting information about provider, services or community resources ? NO Call back to complete assessment/clarification of information from prior caller to complete triage ? NO Physician Instructions: Care Advice: documented in this encounter Plan of Treatment Not on filedocumented as of this encounter Visit Diagnoses Not on filedocumented in this encounter Additional Health Concerns Assessment Noted Time PHQ-9 Depression Total Score: 03/03/2017 7:16 AM CD T documented as of this encounter Care Teams Rock Crusher Operator Relationship Specialty Start Date End Date Kalin Suh MD PCP - General Family Practice 07/04/16 06/15/17 [address] [place] [address] Tamiko Simons MSW Stonecutter Hand 03/02/17 03/09/17 documented as of this encounter
--- OUTSIDE RECORDS SUMMARY | 2022-09-05 18:58 | XMS_ITS | Encounter Summary ---
:1995 Author Organization [place] Address [address] [place] [address]. [place] [address] Care Team Providers Name Role Phone Kalin Suh MD Primary Care Provider Reason for Visit Reason Comments ER F/U pain below rib cage Encounter Details Date Type Department Care Team Description 10/27/2016 Office Visit [facility] Kalin Suh MD Rib pain (Primary Dx) Clinic [address] [phone] Social History Tobacco Use Types Packs/Day Years [...] Sign Reading Time Taken Comments Blood Pressure 110/67 10/27/2016 9:59 AM ELECTRON BEAM OPERATOR Pulse 88 10/27/2016 9:59 AM ELECTRON BEAM OPERATOR Temperature 36.8 ??C (98.2 ??F) 10/27/2016 9:59 AM ELECTRON BEAM OPERATOR Respiratory Rate 20 10/27/2016 9:59 AM ELECTRON BEAM OPERATOR Oxygen Saturation 98% 10/27/2016 9:59 AM ELECTRON BEAM OPERATOR Inhaled Oxygen Concentration - - Weight 54 kg (119 lb) 10/27/2016 9:59 AM ELECTRON BEAM OPERATOR Height 160 cm (5' 3) 10/27/2016 9:59 AM ELECTRON BEAM OPERATOR Body Mass Index 21.08 10/27/2016 9:59 AM ELECTRON BEAM OPERATOR documented in this encounter Progress Notes Kalin Suh MD - 10/27/2016 9:54 AM CST SUBJECTIVE: Joel Amos is a 21 year old female who presents to clinic today for the following health issues: ED/UC Followup: [facility] Date of visit: 10/25/16 Reason for visit: severe pain below rib cage Current Status: has been getting worse Symptoms started on 10/22/2016 with no obvious reason, associated with mild cough and runny nose. Pain is worse when breathing or moving or lay down. Sometimes the pain is sever that she couldn't sleep. Problem list and histories reviewed & adjusted, as indicated. Additional history: as documented Patient Active Problem List Diagnosis ??? Migraine ??? Health [facility] ??? Pain in joint, pelvic region and [...] Outpatient Prescriptions Medication Sig Dispense Refill ??? diclofenac (VOLTAREN) 50 MG EC tablet [...] NEGATIVE for fever, chills, change in weight GI: NEGATIVE for nausea, abdominal pain, heartburn, or change in bowel habits OBJECTIVE: BP 110/67 mmHg Pulse 88 Temp(Src) 98.2 ??F (36.8 ??C) (Oral) Resp 20 Ht 5' 3 (1.6 m) Wt 119 lb (53.978 kg) BMI 21.09 kg/m2 SpO2 98% LMP 10/18/2016 Body mass index is 21.09 kg/(m^2). GENERAL: healthy, alert and no distress NECK: no adenopathy, no asymmetry, masses, or scars and thyroid normal to palpation RESP: lungs clear to auscultation - no rales, rhonchi or wheezes RESP: tenderness on bilateral sides of the lower ribs. CV: regular rate and rhythm, normal S1 S2, no S3 or S4, no murmur, click or rub, no peripheral edemaand peripheral pulses strong ABDOMEN: soft, nontender, no hepatosplenomegaly, no masses and bowel sounds normal MS: no gross musculoskeletal defects noted, no edema ASSESSMENT/PLAN: 1. Rib pain Mostly strain ribs, unsure if this is related to a physical injury or the recent URI (pt did have cough and URI symptoms ) - diclofenac (VOLTAREN) 50 MG EC tablet; Take 1 tablet (50 mg) by mouth 3 times daily as needed for moderate pain Dispense: 60 tablet; Refill: 1 - tiZANidine (ZANAFLEX) 4 MG tablet; Take 1 tablet (4 mg) by mouth 3 times daily Dispense: 90 tablet; Refill: 0 - lidocaine (XYLOCAINE) 5 % ointment; Apply topically as needed for moderate pain apply up to 4 times daily. Dispense: 50 g; Refill: 3 - WBC with Diff Given a note for work too. Follow up in 5 days if symptoms persist, sooner if symptoms worsen or new ones develops, pt may contact us over the phone for any questions or concerns. Kalin Suh MD [facility] TRON BEAM OPERATOR documented in this encounter Nursing Notes Gabi Whitfield CMA - 10/27/2016 10:00 AM CST Chief Complaint Patient presents with ??? ER F/U pain below rib cage Initial BP 110/67 mmHg Pulse 88 Temp(Src) 98.2 ??F (36.8 ??C) (Oral) Resp 20 Ht 5' 3 (1.6 m) Wt 119 lb (53.978 kg) BMI 21.09 kg/m2 SpO2 98% LMP 10/18/2016 Estimated body mass index is 21.09 kg/(m^2) as calculated from the following: Height as of this encounter: 5' 3 (1.6 m). Weight as of this encounter: 119 lb (53.978 kg).. BP completed using cuff size regular Gabi Whitfield CMA TRON BEAM OPERATOR documented in this encounter Plan of Treatment Not on filedocumented as of this encounter Procedures Procedure Name Priority Date/Time Associated Comments Diagnosis WBC AND DIFFERENTIAL Routine 10/27/2016 10:28 Rib pain Res ults for this AM ELECTRON BEAM OPERATOR procedure are i n the results section. documented in this encounter Results (ABNORMAL) WBC with Diff (10/27/2016 10:28 AM ELECTRON BEAM OPERATOR) athologist Signature WBC 13.7 (H) 4.0 - 11.0 [facility] 10e9/L [facility] Comment: Results confirmed by repeat brittnee t Diff Method Automated Method [facility] [place] % Neutrophils 72.6 % [facility] % Lymphocytes 16.4 % [facility] % Monocytes 8.1 % [facility] % Eosinophils 2.5 % [facility] % Basophils 0.4 % [facility] Absolute Neutrophil 10.0 (H) 1.6 - 8.3 10e9/L [facility] Absolute Lymphocytes 2.2 0.8 - 5.3 10e9/L [facility] Absolute Monocytes 1.1 0.0 - 1.3 10e9/L [facility] Absolute Eosinophils 0.3 0.0 - 0.7 10e9/L [facility] Absolute Basophils 0.1 0.0 - 0.2 10e9/L [facility] Specimen Anatomical Collection Method Collection Time Receive d Time (Source) Location / / Volume Laterality Blood specimen 10/27/2016 10:28 7 (specimen) AM ELECTRON BEAM OPERATOR 10:29 AM ELECTRON BEAM OPERATOR Kalin Suh MD LAB - BLOOD ORDERABLES Performing Organization Address City/State/ZIP Code Phon e Number [facility] [address] [place] [address] documented in this encounter Visit Diagnoses Diagnosis Rib pain - Primary Chest pain, unspecified documented in this encounter Additional Health Concerns Assessment Noted Time PHQ-9 Depression Total Score: 5 07/29/2016 7:17 AM CDT documented as of this encounter Care Teams Drafter Civil (Cad) Relationship Specialty Start Date End Date Kalin Suh MD PCP - General Family Practice 07/04/16 06/15/17 [address] [place] [address] documented as of this encounter
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
--- OUTSIDE RECORDS SUMMARY | 2022-09-05 18:58 | XMS_ITS | Encounter Summary ---
:1995 Author Organization [place] Address [facility] [place] [address] Care Team Providers Name Role Phone Melissa Young MD Primary Care Provider [phone] Reason for Visit Reason Onset Date Comments No Show 06/17/2017 Encounter Details Date Type Department Care Team Description 06/17/2017 Office Visit [facility] [place] NO SHOW (Primary Dx) [facility] [place] Melissa Frey MD [address] [place] [phone] [id number] Social History Tobacco Use Types Packs/Day Years [...] documented as of this encounter Progress Notes Melissa Young MD - 06/17/2017 3:15 PM CDT This patient was a no show for this scheduled appointment. documented in this encounter Plan of Treatment Not on filedocumented as of this encounter Visit Diagnoses Diagnosis NO SHOW - Primary documented in this encounter Additional Health Concerns Assessment Noted Time PHQ-9 Depression Total Score: 03/03/2017 7:16 AM CD T documented as of this encounter Care Teams Textile Science Technician Relationship Specialty Start Date End Date Melissa Young MD PCP - General Family Practice 06/16/17 06/28/17 [address] [place] [address] documented as of this encounter
--- OUTSIDE RECORDS SUMMARY | 2022-09-05 18:58 | XMS_ITS | Encounter Summary ---
:1995 Author Organization [place] Address [address] [facility] [place] [address] Care Team Providers Name Role Phone Kalin Suh MD Primary Care Provider Encounter Details Date Type Department Care Team Description 07/28/2016 Office Visit [facility] Salinas De León LMF T Moderate bipolar II Services [facility] R disorder, most recent [place] [address] [facility] episode major [address] [place] [address] depressive (H) [place], [place] [phone] (Wo rk) (Primary Dx) [id number] [phone] Social History Tobacco Use Types Packs/Day Years [...] Progress Notes Salinas De León LMFT - 07/28/2016 2:00 PM CDT Images from the original note were not included. Progress Note Client Name: Joel Amos Date: 07/28/2016 Service Type: Individual Session Start Time: 2pm Session End Time: 2:45pm Session Length: 45 minutes Session #: 5 Attendees: Client attended alone Treatment Plan Last Reviewed: 07/15/2016 PHQ-9 / FAITH-7 : 07/28/2016 DATA Progress Since Last Session (Related to Symptoms / Goals / Homework): Symptoms: Improved PHQ9/GAD7 Homework: Achieved / completed to satisfaction Episode of Care Goals: Satisfactory progress - [...] to history of self-cutting Client reports she has evaluated her life and future goals following her sandtray. Client has decided to calm [her] shit down, referring to her need to focus on what is important to her and distance herself from patterns of unwanted behaviors. She started to discuss her past and her family past, which has caused the client difficult times. She does not want to follow the family pattern and will continue to focus on creating healthy alternatives to deal with stressors. Treatment Objective(s) Addressed in This Session: maintain [...] Volume: Normal Mood: Anxious Depressed Affect: Appropriate Thought Content: Clear Thought [...] / Therapist Tasks / Other) Client will use assertiveness skills to talk to her employer about back pay. She will decrease unnecessary work hours to increase time with her daughters. She will start to keep a daily journal. Next session will start client's genogram. ADRIANA Palacios, ELECTRICAL AND INSTRUMENT TECHNICIAN Treatment Plan Client's Name: Joel Amos Date [...] Therapist will assign homework to identify escalation/triggers, [id number], stressors teach the client how to perform a behavioral chain analysis. start implementing operant conditioningfor desired behavioral patterns. Objective #B Identify two areas of life that you would like to have improved functioning. Status: New - Date: 07/15/2016 Intervention(s) Problem solving skills, improving decision making for chcf goals Improving social environments to healthy supports/environments Objective #C Establish clear, consistent, fair and manageable daily behavioral goals with healthy privileges and rewards Status: New - Date: 07/15/2016 Intervention(s) Therapist will provide therapeutic space to address root cause of conflict and begin healing teach emotional regulation skills. mindfulness, relaxation skills, deep breathing skills, [id number] Client has reviewed and agreed to the above plan. ADRIANA Palacios, ELECTRICAL AND INSTRUMENT TECHNICIAN July 28, 2016 documented in this encounter Plan of Treatment Not on filedocumented as of this encounter Visit Diagnoses Diagnosis Moderate bipolar II disorder, most recen t episode major depressive (H) - Primary Other bipolar disorders documented in this encounter Additional Health Concerns Assessment Noted Time PHQ-9 Depression Total Score: 5 07/29/2016 7:17 AM CDT documented as of this encounter Care Teams Research Specialist Relationship Specialty Start Date End Date Kalin Suh MD PCP - General Family Practice 07/04/16 06/15/17 [address] [place] [address] documented as of this encounter
--- OUTSIDE RECORDS SUMMARY | 2022-09-05 18:58 | XMS_ITS | Encounter Summary ---
:1995 Author Organization [place] Address [address] [place] [id number] Care Team Providers Name Role Phone Kalin Suh MD Primary Care Provider Reason for Visit Reason Comments Rib Pain Encounter Details Date Type Department Care Team Description 11/11/2016 Office Visit [facility] Aleena Sam Acu te bronchitis, unspecified organism (Primary Dx); [facility] DO Painful respiration; [address] [place] [address] RD Rib pain; [facility] [place] [phone] [facility] [phone] [place] [address] (Wo rk) Social History Tobacco Use Types [...] Sign Reading Time Taken Comments Blood Pressure 122/74 11/11/2016 4:13 PM ELECTRONICS SCALE TESTER Pulse 76 11/11/2016 4:13 PM ELECTRONICS SCALE TESTER Temperature 36.7 ??C (98 ??F) 11/11/2016 4:13 PM ELECTRONICS SCALE TESTER Respiratory Rate 14 11/11/2016 4:13 PM ELECTRONICS SCALE TESTER Oxygen Saturation - - Inhaled Oxygen Concentration - - Weight 54.5 kg (120 lb 3.2 oz) 11/11/2016 4:13 PM ELECTRONICS SCALE TESTER Height - - Body Mass Index 21.29 11/02/2016 3:33 PM ELECTRONICS SCALE TESTER documented in this encounter Progress Notes Enrike Aleena Allie, DO - 11/11/2016 4:08 PM CST SUBJECTIVE: Jeol Amos is a 21 year old female who presents to clinic today for the following health issues: Rib pain ?? Duration: over 3 weeks ?? Description (location/character/radiation): Ribs on both sides have sharp stabbing pains ?? Intensity: 8/10 ?? Accompanying signs and symptoms: panic attacks with anxiety ?? History (similar episodes/previous evaluation): None ?? Precipitating or alleviating factors: None ?? Therapies tried and outcome: None Having issues with bronchitis and pleurisy for the past month. S/P 5 day burst of steroids and zpack. Currently taking gabapentin which does help at higher doses(best day was when she took 200mg TID). PATIENT notes anxiety has worsened since she has been ill and is requesting short acting PRN anxiety meds. Problem list and histories reviewed & adjusted, as indicated. Additional history: as documented Problem list, Medication list, Allergies, and Medical/Social/Surgical histories [facility] andupdated as appropriate. ROS: Constitutional, HEENT, cardiovascular, pulmonary, gi and gu systems are negative, except as otherwise noted. OBJECTIVE: BP 122/74 mmHg Pulse 76 Temp(Src) 98 ??F (36.7 ??C) (Oral) Resp 14 Wt 120 lb 3.2 oz (54.522 kg) LMP 10/18/2016 Body mass index is 21.3 kg/(m^2). GENERAL: healthy, alert and no distress EYES: Eyes grossly normal to inspection, PERRL and conjunctivae and sclerae normal HENT: ear canals and TM's normal, nose and mouth without ulcers or lesions NECK: no adenopathy, no asymmetry, masses, or scars and thyroid normal to palpation RESP: Insp and exp wheeze throughout CV: regular rates and rhythm, normal S1 S2, no S3 or S4 and no murmur, click or rub Diagnostic Test Results: none ASSESSMENT/PLAN: 1. Acute bronchitis, unspecified organism - Advised smoking cessation - Will restart prednisone and do a taper this time - predniSONE (DELTASONE) 20 MG tablet; Take 3 tabs (60 mg) by mouth daily x 3 days, 2 tabs (40 mg) daily x 3 days, 1 tab (20 mg) daily x 3 days, then 1/2 tab (10 mg) x 3 days. Dispense: 20 tablet; Refill: 0 2. Painful respiration - Continue gabapentin, but ok to increase dose PRN (100-300mg TID) - gabapentin (NEURONTIN) 100 MG capsule; Take 1-3 capsules (100-300 mg) by mouth 3 times daily Dispense: 90 capsule; Refill: 0 4. Anxiety - Discussed no benzos today since this is my first time meeting her and she has an extensive psych history - Will try Atarax PRN - hydrOXYzine (ATARAX) 25 MG tablet; Take 1-2 tablets (25-50 mg) by mouth every 6 hours as needed for itching Dispense: 60 tablet; Refill: 1 Follow up if symptoms are worsening or not improving Aleena Calvert DO [facility] TRONICS SCALE TESTER documented in this encounter Nursing Notes Jed Reese - 11/11/2016 4:13 PM CST Chief Complaint Patient presents with ??? Rib Pain Initial BP 122/74 mmHg Pulse 76 Temp(Src) 98 ??F (36.7 ??C) (Oral) Resp 14 Wt 120 lb 3.2 oz (54.522 kg) LMP 10/18/2016 Estimated body mass index is 21.3 kg/(m^2) as calculated from the following: Height as of 11/02/16: 5' 3 (1.6 m). Weight as of this encounter: 120 lb 3.2 oz (54.522 kg). BP completed using cuff size: small regular Jed Reese CMA TRONICS SCALE TESTER documented in this encounter Plan of Treatment Not on filedocumented as of this encounter Visit Diagnoses Diagnosis Acute bronchitis, unspecified organism - Primary Painful respiration Rib pain Chest pain, unspecified Anxiety Anxiety state, unspecified documented in this encounter Additional Health Concerns Assessment Noted Time PHQ-9 Depression Total Score: 5 07/29/2016 7:17 AM CDT documented as of this encounter Care Teams Solar Sales Rep Relationship Specialty Start Date End Date Kalin Suh MD PCP - General Family Practice 07/04/16 06/15/17 [id number] [place] [address] documented as of this encounter
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
--- OUTSIDE RECORDS SUMMARY | 2022-09-05 18:58 | XMS_ITS | Encounter Summary ---
:1995 Author Organization [place] Address [address] [facility] [place] [address] Care Team Providers Name Role Phone Kalin Suh MD Primary Care Provider Reason for Visit Reason Comments ER F/U f/u ER, was seen at [facility] ER on 06/01/2017 for hematuria Encounter Details Date Type Department Care Team Description [facility] with [facility] (Primary Dx); [facility] [place] Melissa Frey MD Nausea; [address] [address] [address] Insomnia, unspecified type; [place], [place] Cannabi s abuse, continuous - Mild [id number] [phone] Social History Tobacco Use Types Packs/Day Years [...] Sign Reading Time Taken Comments Blood Pressure 119/71 06/03/2017 3:07 PM CDT Pulse 74 06/03/2017 3:07 PM CDT Temperature 36.7 ??C (98.1 ??F) 06/03/2017 3:07 PM CDT Respiratory Rate 16 06/03/2017 3:07 PM CDT Oxygen Saturation - - Inhaled Oxygen Concentration - - Weight 50.8 kg (112 lb) 06/03/2017 3:07 PM CDT Height 163.2 cm (5' 4.25) 06/03/2017 3:07 PM CDT Body Mass Index 19.08 06/03/2017 3:07 PM CDT documented in this encounter Patient Instructions Patient InstructionsMelissa Young MD - 06/03/2017 3:00 PM CDT Avoid use of cannabis as this can interrupt your sleep Recommend melatonin for now Follow up with psychiatrist as soon as possible Complete course of antibiotics documented in this encounter Progress Notes Melissa Young MD - 06/03/2017 3:00 PM CDT SUBJECTIVE: Joel Amos is a 22 year old female who presents to clinic today for the following health issues: ED/UC Followup: Facility: [facility] Date of visit: 06/01/2017 Reason for visit: hematuria Current Status: feeling nausea and slight burning with urination Patient presents for ER follow up. Was diagnosed with acute cystitis with hematuria 2 days ago. States she no longer has visible blood in urine and back pain is improved. She does however continueto have some burning with urination and nausea. Also reports insomnia for the last several days. Has been smoking cannabis- states this used to helpher sleep but not so much anymore. Does have a history of bipolar disorder- due to see psychiatrist in 3 weeks but wonders what she can do prior to that visit. Problem list and histories reviewed & adjusted, [...] as needed this visit by clinical staffTobacco Reviewed and updated as needed this visit by Provider ROS: Constitutional, gi, gu, psych systems are negative, except as otherwise noted. OBJECTIVE: BP 119/71 (BP Location: Right arm, Patient Position: Chair, Cuff Size: Adult Regular) Pulse 74 Temp 98.1 ??F (36.7 ??C) (Oral) Resp 16 Ht 5' 4.25 (1.632 m) Wt 112 lb (50.8 kg) LMP 05/18/2017 ? No BMI 19.08 kg/m2 Body mass index is 19.08 kg/(m^2). GENERAL: healthy, alert and no distress RESP: lungs clear to auscultation - no rales, rhonchi or wheezes CV: regular rate and rhythm, normal S1 S2, no S3 or S4, no murmur, click or rub, no peripheral edemaand peripheral pulses strong ABDOMEN: bowel sounds normal, mild TTP RLQ, mild CVAT- left Diagnostic Test Results: Results for orders placed or performed in visit on 06/03/17 (from the past 24 hour(s)) *UA reflex to Microscopic and Culture ([facility] [facility] (except [place]) Result Value Ref Range Color Urine Yellow Appearance Urine Clear Glucose Urine Negative NEG^Negative mg/dL Bilirubin Urine Negative NEG^Negative Ketones Urine Negative NEG^Negative mg/dL Specific [place] Urine 1.020 1.003 - 1.035 Blood Urine Trace (A) NEG^Negative pH Urine 6.0 5.0 - 7.0 pH Protein Albumin Urine Negative NEG^Negative mg/dL Urobilinogen Urine 0.2 0.2 - 1.0 EU/dL Nitrite Urine Negative NEG^Negative Leukocyte Esterase Urine Trace (A) NEG^Negative Source Midstream Urine Urine Microscopic Result Value Ref Range WBC Urine 2-5 (A) OTO2^O - 2 /HPF RBC Urine O - 2 OTO2^O - 2 /HPF Squamous Epithelial /LPF Urine Many (A) FEW^Few /LPF Bacteria Urine Few (A) NEG^Negative /HPF ASSESSMENT/PLAN: 1. Acute cystitis with hematuria - improving. - *UA reflex to Microscopic and Culture ([facility] (except [place] and [place]) - Urine Microscopic - phenazopyridine (PYRIDIUM) 200 MG tablet; Take 1 tablet (200 mg) by mouth 3 times daily as needed for pain or irritation Dispense: 9 tablet; Refill: 0 2. Nausea - ondansetron (ZOFRAN) 4 MG tablet; Take 1 tablet (4 mg) by mouth every 8 hours as needed for nauseaDispense: 20 tablet; Refill: 0 3. Insomnia, unspecified type - recommend melatonin OTC for now. 4. Cannabis abuse, continuous - Mild - recommend avoiding use of cannabis as this can cause insomnia as well. See Patient Instructions Melissa Young MD [facility] documented in this encounter Nursing Notes Nitza Pugh CMA - 06/03/2017 3:00 PM CDT Chief Complaint Patient presents with ??? ER F/U f/u ER, was seen at [facility] on 06/01/2017 for hematuria Initial BP 119/71 (BP Location: Right arm, Patient Position: Chair, Cuff Size: Adult Regular) Pulse 74 Temp 98.1 ??F (36.7 ??C) (Oral) Resp 16 Ht 5' 4.25 (1.632 m) Wt 112 lb (50.8 kg) LMP 05/18/2017 ? No BMI 19.08 kg/m2 Estimated body mass index is 19.08 kg/(m^2) as calculated from the following: Height as of this encounter: 5' 4.25 (1.632 m). Weight as of this encounter: 112 lb (50.8 kg). Medication Reconciliation: complete Nitza Pugh/PACK WORKER [place] documented in this encounter Plan of Treatment Not on filedocumented as of this encounter Procedures Procedure Name Priority Date/Time Associated Comments Diagnosis URINE MICROSCOPIC Routine 06/03/2017 3:14 PM Acute cystitis wi th Results for this CDT hematuria procedure are i n the results section. UA MACROSCOPIC WITH Routine 06/03/2017 3:14 PM Acute cystitis with Results for this REFLEX TO MICROSCOPIC CDT hematuria proced ure are in AND CULTURE the results section. documented in this encounter Results (ABNORMAL) Urine Microscopic (06/03/2017 3:14 PM CDT) Analysis Performed At Patho logist Time Signature WBC Urine 2-5 (A) OTO2^O - 2 06/03/2017 [facility] /HPF 3:27 PM CDT [facility] [place] RBC Urine O - 2 OTO2^O - 2 06/03/2017 [facility] /HPF 3:27 PM CDT [facility] Squamous Many (A) FEW^Few 06/03/2017 [place] Epithelial /LPF /LPF 3:27 PM CDT [facility] Urine [facility] [place] Bacteria Urine Few (A) NEG^Negati 06/03/2017 [place] ve /HPF 3:27 PM CDT [facility] Specimen Anatomical Collection Method Collection Time Receive d Time (Source) Location / / Volume Laterality 06/03/2017 3:14 PM 7 3:15 CDT PM CDT Melissa Young MD LAB - URINE ORDERABLES Performing Organization Address City/State/ZIP Code Phon e Number [facility] [address] [place] [address] (ABNORMAL) *UA reflex to Microscopic and Culture ([place] [facility] [place] [facility] (except [place]) (06/03/2017 3:14 PM CDT) Patholo gist Method Time Signature Color Urine Yellow 06/03/2017 [place] 3:27 PM CDT [facility] [place] Appearance Urine Clear 06/03/2017 [place] 3:27 PM CDT [facility] [place] [place] Glucose Urine Negative NEG^Negat 06/03/2017 [place] herrera mg/dL 3:27 PM CDT [facility] Bilirubin Urine Negative NEG^Negat 06/03/2017 [place] herrera 3:27 PM CDT [facility] [place] Ketones Urine Negative NEG^Negat 06/03/2017 [place] herrera mg/dL 3:27 PM CDT [facility] [place] Specific [place] 1.020 1.003 - 06/03/2017 [place] Urine 1.035 3:27 PM CDT [facility] Blood Urine Trace (A) NEG^Negat 06/03/2017 [place] herrera 3:27 PM CDT [facility] [place] pH Urine 6.0 5.0 - 7.0 06/03/2017 [place] pH 3:27 PM CDT [facility] Protein Albumin Negative NEG^Negat 06/03/2017 [place] Urine herrera mg/dL 3:27 PM CDT [facility] [place] Urobilinogen 0.2 0.2 - 1.0 06/03/2017 [place] Urine EU/dL 3:27 PM CDT [facility] Nitrite Urine Negative NEG^Negat 06/03/2017 [place] herrera 3:27 PM CDT [facility] Leukocyte Trace (A) NEG^Negat 06/03/2017 [place] Esterase Urine herrera 3:27 PM CDT [facility] Source Midstream 06/03/2017 [place] Urine 3:27 PM CDT [facility] Specimen (Source) Anatomical Collection Method Collection Time Re ceived Time Location / / Volume Laterality Examination of 06/03/2017 3:14 06/03/2017 3:15 midstream urine PM CDT PM CDT specimen (procedure) Melissa Young MD LAB - URINE ORDERABLES Performing Organization Address City/State/[facility] Code Phon e Number [facility] [address] [place] [address] documented in this encounter Visit Diagnoses Diagnosis Acute cystitis with hematuria - Primary Acute cystitis Nausea Nausea alone Insomnia, unspecified type Cannabis abuse, continuous - Mild Cannabis abuse, continuous documented in this encounter Additional Health Concerns Assessment Noted Time PHQ-9 Depression Total Score: 17 03/03/2017 7:16 AM CD T documented as of this encounter Care Teams Histopathology Technician Relationship Specialty Start Date End Date Kalin Suh MD PCP - General Family Practice 07/04/16 06/15/17 [address] [place] [address] documented as of this encounter
--- OUTSIDE RECORDS SUMMARY | 2022-09-05 18:58 | XMS_ITS | Encounter Summary ---
:1995 Author Organization [place] Address [facility] [facility] [place] [address] Care Team Providers Name Role Phone Kalin Suh MD Primary Care Provider Reason for Visit Reason Comments Chart Review Please SW Encounter Details Date Type Department Care Team Description 05/20/2017 Care Coordination [facility] Kalin Suh MD Chart Review Please Care Coordination [address] [facility] () [address] [place] [address] [phone] (Work) [phone] Social History Tobacco Use Types Packs/Day Years [...] this encounter Progress Notes Tamiko Simons - 05/20/2017 8:50 AM CDT Clinic Care Coordination Contact Referral Source: PCP Clinical Data: Logistics Manager Outreach SW reviewed pt's chart as pt was indicated to be open to clinic care coordination services. Per chart review, SW attempted to reach pt 2x without a response. Plan: Logistics Manager mailed out care coordination introduction letter on 03/02/17. Logistics Manager will do no further outreaches at this time. ADRIANO Hodges, [facility] Social Work - Logistics Manager [facility] Jesu Zavala and [place] documented in this encounter Plan of Treatment Not on filedocumented as of this encounter Visit Diagnoses Not on filedocumented in this encounter Additional Health Concerns Assessment Noted Time PHQ-9 Depression Total Score: 17 03/03/2017 7:16 AM CD T documented as of this encounter Care Teams Surgical Services Asst Relationship Specialty Start Date End Date Kalin Suh MD PCP - General Family Practice 07/04/16 06/15/17 [address] [place] [address] documented as of this encounter
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
--- OUTSIDE RECORDS SUMMARY | 2022-09-05 18:59 | XMS_ITS | Encounter Summary ---
:1995 Author Organization [employer] Address [address] [facility] [place] [address] Care Team Providers Name Role Phone [facility], [facility] Primary Care Provider [phone] Reason for Visit Reason Comments Rule out rupture of membranes Auth/Cert - Closed Specialty Diagnoses / Procedures Referred By Contact Refer red To Contact marketing designer Diagnoses Indication for care in labor or delivery Active labor Spontaneous vaginal delivery Rh Procedures SECTION STANDBY [address] [place], [place] [address] Phone: Fax: Referral ID Status Reason Start Date Expiration Date Visits Requ ested Visits Authorized [id number] Closed 1 1 Encounter Details Date Type Department Care Team Description 03/24/2015 Surgery [facility] Seymour Ko MD Not Performed PLACE [facility] es [address] [facility] ON STAND, SURGERY [address] [place] [address] TEAM, [place] [address] SECTION [id number] [phone] Social History Tobacco Use Types Packs/Day Years Used Date Smoking Tobacco: Never Smokeless Tobacco: Never Alcohol Use Standard Drinks/Week [...] Sign Reading Time Taken Comments Blood Pressure 158/88 03/28/2015 5:14 PM CDT Pulse 75 03/28/2015 9:47 AM CDT Temperature 37 ??C (98.6 ??F) 03/28/2015 5:14 PM CDT Respiratory Rate 18 03/28/2015 5:14 PM CDT Oxygen Saturation 97% 03/25/2015 4:00 PM CDT Inhaled Oxygen Concentration - - Weight - - Height - - Body Mass Index - - documented in this encounter Discharge Summaries Seymour Ko MD - 05/05/2015 5:44 PM CDT Joel is an 19 year old who was admitted [facility] L/D at 37 weeks gestation with premature rupture of membranes TWIN . She went on to deliver both twins vaginally with no complications on 03/24/2015. On PPD 1 Joel developed elevated BPs. On PPD 2 her LFTs were noted to be elevated. A diagnosis of severe PIH was made. She was started on MgSO4 x 24 hours and Labetalol. She was discharged on 03/28/2015 PPD 4 with PO Labetalol, pain meds. Her BPs were improving as well has the LFTs. She will have a nurse home visit and RTC 1 week. She was given PIH precautions. documented in this encounter Discharge Instructions Discharge InstructionsBonnie Zepeda RN - 03/28/2015 5:40 PM CDT Vaginal Delivery Instructions Activity ?? Ask family and friends for help when you need it. ?? Do not place anything in your vagina for 6 weeks. ?? You are not restricted on other activities, but take it easy for a few weeks to allow your body to recover from delivery. You are able to do any activities you feel up to that point. ?? No driving until you have stopped taking your pain medications (usually two weeks after delivery). Call your health care provider if you have any of these symptoms: ?? Increased pain, swelling, redness, or fluid around your stiches from an episiotomy or perineal tear. ?? A fever above 100.4 F (38 C) with or without chills when placing a thermometer under your tongue. ?? You soak a sanitary pad with blood within 1 hour, or you see blood clots larger than a golf ball. ?? Bleeding that lasts more than 6 weeks. ?? Vaginal discharge that smells bad. ?? Severe pain, cramping or tenderness in your lower belly area. ?? A need to urinate more frequently (use the toilet more often), more urgently (use the toilet veryquickly), or it gabriel when you urinate. ?? Nausea and vomiting. ?? Redness, swelling or pain around a vein in your leg. ?? Problems or a red or painful area on your breast. ?? Chest pain and cough or are gasping for air. ?? Problems coping with sadness, anxiety, or depression. If you have any concerns about hurting yourself or the baby, call your provider immediately. The Safe Place for Newborns law allows you to bringyour baby to the hospital up to 7 days, no questions asked. ?? You have questions or concerns after you return home. Keep your hands clean: Always wash your hands before touching your perineal area and stitches. This helps reduce your risk of infection. If your hands aren't dirty, you may use an alcohol hand-rub to clean your hands. Keep your nails clean and short. documented in this encounter Medications at Time of Discharge Medication Sig Dispensed Refills Start Date End Date amoxicillin-clavulanate Take 1 tablet by 18 tablet 0 201406/18/2015 (AUGMENTIN) 500-125 MG mouth every 8 hours per tabletIndications: Skin and Soft Tissue Infection citalopram (CELEXA) 20 Take 1 tablet (20 60 tablet 6 201406/01/2016 MG tabletIndications: mg) by mouth daily Anxiety ibuprofen (ADVIL,MOTRIN) Take 1-2 tablets 120 tablet 0 03/2606/18/2015 400 MG (400-800 mg) by tabletIndications: mouth every 6 hours Spontaneous vaginal as needed for other delivery (cramping) labetalol (NORMODYNE) Take 1 tablet (200 50 tablet 0 201406/18/2015 200 MG mg) by mouth 3 times tabletIndications: daily Hypertension Misc. Devices (BREAST 1 each daily as 1 Device 0 5 06/01/2016 PUMP) MISCIndications: needed Spontaneous vaginal delivery oxyCODONE (ROXICODONE) 5 Take 1 tablet (5 mg) 30 tablet 0 0 03/28/2015 06/18/2015 MG immediate release by mouth every 4 tabletIndications: hours as needed for Spontaneous vaginal moderate to severe delivery pain Vit-Fe Take 1 tablet by 0 12/07/2014 Fumarate-FA ( mouth Take 1 tablet MULTIVITAMIN PLUS IRON) by mouth 27-0.8 MG TABS per tablet Vit-Fe Take 1 tablet by 100 tablet 3 08/03/2014 Fumarate-FA ( mouth daily VITAMINS PLUS) 27-1 MG TABSIndications: Supervision of normal first , first trimester senna-docusate Take 1-2 tablets by 30 tablet 0 03/26/2015 0 06/18/2015 (SENOKOT-S;PERICOLACE) mouth 2 times daily 8.6-50 MG per tabletIndications: Spontaneous vaginal delivery documented as of this encounter Progress Notes Bonnie Zepeda RN - 03/28/2015 5:22 PM CDT Patient denies any pain at this time. She is ambulating in the room, voiding large amounts and denies any clots. Reflexes are normal, no clonus noted and she denies any headache, blurred vision or epigastric pain. Blood pressure is still elevated - taking labetalol. Babies are being transferred to thepediatric unit for phototherapy - parents to accompany babies. Mj Petit MD - 03/28/2015 8:23 AM CDT AFebrile. BP is is still elevated to 153/93. AST this am is 27. Plan discharge later today, discharge instructions given Seymour Ko MD - 03/27/2015 7:08 AM CDT [facility] Progress Note Subjective: This is the patient's third day since Vaginal delivery. She is doing well except she feels tired due to the MgSO4. She is urinating on her own. Pain is controlled with medication. Objective: Vital signs stable except BPs. Improving with labetalol. EXAM: Constitutional: healthy, alert, no distress. Abdomen: Abdomen soft, non-tender. BS normal. No masses, fundus is firm. JOINT/EXTREMITIES: extremities normal Last hemoglobin was HEMOGLOBIN Date Value Ref Range Status 03/27/2015 13.1 11.7 - 15.7 g/dL Final ] Assessment: PPD 3 pre eclampsia with elevated BPs and AST. Currently on MgSO4. Plan: Labs pending from this am. Continue MgSO4 x 24 hours. Continue Labetalol 200 mg BID. Anticipate discharge tomorrow Seymour Ko MD Yolande Venegas MD - 03/26/2015 12:39 PM CDT Via phone: Reviewed pre-e diagnosis with BP and Labs. Discussed Labetalol as well as starting Magnesium Sulfate. Pt is agreeable. Will recheck labs in the AM. Yolande Veengas MD Farzad Pan LSW - 03/26/2015 10:23 AM CDT D) CLAY following Joel, I) Joel scored 14 on EPDS and answered Hardly Ever to risk of harm. She reports fleeting thoughts of cutting self but states it's old thoughts that she wouldn't act on. She started her antidepressant today and hopes this helps. CLAY discussed safety plan if she does feel like harming herself. She will tell FOB or call someone. She states I will probably see a counselor. She declined offer of CLAY to arrange appointment for her today. She does not have a counselor, SW gave counseling resources as well as written information on having a bad day vs depression. Joel states CESAR has anxiety and depression as well so he understands it. Joel is calming a fussy baby and CESAR is in bed stating I feel guilty whenever someone comes in she's taking care of the babies and I'm in bed, SW encouraged himto care for babies and mom. Help her be rested and hydrated etc. A) Joel is A&O tired but up and around. FOB could be more helpful. She reports to have help athome and is happy to be discharging today. She has good insight to her mental health and will seek help as needed. P) No further d/c needs. SW available as needed. Yolande Venegas MD - 03/26/2015 8:34 AM CDT [facility] Progress Note Subjective: This is the patient's second day since Vaginal delivery. She is doing well. She is urinating on her own. Pain is controlled with medication. Objective: All vitals stable Temp: 97.9 ??F (36.6 ??C) Temp src: Oral BP: 145/88 mmHg Pulse: 79 Resp: 16 SpO2: 97 % EXAM: Constitutional: healthy, alert, no distress. Abdomen: Abdomen soft, non-tender. BS normal. No masses, fundus is firm. JOINT/EXTREMITIES: extremities normal Last hemoglobin was HEMOGLOBIN Date Value Ref Range Status 03/26/2015 13.1 11.7 - 15.7 g/dL Final ] Assessment: Stable course. Plan: Routine care. Ambulation encouraged Breast feeding strategies discussed Pain control measures as needed Reportable signs and symptoms dicussed with the patient Discharge later today Labs pending this AM. Please review prior to D/C. Will send home with Augmentin and citalopram Yolande Venegas MD Farzad Pan LSW - 03/25/2015 3:29 PM CDT D) SWS responding to MD referral I) SWS met with Joel who is 19 year old SPK with FOB Win Hilario involved. They live together at [address] [facility] with Win's parents and brother. Twins Genesis Cervantes and Sade Shelley are their first children together and they are prepared for them at home. Joel is on WIC and has a PHN Jaswinder with [facility]. SW faxed referral to Jaswinder per Joel. Joel has a history of depression and anxiety all my life. She states I'm sure I'll get depression. She states she took Citalopram for 2 months and that worked well then she stopped due to . SW discussed baby blues/ depression and gave information on this. She is aware of her signs and symptoms and will discuss this with her doctor as needed. She has some family stressors My family is crazy she is trying to stay out of this. She feels supported and safe living with Win's family. SWS also gave Parent Resource Guide with SWS contact information. A) Joel is A&O with good affect and eye contact. She is bonding well with baby. She has good insight to her mental health symptoms. Extended family are nearby and supportive. P) No further d/c needs at this time. SWS available upon request. Mj Petit MD - 03/25/2015 8:43 AM CDT #1 TWINS 37 weeks. Pt states doing well. Pain well controlled BP remains elevated on occassion. On Hydralazine. Temperature normal. On Unasyn for elevated temp with elevated WBC. Nursing Fundus firm, moderate flow. Voiding w/o problems. Had BM. Ext w/o VV or pain. Trace edema. Post- course complicated with Elevated BP and Temperature with increase WBC. Improving with current TX of Hydralazine and Unasyn. Plan routine post- care. Seymour Ko MD - 03/24/2015 6:44 PM CDT twin 1 female twin 2 female placenta x2 (twin 1 with velamentous insertion of the cord) Small hymenal tear repaired TZV=733 cc documented in this encounter H&P Notes Seymour Ko MD - 03/24/2015 11:38 AM CDT There has been no significant change in Joel's general health status based upon review of the records, nursing database and exam. Joel is a 19 year old IUP at 37 weeks with TWIN gestation. Vertex/vertex by bedside scan today. Uncomplicated except for PTL at 30 weeks gestation. GBS negative Category 1 tracing on both babies Scan Vertex/vertex VSS afebrile heent normal Abdomen soft and non tender Gravid Cervix per RN 3cm/90/vertex +gross rupture of membranes Assessment IUP at 37 weeks Twin gestation vertex/vertex SPROM and early labor Plan Admit Epidural/pitocin prn Anticipate vaginal delivery documented in this encounter Miscellaneous Notes Plan of Care - Bonnie Zepeda RN - 03/28/2015 7:25 PM CDT Problem: Goal Outcome Summary Goal: Goal Outcome Summary Outcome: Adequate for Discharge Date Met: 03/28/15 Patient denies any pain at this time. Babies are being transferred to the pediatric unit - mother plans on staying with them. Medications and breast milk given. No further questions at this time. Note - Symone Sarmiento RN - 03/28/2015 2:49 PM CDT visit. Visited mom this am and she reports her milk is in and she plans to go home with atleast one baby and leave the other here on Peds with her EBM. She feels she can handle whatever she needs to do and is anxious to leave. She nurses, pumps and offers EBM pc and will continue this at home for now.Encouraged mom to call us PRN. Plan of Care - Brii Sheriff RN - 03/28/2015 1:24 PM CDT Pt to stay until [id number] Petit to due to blood pressures Plan of Care - Brii Sheriff RN - 03/28/2015 11:15 AM CDT Problem: Goal Outcome Summary Goal: Goal Outcome Summary Outcome: Improving Pt continues to have high blood pressure and taking oral labetalol 3x day, denies any BOB, blurry vision or RUQ pain, reflexes normal no clonus, feeding babies well every 2-3 hours Plan of Care - Nakia De León RN - 03/28/2015 4:40 AM CDT Problem: Goal Outcome Summary Goal: Goal Outcome Summary Outcome: No Change B/p remains slightly elevated, normal reflexes w/ no clonus. Denies headache, visual disturbances, or epigastric pain. on demand. Significant other at bedside, very supportive. Both parents independent w/ infant cares. Expected to d/c home today. Plan of Care - Bonnie Zepeda RN - 03/27/2015 10:16 PM CDT Problem: Goal Outcome Summary Goal: Goal Outcome Summary Outcome: Improving Patient is voiding large amounts; tolerating a regular diet; ambulating in the room and independent with cares. She did complain of a headache earlier in the shift but claims that she has headaches often (not related to ). She was medicated which was effective. She denies any blurred vision or epigastric pain; reflexes are normal and no clonus is noted. Blood pressure is slightly elevated - encouraged to stay on her side whenever she is in bed. Father of the babies is at the bedside and has been involved and appropriate all evening. ROP papers have been given. Plan of Care - Brii Sheriff RN - 03/27/2015 2:55 PM CDT Pt informed on need to have someone here to be with babies as they are discharged Plan of Care - Merry Rodríguez - 03/27/2015 4:26 AM CDT Problem: Goal Outcome Summary Goal: Goal Outcome Summary Outcome: Improving Pt has met all goals for this shift. Output WDL, all checks associated with admin of Mg and HTN management WDL.See associated flow sheets for more info Plan of Care - Khushi Jesus RN - 03/26/2015 7:50 PM CDT Problem: Goal Outcome Summary Goal: Goal Outcome Summary Outcome: Improving Patient meeting expected goals for this shift. Blood pressures and other vitals are within describedlimits; see flow sheets. Significant other at bedside and very supportive throughout entire shift. Independent with self and cares. Social work has seen patient for EPDS score of 14; see note. Anticipate discharge to home 03/27/15. Continue to monitor I&O, vital signs, reflexes and clonus and update physician per orders. Plan of Care - Anne Mota RN - 03/26/2015 3:01 PM CDT Problem: Goal Outcome Summary Goal: Goal Outcome Summary Outcome: Change based on patient need/priority Date Met: 03/26/15 Patient has elevated BP's and AST. Patient started PO Labetalol and IV Magnesium sulfate. Afebrile during shift. Pain managed <4. Breast feeding. Breast pumping started. I&O's. Plan of Care - Anne Mota RN - 03/26/2015 2:57 PM CDT Problem: , Vaginal Delivery (Adult) Goal: Signs and Symptoms of Listed Potential Problems Will be Absent or Manageable (, Vaginal Delivery) Signs and symptoms of listed potential problems will be absent or manageable by discharge/transitionof care (reference , Vaginal Delivery (Adult) CPG). Outcome: Change based on patient need/priority Date Met: 03/26/15 Provider Notification - Anne Mota RN - 03/26/2015 11:40 AM CDT 03/26/15 1140 Provider Notification Provider Name/Title Dr Venegas Method of Notification Phone Request Evaluate-Remote Notification Reason Vital Signs Change Notified of elevated BP's. Orders received for Labetalol and Magnesium sulfate (please see orders). No D/C today per orders. Note - Symone Sarmiento RN - 03/26/2015 10:44 AM CDT visit. Assisted with latch of both babies in tandem nursing. Mom feels much better today nursing babies together. She has a good twin pillow which supports both well for nursing. Babies are latching well and swallowing. Mom does breast compression as well. She is fairly confident going home with both babies. Tried to instruct dad in how he could help position babies for nursing with blankets. He was a little interested then sat back down and did not help further. Encouraged mom to call us PRN and offered OP lact services if needed. Provider Notification - Joanie Mitchell RN - 03/26/2015 9:44 AM CDT 03/26/15 0942 Provider Notification Provider Name/Title Dr. Venegas Method of Notification Phone Request Evaluate-Remote Notification Reason Other (Pt. requests D/C) Reported to MD that pt. Requests discharge. MD ok with pt discharging home on precautions. Call withany headache, visual disturbances, right upper quadrant pain. Patient to present to clinic tomorrow morning for blood pressure check/blood draw. Provider Notification - Joanie Mitchell RN - 03/26/2015 8:55 AM CDT 03/26/15 0854 Provider Notification Provider Name/Title Dr. Venegas Method of Notification Phone Request Evaluate-Remote Notification Reason Lab Results Notified MD of all lab results this morning. MD states patient will either need to stay overnight tohave labs rechecked tomorrow morning, or she can discharge and needs to follow up in clinic first thing tomorrow morning for repeat labs. Will discuss with pt. and update MD of patient's decision. Plan of Care - Merry Rodríguez - 03/26/2015 4:26 AM CDT Problem: Goal Outcome Summary Goal: Goal Outcome Summary Outcome: Improving Pt has met all goals for this shift. See associated flow sheets for more info Plan of Care - Akanksha Thompson RN - 03/25/2015 9:39 PM CDT Problem: Goal Outcome Summary Goal: Goal Outcome Summary Outcome: Improving The patient is meeting expected goals for vaginal delivery. She reports no difficulty with and is tandem feeding her twins when possible. She is also utilizing hand expression and was encouraged to start pumping. She appears to be coping well. Blood pressure: 135/77 and 143/77 tonight. Continue to monitor and support patient. Provider Notification - Akanksha Thompson RN - 03/25/2015 5:19 PM CDT 03/25/15 1600 Provider Notification Provider Name/Title Seymour Ko MD Method of Notification Phone Request Evaluate-Remote Notification Reason Medication Request (patient requested to stop IV antibiotics; IV access lost) Dr. Ko was paged to notify of loss of IV access and verbalize patient's request to stop IV antibiotics (stated that she wanted to refuse them) and take oral antibiotic, if still required. Dr. Ko asked for order for Augmentin to be placed. The patient is to take Augmentin three times a day for seven days. Note - Symone Sarmiento RN - 03/25/2015 3:15 PM CDT visit. Attempted to visit earlier when pictures were being taken. Returned later. When asked how she was doing she said she felt overwhelmed by all the people coming around. Babies have NW but lately are spitty and will not latch. Offered assistance with feedings and even though one twin wasrooting mom did not want to try at the time. Asked about tandem nursing and she said she has decidedto nurse the babies separately. Asked mom to keep open to feeding together if they both awakened at the same time. Left mom after short visit to allow her space and enc her to ask for help PRN. Mom called back into the room now and assisted with tandem nursing per mom's request as both babies were awake together. Both are NW. Follow up tomorrow. Plan of Care - Anne Mota, ERROL - 03/25/2015 1:45 PM CDT Problem: Goal Outcome Summary Goal: Goal Outcome Summary Outcome: Improving Patient meeting expected goals. Pain rating <4, denies pain. BP's 146/95 and afebrile all shift. IV saline locked, flushed well. Pt not open to education today. Breast feeding well. Social work services consult ordered. Plan of Care - Padmini Edmonds RN - 03/25/2015 4:55 AM CDT Problem: , Vaginal Delivery (Adult) Goal: Signs and Symptoms of Listed Potential Problems Will be Absent or Manageable (, Vaginal Delivery) Signs and symptoms of listed potential problems will be absent or manageable by discharge/transitionof care (reference , Vaginal Delivery (Adult) CPG). Outcome: No Change Denies pain or need for pain medication. Plan of Care - Padmini Edmonds RN - 03/25/2015 4:54 AM CDT Problem: Goal Outcome Summary Goal: Goal Outcome Summary Outcome: No Change Has voided 3 times since cathter removal. Breast feeding with minimal assist. Bonding with babies. Plan of Care - Padmini Edmonds RN - 03/24/2015 10:45 PM CDT Data: Joel Roblero transferred to room 434 via wheelchair at 2245. Babies transferred via mother's arms Action: Receiving unit notified of transfer: Yes. Patient and family notified of room change. Belongings sent to receiving unit. Accompanied by Registered Nurse. Oriented patient to surroundings. Call light within reach. ID bands double- checked with receiving RN. Response: Patient tolerated transfer and is stable. Provider Notification - Digna Romero RN - 03/24/2015 9:[address] Ko updated re: labs, BP's, temp of 101.1. Order for Unasyn Provider Notification - Digna Romero RN - 03/24/2015 8:[address] Ko updated of increasing BP's. 140-150 over 90's -100. Order for PIH labs and may give hydralazine if needed. Will call with lab results. Plan of Care - Mayra Juarez RN - 03/24/2015 7:50 PM CDT Problem: Goal Outcome Summary Goal: Goal Outcome Summary Outcome: Therapy, progress toward functional goals as expected 1515: Assumed care on patient. Report received from Ana Lezama RN. 1635: Patient feeling a lot of rectal pressure. SVE done. SVE 10/100/+2. Dr. Ko updated on patientstatus. Will start pushing with patient. 1655: Patient started pushing. 1700: Patient close to delivery of twin #1. Patient taken to OR [address] Ko paged for delivery. 1707: Patient in OR 7. Patient set up to start pushing. [employer] paged to come for delivery. 1710: [employer] here for delivery. 1715: Delivery of baby girl. Apgars 8,9. 1716: Orders from Dr. Ko to start pitocin at 2mu/min. Pitocin augmentation started. 1720: Patient started pushing for twin #2. 10L O2 given to patient for FHts having variable decels. 1825: Delivery of baby twin #2. Apgars 8,9. Delee suction for 5cc of clear mucous. Mayra Juarez RN L&D Delivery Note - Seymour Ko MD - 03/24/2015 6:57 PM CDT Joel Roblero is an 19-year-old, 2, now para 2 with intrauterine at 37 weeks gestation, twin , vertex/vertex position, complaining of spontaneous premature rupture of membranes at home this morning. On admission, she was indeed noted to have gross rupture of membranes. She was also noted to be in labor, having contractions every 2-3 minutes. She was noted to be 3 cm dilated, 90% effaced, -2 station. Ultrasound did confirm vertex/vertex position. The patient was admitted, she received an epidural anesthetic and dilated to completion within 5 hours. She then pushed several times for twin A, brought to the operating room where within 2 more contractions, the head deliveredover an intact perineum. There was a loose nuchal cord, which was reduced on the perineum. The anterior shoulder delivered easily followed by the rest of body. The baby was a female who was vigor ous and crying upon delivery. She was placed on her mother's abdomen. Examination revealed that twinB had come down head down and there was an anterior lip of the cervix. After 1 minute of delayed cord clamping, the cord was doubly clamped and ligated for twin A. The nurse practitioner was present for the delivery and did attend the baby. Meanwhile, the patient was given IV Pitocin. Uterinecontractions returned and the patient breathed through several contractions. Once the cervix was completely dilated, she began pushing. She pushed for approximately 45 minutes delivering the baby againover an intact perineum. The head delivered easily followed by the shoulders and the rest of body. The baby was a female who was vigorous and crying upon delivery. She was placed on her mother'sabdomen. Delayed cord clamping for 1 minute was observed. The cord was then doubly clamped and ligated by the father of the baby. The cord bloods were obtained for twin #1 and twin #2. The placentas del ivered easily. Twin A had a velamentous insertion of the cord, the placentas were sent for pathology. The uterus became firm with vigorous uterine massage, IV Pitocin and 800 mcg of Cytotec was placed intra-rectally as a precaution. Estimated blood loss was 300 cc. Inspection revealed that the patientsustained a small tear along the hymenal ring, which was bleeding; this was repaired using 3-0 chromic suture x2 interrupted stitches, hemostasis was noted. The patient was placed back in the supine position, she was doing well, along with both babies, after the repair. SEYMOUR KO MD MT: [id number] Name: JOEL ROBLERO MRN: [id number] Account: [id number] : 1995 Delivery Date: 03/24/2015 Document: [id number] Provider Notification - Brii Mota RN - 03/24/2015 3:29 PM CDT 03/24/15 1528 Comments Comments Report given to Mayra Ayoub RN. She is to assume all cares. Provider Notification - Brii Mota RN - 03/24/2015 3:09 PM CDT 03/24/15 1509 Provider Notification Provider Name/Title Dr. Ko Method of Notification Electronic Page Request Evaluate - Remote Notification Reason SVE;Status Update SVE /-1. IV Flush for tachy. FHTs minimal variability. Will continue to monitor. Reporting off to Mayra Provider Notification - Brii Mota RN - 03/24/2015 2:25 PM CDT 03/24/15 1425 Provider Notification Provider Name/Title Dr. Ko Method of Notification Phone Request Evaluate - Remote Notification Reason Status Update Dr. Ko updated of UC's ever 1-2.5 minutes. FHTs minimal to moderate variability. Epidural just done, once numb will place catheter and do SVE. Orders received to text page results of SVE. Will continue to monitor. Plan of Care - Brii Mota RN - 03/24/2015 1:47 PM CDT Problem: Individualization Goal: 1. Patient Specific Preference Outcome: Improving 1250: MDA paged for orders 1330: MDA paged to come for epidural 1331: MDA on way 1342: MDA delayed 10 min 1353: MDA at bedside Plan of Care - Brii Mota RN - 03/24/2015 12:38 PM CDT Data: Patient presented to [facility] at 1100. Reason for maternal/ assessment per patient is Rule out rupture of membranes . Patient is a . record reviewed. Obstetric History T0 TAB0 SAB0 E0 M0 L0 # Outcome Date GA Lbr Stuart/2nd Weight Sex Delivery Anes PTL Lv 1 Current . Medical history: Past Medical History Diagnosis Date ??? Migraines ??? Depression ??? Anxiety . Gestational Age 37w0d. VSS. movement present. Patient denies backache, vaginal discharge, pelvic pressure, UTI symptoms, GI problems, bloody show, vaginal bleeding, edema, headache, visual disturbances, epigastric or URQ pain, abdominal pain. Support persons boyfriend present. Action: Verbal consent for EFM. Triage assessment completed. EFM applied for assessments. Uterine assessment for uterine contractions. assessment: Presumed adequate oxygenation documented (see flow record). Response: Dr. Ko informed of Leaking of Fluid, SVE change. Plan per provider is admit to inpatient. Patient verbalized agreement with plan. Patient transferred to room 409 ambulatory, oriented to room and call light. Face to Face time: 30 minutes Provider Notification - Brii Mota RN - 03/24/2015 11:36 AM CDT 03/24/15 1134 Provider Notification Provider Name/Title Dr. Ko Method of Notification At Bedside Request Evaluate in Person Notification Reason Patient Arrived;Status Update;SVE;Other (Comment) Dr. Ko at bedside for evaluation. Updated on leaking of clear fluid, amnisure sent. SVE /-2, change since last check. FHTs both reactive. Bedside ultrasound showed cephalic presentation for both twins. Intrapartum orders received. Will continue to monitor and update MD as needed. documented in this encounter Plan of Treatment Not on filedocumented as of this encounter Procedures Procedure Name Priority Date/Time Associated Diagnosis Comme nts AST Routine 03/28/2015 6:31 AM Spontaneous vaginal Re sults for this CDT delivery procedure are i n the results section. CREATININE Routine 03/27/2015 6:42 AM Spontaneous vaginal Re sults for this CDT delivery procedure are i n the results section. AST Routine 03/27/2015 6:42 AM Spontaneous vaginal Re sults for this CDT delivery procedure are i n the results section. ALT Routine 03/27/2015 6:42 AM Spontaneous vaginal Re sults for this CDT delivery procedure are i n the results section. CBC WITH PLATELETS Routine 03/27/2015 6:42 AM Spontaneous vagi nal Results for this CDT delivery procedure are i n the results section. CREATININE Routine 03/26/2015 6:35 AM Spontaneous vaginal Re sults for this CDT delivery procedure are i n the results section. AST Routine 03/26/2015 6:35 AM Spontaneous vaginal Re sults for this CDT delivery procedure are i n the results section. ALT Routine 03/26/2015 6:35 AM Spontaneous vaginal Re sults for this CDT delivery procedure are i n the results section. CBC WITH PLATELETS Routine 03/26/2015 6:35 AM Res ults for this CDT procedure are i n the results section. HEMOGLOBIN Routine 03/25/2015 6:50 AM Results f or this CDT procedure are i n the results section. URIC ACID STAT 03/24/2015 8:52 PM Results f or this CDT procedure are i n the results section. UREA NITROGEN (BUN) STAT 03/24/2015 8:52 PM Re sults for this CDT procedure are i n the results section. CREATININE STAT 03/24/2015 8:52 PM Results f or this CDT procedure are i n the results section. AST STAT 03/24/2015 8:52 PM Results f or this CDT procedure are i n the results section. ALT STAT 03/24/2015 8:52 PM Results f or this CDT procedure are i n the results section. CBC WITH PLATELETS STAT 03/24/2015 8:52 PM Res ults for this CDT procedure are i n the results section. PLACENTA PATH ORDER Routine 03/24/2015 6:29 PM Re sults for this AND INDICATIONS CDT procedure ar e in the results section. CBC WITH PLATELETS & STAT 03/24/2015 11:56 Res ults for this DIFFERENTIAL AM CDT procedure are i n the results section. ABO/RH TYPE AND Routine 03/24/2015 11:56 Results for this SCREEN AM CDT procedure are i n the results section. RUPTURE OF MEMBRANES STAT 03/24/2015 11:23 Res ults for this BY AMNISURE AM CDT procedure are i n the results section. NON-STRESS TEST 03/24/2015 12:00 - HIM SCAN AM CDT documented in this encounter Results AST (03/28/2015 6:31 AM CDT) P athologist Signature AST 29 0 - 35 U/L [facility] Specimen Anatomical Collection Method Collection Time Receive d Time (Source) Location / / Volume Laterality Blood specimen 03/28/2015 6:31 AM 015 7:07 (specimen) CDT AM CDT Seymour Ko MD LAB - BLOOD ORDERABLES Performing Organization Address City/[facility]/ZIP [facility] [place] [facility] [address] [place], [place] [address] [phone] [place] [address] [phone] (ABNORMAL) Creatinine (03/27/2015 6:42 AM CDT) [facility] gist Method Time Signature Creatinine 0.46 (L) 0.50 - [place] 1.00 [facility] mg/dL [facility] GFR Estimate >90 >60 [place] Non GFR Calc mL/min/1. RIDGES 7m2 [facility] GFR Estimate >90 >60 [place] If Black GFR Calc mL/min/1. R[facility]G ES 7m2 [facility]OSPITAL Specimen Anatomical Collection Method Collection Time Receive d Time (Source) Location / / Volume Laterality Blood specimen 03/27/2015 6:42 AM 015 6:59 (specimen) CDT AM CDT Yolande Venegas MD LAB - BLOOD ORDERABLES Performing Organization Address City/[facility]/ZIP Code Phon e Number [facility] [address] [place], [place] [address] [facility] [address] [place], [place] [address] [phone] (ABNORMAL) CBC with platelets (03/27/2015 6:42 AM CDT) Analysis Performed At Patho logist Time Signature WBC 12.6 (H) 4.0 - 11.0 [place] 10e9[facility] RBC Count 3.92 3.8 - 5.2 [place] 10e12/L [facility] Hemoglobin 13.1 11.7 - [place] 15.7 g/dL [facility] Hematocrit 38.2 35.0 - [place] 47.0 % [facility] MCV 97 78 - 100 [facility] MCH 33.4 (H) 26.5 - [place] 33.0 pg [facility] MCHC 34.3 31.5 - [place] 36.5 g/dL [facility] RDW 13.4 10.0 - [place] 15.0 % [facility] Platelet Count 209 150 - [address] Specimen Anatomical Collection Method Collection Time Receive d Time (Source) Location / / Volume Laterality Blood specimen 03/27/2015 6:42 AM 015 6:59 (specimen) CDT AM CDT Yolande Venegas MD LAB - BLOOD ORDERABLES Performing Organization Address City/State/ZIP Code Phon e Number [place] [address] [place], [place] [address] [facility] [address] [place], [place] [address] [phone] (ABNORMAL) ALT (03/27/2015 6:42 AM CDT) P athologist Signature ALT 74 (H) 0 - 50 U/L [facility] Specimen Anatomical Collection Method Collection Time Receive d Time (Source) Location / / Volume Laterality Blood specimen 03/27/2015 6:42 AM 015 6:59 (specimen) CDT AM CDT Yolande Venegas MD LAB - BLOOD ORDERABLES Performing Organization Address City/State/ZIP Code Phon e Number [facility] [address] [place], [place] [address] [facility] [address] [place], [place] [address], [facility] [phone] (ABNORMAL) AST (03/27/2015 6:42 AM CDT) athologist Signature AST 60 (H) 0 - 35 U/L [facility] Specimen Anatomical Collection Method Collection Time Receive d Time (Source) Location / / Volume Laterality Blood specimen 03/27/2015 6:42 AM 015 6:59 (specimen) CDT AM CDT Yolande Venegas MD LAB - BLOOD ORDERABLES Performing Organization Address City/[facility]/ZIP Code Phon e Number [facility] [address] [place], [place] [address] [place] [address] [address] [place], [place] [address], [facility] [phone] Creatinine (03/26/2015 6:35 AM CDT) [facility] Method Time Signature Creatinine 0.56 0.50 - [place] 1.00 [facility] mg/dL [facility] GFR Estimate >90 >60 [place] Non GFR Calc mL/min/1. RIDGE 7m2 [facility] GFR Estimate >90 >60 [place] If Black GFR Calc mL/min/1. RIDG ES 7m2 HOSPITAL Specimen Anatomical Collection Method Collection Time Receive d Time (Source) Location / / Volume Laterality 03/26/2015 6:35 AM 5 6:53 CDT AM CDT Estrella Hays PA-C LAB - BLOOD ORDERABLES Performing Organization Address City/State/ZIP Code Phon e Number [facility] [address] [place], [place] [address] [place] [address] [address] [place], [place] [address], [facility] [phone] (ABNORMAL) AST (03/26/2015 6:35 AM CDT) athologist Signature AST 69 (H) 0 - 35 U/L [facility] Specimen Anatomical Collection Method Collection Time Receive d Time (Source) Location / / Volume Laterality 03/26/2015 6:35 AM 5 6:53 CDT AM CDT Estrella Hays PA-C LAB - BLOOD ORDERABLES Performing Organization Address City/State/ZIP Code Phon e Number [facility] [address], [place] [address] [facility] [address] [place], [place] [address], [facility] [phone] ALT (03/26/2015 6:35 AM CDT) P athologist Signature ALT 47 0 - 50 U/L [facility] Specimen Anatomical Collection Method Collection Time Receive d Time (Source) Location / / Volume Laterality 03/26/2015 6:35 AM 5 6:53 CDT AM CDT Estrella Hays PA-C LAB - BLOOD ORDERABLES Performing Organization Address City/[facility] Phon e Number [facility] [address], [place] [address] [place] [address] [address] [place], [place] [address], [facility] [phone] (ABNORMAL) CBC with platelets (03/26/2015 6:35 AM CDT) Analysis Performed At Patho logist Time Signature WBC 15.0 (H) 4.0 - 11.0 [place] 10e9/L [facility] RBC Count 3.88 3.8 - 5.2 [place] 10e12/L [facility] Hemoglobin 13.1 11.7 - [place] 15.7 g/dL [facility] Hematocrit 38.7 35.0 - [place] 47.0 % [facility] MCV 100 78 - 100 [facility] MCH 33.8 (H) 26.5 - [facility] 33.0 pg [facility] MCHC 33.9 31.5 - [place] 36.5 g/dL [facility] RDW 13.4 10.0 - [place] 15.0 % [facility] Platelet Count 187 150 - 450 [place] 10e9L [facility] Specimen Anatomical Collection Method Collection Time Receive d Time (Source) Location / / Volume Laterality Blood specimen 03/26/2015 6:35 AM 015 6:53 (specimen) CDT AM CDT Estrella Hays PA-C LAB - BLOOD ORDERABLES Performing Organization Address City/State/ZIP Code Phon e Number [facility] [address], [place] [address] [facility] [address] [place], [place] [address], [facility] [phone] Hemoglobin (03/25/2015 6:50 AM CDT) P athologist Signature Hemoglobin 12.9 11.7 - 15.7 [facility] g/dL [facility] Specimen Anatomical Collection Method Collection Time Receive d Time (Source) Location / / Volume Laterality Blood specimen 03/25/2015 6:50 AM 015 7:02 (specimen) CDT AM CDT Seymour Ko MD LAB - BLOOD ORDERABLES Performing Organization Address City/State/ZIP Code Phon e Number [facility] [address], [place] [address] [place] [address] [address] [place], [place] [address], [facility] [phone] Creatinine (03/24/2015 8:52 PM CDT) [facility] Method Time Signature Creatinine 0.53 0.50 - [place] 1.00 [place] mg/dL [facility] GFR Estimate >90 >60 [place] Non GFR Calc mL/min/1. RIDGES 7m2 [facility] GFR Estimate >90 >60 [place] If Black GFR Calc mL/min/1. RIDG ES 7m2 [facility]OSPITAL Specimen Anatomical Collection Method Collection Time Receive d Time (Source) Location / / Volume Laterality Blood specimen 03/24/2015 8:52 PM 015 8:56 (specimen) CDT PM CDT Seymour Ko MD LAB - BLOOD ORDERABLES Performing Organization Address City/State/ZIP Code Phon e Number [facility] [address], [place] [address] [facility] [address] [place], [place] [address], [facility] [phone] (ABNORMAL) Urea nitrogen (03/24/2015 8:52 PM CDT) athologist Signature Urea Nitrogen 5 (L) 7 - 19 [place] mg/dL [facility] Specimen Anatomical Collection Method Collection Time Receive d Time (Source) Location / / Volume Laterality Blood specimen 03/24/2015 8:52 PM 015 8:56 (specimen) CDT PM CDT Seymour Ko MD LAB - BLOOD ORDERABLES Performing Organization Address City/State/ZIP Code Phon e Number [facility] [address], [place] [address] [facility] [address] [place], [place] [address], [facility] [phone] (ABNORMAL) Uric acid (03/24/2015 8:52 PM CDT) athologist Signature Uric Acid 5.4 (H) 2.1 - 5.0 [place] mg/[facility] Specimen Anatomical Collection Method Collection Time Receive d Time (Source) Location / / Volume Laterality Blood specimen 03/24/2015 8:52 PM 015 8:56 (specimen) CDT PM CDT Seymour Ko MD LAB - BLOOD ORDERABLES Performing Organization Address City/State/ZIP Code Phon e Number [facility] [address], [place] [address] [facility] [address] [place], [place] [address], [facility] [phone] ALT (03/24/2015 8:52 PM CDT) athologist Signature ALT 16 0 - 50 U/L [facility] Specimen Anatomical Collection Method Collection Time Receive d Time (Source) Location / / Volume Laterality Blood specimen 03/24/2015 8:52 PM 015 8:56 (specimen) CDT PM CDT Seymour Ko MD LAB - BLOOD ORDERABLES Performing Organization Address City/State/ZIP [facility] [place] [facility] [address], [place] [address] [place] [address] [address] [place], [place] [address], [facility] [phone] AST (03/24/2015 8:52 PM CDT) P athologist Signature AST 28 0 - 35 U/L [facility] Specimen Anatomical Collection Method Collection Time Receive d Time (Source) Location / / Volume Laterality Blood specimen 03/24/2015 8:52 PM 015 8:56 (specimen) CDT PM CDT Seymour Ko MD LAB - BLOOD ORDERABLES Performing Organization Address [facility] Phon e Number [facility] [address], [place] [address] [place] [address] [address] [place], [place] [address], [facility] [phone] (ABNORMAL) CBC with platelets (03/24/2015 8:52 PM CDT) Analysis Performed At Patho logist Time Signature WBC 24.7 (H) 4.0 - 11.[address]9[facility] RBC Count 4.04 3.8 - 5.2 [place] 10e12[facility] Hemoglobin 13.6 11.7 - [place] 15.7 g/dL [facility] Hematocrit 39.0 35.0 - [place] 47.0 % [facility] MCV 97 78 - 100 [facility] MCH 33.7 (H) 26.5 - [place] 33.0 pg [facility] MCHC 34.9 31.5 - [place] 36.5 g/dL [facility] RDW 12.9 10.0 - [place] 15.0 % [facility] Platelet Count 191 150 - 450 [place] [id number] Specimen Anatomical Collection Method Collection Time Receive d Time (Source) Location / / Volume Laterality Blood specimen 03/24/2015 8:52 PM 015 8:56 (specimen) CDT PM CDT Seymour Ko MD LAB - BLOOD ORDERABLES Performing Organization Address City/State/ZIP Code Phon e Number [facility] [address], [place] [address] [facility] [address] [place], [place] [address] [phone] Placenta path order and indications (03/24/2015 6:29 PM CDT) Component Value Ref Test Analysis Performed At [facility] gist Range Method Time Signature Copath Report Patient Name: JOEL ROBLERO MR#: [id number] Specimen #: [id number] Collected: 03/24/2015 Received: 03/25/2015 Reported: 03/27/2015 12:38 Ordering Phy(s): SEYMOUR KO SPECIMEN(S): Placenta, twin FINAL DIAGNOSIS: Placenta: -Monochorionic-diamniotic twin placenta. -Intimal cushions, focal, placental disc A. -Acute chorioamnionitis, mild. - membranes without acute inflammation or decidual vasc ulopathy. -Umbilical cord of twin A with three blood vessels and velam entous insertion. -Umbilical cord of twin B with three blood vessels and felix es suggestive of early acute funisitis. Electronically signed out by: Jose Hwang M.D. CLINICAL HISTORY: ? Twin placenta. Twin 1: cord with velamentous insertio n. GROSS: The specimen is received in formalin with the patient's name and proper identification labeled twin placenta. ??The specimen consi sts of diamnionic monochorionic twin placenta. Twin A is marked wit h a single clamp on the umbilical cord and twin B is marked with two cl amps on the umbilical cord. ??Twin A. placental disc weighs 346 g and me asures 14.8 x 13.6 x 1.6 cm. ??Twin A's umbilical cord is velamentously in serted. ??Twin A umbilical cord measures 24.9 cm in length x 1 cm in diamet er. ??Twin A umbilical cord has three vessels on cross section. ??Twin B placental disc weighs 566 g and measures 19.4 x 14.5 x 2.0 cm. ??Twin B's umbilical cord is eccentrically located measuring 26.1 cm in length x 1.1 cm in diameter. ??Twin B's umbilical cord is inserted 4.4 cm from the nearest placental margin and has three vessels on cross section. ??F etal membranes are pink and semitransparent. ??The maternal surfa ce cotyledons are uniform and intact. ??Upon serial section the placental parenchyma is red-purple and spongy throughout. ??Immigration Officer sections are submitted. Cassette 1-twin A's umbilical cord and membranes Cassette 2-3-twin A's placental disc Cassette 4-twin B umbilical cord and membranes Cassette 5-6-twin B placental disc Cassette 7-dividing membrane MICROSCOPIC: Sections of placental disc of twin A show chorionic plate wi th patent blood vessels and partially denuded amnion. ??There is focal infiltration by acute inflammatory cells. ??The stem b lood vessels show focal intimal cushions. ??The terminal chorionic villi are mature and well vascularized. ??There is no evidence of chronic niharika litis or villous edema. ??The basal lamina is without abnormalities. The membranes show no evidence of acute inflammation o r decidual vasculopathy. The umbilical cord shows three blood vessels. There is no ev idence of vascular thrombosis or inflammatory infiltrates. Sections of membranous septum show solely two layers of amni on (monochorionic-diamniotic twin placenta). Sections of placental disc of twin B show chorionic plate wi th patent blood vessels. ??The terminal chorionic villi are matu re and well vascularized. ??There is no evidence of chronic villitis or villous edema. ??The basal lamina is without abnormalities. The membranes are without acute inflammation or decidu al vasculopathy. The umbilical cord shows three blood vessels. ??One umbilica l artery shows focal margination and infiltration by neutrophils and eosinophils. The findings are suggestive of early acute funisitis. (Dict ated by: Jose Hwang MD 03/26/2015 11:59 AM) CPT Codes: A: 79157-HK6(2) TESTING LAB LOCATION: [address] ??[id number] COLLECTION SITE: Client: [facility] Location: RH (R) Specimen Anatomical Collection Method Collection Time Receive d Time (Source) Location / / Volume Laterality Specimen from 03/24/2015 6:29 PM 03/25/20 15 7:59 placenta CDT AM CDT (specimen) Seymour Ko MD LAB - BEAKER AP Performing Organization Address City/[facility]/ZIP Code Phon e Number COPATH ABO/Rh type and screen (03/24/2015 11:56 AM CDT) [facility] Method Time Signature ABO A [facility] RH(D) Pos [facility] Antibody Neg [place] Screen [facility] Test Valid [facility] Only At [facility] Specimen 03/27/2015 [place] Expires [facility] Specimen Anatomical Collection Method Collection Time Receive d Time (Source) Location / / Volume Laterality 03/24/2015 11:56 03/24/2015 1:24 AM CDT PM CDT Seymour Ko MD LAB - BLOOD BANK TEST ORDER Performing Organization Address City/[facility] Phon e Number [place] [address] [address] [place] [address] [facility] [address] [place] [phone] (ABNORMAL) CBC with platelets differential (03/24/2015 11:56 AM CDT) [facility] Method Time Signature WBC 9.5 4.0 - [place] 11.0 [facility] 10e9/[facility] RBC Count 3.97 3.8 - 5.2 [place] 10e12/L [facility] Hemoglobin 13.2 11.7 - [place] 15.7 g/dL [facility] Hematocrit 38.8 35.0 - [place] 47.0 % [facility] MCV 98 78 - 100 [facility] MCH 33.2 (H) 26.5 - [place] 33.0 pg [facility] MCHC 34.0 31.5 - [place] 36.5 g/dL [facility] RDW 13.1 10.0 - [place] 15.0 % [facility] Platelet Count 176 150 - 450 [place] [id number]/L [facility] Diff Method Automated [facility] % Neutrophils 69.9 % [facility] % Lymphocytes 18.8 % [facility] % Monocytes 9.4 % [facility] % Eosinophils 1.1 % [facility] % Basophils 0.2 % [facility] % Immature 0.6 % [place] Granulocytes [facility] Absolute 6.6 1.6 - 8.3 [place] Neutrophil 10e9/L [facility] Absolute 1.8 0.8 - 5.3 [place] Lymphocytes 10e9/L [facility] Absolute 0.9 0.0 - 1.3 [place] Monocytes 10e9/L [facility] Absolute 0.1 0.0 - 0.7 [place] Eosinophils 10e9/[facility] Absolute 0.0 0.0 - 0.2 [place] Basophils 10e9/[facility] Abs Immature 0.1 0 - 0.4 [place] Granulocytes [address] [place] [address] Specimen Anatomical Collection Method Collection Time Receive d Time (Source) Location / / Volume Laterality Blood specimen 03/24/2015 11:56 5 (specimen) AM CDT 12:06 PM CDT Seymour Ko MD LAB - BLOOD ORDERABLES Performing Organization Address City/[facility]/ZIP Code Phon e Number [place] [address] [place], [place] [address] [place] [address] [address] [place] [address], [facility] [phone] (ABNORMAL) Rupture of membranes by Amnisure (03/24/2015 11:23 AM CDT) P athologist Signature [facility] Positive (A) NEG [facility] Specimen (Source) Anatomical Collection Method Collection Time Re ceived Time Location / / Volume Laterality Cervicovaginal 03/24/2015 11:23 5 Secretions AM CDT 11:33 AM CDT Seymour Ko MD LAB - BODY FLUIDS ORDERABLES Performing Organization Address City/[facility]/ZIP [facility] [place] [facility] [address] [place], [place] [address] [place] [address] [address] [place], [place] [address], [facility] [phone] NON-STRESS TEST - HIM SCAN (03/24/2015 12:00 AM CDT) Specimen (Source) Anatomical Location Collection Method / Collectio n Time Received Time / Laterality Volume 03/24/2015 Narrative This result has an attachment that is no t available. Provider Scan PROCEDURES documented in this encounter Visit Diagnoses Not on filedocumented in this encounter Active and Recently Administered Medications Times are shown in CDT. Scheduled Medication Order 03/26/2015 03/27/2015 03/28/2015 amoxicillin-clavulanate (AUGMENTIN) 500-125 MG per tab let 1 tablet 0359 (Given - Provider: Merry Rodríguez)1220 (Given - Provider: Anne Mota RN)2004 (Given - Provider: Naya Maharaj, ERROL) 0308 (Given - Provider: Merry Rodríguez)1 238 (Given - Provider: Brii Sheriff RN)2018 (Given - Provider: Chasity Peres LPN) 0408 (Given - Provider: Nakia abdul RN)1226 (Given - Provider: Brii Sheriff RN) 1 tablet, Oral, EVERY 8 HOURS SCHEDULED, First dose on Wed03/25/15 at 1630, Take 3 times a day for 7 days., Indications: Skin and Soft Tissue Infection citalopram (celeXA) tablet 20 mg (CANCELED) 2004 (Give n - Provider: Naya Maharaj RN) 2248 (Given - Provider: Bonnie Zepeda RN) 0950 (N ot Given - Provider: Brii Sheriff RN - Reason: Patient/family refused - Comment: takes at bedtime) 20 mg, Oral, DAILY, First dose on Wed03/26/15 at 1530 labetalol (NORMODYNE) tablet 200 mg (CANCELED) 1219 (G iven - Provider: Anne Mota RN)2004 (Given - Provider: Naya Maharaj RN) 0845 (Given - Provider: Brii Sheriff RN) 200 mg, Oral, 2 TIMES DAILY, First dose on Wed03/26/15 at 1200, For Adults, Hold if HR < 60. labetalol (NORMODYNE) tablet 200 mg 1750 (Given - Provider: Bonnie Katelyn, RN - Comment: pt sleeping)0453 (Given - Provider: Nakia De León RN) 0947 (Given - Provider: Brii Sheriff, ERROL)1656 (Given - Provider: Bonnie Zepeda RN) 200 mg, Oral, 3 TIMES DAILY, First dose on Wed03/27/15 at 1600, For Adults, Hold if HR < 60. magnesium sulfate 4 g in water intermittent infusion ( COMPLETED) 1424 (New Bag - Provider: Maricarmen Oro RN) 4 g, Intravenous, ONCE, Wed03/26/15 at 1 200, For 1 dose, FOR SEIZURE PROPHYLAXIS or NEUROPROTECTION. Infuse over 30 minutes per infusion control pump. Stay with patient during loading dose. Follow vital sign orders. senna-docusate (SENOKOT-S;PERICOLACE) 8.6-50 MG per ta blet 1-2 tablet 0900 (Not Given - Provider: Anne Mota RN - Reason: Patient/family refused)2010 (Not Given - Provider: Naya Maharaj RN - Reason: Patient/family refused) 0845 (Given - Provider: Brii Sheriff RN)2018 (Given - Provider: Chasity Peres LPN) 0946 (Not Given - Provider: Brii rader RN - Reason: Patient/family refused) 1-2 tablet, Oral, 2 TIMES DAILY, First d ose on Wed03/24/15 at 2100, Start with 1 tablet PO BID, If no bowel movement in 24 hours, increase to 2 tablets po BID. Hold for loose stools. Continuous Medication Order 03/26/2015 03/27/2015 03/28/2015 lactated ringers infusion (CANCELED) 1422 (New Bag - P rovider: Maricarmen Oro RN) 0234 (New Bag - Provider: Merry Rodríguez )0845 (New Bag - Provider: Brii Sheriff RN) at 75 mL/hr, Intravenous, CONTINUOUS, Re gulate rate with Magnesium Sulfate to obtain total IV intake of 125 mL/hr, Starting Wed03/26/15 at 1200, Until Wed03/27/15 at 1443 magnesium sulfate 20 g in 500 mL infusion (CANCELED) 1 453 (New Bag - Provider: Coco Lezama, RN - Comment: double checked with Joanie Mitchell RN) 0052 (New Bag - Provider: Merry Rodríguez)0845 (New Bag - Provider: Brii Sheriff, ERROL)1115 (New Bag - Provider: Brii Sheriff, ERROL) 2 g/hr (50 mL/hr), Intravenous, at 50 mL /hr, CONTINUOUS, Starting 03/26/15 at 1215, Not for use beyond 5 days in pre-term labor. PRN Medication Order 03/26/2015 03/27/2015 03/28/2015 ibuprofen (ADVIL,MOTRIN) tablet 400-800 mg 0040 (Given - Provider: Merry Rodríguez)1355 (Given - Provider: Anne Mota, ERROL)2005 (Given - Provider: Naya Maharaj RN) 0308 (Given - Provider: Merry Rodríguez)1 735 (Given - Provider: Chasity Peres, [place]) 400-800 mg, Oral, EVERY 6 HOURS PRN, oth er, cramping, Starting 03/24/15 at 1911, Max dose 3200 mg/day. oxyCODONE (ROXICODONE) immediate release tablet 5-10 mg 5-10 mg, Oral, EVERY 3 HOURS PRN, modera te to severe pain, Starting 03/24/15 at 1911 documented in this encounter Care Teams Military Logistics Specialist Relationship Specialty Start Date End Date [facility], [facility] PCP - General 12/26/14 07/03/16 [place] [address] documented as of this encounter
--- OUTSIDE RECORDS SUMMARY | 2022-09-05 18:59 | XMS_ITS | Encounter Summary ---
:1995 Author Organization [place] Address [facility] [place] [address] Care Team Providers Name Role Phone [facility] Primary Care Provider [phone] Reason for Visit Reason Comments Jessenia Toenail Encounter Details Date Type Department Care Team Description 06/18/2015 Office Visit [facility] Charline Coleman MD without infection [place] [address], [address] [place] [address] [place], [place] [phone] (Wo rk) [address] [phone] Social History Tobacco Use Types Packs/Day Years [...] Sign Reading Time Taken Comments Blood Pressure 94/60 06/18/2015 8:30 AM CDT Pulse 67 06/18/2015 8:30 AM CDT Temperature 36.7 ??C (98 ??F) 06/18/2015 8:30 AM CDT Respiratory Rate - - Oxygen Saturation 98% 06/18/2015 8:30 AM CDT Inhaled Oxygen Concentration - - Weight 59.9 kg (132 lb) 06/18/2015 8:30 AM CDT Height - - Body Mass Index 23.39 03/18/2015 8:59 PM CDT documented in this encounter Progress Notes David Breen MD - 06/18/2015 8:25 AM CDT HPI SUBJECTIVE: Joel Amos is a 20 year old female who presents to clinic today for the following health issues: Ingrown Toenail: ?? Duration: 1 month ?? Description (location/character/radiation): right foot, big toe ?? Intensity: mild ?? Accompanying signs and symptoms: there was swelling ?? History (similar episodes/previous evaluation): None ?? Precipitating or alleviating factors: None ?? Therapies tried and outcome: tried fixing it herself. Has been having toe pain - R great toe. Thinks it may be ingrown. NO bleeding or pus, some redness and swelling. Hurts to put too much pressure. Has tried to cut out edge, not sure how well she's done.Not too bothersome right now, but wants to make sure it doesn't become a bigger problem. 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 Review of Systems Constitutional: Negative. Negative for fever. Respiratory: Negative. Cardiovascular: Negative. Musculoskeletal: Positive for joint pain. Physical Exam Constitutional: She is well-developed, well-nourished, and in no distress. Musculoskeletal: Mildly ingrown R great toe,both sides Vitals reviewed. (703.0) Ingrown toenail without infection (primary encounter diagnosis) Comment: both nails cleaned and trimmed, nail care discussed Plan: RTC PRN for remval if needed RTC in David Breen MD documented in this encounter Nursing Notes Mile Lomeli - 06/18/2015 8:32 AM CDT Chief Complaint Patient presents with ??? Ingrown Toenail Initial BP 94/60 mmHg Pulse 67 Temp(Src) 98 ??F (36.7 ??C) (Oral) Wt 132 lb (59.875 kg) [id number]% LMP (LMP Unknown) Estimated body mass index is 23.39 kg/(m^2) as calculated from the following: Height as of 03/18/15: 5' 2.99 (1.6 m). Weight as of this encounter: 132 lb (59.875 kg). BP completed using cuff size: kemi Lomeli MA documented in this encounter Plan of Treatment Not on filedocumented as of this encounter Visit Diagnoses Diagnosis Ingrown toenail without infection - Prim jeff Ingrowing nail documented in this encounter Care Teams Animal Researcher Relationship Specialty Start Date End Date [facility], [facility] PCP - General 12/26/14 07/03/16 [place] [address] documented as of this encounter
--- OUTSIDE RECORDS SUMMARY | 2022-09-05 18:59 | XMS_ITS | Encounter Summary ---
:1995 Author Organization [place] Address [address] [place] [address]. [place] [address] Care Team Providers Name Role Phone Daniel [facility] Primary Care Provider [phone] Reason for Referral Mental Health Outpatient - Closed Specialty Diagnoses / Procedures Referred By Contact Refer red To Contact Diagnoses Moderate episode of recurrent major depressive disorder (H) Kalin Suh MD [facility] [address] [facility] [place], [place] [address] [place] [address] Phone: Referral ID Status Reason Start Date Expiration Date Visits Requ ested Visits Authorized [id number] Closed 06/01/2016 06/01/2017 1 1 Reason for Visit Reason Comments Recheck Medication Encounter Details Date Type Department Care Team Description 06/01/[address] [facility] Kalin Suh MD Moderate episode of Clinic [place] [address] recurrent major [address] [place], [place] [address] (H) (Primary Dx) [id number] Social History Tobacco Use Types Packs/Day [...] Sign Reading Time Taken Comments Blood Pressure 134/74 06/01/2016 4:14 PM CDT Pulse 66 06/01/2016 4:14 PM CDT Temperature 37.1 ??C (98.7 ??F) 06/01/2016 4:14 PM CDT Respiratory Rate 16 06/01/2016 4:14 PM CDT Oxygen Saturation 98% 06/01/2016 4:14 PM CDT Inhaled Oxygen Concentration - - Weight 57.6 kg (127 lb) 06/01/2016 4:14 PM CDT Height 160 cm (5' 3) 06/01/2016 4:14 PM CDT Body Mass Index 22.5 06/01/2016 4:14 PM CDT documented in this encounter Progress Notes Kalin Suh MD - 06/01/2016 4:04 PM CDT SUBJECTIVE: Joel Amos is a 21 year old female who presents to clinic today for the following health issues: Depression and Anxiety Follow-Up ?? Status since last visit: worse, she is feeling very anxious, she is worried about everything, hard to sleep, feeling guilty that she is not taking care of her children. ?? Other associated symptoms:bad mood swings ?? Complicating factors: ?? Significant life event: Yes- Breakup with boyfriend and has recently moved ?? Current substance abuse: None No flowsheet data found. No flowsheet data found. PHQ-9 [place] PHQ-9 Any Language GAD7 ?? Amount of exercise or physical activity: None ?? Problems taking medications regularly: Yes, problems remembering to take ?? Medication side effects: none ?? Diet: regular (no restrictions) Problem list and histories reviewed & adjusted, as indicated. Additional history: as documented Patient Active Problem List Diagnosis ??? Migraine ??? Anxiety ??? Health Skilled Nursing ??? Pain in joint, pelvic region and thigh ??? Encounter for triage in patient ??? Indication for care or intervention related to labor and delivery No past surgical history on file. Social History Substance Use Topics ??? Smoking status: Never Smoker ??? Smokeless tobacco: Never Used ??? Alcohol Use: 0.0 oz/week 0 Standard drinks or equivalent per week Comment: once per week Family History Problem Relation Age of Onset ??? Hypertension Mother ??? DIABETES Maternal Grandmother ??? Hypertension Maternal Grandmother ??? Hypertension Maternal Grandfather ??? DIABETES Maternal Grandfather ??? CANCER Paternal Uncle Current Outpatient Prescriptions Medication Sig Dispense Refill ??? sertraline (ZOLOFT) 100 MG tablet Take by mouth daily No Known Allergies ROS: C: NEGATIVE for fever, chills, change in weight R: NEGATIVE for significant cough or SOB CV: NEGATIVE for chest pain, palpitations or peripheral edema OBJECTIVE: BP 134/74 mmHg Pulse 66 Temp(Src) 98.7 ??F (37.1 ??C) (Oral) Resp 16 Ht 5' 3 (1.6 m) Wt 127 lb (57.607 kg) BMI 22.50 kg/m2 SpO2 98% Body mass index is 22.5 kg/(m^2). GENERAL: healthy, alert and no distress [...] musculoskeletal defects noted, no edema ASSESSMENT/PLAN: 1. Moderate episode of recurrent major depressive disorder (H) With mood fluctuation, start on - risperiDONE (RISPERDAL) 0.5 MG tablet; Take 1 tablet (0.5 mg) by mouth At Bedtime Dispense: 30 tablet; Refill: 1 - PARoxetine (PAXIL) 20 MG tablet; Take 1 tablet (20 mg) by mouth At Bedtime Dispense: 30 tablet; Refill: 3 - MENTAL HEALTH REFERRAL Pt is not breast feeding anymore. Follow up in 1 week. Kalin Suh MD [facility] documented in this encounter Nursing Notes Gabi Whitfield CMA - 06/01/2016 4:15 PM CDT Chief Complaint Patient presents with ??? Recheck Medication Initial BP 134/74 mmHg Pulse 66 Temp(Src) 98.7 ??F (37.1 ??C) (Oral) Resp 16 Ht 5' 3 (1.6 m) Wt 127 lb (57.607 kg) BMI 22.50 kg/m2 SpO2 98% Estimated body mass index is 22.5 kg/(m^2) as calculated from the following: Height as of this encounter: 5' 3 (1.6 m). Weight as of this encounter: 127 lb (57.607 kg).. BP completed using cuff size regular Gabi Whitfield CMA documented in this encounter Plan of Treatment Scheduled Referrals Name Type Priority Associated Diagnoses Order S [facility] REFERRAL Referral Routine Moderate episode o f Ordered: 06/01/2016 recurrent major depressive disorder (H) documented as of this encounter Visit Diagnoses Diagnosis Moderate episode of recurrent major depr essive disorder (H) - Primary documented in this encounter Additional Health Concerns Assessment Noted Time PHQ-9 Depression Total Score: 18 06/03/2016 7:15 AM CD T documented as of this encounter Care Teams Bar And Filler Assembler Relationship Specialty Start Date End Date [facility], [facility] PCP - General 12/26/14 07/03/16 [id number] [place] [address] documented as of this encounter
--- OUTSIDE RECORDS SUMMARY | 2022-09-05 18:59 | XMS_ITS | Encounter Summary ---
:1995 Author Organization [place] Address [address] [place] [address] Care Team Providers Name Role Phone [facility], [facility] Primary Care Provider [phone] Encounter Details Date Type Department Care Team Description 03/24/2015 Anesthesia Event [facility] Yassine Chakraborty MD [facility] [address] [facility] [place] [address] [facility] [id number] [address] [place], [place] [address] (Wo rk) Anesthesia Record Procedure Summary Procedure Name Responsible Anesthesia Start Time Anesthesia Stop Time Anesthesiologist LABOR ANALGESIA Yassine Chakraborty MD 03/24/15 1349 03/24/15 1406 Events Date Time Event Comment 03/24/2015 1349 An Start 1406 An Stop Electronically s igned by YASSINE CHAKRABORTY on March 24, 2015 2:07 PM No medications on file. Agents No agents on file. Blood No blood administrations on file. Lines, Drains, and Airways Type Details Placement Removal Peripheral IV 03/24/15; 1215; 20 G; 03/24/15 1215 by 03/25/15 1637 by Right; Hand; Cosme Mota Stephanie , Chlorhexidine; None; ERROL Teresa RN Tolerated well Intrathecal/Epidural 03/24/15; 1406; 03/24/15 1406 by 03/24/15 1 850 by Catheter Epidural; Yassine Mckeon MD Huble, Julie Ann, Morris, RN; Tip intact RN documented in this encounter Social History Tobacco Use Types Packs/Day Years [...] on file documented as of this encounter OR Notes Anesthesia Postprocedure Evaluation - Fareed Yi DO - 03/25/2015 8:55 AM CDT Patient: Joel Amos LABOR EPIDURAL Additional Information* No procedures listed * Diagnosis:* No pre-op diagnosis entered * Diagnosis Additional Information: labor Anesthesia Type: Epidural Note: Anesthesia Post Evaluation Patient location during evaluation: PACU Patient participation: Able to fully participate in evaluation Level of consciousness: awake Pain management: adequate Airway patency: patent Anesthetic complications: no Cardiovascular status: acceptable Respiratory status: acceptable Hydration status: acceptable Comments: .Labor Epidural Post delivery note. Doing well. VSS Temp normal. Satisfactory respiratory and cardiovascular function. Return of neurologic function. Questions encouraged and answered. Denies positional headache. Minimal side effects easily managed w/ PRN meds. No apparent anesthetic complications. No follow-up required. I or my partner was immediately available for epidural management. R Kd PONV: controlled Last vitals: Filed Vitals: 03/24/15 2353 03/25/15 0439 03/25/15 0800 BP: 139/82 146/94 128/85 Pulse: 89 93 77 Temp: 98.7 ??F (37.1 ??C) 98.9 ??F (37.2 ??C) 98 ??F (36.7 ??C) Resp: Electronically Signed By: FAREED YI DO March 25, 2015 8:55 AM Anesthesia Procedure Notes - Yassine Chakraborty MD - 03/24/2015 2:07 PM CDT Associated Order(s): ANE EPIDURAL BLOCK Peripheral nerve/Neuraxial procedure note Assessment/Narrative . . . . . . . . . . Comments: Pre-Procedure Performed by Yassine Chakraborty MD Location: OB. PreAnesthestic Checklist: patient identified, IV checked, risks and benefits discussed, informed consent obtained, monitors and equipment checked, pre-op evaluation and at physician/surgeon's request. Timeout Correct Patient: Yes Correct Procedure: Epidural catheter placement Correct Site: Yes Correct Position: Yes Procedure Documentation Procedure: Epidural catheter block for Labor Patient currently in labor and she and OBMD request a labor epidural to control her labor pains. Patient was interviewed and examined. Procedure and risks including but not limited to bleeding, infection, nerve injury, paralysis, PDPH, and inadequate block requiring intervention discussed with patient. Questions answered. This epidural is to be placed in anticipation of vaginal delivery. She consentsto the epidural procedure. Time-out was performed. I or my partners remain immediately available formanagement of any issues or complications and will monitor at appropriate intervals. Procedure: Patient sitting. Betadine prep x 3. Sterile drape applied. Lidocaine 1% local infiltration at L 3-4. 17 G. Tuohy needle at L3-4 by loss of resistance into epidural space. No CSF, paresthesia or blood. 1.5 % Lidocaine with 1:200,000 Epinephrine 5cc test dose. Then 0.25% bupivicaine 10 cc with NS 5 cc. Epidural catheter inserted w/o resistance to 5 cm in epidural space. Aspiration negative for blood and CSF. Negative for neuro change, paresthesia or symptoms of intravascular injection or intrathecal injection. Infusion orders written and infusion of 0.125% bupivicaine 15cc per hour started. Yassine Chakraborty MD documented in this encounter Miscellaneous Notes Addendum Note - Fareed Yi DO - 03/25/2015 8:56 AM CDT Addendum created 03/25/15 0856 by Fareed Yi DO Modules edited: Clinical Notes Clinical Notes: File: [id number] documented in this encounter Plan of Treatment Not on filedocumented as of this encounter Procedures Procedure Name Priority Date/Time Associated Diagnosis Comme nts ANE EPIDURAL BLOCK Routine 03/24/2015 2:08 PM Res ults for this CDT procedure are i n the results section. documented in this encounter Results Epidural Block (03/24/2015 2:08 PM CDT) Narrative Yassine Chakraborty MD - 03/24/2015 2:08 PM CDT Yassine Chakraborty MD ? 03/24/2015 ??2:08 PM Peripheral nerve/Neuraxial procedure not e ?? Assessment/Narrative . ??. ??. ??. ??. ??. ??. ??. ??. ?? . ? ? Comments: ??Pre-Procedure Performed by Yassine Chakraborty MD Location: OB. ?? PreAnesthestic Checklist: patient identi fied, IV checked, risks and benefits discussed, informed consent obtained, monitors and equipment checked, pre-op evaluation and at physician/surgeon's request. Timeout Correct Patient: Yes Correct Procedure: Epidural catheter lynn cement Correct Site: Yes Correct Position: Yes Procedure Documentation Procedure: ?? Epidural catheter block fo r Labor Patient currently in labor and she and O BMD request a labor epidural to control her labor pains. Chhaya ient was interviewed and examined. Procedure and risks including but not limited to bleeding, infection, nerve injury, paral ysis, PDPH, and inadequate block requiring intervention discussed with patient. Questions answered. This epidural is to be placed in anticipation of vaginal delivery. ??She consents to t he epidural procedure. ?? Time-out was performed. ??I or my partne rs remain immediately available for management of any issues o r complications and will monitor at appropriate intervals. Procedure: Patient sitting. Betadine pre p x 3. Sterile drape applied. Lidocaine 1% ??local infiltration at L 3 -4. ??17 G. Tuohy needle at L3-4 by loss of resistance into epidural space. ??No CSF, paresthesia or blood. 1.5 % Lidocaine wi th 1:200,000 Epinephrine 5cc test dose. Then 0.25% bupivicaine 10 cc with NS 5 cc. ?? Epidural catheter inserted w/o resistanc e to 5 cm in epidural space. ??Aspiration negative for blood a nd CSF. ?? Negative for neuro change, paresthesia or symptoms of intravascular injection or intrathecal injection. Infusion orders written and infusion of 0.125% bupivicaine 15cc per hour started. Yassine Chakraborty MD Yassine Chakraborty MD [facility] documented in this encounter Visit Diagnoses Not on filedocumented in this encounter Care Teams Typist Relationship Specialty Start Date End Date [facility], [facility] PCP - General 12/26/14 07/03/16 [place] [address] documented as of this encounter
--- OUTSIDE RECORDS SUMMARY | 2022-09-05 18:59 | XMS_ITS | Encounter Summary ---
:1995 Author Organization [employer] Address [address] [facility] [place] [address] Care Team Providers Name Role Phone [facility], [facility] Primary Care Provider [phone] Reason for Visit Reason Comments Non Stress Test twins Encounter Details Date Type Department Care Team Description 03/06/2015 Hospital Encounter [facility] Maria Victoria Robles MD Birthplace [address] [place] [id number] [phone] Social History Tobacco Use Types Packs/Day Years [...] Sign Reading Time Taken Comments Blood Pressure 131/64 03/06/2015 4:29 PM CDT Pulse - - Temperature 36.6 ??C (97.9 ??F) 03/06/2015 4:29 PM CDT Respiratory Rate - - Oxygen Saturation - - Inhaled Oxygen Concentration - - Weight 71.2 kg (157 lb) 03/06/2015 4:32 PM CDT Height 160 cm (5' 3) 03/06/2015 4:32 PM CDT Body Mass Index 27.81 03/06/2015 4:32 PM CDT Body Mass Index Percentile 90.43 % 03/06/2015 4:32 PM CD T Growth Chart: [facility] (Girls, 2-20 Years) documented in this encounter Discharge Instructions Discharge InstructionsShani Omalley RN - 03/06/2015 4:59 PM CDT Discharge Instruction for Undelivered Patients You were seen for: Assessment We Consulted: Dr Monreal You had (Test or Medicine): NST's for your twins Diet: Resume normal diet Activity: Call your doctor or nurse computer applications engineer if your baby is moving less than usual. Call your provider if you notice: Swelling in your face or increased swelling in your hands or legs. Headaches that are not relieved by Tylenol (acetaminophen). Changes in your vision (blurring: seeing spots or stars.) Nausea (sick to your stomach) and vomiting (throwing up). Weight gain of 5 pounds or more per week. Heartburn that doesn't go away. Signs of bladder infection: pain when you urinate (use the toilet), need to go more often and more urgently. The bag of reynaga (rupture of membranes) breaks, or you notice leaking in your underwear. Bright red blood in your underwear. Abdominal (lower belly) or stomach pain. Contractions (tightening) less than 10 minutes apart and getting stronger. Increase or change in vaginal discharge (note the color and amount) Follow-up: As scheduled in the clinic documented in this encounter Medications at Time of Discharge Medication Sig Dispensed Refills Start Date End Date amoxicillin (AMOXIL) 500 Take 1 capsule (500 30 capsule 0 03/24/2015 MG capsuleIndications: mg) by mouth 3 times Acute sinusitis with daily symptoms > 10 days CITALOPRAM HYDROBROMIDE Take 20 mg by mouth 0 03/24/2015 POIndications: daily Depression, Prescribed by doctor at her college fluticasone (FLONASE) [address] [place] 1-2 sprays 1 Package 1 11/1603/24/2015 MCG/ACT nasal into both nostrils sprayIndications: URI daily (upper respiratory infection) NIFEdipine (PROCARDIA) Take 1 capsule (20 1 capsule 0 02/2003/24/2015 20 MG mg) by mouth every 6 capsuleIndications: hours labor in third trimester with delivery, fetus 2 Vit-Fe Take 1 tablet by 0 12/07/2014 Fumarate-FA ( mouth Take 1 tablet MULTIVITAMIN PLUS IRON) by mouth 27-0.8 MG TABS per tablet Vit-Fe Take 1 tablet by 100 tablet 3 08/03/2014 Fumarate-FA ( mouth daily VITAMINS PLUS) 27-1 MG TABSIndications: Supervision of normal first , first trimester SUMAtriptan (IMITREX) Take 1 tablet (100 9 tablet 0 201303/24/2015 100 MG mg) by mouth at tabletIndications: onset of headache Migraine without aura, for migraine May without mention of repeat in 2 hours if intractable migraine needed: max 2/day; without mention of average number of status migrainosus headaches monthly 4 documented as of this encounter Miscellaneous Notes Plan of Care - Shani Omalley RN - 03/06/2015 5:00 PM CDT Data: Patient presented to the Birth[facility] at 1625. Reason for maternal/ assessment per patient is Non Stress Test . Patient is a . record reviewed. Obstetric History T0 TAB0 SAB0 E0 M0 L0 # Outcome Date GA Lbr Stuart/2nd Weight Sex Delivery Anes PTL Lv 1 Current Medical History: Past Medical History Diagnosis Date ??? Migraines ??? Depression ??? Anxiety . Gestational Age 34w4d. VSS. Cervix: not examined. movement present. Patient denies cramping,backache, vaginal discharge, pelvic pressure, UTI symptoms, GI problems, bloody show, vaginal bleeding, edema, headache, visual disturbances, epigastric or URQ pain, abdominal pain, rupture of membranes. Support persons present. Action: Verbal consent for EFM. Triage assessment completed. EFM applied for surviellence. Uterine assessment showed irritability and occasional cramping that patient was not feeling. assessment: Presumed adequate oxygenation documented (see flow record). Patient educated on discharge instructions and when to call the doctor. Patient instructed to report change in movement, vaginal leaking of fluid or bleeding, abdominal pain, or any concerns related to the to her nurse/physician. Response: Dr. Monreal informed of: see note. Plan per provider is discharge to home with follow up at next scheduled appointment. Patient verbalized understanding of education and verbalized agreement with plan. Discharged ambulatory at 1700. Face to Face time: Nursing Face to Face Time: 20 Minutes Provider Notification - Shani Omalley RN - 03/06/2015 4:55 PM CDT 03/06/15 1655 Provider Notification Provider Name/Title Dr Monreal Method of Notification Phone Request Evaluate - Remote Notification Reason Patient Arrived;Status Update Dr Monreal updated re: arrival, reactive NST's for each baby, irritability that patient is not feeling, and pertinent patient info. MD states patient may be discharged to home. Plan of Care - Shani Omalley RN - 03/06/2015 4:25 PM CDT Pt presents to [facility] for an NST. Pt received a BPP earlier today and twin B received a result of 03/18. Pt denies LOF or bleeding. States her babies are active and is not feeling any regular contractions. External monitors applied. documented in this encounter Plan of Treatment Not on filedocumented as of this encounter Procedures Procedure Name Priority Date/Time Associated Diagnosis Comme nts NON-STRESS TEST - 03/06/2015 12:00 AM CDT HIM SCAN documented in this encounter Results NON-STRESS TEST - HIM SCAN (03/06/2015 12:00 AM CDT) Specimen (Source) Anatomical Location Collection Method / Collectio n Time Received Time / Laterality Volume 03/06/2015 Narrative This result has an attachment that is no t available. Provider Scan PROCEDURES documented in this encounter Visit Diagnoses Diagnosis Encounter for triage in patient documented in this encounter Care Teams Partridge Farmer Relationship Specialty Start Date End Date Clinic, [facility] PCP - General 12/26/14 07/03/16 [place] [address] documented as of this encounter
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
--- OUTSIDE RECORDS SUMMARY | 2022-09-05 18:59 | XMS_ITS | Encounter Summary ---
:1995 Author Organization [place] Address [address] [place] [address] Care Team Providers Name Role Phone Daniel [facility] Primary Care Provider [phone] Encounter Details Date Type Department Care Team Description 03/08/2015 Medical Correspondence [facility], [facility], [facility] Provider Plan of Care [facility] [address] [place] [address] Social History Tobacco Use Types Packs/Day Years [...] on filedocumented in this encounter Care Teams Brim Stiffener Relationship Specialty Start Date End Date [facility] PCP - General 12/26/14 07/03/16 [employer] [place], [place] [id number] documented as of this encounter
--- OUTSIDE RECORDS SUMMARY | 2022-09-05 18:59 | XMS_ITS | Encounter Summary ---
:1995 Author Organization [place] Address [address] [place] [address]. [place] [address] Care Team Providers Name Role Phone Daniel [facility] Primary Care Provider [phone] Reason for Visit Reason Onset Date Comments Panel Management 06/10/2016 Encounter Details Date Type Department Care Team Description 06/10/[address] [facility] Bianca Suh MD Panel Management [address] [phone] Social History Tobacco Use Types Packs/Day Years [...] Telephone Encounter - Gabi Whitfield CMA - 06/10/2016 10:03 AM CDT Panel Management Review Patient has the following on her problem list: Depression / Dysthymia review PHQ-9 SCORE 06/02/2016 Total Score 18 Patient is due for: None Composite cancer screening Chart review shows that this patient is due/due soon for the following None Summary: Patient is due/failing the following: STD testing Action needed: Patient needs office visit for STD testing. Type of outreach: Sent letter. Questions for provider review: None Gabi Whitfield CMA Chart routed to Care Team . documented in this encounter Plan of Treatment Not on filedocumented as of this encounter Visit Diagnoses Not on filedocumented in this encounter Additional Health Concerns Assessment Noted Time PHQ-9 Depression Total Score: 18 06/03/2016 7:15 AM CD T documented as of this encounter Care Teams Tuber Machine Operator Relationship Specialty Start Date End Date Clinic, [facility] PCP - General 12/26/14 07/03/16 [address] [place] [address] documented as of this encounter
--- OUTSIDE RECORDS SUMMARY | 2022-09-05 18:59 | XMS_ITS | Encounter Summary ---
:1995 Author Organization [place] Address [address] [place] [address] Care Team Providers Name Role Phone [facility], [facility] Primary Care Provider [phone] Encounter Details Date Type Department Care Team Description 03/26/[address] [facility] Ailyn Recio, [facility] TEAROOM HOST/HOSTESS BUILDING INSULATION INSTALLER [address] [facility] [place], [place] [address] [address] [place] [address] [phone] (Wo rk) Anesthesia Record Procedure Summary Procedure Name Responsible Anesthesiologist Anesthesia Start Ti me Anesthesia Stop Time IV START 03/26/15 1408 03/26/15 1420 Events Date Time Event Comment 03/26/2015 1408 An Start 1416 Quick Note Anesthesia collins d for IV start for magnesium administration. Dx: preeclampsia, Dr. Yolande Venegas. 22g PIV started in r ight hand. RN present, IV fluid infusing without difficul ty. 1420 An Stop Electronically s igned by Ailyn Recio on March 26, 2015 2:26 PM No medications on file. Agents No agents on file. Blood No blood administrations on file. Lines, Drains, and Airways Type Details Placement Removal Peripheral IV 03/26/15; 1416; 22 G; 03/26/15 1416 by Hemal, 2028 by Right; Hand DORIAN Morin CRNA, Danielle Elizabeth, [place] documented in this encounter Social History Tobacco [...] documented as of this encounter Miscellaneous Notes Anesthesia Care Transfer Note - Ailyn Recio APRN CRNA - 03/26/2015 2:25 PM CDT Patient: Joel Amos IV START Additional [email or web address]@ Diagnosis: * No pre-op diagnosis entered * Diagnosis Additional Information: No value filed. Anesthesia Type: No value filed. Note: Airway :Room Air Destination: Post . Electronically Signed By: Ailyn Recio APRN CRNA March 26, 2015 2:25 PM documented in this encounter Plan of Treatment Not on filedocumented as of this encounter Visit Diagnoses Not on filedocumented in this encounter Care Teams Scrubbing Machine Operator Relationship Specialty Start Date End Date [facility] PCP - General 12/26/14 07/03/16 [address] [place] [address] documented as of this encounter
--- OUTSIDE RECORDS SUMMARY | 2022-09-05 18:59 | XMS_ITS | Encounter Summary ---
:1995 Author Organization [place] Address [address] [facility] 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 Diagnoses Indication for care in labor or delivery Active labor Spontaneous vaginal delivery Rh Procedures SECTION STANDBY [address] [place], [place] [address] Phone: Fax: Referral ID Status Reason Start Date Expiration Date Visits Requ ested Visits Authorized [id number] Closed 1 1 Encounter Details Date Type Department Care Team Description 03/24/2015 - Hospital Encounter [facility] Seymour Ko Sp ontaneous vaginal delivery (Primary Dx); 03/28/2015 [facility] Birthplace Anxiety; [address] [facility] [address] Hypertension [facility] [address] [place] [address] [phone] Social History Tobacco Use Types Packs/Day Years [...] 19 year old who was admitted to [facility] L/D at 37 weeks gestation with premature [...] Ko MD - 03/27/2015 7:08 AM CDT [facility] Obstetric[facility] Progress Note Subjective: This is [...] Will recheck labs in the AM. Yolande Venegas MD Farzad Pan LSW - 03/26/2015 10:23 [...] Venegas MD - 03/26/2015 8:34 AM CDT [facility] Obstetric[facility] Progress Note Subjective: This is [...] They live together at [address] [facility] with Win's parents and brother. Twins Genesis Cervantes and Sade Shelley are their first children together and they are prepared for them at home. Joel is on WIC and has a PHN Jaswinder with [facility]. SW faxed referral to Jaswinder per Joel. [...] of the cord) Small hymenal tear repaired SEW=750 cc documented in this encounter H&P Notes [...] 1:24 PM CDT Pt to stay until [phone] Petit to due to blood [...] bedside, very supportive. Both parents independent w/ cares. Expected to d/c home today. Plan [...] tomorrow. Plan of Care - Anne Mota, REROL - 03/25/2015 1:45 PM CDT Problem: Goal [...] 7. Patient set up to start pushing. [employer] paged to come for delivery. 1710: [employer] here for delivery. 1715: Delivery of [...] of body. The baby was a female infant who was vigor ous and crying upon [...] of body. The baby was a female infant who was vigorous and crying upon delivery. [...] EM#[id number] Name: JOEL ROBLERO MRN: [id number] Account: [id number] : 1995 Delivery Date: 03/24/2015 Document: [id number] Provider Notification - Brii Mota RN - [...] 12:38 PM CDT Data: Patient presented to [facility] at 1100. Reason for maternal/ assessment [...] Signature AST 29 0 - 35 U/L [facility] Specimen Anatomical Collection Method Collection Time Receive d Time (Source) Location / / Volume Laterality Blood specimen 03/28/2015 6:31 AM 015 7:07 (specimen) CDT AM CDT Seymour Ko MD LAB - BLOOD ORDERABLES Performing Organization Address City/[facility]/ZIP [facility] Phon e Number M [facility] [address], [place] [address] [phone] [place] [address] [phone] (ABNORMAL) Creatinine (03/27/2015 6:42 AM CDT) [facility] gist Method Time Signature Creatinine 0.46 (L) 0.50 - [place] 1.00 [facility] mg/dL [facility] GFR Estimate >90 >60 [place] Non GFR Calc mL/min/1. RIDGES 7m2 [facility] GFR Estimate >90 >60 [place] If Black GFR Calc mL/min/1. R[facility]G ES 7m2 HOSPITAL Specimen Anatomical Collection Method Collection Time Receive d Time (Source) Location / / Volume Laterality Blood specimen 03/27/2015 6:42 AM 015 6:59 (specimen) CDT AM CDT Yolande Venegas MD LAB - BLOOD ORDERABLES Performing Organization Address City/[facility]/ZIP Code Phon e Number M [facility] [address], [place] [address] [facility] [address] [place], [place] [address] [phone] (ABNORMAL) CBC with platelets (03/27/2015 6:42 AM CDT) Analysis Performed At Patho logist Time Signature WBC 12.6 (H) 4.0 - 11.0 [place] 10e9[facility] RBC Count 3.92 3.8 - 5.2 [place] 10e12/L [facility] Hemoglobin 13.1 11.7 - [place] 15.7 g/dL [facility] Hematocrit 38.2 35.0 - [place] 47.0 % [facility] MCV 97 78 - 100 [facility] MCH 33.4 (H) 26.5 - [place] 33.0 pg [facility] MCHC 34.3 31.5 - [place] 36.5 g/dL [facility] RDW 13.4 10.0 - [place] 15.0 % [facility] Platelet Count 209 150 - [address] Specimen Anatomical Collection Method Collection Time Receive d Time (Source) Location / / Volume Laterality Blood specimen 03/27/2015 6:42 AM 015 6:59 (specimen) CDT AM CDT oYlande Venegas MD LAB - BLOOD ORDERABLES Performing Organization Address City/State/ZIP Code Phon e Number [place] [address], [place] [address] [facility] [address] [place], [place] [address] [phone] (ABNORMAL) ALT (03/27/2015 6:42 AM CDT) P athologist Signature ALT 74 (H) 0 - 50 U/L [facility] Specimen Anatomical Collection Method Collection Time Receive d Time (Source) Location / / Volume Laterality Blood specimen 03/27/2015 6:42 AM 015 6:59 (specimen) CDT AM CDT Yolande Venegas MD LAB - BLOOD ORDERABLES Performing Organization Address City/State/ZIP Code Phon e Number M [facility] [address], [place] [address] [facility] [address] [place], [place] [address], [facility] [phone] (ABNORMAL) AST (03/27/2015 6:42 AM CDT) athologist Signature AST 60 (H) 0 - 35 U/L [facility] Specimen Anatomical Collection Method Collection Time Receive d Time (Source) Location / / Volume Laterality Blood specimen 03/27/2015 6:42 AM 015 6:59 (specimen) CDT AM CDT Yolande Venegas MD LAB - BLOOD ORDERABLES Performing Organization Address City/[facility]/ZIP Code Phon e Number [facility] [address], [place] [address] [place] [address] [address] [place], [place] [address], [facility] [phone] Creatinine (03/26/2015 6:35 AM CDT) [facility] Method Time Signature Creatinine 0.56 0.50 - [place] 1.00 [facility] mg/dL [facility] GFR Estimate >90 >60 [place] Non GFR Calc mL/min/1. RIDGE 7m2 [facility] GFR Estimate >90 >60 [place] If Black GFR Calc mL/min/1. RIDG ES 7m2 HOSPITAL Specimen Anatomical Collection Method Collection Time Receive d Time (Source) Location / / Volume Laterality 03/26/2015 6:35 AM 5 6:53 CDT AM CDT Estrella Hays PA-C LAB - BLOOD ORDERABLES Performing Organization Address City/State/ZIP Code Phon e Number [facility] [address], [place] [address] [place] [address] [address] [place], [place] [address], [facility] [phone] (ABNORMAL) AST (03/26/2015 6:35 AM CDT) athologist Signature AST 69 (H) 0 - 35 U/L [facility] Specimen Anatomical Collection Method Collection Time Receive d Time (Source) Location / / Volume Laterality 03/26/2015 6:35 AM 5 6:53 CDT AM CDT Estrella Hays PA-C LAB - BLOOD ORDERABLES Performing Organization Address City/State/ZIP Code Phon e Number M [facility] [address], [place] [address] [facility] [address] [place], [place] [address], [facility] [phone] ALT (03/26/2015 6:35 AM CDT) P athologist Signature ALT 47 0 - 50 U/L [facility] Specimen Anatomical Collection Method Collection Time Receive d Time (Source) Location / / Volume Laterality 03/26/2015 6:35 AM 5 6:53 CDT AM CDT Estrella Hays PA-C LAB - BLOOD ORDERABLES Performing Organization Address City/[facility] Phon e Number M [facility] [address], [place] [address] [place] [address] [address] [place], [place] [address], [facility] [phone] (ABNORMAL) CBC with platelets (03/26/2015 6:35 AM CDT) Analysis Performed At Patho logist Time Signature WBC 15.0 (H) 4.0 - 11.0 [place] 10e9/L [facility] RBC Count 3.88 3.8 - 5.2 [place] 10e12/L [facility] Hemoglobin 13.1 11.7 - [place] 15.7 g/dL [facility] Hematocrit 38.7 35.0 - [place] 47.0 % [facility] MCV 100 78 - 100 [facility] MCH 33.8 (H) 26.5 - [facility] 33.0 pg [facility] MCHC 33.9 31.5 - [place] 36.5 g/dL [facility] RDW 13.4 10.0 - [place] 15.0 % [facility] Platelet Count 187 150 - 450 [place] 10e9L [facility] Specimen Anatomical Collection Method Collection Time Receive d Time (Source) Location / / Volume Laterality Blood specimen 03/26/2015 6:35 AM 015 6:53 (specimen) CDT AM CDT Estrella Hays PA-C LAB - BLOOD ORDERABLES Performing Organization Address City/State/ZIP Code Phon e Number M [facility] [address], [place] [address] [facility] [address] [place], [place] [address], [facility] [phone] Hemoglobin (03/25/2015 6:50 AM CDT) P athologist Signature Hemoglobin 12.9 11.7 - 15.7 [facility] g/dL [facility] Specimen Anatomical Collection Method Collection Time Receive d Time (Source) Location / / Volume Laterality Blood specimen 03/25/2015 6:50 AM 015 7:02 (specimen) CDT AM CDT Seymour Ko MD LAB - BLOOD ORDERABLES Performing Organization Address City/State/ZIP Code Phon e Number [facility] [address], [place] [address] [place] [address] [address] [place], [place] [address], [facility] [phone] Creatinine (03/24/2015 8:52 PM CDT) [facility] Method Time Signature Creatinine 0.53 0.50 - [place] 1.00 [place] mg/dL [facility] GFR Estimate >90 >60 [place] Non GFR Calc mL/min/1. RIDGES 7m2 [facility] GFR Estimate >90 >60 [place] If Black GFR Calc mL/min/1. RIDG ES 7m2 [facility]OSPITAL Specimen Anatomical Collection Method Collection Time Receive d Time (Source) Location / / Volume Laterality Blood specimen 03/24/2015 8:52 PM 015 8:56 (specimen) CDT PM CDT Seymour Ko MD LAB - BLOOD ORDERABLES Performing Organization Address City/State/ZIP Code Phon e Number M [facility] [address], [place] [address] [facility] [address] [place], [place] [address], [facility] [phone] (ABNORMAL) Urea nitrogen (03/24/2015 8:52 PM CDT) athologist Signature Urea Nitrogen 5 (L) 7 - 19 [place] mg/dL [facility] Specimen Anatomical Collection Method Collection Time Receive d Time (Source) Location / / Volume Laterality Blood specimen 03/24/2015 8:52 PM 015 8:56 (specimen) CDT PM CDT Seymour Ko MD LAB - BLOOD ORDERABLES Performing Organization Address City/State/ZIP Code Phon e Number [facility] [address], [place] [address] [facility] [address] [place], [place] [address], [facility] [phone] (ABNORMAL) Uric acid (03/24/2015 8:52 PM CDT) athologist Signature Uric Acid 5.4 (H) 2.1 - 5.0 [place] mg/[facility] Specimen Anatomical Collection Method Collection Time Receive d Time (Source) Location / / Volume Laterality Blood specimen 03/24/2015 8:52 PM 015 8:56 (specimen) CDT PM CDT Seymour Ko MD LAB - BLOOD ORDERABLES Performing Organization Address City/State/ZIP Code Phon e Number M [facility] [address], [place] [address] [facility] [address] [place], [place] [address], [facility] [phone] ALT (03/24/2015 8:52 PM CDT) athologist Signature ALT 16 0 - 50 U/L [facility] Specimen Anatomical Collection Method Collection Time Receive d Time (Source) Location / / Volume Laterality Blood specimen 03/24/2015 8:52 PM 015 8:56 (specimen) CDT PM CDT Seymour Ko MD LAB - BLOOD ORDERABLES Performing Organization Address City/State/ZIP [facility] Phon e Number M [facility] [address], [place] [address] [place] [address] [address] [place], [place] [address], [facility] [phone] AST (03/24/2015 8:52 PM CDT) P athologist Signature AST 28 0 - 35 U/L [facility] Specimen Anatomical Collection Method Collection Time Receive d Time (Source) Location / / Volume Laterality Blood specimen 03/24/2015 8:52 PM 015 8:56 (specimen) CDT PM CDT Seymour Ko MD LAB - BLOOD ORDERABLES Performing Organization Address [facility] Phon e Number M [facility] [address], [place] [address] [place] [address] [address] [place], [place] [address], [facility] [phone] (ABNORMAL) CBC with platelets (03/24/2015 8:52 PM CDT) Analysis Performed At Patho logist Time Signature WBC 24.7 (H) 4.0 - 11.[address] RBC Count 4.04 3.8 - 5.2 [place] 10e12[facility] Hemoglobin 13.6 11.7 - [place] 15.7 g/dL [facility] Hematocrit 39.0 35.0 - [place] 47.0 % [facility] MCV 97 78 - 100 [facility] MCH 33.7 (H) 26.5 - [place] 33.0 pg [facility] MCHC 34.9 31.5 - [place] 36.5 g/dL [facility] RDW 12.9 10.0 - [place] 15.0 % [facility] Platelet Count 191 150 - 450 [place] [address] Specimen Anatomical Collection Method Collection Time Receive d Time (Source) Location / / Volume Laterality Blood specimen 03/24/2015 8:52 PM 015 8:56 (specimen) CDT PM CDT Seymour Ko MD LAB - BLOOD ORDERABLES Performing Organization Address City/State/ZIP Code Phon e Number M [facility] [address], [place] [address] [facility] [address] [place], [place] [address] [phone] Placenta path order and indications (03/24/2015 6:29 PM CDT) Component Value Ref Test Analysis Performed At [facility] gist Range Method Time Signature Copath Report Patient Name: JOEL ROBLERO MR#: [id number] Specimen #: [id number] Collected: 03/24/2015 Received: 03/25/2015 Reported: 03/27/2015 12:38 [...] placental parenchyma is red-purple and spongy throughout. ??Checker Product Design sections are submitted. Cassette 1-twin A's umbilical [...] MD 03/26/2015 11:59 AM) CPT Codes: A: 23971-JC0(2) TESTING LAB LOCATION: [address] ??[address] COLLECTION SITE: Client: [facility] Location: RH (R) Specimen Anatomical Collection Method Collection Time Receive d Time (Source) Location / / Volume Laterality Specimen from 03/24/2015 6:29 PM 03/25/20 15 7:59 placenta CDT AM CDT (specimen) Seymour Ko MD LAB - BEAKER AP Performing Organization Address City/[facility]/ZIP Code Phon e Number COPATH ABO/Rh type and screen (03/24/2015 11:56 AM CDT) [facility] Method Time Signature ABO A [facility] RH(D) Pos [facility] Antibody Neg [place] Screen [facility] Test Valid [facility] Only At [facility] Specimen 03/27/2015 [place] Expires [facility] Specimen Anatomical Collection Method Collection Time Receive d Time (Source) Location / / Volume Laterality 03/24/2015 11:56 03/24/2015 1:24 AM CDT PM CDT Seymour Ko MD LAB - BLOOD BANK TEST ORDER Performing Organization Address City/[facility] Phon e Number [place] [address] [address] [place] [address] [facility] [address] [place] [phone] (ABNORMAL) CBC with platelets differential (03/24/2015 11:56 AM CDT) [facility] Method Time Signature WBC 9.5 4.0 - [place] 11.0 [facility] 10e9/[facility] RBC Count 3.97 3.8 - 5.2 [place] 10e12/L [facility] Hemoglobin 13.2 11.7 - [place] 15.7 g/dL [facility] Hematocrit 38.8 35.0 - [place] 47.0 % [facility] MCV 98 78 - 100 [facility] MCH 33.2 (H) 26.5 - [place] 33.0 pg [facility] MCHC 34.0 31.5 - [place] 36.5 g/dL [facility] RDW 13.1 10.0 - [place] 15.0 % [facility] Platelet Count 176 150 - 450 [place] [id number] [facility] Diff Method Automated [facility] % Neutrophils 69.9 % [facility] % Lymphocytes 18.8 % [facility] % Monocytes 9.4 % [facility] % Eosinophils 1.1 % [facility] % Basophils 0.2 % [facility] % Immature 0.6 % [place] Granulocytes [facility] Absolute 6.6 1.6 - 8.3 [place] Neutrophil 10e9/L [facility] Absolute 1.8 0.8 - 5.3 [place] Lymphocytes 10e9/L [facility] Absolute 0.9 0.0 - 1.3 [place] Monocytes 10e9/L [facility] Absolute 0.1 0.0 - 0.7 [place] Eosinophils 10e9/[facility] Absolute 0.0 0.0 - 0.2 [place] Basophils 10e9/[facility] Abs Immature 0.1 0 - 0.4 [place] Granulocytes [address] [place] [address] Specimen Anatomical Collection Method Collection Time Receive d Time (Source) Location / / Volume Laterality Blood specimen 03/24/2015 11:56 5 (specimen) AM CDT 12:06 PM CDT Seymour Ko MD LAB - BLOOD ORDERABLES Performing Organization Address City/[facility]/ZIP Code Phon e Number [place] [address] [address], [place] [address] [place] [address] [address] [place] [address], [facility] [phone] (ABNORMAL) Rupture of membranes by Amnisure (03/24/2015 11:23 AM CDT) P athologist Signature Amnisure Positive (A) NEG [facility] Specimen (Source) Anatomical Collection Method Collection Time Re ceived Time Location / / Volume Laterality Cervicovaginal 03/24/2015 11:23 5 Secretions AM CDT 11:33 AM CDT Seymour Ko MD LAB - BODY FLUIDS ORDERABLES Performing Organization Address City/[facility]/ZIP [facility] Phon e Number M [facility] [address], [place] [address] [place] [address] [address] [place], [place] [address], [facility] [phone] NON-STRESS TEST - HIM SCAN (03/24/2015 12:00 AM CDT) Specimen (Source) Anatomical Location Collection Method / Collectio n Time Received Time / Laterality Volume 03/24/2015 Narrative This result has an attachment that is no t available. Provider Scan PROCEDURES documented in this encounter Visit Diagnoses Diagnosis Spontaneous vaginal delivery - Primary Normal delivery Spontaneous vaginal delivery Normal delivery Anxiety Anxiety state, unspecified Hypertension Unspecified essential hypertension Indication for care in labor or delivery Unspecified indication for care or inter vention related to labor and delivery, unspecified as to episode of care Active labor Normal delivery documented in this encounter Administered Medications Inactive Administered Medications - up to 3 most recent administrations Medication Order MAR Action Action Date Dose Rate Site amoxicillin-clavulanate Given 03/28/2015 12:26 PM CDT 1 tablet (AUGMENTIN) 500-125 MG per tablet 1 tablet Routine, 1 tablet, Oral, EVERY 8 HOURS SCHEDULED, First dose on Wed03/25/15 at 1630, Take 3 times a day for 7 days., Indications: Skin and Soft Tissue Infection Given 03/28/2015 4:08 AM CDT 1 tablet Given 03/27/2015 8:19 PM CDT 1 tablet ampicillin-sulbactam (UNASYN) 3 g vial New Bag 03/25/2015 9:38 AM CDT 3 g 200 mL/hr to attach to NS 100 mL bag Routine, 3 g, Intravenous, EVERY 6 HOURS, First dose on Wed03/24/15 at 2130, Indications: Prophylaxis New Bag 03/25/2015 3:40 AM CDT 3 g New Bag 03/24/2015 9:38 PM CDT 3 g bupivacaine 0.125 % in NaCl 0.9% Rate/Dose Verify 03/24/2015 4:15 P M CDT 15 mL/hr 250 mL EPIDURAL Drip at 15 mL/hr, EPIDURAL, CONTINUOUS, Absolutely no anticoagulants, thrombolytics or antiplatelet medications or other opioid analgesics or other sedatives without prior notification of anesthesiology. For CADD cassettes, pharmacy to send epidural tubing set Ref # [id number] (5.1mL)., Starting on Wed03/24/15 at 1300, Until Wed03/24/15 at 1911 Rate/Dose Verify 03/24/2015 3:45 PM CDT 15 mL/hr New Bag 03/24/2015 2:12 PM CDT 15 mL/hr citalopram (celeXA) tablet 20 mg Given 03/27/2015 10:48 PM CDT 20 mg 20 mg, Oral, DAILY, First dose on Wed03/26/15 at 1530 Given 03/26/2015 8:05 PM CDT 20 mg ibuprofen (ADVIL,MOTRIN) tablet 400-800 mg Given 03/27/2015 5:35 PM CDT 800 mg 400-800 mg, Oral, EVERY 6 HOURS PRN, other, cramping, Starting on Wed03/24/15 at 1911, Max dose 3200 mg/day. Given 03/27/2015 3:08 AM CDT 800 mg Given 03/26/2015 8:05 PM CDT 800 mg labetalol (NORMODYNE) tablet 200 mg Given 03/27/2015 8:45 AM CDT 200 mg 200 mg, Oral, 2 TIMES DAILY, First dose on Wed03/26/15 at 1200, For Adults, Hold if HR < 60. Given 03/26/2015 8:05 PM CDT 200 mg Given 03/26/2015 12:19 PM CDT 200 mg labetalol (NORMODYNE) tablet 200 mg Given 03/28/2015 4:56 PM CDT 200 mg 200 mg, Oral, 3 TIMES DAILY, First dose (after last modification) on Wed03/27/15 at 1600, For Adults, Hold if HR < 60. Given 03/28/2015 9:47 AM CDT 200 mg Given 03/27/2015 11:55 PM CDT 200 mg lactated ringers Rate/Dose Change 03/24/2015 12:47 PM 1,000 mLs 900 mL/hr infusion CDT at 125 mL/hr, Intravenous, CONTINUOUS, Starting on Wed03/24/15 at 1200, Until Wed03/24/15 at 1910 New Bag 03/24/2015 12:23 PM CDT 1,000 mLs 125 mL/hr lactated ringers infusion New Bag 03/24/2015 2:57 PM CDT 1,000 mLs 999 mL/hr at 100 mL/hr, Intravenous, CONTINUOUS, Maintenance IV need not run during induction unless indicated. Total IV fluids should not exceed 125 mL/ hr. without MD order, Starting on Wed03/24/15 at 1200, Until Wed03/24/15 at 1910 lactated ringers infusion New Bag 03/27/2015 8:45 AM CDT 1,000 mLs 75 mL/hr at 75 mL/hr, Intravenous, CONTINUOUS, Regulate rate with Magnesium Sulfate to obtain total IV intake of 125 mL/hr, Starting on Wed03/26/15 at 1200, Until Wed03/27/15 at 1443 New Bag 03/27/2015 2:34 AM CDT 1,000 mLs 75 mL/hr New Bag 03/26/2015 2:22 PM CDT 1,000 mLs 75 mL/hr magnesium sulfate 20 g in 500 mL New Bag 03/27/2015 11:15 AM C DT 2 g/hr 50 mL/hr infusion 2 g/hr (50 mL/hr), Intravenous, CONTINUOUS, Starting on Wed03/26/15 at 1215, Not for use beyond 5 days in pre-term labor. New Bag 03/27/2015 8:45 AM CDT 2 g/hr 50 mL/hr New Bag 03/27/2015 12:52 AM CDT 2 g/hr 50 mL/hr magnesium sulfate 4 g in water intermittent New Bag 03/26/2015 2:2 4 PM CDT 4 g infusion 4 g, Intravenous, ONCE, On Wed03/26/15 at 1200, For 1 dose, FOR SEIZURE PROPHYLAXIS or NEUROPROTECTION. Infuse over 30 minutes per infusion control pump. Stay with patient during loading dose. Follow vital sign orders. misoprostol (CYTOTEC) suppository 800 mc g Given 03/24/2015 6:29 PM CDT 800 mcg 800 mcg, Rectal, ONCE PRN, for uterine atony, Starting on Wed03/24/15 at 1143, For 1 dose, Notify provider IF uterine atony and clarify with provider medication preference. oxytocin (PITOCIN) 20 units in 0.9% NaCl Started 015 6:29 PM CDT 1,000 mLs 1000 mL 0-1,000 mL, Intravenous, CONTINUOUS PRN, provider discretion to treat or prevent uterine atony, Starting on Wed03/24/15 at 1143, Notify provider IF uterine atony and clarify with provider medication preference. IV to run per provider discretion to treat or prevent uterine atony. IV to continue until patient stable. Discontinue or saline lock per nurse discretion. oxytocin (PITOCIN) 20 Rate/Dose Change 03/24/2015 5:30 4 khadar-unit s/min 12 mL/hr units in 0.9% NaCl 1000 PM CDT mL 1-24 khadar-units/min (3-72 mL/hr), Intravenous, CONTINUOUS, Starting on Wed03/24/15 at 1200, Start infusion at 2 milliunits/min. Increase by 1-2 milliunits/min every 30 minutes as clinically indicated until contractions are 2-3 minutes apart, lasting 45 to 60 seconds in duration to achieve labor progress. Max rate is 24 milliunits/min. Do not go higher without a provider order. If Oxytocin infusion is discontinued and off for less than 30 minutes, restart infusion at half of previous Oxytocin rate. If Oxytocin infusion has been discontinued equal to or greater than 30 minutes, begin at initial dose. New Bag 03/24/2015 5:16 PM CDT 2 khadar-units/min 6 mL/hr senna-docusate (SENOKOT-S;PERICOLACE) Given 03/27/2015 8:19 PM C DT 1 tablet 8.6-50 MG per tablet 1-2 tablet 1-2 tablet, Oral, 2 TIMES DAILY, First dose on Wed03/24/15 at 2100, Start with 1 tablet PO BID, If no bowel movement in 24 hours, increase to 2 tablets po BID. Hold for loose stools. Given 03/27/2015 8:45 AM CDT 1 tablet Given 03/24/2015 11:51 PM CDT 1 tablet sodium chloride (PF) 0.9% PF flush 3 mL Given 03/25/2015 4:11 PM CDT 3 mLs 3 mL, Intracatheter, EVERY 8 HOURS, First dose on Wed03/25/15 at 1530, And Q1H PRN, to lock peripheral IV dormant line. documented in this encounter Active and Recently Administered Medications Times are shown in CDT. Scheduled Medication Order 03/26/2015 03/27/2015 03/28/2015 amoxicillin-clavulanate (AUGMENTIN) 500-125 MG per tab let 1 tablet 0359 (Given - Provider: Merry Rodríguez)1220 (Given - Provider: Anne Mota RN)2004 (Given - Provider: Naya Maharaj RN) 0308 (Given - Provider: Merry Rodríguez)1 238 (Given - Provider: Brii Sheriff RN)2018 (Given - Provider: Chasity Peres LPN) 0408 (Given - Provider: Nakia abdul RN)1226 (Given - Provider: Brii Sheriff, ERROL) 1 tablet, Oral, EVERY 8 HOURS SCHEDULED, [...] 200 mg 1750 (Given - Provider: Bonnie Zepeda RN - Comment: pt sleeping)2355 (Given - Provider: Nakia De León RN) [...] Patient/family refused)2010 (Not Given - Provider: Naya Maharaj, ERROL - Reason: Patient/family refused) 0845 (Given - [...] total IV intake of 125 mL/hr, Starting 03/26/15 at 1200, Until Wed03/27/15 at 1443 magnesium sulfate 20 g in 500 mL infusion (CANCELED) 1 453 (New Bag - Provider: Coco Lezama RN - Comment: double checked with Joanie Mitchell RN) 0052 (New Bag - Provider: Merry Rodríguez)0845 (New Bag - Provider: Brii Sheriff RN)1115 (New Bag - Provider: Brii Sheriff RN) 2 g/hr (50 mL/hr), Intravenous, at 50 mL /hr, CONTINUOUS, Starting Wed03/26/15 at 1215, Not for use beyond 5 days in pre-term labor. PRN Medication Order 03/26/2015 03/27/2015 03/28/2015 ibuprofen (ADVIL,MOTRIN) tablet 400-800 mg 0040 (Given - Provider: Merry Rodríguez)1355 (Given - Provider: Anne Mota RN)2004 (Given - Provider: Naya Maharaj, ERROL) 0308 (Given - Provider: Merry Rodríguez)1 735 (Given - Provider: Chasity Peres LPN) 400-800 mg, Oral, EVERY 6 HOURS PRN, oth er, cramping, Starting 03/24/15 at 1911, Max dose 3200 mg/day. oxyCODONE (ROXICODONE) immediate release tablet 5-10 mg 5-10 mg, Oral, EVERY 3 HOURS PRN, modera te to severe pain, Starting 03/24/15 at 1911 documented in this encounter Care Teams Assistant Athletic Trainer Relationship Specialty Start Date End Date Clinic, [facility] PCP - General 12/26/14 07/03/16 [place] [address] documented as of this encounter
--- OUTSIDE RECORDS SUMMARY | 2022-09-05 18:59 | XMS_ITS | Encounter Summary ---
:1995 Author Organization [place] Address [address] [place] [address] Care Team Providers Name Role Phone Daniel [facility] Primary Care Provider [phone] Reason for Visit Reason Comments Recheck Medication depression meds Encounter Details Date Type Department Care Team Description 06/18/2016 Office Visit [facility] Kalin Suh MD Moderate bipolar II Clinic [place] [id number] [place] [address] disorder, most recent [id number] [place] [address] [place] [address] depressive (H) [phone] (Primary Dx) Social History Tobacco Use Types Packs/Day Years [...] Sign Reading Time Taken Comments Blood Pressure 126/74 06/18/2016 1:00 PM CDT Pulse 74 06/18/2016 1:00 PM CDT Temperature 36.7 ??C (98.1 ??F) 06/18/2016 1:00 PM CDT Respiratory Rate 16 06/18/2016 1:00 PM CDT Oxygen Saturation 98% 06/18/2016 1:00 PM CDT Inhaled Oxygen Concentration - - Weight 58.5 kg (129 lb) 06/18/2016 1:00 PM CDT Height 160 cm (5' 3) 06/18/2016 1:00 PM CDT Body Mass Index 22.85 06/18/2016 1:00 PM CDT documented in this encounter Progress Notes Kalin Suh MD - 06/18/2016 12:53 PM CDT SUBJECTIVE: Joel Amos is a 21 year old female who presents to clinic today for the following health issues: Depression and Anxiety Follow-Up ?? Status since last visit: Improved ?? Other associated symptoms: still having hard time sleeping, edwards thoughts and feeling at night. ?? Complicating factors: ?? Significant life event: No ?? Current substance abuse: None PHQ-9 SCORE 06/02/2016 06/16/2016 Total Score 18 15 FAITH-7 SCORE 06/02/2016 06/16/2016 Total Score 21 7 PHQ-9 Polish PHQ-9 Any Language GAD7 ?? Amount of exercise or physical activity: None ?? Problems taking medications regularly: No ?? [...] 30 tablet 3 No Known Allergies ROS: OBJECTIVE: BP 126/74 mmHg Pulse 74 Temp(Src) 98.1 ??F (36.7 ??C) (Oral) Resp 16 Ht 5' 3 (1.6 m) Wt 129 lb (58.514 kg) BMI 22.86 kg/m2 SpO2 98% Body mass index is 22.86 kg/(m^2). GENERAL: healthy, alert and no distress PSYCH: mentation appears normal, affect normal/bright ASSESSMENT/PLAN: 1. Moderate bipolar II disorder, most recent episode major depressive (H) Increase - risperiDONE (RISPERDAL) 1 MG tablet; Take 1 tablet (1 mg) by mouth daily Dispense: 60 tablet; Refill: 0 Continue on paxil, recheck in 2 weeks (via phone or visit) Kalin Suh MD [facility] documented in this encounter Nursing Notes Gabi Whitfield CMA - 06/18/2016 1:02 PM CDT Chief Complaint Patient presents with ??? Recheck Medication depression meds Initial BP 126/74 mmHg Pulse 74 Temp(Src) 98.1 ??F (36.7 ??C) (Oral) Resp 16 Ht 5' 3 (1.6 m) Wt 129 lb (58.514 kg) BMI 22.86 kg/m2 SpO2 98% Estimated body mass index is 22.86 kg/(m^2) ascalculated from the following: Height as of this encounter: 5' 3 (1.6 m). Weight as of this encounter: 129 lb (58.514 kg).. BP completed using cuff size regular [...] documented as of this encounter Care Teams Sociology Instructor Relationship Specialty Start Date End Date Clinic, [facility] PCP - General 12/26/14 07/03/16 [id number] [place] [address] documented as of this encounter
--- OUTSIDE RECORDS SUMMARY | 2022-09-05 18:59 | XMS_ITS | Encounter Summary ---
:1995 Author Organization [place] Address [address] [facility] [place] [address] Care Team Providers Name Role Phone [facility], [facility] Primary Care Provider [phone] Reason for Visit Reason Comments Rule Out Labor Encounter Details Date Type Department Care Team Description 03/11/2015 Hospital Encounter [facility] Mj Petit In dication for [facility] Birthplace MD Abisai in labor or delivery [address] CORPORATE RELATIONS MANAGER (Primary Dx) [place], [place] [facility] [phone] [address] [facility] [phone] [place] [address] Social History Tobacco Use Types Packs/Day Years [...] Sign Reading Time Taken Comments Blood Pressure 126/75 03/11/2015 9:02 AM CDT Pulse 85 03/11/2015 9:02 AM CDT Temperature 36.7 ??C (98.1 ??F) 03/11/2015 9:02 AM CDT Respiratory Rate - - Oxygen Saturation - - Inhaled Oxygen Concentration - - Weight 71.2 kg (157 lb) 03/11/2015 9:02 AM CDT Height 160 cm (5' 3) 03/11/2015 9:02 AM CDT Body Mass Index 27.81 03/11/2015 9:02 AM CDT Body Mass Index Percentile 90.41 % 03/11/2015 9:02 AM CD T Growth Chart: [facility] (Girls, 2-20 Years) documented in this encounter Discharge Instructions Discharge InstructionsLoAshwini Michael RN - 03/11/2015 11:24 AM CDT Discharge Instruction for Undelivered Patients You were seen for: Labor Assessment We Consulted: Dr. Petit Diet: Drink 8 to 12 glasses of liquids (milk, juice, water) every day. Activity: Count kicks everyday (see handout) Call your provider if you notice: Swelling [...] amount) Follow-up: As scheduled in the clinic of this week Notify clinic if nausea getting worse documented in this encounter Medications at Time of Discharge Medication Sig Dispensed Refills Start Date End Date amoxicillin (AMOXIL) 500 Take 1 capsule (500 30 capsule 0 03/24/2015 MG capsuleIndications: mg) by mouth 3 times Acute sinusitis with daily symptoms > 10 days CITALOPRAM HYDROBROMIDE Take 20 mg by mouth 0 03/24/2015 POIndications: daily Depression, Prescribed by doctor at [facility] fluticasone (FLONASE) 50 [place] 1-2 sprays 1 Package 1 11/1603/24/2015 MCG/ACT [...] documented as of this encounter Progress Notes Ashwini Bianchi RN - 03/11/2015 11:34 AM CDT Data: Patient presented to the Birthplace at 0842 03/11/15 Reason for maternal/ assessment per patient is Rule Out Labor . Patient is a . record reviewed. Obstetric History T0 TAB0 SAB0 E0 M0 L0 # Outcome Date GA Lbr Stuart/2nd Weight Sex Delivery Anes PTL Lv 1 Current Medical History: Past Medical History Diagnosis Date ??? Migraines ??? Depression ??? Anxiety . Gestational Age 35w2d. VSS. Cervix: -2, movement present. Patient denies backache, vaginal discharge, pelvic pressure, UTI symptoms, GI problems, bloody show, vaginal bleeding, edema, headache, visual disturbances, epigastric or URQ pain, abdominal pain, rupture of membranes. Support persons boyfriend and her mother present. Action: Verbal consent for EFM. Triage assessment completed. EFM applied for contractions . Uterine assessment completed. assessment: Presumed adequate oxygenation documented (see flow record). Patient education pamphlets given on movement counts and recognizing early signs of labor.Patient instructed to report change in movement, vaginal leaking of fluid or bleeding, abdominal pain, or any concerns related to the to her nurse/physician. Response: Dr. Petit informed of patient's arrival, FHT's of both babies, contraction pattern and SVE after 2 hours of monitoring. Plan per provider is check SVE after 2 hours of monitoring, MD checked first SVE check, NST, and call MD with results of all. Patient verbalized understanding of education and verbalized agreement with plan. Discharged ambulatory at 1125 Face to Face time: 30 minutes documented in this encounter Miscellaneous Notes Provider Notification - Ashwini Bianchi RN - 03/11/2015 11:14 AM CDT 03/11/15 1112 Provider Notification Provider Name/Title Dr. Petit Method of Notification Phone Request Evaluate - Remote Notification Reason Uterine Activity;Status Update;SVE MD called to update on SVE unchanged, /2, contractions are now 8-12 minutes apart at this time,updated MD that patient has felt intermittent nausea for the last 4 days. MD did not want to give Zofran at this time, but felt if it got worse she should call the office. Return to clinic as scheduled. Provider Notification - Ashwini Bianchi RN - 03/11/2015 9:27 AM CDT 03/11/15 0926 Provider Notification Provider Name/Title Dr. Petit Method of Notification Phone Request Evaluate - Remote Notification Reason Patient Arrived;Labor Status;Pain;SVE called to make sure what he wants for a plan. MD would like an NST, watch til 1100, hydrate with oral fluids, check SVE at 1100 and call back with an update. Provider Notification - Ashwini Bianchi RN - 03/11/2015 9:17 AM CDT 03/11/15 0850 Cervical Exam Dilation 1 Effacement (%) 70 Station -[address] Petit's check. Plan of Care - Ashwini Bianchi RN - 03/11/2015 9:00 AM CDT Patient arrives at 0842 to rule out labor. She is 19 years old, SPK, FOB involved, 35 1/7 weeks with twins. She states she woke up this morning around 0700 feeling contractions and was told ifshe felt more than 6 in an hour she should call the clinic. She states she felt around 9. External monitors placed per patient's permission. History and physical assessment completed. Patient denies any leaking of fluid, vaginal bleeding, headaches, epigastric pain, blurred vision or shortness of breath. Dr. Petit here and checked her cervix which was 1/70/-2 per his check, which is unchanged from her visit from last Wednesday. Patient states she has had Betamethesone x 2, and was on Nifedipine here in labor and delivery but did not need to continue it at home. Patient states her pain with contractions are less than a 3. Palpated contractions and they palpate mild-moderate. Patient is speaking through them. So far contractions are 5-7 minutes apart, will update Dr. Petit as needed. documented in this encounter Plan of Treatment Not on filedocumented as of this encounter Procedures Procedure Name Priority Date/Time Associated Comments Diagnosis NON-STRESS TEST 03/11/2015 12:00 - HIM SCAN AM CDT NEISSERIA GONORRHOEAE Routine 09/17/2014 Result s for this PCR procedure are i n the results section. CHLAMYDIA TRACHOMATIS Routine 09/17/2014 Result s for this PCR procedure are i n the results section. documented in this encounter Results NON-STRESS TEST - HIM SCAN (03/11/2015 12:00 AM CDT) Specimen (Source) Anatomical Location Collection Method / Collectio n Time Received Time / Laterality Volume 03/11/2015 Narrative This result has an attachment that is no t available. Provider Scan PROCEDURES Neisseria gonorrhoeae PCR (09/17/2014) P athologist Signature N Gonorrhea Negative PCR Patient Reported LAB - MICRO GENERAL ORDERABL ES Chlamydia trachomatis PCR (09/17/2014) Patholo gist Method Time Signature Chlamydia Negative Trachomatis PCR Patient Reported LAB - MICRO GENERAL ORDERABL ES documented in this encounter Visit Diagnoses Diagnosis Indication for care in labor or delivery - Primary Unspecified indication for care or inter vention related to labor and delivery, unspecified as to episode of care Indication for care in labor or delivery Unspecified indication for care or inter vention related to labor and delivery, unspecified as to episode of care documented in this encounter Active and Recently Administered Medications Care Teams Director Telehealth Relationship Specialty Start Date End Date [facility], [facility] PCP - General 12/26/14 07/03/16 [employer] PRODUCT DEVELOPMENT [employer] [address] documented as of this encounter
--- OUTSIDE RECORDS SUMMARY | 2022-09-05 19:00 | XMS_ITS | Encounter Summary ---
:1995 Author Organization [place] Address [address] [facility] [place] [address] Care Team Providers Name Role Phone Unavailable Primary Care Provider Unavailable Reason for Visit (Routine) - Closed Specialty Diagnoses / Procedures Referred By Contact Refer red To Contact Radiology / Diagnoses EPIC, approx 8 weeks Rh Ultrasound Rscc Radiology. Procedures US OB <14 WKS W TRANSVAG [place] [address] [place] [address] Phone: Fax: Referral ID Status Reason Start Date Expiration Date Visits Requ ested Visits Authorized [id number] Closed 08/17/2014 08/17/2015 1 1 Encounter Details Date Type Department Care Team Description 08/22/2014 Hospital Encounter [facility] David Breen [facility] ervision of [facility] Specialty MD Jared [facility] [address] [address] , first [address] [place] [phone] Social History Tobacco Use Types Packs/Day Years [...] on file documented as of this encounter Medications at Time of Discharge Medication Sig Dispensed Refills Start Date End Date CITALOPRAM HYDROBROMIDE Take 20 mg by mouth 0 03/24/2015 POIndications: daily Depression, Prescribed by doctor at [facility] Vit-Fe Take 1 tablet by 100 tablet [...] monthly 4 documented as of this encounter Plan of Treatment Not on filedocumented as of this encounter Procedures Procedure Name Priority Date/Time Associated Diagnosis Comme nts US OB <14 WKS Routine 08/22/2014 3:31 PM Supervision of Result s for this COMPLETE W TRANSVAG [employer] REPA[employer] TEACHER normal first procedur e are in MULTIPLE , first the results trimester section. documented in this encounter Results US OB 1St Trimester Multiple w Transvag (08/22/2014 3:31 PM [employer] REPA[employer] TE[employer]ER) Anatomical Region Laterality Modality Abdomen/Pelvis Ultrasound Specimen (Source) Anatomical Location Collection Method / Collectio n Time Received Time / Laterality Volume Impressions 08/24/2014 8:53 AM [employer] REPAIR TEACHER IMPRESSION: Twin live intrauterine measuring 6 weeks 3 days-6 weeks 4 days gestational age. KEVYN HARRIS MD Narrative 08/24/2014 8:53 AM H[employer] REPAIR TEACHER ULTRASOUND OBSTETRIC LESS THAN FOURTEEN WEEKS COMPLETE WITH TRANSVAGINAL, MULTIPLE ??08/22/2014 3:31 PM HISTORY: Verify dates and EDC. Supervisi on of normal first . TECHNIQUE: Transabdominal and transvagin al imaging were performed. Transvaginal imaging was performed to be tter evaluate the uterus and gestational sac. COMPARISON: ??None. FINDINGS: ??There is a twin live intraut erine . There is a single gestational sac with two yolk sac s and two poles. No membrane is seen between poles. Twin A: Estimated gestational age by current ult rasound measurement: 6 weeks 3 days. Estimated date of delivery based on this ultrasound: 04/14/2015. Mountain[place]-rump length: 0.6 cm. Embryonic cardiac activity: 128 bpm. Yolk sac: Present. Subchorionic hemorrhage: None. Twin B: Estimated gestational age by current ult rasound measurement: 6 weeks 4 days. Estimated date of delivery based on this ultrasound: 04/13/2015. [place]air-rump length: 0.7 cm. Embryonic cardiac activity: 130 bpm. Yolk sac: Present. Subchorionic hemorrhage: None. Right ovary: Unremarkable. Left ovary: Unremarkable. Adnexal mass: None. Free pelvic fluid: None. Procedure Note Kevyn Harris MD - 08/24/2014Form atting of this note might be different from the original. ULTRASOUND OBSTETRIC LESS THAN FOURTEEN WEEKS COMPLETE WITH TRANSVAGINAL, MULTIPLE 08/22/2014 3:31 P M HISTORY: Verify dates and EDC. Supervisi on of normal first . TECHNIQUE: Transabdominal and transvagin al imaging were performed. Transvaginal imaging was performed to be tter evaluate the uterus and gestational sac. COMPARISON: None. FINDINGS: There is a twin live intrauter ine . There is a single gestational sac with two yolk sac s and two poles. No membrane is seen between poles. Twin A: Estimated gestational age by current ult rasound measurement: 6 weeks 3 days. Estimated date of delivery based on this ultrasound: 04/14/2015. [place]air-rump length: 0.6 cm. Embryonic cardiac activity: 128 bpm. Yolk sac: Present. Subchorionic hemorrhage: None. Twin B: Estimated gestational age by current ult rasound measurement: 6 weeks 4 days. Estimated date of delivery based on this ultrasound: 04/13/2015. [place]air-rump length: 0.7 cm. Embryonic cardiac activity: 130 bpm. Yolk sac: Present. Subchorionic hemorrhage: None. Right ovary: Unremarkable. Left ovary: Unremarkable. Adnexal mass: None. Free pelvic fluid: None. IMPRESSION IMPRESSION: Twin live intrauterine pregn isabelle measuring 6 weeks 3 days-6 weeks 4 days gestational age. KEVYN HARRIS MD David Breen MD IMG US ORDERABLES documented in this encounter Visit Diagnoses Diagnosis Supervision of normal first , f irst trimester documented in this encounter
--- OUTSIDE RECORDS SUMMARY | 2022-09-05 19:00 | XMS_ITS | Encounter Summary ---
:1995 Author Organization [place] Address [facility] [address] Care Team Providers Name Role Phone Unavailable Primary Care Provider Unavailable Reason for Visit Reason Comments Care meet and greet, few question s about and medications, nausea, Encounter Details Date Type Department Care Team Description [facility]20[facility]2014 [facility] Charline Coleman MD normal first [id number] [place] [address] [place] , [address], [address] trimester ([place], [place]) [phone] [id number] Social History Tobacco Use Types Packs/Day Years [...] Sign Reading Time Taken Comments Blood Pressure 110/60 08/20/2014 3:19 PM READERS' ADVISORY SERVICE LIBRARIAN Pulse 76 08/20/2014 3:19 PM READERS' ADVISORY SERVICE LIBRARIAN Temperature 36.6 ??C (97.8 ??F) 08/20/2014 3:19 PM READERS' ADVISORY SERVICE LIBRARIAN Respiratory Rate 16 08/20/2014 3:19 PM READERS' ADVISORY SERVICE LIBRARIAN Oxygen Saturation - - Inhaled Oxygen Concentration - - Weight 54 kg (119 lb) 08/20/2014 3:19 PM READERS' ADVISORY SERVICE LIBRARIAN Height - - Body Mass Index 20.43 08/03/2014 1:53 PM CDT Body Mass Index Percentile 37.82 % 08/20/2014 3:19 PM CS T Growth Chart: [facility] (Girls, 2-20 Years) documented in this encounter Progress Notes David Breen MD - 08/20/2014 3:51 PM CST HPI Touching base for new . Not sure of LMP, US in two days. Having lots of nausea, without vomiting, especially in the evenings and night. 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 Also having some problems with dizziness night at work. Stopped her citalopram when she found out she was . Using for anxiety, but now finds that she's really worried, anxious. Having some back pain, especially while at work. Always some chronic back pain. Wondering about using chiropractor while . Review of Systems Constitutional: Negative. Respiratory: Negative. Cardiovascular: Negative. Gastrointestinal: Positive for nausea. Negative for vomiting, diarrhea and constipation. Musculoskeletal: Positive for back pain. Psychiatric/Behavioral: The patient is nervous/anxious. Physical Exam Constitutional: She is oriented to person, place, and time and well-developed, well-nourished, and in no distress. Eyes: Conjunctivae and EOM are normal. Cardiovascular: Normal rate, regular rhythm and normal heart sounds. Pulmonary/Chest: Effort normal and breath sounds normal. Abdominal: Soft. Bowel sounds are normal. There is no tenderness. There is no rebound and no guarding. Musculoskeletal: She exhibits no edema. Neurological: She is alert and oriented to person, place, and time. Skin: Skin is warm and dry. Vitals reviewed. (V22.0) Supervision of normal first , first trimester (primary encounter diagnosis) Comment: Plan: can start antidepressants if desired, ok for chiro Awaiting US for first official RTC in David Breen MD [employer]' ADVISORY SERVICE LIBRARIAN documented in this encounter Nursing Notes Annemarie Chiu MA - 08/20/2014 3:23 PM CST Chief Complaint Patient presents with ??? Care nausea Initial BP 110/60 Pulse 76 Temp(Src) 97.8 ??F (36.6 ??C) (Oral) Resp 16 Wt 119 lb (53.978 kg) ? No Estimated body mass index is 20.42 kg/(m^2) as calculated from the following: Height as of 08/03/14: 5' 4 (1.626 m). Weight as of this encounter: 119 lb (53.978 kg). BP completed using cuff size: regular Annemarie Chiu MA [employer]' ADVISORY SERVICE LIBRARIAN documented in this encounter Plan of Treatment Not on filedocumented as of this encounter Visit Diagnoses Diagnosis Supervision of normal first , f irst trimester - Primary documented in this encounter
--- OUTSIDE RECORDS SUMMARY | 2022-09-05 19:00 | XMS_ITS | Encounter Summary ---
:1995 Author Organization [place] Address [address] [place] [address] Care Team Providers Name Role Phone Unavailable Primary Care Provider Unavailable Reason for Visit Reason Comments OB Education OB Confirmation Encounter Details Date Type Department Care Team Description 08/03/[address] [facility] Absence of menstruation (Primary Dx); Visit Clinic [place] Supervision of normal first , first trimester [facility], [address] [place] [address] Social History Tobacco Use Types [...] Sign Reading Time Taken Comments Blood Pressure 117/78 08/03/2014 1:53 PM CDT Pulse - - Temperature - - Respiratory Rate - - Oxygen Saturation - - Inhaled Oxygen Concentration - - Weight 53.1 kg (117 lb) 08/03/2014 1:53 PM CDT Height 162.6 cm (5' 4) 08/03/2014 1:53 PM CDT Body Mass Index 20.08 08/03/2014 1:53 PM CDT Body Mass Index Percentile 33.09 % 08/03/2014 1:53 PM CD T Growth Chart: CDC (Girls, 2-20 Years) documented in this encounter Progress Notes Virginia Francois RN - 08/06/2014 8:40 AM CDT Subjective: 19 year old patient presents for confirmation. Her last menstrual period was unsure. She has had a positive HPT This is her 1st , G1, P0. She has had no previous deliveries. She would like to be seen here with Dr. Breen for her care. She has not started vitamins. She reports that she currently lives with her father and that he would not allow her to move out, hedoes not yet know of her . The father of the baby is still in highschool, does not have a entry level truck driver's license and no phone, she reports that his parents do not know. Exam: BP 117/78 Ht 5' 4 (1.626 m) Wt 117 lb (53.071 kg) BMI 20.07 kg/m2 General Appearance: Appears well, is comfortable, seems nervous. Her urine test is positive. Assessment: Positive confirmation. Plan: Patient has an EDC of unsure. Will plan to order an OB ultrasound in 2-3 weeks for dating. Presumed gestation of about 4-6 weeks. She will schedule her first OB appointment with Dr. Breen. Risk assessment done. We discussed medications, genetic screening, basic care, diet, exercise and a vitamin was ordered to her pharmacy. See under episode for Pre Term Labor Risk Assessment Virginia Francois RN NSED ELECTRICIAN documented in this encounter Plan of Treatment Not on filedocumented as of this encounter Procedures Procedure Name Priority Date/Time Associated Diagnosis Comme nts BETA HCG QUALITATIVE Routine 08/03/2014 1:45 PM Absence Of R esults for this IFA URINE CDT Menstruation procedure are i n the results section. documented in this encounter Results (ABNORMAL) Beta HCG qual IFA urine (08/03/2014 1:45 PM CDT) [facility] Method Time Signature Beta HCG Qual Positive (A) NEG [facility] Urine [facility] Specimen Anatomical Collection Method Collection Time Receive d Time (Source) Location / / Volume Laterality Urine specimen 08/03/2014 1:45 PM 014 1:46 (specimen) CDT PM CDT Bernardo Acosta PA-C LAB - URINE ORDERABLES Performing Organization Address City/State/ZIP Code Phon e Number [facility] [place] [address] documented in this encounter Visit Diagnoses Diagnosis Absence of menstruation - Primary Supervision of normal first , f irst trimester documented in this encounter
--- OUTSIDE RECORDS SUMMARY | 2022-09-05 19:00 | XMS_ITS | Encounter Summary ---
:1995 Author Organization [place] Address [facility] [place] [address] Care Team Providers Name Role Phone Unavailable Primary Care Provider Unavailable Reason for Visit Reason Comments URI Encounter Details Date Type Department Care Team Description 11/16/2014 Office Visit [facility] David Breen (uppe r Clinic [place] MD Jared respiratory [address] [place] [address] infection) ([facility], [address] [place] [address] Dx) [place], [place] [phone] (Wo rk) [address] [phone] Social History Tobacco Use Types Packs/Day Years [...] Sign Reading Time Taken Comments Blood Pressure 116/62 11/16/2014 2:28 PM ASTHMA EDUCATOR Pulse 101 11/16/2014 2:28 PM ASTHMA EDUCATOR Temperature 36.9 ??C (98.4 ??F) 11/16/2014 2:28 PM ASTHMA EDUCATOR Respiratory Rate - - Oxygen Saturation 97% 11/16/2014 2:28 PM ASTHMA EDUCATOR Inhaled Oxygen Concentration - - Weight 58.5 kg (129 lb) 11/16/2014 2:28 PM ASTHMA EDUCATOR Height - - Body Mass Index 22.14 08/03/2014 1:53 PM CDT Body Mass Index Percentile 58.67 % 11/16/2014 2:28 PM CS T Growth Chart: [facility] (Girls, 2-20 Years) documented in this encounter Progress Notes David Breen MD - 11/16/2014 10:16 AM CST HPI SUBJECTIVE: Joel Amos is a 19 year old female who presents to clinic today for the following health issues: RESPIRATORY SYMPTOMS ?? Duration: 3 days ?? Description nasal congestion, rhinorrhea, sore throat, facial pain/pressure, cough and headache ?? Severity: moderate ?? Accompanying signs and symptoms: see notes above ?? History (predisposing factors): exposure to smoke ?? Precipitating or alleviating factors: None ?? Therapies tried and outcome: Vaporizer, fluids and popsicles Nasal congestion, feeling poorly, BOB (mostly on L). Minimal cough. No n/v, diarrhea. No ear pain. Using vaporizer. Currently . Only taking PNV. Review of Systems Constitutional: Positive for malaise/fatigue. Negative for fever. HENT: Positive for congestion. Negative for sore throat. Respiratory: Positive for cough. Gastrointestinal: Negative. Skin: Negative for rash. Neurological: Positive for headaches. Physical Exam Constitutional: She is well-developed, well-nourished, and in no distress. No distress. HENT: Right Ear: Tympanic membrane, external ear and ear canal normal. Left Ear: Tympanic membrane, external ear and ear canal normal. Mouth/Throat: Oropharynx is clear and moist. No oropharyngeal exudate. Eyes: Conjunctivae are normal. Cardiovascular: Normal rate, regular rhythm and normal heart sounds. Pulmonary/Chest: Effort normal and breath sounds normal. Lymphadenopathy: She has no cervical adenopathy. Skin: Skin is warm and dry. No rash noted. Nursing note and vitals reviewed. (465.9) URI (upper respiratory infection) (primary encounter diagnosis) Comment: may use OTCs, Afrin tanner Plan: fluticasone (FLONASE) 50 MCG/ACT nasal spray RTC in 1w David Breen MD MA EDUCATOR documented in this encounter Nursing Notes Annetta Lemus CMA - 11/16/2014 2:33 PM CST Chief Complaint Patient presents with ??? URI Initial BP 116/62 Pulse 101 Temp(Src) 98.4 ??F (36.9 ??C) (Oral) Wt 129 lb (58.514 kg) SpO2 97% Estimated body mass index is 22.13 kg/(m^2) as calculated from the following: Height as of 14: 5' 4 (1.626 m). Weight as of this encounter: 129 lb (58.514 kg). BP completed using cuff size: kemi Lemus CMA MA EDUCATOR documented in this encounter Plan of Treatment Not on filedocumented as of this encounter Visit Diagnoses Diagnosis URI (upper respiratory infection) - Prim jeff Acute upper respiratory infections of un specified site documented in this encounter
--- OUTSIDE RECORDS SUMMARY | 2022-09-05 19:00 | XMS_ITS | Encounter Summary ---
:1995 Author Organization [place] Address [facility] [place] [address] Care Team Providers Name Role Phone Unavailable Primary Care Provider Unavailable Reason for Visit Reason Onset Date Comments Refill Request 04/17/2014 Microgestin FE 1.5-3 0 Encounter Details Date Type Department Care Team Description 04/17/2014 Refill [facility] Bernardo Acosta Refill Request Clinic [place] JAGDISH Pena (Microgestin FE 1.5-30) [address] [place] [address] [place], [place] [phone] (Wo rk) [address] [phone] Social History Tobacco Use Types Packs/Day Years [...] this encounter Miscellaneous Notes Telephone Encounter - Melina Borges RN - 04/17/2014 3:19 PM CDT Pending Prescriptions: Disp Refills norethindrone-ethinyl estradiol-iron (JIMMY*3 Pack*3 Sig: Take 1 tablet by mouth daily CONTRACEPTIVES Last Office Visit R/T Diagnosis: 03/12/2014 ORAL/PATCH CONTRACEPTIVES--May also be prescribed for acne NUVARING OV: 12 mths Max refills: 12 mths Tests: annual exam MAY REFILL ONE MONTH EXTRA IF DUE FOR EXAM AND VISIT SCHEDULED MAY ALSO BE RX'd FOR ACNE Medication approved per standing orders. Melina Borges RN documented in this encounter Plan of Treatment Not on filedocumented as of this encounter Visit Diagnoses Diagnosis Contraception Unspecified contraceptive management documented in this encounter
--- OUTSIDE RECORDS SUMMARY | 2022-09-05 19:00 | XMS_ITS | Encounter Summary ---
:1995 Author Organization [place] Address [facility] [place] [address] Care Team Providers Name Role Phone Unavailable Primary Care Provider Unavailable Reason for Visit Reason Onset Date Comments Refill Request 07/11/2014 Citalopram 10mg Encounter Details Date Type Department Care Team Description 07/11/2014 Refill [facility] Bernardo Acosta Refill Request Clinic [place] JAGDISH Pena (Citalopram 10mg) [address] [place] [address] [place], [place] [phone] (Wo rk) [address] [phone] Social History Tobacco Use Types Packs/Day Years [...] Telephone Encounter - Melina Borges RN - 07/13/2014 12:05 PM CDT Tried calling only phone number listed and it is no longer in service. Will send letter. Melina Borges RN Telephone Encounter - Bernardo Avelar PA-C - 07/11/2014 4:25 PM CDT Can you call and find out what this is about since we've never seen her for this before? Telephone Encounter - Melina Borges RN - 07/11/2014 2:26 PM CDT Pending Prescriptions: Disp Refills citalopram (CELEXA) 10 MG tablet 30 tab*0 Sig: Take 1 tablet (10 mg) by mouth daily Last Office Visit R/T Diagnosis: 03/12/2014 Last PHQ-9 score on record= No Value exists for the ABBEY: HP#[id number] Date: na Last filled: 06/13/2014 Med was not listed in patient's history. Melina Borges RN documented in this encounter Plan of Treatment Not on filedocumented as of this encounter Visit Diagnoses Not on filedocumented in this encounter
--- OUTSIDE RECORDS SUMMARY | 2022-09-05 19:00 | XMS_ITS | Encounter Summary ---
:1995 Author Organization [place] Address [address] [facility] [place] [address] Care Team Providers Name Role Phone Clinic, [facility] Primary Care Provider Reason for Visit Reason Comments Betamethasone Injection Encounter Details Date Type Department Care Team Description 02/18/2015 - Hospital Encounter [facility] Maria Victoria Robles MD [address] [place], [place] [id number] labor in 02/20/2015 [facility] Yolande Venegas MD [address] [place], [place] [address] third trimester with [address] Radha Galeas MD [address] [place], [place] [address] delivery, [place], [place] fetus 2 (Prim jeff Dx) [id number] Social History Tobacco Use Types Packs/Day Years [...] Sign Reading Time Taken Comments Blood Pressure 155/59 02/20/2015 9:06 AM CDT Pulse 109 02/19/2015 12:25 PM CDT Temperature 36.3 ??C (97.4 ??F) 02/20/2015 7:39 AM CDT Respiratory Rate 16 02/20/2015 7:39 AM CDT Oxygen Saturation - - Inhaled Oxygen Concentration - - Weight 69.9 kg (154 lb) 02/18/2015 4:48 PM CDT Height 162.6 cm (5' 4) 02/18/2015 4:48 PM CDT Body Mass Index 26.43 02/18/2015 4:48 PM CDT Body Mass Index Percentile 86.65 % 02/18/2015 4:48 PM CD T Growth Chart: [facility] (Girls, 2-20 Years) documented in this encounter Discharge Instructions Discharge InstructionsPersons, Naya He RN - 02/20/2015 8:27 AM CDT Discharge Instruction for Undelivered Patients You were seen for: Assessment and Uterine monitoring We Consulted: Dr. Ko You had (Test or Medicine):Betamethasone, Nifedipine, monitoring and contraction monitoring. Diet: Drink 8 to 12 glasses of liquids (milk, juice, water) every day. You may eat meals and snacks. Activity: Rest the pelvic area. No sex. Do not stimulate breasts or nipples. Stay on bed rest or partial bed rest. This means limit activities, periods of rest, Count kicks everyday (see handout) Call your doctor or nurse vocal teacher if your baby is moving less than [...] minutes apart for one hour or more. Second (plus) baby: Contractions (tightening) less than 10 minutes apart and getting stronger. *If less than 34 weeks: Contractions (tightenings) more than 6 times in one hour. Increase or change in vaginal discharge (note the color and amount) Other: Follow-up: As scheduled in the clinic AttachmentsThe following attachments cannot be sent through Care Everywhere.KICK COUNTS (PORTUGUESE)documented in this encounter Medications at Time of Discharge Medication Sig Dispensed Refills Start Date End Date amoxicillin (AMOXIL) 500 Take 1 capsule (500 30 capsule 0 03/24/2015 MG capsuleIndications: mg) by mouth 3 times Acute sinusitis with daily symptoms > 10 days CITALOPRAM HYDROBROMIDE Take 20 mg by mouth 0 03/24/2015 POIndications: daily Depression, Prescribed by doctor at [facility] fluticasone (FLONASE) 50 [place] 1-2 sprays 1 Package 1 11/1603/24/2015 MCG/ACT [...] documented as of this encounter Progress Notes Radha Ko MD - 02/20/2015 8:19 AM CDT HD 3 Feeling much better today. No contractions. Denies VB/ROM/UCs. +FM. Reactive NST VSS afebrile HEENT normal Abdomen soft and non tender Fundus Soft and non tender Cx per Dr. Venegas unchanged Extremities normal Assessment IUP at 32 4/7 weeks, twin vtx/vtx, premature contractions resolved with nifedipine. Received BMTZ x2 Plan D/C home this am. Modified bedrest. Will take last dose of Nifedipine at 3pm (24 hours after the 2nd dose of BMTZ) Has appt next Wednesday. Precautions reviewed. Yolande Venegas MD - 02/19/2015 9:39 AM CDT Labor Progress Note: S; Pt is here with contractions from clinic yesterday. Feeling occasional contractions today. Receiving BMZ and nifedipine. O: BP 133/72 Pulse 116 Temp(Src) 97.9 ??F (36.6 ??C) (Oral) Resp 18 Ht 1.626 m (5' 4) Wt 69.854 kg (154 lb) BMI 26.42 kg/m2 LMP (LMP Unknown) SVE: ft/60/-4 FHR: A: moderate baseline variability. \+ accelerations adn no decelerations. B: moderate baseline variability + accelerations and no decelerations. A/P: 19 yo di/di twin IUP. contractions. BMZ x 1 with nifedipine. 1. Repeat BMZ at 1600. Consider tocolysis for 24 hours after. WIll reassess at that time. Yolande Venegas documented in this encounter H&P Notes Maria Victoria Robles MD - 02/18/2015 6:06 PM CDT Joel Priyanka Papa is a 19 year old @ 32w2d with twin gestation in vtx/vtx presentation. She was seen in the office today and reported occasional ctx. Cervix was 1/60/-2, so she was sent to L&D for monitoring. On L&D, contractions are detected every 5-6 minutes with reactive tracings x 2. Plan: - BMNate for FLM - Nifedipine tocolysis Maria Victoria Robles documented in this encounter Miscellaneous Notes Plan of Care - Naya Santoyo RN - 02/20/2015 9:23 AM CDT Data: Patient presented to the Birthplace for monitoring and uterine monitoring. Reason for maternal/ assessment per patient is Betamethasone Injection . Patient is a . record reviewed. Obstetric History T0 TAB0 SAB0 E0 M0 L0 # Outcome Date GA Lbr Stuart/2nd Weight Sex Delivery Anes PTL Lv 1 Current Medical History: Past Medical History Diagnosis Date ??? Migraines ??? Depression ??? Anxiety . Gestational Age 32w4d. VSS. Cervix: fingertip dilated and effaced 50-70%. movement present. Patient denies cramping, backache, vaginal discharge, pelvic pressure, UTI symptoms, GI problems, bloody show, vaginal bleeding, edema, headache, visual disturbances, epigastric or URQ pain, abdominal pain, rupture of membranes. Support persons FOB present. Action: Verbal consent for EFM. Triage assessment completed. EFM applied for surveillance. Uterine assessment occasional contractions seen, pt not feeling contractions. assessment: Presumedadequate oxygenation documented (see flow record). Patient education pamphlets given on m ovement counts and when to call doctor and bedrest instructions. Patient instructed to report changein movement, vaginal leaking of fluid or bleeding, abdominal pain, or any concerns related to the to her nurse/physician. Response: Dr. Ko informed of assessments. Plan per provider is to discharge to home. Patient verbalized understanding of education and verbalized agreement with plan. Discharged ambulatory at 0925. Provider Notification - Naya Santoyo RN - 02/20/2015 8:59 AM CDT 02/20/15 0850 Provider Notification Provider Name/Title Dr. Cathryn Robles Method of Notification In Department Request Evaluate in Person Notification Reason Decels Dr Cathryn Robles reviewed FHR strip. Aware of variable decel for twin A. Provider Notification - Naya Santoyo RN - 02/20/2015 8:17 AM CDT 02/20/15 0816 Provider Notification Provider Name/Title Dr. Ko Method of Notification At Bedside Request Evaluate in Person Notification Reason Uterine Activity;Pain;Status Update Dr. Ko at bedside to evaluate pt. Occasional UC's throughout night, pt not feeling contractions. Will get reactive NST on both babies and then plan to discharge to home on modified bed rest and pelvic rest. Will send with Nifedipine home with pt x 1 dose. Will follow up in clinic next week. Plan of Care - Jackie Florez RN - 02/20/2015 7:14 AM CDT Report given to Naya NORTON, all questions answered. Plan of Care - Jackie Florez RN - 02/19/2015 11:30 PM CDT Report received from Edgard NORTON. Discussed plan of care with patient, and plans to give nifedipine and apply monitor at 0300. Encouraged patient to call if having contractions, if she would like ambien, or for any other concerns. Plan of Care - Edgard Sawyer RN - 02/19/2015 9:00 PM CDT Pt showered, able to doze/relax, ate well , denies pain. Denied needing ambien at this time, educated on appropriate time to take if needed. Questions answered. Plan of Care - Edgard Sawyer RN - 02/19/2015 7:22 PM CDT Pt sitting eating dinner and had a UC x 5mins, mild by palpation. repostioned pt to LL and reassured. Us appied to monitor babies- pt feeling better after laying down. Reviewed positioning with pt, questions answered Plan of Care - Edgard Sawyer RN - 02/19/2015 5:45 PM CDT Assumed cares. Reviewed plan with pt and questions answered. Pt will eat, then monitor babies, shower then may try ambien for sleep. Pt having occ UC, feels some not all, feels like mild cramp. Pt comfortable, denies pain, feels babies moving Provider Notification - Nita Kulkarni RN - 02/19/2015 4:59 PM CDT 02/19/15 1658 Provider Notification Provider Name/Title Dr. Venegas Method of Notification Phone Request Evaluate - Remote Notification Reason Status Update Dr. Venegas called unit and updated on contraction pattern, second dose of betamethasone administered at 1630. Order received to keep overnight for continued monitoring, with once per shift NST and continuous toco, continue with nifedipine per orders. Order for 5mg ambien PO at bedtime for sleep PRN. Vishal hendricks MD will see and evaluate further in the morning. Provider Notification - Naya Santoyo RN - 02/19/2015 3:23 PM CDT 02/19/15 1508 Provider Notification Provider Name/Title Dr Venegas Method of Notification Phone Request Evaluate - Remote Notification Reason Other (Comment) Pt requesting to have a break from monitoring. MD updated that both FHR's are reactive with twin B having occasional variable decels. Order to take off ultra sound and now do intermittent monitoring. Will give 2nd betamethasone and then notify MD for further orders. Provider Notification - Naya Santoyo RN - 02/19/2015 10:30 AM CDT 02/19/15 0939 Provider Notification Provider Name/Title Dr Venegas Method of Notification At Bedside Request Evaluate in Person Notification Reason Uterine Activity;Maternal Vital Sign Change;Status Update;SVE Dr Venegas at bedside. Reviewed FHR strips and UC pattern. SVE done, no change noted. Plan to remain on bedrest while here may shower after 2nd betamethasone Injection. Plan of Care - Naya Santoyo RN - 02/19/2015 8:34 AM CDT Pt feeling occasional tightening, no cramping or contraction pain. Abdomen palpates soft. Denies anyvaginal bleeding or leaking of fluid. Occasional nausea and headache. Pt states not new symptoms. Plan for Nifedipine and Betamethasone as scheduled. Plan of Care - Batsheva Hussein RN - 02/19/2015 6:00 AM CDT Pt c/o feeling ctx, rating pain 7/10, EFM applied. Will continue to monitor. Provider Notification - Batsheva Hussein RN - 02/19/2015 2:56 AM CDT 02/19/15 0250 Provider Notification Provider Name/Title Dr Mojgan Robles Method of Notification In Department Request Evaluate in Person Having difficulty keeping babies on the monitor d/t frequent maternal movement. OK to remove pt frommonitor for the rest of the evening. Provider Notification - Batsheva Hussein RN - 02/18/2015 10:12 PM CDT 02/18/152029 Provider Notification Provider Name/Title Dr Mojgan Robles Method of Notification In Department Request Evaluate in Person Notification Reason Status Update Physician reviews tracing. Pt states that she is feeling ctx, and more aware of them. Orders received to observe pt overnight, continue nifedipine as ordered. Plan to send home in AM. Provider Notification - Batsheva Hussein RN - 02/18/2015 10:10 PM CDT 02/18/15 1923 Provider Notification Provider Name/Title Dr Mojgan Robles Method of Notification In Department Request Evaluate in Person Notification Reason Status Update Physician in department, reviews tracing. Plan to observe x1 hour, if ctx <10 minutes apart, pt can go home on modified bedrest and continue nifedipine. Plan of Care - Amarilys Bradford RN - 02/18/2015 7:19 PM CDT Bedside handoff given to Blake NORTON Provider Notification - Amarilys Bradford RN - 02/18/2015 5:25 PM CDT 02/18/15 1724 Provider Notification Provider Name/Title Dr. Ted Robles Method of Notification Phone Request Evaluate - Remote Notification Reason Patient Arrived;Status Update;Uterine Activity , 32 2/7 weeks gestation. Was seen at clinic today, cervix 1 at clinic. Sent to hospital for observation. Monitors explained and applied. Urine specimen to lab. Patient now hernando every 6 minutes. Patient denies feeling contractions. Both babies have reactive tracings. Betamethasone given. Urine results and above reported to Dr. Robles per phone. Order received to give Nifedipine. documented in this encounter Plan of Treatment Not on filedocumented as of this encounter Procedures Procedure Name Priority Date/Time Associated Comments Diagnosis ROUTINE UA WITH STAT 02/18/2015 4:00 PM Result s for this MICROSCOPIC REFLEX TO CDT proced ure are in CULTURE the results section. NON-STRESS TEST 02/18/2015 12:00 - HIM SCAN AM CDT RUBELLA ANTIBODY IGG Routine 09/17/2014 Results for this procedure are i n the results section. HIV ANTIGEN ANTIBODY Routine 09/17/2014 Results for this COMBO procedure are i n the results section. HEPATITIS B SURFACE Routine 09/17/2014 Results for this ANTIGEN procedure are i n the results section. ANTI TREPONEMA Routine 09/17/2014 Results for t his procedure are i n the results section. documented in this encounter Results (ABNORMAL) UA with Microscopic reflex to Culture (02/18/2015 4:00 PM CDT) [facility] Method Time Signature Color Urine Light Yellow [facility] Appearance Urine Clear [facility] Glucose Urine Negative NEG mg/dL [facility] Bilirubin Urine Negative NEG [facility] Ketones Urine Negative NEG mg/dL [facility] Specific [place] 1.010 1.003 - [place] Urine 1.035 [facility] Blood Urine Negative NEG [facility] pH Urine 6.0 5.0 - 7.0 [place] pH [facility] Protein Albumin Negative NEG mg/dL [facility] Urobilinogen Normal 0.0 - 2.0 [place] mg/dL mg/dL [facility] Nitrite Urine Negative NEG [facility] Leukocyte Trace (A) NEG [place] Esterase Urine [facility] Source Midstream [facility] WBC Urine 2 0 - 2 [place] /HPF [facility] RBC Urine <1 0 - 2 [facility] Bacteria Urine Few (A) NEG /HPF [facility] Squamous 2 (H) 0 - 1 [place] Epithelial /HPF /HPF [facility] Mucous Urine Present (A) NEG /LPF [facility] Specimen Anatomical Collection Method Collection Time Receive d Time (Source) Location / / Volume Laterality Urine specimen URINE SPECIMEN 02/18/2015 4:00 PM 02/18 4:27 (specimen) OBTAINED BY CLEAN CDT PM CDT CATCH PROCEDURE / Unknown Maria Victoria Robles MD LAB - URINE ORDERABLES Performing Organization Address City/State/ZIP Code Phon e Number M [facility] [address] [place], [place] [address] [facility] [address] [place], [place] [address], [facility] [phone] NON-STRESS TEST - HIM SCAN (02/18/2015 12:00 AM CDT) Specimen (Source) Anatomical Location Collection Method / Collectio n Time Received Time / Laterality Volume 02/18/2015 Narrative This result has an attachment that is no t available. Provider Scan PROCEDURES Rubella Antibody IgG Quantitative (09/17/2014) Analysis Performed At [facility] Signature Rubella JOLEEN non-immune IgG Specimen (Source) Anatomical Location Collection Method / Collectio n Time Received Time / Laterality Volume Blood specimen (specimen) Patient Reported LAB - BLOOD ORDERABLES HIV Antigen Antibody Combo (09/17/2014) Analysis Performed At [facility] Signature HIV Antigen non-reacti Antibody Combo ve Specimen (Source) Anatomical Location Collection Method / Collectio n Time Received Time / Laterality Volume Blood specimen (specimen) Patient Reported LAB - BLOOD ORDERABLES Hepatitis B surface antigen (09/17/2014) athologist Signature Hep B Surface negative Agn Specimen (Source) Anatomical Location Collection Method / Collectio n Time Received Time / Laterality Volume Blood specimen (specimen) Patient Reported LAB - BLOOD ORDERABLES Anti Treponema (09/17/2014) Analysis Performed At [facility] Signature Treponema non-reacti pallidum ve Antibody Specimen (Source) Anatomical Location Collection Method / Collectio n Time Received Time / Laterality Volume Blood specimen (specimen) Patient Reported LAB - BLOOD ORDERABLES documented in this encounter Visit Diagnoses Diagnosis labor in third trimester with pr eterm delivery, fetus 2 - Primary Encounter for triage in patient documented in this encounter Administered Medications Inactive Administered Medications - up to 3 most recent administrations Medication Order MAR Action Action Date Dose Rate Site betamethasone acet & sod phos Given 02/19/2015 4:32 PM CDT 12 mg (CELESTONE) injection 12 mg 12 mg, Intramuscular, EVERY 24 HOURS, First dose on Wed02/18/15 at 1600, For 2 doses Given 02/18/2015 4:32 PM CDT 12 mg NIFEdipine (PROCARDIA) capsule 20 mg Given 02/18/2015 5:44 PM CDT 20 mg 20 mg, Oral, ONCE, On Wed02/18/15 at 1730, For 1 dose, Give NOW. If uterine activity not suppressed, may repeat PRN every 30 minutes for 2 doses (see PRN order). HOLD if Systolic Blood Pressure less than 90 mmHg and or Diastolic Blood Pressure less than 50 mmHg NIFEdipine (PROCARDIA) capsule 20 mg Given 02/20/2015 9:06 AM CDT 20 mg 20 mg, Oral, EVERY 6 HOURS, First dose on Wed02/18/15 at 1730, *NURSE TO SCHEDULE FIRST DOSE to begin 6 hours after any prior doses given to suppress uterine activity.* Maximum NIFEdipine dose = 160 mg/ 24 hours. HOLD if Systolic Blood Pressure less than 90 mmHg and/or Diastolic Blood Pressure less than 50 mmHg. Given 02/20/2015 3:04 AM CDT 20 mg Given 02/19/2015 9:07 PM CDT 20 mg documented in this encounter Active and Recently Administered Medications Times are shown in CDT. Scheduled Medication Order 02/18/2015 02/19/2015 02/20/2015 betamethasone acet & sod phos (CELESTONE) injection 12 mg (COMPLETED) 1632 (Given - Provider: Amarilys Bradford RN) 1632 (Given - Provider: Lindsey Peters RN) 12 mg, Intramuscular, EVERY 24 HOURS, Fi rst dose on Wed02/18/15 at 1600, For 2 doses NIFEdipine (PROCARDIA) capsule 20 mg (COMPLETED) 174 (Given - Provider: Amarilys Bradford RN) 20 mg, Oral, ONCE, Wed02/18/15 at 1730, For 1 dose, Give NOW. If uterine activity not suppressed, may repeat PRN every 30 minutes for 2 doses (see PRN order). HOLD if Systolic Blood Pressure less than 9 0 mmHg and or Diastolic Blood Pressure less than 50 mmHg NIFEdipine (PROCARDIA) capsule 20 mg 2101 (Given - Provider: Batsheva Hussein RN) 0305 (Given - Provider: Batsheva Hussein RN)0814 (Canceled Entry - Provider: Naya Santoyo RN)0906 (Given - Provider: Naya Santoyo RN)1508 (Given - Provider: Naya Santoyo RN)2107 (Given - Provider: Edgard Sawyer RN) 0304 (Given - Provider: Aneta Gates, ERROL)0906 (Given - Provider: Naya Santoyo RN) 20 mg, Oral, EVERY 6 HOURS, First dose o n 02/18/15 at 1730, *NURSE TO SCHEDULE FIRST DOSE to begin 6 hours after any prior doses given to suppress uterine activity.* Maximum NIFEdipine dose = 160 mg/ 24 hours. HOLD if Systolic Blood Pressu re less than 90 mmHg and/or Diastolic Blood Pressure less than 50 mmHg. documented in this encounter Care Teams Marketing Development Specialist Relationship Specialty Start Date End Date [facility] PCP - General 12/26/14 07/03/16 [address] [place] [address] documented as of this encounter
--- OUTSIDE RECORDS SUMMARY | 2022-09-05 19:00 | XMS_ITS | Encounter Summary ---
:1995 Author Organization [place] Address [facility] [place] [address] Care Team Providers Name Role Phone Unavailable Primary Care Provider Unavailable Reason for Visit Reason Onset Date Comments Refill Request 05/16/2014 Sumatriptan 100mg Encounter Details Date Type Department Care Team Description 05/16/2014 Refill [facility] Bernardo Acosta Refill Request Clinic [place] JAGDISH Pena (Sumatriptan 100mg) [address] [place] [address] [place], [place] [phone] (Wo rk) [address] [phone] Social History Tobacco Use Types Packs/Day Years [...] Telephone Encounter - Melina Borges RN - 05/16/2014 8:47 AM CDT Pending Prescriptions: Disp Refills SUMAtriptan (IMITREX) 100 MG tablet 9 tabl*1 Sig: Take 1 tablet (100 mg) by mouth at onset of headache for migraine May repeat in 2 hours if needed: max 2/day; average number of headaches monthly 4 Last OV: 03/12/2014 Reason: Migraine Last filled: 04/16/2014 #9 No results found for this basename: Cr Unable to fill per RN protocol. Will route to provider. Melina Borges RN documented in this encounter Plan of Treatment Not on filedocumented as of this encounter Visit Diagnoses Diagnosis Migraine without aura, without mention o f intractable migraine without mention of status migrainosus documented in this encounter
--- OUTSIDE RECORDS SUMMARY | 2022-09-05 19:00 | XMS_ITS | Encounter Summary ---
:1995 Author Organization [place] Address [facility] [place] [address] Care Team Providers Name Role Phone Unavailable Primary Care Provider Unavailable Reason for Visit Reason Comments Abdominal Pain x10 days Encounter Details Date Type Department Care Team Description 04/27/2014 [facility]DISH Pena ENCOUNTER--DISREGARD [place] [address] [facility] (Primary Dx) [facility], [address] [place] [address] [place], [place] [phone] (Wo rk) [address] [phone] Social History Tobacco Use Types Packs/Day Years [...] documented as of this encounter Progress Notes Bernardo Avelar PA-C - 04/30/2014 7:50 PM CDT Appointment canceled. documented in this encounter Plan of Treatment Not on filedocumented as of this encounter Visit Diagnoses Diagnosis ERRONEOUS ENCOUNTER--DISREGARD - Primary documented in this encounter
--- OUTSIDE RECORDS SUMMARY | 2022-09-05 19:00 | XMS_ITS | Encounter Summary ---
:1995 Author Organization [place] Address [facility] [place] [address] Care Team Providers Name Role Phone Unavailable Primary Care Provider Unavailable Reason for Visit Reason Onset Date Comments Care 08/20/2014 LMTCB Encounter Details Date Type Department Care Team Description 08/20/2014 Telephone [facility] Charline Coleman MD [address] [place] [address] [address] [place] [address] [place], [place] [phone] (Wo rk) [address] [phone] Social History Tobacco Use Types Packs/Day Years [...] this encounter Miscellaneous Notes Telephone Encounter - Virginia Francois RN - 08/20/2014 8:06 AM CST Patient had left a message on my voice mail requesting I give her a call back, would like an appointment with Dr. Breen for today to discuss sx's in and having trouble at work related to these sx's. I called her back, patient reports nausea without emesis, cramping, light spotting x 1. Would like to discuss an Rx for nausea and a possible letter for work. Requesting to see Dr. Breen today. Has an ultrasound scheduled for this Wednesday08/22/14 for dating. Appointment scheduled with Dr. Breen for today at 3:15pm. Virginia Francois RN S [employer] documented in this encounter Plan of Treatment Not on filedocumented as of this encounter Visit Diagnoses Not on filedocumented in this encounter
--- OUTSIDE RECORDS SUMMARY | 2022-09-05 19:00 | XMS_ITS | Encounter Summary ---
:1995 Author Organization [place] Address [address] [facility] [place] [address] Care Team Providers Name Role Phone [facility], [facility] Primary Care Provider [phone] Reason for Visit GISELA Physical Therapy (Routine) - Closed Specialty Diagnoses / Procedures Referred By Contact Refer red To Contact Maria Victoria Robles MD [facility] [address] [facility] [address] [place] [address] [address] [place] [address] Phone: Fax: Referral ID Status Reason Start Date Expiration Date Visits V isits Requested Authorized GISELA/UCARE/HIP/ Closed 01/16/2015 03/10/2015 2 2 [id number] Encounter Details Date Type Department Care Team Description 01/16/2015 Therapy Visit [facility] Zelda Dowell, Pain in joint, Rehabilitation Services PT pelvic region and [facility] [address], left ([place] [address] Dx) [address] [phone] [address] (Work) [place] [address] Social History Tobacco Use Types Packs/Day Years [...] documented as of this encounter Progress Notes Zelda Dowell, PT - 02/01/2015 12:55 PM CDT No further appointments were scheduled beyond the initial evaluation. Discharge from therapy. Zelda Dowell, PT - 01/16/2015 7:12 AM CDT Subjective: Joel Amos is a 19 year old female with a left hip condition. Condition occurred: other (). This is a new condition December 2014. Patient reports pain: Posterior, lateral and greater trochanter. Radiates to: Low back, hip and knee. Pain is described as aching and is constant and reported as 6/10. Pain is the same all the time. Symptoms are exacerbated by descending stairs, ascending stairs and activity and relieved by nothing. Since onset symptoms are unchanged. Previous treatment includes chiropractic. There was no improvementfollowing previous treatment. General health as reported by patient is fair. Pertinent medical history includes: Currently , depression and migraines. Medical allergies: not answered by patient. Other surgeries include: None reported. Medication history: vitamins. Current occupation is [employer]. Patient is working in normal job without restrictions. Primary job tasks include: Prolonged standing, lifting, repetitive tasks and driving. Barriers include: None as reported by the patient. Objective: Standing Alignment: Lumbar: Normal Pelvic: Normal Gait: Gait Type: Antalgic Flexibility/Screens: Lower Extremity: Decreased left lower extremity flexibility:IT Band and Hamstrings Decreased right lower extremity flexibility: Hamstrings Lumbar/SI Evaluation ROM: AROM Lumbar: Flexion: 50% Ext: Full end range LB pain Side Bend: Left: Right: Rotation: Left: Right: Side [place]: Left: Right: Lumbar Myotomes: normal Lumbar DTR's: not assessed Lumbar Palpation: Palpation (lumbar): L ITB thru out. Tenderness present at Left: Piriformis; PSIS and Greater Trochanter SI joint/Sacrum: Good alignment General ROS Assessment/Plan: Patient is a 19 year old female with lumbar and left side hip complaints. Patient has the following significant findings with corresponding treatment plan. Diagnosis 1: LBP in Pain - hot/cold therapy, manual therapy, splint/taping/bracing/orthotics, self management, education, directional preference exercise and home program Decreased ROM/flexibility - manual therapy, therapeutic exercise and home program Decreased function - therapeutic activities Diagnosis 2: l lateral hip pain Pain - hot/cold therapy, manual therapy, splint/taping/bracing/orthotics, self management, education and home program Decreased ROM/flexibility - manual therapy, therapeutic exercise and home program Decreased function - therapeutic activities and home program Previous and current functional limitations: (See Goal Flow Sheet for this information) Short term and shelter goals: (See Goal Flow Sheet for this information) Communication ability: Patient appears to be able to clearly communicate and understand verbal and written communication and follow directions correctly. Treatment Explanation - The following has been discussed with the patient: RX ordered/plan of care Anticipated outcomes Possible risks and side effects This patient would benefit from PT intervention to resume normal activities. Rehab potential is good. Frequency: 1 X week, once daily Duration: for 2 weeks Discharge Plan: Achieve all LTG. Independent in home treatment program. Reach maximal therapeutic benefit. Please refer to the daily flowsheet for treatment today, total treatment time and time spent performing 1:1 timed codes. documented in this encounter Plan of Treatment Not on filedocumented as of this encounter Procedures Procedure Name Priority Date/Time Associated Diagnosis Comme nts [facility] MANUAL THER Routine 01/16/2015 8:54 AM Pain in joint, pelv ic TECH,1+REGIONS,EA 15 MIN CDT region and thigh , left [facility] THERAPEUTIC Routine 01/16/2015 8:54 AM Pain in joint, pelv ic EXERCISES CDT region and thigh, left documented in this encounter Visit Diagnoses Diagnosis Pain in joint, pelvic region and thigh, left - Primary documented in this encounter Care Teams Experience Planning Strategist Relationship Specialty Start Date End Date [facility], [facility] PCP - General 12/26/14 07/03/16 [address] [place] [address] documented as of this encounter
--- OUTSIDE RECORDS SUMMARY | 2022-09-05 19:00 | XMS_ITS | Encounter Summary ---
:1995 Author Organization [place] Address [address] [place] [address]. [place] [address] Care Team Providers Name Role Phone Unavailable Primary Care Provider Unavailable Reason for Visit Reason Comments Clinic Care Coordination - Initial Encounter Details Date Type Department Care Team Description 09/04/2014 [facility] MD Jared Coordination - [address] [place] [address] [facility] ( ) [place] [address] [id number] Social History Tobacco Use Types Packs/Day Years [...] documented as of this encounter Progress Notes Mamie Perkins, ADRIANO - 09/04/2014 3:36 PM CST Care Coordination Contact Attempt-Social Work Referral Source: Dr. David Breen Clinical Data: Pt has 1st , and has some social support concerns. Outreach attempted x3. Left message on voicemail with call back information and requested return call. Plan: Care Coordination will assist when call is returned. No further follow up necessary at this time. JESSE Hanna Care Coordination-social insurance analyst [phone] DDED NURSE documented in this encounter Plan of Treatment Not on filedocumented as of this encounter Visit Diagnoses Diagnosis Health Group Home - Primary notesas part of the Health [facility] Home [facility] to capture care coordination pl documented in this encounter
--- OUTSIDE RECORDS SUMMARY | 2022-09-05 19:00 | XMS_ITS | Encounter Summary ---
:1995 Author Organization [place] Address [facility] [place] [address] Care Team Providers Name Role Phone Unavailable Primary Care Provider Unavailable Reason for Visit Reason Onset Date Comments Refill Request 06/21/2014 Sumatriptan 100mg Encounter Details Date Type Department Care Team Description 06/21/2014 [facility] [place] JAGDISH Pena (Sumatriptan 100mg) [id number] [place] [address] [address] [place] [address] [place], [place] [phone] (Wo rk) [address] [phone] Social History Tobacco Use Types Packs/Day Years [...] Telephone Encounter - Melina Borges RN - 06/22/2014 3:41 PM CDT Phone number not in service. Letter sent to patient. Melina Borges RN Telephone Encounter - Bernardo Avelar PA-C - 06/22/2014 11:30 AM CDT I won't deny as I know she may need it for BOB's but this is too many refills in too short a time. She should come in for a visit to talk about BOB's and looks like may be due for follow up re: OCP's andphysical. Please call and discuss. Thanks. [facility]. Telephone Encounter - Melina Borges RN - 06/21/2014 4:08 PM CDT Pending Prescriptions: Disp Refills SUMAtriptan (IMITREX) 100 MG tablet 9 tabl*1 Sig: Take 1 tablet (100 mg) by mouth at onset of headache for migraine May repeat in 2 hours if needed: max 2/day; average number of headaches monthly 4 Last OV: 03/12/2014 Reason: Vaginal bleeding Last filled: na No results found for this basename: Cr Unable to fill per RN protocol. Will route to provider. Melina Borges RN documented in this encounter Plan of Treatment Not on filedocumented as of this encounter Visit Diagnoses Diagnosis Migraine without aura, without mention o f intractable migraine without mention of status migrainosus documented in this encounter
--- OUTSIDE RECORDS SUMMARY | 2022-09-05 19:00 | XMS_ITS | Encounter Summary ---
:1995 Author Organization [place] Address [address] [place] [address] Care Team Providers Name Role Phone Unavailable Primary Care Provider Unavailable Reason for Visit Reason Comments Abnormal Bleeding Problem had period week ago and star lainey again. Had depo last august but didnt get next shot for Nov and bled for 8 months Health Maintenance lamydia screening due Encounter Details Date Type Department Care Team Description 03/12[facility]2014 [facility] for unspecified chlamyd[facility] disease (Primary Dx); [facility] [place] JAGDISH Pena Contraception; [place] [address] [address] Irregular menstrual cycle; Road, [address] [place] [address] Migraine without aura, without mention o f intractable migraine without mention of status migrainosus; [place], [place] [phone] (Wo rk) Mig[place] [address] [phone] Social History Tobacco Use Types Packs/Day Years [...] Reading Time Taken Comments Blood Pressure 118/68 03/12/2014 11:01 AM CDT Pulse 82 03/12/2014 11:01 AM CDT Temperature 37.2 ??C (98.9 ??F) 03/12/2014 11:01 AM CDT Respiratory Rate 14 03/12/2014 11:01 AM CDT Oxygen Saturation - - Inhaled Oxygen Concentration - - Weight 53.1 kg (117 lb) 03/12/2014 11:01 AM CDT Height 162.6 cm (5' 4) 03/12/2014 11:01 AM CDT Body Mass Index 20.08 03/12/2014 11:01 AM CDT Body Mass Index Percentile 34.82 % 03/12/2014 11:01 AM C DT Growth Chart: [facility] (Girls, 2-20 Years) documented in this encounter Progress Notes Bernardo Avelar PA-C - 03/12/2014 11:06 AM CDT SUBJECTIVE: Joel Amos is a 18 year old female who presents to clinic today for the following health issues: Vaginal Bleeding (Dysmenorrhea) ?? Onset: May 2013 ?? Description: Duration of bleeding episodes: since Depo injection 05/2013 Frequency between periods: See above Describe bleeding/flow: Clots: no Number of pads/hour: Cramping: mild ?? Accompanying Signs & Symptoms: Weakness: no Lightheadedness: no Hot flashes: no Nosebleeds/Easy bruising: no Vaginal Discharge: no ?? History: No LMP recorded. Patient is not currently having periods (Reason: Irregular Periods). Previous normal periods: YES Contraceptive use: Depo-Provera and none currently Possibility of : YES Any bleeding after intercourse: no Age of first period (menarche): Abnormal PAP Smears: no ?? Precipitating factors: ?? Alleviating factors: ?? Therapies Tried and outcome: First depo shot May, second in Aug. Was due in Nov but didn't get the injection. While on Depo shot had daily spotting. Had a regular period now in January and again in February. Has one again now which is two weeks early. Not using any sort of BC at this time, wants to be on some. Some pain and cramping. No discharge, itching. Patient also mentions a possible hx of migraine BOB's. Mother gets them also. 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 Nausea, throbbing. No vomiting. Photophobia. advil is not helping. Problem list and histories reviewed & adjusted, as indicated. Additional history: as documented Problem list, Medication list, Allergies, and Medical/Social/Surgical histories reviewed in EPIC andupdated as appropriate. ROS: Constitutional, HEENT, cardiovascular, pulmonary, gi and gu systems are negative, except as otherwise noted. OBJECTIVE: BP 118/68 Pulse 82 Temp(Src) 98.9 ??F (37.2 ??C) (Oral) Resp 14 Ht 5' 4 (1.626 m) Wt 117 lb (53.071 kg) BMI 20.07 kg/m2 Body mass index is 20.07 kg/(m^2). GENERAL APPEARANCE: healthy, alert and no distress CV: regular rates and rhythm, normal S1 S2, no S3 or S4 and no murmur, click or rub SKIN: no suspicious lesions or rashes NEURO: Normal strength and tone, mentation intact and speech normal PSYCH: mentation appears normal and affect normal/bright Diagnostic test results: none ASSESSMENT/PLAN: (V73.98) Special screening examination for unspecified chlamydial disease (primary encounter diagnosis) Comment: Plan: NEISSERIA GONORRHOEA PCR, CHLAMYDIA TRACHOMATIS PCR (V25.9) Contraception Comment: Plan: HCG qualitative urine, norethindrone-ethinyl estradiol-iron (MICROGESTIN FE1.5/30) 1.5-30 MG-MCG tablet Early sx may include nausea, vomiting, slight weight changes and breast tenderness. Serious sx to watch for include severe BOB, leg aching, SOB/CP. (626.4) Irregular menstrual cycle Comment: Plan: CBC with platelets (346.10) Migraine without aura, without mention of intractable migraine without mention of status migrainosus Comment: Plan: SUMAtriptan (IMITREX) 100 MG tablet Rtc if sxs change, worsen or fail to resolve with above tx. Patient will be needed PAP down the road but not yet. She has not had one in the past. She will schedule a follow up re: OCP's in the next 2-3 months, sooner prn. We can think about a PE also in the near future. Bernardo Avelar PA-C [facility] documented in this encounter Miscellaneous Notes Addendum Note - Lidia Clements MA - 03/27/2014 10:31 AM CDT Addended by: LIDIA CLEMENTS on: 03/27/2014 10:31 AM Modules accepted: Orders documented in this encounter Plan of Treatment Not on filedocumented as of this encounter Procedures Procedure Name Priority Date/Time Associated Diagnosis Comme nts CBC WITH PLATELETS Routine 03/12/2014 11:38 Irregular menstrua l Results for this AM CDT cycle procedure are i n the results section. HCG QUALITATIVE Routine 03/12/2014 11:37 Contraception Results for this URINE AM CDT procedure are i n the results section. NEISSERIA Routine 03/12/2014 11:36 Special screening Result s for this GONORRHOEAE PCR AM CDT examination for procedure are in unspecified the results chlamydial disease section. CHLAMYDIA Routine 03/12/2014 11:36 Special screening Result s for this TRACHOMATIS PCR AM CDT examination for procedure are in unspecified the results chlamydial disease section. documented in this encounter Results CBC with platelets (03/12/2014 11:38 AM CDT) P athologist Signature WBC 7.1 4.0 - 11.0 [facility] 10e9/L [facility] RBC Count 4.46 3.7 - 5.3 [facility] 10e12/L [facility] Hemoglobin 14.7 11.7 - [facility] 15.[facility] g/dL [facility] Hematocrit 41.7 35.0 - [facility] 47.0 % [facility] MCV 94 77 - 100 [place] [address] [facility] MCH 33.0 26.5 - [facility] 33.0 pg [facility] MCHC 35.3 31.5 - [facility] 36.5 g/dL [facility] RDW 11.8 10.0 - [facility] 15.0 % [facility] Platelet Count 290 150 - 450 [place] 10e9/L [facility] Specimen Anatomical Collection Method Collection Time Receive d Time (Source) Location / / Volume Laterality Blood specimen 03/12/2014 11:38 4 (specimen) AM CDT 11:39 AM CDT Bernardo Acosta PA-C LAB - BLOOD ORDERABLES Performing Organization Address [facility]/ZIP Code Phon e Number [facility] [place] [address] HCG qualitative urine (03/12/2014 11:37 AM CDT) Analysis Performed At Patho logist Time Signature HCG Qual Urine Negative NEG [facility] Specimen Anatomical Collection Method Collection Time Receive d Time (Source) Location / / Volume Laterality Urine specimen 03/12/2014 11:37 201 4 (specimen) AM CDT 11:38 AM CDT Bernardo Acosta PA-C LAB - URINE ORDERABLES Performing Organization Address [facility]/ZIP Code Phon e Number [facility] [place] [address] CHLAMYDIA TRACHOMATIS PCR (03/12/2014 11:36 AM CDT) Component Value Ref Test Analysis Performed At Patholo gist Range Method Time Signature Specimen Urine [facility] Chlamydia Negative NEG [facility] Trachomatis Negative for C. trachomatis rRNA by cyber security administrator mediated amplification. MICROBIOLOGY PCR A negative result by transc ription mediated amplification does not preclude the presence of C. trachomatis infection because re sults are dependent on proper and adequate collection, absence of inhibitors, and suffici ent rRNA to be detected. Specimen Anatomical Collection Method Collection Time Receive d Time (Source) Location / / Volume Laterality Urine specimen 03/12/2014 11:36 201 4 (specimen) AM CDT 11:37 AM CDT Bernardo Acosta PA-C LAB - MICRO GENERAL ORDERABL ES Performing Organization Address City/[facility]/ZIP Code Phon e Number [address] [address] [facility] [place] [address] [facility] MICROBIOLOGY NEISSERIA GONORRHOEA PCR (03/12/2014 11:36 AM CDT) Component Value Ref Test Analysis Performed At Patholo gist Range Method Time Signature Specimen Urine [facility] N Gonorrhea Negative NEG [facility] PCR Negative for N. gonorrhoeae rRNA by transcripti on mediated amplification. MICROBIOLOGY A negative result by transc ription mediated amplification does not preclude the presence of N. gonorrhoeae infection because re sults are dependent on proper and adequate collection, absence of inhibitors, and suffici ent rRNA to be detected. Specimen Anatomical Collection Method Collection Time Receive d Time (Source) Location / / Volume Laterality Urine specimen 03/12/2014 11:36 4 (specimen) AM CDT 11:37 AM CDT Bernardo Acosta PA-C LAB - MICRO GENERAL ORDERABL ES Performing Organization Address City/State/ZIP Code Phon e Number [id number] [place] [address] [facility] MICROBIOLOGY documented in this encounter Visit Diagnoses Diagnosis Special screening examination for unspec ified chlamydial disease - Primary Contraception Unspecified contraceptive management Irregular menstrual cycle Migraine without aura, without mention o f intractable migraine without mention of status migrainosus Migraine Migraine, unspecified, without mention o f intractable migraine without mention of status migrainosus documented in this encounter
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
--- OUTSIDE RECORDS SUMMARY | 2022-09-05 19:01 | XMS_ITS | Clinical Summary ---
:1995 Author Organization [facility] [place] [address] Care Team Providers Name Role Phone Clinic, No Pcp Or Primary Care Provider Unavailable Allergies Not on File Medications Medication Sig Dispensed Refills Start Date End Date Status Take 1 tablet 0 12/07/2014 Activ e vitamin-folic acid by mouth once 1 mg ( daily. VITAMIN) tablet/capsule ondansetron (ZOFRAN Place 1 10 Tablet 0 08/25/2022 Active ODT) 4 mg Tablet (4 mg) disintegrating on the tongue tabletIndications: every 8 hours Influenza-like if needed for symptoms Nausea/Vomiti ng. FLUoxetine (PROZAC) TAKE 1 0 04/09/2017 08/25/20 Discontinued 10 mg capsule CAPSULE BY 22 (*Pat ient states MOUTH DAILY no longe r FOR 14 DAYS, taking/ Not on THEN INCREASE sendin g facility TO 2 CAPSULES list) BY MOUTH DAILY trimethoprim-polymy Place 1 Drop 10 mL 0 05/07/2017 Discontinued alvarez b (POLYTRIM) into left eye 22 (*Patient states ophthalmic every 4 no longer solutionIndications hours. taking/Not on : Conjunctivitis of sending facility left eye, list) unspecified conjunctivitis type cephalexin (KEFLEX) Take 1 28 capsule 0 07/08/2018 08/25/20 Discontinued 500 mg capsule capsule by 22 (*Pa tient states mouth 4 times no xu jose daily for 7 taking/N ot on days. sending fa cility list) ibuprofen (ADVIL; Take 2 60 tablet 0 07/08/2018 08/25/20 D iscontinued MOTRIN) 200 mg tablets by 22 (*Pa tient states tablet mouth every 6 no xu jose hours if taking/Not on needed for sending f acility pain. list) acetaminophen Take 1 tablet 60 tablet 0 07/08/2018 08/25/20 D iscontinued (TYLENOL EXTRA by mouth 22 (*Pat ient states STRGTH) 500 mg every 6 hours n o longer tablet if needed for taking /Not on pain. sending fa cility list) oseltamivir Take 1 10 Capsule 0 08/25/2022 08/30/20 d (TAMIFLU) 75 mg Capsule (75 22 capsuleIndications: mg) by mouth Exposure to two times influenza daily for 5 days. For flu Active Problems Estimated Date of Delivery Comments Yes 10/05/2022 No known active problems Encounters Date Type Specialty Care Team Description 08/27/2022 Telephone Mary Foote PA Resu lts 08/25/2022 Office Visit Mary Foote PA Naus ea 08/25/2022 Travel from Last 3 Months Immunizations Name Administration Dates Next Due Tdap 04/12/2021 () Social History Tobacco Use Types Packs/Day Years Used Date Never Smoker Alcohol Use Standard Drinks/Week Comments Not Asked 0 (1 standard drink = 0.6 oz pure alcoho l) Estimated Date of Delivery Comments Yes 10/05/2022 Sex Assigned at Date Recorded Not on file COVID-19 Exposure Response Date Recorded In the last 10 days, have you been in contact with No / Unsu re 08/25/2022 4:13 PM MEDICAL REFERRAL COORDINATOR someone who was confirmed or suspected to have Coronavirus/COVID-19? Obstetrics History Para Term AB IAB SAB Ectopic Multiple Living Live Births 1 Date Outcome GA Total Labor/2nd/3rd Weight Sex Delivery Anes PTL Anamaria A 1 A5 Name Clin Labor Current Last Filed Vital Signs Vital Sign Reading Time Taken Comments Blood Pressure 107/68 08/25/2022 4:23 PM MEDICAL REFERRAL COORDINATOR Pulse 80 08/25/2022 4:23 PM MEDICAL REFERRAL COORDINATOR Temperature 36.6 ??C (97.8 ??F) 08/25/2022 4:23 PM MEDICAL REFERRAL COORDINATOR Respiratory Rate 22 04/12/2021 4:46 PM CDT Oxygen Saturation 98% 08/25/2022 4:23 PM MEDICAL REFERRAL COORDINATOR Inhaled Oxygen Concentration - - Weight 70.8 kg (156 lb) 08/25/2022 4:23 PM MEDICAL REFERRAL COORDINATOR Height 160 cm (5' 3) 08/25/2022 4:23 PM MEDICAL REFERRAL COORDINATOR Body Mass Index 27.63 08/25/2022 4:23 PM MEDICAL REFERRAL COORDINATOR Plan of Treatment Health Maintenance Due Date Last Done Comments HPV series for age 9-26 (1 - 2-dose 2007 series) Tdap 2007 Depression screening for age 12+ 2008 HIV for age 15-65 2011 Hepatitis C screening for age 18-79 2014 Tetanus booster 2016 Pap test for age 21-65 2017 09/09/2021 COVID-19 vaccine series (3 - Booster for 09/06/2021 021, 06/21/2021 Pfizer series) Influenza for age 9-49 06/11/2022 BMI (ht and wt on same day) for age 18+ 08/25/2023 08/25/20 22 Procedures Procedure Name Priority Date/Time Associated Diagnosis Comme nts INFLUENZA A/B PCR Routine 08/25/2022 4:45 PM Exposure to Resu lts for this MEDICAL REFERRAL COORDINATOR influenza procedure are in Influenza-like the results symptoms section. from Last 3 Months Results INFLUENZA A/B PCR (08/25/2022 4:45 PM MEDICAL REFERRAL COORDINATOR) Analysis Performed At Patho logist Time Signature INFLUENZA A Negative 08/27/2022 [facility] PCR 11:30 AM MEDICAL REFERRAL COORDINATOR [facility] INFLUENZA B Negative 08/27/2022 [facility] PCR 11:30 AM MEDICAL REFERRAL COORDINATOR [facility] Specimen Anatomical Location / Collection Method Collection Hernandez e Received Time (Source) Laterality / Volume Other NASOPHARYNGEAL SWAB / Non-Blood / 08/25/2022 4:45 4:54 Unknown Unknown PM MEDICAL REFERRAL COORDINATOR PM MEDICAL REFERRAL COORDINATOR Mary [facility] Performing Organization Address City/State/ZIP Code Phon e Number [facility] [address] [place] [address] LAB[facility]ATORY[facility] 2000 LABORATORY from Last 3 Months Insurance Payer Benefit Plan / Subscriber ID Effective Dates Phone Addre ss Type Group GO HUSSAIN JNSULEIMAN NIXON [id number] 2017-Present [address] [place] [address] [employer] HUSSA[employer] JNSULEIMAN NIXON [id number] 2021-Present [address] [place] [address] Joel Amos Personal/Famil Self 1995 [address] (Home) [place] [address] Care Teams Crisis Intervention Specialist Relationship Specialty Start Date End Date Clinic, No Pcp Or PCP - General 05/07/17 .
[2022-09-05 19:06] VITALS: BP 124/70; PULSE 86
[2022-09-05 21:21] VITALS: BP 122/72; PULSE 75
--- NOTE | 2022-09-06 01:20 | PC.OBNST ---
NST Note NST Note Start: 09/05/22 19:01 Freq: ONCE Status: Discharge Protocol: Document 09/06/22 00:34 EGFatuma (Rec: 09/06/22 01:19 EGM [id number]) NST Note 3 Para (# of births) 2 EDC 10/05/22 Gestational Age In Weeks & Days 35 Weeks & 6 Days Patient Presented with Complaint(s) of Observation after an injury If Observation after an injury, describe Patient fell at home, was tripped by dog, unsure how she landed If Pain, describe location none Other Complaints nonpainful contractions Reactive Yes Appropriate for Gestational Age Yes ERROL Conroy, RN Date 09/05/22 Reactive Yes Appropriate for Gestational Age Yes ERROL Han, RN Date 09/05/22 OB NST charge Yes Complete NST Note via Write Note Yes The provider's electronic signature indicates the NST is reactive/appropriate for gestational age. *Note to provider: If an addendum is required, open the patient's chart and click on the note under the Nurse/Allied Health tab.
== END 2022-09-05 21:27 | disposition home or self-care (01) ==
LOC: OB OUT 18:52 → OB 18:53
PROVIDERS: Visit Provider Advanced Practice Midwife
DX: O26.893 Other specified pregnancy related conditions, third trimester (principal); Z3A.36 36 weeks gestation of pregnancy; W01.0XXA Fall on same level from slipping, tripping and stumbling without subsequent striking against object, initial encounter; Y92.9 Unspecified place or not applicable
CPT/HCPCS: 59025; 99213

== ENCOUNTER 2022-09-07 11:55 | Outpatient (CLI) | payer MEDICAID, SELFPAY ==
--- OUTSIDE RECORDS SUMMARY | 2022-09-07 11:57 | XMS_ITS | Encounter Summary ---
:1995 Author Organization [place] Address [address] [place] [address] Care Team Providers Name Role Phone No Ref-Primary, Physician Primary Care Provider [phone] Viri Gallardo CHERRY GROWER GEM SETTER Unavailable [phone] Kenisha Garcia CHERRY GROWER GEM SETTER Unavailable [phone] Reason for Visit Diagnostic Imaging Ultrasound (Routine) - Pending Review Specialty Diagnoses / Procedures Referred By Contact Refer red To Contact Diagnoses related condition Maria Victoria Robles MD Procedures [facility] US Comprehensive Single [address] [place] [address] Referral ID Status Reason Start Date Expiration Date Visits V isits Requested Authorized [id number] Pending 06/04/2022 06/04/2023 1 1 Review Encounter Details Date Type Department Care Team Description 06/05/2022 Ancillary [facility] Maria Victoria Robles MD [address] [place], [place] [address] related Procedure Maternal Juan José Barrera MD [address] [place] [address] [facility] Medicine [address] [place] [address] Social History Tobacco Use Types [...] Procedure Name Priority Date/Time Associated Comments Diagnosis [facility] US COMPREHENSIVE Routine 06/05/2022 10:49 relate d Results for this SINGLE AM CDT condition procedure are i n the results section. documented in this encounter Results [facility] US Comprehensive Single (06/05/2022 10:49 AM CDT) [...] AMOS Study Date: 05/12 10:15am Pat. NO: [id number] Referring ??MD: LUCHO ROBLES Site: [place] [facility] Temperer: Ivonne oneal RDMS : 1995 Age: 27 [...] 1 lb 3 ?oz EFW by ?Hadlock ([id number]) Head / Face / Neck Biometry: Ware Cleaner ? 5.9 ? mm CM ?5.7 ? [...] cava. Inferior vena cava. 3-vessel ? view. 8-dnychp-ciirdre view. Cardiac position. Cardiac size. Cardiac rhythm. [...] Pat. Name:Lori AMOS Date: 10:15am Pat. NO: [id number] MD:MARIA VICTORIA MYLES [facility]Ivonne reynoso RDMS :1995Age:27 INDICATION Abnormal cranial anatomy [...] 1d Hadlock Humerus 36.0 mm 22w 4d [facility] Weight Calculation: EFW 529 g 50% Hadlock EFW (lb,oz) 1 lb 3 oz EFW by Hadlock ([id number]) Head / Face / Neck Biometry: Ware Cleaner 5.9 mm CM 5.7 mm Nasal bone [...] vena cava. Inferior vena cava. 3-vessel view. 6-pmkhkj-zugmnus view. Cardiac po sition. Cardiac size. Cardiac [...] appeared no rmal. Maria Victoria Robles MD [facility] US ORDERABLES documented in this encounter Visit Diagnoses Diagnosis related condition Unspecified complication of , u nspecified as to episode of care documented in this encounter Additional Health Concerns Assessment Noted Time PHQ-9 Depression Total Score: 15 09/16/2018 1:27 PM CS T documented as of this encounter Care Teams Dobby Looms Pegger Relationship Specialty Start Date End Date No Ref-Primary, Physician PCP - General 04/15/20 Viri Gallardo APRN GEM SETTER Nurse Practitioner 04/15/[address] [place] [address] [place] [id number] Kenisha Garcia APRN CNP Assigned PCP 04/25/[address] [place] [address] [place] [phone] documented as of this encounter
--- OUTSIDE RECORDS SUMMARY | 2022-09-07 11:57 | XMS_ITS | Encounter Summary ---
:1995 Author Organization [place] Address [address] [place] [address] Care Team Providers Name Role Phone No Ref-Primary, Physician Primary Care Provider [phone] Viri Gallardo CORRECTIONAL CAPTAIN COMPOSING ROOM MACHINIST Unavailable [phone] Kenisha Garcia CORRECTIONAL CAPTAIN COMPOSING ROOM MACHINIST Unavailable [phone] Encounter Details Date Type Department Care Team [...] documented as of this encounter Care Teams Discharge Specialist Relationship Specialty Start Date End Date No Ref-Primary, Physician PCP - General 04/15/20 Viri Gallardo APRN COMPOSING ROOM MACHINIST Nurse Practitioner 04/15/20 [address] [facility] [place] [id number] Kenisha Garcia APRN COMPOSING ROOM MACHINIST Assigned PCP 04/25/21 [address] [facility] [place] [address] documented as of this encounter
--- OUTSIDE RECORDS SUMMARY | 2022-09-07 11:57 | XMS_ITS | Encounter Summary ---
:1995 Author Organization [place] Address [address] [place] [address] Care Team Providers Name Role Phone No Ref-Primary, Physician Primary Care Provider [phone] Viri Gallardo ICE RESURFACING MACHINE OPERATORS PLANT MACHINIST Unavailable [phone] Kenisha Garcia ICE RESURFACING MACHINE OPERATORS PLANT MACHINIST Unavailable [phone] Reason for Visit Reason Comments Anxiety Encounter Details Date Type Department Care Team Description 04/27/2021 Emergency [facility] Zeeshan Mcintosh; [facility] MD Lui Methamphetamine use (H) Dept [facility] [address] [place], [place] [address] [facility] [address] [place] [address] (Wo rk) Social History Tobacco Use Types [...] be sent through Care Everywhere. Dehydration (Adult) ([place] Islander)documented in this encounter Medications at Time of [...] started having anxiety. She reports walking from [place] to [place] for 3 hours. She has a history [...] Address City/State/ZIP Code [place] [address] Care Lab [address] Lab (1st floor, no room number) [...] RH LABORATORY mg/dL 8:29 PM CDT Specific [place] 1.015 1.003 - 04/27/2021 RH LABORATOR Y [...] Address City/State/ZIP Code [place] [phone] Care Lab [address] Lab (1st floor, no room number) (ABNORMAL) CBC with platelets and differential (04/27/2021 4:27 PM CDT) [facility] Method Time Signature WBC Count 21.9 [...] LAB - BLOOD ORDERABLES Performing Organization Address City/[facility]/ZIP Code [place] [address] Care Lab [address] Lab (1st floor, no room number) [...] LAB - BLOOD ORDERABLES Performing Organization Address City/[facility]/ZIP Code [place] [address] Care Lab [address] Lab (1st floor, no room number) [...] Address City/State/ZIP Code [place] [address] Care Lab [address] Lab (1st floor, no room number) [...] as of this encounter Care Teams Career Law Clerk Relationship Specialty Start Date End Date No Ref-Primary, Physician PCP - General 04/15/20 Viri Gallardo APRN PLANT MACHINIST Nurse Practitioner 04/15/20 [address] [facility] [place] [phone] Kenisha Garcia APRN PLANT MACHINIST Assigned PCP 04/25/21 [address] [facility] [place] [id number] documented as of this encounter
--- OUTSIDE RECORDS SUMMARY | 2022-09-07 11:57 | XMS_ITS | Encounter Summary ---
:1995 Author Organization [place] Address [address] [place] [address] Care Team Providers Name Role Phone No Ref-Primary, Physician Primary Care Provider [phone] Viri Gallardo PRODUCTION CONTROL SPECIALIST COTTON HEADER Unavailable [phone] Kenisha Garcia PRODUCTION CONTROL SPECIALIST COTTON HEADER Unavailable [phone] Reason for Visit Reason Comments Vaginal Bleeding Encounter Details Date Type Department Care Team Description 03/31/2022 Emergency [facility] Collins Ramos Vaginal bl eeding in ; [facility] Emergency JAGDISH Rivas Subchorionic hematoma in first trimester Dept [facility] [address] [place], [place] [address] [employer] [address] [address] [place] [address] [place], [place] [address] (Wo rk) Social History Tobacco Use Types [...] your vagina. Follow-up as directed with your TRUCK RAILROAD AND BUS MOTOR MECHANIC provider. Facts about miscarriage: We hope you [...] and thigh 01/16/2015 Priority: Medium ??? Health Custodial 09/04/2014 Priority: Medium No active Care Coordination at this time. EMERGENCY CARE PLAN Presenting Problem Signs and Symptoms Treatment Plan Questions or concerns during clinic hours I will call the clinic directly Questions or concerns outside clinic hours I will call the 24 hour nurse line at [phone] Patient needs to schedule an appointment I will call the 24 hour scheduling team at [phone] orclinic directly Same day treatment I will [...] POS Antibody Screen Negative SPECIMEN EXPIRATION DATE [id number] ABO/RH TYPE AND SCREEN Emergency Department Course: [...] avoiding heavy lifting physical activity will call TRUCK RAILROAD AND BUS MOTOR MECHANIC to discuss follow-up within the next several [...] PA-C IMG US ORDERABLES Extra Green Top (Kathryn Heparin) Tube (03/31/2022 9:23 AM CDT) athologist [...] Organization Address City/State/[place] [address] Care Lab [address] Lab (1st floor, no room number) (ABNORMAL) HCG QUANTitative (blood) (03/31/2022 9:23 AM CDT) [facility] Method Time Signature hCG Quantitative [...] LAB - BLOOD ORDERABLES Performing Organization Address City/[facility]/[place] [address] Care Lab [address] Lab (1st floor, no room number) Extra Red Top Tube (03/31/2022 9:20 AM CDT) athologist Signature Hold Specimen [facility] 03/31/2022 RH LABORATORY 10:34 AM CDT Specimen Anatomical Collection Method / Collection Time Recei dariel Time (Source) Location / Volume Laterality Blood BLOOD SPECIMEN / Venipuncture / 03/31/2022 9:20 2021 9:29 Unknown Unknown AM CDT AM CDT Collins Ramos PA-C LAB - BLOOD ORDERABLES Performing Organization Address City/State/[place] [address] Care Lab [address] Lab (1st floor, no room number) [...] LAB - BLOOD ORDERABLES Performing Organization Address City/[facility]/ZIP Code Phon [place] [address] Care Lab [address] Lab (1st floor, no room number) Adult Type and Screen (03/31/2022 9:20 AM CDT) [facility] ABO/RH(D) A POS 03/31/2022 RH BLOOD 9:11 AM CDT BANK Antibody Negative Negative 03/31/2022 RH BLOOD Screen 9:11 AM CDT BANK SPECIMEN [id number] 03/31/2022 RH BLOOD EXPIRATION 9:11 AM CDT BANK DATE Specimen Anatomical Collection Method / Collection Time Recei dariel Time (Source) Location / Volume Laterality Blood BLOOD SPECIMEN / Venipuncture / 03/31/2022 9:20 2021 9:29 Unknown Unknown AM CDT AM CDT Collins Ramos PA-C LAB - BLOOD BANK TEST ORDER Performing Organization Address [facility] Phon e Number RH BLOOD BANK [address] [place] [address] (ABNORMAL) CBC with platelets and differential (03/31/2022 9:20 AM CDT) [facility] [employer] Method Time Signature WBC Count 13.6 (H) [...] City/State/ZIP Code Phon [place] [address] Care Lab [address] Lab (1st floor, no room number) documented in this encounter Visit Diagnoses Diagnosis Vaginal bleeding in Unspecified antepartum hemorrhage, unspe cified as to episode of care Subchorionic hematoma in first trimester documented in this encounter Additional Health Concerns Assessment Noted Time PHQ-9 Depression Total Score: 15 09/16/2018 1:27 PM CS T documented as of this encounter Care Teams Crozer Operator Relationship Specialty Start Date End Date No Ref-Primary, Physician PCP - General 04/15/20 Viri Gallardo APRN COTTON HEADER Nurse Practitioner 04/15/20 [address] [facility] [place] [id number] Kenisha Garcia APRN COTTON HEADER Assigned PCP 04/25/21 [address] [facility] [place] [phone] documented as of this encounter
--- OUTSIDE RECORDS SUMMARY | 2022-09-07 11:57 | XMS_ITS | Encounter Summary ---
:1995 Author Organization [place] Address [address] [place] [address] Care Team Providers Name Role Phone No Ref-Primary, Physician Primary Care Provider [phone] Viri Gallardo APRN COMMISSIONING AGENT Unavailable + Viri Gallardo APRN COMMISSIONING AGENT Unavailable + Encounter Details Date Type Department [...] documented as of this encounter Care Teams Layaway Clerk Relationship Specialty Start Date End Date No Ref-Primary, Physician PCP - General 04/15/20 Viri Gallardo APRN CNP Nurse Practitioner 04/15/20 [address] [facility] [place] [address] Viri Gallardo APRN COMMISSIONING AGENT Assigned PCP 08/18/20 04/24/21 [address] [facility] [place] [id number] documented as of this encounter
--- OUTSIDE RECORDS SUMMARY | 2022-09-07 11:57 | XMS_ITS | Encounter Summary ---
:1995 Author Organization [place] Address [address] [place] [address] Care Team Providers Name Role Phone No Ref-Primary, Physician Primary Care Provider [phone] Viri Gallardo PROCUREMENT COST COORDINATOR WAISTLINE JOINER OVERLOCK Unavailable [phone] Kenisha Garcia PROCUREMENT COST COORDINATOR WAISTLINE JOINER OVERLOCK Unavailable [phone] Reason for Visit Reason Comments Ultrasound L2 - right choroid plexus srinivasan s cribiform appearance (outside [place]), hx severe preeclampsia Genetic Counseling GC - right choroid plexus srinivasan s cribiform appearance (outside [place]), hx severe preeclampsia Encounter Details Date Type Department Care Team Description 06/04/2022 PRE VISIT [facility] Maternal Coreen Srivastava, ERROL Ultrasound (L2 - right Medicine Center choroi d plexus has [place] cribiform appearance [address] (outside [place]), hx severe [place] Professional preec lampsia); Genetic Building Counseling ([place] [address] choroid plexus has [phone] cribiform appea skinny (outside [place]), h x [...] documented as of this encounter Care Teams Day Spa Manager Relationship Specialty Start Date End Date No Ref-Primary, Physician PCP - General 04/15/20 Viri Gallardo APRN WAISTLINE JOINER OVERLOCK Nurse Practitioner 04/15/20 [address] [facility] [place] [id number] Kenisha Garcia APRN WAISTLINE JOINER OVERLOCK Assigned PCP 04/25/21 [address] [facility] [place] [address] documented as of this encounter
--- OUTSIDE RECORDS SUMMARY | 2022-09-07 11:57 | XMS_ITS | Encounter Summary ---
:1995 Author Organization [place] Address [address] [place] [address] Care Team Providers Name Role Phone No Ref-Primary, Physician Primary Care Provider [phone] Viri Gallardo APRN DISTRIBUTION CENTER ASSISTANT Unavailable [phone] Viri Gallardo APRN DISTRIBUTION CENTER ASSISTANT Unavailable [phone] Encounter Details Date Type Department Care Team Description 03/31/[address] [facility] Viri Gallardo Eagan APRN DISTRIBUTION CENTER ASSISTANT [address] [facility] [address] [facility] [address] [place] [address] [place] [address] [phone] Social History Tobacco Use Types Packs/Day Years [...] documented as of this encounter Care Teams Gear Technician Relationship Specialty Start Date End Date No Ref-Primary, Physician PCP - General 04/15/20 Viri Gallardo APRN DISTRIBUTION CENTER ASSISTANT Nurse Practitioner 04/15/[address] [place] [address] [place] [address] Viri Gallardo APRN DISTRIBUTION CENTER ASSISTANT Assigned PCP 08/18/20 04/24/21 [facility] [facility] [place] [address] documented as of this encounter
--- OUTSIDE RECORDS SUMMARY | 2022-09-07 11:57 | XMS_ITS | Encounter Summary ---
:1995 Author Organization [place] Address [address] [facility] [place] [address] Care Team Providers Name Role Phone No Ref-Primary, Physician Primary Care Provider [phone] Viri Gallardo CROP DUSTER HELPER LANDCARE FACILITATOR Unavailable [phone] Kenisha Garcia CROP DUSTER HELPER LANDCARE FACILITATOR Unavailable [phone] Reason for Visit Reason Comments Ultrasound L2- choroid plexus has cribi form appearance on outside ultrasound Encounter Details Date Type Department Care Team Description 06/05/2022 Office Visit [facility] Maria Victoria Robles MD [address] [place], [place] [address] Suspected Maternal Medicine Juan José Barrera MD [address] [place] [address] anomaly, antepartum, [facility] single or unspecified [address] [facility] [address] fetus (Primary Dx) [address] [place] [address] Social History Tobacco Use Types [...] documented as of this encounter Care Teams Pulp Screen Operator Relationship Specialty Start Date End Date No Ref-Primary, Physician PCP - General 04/15/20 Viri Gallardo APRN LANDCARE FACILITATOR Nurse Practitioner 04/15/[address] [facility] [place] [address] Kenisha Garcia APRN LANDCARE FACILITATOR Assigned PCP 04/25/[address] [facility] [place] [address] documented as of this encounter
--- OUTSIDE RECORDS SUMMARY | 2022-09-07 11:57 | XMS_ITS | Clinical Summary ---
:1995 Author Organization [place] Address [address] [place] [address] Care Team Providers Name Role Phone No Ref-Primary, Physician Primary Care Provider Viri Gallardo QC SCIENTIST MANAGING DIRECTOR ATLAS Unavailable [phone] Kenisha Garcia QC SCIENTIST MANAGING DIRECTOR ATLAS Unavailable [phone] Allergies Active Allergy Reactions Severity Noted Date [...] joint, pelvic region and thigh 01/16/2015 [facility] 09/04/2014 Overview: Formatting of this note is dif ferent from the original. No active Care Coordination at this time . EMERGENCY CARE PLAN Presenting Problem Signs and Symptoms Tr eatment Plan Questions or concerns during clinic baudilio rs I will call the clinic directly Questions or concerns outside clinic ho urs I will call the 24 hour nurse line at [phone] Patient needs to schedule an appointmen t I will call the 24 hour scheduling team at [phone] or clinic directly Same day treatment I [...] 08/20/2014 06/16/2016 Supervision of normal first 08/20/2014 Immunizations Name Administration Dates Next Due DTAP [...] patient 's age to complete this topic Insurance Payer Benefit Plan / Subscriber ID Effective Dates Phone Addre ss Type Group [facility] [id number] 2021-Present [phone] [address] [place] [address] Joel Amos Personal/Family Self 1995 [phone] (Home) [address] none (Work) [place] [id number] Joel Amos Behavioral Self 1995 [phone] ([address]) [address] none (Work) [place] [address] Advance Directives For more information, please contact: [phone] Latest Code Status on File Code Status Date Activated Date Inactivated Comments Full Code 02/20/2015 8:28 AM 01/27/2019 10:22 AM Care Teams 1St Grade Teacher Relationship Specialty Start Date End Date No Ref-Primary, Physician PCP - General 04/15/20 Viri Gallardo, DORIAN MANAGING DIRECTOR ATLAS Nurse Practitioner 04/15/20 [address] [facility] [place] [address] Kenisha Garcia APRN MANAGING DIRECTOR ATLAS Assigned PCP 04/25/21 [address] [facility] [place] [address]
--- OUTSIDE RECORDS SUMMARY | 2022-09-07 11:57 | XMS_ITS | Encounter Summary ---
:1995 Author Organization [place] Address [address] [place] [address] Care Team Providers Name Role Phone No Ref-Primary, Physician Primary Care Provider Viri Gallardo APRN FIRE MARSHAL REFINERY Unavailable [phone] Kenisha Garcia WIRELESS MANAGER FIRE MARSHAL REFINERY Unavailable [phone] Encounter Details Date Type Department Care Team [...] documented as of this encounter Care Teams Answering Service Agent Relationship Specialty Start Date End Date No Ref-Primary, Physician PCP - General 04/15/20 Viri Gallardo APRN FIRE MARSHAL REFINERY Nurse Practitioner 04/15/20 [address] [facility] [place] [id number] Kenisha Garcia APRN FIRE MARSHAL REFINERY Assigned PCP 04/25/21 [address] [facility] [place] [address] documented as of this encounter
--- OUTSIDE RECORDS SUMMARY | 2022-09-07 11:57 | XMS_ITS | Encounter Summary ---
:1995 Author Organization [place] Address [address] [place] [address] Care Team Providers Name Role Phone No Ref-Primary, Physician Primary Care Provider [phone] Viri Gallardo APRN KEYLINER Unavailable [phone] Viri Gallardo APRN KEYLINER Unavailable [phone] Reason for Visit Reason Comments Hematuria Encounter Details Date Type Department Care Team Description 04/16/2021 Emergency [facility] Karena Garcia Acute cys titis with hematuria; [facility] Emergency Dep t JAGDISH Hung Deliberate self-cutting [address] [facility] [place] [id number] [address] [phone] [facility] [address] [place], [place] [id number] (Wo rk) Social History Tobacco Use Types [...] the left upper extremity. She was evaluated [facility] for this a few days ago. She [...] Signature Hemoglobin 12.6 11.7 - 15.7 04/16/[address] [facility] g/dL 11:26 PM CDT HOSPITAL Specimen Anatomical Collection Method Collection Time Receive d Time (Source) Location / / Volume Laterality Blood 04/16/2021 11:18 04/16/2021 PM CDT 11:24 PM CDT Karena Garcia PA-C LAB - BLOOD ORDERABLES Performing Organization Address City/State/ZIP Code Phon e Number [facility] [address] [place], [place] [address] [facility] [address] [place], [place] [address] [facility] [phone] (ABNORMAL) UA with Microscopic (04/16/2021 10:27 PM T) [facility] Method Time Signature Color Urine Yellow 04/16/2021 [facility] 10:47 PM [facility] Appearance Urine Slightly 04/16/[address] [facility] Cloudy 10:47 PM [facility] Glucose Urine Negative NEG^Negat 04/16/2021 [facility] [place] mg/dL 10:47 PM [facility] Bilirubin Urine Negative NEG^Negat 04/16/2021 [facility] [place] 10:47 PM [facility] Ketones Urine Negative NEG^Negat 04/16/2021 [facility] [place] mg/dL 10:47 PM [facility] Specific [place] 1.020 1.003 - 04/16/2021 [facility] Urine 1.035 10:47 PM [facility] Blood Urine Large (A) NEG^Negat 04/16/2021 [facility] [place] 10:47 PM [facility] pH Urine 6.0 5.0 - 7.0 04/16/2021 [facility] pH 10:47 PM [facility] Protein Albumin 30 (A) NEG^Negat 04/16/2021 [facility] Urine [place] mg/dL 10:47 PM [facility] Urobilinogen Normal 0.0 - 2.0 04/16/2021 [facility] mg/dL mg/dL 10:47 PM [facility] Nitrite Urine Negative NEG^Negat 04/16/2021 [facility] [place] 10:47 PM [facility] Leukocyte Large (A) NEG^Negat 04/16/2021 [facility] Esterase Urine [place] 10:47 PM [facility] Source Midstream 04/16/2021 [facility] Urine 10:27 PM [facility] WBC Urine >182 (H) 0 - 5 04/16/2021 [facility] /HPF 10:47 PM [facility] RBC Urine >182 (H) 0 - 2 04/16/2021 [facility] /HPF 10:47 PM [facility] WBC Clumps Present (A) NEG^Negat 04/16/2021 [facility] [place] /HPF 10:47 PM [facility] Bacteria Urine Few (A) NEG^Negat 04/16/2021 [facility] [place] /HPF 10:47 PM [facility] Mucous Urine Present (A) NEG^Negat 04/16/2021 [facility] [place] /LPF 10:47 PM [facility] Specimen (Source) Anatomical Collection Method Collection Time Re ceived Time Location / / Volume Laterality Examination of 04/16/2021 10:27 midstream urine PM CDT 10:38 PM CDT specimen (procedure) Karena Garcia PA-C LAB - URINE ORDERABLES Performing Organization Address City/State/ZIP Code Phon e Number [place] [address] [address] [place] [address] [place] [address] [phone] documented in this encounter Visit Diagnoses Diagnosis [...] documented as of this encounter Care Teams Radio Television Technical Director Relationship Specialty Start Date End Date No Ref-Primary, Physician PCP - General 04/15/20 Viir Gallardo APRN KEYLINER Nurse Practitioner 04/15/20 [address] [facility] [place] [id number] Viri Gallardo APRN KEYLINER Assigned PCP 08/18/20 04/24/21 [address] [facility] [place] [id number] documented as of this encounter
--- OUTSIDE RECORDS SUMMARY | 2022-09-07 11:57 | XMS_ITS | Encounter Summary ---
:1995 Author Organization [place] Address [address] [place] [address] Care Team Providers Name Role Phone No Ref-Primary, Physician Primary Care Provider [phone] Viri Gallardo APRN RETAIL AND RESTAURANT Unavailable [phone] Viri Gallardo APRN RETAIL AND RESTAURANT Unavailable [phone] Reason for Visit Reason Comments Physical Encounter Details Date Type Department Care Team Description 04/10/2021 Office Visit [facility] Kenisha Garcia Encounter for preventative adult health care examination (Primary Dx); Clinic Jesu Sawyer APRN Borderline personality disor alex (H); [address] RETAIL AND RESTAURANT Substance abuse (H); [address] [facility] Tobacco abuse; [address] [facility] Migraine without aura and without status migrainosus, not intractable; [place] [address] [place] [address] control counseling [phone] Social History Tobacco Use Types Packs/Day Years [...] night on average. Follows with psychiatry at [facility] Recently clarified diagnosis of borderline personality disorder Questions allergy to dairy and gluten Generally avoids these foods, otherwise has bloating, constipation Doing PT for back and R knee at [place]. See CareEverywhere. Pt interested in COVID antibody [...] work is in process Labs reviewed in [facility] BP Readings from Last 3 Encounters: 04/10/21 96/52 03/03/21 129/67 01/09/21 104/66 Wt Readings from Last 3 Encounters: 04/10/21 50.6 kg (111 lb 9.6 oz) 03/03/21 52.2 kg (115 lb) 01/09/21 52.8 kg (116 lb 6.4 oz) Patient Active Problem List Diagnosis ??? Migraine ??? Health Long Term ??? Pain in joint, pelvic region and [...] Lung CA Screening Kenisha Garcia APRN CNP [facility] documented in this encounter Plan of Treatment [...] documented as of this encounter Care Teams Junior Net Developer Relationship Specialty Start Date End Date No Ref-Primary, Physician PCP - General 04/15/20 Viri Gallardo APRN CNP Nurse Practitioner 04/15/20 [address] [facility] [place] [address] Viri Gallardo APRN RETAIL AND RESTAURANT Assigned PCP 08/18/20 04/24/21 [address] [facility] [place] [address] documented as of this encounter
--- OUTSIDE RECORDS SUMMARY | 2022-09-07 11:57 | XMS_ITS | Encounter Summary ---
:1995 Author Organization [place] Address [address] [place] [address] Care Team Providers Name Role Phone No Ref-Primary, Physician Primary Care Provider [phone] Viri Gallardo APRN RAILROAD TRACK MECHANIC Unavailable + Viri Gallardo APRN RAILROAD TRACK MECHANIC Unavailable + Encounter Details Date Type Department [...] documented as of this encounter Care Teams Territory Development Manager Relationship Specialty Start Date End Date No Ref-Primary, Physician PCP - General 04/15/20 Viri Gallardo APRN CNP Nurse Practitioner 04/15/20 [address] [facility] [place] [address] Viri Gallardo APRN RAILROAD TRACK MECHANIC Assigned PCP 08/18/20 04/24/21 [address] [facility] [place] [address] documented as of this encounter
--- OUTSIDE RECORDS SUMMARY | 2022-09-07 11:57 | XMS_ITS | Encounter Summary ---
:1995 Author Organization [place] Address [address] [place] [address] Care Team Providers Name Role Phone No Ref-Primary, Physician Primary Care Provider [phone] Viri Gallardo SHEET METAL WELDER AQUATIC BIOLOGIST Unavailable [phone] Kenisha Garcia SHEET METAL WELDER AQUATIC BIOLOGIST Unavailable [phone] Reason for Referral Diagnostic Imaging Ultrasound (Routine) - Pending Review Specialty Diagnoses / Procedures Referred By Contact Refer red To Contact Diagnoses related condition Maria Victoria Robles MD Procedures [facility] [address] [place] [address] [place] [address] Referral ID Status Reason Start Date Expiration Date Visits V isits Requested Authorized [id number] Pending 06/04/2022 06/04/2023 1 1 Review onsultation (Routine: Next available opening) - Pending Review Specialty Diagnoses / Procedures Referred By Contact Refer red To Contact Diagnoses related condition Maria Victoria Robles MD [facility] [address] [place] [address] [place] [address] [address] [place] [address] [place] [address] Referral ID Status Reason Start Date Expiration Date Visits V isits Requested Authorized [id number] Pending 06/04/2022 06/04/2023 1 1 Review Encounter Details Date Type Department Care Team Description 06/04/2022 Transcribe Orders [facility] Travis, Maria Victoria Dacosta, Pre gnancy related Maternal MD condition (Primary Medicine Center [address] Dx) Denise Lockett [address] [facility] [place] [address] [place] [address] [address] (Work) [place] [address] Social [...] AMOS Study Date: 05/12 10:15am Pat. NO: [id number] Referring ??MD: LUCHO ROBLES Site: [place] Emissions Repair Technician: Ivonne oneal RDMS : 1995 Age: 27 [...] 1 lb 3 ?oz EFW by ?Hadlock (TET-UC-FY-FL) Head / Face / Neck Biometry: Trestle Mechanic ? 5.9 ? mm CM ?5.7 ? [...] cava. Inferior vena cava. 3-vessel ? view. 0-rqakiu-upwpydh view. Cardiac position. Cardiac size. Cardiac rhythm. [...] Pat. Name:Lori AMOS Date: 10:15am Pat. NO: [id number] :MARIA VICTORIA MYLES [facility]Ivonne reynoso RDMS :1995Age:27 INDICATION Abnormal [...] 1 lb 3 oz EFW by Hadlock (YWC-AM-BC-FL) Head / Face / Neck Biometry: Trestle Mechanic 5.9 mm CM 5.7 mm Nasal bone [...] vena cava. Inferior vena cava. 3-vessel view. 4-kujogo-pzvxnxt view. Cardiac po sition. Cardiac size. Cardiac [...] appeared no rmal. Maria Victoria Robles MD [facility] US ORDERABLES documented in this encounter [...] documented as of this encounter Care Teams Refrigerating Technician Relationship Specialty Start Date End Date No Ref-Primary, Physician PCP - General 04/15/20 Viri Gallardo APRN AQUATIC BIOLOGIST Nurse Practitioner 04/15/20 [address] [facility] [address] [place], [place] [address] Kenisha Garcia APRN AQUATIC BIOLOGIST Assigned PCP 04/25/21 [address] [facility] [place] [address] documented as of this encounter
--- OUTSIDE RECORDS SUMMARY | 2022-09-07 11:57 | XMS_ITS | Encounter Summary ---
:1995 Author Organization [place] Address [address] [place] [address] Care Team Providers Name Role Phone No Ref-Primary, Physician Primary Care Provider Viri Gallardo AUTOMATION ANALYST STABILIZING MACHINE OPERATOR Unavailable [phone] Kenisha Garcia AUTOMATION ANALYST STABILIZING MACHINE OPERATOR Unavailable [phone] Encounter Details Date Type Department Care Team [...] documented as of this encounter Care Teams Mold Stacker Relationship Specialty Start Date End Date No Ref-Primary, Physician PCP - General 04/15/20 Viri Gallardo APRN STABILIZING MACHINE OPERATOR Nurse Practitioner 04/15/20 [address] [facility] [place] [phone] Kenisha Garcia APRN STABILIZING MACHINE OPERATOR Assigned PCP 04/25/21 [address] [facility] [place] [address] documented as of this encounter
--- OUTSIDE RECORDS SUMMARY | 2022-09-07 11:58 | XMS_ITS | Encounter Summary ---
:1995 Author Organization [place] Address [address] [place] [address] Care Team Providers Name Role Phone Viri Gallardo APRN, CNP Primary Care Provider [phone] Viri Gallardo APRN MANAGER WELLNESS Unavailable [phone] Reason for Visit Reason Comments Urgent Care Groin Pain Pt is concerned that she has some groing pain bilaterally since yesterday. She has not had a fever. Encounter Details Date Type Department Care Team Description 06/03/2019 Office Visit [facility] Sonya Josse BV (bact erial vaginosis) (Primary Dx); Urgent Care Jesu Urbano PA-C [facility] [address] [place] [address] [place] [address] [place] [address] Social History Tobacco Use Types Packs/Day [...] a specialist in blood disorders and cancer (account manager b2b and oncologist). Treatment for lymphadenopathy The treatment [...] healthcare provider. Date Last Reviewed: 02/08/2017 ?? [phone] The [employer]. [address] [place] [address], [place] [address]. All rights reserved. This information is not [...] 06/03/19 *UA reflex to Microscopic and Culture ([facility] (except [place] and [place]) Result Value Ref Range Color Urine Yellow Appearance Urine Slightly Cloudy Glucose Urine Negative NEG^Negative mg/dL Bilirubin Urine Negative NEG^Negative Ketones Urine Negative NEG^Negative mg/dL Specific [place] Urine 1.010 1.003 - 1.035 Blood Urine [...] Plan: *UA reflex to Microscopic and Culture ([facility] (except [place] and [place]), Wet prep, WBC count Patient [...] a specialist in blood disorders and cancer (account manager b2b and oncologist). Treatment for lymphadenopathy The treatment [...] healthcare provider. Date Last Reviewed: 02/08/2017 ?? [phone] The [employer]. [address] [place] [address]. All rights reserved. This information is not [...] CDT CLINICS [place] Squamous Few FEW^Few 06/03/2019 [facility] Epithelial /LPF /LPF 12:36 PM CDT CLINICS [facility] Urine Bacteria Urine Few (A) NEG^Negati 06/03/2019 [facility] ve /HPF 12:36 PM CDT [facility] [place] Specimen Anatomical Collection Method Collection Time Receive d Time (Source) Location / / Volume Laterality 06/03/2019 12:00 06/03/2019 PM CDT 12:01 PM CDT [place] Hassan PA-C LAB - URINE ORDERABLES Performing Organization Address [facility]/ZIP Code Phon e Number [facility] [address] [place] [address] [phone] (ABNORMAL) Wet prep (06/03/2019 12:00 PM CDT) Patholo gist Method Time Signature Specimen Vagina [facility] Description [facility]IN[facility] [place] Wet Prep No Trichomonas 06/03/2019 [facility] seen 12:27 PM CLINICS CDT [place] Wet Prep Many 06/03/2019 [facility] Clue cells seen 12:27 PM CLINICS (A) CDT [place] Wet Prep No yeast seen 06/03/2019 [facility] 12:27 PM CLINICS CDT [place] Wet Prep Moderate 06/03/2019 [facility] WBC'S seen 12:27 PM CLINICS CDT [place] Specimen Anatomical Collection Method Collection Time Receive d Time (Source) Location / / Volume Laterality Specimen from 06/03/2019 12:00 06/03/2019 vagina PM CDT 12:01 PM CDT (specimen) Josse Hassan PA-C LAB - MICRO GENERAL ORDE RABLES Performing Organization Address [facility]/ZIP Code Phon e Number [facility] [address] [place] [address] [phone] (ABNORMAL) *UA reflex to Microscopic and Culture ([facility] [facility] (06/03/2019 12:00 PM CDT) Patholo gist Method Time Signature Color Urine Yellow 06/03/2019 [facility] 12:36 PM CLINICS CDT [place] Appearance Urine Slightly 06/03/2019 [facility] Cloudy 12:36 PM CLINICS CDT [place] Glucose Urine Negative NEG^Negat 06/03/2019 [facility] [place] mg/dL 12:36 PM CLINICS CDT [place] Bilirubin Urine Negative NEG^Negat 06/03/2019 [facility] 12:36 PM CLINICS CDT [place] Ketones Urine Negative NEG^Negat 06/03/2019 [facility] [place] mg/dL 12:36 PM CLINICS CDT [place] Specific [place] 1.010 1.003 - 06/03/2019 [facility] Urine 1.035 12:36 PM CLINICS CDT [place] Blood Urine Negative NEG^Negat 06/03/2019 [place] 12:36 PM [facility] CDT [place] pH Urine 7.0 5.0 - 7.0 06/03/2019 [place] pH 12:36 PM [facility] CDT [place] Protein Albumin Negative NEG^Negat 06/03/2019 [facility] U[place] mg/dL 12:36 PM CLINICS CDT [place] Urobilinogen 0.2 0.2 - 1.0 06/03/2019 [facility] Urine EU/dL 12:36 PM [facility] CDT [place] Nitrite Urine Negative NEG^Negat 06/03/2019 [place] 12:36 PM [facility] CDT [place] Leukocyte Trace (A) NEG^Negat 06/03/2019 [place] Esterase Urine [place]rera 12:36 PM [facility] CDT [place] Source Midstream 06/03/2019 [facility] Urine 12:02 PM [facility] CDT [place] Specimen (Source) Anatomical Collection Method Collection Time Re ceived Time Location / / Volume Laterality Examination of 06/03/2019 12:00 9 midstream urine PM CDT 12:01 PM CDT specimen (procedure) Josse Hassan PA-C LAB - URINE ORDERABLES Performing Organization Address City/[facility]/ZIP Code Phon e Number [facility] [address] [place] [address] [phone] WBC count (06/03/2019 11:55 AM CDT) P athologist Signature WBC 6.2 4.0 - 11.0 06/03/2019 [place] 10e9/L 12:28 PM CDT [facility]INICS [place] Specimen Anatomical Collection Method Collection Time Receive d Time (Source) Location / / Volume Laterality Blood specimen 06/03/2019 11:55 9 (specimen) AM CDT 11:56 AM CDT Josse Hassan PA-C LAB - BLOOD ORDERABLES Performing Organization Address City/[facility]/ZIP Code Phon e Number [facility] [address] [place] [phone] documented in this encounter Visit Diagnoses Diagnosis BV (bacterial vaginosis) - Primary Vaginitis and vulvovaginitis, unspecifie d Lymphadenopathy Enlargement of lymph nodes documented in this encounter Additional Health Concerns Assessment Noted Time PHQ-9 Depression Total Score: 15 09/16/2018 1:27 PM CS T documented as of this encounter Care Teams Quarry Boss Relationship Specialty Start Date End Date Viri Gallardo APRN MANAGER WELLNESS PCP - General Nurse Practitioner 06/29/17 04/14/20 [address] [facility] [place] [address] Viri Gallardo APRN MANAGER WELLNESS Assigned PCP 09/12/17 09/16/[address] [place] [address] [place] [address] documented as of this encounter
--- OUTSIDE RECORDS SUMMARY | 2022-09-07 11:58 | XMS_ITS | Encounter Summary ---
:1995 Author Organization [place] Address [address] [facility] [place] [address] Care Team Providers Name Role Phone Viri Gallardo APRN, CNP Primary Care Provider [phone] Viri Gallardo APRN INSPECTOR OF DREDGING Unavailable [phone] Reason for Visit Reason Comments Urgent Care Neck Pain Severe neck pain since last night, feels slightly swelled and feels numb 7/10. No known injury. tx: I BU, ice, Tylenol, heating pack Encounter Details Date Type Department Care Team Description 05/25/2019 Office Visit [facility] Joel Keller Strain o f left Urgent Care Jesu Lima PA-C trapezius muscle, [address] [place] [address] initial encounter [place], [place] (Primary Dx) [address] [address] [place] [address] Social History Tobacco Use Types Packs/Day [...] ice and heat. ?? You may use lehb-evl-zrkamzt pain medicine to control pain, unless another [...] change positions Date Last Reviewed: 02/08/2018 ?? [phone] [employer]. [address] [place] [address]. All rights reserved. This information is not [...] turning sie to side. UE bicep and guest services agent strength is good and equal bilaterally. UE sensation intact to light touch, along multiple dermatomal distributions and into all distal fingertips bilaterally. NEURO: Alert and oriented. Normal speech and mentation. CN II/XII grossly intact. Gait within normallimits. ? ASSESSMENT/PLAN: ?? (X69.108K) Strain of left trapezius muscle, initial encounter [...] documented as of this encounter Care Teams Oncology Account Specialist Relationship Specialty Start Date End Date Viri Gallardo APRN INSPECTOR OF DREDGING PCP - General Nurse Practitioner 06/29/17 04/14/[address] [facility] [address] [place], [place] [address] Viri Gallardo APRN INSPECTOR OF DREDGING Assigned PCP 09/12/17 09/16/[address] [place] [address] documented as of this encounter
--- OUTSIDE RECORDS SUMMARY | 2022-09-07 11:58 | XMS_ITS | Encounter Summary ---
:1995 Author Organization [place] Address [address] [place] [address] Care Team Providers Name Role Phone No Ref-Primary, Physician Primary Care Provider [phone] Viri Gallardo APRN WELL LOGGER Unavailable [phone] Viri Gallardo APRN WELL LOGGER Unavailable [phone] Reason for Visit Reason Comments Nausea Vomiting Encounter Details Date Type Department Care Team Description 01/09/2021 Office Visit [facility] Alexandria Pope M, Nause a and vomiting, intractability of vomiting not specified, unspecified vomiting type (Primary Dx); Clinic Jesu PHERESIS SPECIALIST Constipation, unspecified constipation t ype; [address] [facility] [place] sophageal reflux disease without esophagitis [facility] [address] [place] [address] [place] [phone] [address] (Work) [phone] Social History Tobacco Use Types Packs/Day Years [...] back, neck, shoulder, or arm ?? An mucq-psq-suhwajp trial of medicine doesn't relieve your symptoms [...] reviewed this educational content on 12/09/2017 ?? [phone] [facility]. All rights reserved. This information is not [...] the above symptoms. - HCG Qual, Urine ([id number]) Constipation, unspecified constipation type Chronic problem, currently [...] back, neck, shoulder, or arm ?? An yyps-dcz-knelkek trial of medicine doesn't relieve your symptoms ?? Weight loss that can't be explained ?? Trouble or pain swallowing ?? Frequent vomiting (can???t keep down liquids) ?? Blood in the stool or vomit (red or black in color) ?? Feeling weak or dizzy ?? Fever of 100.4??F (38??C) or higher, or as directed by your healthcare provider [employer] last reviewed this educational content on 12/09/2017 ?? [id number] [facility]. All rights reserved. This information is not intended as a substitute for professional medical care. Always follow your healthcare professional's instructions. Return in about 2 months (around 03/11/2021), or if symptoms worsen or fail to improve. Alexandria Pope NP [facility] JESU Maldonado is a 25 year old who presents for the following health issues HPI Concern - Nausea/Vomiting Onset: x 4 days Description: Pt reports first occurred after eating food, had acid reflux afterwards. Pt stated she had recently eaten ranch and citizen of [place] dressing. Intensity: severe when it occurs Progression [...] in this encounter Results HCG Qual, Urine ([id number]) (01/09/2021 3:12 PM CDT) athologist Signature HCG Qual Urine Negative NEG^Negati 01/09/2021 [facility] 3:26 PM CDT [facility] JESU Comment: This test is for screening purposes. ??R esults should be interpreted along with the clinical picture. ??Confirmation te sting is available if warranted by ordering [id number], HCG Quantitative Pregna ncy. Specimen Anatomical Collection Method Collection Time Receive d Time (Source) Location / / Volume Laterality Urine 01/09/2021 3:12 PM 3:13 CDT PM CDT Alexandria Pope NP LAB - URINE ORDERABLES Performing Organization Address City/State/ZIP Code Phon e Number [facility] JESU [address] [place] [address] documented in this encounter Visit Diagnoses Diagnosis Nausea and vomiting, intractability of v omiting not specified, unspecified vomiting type - Primary Constipation, unspecified constipation t ype Gastroesophageal reflux disease without esophagitis Esophageal reflux documented in this encounter Additional Health Concerns Assessment Noted Time PHQ-9 Depression Total Score: 15 09/16/2018 1:27 PM CS T documented as of this encounter Care Teams Pull Socket Assembler Relationship Specialty Start Date End Date No Ref-Primary, Physician PCP - General 04/15/20 Viri Gallardo APRN WELL LOGGER Nurse Practitioner 04/15/20 [address] [facility] [place] [id number] Viri Gallardo APRN WELL LOGGER Assigned PCP 08/18/20 04/24/21 [address] [facility] [place] [phone] documented as of this encounter
--- OUTSIDE RECORDS SUMMARY | 2022-09-07 11:58 | XMS_ITS | Encounter Summary ---
:1995 Author Organization [place] Address [address] [place] [address] Care Team Providers Name Role Phone Viri Gallardo APRN, CNP Primary Care Provider Viri Gallardo APRN, CNP Unavailable [phone] Encounter Details Date Type Department Care Team [...] documented as of this encounter Care Teams Pipe Coverer Relationship Specialty Start Date End Date Viri Gallardo APRN CNP PCP - General Nurse Practitioner 06/29/17 04/14/20 [address] [facility] [place] [address] Viri Gallardo APRN CNP Assigned PCP 09/12/17 09/16/19 [address] [facility] [place] [place] [address] documented as of this encounter
--- OUTSIDE RECORDS SUMMARY | 2022-09-07 11:58 | XMS_ITS | Encounter Summary ---
:1995 Author Organization [place] Address [address] [place] [address] Care Team Providers Name Role Phone Viri Gallardo APRN, CNP Primary Care Provider [phone] Viri Gallardo APRN, CNP Unavailable [phone] Encounter Details Date Type Department Care Team [...] documented as of this encounter Care Teams Maintenance Truck Driver Relationship Specialty Start Date End Date Viri Gallardo APRN CNP PCP - General Nurse Practitioner 06/29/17 04/14/20 [address] [facility] [place] [address] Viri Gallardo APRN CNP Assigned PCP 09/12/17 09/16/[address] [facility] [place] [address] documented as of this encounter
--- OUTSIDE RECORDS SUMMARY | 2022-09-07 11:58 | XMS_ITS | Encounter Summary ---
:1995 Author Organization [place] Address [address] [place] [address] Care Team Providers Name Role Phone Viri Gallardo APRN, CNP Primary Care Provider [phone] Viri Gallardo APRN, CNP Unavailable [phone] Encounter Details Date Type Department Care Team [...] documented as of this encounter Care Teams Lace Roller Relationship Specialty Start Date End Date Viri Gallardo APRN CNP PCP - General Nurse Practitioner 06/29/17 04/14/20 [address] [facility] [place] [address] Viri Gallardo APRN CNP Assigned PCP 09/12/17 09/16/19 [address] [facility] [place] [address] documented as of this encounter
--- OUTSIDE RECORDS SUMMARY | 2022-09-07 11:58 | XMS_ITS | Encounter Summary ---
:1995 Author Organization [place] Address [address] [place] [address] Care Team Providers Name Role Phone Viri Gallardo APRN, CNP Primary Care Provider [phone] Viri Gallardo APRN CONSTRUCTION DRIVER Unavailable [phone] Reason for Visit Reason Comments RECHECK Encounter Details Date Type Department Care Team Description 07/21/[address] [facility] Travis Hagan MD Dysuria (Primary Dx); Clinic [address] History of HPV infection; [address] [facility] Bacterial vaginosis [facility] [place] [address] [address] [place] [address] (Work) [phone] Social History Tobacco Use Types Packs/Day Years [...] 07/21/19 *UA reflex to Microscopic and Culture ([place] and [facility] (except [facility]) Result Value Ref Range Color Urine Yellow Appearance Urine Clear Glucose Urine Negative NEG^Negative mg/dL Bilirubin Urine Negative NEG^Negative Ketones Urine Negative NEG^Negative mg/dL Specific [place] Urine 1.015 1.003 - 1.035 Blood Urine [...] prep *UA reflex to Microscopic and Culture ([place] and [facility] (except [facility]) Urine Microscopic NEISSERIA GONORRHOEA PCR CHLAMYDIA TRACHOMATIS PCR 2. 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 Bacterial vaginosis N76.0 clindamycin (CLEOCIN) 300 MG capsule B96.89 Persistent sx of dysuria with persistent clue cells on wet prep. Discussed possible dx and treatment options. Will change to clindamycin, pt prefers po route. If sx do not improve, plan bullet casting operator referral. Nodule is likely a LN but cannot r/o cyst. Pap done today as well. Travis Hagan MD [facility] documented in this encounter Plan of [...] gist Method Time Signature Specimen Cervix 07/21/2019 [place] Description 10:53 AM CDT [facility] Chlamydia Negative NEG^Negat 07/23/2019 INFECTIOUS Trachomatis PCR herrera 2:00 PM CDT [facility] Comment: Negative for C. trachomatis rRNA by hernandez scription mediated amplification. A negative result by food handler media lainey amplification does not preclude the [...] Code Phon e Number INFECTIOUS DISEASES [address] [place] [address] DIAGNOSTIC LABORATORY, [facility] [address] [place] [address] INFECTIOUS DISEASES [address] [place] [address], A DIAGNOSTIC LABORATORY NEISSERIA GONORRHOEA PCR (07/21/2019 10:52 AM CDT) Analysis Performed At Patho logist Time Signature Specimen Cervix 07/21/2019 [facility] 10:53 AM CDT [facility] N Gonorrhea Negative NEG^Negati 07/23/2019 INFECTIOUS PCR ve 2:00 PM CDT [facility] Comment: Negative for N. gonorrhoeae rRNA by hernandez scription mediated amplification. A negative result by food handler media lainey amplification does not preclude the [...] Performing Organization Address City/[facility] Phon e Number INFECTIOUS DISEASES [address] [place] [address] DIAGNOSTIC LABORATORY, [address] [address] [phone] INFECTIOUS DISEASES [address] [place] [address], A DIAGNOSTIC LABORATORY (ABNORMAL) Urine Microscopic (07/21/2019 8:37 AM CDT) [facility] [place] Method Time Signature WBC Urine 0 - 5 OTO5^0 - 07/21/2019 [facility] 5 /HPF 8:50 AM CDT [facility] RBC Urine O - 2 OTO2^O - 07/21/2019 [facility] 2 /HPF 8:50 AM CDT [facility] Squamous Moderate (A) FEW^Few 07/21/2019 [place] Epithelial /LPF 8:50 AM CDT [facility] /LPF Urine Bacteria Urine Few (A) NEG^Negat 07/21/2019 [place] herrera /HPF 8:50 AM CDT [facility] Specimen Anatomical Collection Method Collection Time Receive d Time (Source) Location / / Volume Laterality 07/21/2019 8:37 AM 9 8:38 CDT AM CDT Travis Hagan MD LAB - URINE ORDERABLES Performing Organization Address City/[facility] Phon e Number [address] [address] [phone] (ABNORMAL) *UA reflex to Microscopic and Culture ([place] [facility] [place] [facility] [place] [facility] (07/21/2019 8:37 AM CDT) Patholo gist Method Time Signature Color Urine Yellow 07/21/2019 [place] 8:50 AM CDT [facility] Appearance Urine Clear 07/21/2019 [place] 8:50 AM CDT [facility] Glucose Urine Negative NEG^Negat 07/21/2019 [place] herrera mg/dL 8:50 AM CDT [facility] Bilirubin Urine Negative NEG^Negat 07/21/2019 [place] herrera 8:50 AM CDT [facility] Ketones Urine Negative NEG^Negat 07/21/2019 [place] herrera mg/dL 8:50 AM CDT [facility] Specific [place] 1.015 1.003 - 07/21/2019 [place] Urine 1.035 8:50 AM CDT [facility] Blood Urine Trace (A) NEG^Negat 07/21/2019 [place] herrera 8:50 AM CDT [facility] pH Urine 5.5 5.0 - 7.0 07/21/2019 [place] pH 8:50 AM CDT [facility] Protein Albumin Negative NEG^Negat 07/21/2019 [place] Urine herrera mg/dL 8:50 AM CDT [facility] Urobilinogen 0.2 0.2 - 1.0 07/21/2019 [place] Urine EU/dL 8:50 AM CDT [facility] Nitrite Urine Negative NEG^Negat 07/21/2019 [place] herrera 8:50 AM CDT [facility] Leukocyte Negative NEG^Negat 07/21/2019 [place] Esterase Urine herrera 8:50 AM CDT [facility] Source Midstream 07/21/2019 [place] Urine 8:38 AM CDT [facility] Specimen (Source) Anatomical Collection Method Collection Time Re ceived Time Location / / Volume Laterality Examination of 07/21/2019 8:37 07/21/2019 8:38 midstream urine AM CDT AM CDT specimen (procedure) Travis Hagan MD LAB - URINE ORDERABLES Performing Organization Address City/State/ZIP Code Phon e Number [facility] [address] [place] [address] (ABNORMAL) Wet prep (07/21/2019 8:37 AM CDT) [facility] gist Method Time Signature Specimen Vagina [place] Description [facility] Wet Prep Moderate 07/21/2019 [place] Clue cells seen 8:40 AM CDT [facility]IN[facility] (A) [facility] Wet Prep No yeast seen 07/21/2019 [place] 8:40 AM CDT [facility] Wet Prep No Trichomonas 07/21/2019 [place] seen 8:40 AM CDT [facility] Wet Prep No WBC's seen 07/21/2019 [place] 8:40 AM CDT [facility] Specimen Anatomical Collection Method Collection Time Receive d Time (Source) Location / / Volume Laterality Specimen from 07/21/2019 8:37 AM 07/21/20 19 8:38 vagina CDT AM CDT (specimen) Travis Hagan MD LAB - MICRO GENERAL ORDERABL ES Performing Organization Address City/State/ZIP Code Phon e Number [facility] [address] [place] [address] Pap imaged thin layer diagnostic only (07/21/2019 8:36 AM CDT) Component Value Ref Test Analysis Performed At [facility] gist Range Method Time Signature PAP NIL COPATH Copath Report COPATH Patient Name: JOEL AMOS MR#: [id number] Specimen #: [id number] Collected: 07/21/2019 Received: 07/24/2019 Reported: 07/26/2019 14:33 [...] or malignancy Electronically signed out by: ANGIE Sinha (ASCP) CLINICAL HISTORY: Intra-Uterine Device, A previous normal pap Date of Last Pap: 09/16/18, History of positive HPV, Papanicolaou Test Limitations: ??Cervical cytology is a sc reening test with limited sensitivity; regular screening is critical for cancer prevention; Pap tests are p rimarily effective for the diagnosis/prevention of squamous cell carcinoma, not adenocarcinomas or other cancer s. COLLECTION SITE: Client: ??[facility] Location: [facility] (R) The technical component of this testing was completed at the [facility], with the professional compo nent performed at the [facility], [address] [facility], [place] [address] ([phone]) Specimen (Source) Anatomical Collection Method Collection Time [...] documented as of this encounter Care Teams Publication Specialist Relationship Specialty Start Date End Date Viri Gallardo APRN CONSTRUCTION DRIVER PCP - General Nurse Practitioner 06/29/17 04/14/[address] [place] [address] [place] [address] Viri Gallardo APRN CONSTRUCTION DRIVER Assigned PCP 09/12/17 09/16/[address] [place] [address] [place] [address] documented as of this encounter
--- OUTSIDE RECORDS SUMMARY | 2022-09-07 11:58 | XMS_ITS | Encounter Summary ---
:1995 Author Organization [place] Address [address] [place] [address] Care Team Providers Name Role Phone Viri Gallardo APRN, CNP Primary Care Provider [phone] Chasity Wild PA-C Unavailable [phone] Reason for Visit Diagnostic Imaging XR (Routine) - Closed Specialty Diagnoses / Procedures Referred By Contact Refer red To Contact Diagnoses Cough Josse Hassan, Procedures XR Chest 2 Views JAGDISH [address] [facility] [place] [address] Referral ID Status Reason Start Date Expiration Date Visits Requ ested Visits Authorized [id number] Closed 12/14/2019 12/13/2020 1 1 Encounter Details Date Type Department Care Team Description 12/14/2019 Ancillary Procedure [facility] Josse Hassan [facility] Jesu [place] PA-C [address] [place] [address] [place] [phone] Social History Tobacco Use Types Packs/Day Years [...] 9:32 AM Cough Resul ts for this LIQUOR DEPARTMENT MANAGER procedure are i n the results section. documented in this encounter Results XR Chest 2 Views (12/14/2019 9:32 AM LIQUOR DEPARTMENT MANAGER) Anatomical Region Laterality Modality Chest Computed Radiography Specimen (Source) Anatomical Location Collection Method / Collectio n Time Received Time / Laterality Volume Impressions 12/14/2019 11:02 AM LIQUOR DEPARTMENT MANAGER IMPRESSION: Since May 10, 2018, heart size is normal. No pleural effusion, pneumothorax, or abnormal area of consolidation. Slight opacity adjacent to the right heart bord er thought to be pericardial fat pad. YASSINE GUAMAN MD Narrative 12/14/2019 11:02 AM LIQUOR DEPARTMENT MANAGER CHEST TWO VIEWS ??12/14/2019 9:32 AM HISTORY: [...] documented as of this encounter Care Teams Administrative Court Justice Relationship Specialty Start Date End Date Viri Gallardo APRN CNP PCP - General Nurse Practitioner 06/29/17 04/14/20 [address] [facility] [place] [address] Chasity Wild PA-C Assigned PCP 09/17/19 08/17/[address] [place] [address] [address] [place], [place] [address] documented as of this encounter
--- OUTSIDE RECORDS SUMMARY | 2022-09-07 11:58 | XMS_ITS | Encounter Summary ---
:1995 Author Organization [place] Address [address] [place] [address] Care Team Providers Name Role Phone Viri Gallardo APRN, CNP Primary Care Provider [phone] Chasity Wild PA-C Unavailable [phone] Reason for Referral Diagnostic Imaging XR (Routine) - Closed Specialty Diagnoses / Procedures Referred By Contact Refer red To Contact Diagnoses Cough Josse Hassan, Procedures XR Chest 2 Views JAGDISH [address] [facility] [place] [address] Referral ID Status Reason Start Date Expiration Date Visits Requ ested Visits Authorized [id number] Closed 12/14/2019 12/13/2020 1 1 SPORT SPECIALIST Reason for Visit Reason Comments Urgent Care Pharyngitis sore throat/chills/body ache s Encounter Details Date Type Department Care Team Description 12/14/2019 Office Visit [facility] Josse Hassan Cough (P rimary Dx); Urgent Care Jesu Urbano PA-C Sore throat; [address] [facility] [place] ine vapor product user; [employer] [facility] Acute dysfunction of Eustachian tube, le ft; [address] [place] [address] [address] [place] [phone] Social History Tobacco Use Types Packs/Day Years [...] Comments Blood Pressure 112/65 12/14/2019 9:00 AM TRANSPORT SPECIALIST Pulse 78 12/14/2019 9:00 AM TRANSPORT SPECIALIST Temperature 36.8 ??C (98.2 ??F) 12/14/2019 9:00 AM TRANSPORT SPECIALIST Respiratory Rate 20 12/14/2019 9:00 AM TRANSPORT SPECIALIST Oxygen Saturation 98% 12/14/2019 9:00 AM TRANSPORT SPECIALIST Inhaled Oxygen Concentration - - Weight 51.7 kg (114 lb) 12/14/2019 9:00 AM TRANSPORT SPECIALIST Height - - Body Mass Index 20.19 07/21/2019 7:57 AM CDT documented in this encounter Patient Instructions Patient InstructionsJosse Hassan PA-C - 12/14/2019 9:00 AM TRANSPORT SPECIALIST Images from the original note were not [...] humidified air to open blocked nasal passages. supply chain systems manager a hot shower or use a vaporizer. [...] sore throat Date Last Reviewed: 09/10/2016 ?? [phone] [employer]. [address] [place] [address], [place] [address]. All rights reserved. This information is not [...] yourself at home: ?? You may use nvux-dga-qlwlwro medicine as directed to control pain, unless [...] severe liver damage. ?? You may use uypv-toy-argmwrl decongestants such as phenylephrine or pseudoephedrine. But [...] or confusion Date Last Reviewed: 07/11/2016 ?? [phone] [employer]. [address] [place] [address]. All rights reserved. This information is not intended as a substitute for professional medical care. Always follow your healthcare professional's instructions. SPORT SPECIALIST documented in this encounter Progress Notes Josse [...] humidified air to open blocked nasal passages. supply chain systems manager a hot shower or use a vaporizer. [...] sore throat Date Last Reviewed: 09/10/2016 ?? 6680-7007 [employer]. [address] [place] [address]. All rights reserved. This information is not [...] yourself at home: ?? You may use ytqv-quc-pubilaa medicine as directed to control pain, unless [...] severe liver damage. ?? You may use imjl-mlt-ivajahp decongestants such as phenylephrine or pseudoephedrine. But [...] or confusion Date Last Reviewed: 07/11/2016 ?? 6548-9461 [employer]. [address] [place] [address], [place] [address]. All rights reserved. This information is not intended as a substitute for professional medical care. Always follow your healthcare professional's instructions. documented in this encounter Plan of Treatment Pending Results Name Type Priority Associated Diagnoses Date/Ti me Group A Streptococcus Microbiology Routine Sore throat 2019 9:03 AM PCR Throat Swab TRANSPORT SPECIALIST documented as of this encounter Procedures Procedure Name Priority Date/Time Associated Comments Diagnosis STREPTOCOCCUS A RAPID Routine 12/14/2019 9:03 AM Sore throat Results for this SCREEN W REFELX TO PCR TRANSPORT SPECIALIST proce dure are in the results section. GROUP A STREPTOCOCCUS Routine 12/14/2019 9:03 AM Cough Results for this PCR THROAT SWAB TRANSPORT SPECIALIST procedure ar e in the results section. GROUP A STREPTOCOCCUS Routine 12/14/2019 9:03 AM Sore throat PCR THROAT SWAB TRANSPORT SPECIALIST INFLUENZA A/B ANTIGEN Routine 12/14/2019 9:03 AM Sore throat Results for this TRANSPORT SPECIALIST procedure are i n the results section. documented in this encounter Results XR Chest 2 Views (12/14/2019 9:32 AM TRANSPORT SPECIALIST) Anatomical Region Laterality Modality Chest Computed Radiography Specimen (Source) Anatomical Location Collection Method / Collectio n Time Received Time / Laterality Volume Impressions 12/14/2019 11:02 AM TRANSPORT SPECIALIST IMPRESSION: Since May 10, 2018, heart size is normal. No pleural effusion, pneumothorax, or abnormal area of consolidation. Slight opacity adjacent to the right heart bord er thought to be pericardial fat pad. YASSINE GUAMAN MD Narrative 12/14/2019 11:02 AM TRANSPORT SPECIALIST CHEST TWO VIEWS ??12/14/2019 9:32 AM HISTORY: [...] Streptococcus PCR Throat Swab (12/14/2019 9:03 AM TRANSPORT SPECIALIST) [facility] Method Time Signature Specimen Throat 12/14/2019 BLAINE Description 9:26 AM TRANSPORT SPECIALIST [facility]IN[facility] Strep Group A Not Detected NDET^Not 12/14/2019 MCDONOUGH O F PCR Detected 3:51 PM TRANSPORT SPECIALIST [facility] Comment: Group A Streptococcus DNA is not detecte d. FDA approved assay performed using [employer] GeneXpert real-time PCR. Specimen Anatomical Collection Method Collection Time Receive d Time (Source) Location / / Volume Laterality Specimen from 12/14/2019 9:03 AM 12/14/19 9:04 throat TRANSPORT SPECIALIST AM TRANSPORT SPECIALIST (specimen) Jayjay Carter MD LAB - MICRO GENERAL ORDERABL ES Performing Organization Address City/[facility]/ZIP Code Phon e Number [address] [address] Streptococcus A Rapid Scr w Reflx to PCR (12/14/2019 9:03 AM TRANSPORT SPECIALIST) [facility] Method Time Signature Strep Specimen Throat 12/14/2019 BLAINE Description 9:[address] [facility] Streptococcus Negative NEG^Negat 12/14/2019 BLAINE Group A Rapid herrera 9:26 AM TRANSPORT SPECIALIST [facility] Screen Comment: No Group A streptococcal antigen detecte d by immunoassay. Confirmatory testing in progress. Specimen Anatomical Collection Method Collection Time Receive d Time (Source) Location / / Volume Laterality Specimen from 12/14/2019 9:03 AM 12/14/19 20 9:04 throat TRANSPORT SPECIALIST AM TRANSPORT SPECIALIST (specimen) Jayjay Carter MD LAB - MICRO GENERAL ORDERABL ES Performing Organization Address City/[facility]/ZIP Code Phon e Number [address] [address] Influenza A/B antigen (12/14/2019 9:03 AM TRANSPORT SPECIALIST) athologist Signature Influenza A/B Nasal 12/14/2019 BLAINE Agn Specimen 9:04 AM [facility] Influenza A Negative NEG^Negati 12/14/2019 BLAINE ve 9:33 AM [facility] Influenza B Negative NEG^Negati 12/14/2019 BLAINE ve 9:33 AM [facility] Comment: Test results must be correlated with cli nical data. If necessary, results should be confirmed by a molecular assay or viral culture. Specimen Anatomical Collection Method Collection Time Receive d Time (Source) Location / / Volume Laterality Specimen from 12/14/2019 9:03 AM 12/14/19 9:04 nose (specimen) TRANSPORT SPECIALIST AM TRANSPORT SPECIALIST Jayjay Carter MD LAB - MICRO GENERAL ORDERABL ES Performing Organization Address City/State/ZIP Code Phon e Number [facility] [address] [facility] [place] [address] documented in this encounter Visit Diagnoses Diagnosis Cough - Primary Sore throat Acute pharyngitis Nicotine vapor product user Acute dysfunction of Eustachian tube, le ft Wheeze Wheezing Cough documented in this encounter Additional Health Concerns Assessment Noted Time PHQ-9 Depression Total Score: 15 09/16/2018 1:27 PM CS T documented as of this encounter Care Teams Grating Machine Operator Relationship Specialty Start Date End Date Viri Gallardo APRN SUGAR CANE GROWER PCP - General Nurse Practitioner 06/29/17 04/14/20 [address] [facility] [place] [address] Chasity Wild PA-C Assigned PCP 09/17/19 08/17/[address] [place] [address] [place] [address] documented as of this encounter
--- OUTSIDE RECORDS SUMMARY | 2022-09-07 11:58 | XMS_ITS | Encounter Summary ---
:1995 Author Organization [place] Address [address] [place] [address] Care Team Providers Name Role Phone Viri Gallardo APRN, CNP Primary Care Provider [phone] Viri Gallardo APRN WASTE REMOVALIST Unavailable [phone] Reason for Visit Reason Comments Urgent Care Pharyngitis ST and headaches x 3 days alie freedmanpastora has strep Encounter Details Date Type Department Care Team Description 06/02/2019 Office Visit [facility] Alena Mcgee hroat (Primary Urgent Care Jesu Ashley PA-C Dx) [address] [place] [address] [address] [place] [address] [place] [phone] Social History Tobacco Use Types Packs/Day Years [...] Component Value Ref Test Analysis Performed At [facility] gist Range Method Time Signature Specimen Throat [...] MICRO GENERAL ORDERABL ES Performing Organization Address City/[facility]/ZIP Code Phon e Number [facility]ESU [address] [facility] [place] [phone] Rapid strep screen (06/02/2019 1:41 PM CDT) Component Value Ref Test Analysis Performed At [facility] Range Method Time Signature Specimen Throat [facility] JESU Rapid Strep A NEGATIVE: No 06/02/2019 VAN Screen Group A 2:01 PM CDT CLINICS streptococcal JESU antigen detected by immunoassay, await culture report. Specimen Anatomical Collection Method Collection Time Receive d Time (Source) Location / / Volume Laterality Specimen from 06/02/2019 1:41 PM 06/02/20 19 1:43 throat CDT PM CDT (specimen) Alena Brioneschantell [facility] LAB - MICRO GENERAL ORDERABL ES Performing Organization Address City/[facility]/ZIP Code Phon e Number [facility] [place]U [address] [facility] [place] [phone] documented in this encounter Visit Diagnoses Diagnosis Sore throat - Primary Acute pharyngitis documented in this encounter Additional Health Concerns Assessment Noted Time PHQ-9 Depression Total Score: 15 09/16/2018 1:27 PM CS T documented as of this encounter Care Teams Senior Php Software Developer Relationship Specialty Start Date End Date Viri Gallardo APRN WASTE REMOVALIST PCP - General Nurse Practitioner 06/29/17 04/14/20 [address] [facility] [place] [address] Viri Gallardo APRN WASTE REMOVALIST Assigned PCP 09/12/17 09/16/19 [address] [facility] [place] [address] documented as of this encounter
--- OUTSIDE RECORDS SUMMARY | 2022-09-07 11:58 | XMS_ITS | Encounter Summary ---
:1995 Author Organization [place] Address [address] [place] [address] Care Team Providers Name Role Phone No Ref-Primary, Physician Primary Care Provider [phone] Viri Gallardo APRN LINE CONTROLLER Unavailable + Viri Gallardo APRN LINE CONTROLLER Unavailable + Encounter Details Date Type Department [...] documented as of this encounter Care Teams Blending Operator Relationship Specialty Start Date End Date No Ref-Primary, Physician PCP - General 04/15/20 Viri Gallardo APRN CNP Nurse Practitioner 04/15/20 [address] [facility] [place] [address] Viri Gallardo APRN LINE CONTROLLER Assigned PCP 08/18/20 04/24/21 [address] [facility] [place] [address] documented as of this encounter
--- OUTSIDE RECORDS SUMMARY | 2022-09-07 11:58 | XMS_ITS | Encounter Summary ---
:1995 Author Organization [place] Address [address] [place] [address] Care Team Providers Name Role Phone Viri Gallardo APRN, CNP Primary Care Provider [phone] Chasity Wild PA-C Unavailable [phone] Encounter Details Date Type Department Care Team [...] as of this encounter Care Teams Production Support Specialist Relationship Specialty Start Date End Date Viri Gallardo APRN CNP PCP - General Nurse Practitioner 06/29/17 04/14/20 [address] [facility] [place] [address] Chasity Wild PA-C Assigned PCP 09/17/19 08/17/[address] [facility] [address] [place], [place] [address] documented as of this encounter
--- OUTSIDE RECORDS SUMMARY | 2022-09-07 11:58 | XMS_ITS | Encounter Summary ---
:1995 Author Organization [place] Address [address] [place] [address] Care Team Providers Name Role Phone No Ref-Primary, Physician Primary Care Provider [phone] Viri Gallardo APRN MANUFACTURING TEAM MEMBER Unavailable + Viri Gallardo APRN MANUFACTURING TEAM MEMBER Unavailable + Encounter Details Date Type Department [...] as of this encounter Care Teams Communications Consultant Relationship Specialty Start Date End Date No Ref-Primary, Physician PCP - General 04/15/20 Viri Gallardo APRN CNP Nurse Practitioner 04/15/20 [address] [facility] [place] [address] Viri Gallardo APRN MANUFACTURING TEAM MEMBER Assigned PCP 08/18/20 04/24/21 [address] [facility] [place] [address] documented as of this encounter
--- OUTSIDE RECORDS SUMMARY | 2022-09-07 11:58 | XMS_ITS | Encounter Summary ---
:1995 Author Organization [place] Address [address] [place] [address]. [place] [address] Care Team Providers Name Role Phone No Ref-Primary, Physician Primary Care Provider [phone] Viri Gallardo APRN IRON MINER BLASTING Unavailable [phone] Viri Gallardo APRN IRON MINER BLASTING Unavailable [phone] Reason for Visit Reason Comments Suicidal SI and HI (towards men), no intent on acting, racing thoughts Auth/Cert Specialty Diagnoses / Procedures Referred By Contact Refer red To Contact EMERGENCY MEDICINE Ur Emergency Dept [address] [place] [address] [place] [phone] Phone: Fax: Referral ID Status Reason Start Date Expiration Date Visits Requ ested Visits Authorized [id number] 1 1 Encounter Details Date Type Department Care Team Description 03/03/2021 Emergency [facility] Jed Bae MD Hypomania (H); Emergency Department [address] [place] [address] Aggressive behavior of adult; [address] [place] [address] Suicidal [place]ation [place] [address] [phone] (Wo rk) Social History Tobacco Use Types [...] in this encounter Discharge Instructions Discharge InstructionsPrashant Moarn MD - 03/03/2021 7:07 PM CDT Discharge [...] 03/03/2021 12:18 PM CDT ED Provider Note [facility] History Chief Complaint Patient presents [...] The patient was also seen by the [facility] trench digging machine operator, please refer to their extensive note/evaluation whichwas [...] adult Suicidal ideation -- Jed Bae MD [facility] EMERGENCY DEPARTMENT 03/03/2021 Jed Bae MD 03/03/21 4258 documented in this encounter Miscellaneous Notes Pharmacy-Admission Medication History - Jerrica Pemberton RPH - 03/03/2021 4:44 PM CDT Admission Medication History Completed by Pharmacy See [facility] Admission Navigator for allergy information, preferred outpatient pharmacy, prior to admission medications and immunization status. Medication History Sources: ??? Surescripts (fill history), CareEverywhere, and patient interview (via iPad) Changes made to PIPE THREADING MACHINE OPERATOR medication list (reason): ??? Added: None ? [...] Medication history completed [facility]: [facility]emberton, [facility]: Ascom *[id number] Safe - Yelena Hedrick ADRIANO Cuevas - [...] R esults for this CHEM DEP URINE ([facility]) CDT proced ure are in the results [...] – [facility] 5:30 PM CDT [facility] Comment: This test is for screening purposes. ??R esults should be interpreted along with the clinical picture. ??Confirmation te sting is available if warranted by ordering [id number], HCG Quantitative Pregna ncy. Specimen Anatomical Collection Method Collection Time Receive d Time (Source) Location / / Volume Laterality Urine URINE SPECIMEN / 03/03/2021 5:01 PM 03/03 5:13 Unknown CDT PM CDT Jed Bae MD LAB - URINE ORDERABLES Performing Organization Address City/State/ZIP Code Phon e Number [facility] [address] [place], [place] [phone] [place] [address] (ABNORMAL) Drug abuse screen 6 urine (chem dep) (03/03/2021 5:01 PM CDT) Patholo gist Method Time Signature Amphetamine Qual Negative NEG^Negat 03/03/2021 [facility] O F Urine herrera 5:36 PM CDT [facility] Comment: Cutoff for a negative amphetami ne is 500 ng/mL or less. Barbiturates Qual Negative NEG^Negative 03/03/2021 5:35 PM [facility] Comment: Cutoff for a negative barbitura te is 200 ng/mL or less. Benzodiazepine Qual Negative NEG^Negative 03/03/2021 5:35 P M [facility] Comment: Cutoff for a negative benzodiaz epine is 200 ng/mL or less. Cannabinoids Qual Positive (A) NEG^Negative 03/03/2021 5:3 6 PM [facility] Comment: Cutoff for a positive cannabinoid is gre ater than 50 ng/mL. This is an unconfirmed screening result to be used for medical purposes only. Cocaine Qual Urine Negative NEG^Negative 03/03/2021 5:36 PM [facility] Comment: Cutoff for a negative cocaine i s 300 ng/mL or less. Ethanol Qual Urine Negative NEG^Negative 03/03/2021 5:35 PM [facility] Comment: Cutoff for a negative urine eth anol is 0.05 g/dL or less Opiates Qualitative Negative NEG^Negative 03/03/2021 5:35 P M [facility] Comment: Cutoff for a negative opiate is 300 ng/mL or less. Specimen Anatomical Collection Method Collection Time Receive d Time (Source) Location / / Volume Laterality Urine URINE SPECIMEN / 03/03/2021 5:01 PM 03/03 5:13 Unknown CDT PM CDT Jed Bae MD LAB - URINE ORDERABLES Performing Organization Address City/State/ZIP Code Phon e Number [facility] [address] [place] [address] [facility] Asymptomatic SARS-CoV-2 COVID-19 Virus (Coronavirus) by PCR (03/03/2021 1:41 PM CDT) [facility] Method Time Signature SARS-CoV-2 Nasopharyngeal 03/03/2021 [facility] OF Virus 2:04 PM CDT [facility] SARS-CoV-2 NEGATIVE 03/03/2021 UNIV[facility]ITY PCR Result 4:15 PM CDT [facility] Comment: SARS-CoV2 (COVID-19) RNA not de tected, presumed negative. SARS-CoV-2 PCR Comment (Note) 03/03/2021 4:15 P M CDT [facility] Comment: Testing was performed using the [...] exposure or clinical pr esentation suggests COVID-19. [facility] [employer] are certi fied under the Clinical Laboratory [...] Code Phon e Number [facility] [address] [place], [place] [phone] [place] [address] documented in this encounter Visit Diagnoses Diagnosis [...] documented as of this encounter Care Teams Forge Tender Relationship Specialty Start Date End Date No Ref-Primary, Physician PCP - General 04/15/20 Viri Gallardo APRN IRON MINER BLASTING Nurse Practitioner 04/15/[address] [facility] [place] [address] Viri Gallardo APRN IRON MINER BLASTING Assigned PCP 08/18/20 04/24/[address] [facility] [place] [address] documented as of this encounter
--- OUTSIDE RECORDS SUMMARY | 2022-09-07 11:58 | XMS_ITS | Encounter Summary ---
:1995 Author Organization [place] Address [address] [place] [address] Care Team Providers Name Role Phone Viri Gallardo APRN, CNP Primary Care Provider [phone] Viri Gallardo APRN, CNP Unavailable [phone] Encounter Details Date Type Department Care Team [...] documented as of this encounter Care Teams Mill Tender Warm Up Relationship Specialty Start Date End Date Viri Gallardo APRN CNP PCP - General Nurse Practitioner 06/29/17 04/14/20 [address] [facility] [place] [address] Viri Gallardo APRN CNP Assigned PCP 09/12/17 09/16/[address] [place] [address] documented as of this encounter
--- OUTSIDE RECORDS SUMMARY | 2022-09-07 11:58 | XMS_ITS | Encounter Summary ---
:1995 Author Organization [place] Address [address] [place] [address] Care Team Providers Name Role Phone Viri Gallardo APRN, CNP Primary Care Provider [phone] Viri Gallardo APRN KICK PRESS SETTER Unavailable [phone] Reason for Visit Reason Onset Date Comments Pre-Op Exam Imm/Inj 08/17/2019 Flu Shot Encounter Details Date Type Department Care Team Description 08/17/2019 Office Visit [facility] Chasity Wild general physical exam (Primary Dx); [facility] JAGDISH Romero, left; [address] Need for prophylactic vaccin ation and inoculation against influenza [address] [facility] [address] [place] [address] [address] [place], [place] [phone] [address] (Work) [phone] Social History Tobacco Use Types Packs/Day Years [...] Comments Blood Pressure 120/68 08/17/2019 11:03 AM PUBLISHING SYSTEMS ANALYST Pulse 85 08/17/2019 11:03 AM PUBLISHING SYSTEMS ANALYST Temperature 36.9 ??C (98.4 ??F) 08/17/2019 11:03 AM PUBLISHING SYSTEMS ANALYST Respiratory Rate 14 08/17/2019 11:03 AM PUBLISHING SYSTEMS ANALYST Oxygen Saturation 97% 08/17/2019 11:03 AM PUBLISHING SYSTEMS ANALYST Inhaled Oxygen Concentration - - Weight 56.2 kg (124 lb) 08/17/2019 11:03 AM PUBLISHING SYSTEMS ANALYST Height - - Body Mass Index 21.97 [...] IBUPROFEN/MOTRIN for two days prior to surgery. ISHING SYSTEMS ANALYST documented in this encounter Progress Notes Chasity Wild PA-C - 08/17/2019 11:10 AM CST [address] [address] Dept: PRE-OP EVALUATION: Today's date: 08/17/2019 Joel Amos (: 1995) presents for pre-operative evaluation assessment as requested by Dr. Demian Anderson. She requires evaluation and anesthesia risk assessment prior to undergoing surgery/procedure for treatment of bunion. Fax number for surgical facility: [phone] Primary Physician: Viri Gallardo Type of Anesthesia Anticipated: General Patient has a Health Care Directive or Living Will: NO Preop Questions 08/17/2019 Who is doing your surgery? Dr. Demian Anderson What are you having done? Modified left lapidus/Henderson and gastrocnemius recession Date of Surgery/Procedure: Facility or Hospital where procedure/surgery will be performed: [facility] 1. Do you have a history [...] call the 24 hour nurse line at [phone] Patient needs to schedule an appointment I will call the 24 hour scheduling team at [phone] orclinic directly Same day treatment I will [...] cardiovascular risks for perioperative complications such as (ND, PE, VFib and 3?? AV Block): No serious cardiac risks INTERPRETATION: 0 risks: Class I (very low risk - 0.4% complication rate) The patient has the following additional risks for perioperative complications: No identified additional risks ICD-10-CM 1. Preop general physical exam Z01.818 HCG Qual, Urine ([id number]) 2. Bunion, left M21.612 3. Need for prophylactic vaccination and inoculation against influenza Z23 INFLUENZA VACCINE IM >6 MONTHS VALENT IIV4 [67320] Vaccine Administration, Initial [70829] RECOMMENDATIONS: --Patient is to take all scheduled [...] Mallory Preop Guidelines Revised Cardiac Risk Index ISHING SYSTEMS ANALYST documented in this encounter Plan of Treatment Not on filedocumented as of this encounter Procedures Procedure Name Priority Date/Time Associated Comments Diagnosis HCG QUALITATIVE URINE Routine 08/17/2019 11:36 Preop general R esults for this AM PUBLISHING SYSTEMS ANALYST physical exam procedure are in the results section. documented in this encounter Results HCG Qual, Urine ([id number]) (08/17/2019 11:36 AM PUBLISHING SYSTEMS ANALYST) [facility] Method Time Signature HCG Qual Urine Negative NEG^Negati 08/17/2019 [place] ve 11:48 AM PUBLISHING SYSTEMS ANALYST [facility] Comment: This test is for screening purposes. ??R esults should be interpreted along with the clinical picture. ??Confirmation te sting is available if warranted by ordering [id number], HCG Quantitative Pregna ncy. Specimen Anatomical Collection Method Collection Time Receive d Time (Source) Location / / Volume Laterality Urine specimen 08/17/2019 11:36 9 (specimen) AM PUBLISHING SYSTEMS ANALYST 11:41 AM PUBLISHING SYSTEMS ANALYST Chasity Wild PA-C LAB - URINE ORDERABLES Performing Organization Address City/State/ZIP Code Phon e Number [facility] [address] [place], [place] [id number] [facility] documented in this encounter Visit Diagnoses Diagnosis Preop general physical exam - Primary Other specified pre-operative examinatio n Bunion, left Need for prophylactic vaccination and in oculation against influenza documented in this encounter Additional Health Concerns Assessment Noted Time PHQ-9 Depression Total Score: 15 09/16/2018 1:27 PM CS T documented as of this encounter Care Teams Aircraft Landing Gear Inspector Relationship Specialty Start Date End Date Viri Gallardo APRN KICK PRESS SETTER PCP - General Nurse Practitioner 06/29/17 04/14/20 [address] [facility] [place] [address] Viri Gallardo APRN KICK PRESS SETTER Assigned PCP 09/12/17 09/16/19 [address] [facility] [place] [id number] documented as of this encounter
--- OUTSIDE RECORDS SUMMARY | 2022-09-07 11:58 | XMS_ITS | Encounter Summary ---
:1995 Author Organization [place] Address [address] [place] [address] Care Team Providers Name Role Phone No Ref-Primary, Physician Primary Care Provider [phone] Viri Gallardo APRN MANAGER BATTERY Unavailable [phone] Chasity Wild PA-C Unavailable [phone] Encounter Details Date Type Department Care Team [...] documented as of this encounter Care Teams Property Condition Assessor Relationship Specialty Start Date End Date No Ref-Primary, Physician PCP - General 04/15/20 Viri Gallardo APRN MANAGER BATTERY Nurse Practitioner 04/15/20 [address] [facility] [place] [address] Chasity Wild PA-C Assigned PCP 09/17/19 08/17/20 0 [facility] [place] [id number] documented as of this encounter
--- OUTSIDE RECORDS SUMMARY | 2022-09-07 11:58 | XMS_ITS | Encounter Summary ---
:1995 Author Organization [place] Address [address] [place] [address] Care Team Providers Name Role Phone Viri Gallardo APRN, CNP Primary Care Provider Viri Gallardo APRN, CNP Unavailable [phone] Encounter Details Date Type Department Care Team [...] documented as of this encounter Care Teams Machining Associate Relationship Specialty Start Date End Date Viri Gallardo APRN CNP PCP - General Nurse Practitioner 06/29/17 04/14/20 [address] [facility] [place] [address] Viri Gallardo APRN CNP Assigned PCP 09/12/17 09/16/19 [address] [facility] [place] [address] documented as of this encounter
--- OUTSIDE RECORDS SUMMARY | 2022-09-07 11:58 | XMS_ITS | Encounter Summary ---
:1995 Author Organization [place] Address [address] [facility] [place] [address] Care Team Providers Name Role Phone No Ref-Primary, Physician Primary Care Provider [phone] Viri Gallardo APRN GAS PLANT WORKER Unavailable [phone] Chasity Wild PA-C Unavailable [phone] Encounter Details Date Type Department Care Team Description 04/15/2020 Medical Correspondence [facility], Emergency Department Non-Provider [address] [place] [address] Social History Tobacco Use Types [...] as of this encounter Care Teams It Auditor Relationship Specialty Start Date End Date No Ref-Primary, Physician PCP - General 04/15/20 Viri Gallardo APRN GAS PLANT WORKER Nurse Practitioner 04/15/20 [address] [facility] [place] [address] Chasity Wild PA-C Assigned PCP 09/17/19 08/17/[address] [place] [address] [place] [id number] documented as of this encounter
--- OUTSIDE RECORDS SUMMARY | 2022-09-07 11:58 | XMS_ITS | Encounter Summary ---
:1995 Author Organization [place] Address [facility] [place] [address] Care Team Providers Name Role Phone No Ref-Primary, Physician Primary Care Provider [phone] Viri Gallardo APRN INSPECTION CLERK Unavailable [phone] Chasity Wild PA-C Unavailable [phone] Reason for Visit Reason Comments Mental Health Problem Pt states she is having incr eased panic attacks Encounter Details Date Type Department Care Team Description 04/15/2020 Emergency Health [facility] Arianne [place] MD [address] [place] [address] Adjustment disorder with mixed anxiety a nd depressed mood; Emergency Department Angel Katz MD [address] [place] [address] [place] [address] Substance abuse (H) [address] [place] [address] Social History Tobacco Use Types Packs/Day [...] Base) MCG/ACT inhalerIndications: Wheeze fluticasone (FLONASE) 50 [place] 1 spray into 15.8 mL 0 02/202003/03/2021 [...] point in time. Marija Hubbard MD 04/15/20 4256 Alexandria Mooney RN - 04/15/2020 6:23 PM [...] 04/15/2020 6:21 PM CDT ED Provider Note [facility] History Chief Complaint Patient presents with ??? Mental Health Problem Pt states she is having increased panic attacks HPI Joel Bautista is a 24 year old female who is here as she wants to come into the hospital due to no place to stay presently. She had arrived from [place] where she was with her boyfriend. She [...] home and decided to come back to [place]. Patient feels she should be hospitalized and if not, then she will not agree to any recommendations.She declined offered therapy, medications, CD treatment and homeless intermediate placement. Patient wanted to leave as she realized she was not being admitted. She does not exhibit psychosis. She does not appear under the influence. Please see [facility] Crisis Assessment on 04/15/2020 in [facility] for further details. Past Medical History Past [...] place to go. She came back from [place] after she got kicked out of boyfriend's place last week. There was no justification to offer admission and patient decided to leave as she was not getting what she wanted here. She declined all outpatient offers including therapy, intermediate placement referrals, treatment. She is encouraged to pursue a rule 25. I have reviewed the nursing notes. I have reviewed the findings, diagnosis, plan and need for followup with the patient. New Prescriptions No medications on file Final diagnoses: Adjustment disorder with mixed anxiety and depressed mood Substance abuse (H) -- Angel Katz MD Emergency Medicine [facility] [place], EMERGENCY DEPARTMENT 04/15/2020 Angel Katz MD 04/15/202040 [...] documented as of this encounter Care Teams Product Safety Test Engineer Relationship Specialty Start Date End Date No Ref-Primary, Physician PCP - General 04/15/20 Viri Gallardo APRN INSPECTION CLERK Nurse Practitioner 04/15/20 [address] [facility] [place] [address] Chasity Wild PA-C Assigned PCP 09/17/19 08/17/[address] [place] [address] [place] [address] documented as of this encounter
--- OUTSIDE RECORDS SUMMARY | 2022-09-07 11:58 | XMS_ITS | Encounter Summary ---
:1995 Author Organization [place] Address [address] [place] [address] Care Team Providers Name Role Phone Viri Gallardo APRN, CNP Primary Care Provider [phone] Viir Gallardo APRN CABINET ABRASIVE SANDBLASTER Unavailable [phone] Reason for Visit Reason Comments Urgent Care UTI poss UTI Encounter Details Date Type Department Care Team Description 06/28/[address] [facility] Josse Hassan BV (bact erial vaginosis) (Primary Dx); Urgent Care Jeus Urbano PA-C Dysuria [address] [place] [address] [facility] [address] [place] [address] [place] [address] Social History Tobacco Use Types Packs/Day [...] or sores. Date Last Reviewed: 07/11/2017 ?? [id number] [employer]. [address] [place] [address]. All rights reserved. This information is not [...] NEG^Negative Ketones Urine Negative NEG^Negative mg/dL Specific [place] Urine 1.015 1.003 - 1.035 Blood Urine [...] or sores. Date Last Reviewed: 07/11/2017 ?? [phone] [employer] [address] [place] [address]. All rights reserved. This information is not [...] CDT CLINICS [place] Squamous Few FEW^Few 06/28/2019 [place] Epithelial /LPF /LPF 12:38 PM CDT CLINICS [place] Urine Bacteria Urine Few (A) NEG^Negati 06/28/2019 [place] ve /HPF 12:38 PM CDT [facility] [place] Specimen Anatomical Collection Method Collection Time Receive d Time (Source) Location / / Volume Laterality 06/28/2019 12:26 06/28/2019 PM CDT 12:27 PM CDT Josse Hassan PA-C LAB - URINE ORDERABLES Performing Organization Address City/State/ZIP Code Phon e Number [facility] [place] [address] [place] [address] (ABNORMAL) UA reflex to Microscopic and Culture (06/28/2019 12:26 PM CDT) Patholo gist Method Time Signature Color Urine Yellow 06/28/2019 [place] 12:38 PM CLINICS CDT [place] Appearance Urine Clear 06/28/2019 [place] 12:38 PM CLINICS CDT [place] Glucose Urine Negative NEG^Negat 06/28/2019 [place] herrera mg/dL 12:38 PM CLINICS CDT [place] Bilirubin Urine Negative NEG^Negat 06/28/2019 [place] herrera 12:38 PM CLINICS CDT [place] Ketones Urine Negative NEG^Negat 06/28/2019 [place] herrera mg/dL 12:38 PM CLINICS CDT [place] Specific [place] 1.015 1.003 - 06/28/2019 [place] Urine 1.035 12:38 PM CLINICS CDT [place] Blood Urine Negative NEG^Negat 06/28/2019 [place] ehrrera 12:38 PM CLINICS CDT [place] pH Urine 7.5 (H) 5.0 - 7.0 06/28/2019 [place] pH 12:38 PM CLINICS CDT [place] Protein Albumin Negative NEG^Negat 06/28/2019 [place] Urine herrera mg/dL 12:38 PM CLINICS CDT [place] Urobilinogen 0.2 0.2 - 1.0 06/28/2019 [place] Urine EU/dL 12:38 PM CLINICS CDT [place] Nitrite Urine Negative NEG^Negat 06/28/2019 [place] herrera 12:38 PM CLINICS CDT [place] Leukocyte Trace (A) NEG^Negat 06/28/2019 [place] Esterase Urine herrera 12:38 PM CLINICS CDT [place] Source Midstream 06/28/2019 [place] Urine 12:27 PM CLINICS CDT [place] Specimen (Source) Anatomical Collection Method Collection Time Re ceived Time Location / / Volume Laterality Examination of 06/28/2019 12:26 9 midstream urine PM CDT 12:27 PM CDT specimen (procedure) Josse Hassan PA-C LAB - URINE ORDERABLES Performing Organization Address City/[facility]/ZIP Code Phon e Number [facility] [address] [place] [address] [phone] (ABNORMAL) Wet prep (06/28/2019 12:25 PM CDT) [facility] Method Time Signature Specimen Vagina [place] Description [facility] [place] Wet Prep No Trichomonas 06/28/2019 [facility] seen 12:37 PM CLINICS CDT [place] Wet Prep No yeast seen 06/28/2019 [place] 12:37 PM CLINICS CDT [place] Wet Prep No WBC's seen 06/28/2019 [place] 12:37 PM CLINICS CDT [place] Wet Prep Many 06/28/2019 [place] Clue cells seen 12:37 PM CLINICS (A) CDT [place] Specimen Anatomical Collection Method Collection Time Receive d Time (Source) Location / / Volume Laterality Specimen from 06/28/2019 12:25 06/28/2019 vagina PM CDT 12:26 PM CDT (specimen) Josse Hassan PA-C LAB - MICRO GENERAL ORDE RABLES Performing Organization Address City/[facility]/ZIP Code Phon e Number [facility] [address] [place] [phone] documented in this encounter Visit Diagnoses Diagnosis BV (bacterial vaginosis) - Primary Vaginitis and vulvovaginitis, unspecifie d Dysuria documented in this encounter Additional Health Concerns Assessment Noted Time PHQ-9 Depression Total Score: 15 09/16/2018 1:27 PM CS T documented as of this encounter Care Teams Mat Machine Tender Relationship Specialty Start Date End Date Viri Gallardo APRN CNP PCP - General Nurse Practitioner 06/29/17 04/14/20 [address] [facility] [place] [address] Viri Gallardo APRN CNP Assigned PCP 09/12/17 09/16/19 [address] [facility] [place] [address] documented as of this encounter
--- OUTSIDE RECORDS SUMMARY | 2022-09-07 11:58 | XMS_ITS | Encounter Summary ---
:1995 Author Organization [place] Address [address] [place] [address] Care Team Providers Name Role Phone Viri Gallardo APRN, CNP Primary Care Provider [phone] Viri Gallardo APRN, CNP Unavailable [phone] Encounter Details Date Type Department Care Team [...] as of this encounter Care Teams Radio Installer Relationship Specialty Start Date End Date Viri Gallardo APRN CNP PCP - General Nurse Practitioner 06/29/17 04/14/20 305[address] [facility] [place] [address] Viri Gallardo APRN CNP Assigned PCP 09/12/17 09/16/19 [address] [facility] [place] [address] documented as of this encounter
--- OUTSIDE RECORDS SUMMARY | 2022-09-07 11:58 | XMS_ITS | Encounter Summary ---
:1995 Author Organization [place] Address [address] [place] [address] Care Team Providers Name Role Phone Viri Gallardo APRN, CNP Primary Care Provider [phone] Chasity Wild PA-C Unavailable [phone] Encounter Details Date Type Department Care Team [...] documented as of this encounter Care Teams Elevator Serviceman Relationship Specialty Start Date End Date Viri Gallardo APRN CNP PCP - General Nurse Practitioner 06/29/17 04/14/20 [address] [facility] [place] [address] Chasity Wild PA-C Assigned PCP 09/17/19 08/17/20 0 [facility] [place] [address] documented as of this encounter
--- OUTSIDE RECORDS SUMMARY | 2022-09-07 11:58 | XMS_ITS | Encounter Summary ---
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 [id number] [employer]. [address] [place] [address], [place] [address]. All rights reserved. This information is not intended as a substitute for professional medical care. Always follow your healthcare professional's instructions. If you develop severe pain, an acute drop in vision, new flashes or floaters, or worsening eye redness, please contact the Eye Clinic immediately at [phone]. Follow up in 6-12 months, sooner as needed. If you develop any new numbness/tingling/weakness of your arms or legs, or any difficulty walking orspeaking, please go to the Emergency Room immediately. documented in this encounter Progress Notes Sharron Maher MD - 01/28/2019 8:00 AM CDT CC: Pupil changes, headache HPI: 23 y/o F with no POH, presents for eval s/p ED visit at [facility] yesterday. Had been seen for pupil [...] CVF full each eye -MRI brain at [facility] (01/27/19) - normal. -likely associated with [...] documented as of this encounter Care Teams Specialist Physician Relationship Specialty Start Date End Date Viri Gallardo APRN TALKING BOOKS LIBRARY CLERK PCP - General Nurse Practitioner 06/29/17 04/14/20 3[address] [facility] [place] [address] Viri Gallardo APRN TALKING BOOKS LIBRARY CLERK Assigned PCP 09/12/17 09/16/19 3[address] [facility] [place] [address] documented as of this encounter
--- OUTSIDE RECORDS SUMMARY | 2022-09-07 11:58 | XMS_ITS | Encounter Summary ---
:1995 Author Organization [place] Address [address] [place] [address] Care Team Providers Name Role Phone Viri Gallardo APRN, CNP Primary Care Provider [phone] Chasity Wild PA-C Unavailable [phone] Reason for Visit Reason Comments Urgent Care Ear Problem right ear pain since October . 03/20 Encounter Details Date Type Department Care Team Description 02/05/2020 Office Visit [facility] Brii Scott Dysfunc tion of right Urgent Care [place] Lloyd PA-C eustachian tube [address] [place] [address] [facility] (Primary Dx) [place] [address] [address] [place] [address] [phone] Social History Tobacco Use Types Packs/Day Years [...] ??? fluticasone (FLONASE) 50 MCG/ACT nasal spray [place] 1 spray into both nostrils daily 15.8 [...] as of this encounter Care Teams Commercial Real Estate Appraiser Relationship Specialty Start Date End Date Viri Gallardo APRN BRAKE COUPLER DINKEY PCP - General Nurse Practitioner 06/29/17 04/14/20 0044 [facility] [place] [address] Chasity Wild PA-C Assigned PCP 09/17/19 08/17/[address] [place] [address] [place] [address] documented as of this encounter
--- OUTSIDE RECORDS SUMMARY | 2022-09-07 11:58 | XMS_ITS | Encounter Summary ---
:1995 Author Organization [place] Address [address] [place] [address] Care Team Providers Name Role Phone Viri Gallardo APRN, CNP Primary Care Provider [phone] Viri Gallardo APRN, CNP Unavailable [phone] Encounter Details Date Type Department Care Team [...] documented as of this encounter Care Teams Food Service Driver Relationship Specialty Start Date End Date Viri Gallardo APRN CNP PCP - General Nurse Practitioner 06/29/17 04/14/20 [address] [facility] [place] [address] Viri Gallardo APRN CNP Assigned PCP 09/12/17 09/16/[address] [facility] [place] [address] documented as of this encounter
--- OUTSIDE RECORDS SUMMARY | 2022-09-07 11:59 | XMS_ITS | Encounter Summary ---
:1995 Author Organization [place] Address [address] [place] [address] Care Team Providers Name Role Phone Viri Gallardo APRN, CNP Primary Care Provider [phone] Viri Gallardo APRN, CNP Unavailable [phone] Viri Gallardo APRN, CNP Unavailable [phone] Reason for Visit Reason Onset Date Comments Medication Request 05/18/2018 HYDROcodone-acetamin ophen (NORCO) 5-325 MG per tablet Encounter Details Date Type Department Care Team Description 05/18/2018 Telephone [facility] Viri Gallardo Medication Request Clinic [place] Nicole APRN CNP (HYDROcodone-acetaminop [address] [place] [address] [facility] hen ( NORCO) 5-325 MG [facility] DR per tablet) [address] [place] [address] [place] [address] [phone] Social History Tobacco Use Types Packs/Day Years [...] APRN CNP - 05/18/2018 5:08 PM CDT [place] is not appropriate and I won't continue [...] follow-up of ER visit and request for [place]? [place] 5-325 mg Last Written Prescription Date: 05/13/18 Last Fill Quantity: 12, # refills: 0 Last Office Visit: 05/13/18 Future Office visit: Routing refill request to provider for review/approval because: Drug not on the FMG, UMP or Health refill protocol or controlled substance RX monitoring program ([place]MP) reviewed: MEDICAL CODING TECHNICIAN reviewed- no concerns [place] profile: [email or web address]/ Per AVS-Continue ibuprofen 600 mg every 6 hours or 800 mg every 8 hours as needed for pain. For severe pain, you can take [place]. If you are having more spasm/cramping pain, Flexeril may be helpful. Caution use with Flexeril and [place] as it will make you drowsy. Use [...] 5-325 MG per tablet. The pt will pickling grader the rx at the clinic bowling or skating front desk clerk. She would like a call when it's [...] documented as of this encounter Care Teams Heater Helper Relationship Specialty Start Date End Date Viri Gallardo, PCP - General Nurse Practitioner 06/29/17 04/14/[address] [place] [address] Vrii Gallardo, PCP - Assigned PCP 09/12/17 12/13/[address] [place] [address] Viri Gallardo, Assigned PCP 09/12/1709/[address] [place] [address] documented as of this encounter
--- OUTSIDE RECORDS SUMMARY | 2022-09-07 11:59 | XMS_ITS | Encounter Summary ---
:1995 Author Organization [place] Address [address] [place] [address] Care Team Providers Name Role Phone Viri Gallardo APRN, CNP Primary Care Provider [phone] Viri Gallardo APRN LOCAL SALES MANAGER Unavailable [phone] Viri Gallardo APRN, CNP Unavailable [phone] Reason for Visit Reason Onset Date Comments Appointment 08/01/2018 Encounter Details Date Type Department Care Team Description 08/01/2018 Telephone [facility] Viri Gallardotine, Appointment Jesu ALARCON LOCAL SALES MANAGER [address] [facility] [address] [facility] [address] [place] [address] [place] [address] [phone] Social History Tobacco Use Types Packs/Day Years [...] documented as of this encounter Care Teams Handyman Relationship Specialty Start Date End Date Viri Gallardo, PCP - General Nurse Practitioner 06/29/17 04/14/[address] [place] [address] Viri Gallardo, PCP - Assigned PCP 09/12/17 12/13/[address] [place] [address] Viri Gallardo, Assigned PCP 09/12/1709/[address] [place] [address] documented as of this encounter
--- OUTSIDE RECORDS SUMMARY | 2022-09-07 11:59 | XMS_ITS | Encounter Summary ---
:1995 Author Organization [place] Address [address] [place] [address] Care Team Providers Name Role Phone Viri Gallardo APRN, CNP Primary Care Provider [phone] Viri Gallardo APRN HOME ADMINISTRATOR Unavailable [phone] Viri Gallardo APRN, CNP Unavailable [phone] Reason for Visit Reason Comments Foot Problems BL foot bunions very painful x 6 months Consultation - Closed Specialty Diagnoses / Procedures Referred By Contact Refer red To Contact Podiatry Diagnoses Bunion Jed Cabezas MD [facility] [address] [facility] JESU TANG 3305 [place] [address] [address] [place] [phone] Phone: Fax: Referral ID Status Reason Start Date Expiration Date Visits Requ ested Visits Authorized [id number] Closed 07/28/2018 07/28/2019 1 1 Encounter Details Date Type Department Care Team Description 08/03/2018 Office Visit [facility] Demian Laureano Hal lux abducto valgus, bilateral (Primary Dx); Clinic Jesu DPM Pain in joints of both feet [address] [place] [address] [facility] [address] [place] [address] [phone] (Wo rk) Social History Tobacco Use Types [...] 7:15 AM CDT Thank you for choosing [facility]! [facility] LOCATIONS WEDNESDAY - Wednesday - JESU [address] [place] [address] [place] [address] / FX [phone] / FX [phone] WEDNESDAY - SCHEDULE SURGERY: [phone] APPOINTMENTS: [phone] [place] [address] BILLING QUESTIONS: [phone] / FX [phone] JANELL SHOES LOCATIONS [place] [address] [place] [address] [phone] [phone] [phone] [place] [address] [phone] [phone] [facility] [address] [phone] [place] [address] [place] [address] BUNION (HALLUX ABDUCTO VALGUS) [...] high heels - Pain during activities - [place] in between the big toe and second [...] 21.26 kg/(m^2). Demian Laureano DPM, FACFAS, [place] [facility]le [facility] HPI: [...] walking? yes Recent foot/ankle injury? no Weight private branch exchange installer past 12 months? 10# gain Self perception as overweight? no Recent flu-like symptoms? no Joint pain other than feet ? 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 Demian Laureano DPM, FACKLEVER, MS [place] [facility] documented [...] as of this encounter Care Teams Clay Burner Relationship Specialty Start Date End Date Viri Gallardo PCP - General Nurse Practitioner 06/29/17 04/14/20 ELECTRIC SPOT WELDER HOME ADMINISTRATOR [address] [facility] [address] [place], [place] [address] Viri Gallardo PCP - Assigned PCP 09/12/17 12/13/18 ELECTRIC SPOT WELDER HOME ADMINISTRATOR [address] [facility] [place] [address] Viri Gallardo, Assigned PCP 09/12/1709/16 ELECTRIC SPOT WELDER HOME ADMINISTRATOR [address] [facility] [place] [address] documented as of this encounter
--- OUTSIDE RECORDS SUMMARY | 2022-09-07 11:59 | XMS_ITS | Encounter Summary ---
:1995 Author Organization [place] Address [address] [place] [address] Care Team Providers Name Role Phone Viri Gallardo APRN, CNP Primary Care Provider [phone] Viri Gallardo APRN MANAGER LOAN Unavailable [phone] Viri Gallardo APRN, CNP Unavailable [phone] Reason for Referral Consultation - Closed Specialty Diagnoses / Procedures Referred By Contact Refer red To Contact Podiatry Diagnoses Jed Roach MD [address] [place] [address] [place] [address] [place] [address] Phone: Fax: Referral ID Status Reason Start Date Expiration Date Visits Requ ested Visits Authorized [id number] Closed 07/28/2018 07/28/2019 1 1 Reason for Visit Reason Comments Mass Encounter Details Date Type Department Care Team Description 07/28/2018 Office Visit [facility] Jed Cabezas MD LAD (lymphadenopathy) (Primary Dx); [address] [address] [address] [place] [address] (Work) [phone] Social History Tobacco Use Types Packs/Day Years [...] Problem List Diagnosis ??? Migraine ??? Health Group Home ??? Pain in joint, pelvic region [...] 120 lb (54.4 kg) Labs reviewed in [facility] Reviewed and updated as needed this [...] a referral to orthopedics. Referred. - ORTHO STRIP CATCHER REFERRAL 2. LAD (lymphadenopathy) Currently 2.5 cm. No concerning characteristics of hardness, pain. Actually improving in size from previously. Will monitor with follow up in 3 months; is likely just a reactive lymph node due to her tatoo on nearby thigh. See Patient Instructions Jed Cabezas MD [facility] documented in this encounter Plan of Treatment Not on filedocumented as of this encounter Visit Diagnoses Diagnosis LAD (lymphadenopathy) - Primary Bunion documented in this encounter Additional Health Concerns Assessment Noted Time PHQ-9 Depression Total Score: 15 04/08/2018 7:11 AM CD T documented as of this encounter Care Teams Director Of Strategic Alliances Relationship Specialty Start Date End Date Viri Gallardo, PCP - General Nurse Practitioner 06/29/17 04/14/20 MANAGER SUBWAY MANAGER LOAN [address] [facility] [place] [address] Viri Gallardo, PCP - Assigned PCP 09/12/17 12/13/18 MANAGER SUBWAY MANAGER LOAN [address] [facility] [place] [address] Viri Gallardo, Assigned PCP 09/12/1709/16 MANAGER SUBWAY MANAGER LOAN [address] [facility] [place] [address] documented as of this encounter
--- OUTSIDE RECORDS SUMMARY | 2022-09-07 11:59 | XMS_ITS | Encounter Summary ---
:1995 Author Organization [place] Address [address] [place] [address] Care Team Providers Name Role Phone Viri Gallardo APRN, CNP Primary Care Provider [phone] Viri Gallardo APRN, CNP Unavailable [phone] Encounter Details Date Type Department Care Team [...] documented as of this encounter Care Teams Street Light Servicer Relationship Specialty Start Date End Date Viri Gallardo APRN CNP PCP - General Nurse Practitioner 06/29/17 04/14/20 [address] [facility] [place] [address] Viri Gallardo APRN CNP Assigned PCP 09/12/17 09/16/19 [address] [facility] [place] [address] documented as of this encounter
--- OUTSIDE RECORDS SUMMARY | 2022-09-07 11:59 | XMS_ITS | Encounter Summary ---
:1995 Author Organization [place] Address [address] [place] [address] Care Team Providers Name Role Phone Viri Gallardo APRN, CNP Primary Care Provider [phone] Viri Gallardo APRN, CNP Unavailable [phone] Viri Gallardo APRN, CNP Unavailable [phone] Reason for Visit Reason Comments Urgent Care Infection Pt has an infected tattoo on left thigh. Tattoo was from ten days ago. It is itchy now and she is just concerned now because she has a swollen lymph node in the left groin . Encounter Details Date Type Department Care Team Description 07/14/2018 Office Visit [facility] Lamar Barragan, Celluli tis of left lower extremity (Primary Dx); Urgent Care Jesu GREEN Extensive tattoos; [address] [place] [address] Exposure to needle, initial encounter; [address] [place] [address] Pain of left thigh [address] [place], [place] [address] [phone] Social History Tobacco Use Types Packs/Day Years [...] Antigen Antibody Combo (07/14/2018 6:34 PM CDT) [facility] Dotted Block Method Time Signature HIV Antigen Nonreactive NR^Nonrea 07/18/2018 [facility] Antibody ctive 9:59 AM CDT [facility] Comment: HIV-1 p24 Ag & HIV-1/HIV-2 Ab N ot Detected Specimen Anatomical Collection Method Collection Time Receive d Time (Source) Location / / Volume Laterality Blood specimen 07/14/2018 6:34 PM 018 6:39 (specimen) CDT PM CDT Lamar Barragan MD LAB - BLOOD ORDERABLES Performing Organization Address City/State/ZIP Code Phon e Number [facility] [address] [place] [address] [place] Hepatitis C antibody (07/14/2018 6:34 PM CDT) [facility] Dotted Block Method Time Signature Hepatitis C Nonreactive NR^Nonrea 07/18/2018 [facility] Antibody ctive 9:59 AM CDT [facility] Comment: Assay performance characteristics have n ot been established for newborns, infants, and children Specimen Anatomical Collection Method Collection Time Receive d Time (Source) Location / / Volume Laterality Blood specimen 07/14/2018 6:34 PM 018 6:39 (specimen) CDT PM CDT Lamar Barragan MD LAB - BLOOD ORDERABLES Performing Organization Address City/[facility]/ZIP Code Phon e Number [address] [address] [place] Hepatitis B core antibody (07/14/2018 6:34 PM CDT) [facility] gist Method Time Signature Hepatitis B Nonreactive NR^Nonrea 07/18/2018 [facility] Judy ctive 9:59 AM CDT [facility] Specimen Anatomical Collection Method Collection Time Receive d Time (Source) Location / / Volume Laterality Blood specimen 07/14/2018 6:34 PM 018 6:39 (specimen) CDT PM CDT Lamar Barragan MD LAB - BLOOD ORDERABLES Performing Organization Address City/[facility]/ZIP Code Phon e Number [facility] [address] [place] [address] [place] Hepatitis B surface antigen (07/14/2018 6:34 PM CDT) [facility] Method Time Signature Hep B Surface Nonreactive NR^Nonrea 07/18/2018 [facility] ctive 9:59 AM CDT [facility] Specimen Anatomical Collection Method Collection Time Receive d Time (Source) Location / / Volume Laterality Blood specimen 07/14/2018 6:34 PM 018 6:39 (specimen) CDT PM CDT Lamar Barragan MD LAB - BLOOD ORDERABLES Performing Organization Address City/[facility]/ZIP [facility] Phon e Number [address] [address] [place] documented in this encounter Visit Diagnoses Diagnosis [...] documented as of this encounter Care Teams Pharmacy Helper Relationship Specialty Start Date End Date Viri Gallardo, PCP - General Nurse Practitioner 06/29/17 04/14/20 MIXING MACHINE TENDER CORK ROD CLERICAL METHODS ANALYST [address] [facility] [place] [address] Viri Gallardo, PCP - Assigned PCP 09/12/17 12/13/18 MIXING MACHINE TENDER CORK ROD CLERICAL METHODS ANALYST [address] [facility] [place] [address] Viri Gallardo, Assigned PCP 09/12/1709/16 MIXING MACHINE TENDER CORK ROD CLERICAL METHODS ANALYST [address] [facility] [place] [address] documented as of this encounter
--- OUTSIDE RECORDS SUMMARY | 2022-09-07 11:59 | XMS_ITS | Encounter Summary ---
:1995 Author Organization [place] Address [address] [place] [address] Care Team Providers Name Role Phone Viri Gallardo APRN, CNP Primary Care Provider [phone] Viri Gallardo APRN ACID CORRECTION HAND Unavailable [phone] Ailyn Medina RN Unavailable Unavailable Viri Gallardo APRN ACID CORRECTION HAND Unavailable [phone] Reason for Visit Reason Comments skin infection Encounter Details Date Type Department Care Team Description 07/07/2018 - Emergency [facility] Wilmer Ibanez MD Cellulitis of lower 07/08/2018 [facility] leg Dept [place] [address] [facility] [address] [facility] [address] [address] [place] [address] [phone] (Wo rk) Social History Tobacco Use Types [...] NS 50 mL bag for PEDS (COMPLETED) 0245 (New Bag - Provider: Xuan Presley RN) 0031 (Stopped - Provider: Xuan Presley RN) STAT, 1 g, Intravenous, ONCE, On Wanda 06/12 04/27 at 2333, For 1 dose, Indications: cellulitis documented in this encounter Additional Health Concerns Assessment Noted Time PHQ-9 Depression Total Score: 15 04/08/2018 7:11 AM CD T documented as of this encounter Care Teams Business Line Controller Relationship Specialty Start Date End Date Viri Gallardo PCP - General Nurse Practitioner 06/29/17 04/14/20 DORIAN Nicole ACID CORRECTION HAND [address] [facility] [place] [address] Viri Gallardo PCP - Assigned PCP 09/12/17 12/13/18 DORIAN Nicole ACID CORRECTION HAND [address] [facility] [place] [address] Ailyn Medina, RN Clinic Medium Cycle Salesperson Primary Care - CC 07/08/18 07/08/18 Viri Gallardo Assigned PCP 09/12/17 09/16/19 DORIAN Nicole ACID CORRECTION HAND [address] [facility] [place] [address] documented as of this encounter
--- OUTSIDE RECORDS SUMMARY | 2022-09-07 11:59 | XMS_ITS | Encounter Summary ---
:1996 Author Organization [place] Address [address] [place] [address] Care Team Providers Name Role Phone Viri Gallardo APRN, CNP Primary Care Provider [phone] Viri Gallardo APRN SEAT COVER INSTALLER Unavailable [phone] Viri Gallardo APRN SEAT COVER INSTALLER Unavailable [phone] Encounter Details Date Type Department Care Team Description 09/16/2018 Telephone [facility] Viri Gallardo E[place] APRN SEAT COVER INSTALLER [address] [facility] [address] [facility] [address] [place] [address] [place] [address] [phone] Social History Tobacco Use Types Packs/Day Years [...] documented as of this encounter Care Teams Clinical Trial Coordinator Relationship Specialty Start Date End Date Viri Gallardo, PCP - General Nurse Practitioner 06/29/17 04/14/20 BULK SYSTEM OPERATOR[address] [place] [address] Viri Gallardo, PCP - Assigned PCP 09/12/17 12/13/[address] [place] [address] Viri Gallardo, Assigned PCP 09/12/1709/[address] [place] [address] documented as of this encounter
--- OUTSIDE RECORDS SUMMARY | 2022-09-07 11:59 | XMS_ITS | Encounter Summary ---
:1995 Author Organization [place] Address [address] [place] [address] Care Team Providers Name Role Phone Suhail Bar APRN, CNP Primary Care Provider [phone] Suhail Bar APRN, CNP Unavailable [phone] Suhail Bar APRN, CNP Unavailable [phone] Reason for Referral Mental Health Outpatient - Closed Specialty Diagnoses / Procedures Referred By Contact Refer red To Contact Diagnoses Moderate bipolar II disorder, most recent episode major depressive (H) Suhail Bar APRN CNP [address] [place] [address] [place] [address] Referral ID Status Reason Start Date Expiration Date Visits Requ ested Visits Authorized [id number] Closed 09/16/2018 09/16/2019 1 1 R AND 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 PARALEGAL 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 Encounter Details Date Type Department Care Team Description 09/16/2018 Office Visit [facility] Suhail Bar Papanicola ou smear of cervix with low grade squamous intraepithelial lesion (LGSIL) (Primary Dx); Clinic Jesu Nicole APRN Moderate bipolar II disorder , most recent episode major depressive (H); [address] [place] [address] Routine screening for STI (sexually hernandez smitted infection) [address] [place] [address] [place] [address] [phone] Social History Tobacco Use Types Packs/Day Years [...] Comments Blood Pressure 106/64 09/16/2018 1:23 PM LABOR AND EMPLOYMENT PARALEGAL Pulse 77 09/16/2018 1:23 PM LABOR AND EMPLOYMENT [employer] Temperature 36.7 ??C (98.1 ??F) 09/16/2018 1:23 PM LABOR AND EMPLOYMENT [employer]ALEGAL Respiratory Rate - - Oxygen Saturation 99% 09/16/2018 1:23 PM LABOR AND EMPLOYMENT PAR[employer]GAL Inhaled Oxygen Concentration - - Weight 54.7 kg (120 lb 9.6 oz) 09/16/2018 1:23 PM LABOR AND EMPLOYMENT [employer]GAL Height 160 cm (5' 3) 09/16/2018 1:23 PM LABOR AND EMPLOYMENT [employer] Body Mass Index 21.36 09/16/2018 1:23 PM LABOR AND EMPLOYMENT [employer] documented in this encounter Progress Notes Suhail Bar, DORIAN CLINICAL NURSE LEADER - 09/16/2018 1:20 PM CST SUBJECTIVE: Joel [...] or the safety of others? No PHQ-9 Greek PHQ-9 Any Language FAITH-7 Suicide Assessment Five-step Evaluation and Treatment (SAFE-T) ROS: const/psych/obstetrics gyn otherwise negative OBJECTIVE: BP 106/64 (BP Location: [...] Bright affect. Appropriate mentation and speech. ASSESSMENT/PLAN: (R89.042) Papanicolaou smear of cervix with low grade [...] with any questions -She agrees to call [facility] today to get set up with med management -Crisis resources provided. Contracted for safety and discussed safety action plan. (Z11.3) Routine screening for STI (sexually transmitted infection) Plan: NEISSERIA GONORRHOEA PCR, CHLAMYDIA TRACHOMATIS PCR MAHENDRA Erickson-GENE. R AND EMPLOYMENT [employer]GAL documented in this encounter Plan of Treatment Scheduled Referrals Name Type Priority Associated Diagnoses Order S lainey MENTAL [facility] REFERRAL - Referral Routine Moderate bipolar II [...] Res ults for this GONORRHOEAE PCR PM LABOR AND EMPLOYMENT [employer] STI (sexually procedure a re in transmitted infection) the r esults section. CHLAMYDIA Routine 09/16/2018 1:45 Routine screening for Res ults for this TRACHOMATIS PCR PM LABOR AND EMPLOYMENT [employer] STI (sexually procedure a re in transmitted infection) the r esults section. PAP IMAGED THIN Routine 09/16/2018 1:44 Papanicolaou smear of Results for this LAYER SCREEN PM LABOR AND EMPLOYMENT [employer] cervix with low grade proced ure are in squamous the results intraepithelial lesion secti on. (LGSIL) documented in this encounter Results CHLAMYDIA TRACHOMATIS PCR (09/16/2018 1:45 PM LABOR AND EMPLOYMENT PARALEGAL) [facility] Method Time Signature Specimen Cervix 09/16/2018 [place] Description 3:41 PM LABOR AND EMPLOYMENT PARALEGAL [facility] Chlamydia Negative NEG^Negat 09/18/2018 [facility] Trachomatis PCR herrera 2:25 PM LABOR AND EMPLOYMENT PARALEGAL [facility] Comment: Negative for C. trachomatis rRNA by hernandez scription mediated amplification. A negative result by supervisor fur dressing media lainey amplification does not preclude the presence of C. trachomatis infection because results are dependent on proper and adequate collection, absence of inhibitors, and sufficient rRNA to be detected. Specimen Anatomical Collection Method Collection Time Receive d Time (Source) Location / / Volume Laterality Cervical swab 09/16/2018 1:45 PM 09/16/20 18 3:41 (specimen) LABOR AND EMPLOYMENT [employer] PM [employer] EMPLOYMENT [employer] Suhail Bar APRN CLINICAL NURSE LEADER LAB - MICRO GENERAL ORD ERABLES Performing Organization Address City/State/ZIP Code Phon e Number [address] [address] [facility] JESU [address] [place] [address] NEISSERIA GONORRHOEA PCR (09/16/2018 1:45 PM LABOR AND EMPLOYMENT PAR[employer]) Analysis Performed At Patho logist Time Signature Specimen Cervix 09/16/2018 [place] Descrip 3:41 PM LABOR AND EMPLOYMENT PARALEGAL [facility] N Gonorrhea Negative NEG^Negati 09/18/2018 [facility] ve 2:25 PM LABOR AND EMPLOYMENT PARALEGAL [facility] Comment: Negative for N. gonorrhoeae rRNA by hernandez scription mediated amplification. A negative result by supervisor fur dressing media lainey amplification does not preclude the presence of N. gonorrhoeae infection because results are dependent on proper and adequate collection, absence of inhibitors, and sufficient rRNA to be detected. Specimen Anatomical Collection Method Collection Time Receive d Time (Source) Location / / Volume Laterality Cervical swab 09/16/2018 1:45 PM 09/16/20 18 3:41 (specimen) LABOR AND EMPLOYMENT PAR[employer]GAL PM [employer] EMPLOYMENT [employer] Suhail Bar STONER HAND CLINICAL NURSE LEADER LAB - MICRO GENERAL ORD ERABLES Performing Organization Address City/State/ZIP Code Phon e Number [address] [address] Pap imaged thin layer screen only - recommended age 21 - 24 years (09/16/2018 1:44 PM LABOR AND EMPLOYMENT [employer]) Component Value Ref Test Analysis Performed At [facility] Range Method Time Signature PAP NIL COPATH Copath Report COPATH Patient Name: JOEL AMOS MR#: [id number] Specimen #: [id number] Collected: 09/16/2018 Received: 09/19/2018 Reported: 09/20/2018 14:55 [...] Cole, CT (ASCP) Processed and screened at [facility] CLINICAL HISTORY: LMP: 08/28/2018 Previous LGSIL Date of Last Pap: 08/26/2017, History of positive HPV: last year, Papanicolaou Test Limitations: ??Cervical cytology is a sc reening test with limited sensitivity; regular screening is critical for cancer prevention; Pap tests are p rimarily effective for the diagnosis/prevention of squamous cell carcinoma, not adenocarcinomas or other cancer s. TESTING LAB LOCATION: [facility] [address] [place], [place] ??[address] COLLECTION SITE: Client: ??[facility] Location: [facility] (R) Specimen (Source) Anatomical Collection Method Collection Time Re ceived Time Location / / Volume Laterality Cytologic 09/16/2018 1:44 09/19/2018 material PM LABOR AND EMPLOYMENT [employer] 11:23 AM LABOR AND EMPLOYMENT [employer] (specimen) Suhail Bar STONER HAND CLINICAL NURSE LEADER LAB - [facility] CLINICAL S [place] Performing Organization Address City/State/ZIP [...] documented as of this encounter Care Teams Pick Up Operator Relationship Specialty Start Date End Date Suhail Bar, PCP - General Nurse Practitioner 06/29/17 04/14/20 STONER HAND CLINICAL NURSE LEADER [address] [facility] [place] [id number] Suhail Bar, PCP - Assigned PCP 09/12/17 12/13/18 STONER HAND CLINICAL NURSE LEADER [address] [facility] [place] [address] Suhail Bar, Assigned PCP 09/12/1709/16 STONER HAND CLINICAL NURSE LEADER [address] [facility] [place] [address] documented as of this encounter
--- OUTSIDE RECORDS SUMMARY | 2022-09-07 11:59 | XMS_ITS | Encounter Summary ---
:1995 Author Organization [facility] Address [address] [place] [address] Care Team Providers Name Role Phone Viri Gallardo APRN, CNP Primary Care Provider [phone] Viri Gallardo APRN ORCHID HAND Unavailable [phone] Reason for Visit Reason Comments Urgent Care Pharyngitis st, headache x5-6 days, know n strep exposure Encounter Details Date Type Department Care Team Description 12/23/2018 Office Visit [facility] Maxim Yost M D Throat pain (Primary Urgent Care [place] 2019 E Dx) [address] [facility] [address] [place], [place] [address] [address] [place] [address] Social History Tobacco Use Types [...] Body Mass Index 20.16 09/16/2018 1:23 PM CYBER SECURITY ANALYST documented in this encounter Patient Instructions Patient [...] Component Value Ref Test Analysis Performed At [facility] gist Range Method Time Signature Specimen Throat [facility] FRED Culture Micro No beta 12/24/2018 [place] hemolytic 10:06 AM CLINICS Streptococcus CDT FRED Group A isolated Specimen Anatomical Collection Method Collection Time Receive d Time (Source) Location / / Volume Laterality Specimen from 12/23/2018 9:45 AM 12/24/19 19 9:47 throat CDT AM CDT (specimen) Maxim Yost MD LAB - MICRO GENERAL ORDERABL ES Performing Organization Address City/State/ZIP Code Phon e Number [facility] FRED [address] [place] [address] Rapid strep screen (12/23/2018 9:13 AM CDT) Component Value Ref Test Analysis Performed At [facility] wooju Range Method Time Signature Specimen Throat [facility] FR[facility] Rapid Strep A NEGATIVE: No 12/23/2018 [place] Screen Group A 9:46 AM CDT CLINICS streptococcal FRED antigen detected by immunoassay, await culture report. Specimen Anatomical Collection Method Collection Time Receive d Time (Source) Location / / Volume Laterality Specimen from 12/23/2018 9:13 AM 12/24/19 9:14 throat CDT AM CDT (specimen) Maxim Yost MD LAB - MICRO GENERAL ORDERABL ES Performing Organization Address City/State/ZIP Code Phon e Number [facility] FRED [address] [place] [address] [place] [address] documented in this encounter Visit Diagnoses Diagnosis Throat pain - Primary documented in this encounter Additional Health Concerns Assessment Noted Time PHQ-9 Depression Total Score: 15 09/16/2018 1:27 PM CS T documented as of this encounter Care Teams Tricot Knitter Relationship Specialty Start Date End Date Viri Gallardo APRN ORCHID HAND PCP - General Nurse Practitioner 06/29/17 04/14/20 [address] [facility] [place] [address] iVri Gallardo APRN ORCHID HAND Assigned PCP 09/12/17 09/16/[address] [place] [address] [place] [address] documented as of this encounter
--- OUTSIDE RECORDS SUMMARY | 2022-09-07 11:59 | XMS_ITS | Encounter Summary ---
:1995 Author Organization [place] Address [address] [place] [address] Care Team Providers Name Role Phone Viri Gallardo APRN, CNP Primary Care Provider [phone] Viri Gallardo APRN CAGE FIGHTER Unavailable [phone] Viri Gallardo APRN CAGE FIGHTER Unavailable [phone] Encounter Details Date Type Department Care Team Description 07/04/[address] [facility] [place] LMF T Moderate bipolar Documentation Services [facility] FV COUNSEL[address] CT R II disorder, most [place] [address] [facility] recent episode [address] [place], [place] major depressi [facility] [address] (H) (Primary Dx) [place], [place] [phone] [address] (Work) [phone] Social History Tobacco Use Types Packs/Day Years [...] including: Client consented to co-developed safety plan. [facility]'s safety and risk management plan was completed. Client agreed to use safety plan should any safety concerns arise. A copy was given to the patient. Referred To: If needed client was provided contact information to these 3 providers: [facility], [facility] and [facility]. ADRIANA Palacios, LATH HAND 07/04/2018 documented in this encounter Plan of Treatment Not on filedocumented as of this encounter Visit Diagnoses Diagnosis Moderate bipolar II disorder, most recen t episode major depressive (H) - Primary Other bipolar disorders documented in this encounter Additional Health Concerns Assessment Noted Time PHQ-9 Depression Total Score: 15 04/08/2018 7:11 AM CD T documented as of this encounter Care Teams Varsity Baseball Coach Relationship Specialty Start Date End Date Viri Gallardo, PCP - General Nurse Practitioner 06/29/17 04/14/[address] [place] [address] Viri Gallardo, PCP - Assigned PCP 09/12/17 12/13/[address] [place] [address] Viri Gallardo, Assigned PCP 09/12/1709/[address] [place] [address] documented as of this encounter
--- OUTSIDE RECORDS SUMMARY | 2022-09-07 11:59 | XMS_ITS | Encounter Summary ---
:1995 Author Organization [place] Address [address] [place] [address] Care Team Providers Name Role Phone Viri Gallardo APRN, CNP Primary Care Provider [phone] Viri Gallardo APRN FRUIT GRADING SUPERVISOR Unavailable [phone] Reason for Visit Reason Comments Eye Pain pt c/o eye pain since this a m, swelling. 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 Maher of the Medication Technician service regarding patient's presentation, findings, and plan of care. 1220 The patient was sent for a MR brain while in the emergency department, results above. [address] Maher of the Medication Technician service regarding patient's presentation, findings, and plan [...] discuss the presentation with Dr. Maher, on-call shot core drill operator who agreedwith plan for contrasted MRI to [...] see her at 8 AM at the [facility]. Return precautions were reviewed including increasing eye [...] documented as of this encounter Care Teams Prop Setter Relationship Specialty Start Date End Date Viri Gallardo APRN FRUIT GRADING SUPERVISOR PCP - General Nurse Practitioner 06/29/17 04/14/[address] [place] [address] [place] [address] Viri Gallardo APRN FRUIT GRADING SUPERVISOR Assigned PCP 09/12/17 09/16/[address] [place] [address] [place] [address] documented as of this encounter
--- OUTSIDE RECORDS SUMMARY | 2022-09-07 11:59 | XMS_ITS | Encounter Summary ---
:1996 Author Organization [facility] Address [address] [place] [address] Care Team Providers Name Role Phone Viri Gallardo APRN, CNP Primary Care Provider [phone] Viri Gallardo APRN ECOLOGICAL TECHNICAL OFFICER Unavailable [phone] Encounter Details Date Type Department Care Team Description 12/28/2018 Orders Only [facility] for prophylactic [facility] chemotherapy (Primary Dx) [address] [facility] [address] [place] [address] Social History Tobacco Use Types [...] A1C 5.5 0 - 5.6 % 12/28/2018 [place] 8:26 AM CDT [facility] Comment: Normal <5.7% Prediabetes 5.7-6.4% ??Diab etes [...] [facility] [address] [place] [address] TSH (12/28/2018 7:58 AM CDT) athologist Signature TSH 1.13 0.40 - 4.00 12/28/2018 [facility] mU/L 1:[address] [facility] Specimen Anatomical Collection Method Collection Time Receive d Time (Source) Location / / Volume Laterality Blood specimen 12/28/2018 7:58 AM 019 8:00 (specimen) CDT AM CDT Terri Patel NP LAB - BLOOD ORDERABLES Performing Organization Address City/State/ZIP Code Phon e Number [facility] [address] [place] [address] (ABNORMAL) Comprehensive metabolic panel (12/28/2018 7:58 AM CDT) [facility] gist Method Time Signature Sodium 139 133 - 144 12/28/2018 [facility] mmol/L 1:[address] [facility] Potassium 4.5 3.4 - 5.3 12/28/2018 [facility] mmol/L 1:[address] [facility] Chloride 110 (H) 94 - 109 12/28/2018 [facility] mmol/L 1:[address] [facility] Carbon Dioxide 26 20 - 32 12/28/2018 [facility] mmol/L 1:[address] [facility] Anion Gap 3 3 - 14 12/28/2018 [facility] mmol/L 1:[address] [facility] Glucose 99 70 - 99 12/28/2018 [facility] mg/dL 1:[address] [facility] Urea Nitrogen 12 7 - 30 12/28/2018 [facility] mg/dL 1:32 PM T [facility] Creatinine 0.81 0.52 - 12/28/2018 [facility] 1.04 mg/dL 1:[address] [facility] GFR Estimate >90 >60 12/28/2018 [place] mL/min/{1. 1:32 PM CDT CLINICS 73_m2} [facility] Comment: Non GFR Calc Starting 09/27/2018, serum creatinine ba sed estimated GFR (eGFR) will be calculated using the Chronic Kidney Dise [facility] Epidemiology Collaboration (CKD-EPI) equation. GFR Estimate If >90 >60 mL/min/{1.73_m2} 12/28/2018 1: 32 PM [facility] Black T [facility] Comment: GFR Calc Starting 09/27/2018, serum creatinine ba sed estimated GFR (eGFR) will be calculated using the Chronic Kidney Dise [facility] Epidemiology Collaboration (CKD-EPI) equation. Calcium 9.1 8.5 - 10.1 12/28/2018 1:32 PM [facility] mg/dL T [facility] Bilirubin Total 0.5 0.2 - 1.3 12/28/2018 1:33 PM [facility] [place] mg/dL CDT HOSPITAL Albumin 4.0 3.4 - 5.0 g/dL 12/28/2018 1:33 PM [facility] [place] CDT HOSPITAL Protein Total 7.6 6.8 - 8.8 g/dL 12/28/2018 1:33 PM [facility] Alkaline Phosphatase 37 (L) 40 - 150 U/L 12/28/2018 1:33 PM [facility] ALT 25 0 - 50 U/L 12/28/2018 1:33 PM [facility] AST 14 0 - 45 U/L 12/28/2018 1:33 PM [facility] Specimen Anatomical Collection Method Collection Time Receive d Time (Source) Location / / Volume Laterality Blood specimen 12/28/2018 7:58 AM 019 8:00 (specimen) CDT AM CDT Terri Patel NP LAB - BLOOD ORDERABLES Performing Organization Address City/State/ZIP Code Phon e Number [facility] [address] [place] [address] [facility] [address] [place], [place] [address] [facility] [address] [place] [address], U [phone] Drug Screen Comprehensive, Urine w/o Reported Meds (Pain Care Package) (12/28/2018 7:58 AM CDT) athologist Signature Comprehen Drug FINAL 01/01/2019 [place] Analysis UR 7:28 AM CDT CLINICS [place] [...] consultation, please call . Analysis performed by [employer] [place] [address] Specimen Anatomical Collection Method Collection Time Receive d Time (Source) Location / / Volume Laterality Urine specimen 12/28/2018 7:58 AM 019 8:00 (specimen) CDT AM CDT Terri Patel SCIENTIFIC PUBLICATIONS EDITOR LAB - URINE ORDERABLES Performing Organization Address City/[facility]/ZIP Code Phon e Number [facility] [address] [place] [address] (ABNORMAL) Lipid panel reflex to direct LDL Fasting (12/28/2018 7:58 AM CDT) [facility] Method Time Signature Cholesterol 155 <200 12/28/2018 [place] mg/dL 1:33 PM CDT [facility] Triglycerides 144 <150 12/28/2018 [place] mg/dL 1:36 PM CDT [facility] HDL Cholesterol 46 (L) >49 mg/dL 12/28/2018 [place] 1:34 PM CDT [facility] LDL Cholesterol 80 <100 12/28/2018 [place] Calculated mg/dL 1:36 PM CDT [facility] Comment: Desirable: <100 mg/dl Non HDL Cholesterol 109 <130 mg/dL 12/28/2018 1:[address] [facility] Specimen Anatomical Collection Method Collection Time Receive d Time (Source) Location / / Volume Laterality Blood specimen 12/28/2018 7:58 AM 019 8:00 (specimen) CDT AM CDT Terri Patel SCIENTIFIC PUBLICATIONS EDITOR LAB - BLOOD ORDERABLES Performing Organization Address City/State/ZIP Code Phon e Number [facility] [address] [place], [place] [address] [facility] [address] [place] [address], [place] [phone] (ABNORMAL) CBC with platelets differential (12/28/2018 7:58 AM CDT) [facility] Method Time Signature WBC 11.1 (H) 4.0 [...] Automated 12/28/2018 [facility] Method 8:27 AM CDT [facility] [place] Specimen Anatomical Collection Method Collection Time Receive d Time (Source) Location / / Volume Laterality Blood specimen 12/28/2018 7:58 AM 019 8:00 (specimen) CDT AM CDT Terri Paetl NP LAB - BLOOD ORDERABLES Performing Organization Address City/State/ZIP Code Phon e Number [facility] [place] [address] [facility] [place] [address] documented in this encounter Visit Diagnoses Diagnosis Need for prophylactic chemotherapy - Wendy snyder Need for other prophylactic chemotherapy documented in this encounter Additional Health Concerns Assessment Noted Time PHQ-9 Depression Total Score: 15 09/16/2018 1:27 PM CS T documented as of this encounter Care Teams Furniture Duster Relationship Specialty Start Date End Date Viri Gallardo APRN ECOLOGICAL TECHNICAL OFFICER PCP - General Nurse Practitioner 06/29/17 04/14/20 [address] [facility] [place] [address] Viri Gallardo APRN ECOLOGICAL TECHNICAL OFFICER Assigned PCP 09/12/17 09/16/19 [address] [facility] [place] [address] documented as of this encounter
--- OUTSIDE RECORDS SUMMARY | 2022-09-07 11:59 | XMS_ITS | Encounter Summary ---
:1995 Author Organization [facility] Address [address] [place] [address] Care Team Providers Name Role Phone Viri Gallardo APRN, CNP Primary Care Provider [phone] Viri Gallardo APRN ZINC PLATER Unavailable [phone] Viri Gallardo APRN, CNP Unavailable [phone] Reason for Visit Reason Comments Sleep Problem Encounter Details Date Type Department Care Team Description 06/30/2018 Office Visit [facility] Johnathon Wu Other i nsomnia (Primary Dx); Clinic [facility] Schofield MD examination or test, unconfirmed; [address] Non- intractable vomiting with nausea, unspecified vomiting type [address] [facility] [address] [place], [place] [address] [phone] (Wo rk) Social History Tobacco Use Types [...] without sleeping Date Last Reviewed: 08/29/2015 ?? [phone] [employer]. [address] [place] [address], [place] [address]. All rights reserved. This information is not [...] sleep.?? Individual Therapy Paul Mccartney, PhD Insomnia Director Regulatory Affairs [facility] ?? [facility]: [phone] ?? [facility]: [phone] Group Therapy Dates and times to be announced. Online Programs ?? www.[employer] (pronounced shut eye). There is a fee for this program. Enter the code ???[facility]?? if you decide to enroll in this program. ?www.[employer] (pronounced sleep ee oh). There is a fee for this program. Enter the code ???[facility]?? if you decide to enroll in this [...] relax. This list is for information only. [facility] is notresponsible for the quality of services or the actions of any person or organization Progressive Muscle Relaxation (PMR): ?? http://www.[employer]/ascnoiimkaa-gkyisj-fzshsvkbrx-exercise.html ?? http://studentsupport.[facility]/counseling/resources/self-help/relaxat ric-fpg-ztflcy-management/ Deep Breathing Exercises: ?? http://www.[employer]/breathing-awareness.html Meditation:? www.[employer] ?? www.uqj-ompdxp-mxqgmwdktt-site.com You may have to pay for some of these resources. Guided Imagery: ?? http://www.[employer]/ejqgxm-eycnnvc-pymbntl.html ?? http://Cnekt/library/kdauwsicgr-qrgyzp-wcnqlok/ Counseling / Behavioral Health [facility] Visit www.localbacon.AdYapper or call [phone] to find a clinic close to you.?? [...] as medical expenses. Check with your tax adjuster. These programs and publications are not affiliated in any way with [employer]. ?? 7313-6710 [employer]. [address] [place] [address]. All rights reserved. This information is not [...] is completely dark. She puts on a [place] playlist with natural sounds like rain. Sometimes [...] week). 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 She has plenty of social support in the way of her entire family who lives in [place]. Her grandmother, for instance, sometimes helps with her two children. She says her anxiety has been well-controlled on the hydroxyzine. She plans to start seeing a new therapist at [facility] in [place] on July 14. She was previously seeing a therapist regularly at [facility] (most recently 2 weeks ago), but she [...] Urine test - NEGATIVE - Called patient ([phone]) to notify her of result ~10:45 AM [...] MD PGY-1 Internal Medicine/Pediatrics Pager , 06/30/2018 [facility] Patient was seen and staffed with the attending physician, Dr. Rubi, who agrees with the assessment and plan as outlined above. Attestation: I have seen patient and reviewed the documentation from Dr. Wu and discussed the findings with Dr. Wu. I agree with the documentation of Dr. Wu. Viri Rubi MD Internal Medicine/Pediatrics [facility] documented in this encounter Plan of Treatment [...] Signature Beta HCG Qual Negative NEG^Negati 06/30/2018 [place] [facility] Urine ve 10:40 AM CDT [facility] [place] Specimen Anatomical Collection Method Collection Time Receive d Time (Source) Location / / Volume Laterality Urine specimen 06/30/2018 10:35 8 (specimen) AM CDT 10:37 AM CDT Viri Rubi MD LAB - URINE ORDERABLES Performing Organization Address City/State/ZIP Code Phon e Number [facility] [place] [address] [facility] [place] [address] [phone] documented in this encounter Visit Diagnoses Diagnosis Other insomnia - Primary examination or test, unconfirmed Non-intractable vomiting with nausea, un specified vomiting type documented in this encounter Additional Health Concerns Assessment Noted Time PHQ-9 Depression Total Score: 15 04/08/2018 7:11 AM CD T documented as of this encounter Care Teams Long Wall Mining Machine Tender Relationship Specialty Start Date End Date Viri Gallardo, PCP - General Nurse Practitioner 06/29/17 04/14/20 RAILROAD WHEELS AND AXLE INSPECTOR ZINC PLATER [address] [facility] [place] [address] Viri Gallardo, PCP - Assigned PCP 09/12/17 12/13/18 RAILROAD WHEELS AND AXLE INSPECTOR ZINC PLATER [address] [facility] [place] [address] Viri Gallardo, Assigned PCP 09/12/1709/16 RAILROAD WHEELS AND AXLE INSPECTOR ZINC PLATER [address] [facility] [place] [address] documented as of this encounter
--- OUTSIDE RECORDS SUMMARY | 2022-09-07 11:59 | XMS_ITS | Encounter Summary ---
:1995 Author Organization [place] Address [address] [place] [address] Care Team Providers Name Role Phone Viri Gallardo APRN, CNP Primary Care Provider [phone] Viri Gallardo APRN BURRING WHEEL OPERATOR Unavailable [phone] Viri Gallardo APRN, CNP Unavailable [phone] Reason for Visit Reason Onset Date Comments Medication Request 09/15/2018 Encounter Details Date Type Department Care Team Description 09/15/2018 Telephone [facility] Viri Gallardo ication Request Jesu Nicole APRN BURRING WHEEL OPERATOR [address] [place] [address] [facility] [address] [place] [address] [place] [phone] Social History Tobacco Use Types Packs/Day Years [...] pt an appt on 09/16/18 with Viri Galladro. Pt is in agreement with plan. Laura Delgadillo, RN USION ANALYST Telephone Encounter - Jaz Oakes - 09/15/2018 10:16 AM CST Reason for call: Other Patient called regarding (reason for call): prescription Additional comments: Patient wants to know if it is okay to restart her wellbutrin. Phone number to reach patient: Home number on file [phone] (home) Best Time: any Can we leave a detailed message on this number? YES USION ANALYST documented in this encounter Plan of Treatment Not on filedocumented as of this encounter Visit Diagnoses Not on filedocumented in this encounter Additional Health Concerns Assessment Noted Time PHQ-9 Depression Total Score: 15 04/08/2018 7:11 AM CD T documented as of this encounter Care Teams Passenger Locomotive Engineer Relationship Specialty Start Date End Date Viri Gallardo, PCP - General Nurse Practitioner 06/29/17 04/14/20 [place] [id number] [facility] [place] [address] Viri Gallardo, PCP - Assigned PCP 09/12/17 12/13/18 PREP ROOM SUPERVISOR BURRING WHEEL OPERATOR [address] [facility] [place] [phone] Viri Gallardo, Assigned PCP 09/12/1709/16 PREP ROOM SUPERVISOR BURRING WHEEL OPERATOR [facility]5 [facility] [place] [address] documented as of this encounter
--- OUTSIDE RECORDS SUMMARY | 2022-09-07 11:59 | XMS_ITS | Encounter Summary ---
:1995 Author Organization [place] Address [address] [place] [address] Care Team Providers Name Role Phone Viri Gallardo APRN, CNP Primary Care Provider [phone] Viri Gallardo APRN, CNP Unavailable [phone] Viri Gallardo APRN, CNP Unavailable [phone] Reason for Visit Reason Comments Medication Refill varenicline (CHANTIX) 1 MG t ablet (Discontinued) Encounter Details Date Type Department Care Team Description 08/21/2018 Refill [facility] Viri Gallardo Medication Refill Clinic [facility] Nicole APRN CNP (varenicline (CHANTIX) 1 [address] [place] [address] [facility] (Discontinued)) [address] [place] [address] [place] [address] [phone] Social History Tobacco Use Types Packs/Day Years [...] 08/24/2018 10:35 AM CST Prescription approved per [facility] Refill Protocol. Ivonne Norman RN TRANSFERRER Telephone Encounter - Estrella Raymond - 08/23/2018 [...] test on file in past 12 months TRANSFERRER documented in this encounter Plan of Treatment Not on filedocumented as of this encounter Visit Diagnoses Diagnosis Encounter for tobacco use cessation coun seling documented in this encounter Additional Health Concerns Assessment Noted Time PHQ-9 Depression Total Score: 15 04/08/2018 7:11 AM CD T documented as of this encounter Care Teams Facility Maintenance Manager Relationship Specialty Start Date End Date Viri Gallardo, PCP - General Nurse Practitioner 06/29/17 04/14/20 OUT PATIENT THERAPIST ASSEMBLY RIVETER [address] [place] [address] Viri Gallardo, PCP - Assigned PCP 09/12/17 12/13/18 OUT PATIENT THERAPIST ASSEMBLY RIVETER [address] [facility] [place] [address] Viri Gallardo, Assigned PCP 09/12/1709/16 OUT PATIENT THERAPIST ASSEMBLY RIVETER [address] [facility] [place] [address] documented as of this encounter
--- OUTSIDE RECORDS SUMMARY | 2022-09-07 11:59 | XMS_ITS | Encounter Summary ---
:1995 Author Organization [place] Address [address] [place] [address] Care Team Providers Name Role Phone Viri Gallardo APRN, CNP Primary Care Provider [phone] Viri Gallardo APRN, CNP Unavailable [phone] Encounter Details Date Type Department Care Team [...] documented as of this encounter Care Teams Personal Computer Network Analyst Relationship Specialty Start Date End Date Viri Gallardo APRN CNP PCP - General Nurse Practitioner 06/29/17 04/14/[address] [facility] [place] [address] Viri Gallardo APRN CNP Assigned PCP 09/12/17 09/16/[address] [facility] [place] [address] documented as of this encounter
--- OUTSIDE RECORDS SUMMARY | 2022-09-07 11:59 | XMS_ITS | Encounter Summary ---
:1995 Author Organization [place] Address [address] [place] [address] Care Team Providers Name Role Phone Viri Gallardo APRN, CNP Primary Care Provider [phone] Viri Gallardo APRN, CNP Unavailable [phone] Viri Gallardo APRN, CNP Unavailable [phone] Reason for Visit Reason Onset Date Comments Patient Reminder 09/02/2018 Past due for pap fol low up Encounter Details Date Type Department Care Team Description 09/02/2018 Telephone [facility] [facility] Viri Gallardo Patient Reminder (Past Center Jesu Nicole APRN CNP due for pap follow up) [address] [facility] [address] [place], [place] [address] [place] [phone] (Wo rk) Social History Tobacco Use Types [...] any questions or to schedule Padmini Solis, Fellmongery Worker Pap Tracking ITUTION DIRECTOR documented in this encounter Plan of Treatment Not on filedocumented as of this encounter Visit Diagnoses Not on filedocumented in this encounter Additional Health Concerns Assessment Noted Time PHQ-9 Depression Total Score: 15 04/08/2018 7:11 AM CD T documented as of this encounter Care Teams Punch Box Tender Relationship Specialty Start Date End Date Viri Gallardo, PCP - General Nurse Practitioner 06/29/17 04/14/20 AUTO SUSPENSION AND STEERING MECHANIC SPECIAL EFFECTS ARTIST [address] [facility] [place] [address] Viri Gallardo, PCP - Assigned PCP 09/12/17 12/13/18 AUTO SUSPENSION AND STEERING MECHANIC SPECIAL EFFECTS ARTIST [address] [place] [address] [place] [address] Viri Gallardo, Assigned PCP 09/12/1709/16 AUTO SUSPENSION AND STEERING MECHANIC SPECIAL EFFECTS ARTIST [facility] [place] [address] documented as of this encounter
--- OUTSIDE RECORDS SUMMARY | 2022-09-07 11:59 | XMS_ITS | Encounter Summary ---
:1995 Author Organization [place] Address [address] [place] [address] Care Team Providers Name Role Phone Viri Gallardo APRN, CNP Primary Care Provider [phone] Viri Gallardo APRN, CNP Unavailable [phone] Encounter Details Date Type Department Care Team [...] as of this encounter Care Teams Manager Winter Relationship Specialty Start Date End Date Viri Gallardo APRN CNP PCP - General Nurse Practitioner 06/29/17 04/14/20 [address] [facility] [place] [address] Viri Gallardo APRN CNP Assigned PCP 09/12/17 09/16/[address] [place] [address] documented as of this encounter
--- OUTSIDE RECORDS SUMMARY | 2022-09-07 11:59 | XMS_ITS | Encounter Summary ---
:1995 Author Organization [place] Address [address] [place] [address] Care Team Providers Name Role Phone Viri Gallardo APRN, CNP Primary Care Provider [phone] Viri Gallardo APRN UNHAIRER Unavailable [phone] Viri Gallardo APRN, CNP Unavailable [phone] Reason for Visit Reason Onset Date Comments Call Back 06/28/2018 Patient call Encounter Details Date Type Department Care Team Description 06/28/2018 Telephone [facility] Viri Gallardo Call Back (Patient Clinic Jesu Nicole APRN CNP call) [address] [facility] [address] [place] [address] [place] [id number] [phone] Social History Tobacco Use Types Packs/Day Years [...] to reach patient: Home number on file [phone] (home) Best Time: shazia Can we leave a detailed message on this number? unknown documented in this encounter Plan of Treatment Not on filedocumented as of this encounter Visit Diagnoses Not on filedocumented in this encounter Additional Health Concerns Assessment Noted Time PHQ-9 Depression Total Score: 15 04/08/2018 7:11 AM CD T documented as of this encounter Care Teams Nurse Coordinator Relationship Specialty Start Date End Date Viri Gallardo, PCP - General Nurse Practitioner 06/29/17 04/14/[address] [place] [id number] Viri Gallardo, PCP - Assigned PCP 09/12/17 12/13/[address] [facility] UNHAIRER [address] [facility] [place] [address] Viri Gallardo, Assigned PCP 09/12/1709/16 [facility] [address] [facility] [place] [address] documented as of this encounter
--- OUTSIDE RECORDS SUMMARY | 2022-09-07 11:59 | XMS_ITS | Encounter Summary ---
:1995 Author Organization [place] Address [address] [place] [address] Care Team Providers Name Role Phone Viri Gallardo APRN, CNP Primary Care Provider [phone] Viri Gallardo APRN MILLER HEAD ASSISTANT WET PROCESS Unavailable [phone] Viri Gallardo APRN, CNP Unavailable [phone] Reason for Visit Reason Comments Urgent Care Cold Symptoms ears pain x 3 weeks, left ea r popped today, muffled sound, black stool x 1 week Encounter Details Date Type Department Care Team Description 08/16/2018 Office Visit [facility] Josse Hassan [place] [facility] Jesu Urbano PA-C pharyngitis (Primary [address] [facility] Dx) [facility] [address] [place] [address] [place] [phone] Social History Tobacco Use Types Packs/Day [...] Comments Blood Pressure 104/60 08/16/2018 3:50 PM DIRECTOR OF INTERCOLLEGIATE ATHLETICS Pulse 77 08/16/2018 3:50 PM DIRECTOR OF INTERCOLLEGIATE ATHLETICS Temperature 36.8 ??C (98.3 ??F) 08/16/2018 3:50 PM DIRECTOR OF INTERCOLLEGIATE ATHLETICS Respiratory Rate - - Oxygen Saturation 98% 08/16/2018 3:50 PM DIRECTOR OF INTERCOLLEGIATE ATHLETICS Inhaled Oxygen Concentration - - Weight - - Height - - Body Mass Index - - documented in this encounter Patient Instructions Patient InstructionsJosse Hassan PA-C - 08/16/2018 3:40 PM DIRECTOR OF INTERCOLLEGIATE ATHLETICS Images from the original note were not [...] humidified air to open blocked nasal passages. fleet maintenance manager a hot shower or use a [...] sore throat Date Last Reviewed: 09/10/2016 ?? [id number] [employer]. [address] [place] [address]. All rights reserved. This information is not intended as a substitute for professional medical care. Always follow your healthcare professional's instructions. CTOR OF INTERCOLLEGIATE ATHLETICS documented in this encounter Progress Notes Josse [...] humidified air to open blocked nasal passages. fleet maintenance manager a hot shower or use a [...] sore throat Date Last Reviewed: 09/10/2016 ?? 4220-0210 [employer]. [address] [place] [address], [place] [address]. All rights reserved. This information is not intended as a substitute for professional medical care. Always follow your healthcare professional's instructions. CTOR OF INTERCOLLEGIATE ATHLETICS documented in this encounter Plan of Treatment Not on filedocumented as of this encounter Procedures Procedure Name Priority Date/Time Associated Diagnosis Comme nts RAPID STREP SCREEN Routine 08/16/2018 4:20 PM Acute streptococ ashley Results for this THROAT SWAB DIRECTOR OF INTERCOLLEGIATE ATHLETICS pharyngitis procedure are i n the results section. documented in this encounter Results (ABNORMAL) Strep, Rapid Screen (08/16/2018 4:20 PM DIRECTOR OF INTERCOLLEGIATE ATHLETICS) Component Value Ref Test Analysis Performed At [facility] Range Method Time Signature Specimen Throat [facility] JESU Rapid Strep A POSITIVE: Group 08/16/2018 [place] Screen A Streptococcal 4:39 PM DIRECTOR OF INTERCOLLEGIATE ATHLETICS CLINICS antigen detected JESU by immunoassay. (A) Specimen Anatomical Collection Method Collection Time Receive d Time (Source) Location / / Volume Laterality Specimen from 08/16/2018 4:20 PM 08/16/20 18 4:23 throat DIRECTOR OF INTERCOLLEGIATE ATHLETICS PM DIRECTOR OF INTERCOLLEGIATE ATHLETICS (specimen) Josse Hassan PA-C LAB - MICRO GENERAL MAME FINNEY Performing Organization Address City/State/ZIP Code Phon e Number [facility] JESU [address] [facility] Jesu [place] [address] [phone] documented in this encounter Visit Diagnoses Diagnosis Acute streptococcal pharyngitis - Primar y Streptococcal sore throat documented in this encounter Additional Health Concerns Assessment Noted Time PHQ-9 Depression Total Score: 15 04/08/2018 7:11 AM CD T documented as of this encounter Care Teams Certified Prosthetist Vice President Relationship Specialty Start Date End Date Viri Gallardo PCP - General Nurse Practitioner 06/29/17 04/14/[address] [place] [address] Viri Gallardo, PCP - Assigned PCP 09/12/17 12/13/[address] [place] [address] Viri Gallardo, Assigned PCP 09/12/1709/16 SOLDERER TORCH MILLER HEAD ASSISTANT WET PROCESS [facility] [place] [address] documented as of this encounter
--- OUTSIDE RECORDS SUMMARY | 2022-09-07 11:59 | XMS_ITS | Encounter Summary ---
:1995 Author Organization [place] Address [address] [place] [address] Care Team Providers Name Role Phone Viri Gallardo APRN, CNP Primary Care Provider [phone] Viri Gallardo APRN WATER PLANT PUMP OPERATOR Unavailable [phone] Reason for Visit Reason Comments Eye Problem one pupil bigger than the ot her, pain, blurry, irritable, shaky, has swelling, took some allergy drops Encounter Details Date Type Department Care Team Description 01/27/2019 Office Visit [facility] Jong Henderson Pupil as ymmetry (Primary Dx); Urgent Care Jesu Granda MD Eye discomfort, left [address] [address] [place] [phone] Social History Tobacco Use [...] 9:05 AM CDT [address] [place] [address] [facility] Emergency Department documented in this encounter Progress [...] and thigh 01/16/2015 Priority: Medium ??? Health Detention 09/04/2014 Priority: Medium No active Care Coordination at this time. EMERGENCY CARE PLAN Presenting Problem Signs and Symptoms Treatment Plan Questions or concerns during clinic hours I will call the clinic directly Questions or concerns outside clinic hours I will call the 24 hour nurse line at [phone] Patient needs to schedule an appointment I will call the 24 hour scheduling team at [phone] orclinic directly Same day treatment I will [...] agent. Discomfort is significant. I discussed with log cooker in- house who recommended ED referral for thorough examination by specialist. Patient was referred to [facility] but states the city driving makes her and her fiancee anxious - [facility]. Her fiancee will drive her by ground transport to hospital. Peculiar presentation: glaucoma/iritis should be considered. I doubt herpes/scleritis/conjunctivitis/Luis's as a cause. Patient does have a hx of illicit drug (per medical chart) use but had normal mentation and appropriate thought processes and speech today Jong Henderson MD [facility] The use of Key Travel/PrintToPeer dictation services may have been used to [...] as of this encounter Care Teams Senior Data Architect Relationship Specialty Start Date End Date Viri Gallardo APRN CNP PCP - General Nurse Practitioner 06/29/17 04/14/20 [address] [facility] [place] [address] Viri Gallardo APRN WATER PLANT PUMP OPERATOR Assigned PCP 09/12/17 09/16/19 [address] [facility] [place] [address] documented as of this encounter
--- OUTSIDE RECORDS SUMMARY | 2022-09-07 12:00 | XMS_ITS | Encounter Summary ---
:1995 Author Organization [place] Address [address] [place] [address] Care Team Providers Name Role Phone Viri Gallardo APRN, CNP Primary Care Provider [phone] Viri Gallardo APRN, CNP Unavailable [phone] Viri Gallardo APRN, CNP Unavailable [phone] Reason for Referral Mental Health Outpatient - Closed Specialty Diagnoses / Procedures Referred By Contact Refer red To Contact Diagnoses Moderate bipolar II disorder, most recent episode major depressive (H) Viri Gallardo APRN CNP [address] [facility] [place] [address] Referral ID Status Reason Start Date Expiration Date Visits Requ ested Visits Authorized [id number] Closed 05/12/2018 05/12/2019 1 1 Reason for Visit Reason Comments Recheck Medication Encounter Details Date Type Department Care Team Description [facility]/12[facility] Moderate b ipolar II disorder, most recent episode major depressive (H) (Primary Dx); Clinic Jesu Nicole APRN Cough [address] [facility] [address] [place] [address] [place] [address] [phone] Social History Tobacco Use Types Packs/Day Years [...] APRN CNP - 05/12/2018 10:00 AM CDT [employer] Address: [address] [place] [address] -Start therapy -See psych for possible addition [...] Name Type Priority Associated Diagnoses Order S [facility] REFERRAL - Referral Routine [...] documented as of this encounter Care Teams Hims Manager Relationship Specialty Start Date End Date Viri Gallardo PCP - General Nurse Practitioner 06/29/17 04/14/20 DORIAN APPLICATION SECURITY CONSULTANT [address] [facility] [place] [id number] Viri Gallardo, PCP - Assigned PCP 09/12/17 12/13/18 DORIAN APPLICATION SECURITY CONSULTANT [address] [facility] [place] [address] Viri Gallardo, Assigned PCP 09/12/1709/16 SUPERVISING NURSE APPLICATION SECURITY CONSULTANT [address] [facility] [place] [address] documented as of this encounter
--- OUTSIDE RECORDS SUMMARY | 2022-09-07 12:00 | XMS_ITS | Encounter Summary ---
:1995 Author Organization [place] Address [address] [place] [address] Care Team Providers Name Role Phone Viri Gallardo APRN, CNP Primary Care Provider [phone] Viri Gallardo APRN INTERNAL MEDICINE NURSE Unavailable [phone] Viri Gallardo APRN, CNP Unavailable [phone] Reason for Visit Diagnostic Imaging XR - Closed Specialty Diagnoses / Procedures Referred By Contact Refer red To Contact Diagnoses Rib pain on right side Josse Hassan, Procedures XR Ribs & Chest Right G/E 3 Views PA-C [address] [place] [address] [place] [address] Referral ID Status Reason Start Date Expiration Date Visits Requ ested Visits Authorized [id number] Closed 05/10/2018 05/10/2019 1 1 Encounter Details Date Type Department Care Team Description 05/10/2018 Radiant Appointment [facility] Josse Hassan ib pain on right Clinic Jesu Urbano, PAMarisolC side [address] [place] [address] [place] [address] [address] [place] [address] [place] [phone] [address] (Work) [phone] Social History Tobacco Use Types Packs/Day Years [...] as of this encounter Care Teams Director Online Marketing Relationship Specialty Start Date End Date Viri Gallardo, PCP - General Nurse Practitioner 06/29/17 04/14/20 DAIRY MACHINE OPERATOR FARMWORKER INTERNAL MEDICINE NURSE [address] [facility] [place] [address] Viri Gallardo, PCP - Assigned PCP 09/12/17 12/13/[address] [place] [address] Viri Gallardo, Assigned PCP 09/12/1709/[address] [place] [address] documented as of this encounter
--- OUTSIDE RECORDS SUMMARY | 2022-09-07 12:00 | XMS_ITS | Encounter Summary ---
:1995 Author Organization [place] Address [address] [place] [address] Care Team Providers Name Role Phone Viri Gallardo APRN, CNP Primary Care Provider [phone] Viri Gallardo APRN AUTOMOTIVE STARTER REPAIRER Unavailable [phone] Viri Gallardo APRN, CNP Unavailable [phone] Reason for Visit Reason Comments Medication Refill chantix Encounter Details Date Type Department Care Team Description 05/02/2018 Refill [facility] Viri Gallardo Medication Refill Clinic Jesu Nicole APRN CNP (chantix ) [address] [employer] [address] [facility] [address] [place] [address] [place] [phone] Social History Tobacco Use Types Packs/Day Years [...] as of this encounter Care Teams Client Evaluator Relationship Specialty Start Date End Date Viri Gallardo, PCP - General Nurse Practitioner 06/29/17 04/14/20 [place] [address] [facility] [place] [address] Viri Gallardo, PCP - Assigned PCP 09/12/17 12/13/18 DEPOSITION REPORTER AUTOMOTIVE STARTER REPAIRER [address] [facility] [place] [address] Viri Gallardo, Assigned PCP 09/12/1709/16 [facility] AUTOMOTIVE STARTER REPAIRER [address] [facility] [place] [address] documented as of this encounter
--- OUTSIDE RECORDS SUMMARY | 2022-09-07 12:00 | XMS_ITS | Encounter Summary ---
:1995 Author Organization [place] Address [address] [place] [address] Care Team Providers Name Role Phone Viri Gallardo APRN, CNP Primary Care Provider [phone] Viri Gallardo APRN WIND FIELD MANAGER Unavailable [phone] Viri Gallardo APRN WIND FIELD MANAGER Unavailable [phone] Reason for Visit Reason Comments Rib Pain Encounter Details Date Type Department Care Team Description 05/13/2018 Emergency [facility] Jessi Iqbal MD Rib contusion, right, [facility] initial encounter [address] [place], [place] [address] [facility] [address] [place] [address] (Wo rk) Social History Tobacco Use Types [...] pain. For severe pain, you can take Volant. If you are having more spasm/cramping pain, Flexeril may be helpful. Caution use with Flexeril and Volant as it will make you drowsy. Use a heating pack and continue Lidoderm patches. Follow-up closely with primary care provider to ensure you are improving as expected. Return with severe pain, fever greater than 101??F, or any other concerns. No evidence of pneumonia. Use incentive spirometer as instructed. AttachmentsThe following attachments cannot be sent through Care Everywhere.RIB CONTUSION (ANGUILLAN)documented in this encounter Medications at Time of [...] Rating pain 10/10 at this time. Also [facility] scripts for zithromax and flovent but has [...] (Creatinine 0.64) ISTAT HCG: <5.0 Interventions: 1053: Volant 1 tablet oral 1054: NS 1L IV [...] 0.64, and no leukocytosis. Patient was given Volant with some improvement and Lidoderm patch was placed. She was given incentive spirometer and instructed on its use. At this time, patient has no evidence of an infectious etiology but she can take azithromycin as her primary care provider prescribed if she so chooses. Suspect cough is related to her recent smoking cessation. I discussed pain control with continuous ibuprofen as well as Volant for more severe pain. I talked her about the use of Flexeril which may help if it is more cramping or spasm pain but otherwise patient can use Volant alone. I discussed the use of heating [...] 10 daysDisp-10 patch, R-0Local Print Anita 05/13/2018 [facility] EMERGENCY DEPARTMENT I, Anita Goldsmith, am serving [...] CBC with platelets differential (05/13/2018 10:31 AM [facility]) [facility] gist Method Time Signature WBC 7.6 4.0 - 05/13/2018 [facility] 11.0 11:03 AM [facility] 10e9/L [facility] RBC Count 4.33 3.8 - 5.2 05/13/2018 [facility] 10e12/L 11:03 [facility] Hemoglobin 14.5 11.7 - 05/13/2018 [facility] 15.7 g/dL 11:03 AM [facility] Hematocrit 41.9 35.0 - 05/13/2018 [facility] 47.0 % 11:03 [facility] MCV 97 78 - 100 05/13/2018 [facility] fl 11:03 [facility] MCH 33.5 (H) 26.5 - 05/13/2018 [facility] 33.0 pg 11:03 [facility] MCHC 34.6 31.5 - 05/13/2018 [facility] 36.5 g/dL 11:03 AM [facility] RDW 12.0 10.0 - 05/13/2018 [facility] 15.0 % 11:03 [facility] Platelet Count 264 150 - 450 05/13/2018 [facility] 10e9/L 11:03 AM [facility] Diff Method Automated 05/13/2018 [facility] Method 11:03 [facility] % Neutrophils 51.3 % 05/13/2018 [facility] 11:03 [facility] % Lymphocytes 35.2 % 05/13/2018 [facility] 11:03 [facility] % Monocytes 9.8 % 05/13/2018 [facility] 11:03 AM [facility] % Eosinophils 2.5 % 05/13/2018 [facility] 11:03 [facility] % Basophils 0.9 % 05/13/2018 [facility] 11:03 AM [facility] % Immature 0.3 % 05/13/2018 [facility] Granulocytes 11:03 [facility] Nucleated RBCs 0 0 /100 05/13/2018 [facility] 11:03 AM [facility] Absolute 3.9 1.6 - 8.3 05/13/2018 [facility] Neutrophil 10e9/L 11:03 AM [facility] Absolute 2.7 0.8 - 5.3 05/13/2018 [facility] Lymphocytes 10e9/L 11:03 AM [facility] Absolute 0.7 0.0 - 1.3 05/13/2018 [facility] Monocytes 10e9/L 11:03 AM [facility] Absolute 0.2 0.0 - 0.7 05/13/2018 [facility] Eosinophils 10e9/L 11:03 AM [facility] Absolute 0.1 0.0 - 0.2 05/13/2018 [place] Basophils 10e9/L 11:03 AM [facility] Abs Immature 0.0 0 - 0.4 05/13/2018 [facility] Granulocytes 10e9/L 11:03 AM [facility] Absolute 0.0 05/13/2018 [place] Nucleated RBC 11:03 AM [facility] Specimen Anatomical Collection Method Collection Time Receive d Time (Source) Location / / Volume Laterality Blood specimen 05/13/2018 10:31 8 (specimen) AM CDT 10:59 AM CDT Jessi Iqbal MD LAB - BLOOD ORDERABLES Performing Organization Address City/State/ZIP Code Phon e Number M [place] [address] [address] [address] [facility] [address] [phone] Basic metabolic panel (05/13/2018 10:31 AM CDT) athologist Signature Sodium 139 133 - 144 05/13/2018 [place] mmol/L 11:17 AM [facility] Potassium 3.9 3.4 - 5.3 05/13/2018 [place] mmol/L 11:17 AM [facility] Chloride 106 94 - 109 05/13/2018 [place] mmol/L 11:17 AM [facility] Carbon Dioxide 27 20 - 32 05/13/2018 [place] mmol/L 11:17 AM [facility] Anion Gap 6 3 - 14 05/13/2018 [place] mmol/L 11:17 AM [facility] Glucose 96 70 - 99 05/13/2018 [place] mg/dL 11:17 AM [facility] Urea Nitrogen 13 7 - 30 05/13/2018 [place] mg/dL 11:17 AM [facility] Creatinine 0.64 0.52 - 05/13/2018 [place] 1.04 mg/dL 11:17 AM [facility] GFR Estimate >90 >60 05/13/2018 [place] mL/min/1.7 11:[address] Comment: Non GFR Calc GFR Estimate If >90 >60 mL/min/1.7m2 05/13/2018 11:17 AM [facility] Comment: GFR Calc Calcium 8.8 8.5 - 10.1 mg/dL 05/13/2018 11:17 AM [facility] Specimen Anatomical Collection Method Collection Time Receive d Time (Source) Location / / Volume Laterality Blood specimen 05/13/2018 10:31 8 (specimen) AM CDT 10:59 AM CDT Jessi Iqbal MD LAB - BLOOD ORDERABLES Performing Organization Address City/State/ZIP Code Phon e Number M [place] [address] [phone] documented in this encounter Visit Diagnoses Diagnosis [...] as of this encounter Care Teams Mold Construction Supervisor Relationship Specialty Start Date End Date Viri Gallardo, PCP - General Nurse Practitioner 06/29/17 04/14/20 HOUSE PRINCIPAL WIND FIELD MANAGER [address] [place] [address] [place] [address] Viri Gallardo, PCP - Assigned PCP 09/12/17 12/13/18 HOUSE PRINCIPAL WIND FIELD MANAGER [address] [place] [address] [place] [address] Viri Gallardo, Assigned PCP 09/12/1709/16 HOUSE PRINCIPAL WIND FIELD MANAGER [facility] [place] [address] documented as of this encounter
--- OUTSIDE RECORDS SUMMARY | 2022-09-07 12:00 | XMS_ITS | Encounter Summary ---
:1995 Author Organization [place] Address [address] [place] [address] Care Team Providers Name Role Phone Viri Gallardo APRN, CNP Primary Care Provider [phone] Viri Gallardo APRN, CNP Unavailable [phone] Viri Gallardo APRN, CNP Unavailable [phone] Reason for Visit Reason Comments URI Encounter Details Date Type Department Care Team Description 04/14/2018 Office Visit [facility] [place], Acute sinu sitis with symptoms > 10 days (Primary Dx); Clinic Jesu Ruiz APRN Smoker [address] [facility] [address] [facility] [address] [facility] [place] [address] [place] [id number] Social History Tobacco Use Types Packs/Day Years [...] encounter Patient Instructions Patient InstructionsVonnie Hernandez, DORIAN PETROLOGY TEACHER - 04/14/2018 10:00 AM CDT Images from [...] and throat doctor (called an ENT or barrel filler). The specialist will check for polyps or a deformed bone that may be blocking your sinuses. Published by [employer]. This content is reviewed periodically and is subject to change as new health information becomes available. The information is intended to inform and educate and is not a replacement for medical evaluation, advice, diagnosis or treatment by a healthcare professional. Developed by [employer]. ? 2009 [employer] and/or its affiliates. All Rights Reserved. Copyright ?? [employer] 2011 Adult Health Advisor documented in this encounter Progress Notes Vonnie Hernandez, DORIAN PETROLOGY TEACHER - 04/14/2018 10:00 AM CDT SUBJECTIVE: Joel [...] Problem List Diagnosis ??? Migraine ??? Health Mcfp ??? Pain in joint, pelvic region and [...] a later time. Vonnie Hernandez APRN CNP [facility] [place] documented in this encounter Plan of Treatment Not on filedocumented as of this encounter Visit Diagnoses Diagnosis Acute sinusitis with symptoms > 10 days - Primary Acute sinusitis, unspecified Smoker Tobacco use disorder documented in this encounter Additional Health Concerns Assessment Noted Time PHQ-9 Depression Total Score: 15 04/08/2018 7:11 AM CD T documented as of this encounter Care Teams Tiler Relationship Specialty Start Date End Date Viri Gallardo, PCP - General Nurse Practitioner 06/29/17 04/14/[address] [place] [address] Viri Gallardo, PCP - Assigned PCP 09/12/17 12/13/[address] [place] [address] Viri Gallardo, Assigned PCP 09/12/1709/[address] [place] [address] documented as of this encounter
--- OUTSIDE RECORDS SUMMARY | 2022-09-07 12:00 | XMS_ITS | Encounter Summary ---
:1995 Author Organization [place] Address [address] [place] [address] Care Team Providers Name Role Phone Viri Gallardo APRN, CNP Primary Care Provider [phone] Viri Gallardo APRN SUSHI CHEF Unavailable [phone] Viri Gallardo APRN, CNP Unavailable [phone] Reason for Visit Reason Onset Date Comments Referral 09/20/2017 Encounter Details Date Type Department Care Team Description 09/20/2017 Telephone [facility] Viri Gallardo istine, Referral Jesu ALARCON SUSHI CHEF [address] [facility] [address] [facility] [address] [place] [address] [place] [address] [phone] Social History Tobacco Use Types Packs/Day Years [...] Valerie Gilbert RN - 09/20/2017 2:27 PM HALAL MEAT PACKER Patient informed. Agreed to an in clinic office visit. Scheduled this . Advised to return toER if sx worsen before than. Patient expressed understanding. Valerie Cuevas RN, BSN, [place] Omer RN L MEAT PACKER Telephone Encounter - Viri Gallardo APRN CNP - 09/20/2017 10:57 AM HALAL MEAT PACKER Please call patient and give her my apologies for having to cancel. I cannot give her the referral until she comes in for hospital follow up. There were some serious things we needed to talk about. I really want to touch base. Would she at least be open to a phone visit? Don't bring that up unless she refuses to come in. L MEAT PACKER Telephone Encounter - Magali Han RN - 09/20/2017 9:44 AM CST Patient calling that she is requesting a referral to her OB to determine the type of HPV she has andalso to have her IUD taken out. States she was going to discuss at the Hospital f/u today but it wascanceled. Refuses to reschedule the Hospital f/u. MACERATOR OPERATOR [facility]ists [place]. [phone] L MEAT PACKER documented in this encounter Plan of Treatment Not on filedocumented as of this encounter Visit Diagnoses Not on filedocumented in this encounter Additional Health Concerns Assessment Noted Time PHQ-9 Depression Total Score: 13 06/29/2017 2:50 PM CD T documented as of this encounter Care Teams Lock And Dam Equipment Repairer Relationship Specialty Start Date End Date Viri Gallardo PCP - General Nurse Practitioner 06/29/17 04/14/20 FIXED ROUTE OPERATOR SUSHI CHEF [address] [place], [place] [address] Viri Gallardo PCP - Assigned PCP 09/12/17 12/13/18 FIXED ROUTE OPERATOR SUSHI CHEF [address] [place] [address] Viri Gallardo, Assigned PCP 09/12/1709/16 FIXED ROUTE OPERATOR SUSHI CHEF [address] [place] [address] documented as of this encounter
--- OUTSIDE RECORDS SUMMARY | 2022-09-07 12:00 | XMS_ITS | Encounter Summary ---
:1995 Author Organization [place] Address [address] [place] [address] Care Team Providers Name Role Phone Viri Gallardo APRN, CNP Primary Care Provider [phone] Viri Gallardo APRN FOOD AND BEVERAGE ATTENDANT Unavailable [phone] Viri Gallardo APRN FOOD AND BEVERAGE ATTENDANT Unavailable [phone] Reason for Visit Reason Comments Dysuria Encounter Details Date Type Department Care Team Description 02/22/2018 Emergency [facility] David Jurado, Acute cystitis with [facility] Emergency Dep t hematuria [address] [facility] [place] [address] [address] [phone] [address] [place], [place] [address] (Wo rk) Social History Tobacco Use Types [...] and the provider's statements to me. 02/22/2018 [facility] EMERGENCY DEPARTMENT David Jurado MD 02/22/18 1805 documented in this encounter Plan of Treatment [...] Component Value Ref Test Analysis Performed At [facility] gist Range Method Time Signature Specimen Midstream Urine INFECTIOUS Description DISEASE DIAGNOSTIC LABORATORY Special Specimen received 02/22/2018 [facility] in preservative 9:02 PM CDT [facility] Culture Micro <10,000 colonies/mL 02/23/2018 INFEC TIOUS [...] MICRO GENERAL ORDERABL ES Performing Organization Address City/[facility]/ZIP Code Phon e Number INFECTIOUS DISEASES [address] [place] [address] DIAGNOSTIC LABORATORY, [facility] INFECTIOUS DISEASE [address] [place] [address], [facility] DIAGNOSTIC LABORATORY [address] [address], [facility] HCG qualitative urine (UPT) (02/22/2018 1:12 PM CDT) athologist Signature HCG Qual Urine Negative NEG^Negati 02/22/2018 [facility] ve 1:52 PM [facility] Comment: This test is for screening purposes. ??R esults should be interpreted along with the clinical picture. ??Confirmation te sting is available if warranted by ordering [id number], HCG Quantitative Pregna ncy. Specimen Anatomical Collection Method Collection Time Receive d Time (Source) Location / / Volume Laterality Urine specimen URINE SPECIMEN 02/22/2018 1:12 PM 02/22 1:31 (specimen) OBTAINED BY CLEAN CDT PM CDT CATCH PROCEDURE / Unknown David Jurado MD LAB - URINE ORDERABLES Performing Organization Address City/[facility]/ZIP [facility] Phon e Number [facility] [address] [phone] [facility] [address] [phone] (ABNORMAL) UA with Microscopic (02/22/2018 1:12 PM CDT) Patholo gist Method Time Signature Color Urine Lidia 02/22/2018 [facility] 1:51 PM [facility] Appearance Urine Clear 02/22/2018 [facility] 1:51 PM [facility] Glucose Urine Negative NEG^Negat 02/22/2018 [facility] herrera mg/dL 1:51 PM [facility] Bilirubin Urine Negative NEG^Negat 02/22/2018 [facility] herrera 1:51 PM [facility] Ketones Urine Negative NEG^Negat 02/22/2018 [facility] herrera mg/dL 1:51 PM [facility] Specific [place] 1.002 (L) 1.003 - 02/22/2018 [facility] Urine 1.035 1:51 PM [facility] Blood Urine Large (A) NEG^Negat 02/22/2018 [facility] herrera 1:51 PM [facility] pH Urine 7.0 5.0 - 7.0 02/22/2018 [facility] pH 1:51 PM [facility] Protein Albumin 100 (A) NEG^Negat 02/22/2018 [facility] Urine herrera mg/dL 1:51 PM [facility] Urobilinogen 0.0 0.0 - 2.0 02/22/2018 [facility] mg/dL mg/dL 1:51 PM [facility] Nitrite Urine Negative NEG^Negat 02/22/2018 [facility] herrera 1:51 PM [facility] Leukocyte Large (A) NEG^Negat 02/22/2018 [facility] Esterase Urine herrera 1:51 PM [facility] Source Midstream 02/22/2018 [facility] Urine 1:32 PM [facility] WBC Urine 69 (H) 0 - 5 02/22/2018 [facility] /HPF 1:51 PM [facility] RBC Urine 2 0 - 2 02/22/2018 [facility] /HPF 1:51 PM [facility] Bacteria Urine Moderate (A) NEG^Negat 02/22/2018 [facility] herrera /HPF 1:51 PM [facility] Squamous 1 0 - 1 02/22/2018 [facility] Epithelial /HPF /HPF 1:51 PM [facility] Transitional Epi 1 0 - 1 02/22/2018 [facility] /HPF 1:51 PM [facility] Specimen (Source) Anatomical Collection Method Collection Time Re ceived Time Location / / Volume Laterality Examination of URINE SPECIMEN 02/22/2018 1:12 02/23/20 18 1:31 midstream urine OBTAINED BY CLEAN PM [facility] ER specimen CATCH PROCEDURE / (procedure) Unknown David Jurado MD LAB - URINE ORDERABLES Performing Organization Address City/State/ZIP Code Phon e Number M [facility] [address] [place], [place] [address] [facility] [address] [phone] documented in this encounter Visit Diagnoses Diagnosis Acute cystitis with hematuria Acute cystitis documented in this encounter Additional Health Concerns Assessment Noted Time PHQ-9 Depression Total Score: 13 06/29/2017 2:50 PM CD T documented as of this encounter Care Teams Extrusion Press Supervisor Relationship Specialty Start Date End Date Viri Gallardo, PCP - General Nurse Practitioner 06/29/17 04/14/20 INSURANCE ACCOUNT SPECIALIST FOOD AND BEVERAGE ATTENDANT [address] [facility] [place] [address] Viri Gallardo, PCP - Assigned PCP 09/12/17 12/13/18 INSURANCE ACCOUNT SPECIALIST FOOD AND BEVERAGE ATTENDANT [address] [facility] [place] [address] Viri Gallardo, Assigned PCP 09/12/1709/16 INSURANCE ACCOUNT SPECIALIST FOOD AND BEVERAGE ATTENDANT [address] [facility] [place] [address] documented as of this encounter
--- OUTSIDE RECORDS SUMMARY | 2022-09-07 12:00 | XMS_ITS | Encounter Summary ---
:1995 Author Organization [place] Address [address] [place] [address] Care Team Providers Name Role Phone Viri Gallardo APRN, CNP Primary Care Provider [phone] Viri Gallardo APRN HOSPITAL LIBRARIAN Unavailable [phone] Viri Gallardo APRN HOSPITAL LIBRARIAN Unavailable [phone] Reason for Visit Reason Comments Erroneous encounter-disregard Encounter Details Date Type Department Care Team Description 02/22/2018 Office Visit [facility] Jesu Potter PA-C ENCOUNTER--DISREGARD [address] [facility] (Prim jeff Dx) [facility] [address] [place] [address] [place] [address] Social History Tobacco Use Types Packs/Day [...] of this encounter Progress Notes Adalid Kaur, BENCH TOOL MAKER - 02/22/2018 2:30 PM CDT .. documented in this encounter Plan of Treatment Not on filedocumented as of this encounter Visit Diagnoses Diagnosis ERRONEOUS ENCOUNTER--DISREGARD - Primary documented in this encounter Additional Health Concerns Assessment Noted Time PHQ-9 Depression Total Score: 13 06/29/2017 2:50 PM CD T documented as of this encounter Care Teams Emery Wheel Worker Relationship Specialty Start Date End Date Viri Gallardo, PCP - General Nurse Practitioner 06/29/17 04/14/20 MANAGER STATISTICS HOSPITAL LIBRARIAN [address] [facility] [place] [address] Viri Gallardo, PCP - Assigned PCP 09/12/17 12/13/18 MANAGER STATISTICS HOSPITAL LIBRARIAN [address] [facility] [place] [address] Viri Gallardo, Assigned PCP 09/12/1709/16 MANAGER STATISTICS HOSPITAL LIBRARIAN [address] [facility] [place] [address] documented as of this encounter
--- OUTSIDE RECORDS SUMMARY | 2022-09-07 12:00 | XMS_ITS | Encounter Summary ---
:1995 Author Organization [place] Address [address] [place] [address] Care Team Providers Name Role Phone Viri Gallardo APRN, CNP Primary Care Provider [phone] Encounter Details Date Type Department Care Team Description 09/07/2017 Radiant Appointment [facility] Merry Oneil, Intractable Clinic Jesu GREEN vomiting with [address] [place] nausea, un specified [facility] vomiting type [address] [place] [address] [place] [phone] [address] (Work) [phone] Social History Tobacco Use Types Packs/Day Years [...] AM Intractable vom iting Results for this ACCOUNTING MANAGER CONTROLLER with nausea, procedure are i n unspecified vomiting the res ults type section. documented in this encounter Results XR Abdomen 2 Views (09/07/2017 11:54 AM ACCOUNTING MANAGER CONTROLLER) Anatomical Region Laterality Modality Abdomen/Pelvis Computed Radiography Specimen (Source) Anatomical Location Collection Method / Collectio n Time Received Time / Laterality Volume Impressions 09/07/2017 3:05 PM ACCOUNTING MANAGER CONTROLLER IMPRESSION: Normal bowel gas pattern. At least a moderate amount of fecal material throughout the ascending and transverse colon. Intrauterine device projects over the pe lvis. LUANN ADHIKARI MD Narrative 09/07/2017 3:05 PM ACCOUNTING MANAGER CONTROLLER ABDOMEN TWO VIEWS September 07, 2017 11:54 [...] documented as of this encounter Care Teams Miner Placer Relationship Specialty Start Date End Date Viri Gallardo APRN CNP PCP - General Nurse Practitioner 06/29/17 04/14/20 [address] [facility] [place] [address] documented as of this encounter
--- OUTSIDE RECORDS SUMMARY | 2022-09-07 12:00 | XMS_ITS | Encounter Summary ---
:1995 Author Organization [place] Address [address] [place] [address] Care Team Providers Name Role Phone Viri Gallardo APRN, CNP Primary Care Provider [phone] Viri Gallardo APRN, CNP Unavailable [phone] Viri Gallardo APRN, CNP Unavailable [phone] Reason for Referral Mental Health Outpatient - Closed Specialty Diagnoses / Procedures Referred By Contact Refer red To Contact Diagnoses Moderate bipolar II disorder, most recent episode major depressive (H) Viri Gallardo APRN CNP [address] [place] [address] [place] [address] Referral ID Status Reason Start Date Expiration Date Visits Requ ested Visits Authorized [id number] Closed 04/07/2018 04/07/2019 1 1 Reason for Visit Reason Comments Recheck Medication Referral Encounter Details Date Type Department Care Team Description 04/07/2018 [facility] Moderate b ipolar II disorder, most recent episode major depressive (H) (Primary Dx); Clinic Jesu Nicole APRN Intractable chronic migraine without aura and without status migrainosus; [address] [place] [address] Encounter for tobacco use cessation [facility] [address] [place] [address] [place] [address] [phone] Social History Tobacco Use Types Packs/Day Years [...] Patient Instructions Patient InstructionsMolitor, Viri Nicole APRN CERTIFIED ALCOHOL COUNSELOR - 04/07/2018 10:40 AM CDT -Hydroxyzine as needed for anxiety -Schedule with new psychiatrist and therapist -When you are ready, dual diagnosis program -Ok to start Chantix. Watch for worsening mood. Phone visit 10 days. -Reduce caffine Crisis services in [place] We understand that as of April 09, 2018, [facility] will no longer be providing crisis hotlineservices. It is important for everyone to know that there are multiple crisis services available in [place], including the National Suicide Prevention Lifeline at 466-695-GBII (4941). [place] will continue to have 03/05 crisis services available across the [facility], available both by phone and in-person by calling the appropriate county crisis phone number. A list of crisis services numbers can be found below as well as on the Department of Human Services website. Crisis Text Line is a text-based crisis line available across [place] 03/05. Text [place] to 477 209. In the [facility] area, people in crisis can call CRISIS (175811) from a mobile phone. This mobile phone service will soon be available statewide. Outside of the [facility], you can use the directory for mental health crisis phone numbers in [place] by county. The National Suicide Prevention Lifeline will continue to be available without interruption at 370-134-TMMT (2984). documented in this encounter Progress Notes Viri [...] or the safety of others? No PHQ-9 Zambian PHQ-9 Any Language Suicide Assessment Five-step Evaluation [...] Chantix immediately if any worsening of mood. (G43.019) Intractable chronic migraine without aura and without [...] Name Type Priority Associated Diagnoses Order [facility] REFERRAL - Referral Routine Moderate bipolar II [...] documented as of this encounter Care Teams Ship Wirer Relationship Specialty Start Date End Date Viri Gallardo, PCP - General Nurse Practitioner 06/29/17 04/14/20 LEGAL DEPARTMENT MANAGER CERTIFIED ALCOHOL COUNSELOR [address] [facility] [place] [id number] Viri Gallardo, PCP - Assigned PCP 09/12/17 12/13/18 LEGAL DEPARTMENT MANAGER CERTIFIED ALCOHOL COUNSELOR [address] [facility] [place] [address] Viri Gallardo, Assigned PCP 09/12/1709/16 LEGAL DEPARTMENT MANAGER CERTIFIED ALCOHOL COUNSELOR [address] [place] [address] documented as of this encounter
--- OUTSIDE RECORDS SUMMARY | 2022-09-07 12:00 | XMS_ITS | Encounter Summary ---
:1995 Author Organization [place] Address [address] [place] [address] Care Team Providers Name Role Phone Viri Gallardo APRN, CNP Primary Care Provider [phone] Viri Gallardo APRN, CNP Unavailable [phone] Viri Gallardo APRN, CNP Unavailable [phone] Reason for Referral ASSURANCE SOURCING MANAGER - Closed Specialty Diagnoses / Procedures Referred By Contact Refer red To Contact Diagnoses IUD (intrauterine device) in place Viri Gallardo M [facility] [place] [address] [place] [address] [place] [address] [place] [address] [address] [place] [phone] Phone: Fax: Referral ID Status Reason Start Date Expiration Date Visits Requ ested Visits Authorized [id number] Closed 09/24/2017 09/24/2018 1 1 GRAPHIC DESIGNER Reason for Visit Reason Comments ER F/U Encounter Details Date Type Department Care Team Description 09/24/2017 Office Visit [facility] Viri Gallardo Dizziness (Primary Dx); Clinic Jesu Nicole APRN Abdominal pain, generalized; [address] [facility] IUD (intrauterine device) in place; [address] Healthcare maintenance [address] [facility] [place] [address] [place] [address] Social History Tobacco Use [...] Comments Blood Pressure 102/64 09/24/2017 2:04 PM WEB GRAPHIC DESIGNER Pulse 76 09/24/2017 2:04 PM WEB GRAPHIC DESIGNER Temperature 36.5 ??C (97.7 ??F) 09/24/2017 2:04 PM WEB GRAPHIC DESIGNER Respiratory Rate - - Oxygen Saturation 99% 09/24/2017 2:04 PM WEB GRAPHIC DESIGNER Inhaled Oxygen Concentration - - Weight 51.4 kg (113 lb 4.8 oz) 09/24/2017 2:04 PM WEB GRAPHIC DESIGNER Height 163.2 cm (5' 4.25) 09/24/2017 2:04 PM WEB GRAPHIC DESIGNER Body Mass Index 19.3 09/24/2017 2:04 PM WEB GRAPHIC DESIGNER documented in this encounter Patient Instructions Patient InstructionsMolitorViri APRN CNP - 09/24/2017 2:00 PM WEB GRAPHIC DESIGNER -Do the cleanse -Schedule follow up with GI. -Psychiatry -Therapist -See OB -Start folic acid daily GRAPHIC DESIGNER documented in this encounter Progress Notes Viri Gallardo APRN CNP - 09/24/2017 2:00 PM CST SUBJECTIVE: Joel Amos is a 22 year old female who presents to clinic today for the following health issues: ED/UC Followup: Facility: [facility] ED Date of visit: 09/15/17 Reason [...] begun to be evaluated for here at [facility]. Abdominal pain: Reports 1 month of sharp [...] is reportedly in the correct placement. Plan: ASSURANCE SOURCING MANAGER REFERRAL, folic acid (FOLVITE) 400 MCG tablet [...] (VITAMIN D) 2000 UNITS tablet NATALIE Erickson. GRAPHIC DESIGNER documented in this encounter Nursing Notes Aneta [...] (51.4 kg). Medication Reconciliation: nette Varghese CMA GRAPHIC DESIGNER documented in this encounter Plan of Treatment Scheduled Referrals Name Type Priority Associated Diagnoses Order S chedule ASSURANCE SOURCING MANAGER REFERRAL Referral Routine IUD (intrauterine device) in [...] documented as of this encounter Care Teams Transformer Coil Winder Relationship Specialty Start Date End Date Viri Gallardo, PCP - General Nurse Practitioner 06/29/17 04/14/[address] [place] [address] Viri Gallardo, PCP - Assigned PCP 09/12/17 12/13/[address] [place] [address] Viri Gallardo, Assigned PCP 09/12/1709/[address] [place] [address] documented as of this encounter
--- OUTSIDE RECORDS SUMMARY | 2022-09-07 12:00 | XMS_ITS | Encounter Summary ---
:1995 Author Organization [place] Address [address] [place] [address] Care Team Providers Name Role Phone Viri Gallardo APRN, CNP Primary Care Provider [phone] Viri Gallardo APRN SENIOR PRODUCT DEVELOPMENT MANAGER Unavailable [phone] Viri Gallardo APRN, CNP Unavailable [phone] Reason for Visit Diagnostic Imaging XR - Closed Specialty Diagnoses / Procedures Referred By Contact Refer red To Contact Diagnoses Cough Josse Hassan, Procedures XR Chest 2 Views JAGDISH [address] [place] [address] [place] [address] Referral ID Status Reason Start Date Expiration Date Visits Requ ested Visits Authorized [id number] Closed 04/21/2018 04/21/2019 1 1 Encounter Details Date Type Department Care Team Description 04/21/[address] [facility] Josse Hassan [facility] Jesu Urbano PA-C [address] [place] [address] [place] [id number] [phone] Social History Tobacco Use Types Packs/Day Years [...] documented as of this encounter Care Teams Wild Animal Caretaker Relationship Specialty Start Date End Date Viri Gallardo, PCP - General Nurse Practitioner 06/29/17 04/14/20 DIRECTOR AGRICULTURAL SERVICES SENIOR PRODUCT DEVELOPMENT MANAGER [address] [facility] [place] [address] Viri Gallardo, PCP - Assigned PCP 09/12/17 12/13/18 DIRECTOR AGRICULTURAL SERVICES SENIOR PRODUCT DEVELOPMENT MANAGER [address] [facility] [place] [address] Viri Gallardo, Assigned PCP 09/12/1709/16 DIRECTOR AGRICULTURAL SERVICES SENIOR PRODUCT DEVELOPMENT MANAGER [address] [facility] [place] [address] documented as of this encounter
--- OUTSIDE RECORDS SUMMARY | 2022-09-07 12:00 | XMS_ITS | Encounter Summary ---
:1995 Author Organization [place] Address [address] [place] [address] Care Team Providers Name Role Phone Viri Gallardo APRN, CNP Primary Care Provider [phone] Viri Gallardo APRN LAND CLASSIFIER Unavailable [phone] Viri Gallardo APRN, CNP Unavailable [phone] Reason for Visit Reason Comments Flu Encounter Details Date Type Department Care Team Description 11/23/2017 Office Visit [facility] [place], Acute phar yngitis, unspecified etiology (Primary Dx); Clinic Jesu Potter, Viral gastroenteritis [address] [facility] [address] [facility] [address] [facility] [address] [facility] [place] [address] [place] [id number] Social History Tobacco Use Types Packs/Day Years [...] Comments Blood Pressure 110/70 11/23/2017 1:09 PM FURNITURE ASSEMBLER AND INSTALLER Pulse 71 11/23/2017 1:09 PM FURNITURE ASSEMBLER AND INSTALLER Temperature 36.6 ??C (97.9 ??F) 11/23/2017 1:09 PM FURNITURE ASSEMBLER AND INSTALLER Respiratory Rate - - Oxygen Saturation 99% 11/23/2017 1:09 PM FURNITURE ASSEMBLER AND INSTALLER Inhaled Oxygen Concentration - - Weight 49.9 kg (110 lb) 11/23/2017 1:09 PM FURNITURE ASSEMBLER AND INSTALLER Height 163.2 cm (5' 4.25) 11/23/2017 1:09 PM FURNITURE ASSEMBLER AND INSTALLER Body Mass Index 18.73 11/23/2017 1:09 PM FURNITURE ASSEMBLER AND INSTALLER documented in this encounter Patient Instructions Patient InstructionsMindi Huynh PA-C - 11/23/2017 1:10 PM FURNITURE ASSEMBLER AND INSTALLER Images from the original note were not included. Stomach Flu What is stomach flu? Stomach flu is a viral infection that affects the stomach and small intestine. It is also called viral gastroenteritis. The illness is usually brief, lasting 1 to 3 days. How does it occur? Many different viruses can cause stomach flu, including rotaviruses, adenoviruses, and the [place] virus. The body fluids of infected people [...] food with someone who has stomach flu. ITURE ASSEMBLER AND INSTALLER documented in this encounter Progress Notes Mindi [...] chest ?? Sore Throat: YES ?? Cough: FVG-nno-fntiufluvs ?? Wheeze: no ?? Decreased Appetite: YES ?? Nausea: YES x today ?? Vomiting: YES x today ?? Diarrhea: YES x few days ?? Dysuria/Freq.: no ?? Fatigue/Achiness: YES- both ?? Sick/Strep Exposure: YES Therapies Tried and outcome: nausea medication URI symptoms have improved. Patient now feels nauseated. Boyfriend has similar symptoms Works at [employer]. ROS: ROS otherwise negative OBJECTIVE: BP 110/70 [...] antigen See Patient Instructions Mindi Huynh PA-C [facility] ITURE ASSEMBLER AND INSTALLER documented in this encounter Nursing Notes Adalid [...] kg). Medication Reconciliation: complete Adalid Kaur CMA ITURE ASSEMBLER AND INSTALLER documented in this encounter Plan of Treatment Not on filedocumented as of this encounter Procedures Procedure Name Priority Date/Time Associated Diagnosis Comme nts BETA HEMOLYTIC Routine 11/23/2017 2:05 PM Acute pharyngitis, R esults for this STREP GROUP A FURNITURE ASSEMBLER AND INSTALLER unspecified etiology proced ure are in CULTURE the results section. RAPID STREP SCREEN Routine 11/23/2017 1:45 PM Acute pharyngiti s, Results for this THROAT SWAB FURNITURE ASSEMBLER AND INSTALLER unspecified etiology procedu re are in the results section. INFLUENZA A/B Routine 11/23/2017 1:09 PM Viral gastroenteritis Results for this ANTIGEN FURNITURE ASSEMBLER AND INSTALLER procedure are i n the results section. documented in this encounter Results Beta strep group A culture (11/23/2017 2:05 PM FURNITURE ASSEMBLER AND INSTALLER) Component Value Ref Test Analysis Performed At [facility] EverCharge Range Method Time Signature Specimen Throat [facility] Culture Micro No beta 11/24/2017 MALJAMAR hemolytic 4:12 PM FURNITURE ASSEMBLER AND INSTALLER [facility] Streptococcus JESU Group A isolated Specimen Anatomical Collection Method Collection Time Receive d Time (Source) Location / / Volume Laterality Specimen from 11/23/2017 2:05 PM 11/23/19 18 2:07 throat FURNITURE ASSEMBLER AND INSTALLER PM FURNITURE ASSEMBLER AND INSTALLER (specimen) Mindi Huynh PA-C LAB - MICRO GENERAL ORD ERABLES Performing Organization Address City/State/ZIP Code Phon e Number [facility] [address] [place] [address] Strep, Rapid Screen (11/23/2017 1:45 PM FURNITURE ASSEMBLER AND INSTALLER) Component Value Ref Test Analysis Performed At [facility] EverCharge Range Method Time Signature Specimen Throat [facility] Rapid Strep A NEGATIVE: No 11/23/2017 MALJAMAR Screen Group A 2:02 PM FURNITURE ASSEMBLER AND INSTALLER CLINICS streptococcal JESU antigen detected by immunoassay, await culture report. Specimen Anatomical Collection Method Collection Time Receive d Time (Source) Location / / Volume Laterality Specimen from 11/23/2017 1:45 PM 11/23/19 18 1:46 throat FURNITURE ASSEMBLER AND INSTALLER PM FURNITURE ASSEMBLER AND INSTALLER (specimen) Mindi Huynh PA-C LAB - MICRO GENERAL ORD ERABLES Performing Organization Address City/[facility] Code Phon e Number [facility] [address] [place], [place] [address] [phone] Influenza A/B antigen (11/23/2017 1:09 PM FURNITURE ASSEMBLER AND INSTALLER) athologist Signature Influenza A/B Nasal 11/23/2017 MALJAMAR Agn Specimen 1:15 PM FURNITURE ASSEMBLER AND INSTALLER [facility] Influenza A Negative NEG^Negati 11/23/2017 MALJAMAR ve 1:37 PM FURNITURE ASSEMBLER AND INSTALLER [facility] Influenza B Negative NEG^Negati 11/23/2017 MALJAMAR ve 1:37 PM FURNITURE ASSEMBLER AND INSTALLER CLINICS JESU Comment: Test results must be correlated with i nical data. If necessary, results should be confirmed by a molecular assay or viral culture. Specimen Anatomical Collection Method Collection Time Receive d Time (Source) Location / / Volume Laterality Specimen from 11/23/2017 1:09 PM 11/23/19 18 1:14 nose (specimen) FURNITURE ASSEMBLER AND INSTALLER PM FURNITURE ASSEMBLER AND INSTALLER Mindi Huynh PA-C LAB - MICRO GENERAL ORD ERABLES Performing Organization Address City/[facility] Phon e Number [facility] [address] [place], [place] [address] [address] [phone] documented in this encounter Visit Diagnoses Diagnosis Acute pharyngitis, unspecified etiology - Primary Viral gastroenteritis Intestinal infection due to other organi sm, not elsewhere classified documented in this encounter Additional Health Concerns Assessment Noted Time PHQ-9 Depression Total Score: 06/29/2017 2:50 PM CD T documented as of this encounter Care Teams Armature Connector Relationship Specialty Start Date End Date Viri Gallardo, PCP - General Nurse Practitioner 06/29/17 04/14/20 STANDARD MACHINE STITCHER LAND CLASSIFIER [address] [facility] [place] [address] Viri Gallardo, PCP - Assigned PCP 09/12/17 12/13/18 STANDARD MACHINE STITCHER LAND CLASSIFIER [address] [facility] [place] [address] Viri Gallardo, Assigned PCP 09/12/1709/16 STANDARD MACHINE STITCHER LAND CLASSIFIER [address] [facility] [place] [address] documented as of this encounter
--- OUTSIDE RECORDS SUMMARY | 2022-09-07 12:00 | XMS_ITS | Encounter Summary ---
:1995 Author Organization [place] Address [address] [place] [address] Care Team Providers Name Role Phone Viri Gallardo APRN, CNP Primary Care Provider [phone] Viri Gallardo APRN CERTIFIED MEDICAL ASSISTANT Unavailable [phone] Viri Gallardo APRN CERTIFIED MEDICAL ASSISTANT Unavailable [phone] Reason for Visit Reason Onset Date Comments Referral 09/16/2017 Patient called in fo information on referrals from ED recommendations Encounter Details Date Type Department Care Team Description 09/16/2017 Telephone [facility] Nurse Lidia Mullen, Referral (Patient Advisors RN called in for [phone] [place] [address] referrals from ED [phone] recommendations ) Social History Tobacco Use Types [...] Gallardo on 09/20/17. Routing message to PCP. L AND PLASTIC HEATER Telephone Encounter - Lidia Mullen RN - [...] transfer to scheduling for an appointment at [facility] tomorrow. No triage needed at this time, and will route message tocare team as well. Lidia Mullen RN, BSN [place] Nurse [facility]visors L AND PLASTIC HEATER documented in this encounter Plan of Treatment Not on filedocumented as of this encounter Visit Diagnoses Not on filedocumented in this encounter Additional Health Concerns Assessment Noted Time PHQ-9 Depression Total Score: 13 06/29/2017 2:50 PM CD T documented as of this encounter Care Teams Crate Repairer Relationship Specialty Start Date End Date Viri Gallardo, PCP - General Nurse Practitioner 06/29/17 04/14/20 [place] [id number] [facility] [place] [address] Viri Gallardo, PCP - Assigned PCP 09/12/17 12/13/18 SEDIMENTATIONIST CERTIFIED MEDICAL ASSISTANT [address] [facility] [place] [address] Viri Gallardo, Assigned PCP 09/12/1709/16 SEDIMENTATIONIST CERTIFIED MEDICAL ASSISTANT [address] [facility] [place] [address] documented as of this encounter
--- OUTSIDE RECORDS SUMMARY | 2022-09-07 12:00 | XMS_ITS | Encounter Summary ---
:1995 Author Organization [place] Address [address] [place] [address] Care Team Providers Name Role Phone Viri Gallardo APRN, CNP Primary Care Provider [phone] Viri Gallardo APRN WHITE METAL CORROSION PROOFER Unavailable [phone] Viri Gallardo APRN, CNP Unavailable [phone] Reason for Referral Diagnostic Imaging XR - Closed Specialty Diagnoses / Procedures Referred By Contact Refer red To Contact Diagnoses Cough Josse Hassan, Procedures XR Chest 2 Views JAGDISH [address] [facility] [place] [address] Referral ID Status Reason Start Date Expiration Date Visits Requ ested Visits Authorized [id number] Closed 04/21/2018 04/21/2019 1 1 Reason for [...] Department Care Team Description [facility]/21/2018 [facility] Jesu Urbano PA-C [address] [place] [address] [place] [phone] Social History Tobacco Use Types Packs/Day Years [...] the original note were not included. SUBJECTIVE: oJel Amos is a 22 year old female [...] documented as of this encounter Care Teams Pearl Digger Relationship Specialty Start Date End Date Viri Gallardo, PCP - General Nurse Practitioner 06/29/17 04/14/20 ASSISTANT PROFESSOR OF ARCHAEOLOGY WHITE METAL CORROSION PROOFER [address] [facility] [place] [address] Viri Gallardo, PCP - Assigned PCP 09/12/17 12/13/18 ASSISTANT PROFESSOR OF ARCHAEOLOGY WHITE METAL CORROSION PROOFER [address] [facility] [place] [address] Viri Gallardo, Assigned PCP 09/12/1709/16 ASSISTANT PROFESSOR OF ARCHAEOLOGY WHITE METAL CORROSION PROOFER [address] [facility] [place] [address] documented as of this encounter
--- OUTSIDE RECORDS SUMMARY | 2022-09-07 12:00 | XMS_ITS | Encounter Summary ---
:1995 Author Organization [place] Address [address] [place] [address] Care Team Providers Name Role Phone Viri Gallrado APRN, CNP Primary Care Provider [phone] Viri Gallardo APRN [employer] Unavailable [phone] Viri Gallardo APRN, CNP Unavailable [phone] Reason for Visit Reason Comments Abdominal Pain Dizziness Encounter Details Date Type Department Care Team Description 09/15/2017 Emergency [facility] Pam Schmidt Abdomina l pain of unknown cause; [facility] Emergency MD Farzaneh Nonintractable episodic headache, unspec ified headache type; Dept [facility] Non-intractable vomiting wit h nausea, unspecified vomiting type; [address] [place] Intermittent confusion [place], [place] [address] [facility] [id number] [place] [address] [phone] (Wo rk) Social History Tobacco Use Types [...] Comments Blood Pressure 115/88 09/15/2017 1:31 PM INTERNATIONAL REPRESENTATIVE Pulse 58 09/15/2017 1:31 PM INTERNATIONAL REPRESENTATIVE Temperature 36.9 ??C (98.5 ??F) 09/15/2017 10:40 AM INTERNATIONAL REPRESENTATIVE Respiratory Rate 20 09/15/2017 10:40 AM INTERNATIONAL REPRESENTATIVE Oxygen Saturation 100% 09/15/2017 2:02 PM INTERNATIONAL REPRESENTATIVE Inhaled Oxygen Concentration - - Weight - - Height - - Body Mass Index - - documented in this encounter Discharge Instructions Discharge InstructionsPam Schmidt MD - 09/15/2017 2:02 PM INTERNATIONAL REPRESENTATIVE Images from the original note were not [...] directed by your provider today. Before using rtno-fvp-mubwrasudhwjpgguor, ask your provider and make sure to [...] symptoms appear. Date Last Reviewed: 04/05/2015 ?? [phone] [employer]. [address] [place] [address]. All rights reserved. This information is not intended as a substitute for professional medical care. Always follow your healthcare professional's instructions. RNATIONAL REPRESENTATIVE documented in this encounter Medications at Time of Discharge Medication Sig Dispensed Refills Start Date End Date dicyclomine (BENTYL) 20 Take 1 tablet (20 40 tablet 1 09/1509/24/2017 MG tablet mg) by mouth 4 times daily as needed LORazepam (ATIVAN) 0.5 MG Take 1 tablet (0.5 4 tablet 0 11/23/2017 tablet mg) by mouth every 8 hours as needed for anxiety or other (intractable nausea) Do not operate a vehicle after taking this medication GABAPENTIN PO Take 500 mg by mouth [...] She is alert and oriented, ABCs intact. RNATIONAL REPRESENTATIVE Pam Schmidt MD - 09/15/2017 10:35 AM [...] Department Course ECG (11:11:38): Rate 66 bpm. AR interval 142. QRS duration 90. QT/QTc 418/438. [...] and she should seek further assessment with [facility] as appropriate. I recommend [...] tablet, R-0, Local Print Anita Goldsmith 09/15/2017 [facility] EM[facility] I, Anita Goldsmith, am serving as a scribe at 10:56 AM on 09/15/2017 to document services personally performed by Pam Schmidt MD based on my observations and the provider's statements to me. Pam Schmidt MD 09/15/17 7705 RNATIONAL REPRESENTATIVE documented in this encounter Plan of Treatment Not on filedocumented as of this encounter Procedures Procedure Name Priority Date/Time Associated Comments Diagnosis CT ABDOMEN PELVIS W STAT 09/15/2017 1:29 PM Re sults for this CONTRAST INTERNATIONAL REPRESENTATIVE procedure are i n the results section. MR BRAIN W/O & W STAT 09/15/2017 1:10 PM Resul ts for this CONTRAST INTERNATIONAL REPRESENTATIVE procedure are i n the results section. HCG QUALITATIVE URINE STAT 09/15/2017 11:55 Re sults for this AM INTERNATIONAL REPRESENTATIVE procedure are i n the results section. ROUTINE UA WITH STAT 09/15/2017 11:55 Results for this MICROSCOPIC AM INTERNATIONAL REPRESENTATIVE procedure are i n the results section. CBC WITH PLATELETS & STAT 09/15/2017 11:27 Res ults for this DIFFERENTIAL AM INTERNATIONAL REPRESENTATIVE procedure are i n the results section. TSH STAT 09/15/2017 11:27 Results for this AM INTERNATIONAL REPRESENTATIVE procedure are i n the results section. LIPASE STAT 09/15/2017 11:27 Results for this AM INTERNATIONAL REPRESENTATIVE procedure are i n the results section. COMPREHENSIVE STAT 09/15/2017 11:27 Results fo r this METABOLIC PANEL AM INTERNATIONAL REPRESENTATIVE procedure ar e in the results section. EKG 12-LEAD, TRACING STAT 09/15/2017 11:11 Res ults for this ONLY AM INTERNATIONAL REPRESENTATIVE procedure are i n the results section. documented in this encounter Results CT Abdomen Pelvis w Contrast (09/15/2017 1:29 PM INTERNATIONAL REPRESENTATIVE) Anatomical Region Laterality Modality Abdomen/Pelvis, SUBRAD CT BODY, UMP CT ABDOMEN PELVIS, Computed Tomography RAD CT Specimen (Source) Anatomical Location Collection Method / Collectio n Time Received Time / Laterality Volume Impressions 09/15/2017 4:10 PM INTERNATIONAL REPRESENTATIVE IMPRESSION: No acute abnormality is identified to explain the patient's symptoms. JULEE SRIVASTAVA MD Narrative 09/15/2017 4:[address] ABDOMEN AND PELVIS WITH CONTRAST ?? [...] w/o & w Contrast (09/15/2017 1:10 PM INTERNATIONAL REPRESENTATIVE) Anatomical Region Laterality Modality Head, SUBRAD MR NEURO, UMP MR NEURO, RAD MR Magnetic Resonance Specimen (Source) Anatomical Location Collection Method / Collectio n Time Received Time / Laterality Volume Impressions 09/15/2017 3:01 PM INTERNATIONAL REPRESENTATIVE IMPRESSION: Normal brain MRI. GILMA VAZQUEZ MD Narrative 09/15/2017 3:01 PM INTERNATIONAL REPRESENTATIVE MRI OF THE BRAIN WITHOUT AND WITH [...] ORDERABLES HCG qualitative urine (09/15/2017 11:55 AM INTERNATIONAL REPRESENTATIVE) athologist Signature HCG Qual Urine Negative NEG^Negati 09/15/2017 [facility] 12:18 PM [facility] Comment: This test is for screening purposes. ??R esults should be interpreted along with the clinical picture. ??Confirmation te sting is available if warranted by ordering [id number], HCG Quantitative Pregna ncy. Specimen Anatomical Collection Method Collection Time Receive d Time (Source) Location / / Volume Laterality Urine specimen URINE SPECIMEN 09/15/2017 11:55 017 (specimen) OBTAINED BY CLEAN AM INTERNATIONAL REPRESENTATIVE 12:[address] CATCH PROCEDURE / Unknown Pam Schmidt MD LAB - URINE ORDERABLES Performing Organization Address City/State/ZIP Code Phon e Number [facility] [address] [address] [facility] [address] [address] [address], [facility] [phone] (ABNORMAL) UA with Microscopic (09/15/2017 11:55 AM INTERNATIONAL REPRESENTATIVE) [facility] gist Method Time Signature Color Urine Yellow 09/15/2017 [facility] 12:[address] [facility] Appearance Urine Clear 09/15/2017 [facility] 12:[address] [facility] Glucose Urine Negative NEG^Negat 09/15/2017 [facility] herrera mg/dL 12:[address] [facility] Bilirubin Urine Negative NEG^Negat 09/15/2017 [facility] herrera 12:[address] [facility] Ketones Urine Negative NEG^Negat 09/15/2017 [facility] herrera mg/dL 12:[address] [facility] Specific [place] 1.010 1.003 - 09/15/2017 [facility] Urine 1.035 12:[address] [facility] Blood Urine Trace (A) NEG^Negat 09/15/2017 [facility] herrera 12:[address] [facility] pH Urine 6.0 5.0 - 7.0 09/15/2017 [facility] pH 12:[address] [facility] Protein Albumin Negative NEG^Negat 09/15/2017 [facility] Urine herrera mg/dL 12:[address] [facility] Urobilinogen Negative 0.0 - 2.0 09/15/2017 [facility] mg/dL mg/dL 12:[address] [facility] Nitrite Urine Negative NEG^Negat 09/15/2017 [facility] herrera 12:[address] [facility] Leukocyte Negative NEG^Negat 09/15/[address] [facility] Esterase Urine herrera 12:[address] [facility] Source Midstream 09/15/2017 [facility] Urine 12:[address] [facility] WBC Urine 0 0 - 2 09/15/2017 [facility] /HPF 12:[address] [facility] RBC Urine 0 0 - 2 09/15/2017 [facility] /HPF 12:[address] [facility] Squamous <1 0 - 1 09/15/2017 [facility] Epithelial /HPF /HPF 12:28 PM [facility] Specimen (Source) Anatomical Collection Method Collection Time Re ceived Time Location / / Volume Laterality Examination of URINE SPECIMEN 09/15/2017 11:55 017 midstream urine OBTAINED BY CLEAN AM INTERNATIONAL REPRESENTATIVE 12:06 P [facility] specimen CATCH PROCEDURE / (procedure) Unknown Pam Schmidt MD LAB - URINE ORDERABLES Performing Organization Address City/State/ZIP Code Phon e Number [facility] [address] [place], [place] [address] [facility] [address] [place], [place] [address] [address], [facility] [phone] TSH (09/15/2017 11:27 AM INTERNATIONAL REPRESENTATIVE) P athologist Signature TSH 1.65 0.40 - 4.00 09/15/2017 [facility] mU/L 12:29 PM INTERNATIONAL REPRESENTATIVE HOSPITAL Specimen Anatomical Collection Method Collection Time Receive d Time (Source) Location / / Volume Laterality Blood specimen 09/15/2017 11:27 7 (specimen) AM INTERNATIONAL REPRESENTATIVE 11:48 AM INTERNATIONAL REPRESENTATIVE Pam Schmidt MD LAB - BLOOD ORDERABLES Performing Organization Address City/[facility]/ZIP [facility] edinson Casey [facility] [address] [place], [place] [address], [facility] [phone] Lipase (09/15/2017 11:27 AM INTERNATIONAL REPRESENTATIVE) athologist Signature Lipase 101 73 - 393 09/15/2017 [facility] U/L 12:22 PM INTERNATIONAL REPRESENTATIVE HOSPITAL Specimen Anatomical Collection Method Collection Time Receive d Time (Source) Location / / Volume Laterality Blood specimen 09/15/2017 11:27 7 (specimen) AM INTERNATIONAL REPRESENTATIVE 11:48 AM INTERNATIONAL REPRESENTATIVE Pam Schmidt MD LAB - BLOOD ORDERABLES Performing Organization Address City/[facility] Phon e Carmela [facility] [address] [place], [place] [address] [place] [address] [address] [place], [place] [address], [facility] [phone] (ABNORMAL) Comprehensive metabolic panel (09/15/2017 11:27 AM INTERNATIONAL REPRESENTATIVE) athologist Signature Sodium 139 133 - 144 09/15/2017 [place] mmol/L 12:22 PM [facility] Potassium 4.4 3.4 - 5.3 09/15/2017 [place] mmol/L 12:22 PM [facility] Chloride 107 94 - 109 09/15/2017 [facility] mmol/L 12:22 PM [facility] Carbon Dioxide 25 20 - 32 09/15/2017 [facility] mmol/L 12:22 PM [facility] Anion Gap 7 3 - 14 09/15/2017 [facility] mmol/L 12:22 PM [facility] Glucose 101 (H) 70 - 99 09/15/2017 [facility] mg/dL 12:22 PM [facility] Urea Nitrogen 11 7 - 30 09/15/2017 [facility] mg/dL 12:22 PM [facility] Creatinine 0.72 0.52 - 09/15/2017 [facility] 1.04 mg/dL 12:22 PM [facility] GFR Estimate >90 >60 09/15/2017 [facility] mL/min/1.7 12:[address] Comment: Non GFR Calc GFR Estimate If >90 >60 mL/min/1.7m2 09/15/2017 12:22 PM [facility] Comment: GFR Calc Calcium 9.0 8.5 - 10.1 mg/dL 09/15/2017 12:22 PM [facility] Bilirubin Total 0.4 0.2 - 1.3 mg/dL 09/15/2017 12:22 P [facility] Albumin 4.4 3.4 - 5.0 g/dL 09/15/2017 12:22 PM [facility] Protein Total 8.0 6.8 - 8.8 g/dL 09/15/2017 12:22 PM [facility] Alkaline Phosphatase 44 40 - 150 U/L 09/15/2017 12:22 PM [facility] ALT 21 0 - 50 U/L 09/15/2017 12:22 PM [facility] AST 9 0 - 45 U/L 09/15/2017 12:22 PM [facility] Specimen Anatomical Collection Method Collection Time Receive d Time (Source) Location / / Volume Laterality Blood specimen 09/15/2017 11:27 7 (specimen) AM INTERNATIONAL REPRESENTATIVE 11:48 AM INTERNATIONAL REPRESENTATIVE Pam Schmidt MD LAB - BLOOD ORDERABLES Performing Organization Address City/State/ZIP Code Phon e Number [facility] [address] [place], [place] [address] [phone] CBC with platelets differential (09/15/2017 11:27 AM [facility]) [facility] Method Time Signature WBC 8.0 4.0 - 09/15/2017 [facility] 11.0 11:56 AM [facility] 10e9/L [facility] RBC Count 4.88 3.8 - 5.2 09/15/2017 [facility] 10e12/L 11:[address] [facility] Hemoglobin 15.7 11.7 - 09/15/2017 [facility] 15.7 g/dL 11:[address] [facility] Hematocrit 46.5 35.0 - 09/15/2017 [facility] 47.0 % 11:[address] [facility] MCV 95 78 - 100 09/15/2017 [facility] fl 11:[address] [facility] MCH 32.2 26.5 - 09/15/2017 [facility] 33.0 pg 11:[address] [facility] MCHC 33.8 31.5 - 09/15/2017 [facility] 36.5 g/dL 11:[address] [facility] RDW 12.4 10.0 - 09/15/2017 [facility] 15.0 % 11:[address] [facility] Platelet Count 299 150 - 450 09/15/2017 [facility] 10e9/L 11:[address] [facility] Diff Method Automated 09/15/2017 [facility] Method 11:[address] [facility] % Neutrophils 51.3 % 09/15/2017 [facility] 11:[address] [facility] % Lymphocytes 36.1 % 09/15/2017 [facility] 11:[address] [facility] % Monocytes 8.1 % 09/15/2017 [facility] 11:[address] [facility] % Eosinophils 3.2 % 09/15/2017 [facility] 11:[address] [facility] % Basophils 1.1 % 09/15/2017 [facility] 11:[address] [facility] % Immature 0.2 % 09/15/2017 [facility] Granulocytes 11:[address] [facility] Nucleated RBCs 0 0 /100 09/15/2017 [facility] 11:[address] [facility] Absolute 4.1 1.6 - 8.3 09/15/2017 [facility] Neutrophil 10e9/L 11:[address] [facility] Absolute 2.9 0.8 - 5.3 09/15/2017 [facility] Lymphocytes 10e9/L 11:[address] [facility] Absolute 0.7 0.0 - 1.3 09/15/2017 [facility] Monocytes 10e9/L 11:[address] [facility] Absolute 0.3 0.0 - 0.7 09/15/2017 [facility] Eosinophils 10e9/L 11:[address] [facility] Absolute 0.1 0.0 - 0.2 09/15/2017 [facility] Basophils 10e9/L 11:[address] [facility] Abs Immature 0.0 0 - 0.4 09/15/2017 [facility] Granulocytes 10e9/L 11:[address] [facility] Absolute 0.0 09/15/2017 [facility] Nucleated RBC 11:[address] [facility] Specimen Anatomical Collection Method Collection Time Receive d Time (Source) Location / / Volume Laterality Blood specimen 09/15/2017 11:27 7 (specimen) AM INTERNATIONAL REPRESENTATIVE 11:48 AM INTERNATIONAL REPRESENTATIVE Pam Schmidt MD LAB - BLOOD ORDERABLES Performing Organization Address City/State/ZIP Code Phon e Number [place] [address] [phone] EKG 12 lead (09/15/2017 11:11 AM INTERNATIONAL REPRESENTATIVE) [facility] gist Method Time Signature Interpretation ECG Click View RADIOLOGY Image link RESULTS to view waveform and result Specimen (Source) Anatomical Collection Method Collection Time Re ceived Time Location / / Volume Laterality 09/15/2017 11:11 AM INTERNATIONAL REPRESENTATIVE Pam Schmidt MD ECG ORDERABLES Performing Organization Address City/State/ZIP [facility] Phon e Number RADIOLOGY RESULTS documented in [...] 1,000 mLs 1000 mL/hr Intravenous, 1,000 mL, INTERNATIONAL REPRESENTATIVE ONCE, at 1,000 mL/hr, Administer over 1 Hours, On Wed09/15/17 at 1046, For 1 dose 0.9% sodium chloride BOLUS New Bag 09/15/2017 1:20 PM INTERNATIONAL REPRESENTATIVE 54 mLs Intravenous, 1,000 mL, ONCE, On Wed09/15/17 at 1318, For 1 dose 0.9% sodium chloride infusion at 125 mL/hr, Intravenous, CONTINUOUS, A dminister after the bolus., Starting on Wed09/15/17 at 1046, Until Wed09/15/17 at 1617 gadobutrol (GADAVIST) injection 7.5 mL Given 09/15/2017 1:03 PM INTERNATIONAL REPRESENTATIVE 5 mLs 7.5 mL, Intravenous, ONCE, On Wed09/15/17 at 1230, For 1 dose iohexol (OMNIPAQUE) solution 25 mL Given 09/15/2017 11:38 AM INTERNATIONAL REPRESENTATIVE 25 mLs 25 mL, Oral, EVERY 30 MIN, First dose on Wed09/15/17 at 1115, For 2 doses iopamidol (ISOVUE-370) solution 500 mL Given 09/15/2017 1:20 PM INTERNATIONAL REPRESENTATIVE 57 mLs 500 mL, Intravenous, ONCE, On Wed09/15/17 at 1318, For 1 dose LORazepam (ATIVAN) injection 0.5 mg Given 09/15/2017 12:42 PM INTERNATIONAL REPRESENTATIVE 0.5 mg 0.5 mg, Intravenous, ONCE, On Wed09/15/17 at 1133, For 1 dose, For IV PUSH: Dilute with equal volume of NS. For ordered doses up to 4 mg give IV Push. Administer each 2mg over 1-5 minutes. documented in this encounter Active and Recently Administered Medications Times are shown in INTERNATIONAL REPRESENTATIVE. Scheduled Medication Order 09/13/2017 09/14/2017 09/15/2017 0.9% [...] Provider: Yuliana Hall) Intravenous, 1,000 mL, ONCE, On Wed09/15/17 at 1318, For 1 dose gadobutrol (GADAVIST) injection 7.5 mL (COMPLETED) 1303 (Given - Provider: Donald Mejia) 7.5 mL, Intravenous, ONCE, On Wed09/15/17 at 1230, For 1 dose iohexol (OMNIPAQUE) solution 25 mL 1138 (Given - Provider: Naya Camacho, ERROL)1145 (Due) 25 mL, Oral, EVERY 30 MIN, First dose on Wed09/15/17 at 1115, Fo r 2 doses iopamidol (ISOVUE-370) solution 500 mL (COMPLETED) 1320 (Given - Provider: Yuliana Hall - Comment: bulk) 500 mL, Intravenous, ONCE, On Wed09/15/17 at 1318, For 1 dose LORazepam (ATIVAN) injection 0.5 mg (COMPLETED) 1242 (Given - Provider: Naya Camacho, ERROL) 0.5 mg, Intravenous, ONCE, On Wed 7 at 1133, For 1 dose, For IV [...] documented as of this encounter Care Teams Skidder Relationship Specialty Start Date End Date Viri Gallardo, PCP - General Nurse Practitioner 06/29/17 04/14/[address] [place] [address] Viri Gallardo, PCP - Assigned PCP 09/12/17 12/13/[address] [place] [address] Viri Gallardo, Assigned PCP 09/12/1709/[address] [place] [address] documented as of this encounter
--- OUTSIDE RECORDS SUMMARY | 2022-09-07 12:00 | XMS_ITS | Encounter Summary ---
:1995 Author Organization [place] Address [address] [place] [address] Care Team Providers Name Role Phone Viri Gallardo APRN, CNP Primary Care Provider [phone] Viri Gallardo APRN RN PRIMARY CARE Unavailable [phone] Viri Gallardo APRN, CNP Unavailable [phone] Reason for Referral Diagnostic Imaging XR - Closed Specialty Diagnoses / Procedures Referred By Contact Refer red To Contact Diagnoses Rib pain on right side Josse Hassan, Procedures XR Ribs & Chest Right G/E 3 Views JAGDISH [address] [place] [address] [place] [address] Referral ID Status Reason Start Date Expiration Date Visits Requ ested Visits Authorized [id number] Closed 05/10/2018 05/10/2019 1 1 Reason for Visit Reason Comments Urgent Care Chest Pain right rib pain x wednesday morn ing. Possible blackout on wednesday. Patient has been coughing x 2 months Encounter Details Date Type Department Care Team Description 05/10/2018 Office Visit [facility] Josse Hassan Rib pain on right side Urgent Care Jesu Urbano PA-C (Primary Dx) [address] [place] [address] [place] [phone] Social History Tobacco Use Types Packs/Day Years [...] healthcare provider Date Last Reviewed: 09/10/2016 ?? [phone] [employer]. [address] [place] [address]. All rights reserved. This information is not [...] healthcare provider Date Last Reviewed: 09/10/2016 ?? [phone] [employer]. [address] [place] [address], [place] [address]. All rights reserved. This information is not [...] documented as of this encounter Care Teams Restorer L[employer] Textiles Relationship Specialty Start Date End Date Viri Gallardo PCP - General Nurse Practitioner 06/29/17 04/14/20 DEHYDRATION UNIT OPERATOR RN PRIMARY CARE [address] [facility] [address] [place], [place] [address] Viri Gallardo PCP - Assigned PCP 09/12/17 12/13/18 DEHYDRATION UNIT OPERATOR RN PRIMARY CARE [address] [facility] [place] [address] Viri Gallardo, Assigned PCP 09/12/1709/16 DEHYDRATION UNIT OPERATOR RN PRIMARY CARE [address] [facility] [place] [address] documented as of this encounter
--- OUTSIDE RECORDS SUMMARY | 2022-09-07 12:00 | XMS_ITS | Encounter Summary ---
:1995 Author Organization [facility] Address [address] [place] [address] Care Team Providers Name Role Phone Viri Gallardo APRN, CNP Primary Care Provider [phone] Viri Gallardo APRN, CNP Unavailable [phone] Viri Gallardo APRN, CNP Unavailable [phone] Reason for Visit Reason Onset Date Comments No Show No Show 09/23/2017 Encounter Details Date Type Department Care Team Description 09/23/2017 Office Visit [facility] Viri Gallardo NO SHOW (P rimary Dx) Clinic Jesu Nicole APRN [address] [facility] [address] [facility] [address] [facility] [place] [address] [place] [id number] Social History Tobacco Use Types Packs/Day Years [...] a no show for this scheduled appointment. 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 documented in this encounter Plan of Treatment Not on filedocumented as of this encounter Visit Diagnoses Diagnosis NO SHOW - Primary documented in this encounter Additional Health Concerns Assessment Noted Time PHQ-9 Depression Total Score: 13 06/29/2017 2:50 PM CD T documented as of this encounter Care Teams Ve Teacher Relationship Specialty Start Date End Date Viri Gallardo, PCP - General Nurse Practitioner 06/29/17 04/14/20 STEEL SHOT HEADER OPERATOR SPORTS BOOK SERVER [address] [facility] [place] [address] Viir Gallardo, PCP - Assigned PCP 09/12/17 12/13/18 STEEL SHOT HEADER OPERATOR SPORTS BOOK SERVER [address] [facility] [place] [address] Viri Gallardo, Assigned PCP 09/12/1709/16 STEEL SHOT HEADER OPERATOR SPORTS BOOK SERVER [address] [facility] [place] [address] documented as of this encounter
--- OUTSIDE RECORDS SUMMARY | 2022-09-07 12:01 | XMS_ITS | Encounter Summary ---
:1995 Author Organization [facility] Address [facility] [place] [address] Care Team Providers Name Role Phone Melissa Young MD Primary Care Provider [phone] Reason for Visit Reason Onset Date Comments No Show 06/17/2017 Encounter Details Date Type Department Care Team Description 06/17/2017 Office Visit [facility] Hector NO SHOW (Primary Dx) Clinic [place] Melissa Frey MD [address] [place] [id number] Social History Tobacco Use Types Packs/Day Years [...] documented as of this encounter Care Teams Acoustic Engineer Relationship Specialty Start Date End Date Melissa Young MD PCP - General Family Practice 06/16/17 06/28/17 [address] [place] [address] documented as of this encounter
--- OUTSIDE RECORDS SUMMARY | 2022-09-07 12:01 | XMS_ITS | Encounter Summary ---
:1995 Author Organization [place] Address [address] [place] [address] Care Team Providers Name Role Phone Viri Gallardo APRN, CNP Primary Care Provider [phone] Reason for Visit Reason Onset Date Comments Panel Management 08/13/2017 pap Encounter Details Date Type Department Care Team Description 08/13/2017 [facility] [place] Nicole APRN WEBMASTER [address] [facility] [address] [place] [address] [place] [id number] [phone] Social History Tobacco Use Types Packs/Day Years [...] 08/26/17 with Viri Gallardo. Aneta Varghese CMA FABRICATOR Telephone Encounter - Aneta Varghese MA - 08/19/2017 9:34 AM CST Called and left VM for patient to contact clinic. Patient needs pap & physical. Aneta Varghese CMA FABRICATOR Telephone Encounter - Aneta Varghese MA - [...] documented as of this encounter Care Teams Fire Chief'S Aide Relationship Specialty Start Date End Date Viri Gallardo APRN WEBMASTER PCP - General Nurse Practitioner 06/29/17 04/14/[address] [facility] [facility] [address] [address] [place], [place] [address] documented as of this encounter
--- OUTSIDE RECORDS SUMMARY | 2022-09-07 12:01 | XMS_ITS | Encounter Summary ---
:1995 Author Organization [place] Address [address] [place] [address] Care Team Providers Name Role Phone Viri Gallardo APRN, CNP Primary Care Provider [phone] Reason for Visit Reason Comments Musculoskeletal Problem right arm Diarrhea Encounter Details Date Type Department Care Team Description 07/22/2017 Office Visit [facility] Josse Hassan Diarrhea , unspecified type (Primary Dx); Clinic [place] Urbano PA-C Acute pain of right shoulder [address] [facility] [address] [place] [address] [place] [address] Social History Tobacco Use Types [...] take pain medicine as prescribed by [facility]. Follow-up care Follow up with [...] genital area Date Last Reviewed: 03/11/2016 ?? [phone] [employer]. [address] [place] [address], [place] [address]. All rights reserved. This information is not [...] worse. If taking medicines: ?? Don???t take ipbw-riy-okzmwku diarrhea or nausea medicines unless your healthcare [...] with soap and water and using alcohol-based barrel lathe operator inside is the best way to prevent the [...] Keep uncooked meats away from cooked and ktydj-fd-hbr foods. ?? Use a food thermometer when [...] with medicine Date Last Reviewed: 10/13/2015 ?? 9136-6702 [employer]. [address] [place] [address], [place] [address]. All rights reserved. 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 Aggravating factors include: [...] NEG^Negative Ketones Urine Negative NEG^Negative mg/dL Specific [place] Urine 1.015 1.003 - 1.035 Blood Urine [...] improve in 5-7 days Josse Hassan PA-C [facility] [place] documented in this encounter Plan of [...] Culture Aerobic Bacterial (07/22/2017 2:42 PM CDT) [facility] gist Method Time Signature Specimen Midstream [facility] Description Urine [facility] [place] Culture Micro No growth 07/23/2017 [facility] 4:37 PM CDT [facility] [place] Specimen (Source) Anatomical Collection Method Collection Time Re ceived Time Location / / Volume Laterality Examination of 07/22/2017 2:42 07/22/2017 5:07 midstream urine PM CDT PM CDT specimen (procedure) Josse Hassan PA-C LAB - MICRO GENERAL ORDE RABLES Performing Organization Address [facility] Phon e Number [address] [address] [phone] (ABNORMAL) Urine Microscopic (07/22/2017 2:42 PM CDT) Patholo gist Method Time Signature WBC Urine 2-5 (A) OTO2^O - 07/22/2017 [facility] 2 /HPF 3:47 PM CDT [facility]ICS [place] RBC Urine O - 2 OTO2^O - 07/22/2017 [facility] 2 /HPF 3:47 PM CDT [facility] [place] Squamous Moderate (A) FEW^Few 07/22/2017 [facility] Epithelial /LPF 3:47 PM CDT [facility] [place] /LPF Urine Bacteria Urine Moderate (A) NEG^Negat 07/22/2017 [facility] herrera /HPF 3:47 PM CDT [facility] [place] Specimen Anatomical Collection Method Collection Time Receive d Time (Source) Location / / Volume Laterality 07/22/2017 2:42 PM 7 2:43 CDT PM CDT Josse Hassan PA-C LAB - URINE ORDERABLES Performing Organization Address [facility] Code Phon e Number [address] [address] [phone] (ABNORMAL) UA reflex to Microscopic (07/22/2017 2:42 PM CDT) [facility] gist Method Time Signature Color Urine [...] mg/dL 3:47 PM CDT [facility] [place] Specific [place] 1.015 1.003 - [facility] 1.035 3:47 PM CDT CLIN[facility] [...] Organization Address City/State/ZIP Code Phon e Number [facility] [place] [address] [place] [address] CBC with platelets (07/22/2017 2:41 PM CDT) P athologist Signature WBC 9.3 4.0 - 11.0 07/22/2017 [facility] 10e9/L 3:21 PM CDT [facility] [place] RBC Count 4.38 3.8 - 5.2 07/22/2017 [facility] 10e12/L 3:21 PM CDT [facility] [place] Hemoglobin 14.4 11.7 - 07/22/2017 J[facility] 15.7 g/dL 3:21 PM CDT [facility] [place] Hematocrit 42.3 35.0 - 07/22/2017 [facility] 47.0 % 3:21 PM CDT [facility] [place] [...] Organization Address City/State/ZIP Code Phon e Number [facility] [address] [place] [address] Basic metabolic panel (Ca, Cl, CO2, Creat, Gluc, K, Na, BUN) (07/22/2017 2:41 PM CDT) athologist Signature Sodium 141 133 - 144 07/23/2017 [facility] mmol/L 9:32 AM CDT CLINICS [facility] Potassium 4.3 3.4 - 5.3 07/23/2017 [facility] mmol/L 9:32 AM CDT [facility] Chloride 108 94 - 109 07/23/2017 [facility] mmol/L 9:32 AM CDT [facility] Carbon Dioxide 26 20 - 32 07/23/2017 J[facility] mmol/L 9:32 AM CDT [facility] Anion Gap 7 3 - 14 07/23/2017 JV mmol/L 9:32 AM CDT [facility] Glucose 93 70 - 99 07/23/2017 JV mg/dL 9:32 AM CDT [facility] Urea Nitrogen 9 7 - 30 07/23/2017 JV mg/dL 9:32 AM CDT [facility] Creatinine 0.61 0.52 - 07/23/2017 JV 1.04 mg/dL 9:32 AM CDT [facility] GFR Estimate >90 >60 07/23/2017 [facility] mL/min/1.7 9:32 AM CDT CLINICS [address] Comment: Non GFR Calc GFR Estimate If >90 >60 mL/min/1.7m2 07/23/2017 9:32 A M [facility] Black CDT [facility] Comment: GFR Calc Calcium 8.9 8.5 - 10.1 mg/dL 07/23/2017 9:[address] [facility] Specimen Anatomical Collection Method Collection Time Receive d Time (Source) Location / / Volume Laterality Blood specimen 07/22/2017 2:41 PM 017 2:42 (specimen) CDT PM CDT Josse Hassan PA-C LAB - BLOOD ORDERABLES Performing Organization Address City/State/ZIP Code Phon e Number [facility] [address] [place] [address] documented in this encounter Visit Diagnoses Diagnosis Diarrhea, unspecified type - Primary Acute pain of right shoulder documented in this encounter Additional Health Concerns Assessment Noted Time PHQ-9 Depression Total Score: 13 06/29/2017 2:50 PM CD T documented as of this encounter Care Teams Egg Processing Supervisor Relationship Specialty Start Date End Date Viri Gallardo APRN KAI WHAKARURUHAU PCP - General Nurse Practitioner 06/29/17 04/14/20 [address] [facility] [place] [address] documented as of this encounter
--- OUTSIDE RECORDS SUMMARY | 2022-09-07 12:01 | XMS_ITS | Encounter Summary ---
:1995 Author Organization [place] Address [address] [place] [address] Care Team Providers Name Role Phone Viri Gallardo APRN SHELLFISH SHUCKER Primary Care Provider [phone] Reason for Visit Reason Comments RECHECK follow up Encounter Details Date Type Department Care Team Description 06/29/2017 Office Visit [facility] Viri Gallardo bron chitis, unspecified organism (Primary Dx); Clinic [place] Nicole APRN Encounter for smoking cessat ion counseling; [address] [facility] Need for prophylactic vaccination and in oculation against influenza [address] [facility] [address] [place] [address] [place] [id number] Social History Tobacco Use Types Packs/Day Years [...] SPLIT VIRUS IM > 3 YO (QUADRIVALENT) [53875], Vaccine Administration, Initial [89727] MAHENDRA Erickson-GENE. Injectable Influenza Immunization Documentation 1. [...] Guillain-Alvarez?? syndrome? No Form completed by Aneta Vraghese CMA documented in this encounter Nursing Notes [...] documented as of this encounter Care Teams Fisheries Technician Relationship Specialty Start Date End Date Viri Gallardo APRN SHELLFISH SHUCKER PCP - General Nurse Practitioner 06/29/17 04/14/20 [address] [facility] [place] [address] documented as of this encounter
--- OUTSIDE RECORDS SUMMARY | 2022-09-07 12:01 | XMS_ITS | Encounter Summary ---
:1995 Author Organization [place] Address [address] [place] [address] Care Team Providers Name Role Phone Melissa Young MD Primary Care Provider [phone] Viri Gallardo APRN CERTIFIED MIDWIFE Primary Care Provider [phone] Reason for Visit Reason Comments Fatigue doesn't feel good Encounter Details Date Type Department Care Team Description 06/22/2017 Office Visit [facility] Viri Gallardo bron chitis, unspecified organism (Primary Dx); Clinic [place] Nicole APRN Wheezing; [address] [place] CERTIFIED MIDWIFE Urinary tract infection without hematuri a, site unspecified; [address] [facility] Intractable chronic migraine without aura and without status migrainosus [address] [place] [address] [place] [id number] Social History Tobacco Use Types Packs/Day Years [...] No change in pattern or frequency. ROS: const/heent/resp/gu/house wirer helper/neuro otherwise negative OBJECTIVE: BP 102/60 Pulse 84 [...] Plan: *UA reflex to Microscopic and Culture ([place] and [facility] (except [place] and [place]), INHALATION/NEBULIZER TREATMENT, INITIAL, albuterol (PROAIR HFA/PROVENTIL HFA/VENTOLIN HFA) 108 (90 BASE) MCG/ACT Inhaler, albuterol (ACCUNEB) 1.25 MG/3ML nebulizer solution (N39.0) Urinary tract infection without hematuria, site unspecified Comment: Recent UTI. No dysuria but still having cramping, likely related to menses. Plan: Patient requesting repeat UA. (G43.289) Intractable chronic migraine without aura and without [...] following nebulizer treatment was given: MEDICATION: Duoneb HSE ADVISOR: [employer] LOT #: [id number] EXPIRATION DATE: 10/10/18 [facility] # [id number] Aneta Varghese CMA documented in this encounter [...] (ABNORMAL) Urine Microscopic (06/22/2017 10:45 AM CDT) [facility] Method Time Signature WBC Urine O - 2 OTO2^O - 06/22/2017 [facility] 2 /HPF 11:37 AM CDT CLINICS [place] RBC Urine 2-5 (A) OTO2^O - 06/22/2017 [facility] 2 /HPF 11:37 AM CDT CL[facility] [place] Squamous Moderate (A) FEW^Few 06/22/2017 [place] Epithelial /LPF 11:37 AM CDT CLINICS [place] /LPF Urine Bacteria Urine Moderate (A) NEG^Negat 06/22/2017 [facility] herrera /HPF 11:37 AM CDT CLINICS [place] Mucous Urine Present (A) NEG^Negat 06/22/2017 [facility] herrera /LPF 11:37 AM CDT CL[facility] [place] Specimen Anatomical Collection Method Collection Time Receive d Time (Source) Location / / Volume Laterality 06/22/2017 10:45 06/22/2017 AM CDT 10:54 AM CDT Viri Gallardo AREA COUNSELOR CERTIFIED MIDWIFE LAB - URINE ORDERABLES Performing Organization Address City/State/ZIP Code Phon e Number [facility] [place] [address] [place] [address] (ABNORMAL) *UA reflex to Microscopic and Culture ([place] [facility] ([facility] [place] [facility]) (06/22/2017 10:45 AM CDT) [facility] Method Time Signature Color Urine Yellow 06/22/2017 [facility] 11:37 AM CLINICS CDT [place] Appearance Urine Clear 06/22/2017 [facility] 11:37 AM CLINICS CDT [place] Glucose Urine Negative NEG^Negat 06/22/2017 [facility] herrera mg/dL 11:37 AM CLINICS CDT [place] Bilirubin Urine Negative NEG^Negat 06/22/2017 [place] herrera 11:37 AM CLINICS CDT [place] Ketones Urine Trace (A) NEG^Negat 06/22/2017 [facility] herrera mg/dL 11:37 AM CLINICS CDT [place] Specific [place] 1.020 1.003 - 06/22/2017 [facility] Urine 1.035 11:37 AM CLINICS CDT [place] Blood Urine Moderate (A) NEG^Negat 06/22/2017 [facility] herrera 11:37 AM CLINICS CDT [place] pH Urine 6.5 5.0 - 7.0 06/22/2017 [facility] pH 11:37 AM CLINICS CDT [place] Protein Albumin Negative NEG^Negat 06/22/2017 [facility] Urine herrera mg/dL 11:37 AM [facility] CDT [place] Urobilinogen 1.0 0.2 - 1.0 06/22/2017 [facility] Urine EU/dL 11:37 AM CLINICS CDT [place] Nitrite Urine Negative NEG^Negat 06/22/2017 [facility] herrera 11:37 AM [facility] CDT [place] Leukocyte Negative NEG^Negat 06/22/2017 [facility] Esterase Urine herrera 11:37 AM [facility] CDT [place] Source Midstream 06/22/2017 [facility] Urine 11:37 AM [facility] CDT [place] Specimen (Source) Anatomical Collection Method Collection Time Re ceived Time Location / / Volume Laterality Examination of 06/22/2017 10:45 7 midstream urine AM CDT 10:54 AM CDT specimen (procedure) Viri Gallardo APRN, CNP LAB - URINE ORDERABLES Performing Organization Address City/State/ZIP Code Phon e Number [facility] [place] [address] [facility] [place] [address] documented in this encounter Visit Diagnoses Diagnosis [...] documented as of this encounter Care Teams Engine Turner Relationship Specialty Start Date End Date Melissa Young MD PCP - General Family Practice 06/16/17 06/28/17 [address] [place] [address] Viri Gallardo APRN CNP PCP - General Nurse Practitioner 06/29/17 04/14/20 [address] [facility] [place] [address] documented as of this encounter
--- OUTSIDE RECORDS SUMMARY | 2022-09-07 12:01 | XMS_ITS | Encounter Summary ---
:1995 Author Organization [place] Address [address] [place] [address] Care Team Providers Name Role Phone Viri Gallardo APRN, CNP Primary Care Provider [phone] No Ref-Primary, Physician Primary Care Provider [phone] Viri Gallardo APRN PACKING AND FINAL ASSEMBLY SUPERVISOR Unavailable [phone] Viri Gallardo APRN PACKING AND FINAL ASSEMBLY SUPERVISOR Unavailable [phone] Ailyn Medina RN Unavailable Unavailable SamiViri APRN PACKING AND FINAL ASSEMBLY SUPERVISOR Unavailable [phone] Chasity Wild PA-C Unavailable [phone] Sami, Viri Nicole APRN PACKING AND FINAL ASSEMBLY SUPERVISOR Unavailable [phone] Kenisha Garcia APRN PACKING AND FINAL ASSEMBLY SUPERVISOR Unavailable [phone] Reason for Visit Reason Onset Date Comments Refill Request 07/26/2017 nicotine (NICODERM C Q) 14 MG/24HR 24 hr patch Encounter Details Date Type Department Care Team Description 07/26/2017 Refill [facility] Viri Gallardo Refill Req uest (nicotine Clinic Fred Nicole APRN CNP (NICODERM CQ) 14 MG/24HR [address] [place] [address] [facility] 24 hr patch) [facility] [address] [place] [address] [place] [address] [place] [address] [phone] Social History Tobacco Use Types Packs/Day Years [...] # refills: 0 Last Office Visit with [facility], [facility] or [facility] prescribing provider: 07/22/2017 BP Readings [...] documented as of this encounter Care Teams Examining Chair Assembler Relationship Specialty Start Date End Date Viri Gallardo PCP - General Nurse Practitioner 06/29/17 04/14/20 DORIAN Nicole PACKING AND FINAL ASSEMBLY SUPERVISOR [address] [facility] [place] [address] No Ref-Primary, PCP - General 04/15/20 Physician Viri Gallardo PCP - Assigned PCP 09/12/17 12/13/18 DORAIN Nicole [address] [place], [place] [phone] Viri Gallardo Nurse Practitioner 04/15/20 DORIAN Nicole [address] [place], [place] [phone] Ailyn Medina, RN Clinic Agent Telegrapher Primary Care - CC 07/08/18 07/08/18 Viri Gallardo Assigned PCP 09/12/17 09/16/19 DORIAN Nicole [address] [place], [place] [id number] Chasity Wild Assigned PCP 09/17/19 08/17/20 JAGDISH Romero [address] [facility] [address] [place], [place] [id number] Viri Gallardo Assigned PCP 08/18/20 04/24/21 DORIAN Nicole [address] [place] [phone] Kenisha Garcia Assigned PCP 04/25/21 DORIAN [place]yer PACKING AND FINAL ASSEMBLY SUPERVISOR [facility] [facility] [place] [address] documented as of this encounter
--- OUTSIDE RECORDS SUMMARY | 2022-09-07 12:01 | XMS_ITS | Encounter Summary ---
:1995 Author Organization [place] Address [address] [place] [address] Care Team Providers Name Role Phone Viri Gallardo APRN FREIGHT SHIPPING AGENT Primary Care Provider [phone] No Ref-Primary, Physician Primary Care Provider [phone] SamiViri bell APRN FREIGHT SHIPPING AGENT Unavailable [phone] SamiViri APRN FREIGHT SHIPPING AGENT Unavailable [phone] Ailyn Medina RN Unavailable Unavailable Sami, Viri Nicole APRN FREIGHT SHIPPING AGENT Unavailable [phone] Chasity Wild PA-C Unavailable [phone] Sami, Viri Nicole APRN FREIGHT SHIPPING AGENT Unavailable [phone] Kenisha Garcia ROD PULLER AND COILER FREIGHT SHIPPING AGENT Unavailable [phone] Encounter Details Date Type Department Care Team Description 07/23/2017 Result Follow Up [facility] Oz Hassan [facility] Jesu Urbano PA-C [address] [place] [address] [facility] [address] [address] [place] [address] [place] [address] [phone] Social History Tobacco Use Types Packs/Day Years [...] Pelayo CMA - 07/23/2017 5:28 PM CDT [phone] ([place]) Tried to call the number above and [...] documented as of this encounter Care Teams Protective Services Officer Relationship Specialty Start Date End Date Viri Gallardo PCP - General Nurse Practitioner 06/29/17 04/14/20 DORIAN Nicole FREIGHT SHIPPING AGENT [address] [facility] [place] [address] No Ref-Primary, PCP - General 04/15/20 Physician Viri Gallardo PCP - Assigned PCP 09/12/17 12/13/18 DORIAN Nicole FREIGHT SHIPPING AGENT [address] [facility] [place] [address] Viri Gallardo Nurse Practitioner 04/15/20 DORIAN Nicole FREIGHT SHIPPING AGENT [address] [facility] [place] [address] Ailyn Medina, [facility] Daily Release And Dupe Printer Primary Care - CC 07/08/18 07/08/18 Viri Gallardo Assigned PCP 09/12/17 09/16/19 DORIAN Nicole FREIGHT SHIPPING AGENT [address] [facility] [place] [address] Chasity Wild Assigned PCP 09/17/19 08/17/20 JAGDSIH Romero [address] [facility] [place] [address] Viri Gallardo Assigned PCP 08/18/20 04/24/21 DORIAN Nicole FREIGHT SHIPPING AGENT [address] [facility] [place] [id number] Kenisha Garcia Assigned PCP 04/25/21 DORIAN [place] FREIGHT SHIPPING AGENT [address] [facility] [place] [address] documented as of this encounter
--- OUTSIDE RECORDS SUMMARY | 2022-09-07 12:01 | XMS_ITS | Encounter Summary ---
:1995 Author Organization [place] Address [address] [place] [address] Care Team Providers Name Role Phone Viri Gallardo APRN, CNP Primary Care Provider [phone] Reason for Visit Reason Comments Vomiting Encounter Details Date Type Department Care Team Description 08/31/2017 Emergency [facility] Juanjo Melendrez A bdominal pain, generalized; [facility] Emergency Dep t Lightheadedness; [address] EMERGENCY PHYSICIANS [facility] [id number] [address] [facility] [phone] [place], [place] [address] (Wo rk) Social History [...] Comments Blood Pressure 108/57 08/31/2017 11:32 AM SHIRT FOLDING MACHINE OPERATOR Pulse 72 08/31/2017 8:00 AM SHIRT FOLDING MACHINE OPERATOR Temperature 36.3 ??C (97.4 ??F) 08/31/2017 8:00 AM SHIRT FOLDING MACHINE OPERATOR Respiratory Rate 16 08/31/2017 8:00 AM SHIRT FOLDING MACHINE OPERATOR Oxygen Saturation 97% 08/31/2017 11:32 AM SHIRT FOLDING MACHINE OPERATOR Inhaled Oxygen Concentration - - Weight 49.9 kg (110 lb) 08/31/2017 8:00 AM SHIRT FOLDING MACHINE OPERATOR Height 162.6 cm (5' 4) 08/31/2017 8:00 AM SHIRT FOLDING MACHINE OPERATOR Body Mass Index 18.88 08/31/2017 8:00 AM SHIRT FOLDING MACHINE OPERATOR documented in this encounter Discharge Instructions Discharge InstructionsJuanjo Melendrez MD - 08/31/2017 11:32 AM SHIRT FOLDING MACHINE OPERATOR Discharge Instructions Abdominal Pain Abdominal pain (belly [...] directed by your provider today. Before using [id number], ask your provider and make sure to [...] if there is anything that worries you. T FOLDING MACHINE OPERATOR documented in this encounter Medications at Time [...] a 04/19. Will discuss with Dr. Melendrez. T FOLDING MACHINE OPERATOR Garfield Sam RN - 08/31/2017 7:58 AM [...] from ECG dated 10/30/16. Rate 63 bpm. MA interval 130. QRS duration 96. QT/QTc 418/427. [...] PO 0944 Dilaudid 0.5 mg IV 1132 [place] 1 tablet PO Emergency Department Course: Nursing [...] to be taken at home as instructed. [facility] Diagnoses: None Discharge Medications: Discharge Medication List [...] observations and the provider's statements to me. [facility] EMERGENCY DEPARTMENT Juanjo Melendrez MD 08/31/17 2305 T FOLDING MACHINE OPERATOR documented in this encounter Plan of Treatment Not on filedocumented as of this encounter Procedures Procedure Name Priority Date/Time Associated Comments Diagnosis US PELVIC STAT 08/31/2017 10:55 Results for this TRANSABDOMINAL AND AM SHIRT FOLDING MACHINE OPERATOR procedure are in TRANSVAGINAL the results section. EKG 12-LEAD, TRACING STAT 08/31/2017 8:47 AM R esults for this ONLY SHIRT FOLDING MACHINE OPERATOR procedure are i n the results section. HCG QUALITATIVE URINE STAT 08/31/2017 8:40 AM Results for this SHIRT FOLDING MACHINE OPERATOR procedure are i n the results section. ROUTINE UA WITH STAT 08/31/2017 8:40 AM Result s for this MICROSCOPIC SHIRT FOLDING MACHINE OPERATOR procedure are i n the results section. BASIC METABOLIC PANEL STAT 08/31/2017 8:10 AM Results for this SHIRT FOLDING MACHINE OPERATOR procedure are i n the results section. CBC WITH PLATELETS STAT 08/31/2017 8:10 AM Res ults for this SHIRT FOLDING MACHINE OPERATOR procedure are i n the results section. documented in this encounter Results US Pelvic Complete with Transvaginal (08/31/2017 10:55 AM SHIRT FOLDING MACHINE OPERATOR) Anatomical Region Laterality Modality Abdomen/Pelvis Ultrasound Specimen (Source) Anatomical Location Collection Method / Collectio n Time Received Time / Laterality Volume Impressions 08/31/2017 3:27 PM SHIRT FOLDING MACHINE OPERATOR IMPRESSION: 1. IUD in the normal position. 2. Small amount of free fluid in the pel vis. Otherwise unremarkable. KM HENRY MD Narrative 08/31/2017 3:27 PM SHIRT FOLDING MACHINE OPERATOR ULTRASOUND ??PELVIC COMPLETE WITH TRANSVAGINAL IMAGING ?? [...] ORDERABLES EKG 12 lead (08/31/2017 8:47 AM SHIRT FOLDING MACHINE OPERATOR) Patholo gist Method Time Signature Interpretation ECG Click View RADIOLOGY Image link RESULTS to view waveform and result Specimen (Source) Anatomical Collection Method Collection Time Re ceived Time Location / / Volume Laterality 08/31/2017 8:47 AM SHIRT FOLDING MACHINE OPERATOR Juanjo Melendrez MD ECG ORDERABLES Performing Organization Address City/State/ZIP Code Phon e Number RADIOLOGY RESULTS HCG qualitative urine (08/31/2017 8:40 AM SHIRT FOLDING MACHINE OPERATOR) P athologist Signature HCG Qual Urine Negative NEG^Negati 08/31/2017 [facility] 9:23 AM [facility] Comment: This test is for screening purposes. ??R esults should be interpreted along with the clinical picture. ??Confirmation te sting is available if warranted by ordering [id number], HCG Quantitative Pregna ncy. Specimen Anatomical Collection Method Collection Time Receive d Time (Source) Location / / Volume Laterality Urine specimen URINE SPECIMEN 08/31/2017 8:40 AM 08/31 8:54 (specimen) OBTAINED BY CLEAN SHIRT FOLDING MACHINE OPERATOR AM SHIRT FOLDING MACHINE OPERATOR CATCH PROCEDURE / Unknown Juanjo Melendrez MD LAB - URINE ORDERABLES Performing Organization Address City/State/ZIP Code Phon e Number [place] [address] [place], [place] [address] [facility] [address] [phone] (ABNORMAL) UA with Microscopic (08/31/2017 8:40 AM [place]) [facility] Method Time Signature Color Urine Yellow 08/31/2017 [facility] 9:19 AM [facility] Appearance Urine Slightly 08/31/2017 [facility] Cloudy 9:19 AM [facility] Glucose Urine Negative NEG^Negat 08/31/2017 [facility] herrera mg/dL 9:19 AM [facility] Bilirubin Urine Negative NEG^Negat 08/31/2017 [facility] herrera 9:19 AM [facility] Ketones Urine Negative NEG^Negat 08/31/2017 [facility] herrera mg/dL 9:19 AM [facility] Specific [place] 1.026 1.003 - 08/31/2017 [facility] Urine 1.035 9:19 AM [facility] Blood Urine Small (A) NEG^Negat 08/31/2017 [facility] herrera 9:19 AM [facility] pH Urine 5.0 5.0 - 7.0 08/31/2017 [facility] pH 9:19 AM [facility] Protein Albumin Negative NEG^Negat 08/31/2017 [facility] Urine herrera mg/dL 9:19 AM [facility] Urobilinogen 0.0 0.0 - 2.0 08/31/2017 [facility] mg/dL mg/dL 9:19 AM [facility] Nitrite Urine Negative NEG^Negat 08/31/2017 [facility] herrera 9:19 AM [facility] Leukocyte Negative NEG^Negat 08/31/2017 [facility] Esterase Urine herrera 9:19 AM [facility] Source Midstream 08/31/2017 [facility] Urine 8:55 AM [facility] WBC Urine 1 0 - 2 08/31/2017 [facility] /HPF 9:19 AM [facility] RBC Urine 3 (H) 0 - 2 08/31/2017 [facility] /HPF 9:19 AM [facility] Bacteria Urine Few (A) NEG^Negat 08/31/2017 [facility] herrera /HPF 9:19 AM [facility] Squamous 2 (H) 0 - 1 08/31/2017 [facility] Epithelial /HPF /HPF 9:19 AM [facility] Mucous Urine Present (A) NEG^Negat 08/31/2017 [place] herrera /LPF 9:19 AM [facility] Specimen (Source) Anatomical Collection Method Collection Time Re ceived Time Location / / Volume Laterality Examination of URINE SPECIMEN 08/31/2017 8:40 08/31/20 17 8:54 midstream urine OBTAINED BY CLEAN AM SHIRT FOLDING MACHINE OPERATOR AM [facility] specimen CATCH PROCEDURE / (procedure) Unknown Juanjo Melendrez MD LAB - URINE ORDERABLES Performing Organization Address City/State/ZIP Code Phon e Number [place] [address] [place] [address] [facility] [address] [phone] Basic metabolic panel (BMP) (08/31/2017 8:10 AM SHIRT FOLDING MACHINE OPERATOR) athologist Signature Sodium 137 133 - 144 08/31/2017 [place] mmol/L 8:43 AM [facility] Potassium 4.0 3.4 - 5.3 08/31/2017 [place] mmol/L 8:43 AM [facility] Chloride 105 94 - 109 08/31/2017 [facility] mmol/L 8:43 AM [facility] Carbon Dioxide 27 20 - 32 08/31/2017 [place] mmol/L 8:43 AM [facility] Anion Gap 5 3 - 14 08/31/2017 [place] mmol/L 8:43 AM [facility] Glucose 97 70 - 99 08/31/2017 [place] mg/dL 8:43 AM [facility] Urea Nitrogen 10 7 - 30 08/31/2017 [place] mg/dL 8:43 AM [facility] Creatinine 0.68 0.52 - 08/31/2017 [facility] 1.04 mg/dL 8:43 AM [facility] GFR Estimate >90 >60 08/31/2017 [facility] mL/min/1.7 8:[address] Comment: Non GFR Calc GFR Estimate If >90 >60 mL/min/1.7m2 08/31/2017 8:43 A [facility] Comment: GFR Calc Calcium 9.0 8.5 - 10.1 mg/dL 08/31/2017 8:43 AM [facility] Specimen Anatomical Collection Method Collection Time Receive d Time (Source) Location / / Volume Laterality Blood specimen 08/31/2017 8:10 AM 017 8:19 (specimen) SHIRT FOLDING MACHINE OPERATOR AM SHIRT FOLDING MACHINE OPERATOR Juanjo Melendrez MD LAB - BLOOD ORDERABLES Performing Organization Address City/State/ZIP Code Phon e Number [place] [address] [place], [place] [address] [phone] [facility] [address] [place], [place] [address] [place] [address] CBC (platelets, no diff) (08/31/2017 8:10 AM SHIRT FOLDING MACHINE OPERATOR) athologist Signature WBC 8.5 4.0 - 11.0 08/31/2017 [facility] 10e9/L 8:24 AM [facility] RBC Count 4.69 3.8 - 5.2 08/31/2017 [facility] 10e12/L 8:24 AM [facility] Hemoglobin 15.1 11.7 - 08/31/2017 [facility] 15.7 g/dL 8:24 AM [facility] Hematocrit 45.3 35.0 - 08/31/2017 [facility] 47.0 % 8:24 AM [facility] MCV 97 78 - 100 08/31/2017 [facility] fl 8:24 AM [facility] MCH 32.2 26.5 - 08/31/2017 [facility] 33.0 pg 8:24 AM [facility] MCHC 33.3 31.5 - 08/31/2017 [facility] 36.5 g/dL 8:24 AM [facility] RDW 12.6 10.0 - 08/31/2017 [facility] 15.0 % 8:24 AM [facility] Platelet Count 290 150 - 450 08/31/2017 [facility] 10e9/L 8:24 AM [facility] Specimen Anatomical Collection Method Collection Time Receive d Time (Source) Location / / Volume Laterality Blood specimen 08/31/2017 8:10 AM 017 8:19 (specimen) SHIRT FOLDING MACHINE OPERATOR AM SHIRT FOLDING MACHINE OPERATOR Juanjo Melendrez MD LAB - BLOOD ORDERABLES Performing Organization Address City/State/ZIP [facility] Phon e Number M [facility] [address] [place], [place] [address] [facility] [address] [place], [place] [address] [place] [address] documented in this encounter Visit Diagnoses Diagnosis Abdominal pain, generalized Lightheadedness Dizziness and giddiness Nausea Nausea alone documented in this encounter Administered Medications Inactive Administered Medications - up to 3 most recent administrations Medication Order MAR Action Action Date Dose Rate Site HYDROcodone-acetaminophen Given 08/31/2017 11:32 AM SHIRT FOLDING MACHINE OPERATOR 1 tablet (NORCO) 5-325 MG per tablet 1 tablet 1 tablet, Oral, ONCE, On Wed08/31/17 at 1126, For 1 dose, Maximum acetaminophen dose from all sources= 75 mg/kg/day not to exceed 4 grams HYDROmorphone (PF) (DILAUDID) injection 0.5 Given 08/31/2017 9:44 AM SHIRT FOLDING MACHINE OPERATOR 0.5 mg mg 0.5 mg, Intravenous, ONCE, On Wed08/31/17 at 0927, For 1 dose, Give IV Push undiluted up to 4 mg. Each 2mg over 2-5 minutes. lidocaine (viscous) (XYLOCAINE) 2 % 15 mL, Given 08/31/2017 9:43 AM SHIRT FOLDING MACHINE OPERATOR 30 mLs alum & mag hydroxide-simethicone (MYLANTA ES/MAALOX ES) 15 mL GI Cocktail 30 mL, Oral, ONCE, On Wed08/31/17 at 0927, For 1 dose ondansetron (ZOFRAN) injection 4 mg Given 08/31/2017 8:17 AM SHIRT FOLDING MACHINE OPERATOR 4 mg 4 mg, Intravenous, ONCE, Administer over 2-5 Minutes, On Wed08/31/17 at 0805, For 1 dose, Irritant. For ordered doses up to 4 mg, give IV Push undiluted over 2-5 minutes. documented in this encounter Active and Recently Administered Medications Times are shown in SHIRT FOLDING MACHINE OPERATOR. Scheduled Medication Order 08/29/2017 08/30/2017 08/31/2017 HYDROcodone-acetaminophen [...] documented as of this encounter Care Teams Special Investigation Unit Investigator Relationship Specialty Start Date End Date Viri Gallardo APRN CNP PCP - General Nurse Practitioner 06/29/17 04/14/20 [address] [facility] [place] [address] documented as of this encounter
--- OUTSIDE RECORDS SUMMARY | 2022-09-07 12:01 | XMS_ITS | Encounter Summary ---
:1995 Author Organization [facility] Address [address] [place] [address]. [place] [address] Care Team Providers Name Role Phone Kalin Suh MD Primary Care Provider Reason for Visit Reason Comments ER F/U f/u ER, was seen Gloria Ulrich on 08/01/2017 for urinary symptoms, currently c/o nauseated, vomiting, abd ominal pain and vaginal d/c Encounter Details Date Type Department Care Team Description 06/08/[address] [facility], Acute c ystitis with hematuria (Primary Dx); [facility] Melissa Frey MD Nonspecific finding on examination of ur ine; [address] [place] [address] [place]; [place], [place] Nausea [phone] Social History Tobacco Use Types Packs/Day Years [...] 1 See Patient Instructions Melissa Young MD [facility] documented in this encounter Nursing Notes Nitza Pugh CMA - 06/08/2017 2:15 PM CDT Chief Complaint Patient presents with ??? ER F/U f/u ER, was seen [facility] ER on 08/01/2017 for urinary symptoms, [...] (52.2 kg). Medication Reconciliation: complete Nitza Pugh/[facility] documented in this encounter Plan of [...] Patholo gist Method Time Signature Specimen [facility]agina [facility] Description [facility] Wet Prep No yeast seen 06/08/2017 [facility] 2:46 PM CDT [facility] Wet Prep No clue cells 06/08/2017 [facility] seen 2:46 PM CDT [facility] Wet Prep No Trichomonas 06/08/2017 [facility] seen 2:46 PM CDT [facility] Specimen Anatomical Collection Method Collection Time Receive d Time (Source) Location / / Volume Laterality Specimen from 06/08/2017 2:33 PM 06/08/20 17 2:34 vagina CDT PM CDT (specimen) Melissa Young MD LAB - MICRO GENERAL ORDThuy FINNEY Performing Organization Address City/[facility] Phon e Number [facility] [address] [place] [address] Urine Culture Aerobic Bacterial (06/08/2017 2:22 PM CDT) [facility] gist Method Time Signature Specimen Midstream INFECTIOUS Description Urine DISEASE DIAGNOSTIC LABORATORY Culture Micro 10,000 to 50,000 colonies/mL 017 INFECTIOUS mixed urogenital jeffery 2:21 PM CDT [facility] Specimen (Source) Anatomical Collection Method Collection Time Re ceived Time Location / / Volume Laterality Examination of 06/08/2017 2:22 06/08/2017 2:36 midstream urine PM CDT PM CDT specimen (procedure) Melissa Young MD LAB - MICRO GENERAL MAME FINNEY Performing Organization Address City/[facility] Phon e Number INFECTIOUS DISEASES [address] [place] [address] DIAGNOSTIC LABORATORY, [facility] INFECTIOUS DISEASE [address] [place] [address], [facility] DIAGNOSTIC LABORATORY (ABNORMAL) Urine Microscopic (06/08/2017 2:22 PM CDT) Patholo gist Method Time Signature WBC Urine 10-25 (A) OTO2^O - 06/08/2017 [facility] 2 /HPF 2:35 PM CDT [facility] RBC Urine 5-10 (A) OTO2^O - 06/08/2017 [facility] 2 /HPF 2:35 PM CDT [facility] Squamous Many (A) FEW^Few 06/08/2017 [place] Epithelial /LPF 2:35 PM CDT [facility] APPLE /LPF Urine VALLEY Bacteria Urine Moderate (A) NEG^Negat 06/08/2017 [place] herrera /HPF 2:35 PM CDT [facility] Mucous Urine Present (A) NEG^Negat 06/08/2017 [place] herrera /LPF 2:35 PM CDT [facility] Specimen Anatomical Collection Method Collection Time Receive d Time (Source) Location / / Volume Laterality 06/08/2017 2:22 PM 7 2:28 CDT PM CDT Melissa Young MD LAB - URINE ORDERABLES Performing Organization Address City/State/ZIP Code Phon e Number [facility] [address] [place] [address] documented in this encounter Visit Diagnoses Diagnosis [...] as of this encounter Care Teams Photographic Plate Maker Relationship Specialty Start Date End Date Kalin Suh MD PCP - General Family Practice 07/04/16 06/15/17 [address] [place] [address] documented as of this encounter
--- OUTSIDE RECORDS SUMMARY | 2022-09-07 12:01 | XMS_ITS | Encounter Summary ---
:1995 Author Organization [place] Address [address] [place] [address] Care Team Providers Name Role Phone Viri Gallardo APRN, CNP Primary Care Provider [phone] No Ref-Primary, Physician Primary Care Provider [phone] Viri Gallardo APRN POWER NUT RUNNER OPERATOR Unavailable [phone] Viri Gallardo APRN POWER NUT RUNNER OPERATOR Unavailable [phone] Ailyn Medina RN Unavailable Unavailable SamiViri APRN POWER NUT RUNNER OPERATOR Unavailable [phone] Chasity Wild PA-C Unavailable [phone] Sami, Viri Nicole APRN POWER NUT RUNNER OPERATOR Unavailable [phone] Kenisha Garcia APRN POWER NUT RUNNER OPERATOR Unavailable [phone] Reason for Visit Reason Onset Date Comments Refill Request 08/23/2017 nicotine (NICODERM C Q) 14 MG/24HR 24 hr patch Encounter Details Date Type Department Care Team Description 08/23/2017 Refill [facility] Viri Gallardo Refill Req uest (nicotine Clinic Jesu Nicole APRN CNP (NICODERM CQ) 14 MG/24HR [address] [facility] 24 hr patch) [facility] [address] [place] [address] [place] [address] [phone] Social History Tobacco Use Types Packs/Day Years [...] # refills: 0 Last Office Visit with [facility] or [facility] prescribing provider: 06/29/17 Per office appointment note- Encounter for smoking cessation counseling Comment: Smoking 0.75 PPD. Not mentally stable enough for Chantix. Plan: nicotine (NICODERM CQ) 14 MG/24HR 24 hr patch. Opted to dose down given weight. Encouraged the patch plus method. Counseling given. She has gum at home. Discussed r/b/se. Next 5 appointments (look out 90 days) Aug 26, 2017 3:40 PM PILE DRIVING SUPERINTENDENT PHYSICAL with Viri Gallardo APRN CNP [facility] [address] [place] [address] [place] [phone] BP Readings from Last 3 Encounters: 07/22/17 110/70 06/29/17 104/64 06/22/17 102/60 Robyn Blanchard RN DRIVING SUPERINTENDENT Telephone Encounter - Estrella Raymond - 08/23/2017 11:10 AM CST SHERRI 07/22/2017 DRIVING SUPERINTENDENT documented in this encounter Plan of Treatment Not on filedocumented as of this encounter Visit Diagnoses Diagnosis Encounter for smoking cessation counseli ng Counseling on substance use and abuse documented in this encounter Additional Health Concerns Assessment Noted Time PHQ-9 Depression Total Score: 13 06/29/2017 2:50 PM CD T documented as of this encounter Care Teams Ct Scan Tech Relationship Specialty Start Date End Date Viri Gallardo PCP - General Nurse Practitioner 06/29/17 04/14/20 DORIAN Nicole [facility] [address] [facility] [place] [address] No Ref-Primary, PCP - General 04/15/20 Physician Viri Gallardo PCP - Assigned PCP 09/12/17 12/13/18 DORIAN Nicole [address] [place] [address] Viri Gallardo Nurse Practitioner 04/15/20 DORIAN Nicole [facility] [address] [facility] [place] [address] Ailyn Medina, RN Clinic Mutuel Machine Operator Primary Care - CC 07/08/18 07/08/18 Viri Gallardo Assigned PCP 09/12/17 09/16/19 DORIAN Nicole [facility] [address] [facility] [place] [address] Chasity Wild Assigned PCP 09/17/19 08/17/20 JAGDISH Romero [address] [place] [address] [place] [address] Viri Gallardo Assigned PCP 08/18/20 04/24/21 DORIAN Nicole POWER NUT RUNNER OPERATOR [address] [facility] [place] [address] Kenisha Garcia Assigned PCP 04/25/21 DORIAN Sawyer POWER NUT RUNNER OPERATOR [address] [facility] [place] [address] documented as of this encounter
--- OUTSIDE RECORDS SUMMARY | 2022-09-07 12:01 | XMS_ITS | Encounter Summary ---
:1995 Author Organization [place] Address [address] [place] [address] Care Team Providers Name Role Phone Suhail Bar APRN AIRWAYS CONTROL SPECIALIST Primary Care Provider [phone] Reason for Visit Reason Comments Physical Encounter Details Date Type Department Care Team Description 08/26/[address] [facility] Suhail Bar [facility] car e maintenance (Primary Dx); Clinic Jesu Nicole APRN Abdominal pain, generalized; [address] AIRWAYS CONTROL SPECIALIST Loss of weight; [address] [facility] Rash; [address] [facility] [address] Tobacco abuse [place] [phone] [place] [address] Social History Tobacco Use [...] Comments Blood Pressure 122/68 08/26/2017 3:58 PM LIFT OPERATOR Pulse 86 08/26/2017 3:58 PM LIFT OPERATOR Temperature 36.4 ??C (97.6 ??F) 08/26/2017 3:58 PM LIFT OPERATOR Respiratory Rate - - Oxygen Saturation 99% 08/26/2017 3:58 PM LIFT OPERATOR Inhaled Oxygen Concentration - - Weight 50.3 kg (110 lb 14.4 oz) 08/26/2017 3:58 PM LIFT OPERATOR Height 163.2 cm (5' 4.25) 08/26/2017 3:58 PM LIFT OPERATOR Body Mass Index 18.89 08/26/2017 3:58 PM LIFT OPERATOR documented in this encounter Patient Instructions [...] healthcare provider Date Last Reviewed: 06/10/2015 ?? [phone] [employer]. [address] [place] [address]. All rights reserved. This information is not [...] ease constipation. Date Last Reviewed: 04/10/2016 ?? [phone] [employer]. [address] [place] [address], [place] [address]. All rights reserved. This information is not intended as a substitute for professional medical care. Always follow your healthcare professional's instructions. ??? OPERATOR documented in this encounter Progress Notes [...] Prophylaxis Lung CA Screening Suhail Bar APRN [facility] OPERATOR documented in this encounter Nursing Notes [...] kg). Medication Reconciliation: complete Aneta Varghese CMA OPERATOR documented in this encounter Plan of Treatment Not on filedocumented as of this encounter Procedures Procedure Name Priority Date/Time Associated Diagnosis Comme nts HPV HIGH RISK TYPES Routine 08/26/2017 4:37 PM Health care Re sults for this DNA CERVICAL LIFT OPERATOR maintenance procedure are i n the results section. CBC WITH PLATELETS & Routine 08/26/2017 4:36 PM Loss of weight Results for this DIFFERENTIAL LIFT OPERATOR procedure are i n the results section. TSH WITH FREE T4 Routine 08/26/2017 4:36 PM Loss of weight Res ults for this REFLEX LIFT OPERATOR procedure are i n the results section. PAP IMAGED THIN LAYER Routine 08/26/2017 4:19 PM Health care Results for this SCREEN LIFT OPERATOR maintenance procedure are i n the results section. documented in this encounter Results (ABNORMAL) HPV High Risk Types DNA Cervical (08/26/2017 4:37 PM LIFT OPERATOR) [facility] Method Time Signature HPV 16 DNA Negative NEG^Negat 09/06/2017 [facility] herrera 7:32 AM LIFT OPERATOR [facility] HPV 18 DNA Negative NEG^Negat 09/06/2017 [facility] herrera 7:32 AM LIFT OPERATOR [facility] Other HR HPV Positive (A) NEG^Negat 09/06/2017 [facility] herrera 7:32 AM [facility] Final This patient's sample is pos itive for other HR HPV DNA (types 31, 33, 35, 39, 45, 51, 52, 09/06/2017 [facility] Diagnosis 56, 58, 59, 66 or 68), not H PV 16 or HPV 18 DNA. This result requires clinical correlation 7:32 AM [facility] with concurrent cytology findings. [facility] Comment: (Note) METHODOLOGY: ??The Latisha keila [address] [...] its performa nce characteristics determined by the [facility], Molecular Diagnostics Laboratory. It has not been cleared or approved by the FDA. The laboratory is regulated under C ABDOUL as qualified to perform high-complexity testing. This test is us ed for clinical purposes. It should not be regarded as investigationa l or for research. Specimen Description Cervical Cells 09/03/2017 9:1 8 AM [facility] Comment: [id number] Specimen Anatomical Collection Method Collection Time Receive d Time (Source) Location / / Volume Laterality Cervical Cells 08/26/2017 4:37 PM 017 4:40 LIFT OPERATOR PM LIFT OPERATOR Suhail Bar DESIGN ASSISTANT AIRWAYS CONTROL SPECIALIST LAB - BLOOD ORDERABLES Performing Organization Address City/State/ZIP Code Phon e Number [facility] [address] [place] [address] [facility] TSH with free T4 reflex (08/26/2017 4:36 PM LIFT OPERATOR) athologist Signature TSH 0.94 0.40 - 4.00 08/28/2017 [facility] mU/L 1:06 PM LIFT OPERATOR [facility] Specimen Anatomical Collection Method Collection Time Receive d Time (Source) Location / / Volume Laterality Blood specimen 08/26/2017 4:36 PM 017 4:38 (specimen) LIFT OPERATOR PM LIFT OPERATOR Suhail Bar DESIGN ASSISTANT AIRWAYS CONTROL SPECIALIST LAB - BLOOD ORDERABLES Performing Organization Address City/State/ZIP Code Phon e Number [facility] [address] [place] [address] (ABNORMAL) CBC with platelets differential (08/26/2017 4:36 PM LIFT OPERATOR) [facility] Method Time Signature WBC 11.3 (H) 4.0 - 08/26/2017 [facility] 11.0 7:16 PM LIFT OPERATOR CLINICS 10e9/L [facility] RBC Count 4.53 3.8 - 5.2 08/26/2017 [facility] 10e12/L 7:16 PM LIFT OPERATOR [facility]ICS [facility] Hemoglobin 15.0 11.7 - 08/26/2017 [facility] 15.7 g/dL 7:16 PM LIFT OPERATOR [facility] Hematocrit 43.9 35.0 - 08/26/2017 [facility] 47.0 % 7:16 PM LIFT OPERATOR [facility]ICS [facility] MCV 97 78 - 100 08/26/2017 [facility] fl 7:16 PM LIFT OPERATOR [facility] MCH 33.1 (H) 26.5 - 08/26/2017 [facility] 33.0 pg 7:16 PM LIFT OPERATOR [facility] MCHC 34.2 31.5 - 08/26/2017 [facility] 36.5 g/dL 7:16 PM LIFT OPERATOR [facility] RDW 12.4 10.0 - 08/26/2017 [facility] 15.0 % 7:16 PM LIFT OPERATOR [facility]ICS [facility] Platelet Count 268 150 - 450 08/26/2017 [facility] 10e9/L 7:16 PM LIFT OPERATOR [facility]ICS [facility] Diff Method Automated 08/26/2017 [facility] Method 7:16 PM LIFT OPERATOR [facility]ICS [facility] % Neutrophils 55.0 % 08/26/2017 [facility] 7:16 PM LIFT OPERATOR [facility]ICS [facility] % Lymphocytes 33.7 % 08/26/2017 [facility] 7:16 PM LIFT OPERATOR [facility]ICS [facility] % Monocytes 8.2 % 08/26/2017 [facility] 7:16 PM LIFT OPERATOR [facility]ICS [facility] % Eosinophils 2.8 % 08/26/2017 [facility] 7:16 PM LIFT OPERATOR [facility] % Basophils 0.3 % 08/26/2017 [facility] 7:16 PM LIFT OPERATOR [facility]ICS [facility] Absolute 6.2 1.6 - 8.3 08/26/2017 [facility] Neutrophil 10e9/L 7:16 PM LIFT OPERATOR [facility]ICS [facility] Absolute 3.8 0.8 - 5.3 08/26/2017 [facility] Lymphocytes 10e9/L 7:16 PM LIFT OPERATOR [facility]ICS [facility] Absolute 0.9 0.0 - 1.3 08/26/2017 [facility] Monocytes 10e9/L 7:16 PM LIFT OPERATOR [facility]ICS [facility] Absolute 0.3 0.0 - 0.7 08/26/2017 [facility] Eosinophils 10e9/L 7:16 PM LIFT OPERATOR [facility]ICS [facility] Absolute 0.0 0.0 - 0.2 08/26/2017 [facility] Basophils 10e9/L 7:16 PM LIFT OPERATOR [facility] Specimen Anatomical Collection Method Collection Time Receive d Time (Source) Location / / Volume Laterality Blood specimen 08/26/2017 4:36 PM 017 4:38 (specimen) LIFT OPERATOR PM LIFT OPERATOR Suhail Bar DESIGN ASSISTANT AIRWAYS CONTROL SPECIALIST LAB - BLOOD ORDERABLES Performing Organization Address City/State/ZIP Code Phon e Number [facility] [address] [place] [address] (ABNORMAL) Pap imaged thin layer screen with HPV - recommended age 30 - 65 (08/26/2017 4:19 PM LIFT OPERATOR) Component Value Ref Test Analysis Performed At [facility] Range Method Time Signature PAP LSIL (A) COPATH Copath Report [facility] Patient Name: JOEL AMOS MR#: [id number] Specimen #: [id number] Collected: 08/26/2017 Received: 08/30/2017 Reported: 09/01/2017 15:18 [...] Logan Grover M.D. Processed and screened at [facility] CLINICAL HISTORY: Papanicolaou Test Limitations: ??Cervical cytology is a scre ening test with limited sensitivity; regular screening is critical for cancer prevention; Pap tests are primarily effective for the diagnosis/prevention of squamous cell carcinoma, not adenoca rcinomas or other cancers. TESTING LAB LOCATION: [address] ??[id number] COLLECTION SITE: Client: ??[facility] Location: [facility] (R) Specimen (Source) Anatomical Collection Method Collection Time Re ceived Time Location / / Volume Laterality Cytologic 08/26/2017 4:19 08/30/2017 material PM LIFT OPERATOR 12:24 PM LIFT OPERATOR (specimen) Suhail Bar APRN, CNP LAB - [facility] Performing Organization Address City/State/ZIP Code Phon e [...] documented as of this encounter Care Teams Wire Photo Operator Relationship Specialty Start Date End Date Suhail Bar APRN AIRWAYS CONTROL SPECIALIST PCP - General Nurse Practitioner 06/29/17 04/14/20 [address] [facility] [place] [address] documented as of this encounter
--- OUTSIDE RECORDS SUMMARY | 2022-09-07 12:01 | XMS_ITS | Encounter Summary ---
:1995 Author Organization [place] Address [address] [facility] [address] Care Team Providers Name Role Phone Viri Gallardo APRN, CNP Primary Care Provider [phone] Reason for Referral Consultation - Closed Specialty Diagnoses / Procedures Referred By Contact Refer red To Contact Diagnoses Intractable vomiting with nausea, unspecified vomiting type Merry Pollack MD [place] [address] [place] [address] [facility] [place] [address] [address] [place] [address] Phone: Fax: Referral ID Status Reason Start Date Expiration Date Visits Requ ested Visits Authorized [id number] Closed 09/07/2017 09/07/2018 1 1 LOPING MACHINE OPERATOR Reason for Visit Reason Comments Abdominal Pain ED follow up Nausea Encounter Details Date Type Department Care Team Description 09/07/2017 Office Visit [facility] Merry Pollack, Intrac table vomiting Clinic Jesu GREEN with nausea, [address] [facility] unspe cified vomiting [facility] solomon (Primary Dx) [address] [place] [address] [place] [phone] Social History Tobacco Use [...] Comments Blood Pressure 100/64 09/07/2017 11:15 AM DEVELOPING MACHINE OPERATOR Pulse 82 09/07/2017 11:15 AM DEVELOPING MACHINE OPERATOR Temperature 36.8 ??C (98.2 ??F) 09/07/2017 11:15 AM DEVELOPING MACHINE OPERATOR Respiratory Rate 16 09/07/2017 11:15 AM DEVELOPING MACHINE OPERATOR Oxygen Saturation 99% 09/07/2017 11:15 AM DEVELOPING MACHINE OPERATOR Inhaled Oxygen Concentration - - Weight 51.3 kg (113 lb) 09/07/2017 11:15 AM DEVELOPING MACHINE OPERATOR Height - - Body Mass Index 19.4 08/31/2017 8:00 AM DEVELOPING MACHINE OPERATOR documented in this encounter Patient [...] fluids and then eat small amounts frequently. LOPING MACHINE OPERATOR documented in this encounter Progress Notes Roula Perkins CMA - 09/14/2017 10:09 AM CST 2nd attempted to call no answer goes straight to voicemail. LOPING MACHINE OPERATOR Roula Perkins CMA - 09/09/2017 11:14 AM CST Called pt left message to return call to clinic, sent letter with results//Roula Perkins MA// September 09, 2017 11:14 AM LOPING MACHINE OPERATOR Merry Pollack MD - 09/07/2017 11:10 AM [...] eat small amounts frequently. Merry Pollack MD [facility] LOPING MACHINE OPERATOR documented in this encounter Nursing Notes Tyshawn [...] (51.3 kg). Medication Reconciliation: complete.Tyshawn Ulrich MA LOPING MACHINE OPERATOR documented in this encounter Plan of Treatment Scheduled Referrals Name Type Priority Associated Diagnoses Order S [facility] GASTROENTEROLOGY ADULT REF Referral Routine Intractable vo miting Ordered: CONSULT ONLY with nausea, 09/07/2017 unspecified vomiting type documented as of this encounter Procedures Procedure Name Priority Date/Time Associated Comments Diagnosis NEISSERIA GONORRHOEAE Routine 09/07/2017 11:53 Intractable Re sults for this PCR AM DEVELOPING MACHINE OPERATOR vomiting with procedure are in nausea, unspecified the resu lts vomiting type section. CHLAMYDIA TRACHOMATIS Routine 09/07/2017 11:53 Intractable Re sults for this PCR AM DEVELOPING MACHINE OPERATOR vomiting with procedure are in nausea, unspecified the resu lts vomiting type section. CBC WITH PLATELETS & Routine 09/07/2017 11:48 Intractable Res ults for this DIFFERENTIAL AM DEVELOPING MACHINE OPERATOR vomiting with procedure are in nausea, unspecified the resu lts vomiting type section. LIPASE Routine 09/07/2017 11:48 Intractable Results for this AM DEVELOPING MACHINE OPERATOR vomiting with procedure are in nausea, unspecified the resu lts vomiting type section. ERYTHROCYTE Routine 09/07/2017 11:48 Intractable Results for this SEDIMENTATION RATE AM DEVELOPING MACHINE OPERATOR vomiting with procedur e are in AUTO nausea, unspecified the resu lts vomiting type section. CRP INFLAMMATION Routine 09/07/2017 11:48 Intractable Results for this AM DEVELOPING MACHINE OPERATOR vomiting with procedure are in nausea, unspecified the resu lts vomiting type section. COMPREHENSIVE Routine 09/07/2017 11:48 Intractable Results fo r this METABOLIC PANEL AM DEVELOPING MACHINE OPERATOR vomiting with procedure a re in nausea, unspecified the resu lts vomiting type section. documented in this encounter Results XR Abdomen 2 Views (09/07/2017 11:54 AM DEVELOPING MACHINE OPERATOR) Anatomical Region Laterality Modality Abdomen/Pelvis Computed Radiography Specimen (Source) Anatomical Location Collection Method / Collectio n Time Received Time / Laterality Volume Impressions 09/07/2017 3:05 PM DEVELOPING MACHINE OPERATOR IMPRESSION: Normal bowel gas pattern. At least a moderate amount of fecal material throughout the ascending and transverse colon. Intrauterine device projects over the pe lvis. LUANN ADHIKARI MD Narrative 09/07/2017 3:05 PM DEVELOPING MACHINE OPERATOR ABDOMEN TWO VIEWS September 07, 2017 11:54 [...] NAS Chlamydia trachomatis PCR (09/07/2017 11:53 AM DEVELOPING MACHINE OPERATOR) [facility] Method Time Signature Specimen Urine 09/07/2017 [facility] Description 11:54 AM DEVELOPING MACHINE OPERATOR CLINICS [facility] Chlamydia Negative NEG^Negat 09/08/2017 [facility] Trachomatis PCR herrera 12:42 PM [facility] Comment: Negative for C. trachomatis rRNA by hernandez scription mediated amplification. A negative result by city auditor media lainey amplification does not preclude the presence of C. trachomatis infection because results are dependent on proper and adequate collection, absence of inhibitors, and sufficient rRNA to be detected. Specimen Anatomical Collection Method Collection Time Receive d Time (Source) Location / / Volume Laterality Urine specimen 09/07/2017 11:53 7 (specimen) AM DEVELOPING MACHINE OPERATOR 11:54 AM DEVELOPING MACHINE OPERATOR Merry Pollack MD LAB - MICRO GENERAL ORDERABL ES Performing Organization Address [facility] Phon e Number [address] [address] Neisseria gonorrhoeae PCR (09/07/2017 11:53 AM DEVELOPING MACHINE OPERATOR) [facility] Specimen Urine 09/07/2017 [facility] 11:54 AM DEVELOPING MACHINE OPERATOR [facility] N Gonorrhea Negative NEG^Negati 09/08/2017 [facility] ve 12:42 PM DEVELOPING MACHINE OPERATOR [facility] Comment: Negative for N. gonorrhoeae rRNA by hernandez scription mediated amplification. A negative result by city auditor media lainey amplification does not preclude the presence of N. gonorrhoeae infection because results are dependent on proper and adequate collection, absence of inhibitors, and sufficient rRNA to be detected. Specimen Anatomical Collection Method Collection Time Receive d Time (Source) Location / / Volume Laterality Urine specimen 09/07/2017 11:53 7 (specimen) AM DEVELOPING MACHINE OPERATOR 11:54 AM DEVELOPING MACHINE OPERATOR Merry Pollack MD LAB - MICRO GENERAL ORDERABL ES Performing Organization Address [facility] Phon e Number [address] [address] CRP, inflammation (09/07/2017 11:48 AM DEVELOPING MACHINE OPERATOR) Analysis Performed At Patho logist [place] Signature CRP Inflammation <2.9 0.0 - 8.0 09/07/2017 [facility] O F mg/L 9:50 PM DEVELOPING MACHINE OPERATOR [facility] Specimen Anatomical Collection Method Collection Time Receive d Time (Source) Location / / Volume Laterality Blood specimen 09/07/2017 11:48 7 (specimen) AM DEVELOPING MACHINE OPERATOR 12:15 PM DEVELOPING MACHINE OPERATOR Merry Pollack MD LAB - BLOOD ORDERABLES Performing Organization Address City/State/ZIP Code Phon e Number [facility] [address] [place] [address] [facility] Erythrocyte sedimentation rate auto (09/07/2017 11:48 AM DEVELOPING MACHINE OPERATOR) P athologist Signature Sed Rate 1 0 - 20 mm/h 09/07/2017 [facility] 12:34 PM DEVELOPING MACHINE OPERATOR CLINICS [facility] Specimen Anatomical Collection Method Collection Time Receive d Time (Source) Location / / Volume Laterality Blood specimen 09/07/2017 11:48 7 (specimen) AM DEVELOPING MACHINE OPERATOR 12:15 PM DEVELOPING MACHINE OPERATOR Merry Pollack MD LAB - BLOOD ORDERABLES Performing Organization Address City/State/ZIP Code Phon e Number [facility] [address] [place] [address] CBC with platelets differential (09/07/2017 11:48 AM DEVELOPING MACHINE OPERATOR) Patholo gist Method Time Signature WBC 8.2 4.0 - 09/07/2017 [facility] 11.0 12:20 PM DEVELOPING MACHINE OPERATOR CLINICS 10e9/L [facility] RBC Count 4.51 3.8 - 5.2 09/07/2017 [facility] 10e12/L 12:20 PM DEVELOPING MACHINE OPERATOR CLINICS [facility] Hemoglobin 14.8 11.7 - 09/07/2017 [facility] 15.7 g/dL 12:20 PM DEVELOPING MACHINE OPERATOR CLINICS [facility] Hematocrit 43.7 35.0 - 09/07/2017 [facility] 47.0 % 12:20 PM DEVELOPING MACHINE OPERATOR CLINICS [facility] MCV 97 78 - 100 09/07/2017 [facility] fl 12:20 PM DEVELOPING MACHINE OPERATOR CLINICS [facility] MCH 32.8 26.5 - 09/07/2017 [facility] 33.0 pg 12:20 PM DEVELOPING MACHINE OPERATOR [facility]INICS [facility] MCHC 33.9 31.5 - 09/07/2017 [facility] 36.5 g/dL 12:20 PM DEVELOPING MACHINE OPERATOR [facility]INICS [facility] RDW 12.5 10.0 - 09/07/2017 [facility] 15.0 % 12:20 PM DEVELOPING MACHINE OPERATOR CLINICS [facility] Platelet Count 264 150 - 450 09/07/2017 [facility] 10e9/L 12:20 PM DEVELOPING MACHINE OPERATOR CLINICS [facility] Diff Method Automated 09/07/2017 [facility] Method 12:20 PM DEVELOPING MACHINE OPERATOR CLINICS [facility] % Neutrophils 53.4 % 09/07/2017 [facility] 12:20 PM DEVELOPING MACHINE OPERATOR CLINICS [facility] % Lymphocytes 32.9 % 09/07/2017 [facility] 12:20 PM DEVELOPING MACHINE OPERATOR CLINICS [facility] % Monocytes 8.9 % 09/07/2017 [facility] 12:20 PM DEVELOPING MACHINE OPERATOR [facility]INICS [facility] % Eosinophils 4.4 % 09/07/2017 [facility] 12:20 PM DEVELOPING MACHINE OPERATOR [facility]INICS [facility] % Basophils 0.4 % 09/07/2017 [facility] 12:20 PM DEVELOPING MACHINE OPERATOR [facility] Absolute 4.4 1.6 - 8.3 09/07/2017 [facility] Neutrophil 10e9/L 12:20 PM DEVELOPING MACHINE OPERATOR [facility] Absolute 2.7 0.8 - 5.3 09/07/2017 [facility] Lymphocytes 10e9/L 12:20 PM DEVELOPING MACHINE OPERATOR [facility]ICS [facility] Absolute 0.7 0.0 - 1.3 09/07/2017 [facility] Monocytes 10e9/L 12:20 PM DEVELOPING MACHINE OPERATOR CLINICS [facility] Absolute 0.4 0.0 - 0.7 09/07/2017 [facility] Eosinophils 10e9/L 12:20 PM DEVELOPING MACHINE OPERATOR [facility]INICS [facility] Absolute 0.0 0.0 - 0.2 09/07/2017 [facility] Basophils 10e9/L 12:20 PM DEVELOPING MACHINE OPERATOR [facility]ICS [facility] Specimen Anatomical Collection Method Collection Time Receive d Time (Source) Location / / Volume Laterality Blood specimen 09/07/2017 11:48 7 (specimen) AM DEVELOPING MACHINE OPERATOR 11:53 AM DEVELOPING MACHINE OPERATOR Merry Pollack MD LAB - BLOOD ORDERABLES Performing Organization Address City/State/ZIP Code Phon e Number [facility] [address] [place] [address] Lipase (09/07/2017 11:48 AM DEVELOPING MACHINE OPERATOR) P athologist Signature Lipase 98 73 - 393 09/07/2017 [facility] U/L 9:50 PM [facility] Specimen Anatomical Collection Method Collection Time Receive d Time (Source) Location / / Volume Laterality Blood specimen 09/07/2017 11:48 7 (specimen) AM DEVELOPING MACHINE OPERATOR 11:53 AM DEVELOPING MACHINE OPERATOR Merry Pollack MD LAB - BLOOD ORDERABLES Performing Organization Address City/State/ZIP Code Phon e Number [facility] [address] [place] [address] [facility] (ABNORMAL) Comprehensive metabolic panel (BMP + Alb, Alk Phos, ALT, AST, Total. Bili, TP) (09/07/2017 11:48 AM DEVELOPING MACHINE OPERATOR) P athologist Signature Sodium 139 133 - 144 09/08/2017 [facility] mmol/L 10:49 AM [facility] Potassium 4.2 3.4 - 5.3 09/08/2017 [facility] mmol/L 10:49 AM [facility] Chloride 107 94 - 109 09/08/2017 [facility] mmol/L 10:49 AM [facility] Carbon Dioxide 24 20 - 32 09/08/2017 [facility] mmol/L 10:49 AM [facility] Anion Gap 8 3 - 14 09/08/2017 [facility] mmol/L 10:49 AM [facility] Glucose 88 70 - 99 09/08/2017 [facility] mg/dL 10:49 AM [facility] Urea Nitrogen 10 7 - 30 09/08/2017 [facility] mg/dL 10:49 AM [facility] Creatinine 0.75 0.52 - 09/08/2017 [facility] 1.04 mg/dL 10:49 AM [facility] GFR Estimate >90 >60 09/08/2017 [facility] mL/min/1.7 10:[address] Comment: Non GFR Calc GFR Estimate If >90 >60 mL/min/1.7m2 09/08/2017 10:49 AM [facility] Comment: GFR Calc Calcium 9.0 8.5 - 10.1 09/08/2017 10:49 AM [facility] mg/dL [facility] Bilirubin Total 0.6 0.2 - 1.3 09/08/2017 10:49 AM [facility] mg/dL [facility] Albumin 4.0 3.4 - 5.0 g/dL 09/08/2017 10:49 AM [facility] Protein Total 7.0 6.8 - 8.8 g/dL 09/08/2017 10:49 AM [facility] Alkaline Phosphatase 39 (L) 40 - 150 U/L 09/08/2017 10:49 AM [facility] ALT 20 0 - 50 U/L 09/08/2017 10:49 AM [facility] AST 10 0 - 45 U/L 09/08/2017 11:03 AM [facility] Specimen Anatomical Collection Method Collection Time Receive d Time (Source) Location / / Volume Laterality Blood specimen 09/07/2017 11:48 7 (specimen) AM DEVELOPING MACHINE OPERATOR 11:53 AM DEVELOPING MACHINE OPERATOR Merry Pollack MD LAB - BLOOD ORDERABLES Performing Organization Address City/State/ZIP Code Phon e Number [facility] [address] [place] [address] documented in this encounter Visit Diagnoses Diagnosis Intractable vomiting with nausea, unspec ified vomiting type - Primary Intractable vomiting with nausea, unspec ified vomiting type documented in this encounter Additional Health Concerns Assessment Noted Time PHQ-9 Depression Total Score: 13 06/29/2017 2:50 PM CD T documented as of this encounter Care Teams Melter Supervisor Open Hearth Furnace Relationship Specialty Start Date End Date Viri Gallardo APRN [employer] PCP - General Nurse Practitioner 06/29/17 04/14/20 [address] [facility] [place] [address] documented as of this encounter
--- OUTSIDE RECORDS SUMMARY | 2022-09-07 12:01 | XMS_ITS | Encounter Summary ---
:1995 Author Organization [facility] Address [address] [place] [address] Care Team Providers Name Role Phone Viri Gallardo APRN, CNP Primary Care Provider [phone] Encounter Details Date Type Department Care Team Description 09/06/2017 Emergency [facility] Emergency Dept [address] [place] [address] Social History Tobacco Use [...] Comments Blood Pressure 136/76 09/06/2017 12:23 PM LIFE SKILLS COORDINATOR Pulse - - Temperature 36.9 ??C (98.5 ??F) 09/06/2017 12:23 PM LIFE SKILLS COORDINATOR Respiratory Rate 14 09/06/2017 12:23 PM LIFE SKILLS COORDINATOR Oxygen Saturation 98% 09/06/2017 12:23 PM LIFE SKILLS COORDINATOR Inhaled Oxygen Concentration - - Weight - [...] patient notes she continues to have symptoms. SKILLS COORDINATOR documented in this encounter Plan of Treatment Not on filedocumented as of this encounter Visit Diagnoses Not on filedocumented in this encounter Additional Health Concerns Assessment Noted Time PHQ-9 Depression Total Score: 13 06/29/2017 2:50 PM CD T documented as of this encounter Care Teams Orthopedic Designer Relationship Specialty Start Date End Date Viri Gallardo APRN CNP PCP - General Nurse Practitioner 06/29/17 04/14/20 [address] [facility] [place] [address] documented as of this encounter
--- OUTSIDE RECORDS SUMMARY | 2022-09-07 12:01 | XMS_ITS | Encounter Summary ---
:1995 Author Organization [facility] Address [address] [place] [address] Care Team Providers Name Role Phone Viri Gallardo APRN, CNP Primary Care Provider [phone] Viri Gallardo APRN LOSS CONTROL ENGINEER Unavailable [phone] Ailyn Medina RN Unavailable Unavailable Viri Gallardo APRN, CNP Unavailable [phone] Encounter Details Date Type Department Care Team Description 09/06/2017 Result Follow [facility] Viri Gallardo Dx: Davey icolaou smear Up Clinic Jesu Nicole APRN of cervix with low grade [address] [place] CNP squamous intraepithelial [address] CENTRAL lesion (LGSIL) [address] [place], [place] [phone] Social History Tobacco Use Types Packs/Day [...] and sent at request of RN. ([facility]) 08/13/18 Pap reminder letter sent (rl) 09/02/18 Pap Follow up reminder call placed (rl) 09/16/18 NIL pap cyto, 23 yr old. Plan 1 yr Dx pap cytology, due by 09/16/19. 09/23/18 Result letter sent at request of RN. ([facility]) 07/21/19 NIL pap, Plan pap in 3 years. ([facility]) documented in this encounter Plan of Treatment Not on filedocumented as of this encounter Visit Diagnoses Diagnosis Papanicolaou smear of cervix with low gr robert squamous intraepithelial lesion (LGSIL) documented in this encounter Additional Health Concerns Assessment Noted Time PHQ-9 Depression Total Score: 13 06/29/2017 2:50 PM CD T documented as of this encounter Care Teams Overnight Associate Relationship Specialty Start Date End Date Viri Gallardo PCP - General Nurse Practitioner 06/29/17 04/14/20 DORIAN Nicole LOSS CONTROL ENGINEER [address] [facility] [place] [address] Viri Gallardo PCP - Assigned PCP 09/12/17 12/13/18 DORIAN Nicole LOSS CONTROL ENGINEER [address] [facility] [place] [address] Ailyn Medina, RN Clinic Paring Machine Operator Primary Care - CC 07/08/18 07/08/18 Viri Gallardo Assigned PCP 09/12/17 09/16/19 DORIAN Nicole LOSS CONTROL ENGINEER [address] [facility] [place] [address] documented as of this encounter
--- OUTSIDE RECORDS SUMMARY | 2022-09-07 12:01 | XMS_ITS | Encounter Summary ---
:1995 Author Organization [facility] Address [address] [place] [address] Care Team Providers Name Role Phone Kalin Suh MD Primary Care Provider Reason for Visit Reason Onset Date Comments Nurse Advice Line 06/08/2017 Encounter Details Date Type Department Care Team Description 06/08/2017 Telephone [facility] Melissa Young Nurse Advice Line [place] MD [address] [place] [id number] [phone] (Wo rk) Social History Tobacco Use Types [...] documented as of this encounter Care Teams Dramatic Director Relationship Specialty Start Date End Date Klain Suh MD PCP - General Family Practice 07/04/16 06/15/17 [address] [place] [address] documented as of this encounter
--- OUTSIDE RECORDS SUMMARY | 2022-09-07 12:01 | XMS_ITS | Encounter Summary ---
:1995 Author Organization [facility] Address [address] [place] [address]. [place] [address] Care Team Providers Name Role Phone Kalin Suh MD Primary Care Provider Melissa Young MD Primary Care Provider [phone] Reason for Visit Reason Onset Date Comments Nurse Advice Line 06/15/2017 update Encounter Details Date Type Department Care Team Description 06/15/2017 Telephone [facility] Kalin Suh MD Nurse Advice Line Clinic [address] (update) [address] [place] [phone] Social History Tobacco Use Types [...] documented as of this encounter Care Teams Top Lift Trimmer Relationship Specialty Start Date End Date Kalin Suh MD PCP - General Family Practice 07/04/16 06/15/17 [address] [place] [address] Melissa Young MD PCP - General Family Practice 06/16/17 06/28/17 [address] [place] [address] documented as of this encounter
--- OUTSIDE RECORDS SUMMARY | 2022-09-07 12:02 | XMS_ITS | Encounter Summary ---
:1995 Author Organization [facility] Address [address] [place] [address] Care Team Providers Name Role Phone Kalin Suh MD Primary Care Provider Reason for Visit Reason Comments Rib Pain Encounter Details Date Type Department Care Team Description 10/25/2016 - Emergency [facility] Bonnie Haney Chest pain on 10/26/2016 [facility] Emergency MD Allie breathing Dept [facility] [address] [place] [address] [facility] [address] [place] [address] [phone] (Wo rk) Social History Tobacco Use Types [...] Comments Blood Pressure 133/95 10/26/2016 12:15 AM PRINCIPAL SOFTWARE ARCHITECT Pulse 85 10/26/2016 12:51 AM PRINCIPAL SOFTWARE ARCHITECT Temperature 36.8 ??C (98.2 ??F) 10/25/2016 11:45 PM PRINCIPAL SOFTWARE ARCHITECT Respiratory Rate 20 10/26/2016 12:51 AM PRINCIPAL SOFTWARE ARCHITECT Oxygen Saturation 98% 10/26/2016 1:15 AM PRINCIPAL SOFTWARE ARCHITECT Inhaled Oxygen Concentration - - Weight 55.8 kg (123 lb 0.3 oz) 10/25/2016 11:41 PM PRINCIPAL SOFTWARE ARCHITECT Height - - Body Mass Index 21.79 07/04/2016 11:11 AM CDT documented in this encounter Discharge Instructions Discharge InstructionsBonnie Haney MD - 10/26/2016 2:20 AM PRINCIPAL SOFTWARE ARCHITECT Prescription strength dosing instructions: - 600mg ibuprofen (motrin, advil) every 6 hours and/or - 650mg acetaminophen (tylenol) every 4 hours or 1000mg every 6 hours (maximum of 4000mg in 24 hours). Acetaminophen is often in combination over the counter and prescription pain medications. Be sure to include this in daily total. - These work in different ways and are safe to take together CIPAL SOFTWARE ARCHITECT AttachmentsThe following attachments cannot be sent through Care Everywhere. PLEURISY (YEMENI)documented in this encounter Medications at Time of [...] - 10/26/2016 2:34 AM CST AVS reviewed. CIPAL SOFTWARE ARCHITECT Bonnie Haney MD - 10/25/2016 11:51 PM [...] Pain Time: 0011 Vent. Rate 85 bpm. OR interval 130. QRS duration 88. QT/QTc 372/442. [...] provider's statements to me. Shani Doshi 10/25/2016 [facility] EMERGENCY DEPARTMENT Bonnie Haeny MD 10/26/16 0312 CIPAL SOFTWARE ARCHITECT Monik Martino RN - 10/25/2016 11:43 PM [...] been having intermittent dry cough. ABCs intact. CIPAL SOFTWARE ARCHITECT documented in this encounter Plan of Treatment Not on filedocumented as of this encounter Procedures Procedure Name Priority Date/Time Associated Comments Diagnosis US ABDOMEN LIMITED STAT 10/26/2016 1:07 AM Res ults for this PRINCIPAL SOFTWARE ARCHITECT procedure are i n the results section. XR CHEST 2 VIEWS STAT 10/26/2016 12:48 Results for this AM PRINCIPAL SOFTWARE ARCHITECT procedure are i n the results section. HCG QUALITATIVE URINE STAT 10/26/2016 12:26 Re sults for this AM PRINCIPAL SOFTWARE ARCHITECT procedure are i n the results section. ROUTINE UA WITH STAT 10/26/2016 12:26 Results for this MICROSCOPIC AM PRINCIPAL SOFTWARE ARCHITECT procedure are i n the results section. CBC WITH PLATELETS & STAT 10/26/2016 12:22 Res ults for this DIFFERENTIAL AM PRINCIPAL SOFTWARE ARCHITECT procedure are i n the results section. LIPASE STAT 10/26/2016 12:22 Results for this AM PRINCIPAL SOFTWARE ARCHITECT procedure are i n the results section. INFLUENZA A/B ANTIGEN STAT 10/26/2016 12:22 Re sults for this AM PRINCIPAL SOFTWARE ARCHITECT procedure are i n the results section. HEPATIC FUNCTION STAT 10/26/2016 12:22 Results for this PANEL AM PRINCIPAL SOFTWARE ARCHITECT procedure are i n the results section. D DIMER QUANTITATIVE Routine 10/26/2016 12:22 Res ults for this AM PRINCIPAL SOFTWARE ARCHITECT procedure are i n the results section. BASIC METABOLIC PANEL STAT 10/26/2016 12:22 Re sults for this AM PRINCIPAL SOFTWARE ARCHITECT procedure are i n the results section. EKG 12-LEAD, TRACING STAT 10/26/2016 12:11 Res ults for this ONLY AM PRINCIPAL SOFTWARE ARCHITECT procedure are i n the results section. documented in this encounter Results US Abdomen Limited (10/26/2016 1:07 AM PRINCIPAL SOFTWARE ARCHITECT) Anatomical Region Laterality Modality Abdomen/Pelvis Ultrasound Specimen (Source) Anatomical Location Collection Method / Collectio n Time Received Time / Laterality Volume Impressions 10/26/2016 1:12 AM PRINCIPAL SOFTWARE ARCHITECT IMPRESSION: Normal right upper quadrant. No gallston e or biliary dilatation. KEVYN HARRIS MD Narrative 10/26/2016 1:12 AM PRINCIPAL SOFTWARE ARCHITECT US ABDOMEN LIMITED ??10/26/2016 1:07 AM ?? [...] XR, PA & LAT (10/26/2016 12:48 AM PRINCIPAL SOFTWARE ARCHITECT) Anatomical Region Laterality Modality Chest Computed Radiography Specimen (Source) Anatomical Location Collection Method / Collectio n Time Received Time / Laterality Volume Impressions 10/26/2016 6:11 AM PRINCIPAL SOFTWARE ARCHITECT IMPRESSION: ??No acute abnormality. KEVYN HARRIS MD Narrative 10/26/2016 6:11 AM PRINCIPAL SOFTWARE ARCHITECT XR CHEST 2 VW ??10/26/2016 12:48 AM [...] NAS HCG qualitative urine (10/26/2016 12:26 AM PRINCIPAL SOFTWARE ARCHITECT) P athologist Signature HCG Qual Urine Negative NEG [facility] Specimen Anatomical Collection Method Collection Time Receive d Time (Source) Location / / Volume Laterality Urine specimen URINE SPECIMEN 10/26/2016 12:26 017 (specimen) OBTAINED BY CLEAN AM PRINCIPAL SOFTWARE ARCHITECT 12:[address] CATCH PROCEDURE / Unknown Bonnie Haney MD LAB - URINE ORDERABLES Performing Organization Address City/State/ZIP Code Phon e Number [place] [address] [place] [address] [facility] [address] [phone] (ABNORMAL) UA with Microscopic (10/26/2016 12:26 AM PRINCIPAL SOFTWARE ARCHITECT) [facility] gist Method Time Signature Color Urine Yellow [facility] Appearance Urine Slightly [place] Cloudy [facility] Glucose Urine Negative NEG mg/dL [facility] Bilirubin Urine Negative NEG [facility] Ketones Urine Negative NEG mg/dL [facility] Specific [place] 1.015 1.003 - [place] Urine 1.035 [facility] Blood Urine Trace (A) NEG [facility] pH Urine 5.0 5.0 - 7.0 [place] pH [facility] Protein Albumin Negative NEG mg/dL [facility] Urobilinogen Normal 0.0 - 2.0 [place] mg/dL mg/dL [facility] Nitrite Urine Negative NEG [facility] Leukocyte Negative NEG [place] Esterase Urine [facility] Source Midstream [facility] WBC Urine 1 0 - 2 [facility] /HPF [facility] RBC Urine 2 0 - 2 [facility] /HPF [facility] Bacteria Urine Few (A) NEG /HPF [facility] Squamous 10 (H) 0 - 1 [facility] Epithelial /HPF /HPF [facility] Transitional Epi <1 0 - 1 [facility] /HPF [facility] Mucous Urine Present (A) NEG /LPF [facility] Specimen Anatomical Collection Method Collection Time Receive d Time (Source) Location / / Volume Laterality Urine specimen URINE SPECIMEN 10/26/2016 12:26 017 (specimen) OBTAINED BY CLEAN AM PRINCIPAL SOFTWARE ARCHITECT 12:[address] CATCH PROCEDURE / Unknown Bonnie Haney MD LAB - URINE ORDERABLES Performing Organization Address City/[facility]/ZIP [facility] Phon e Number M [facility] [address] [place], [place] [address] [facility] [address] [place], [place] [address] [facility] [phone] D dimer quantitative (10/26/2016 12:22 AM PRINCIPAL SOFTWARE ARCHITECT) [facility] Method Time Signature D Dimer <0.3 0.0 - [place] This D-dimer assay is intended for use i n conjuntion with a clinical pretest 0.50 [facility] probability assessment model to exclude pulmonary embolism (PE) and as an aid ug/ml [facility] in the diagnosis of deep ve nous thrombosis (DVT) in outpatients suspected of PE or DVT. The cut-off value is 0.5??g/mL [facility]. Specimen Anatomical Collection Method Collection Time Receive d Time (Source) Location / / Volume Laterality 10/26/2016 12:22 10/26/2016 AM PRINCIPAL SOFTWARE ARCHITECT 12:35 AM PRINCIPAL SOFTWARE ARCHITECT Bonnie Haney MD LAB - BLOOD ORDERABLES Performing Organization Address City/[facility]/ZIP [facility] Phon e Number M [facility] [address] [place], [place] [address] [facility]PITAL [facility] [address] [place], [place] [address], [facility] [phone] Influenza A/B antigen (10/26/2016 12:22 AM PRINCIPAL SOFTWARE ARCHITECT) Component Value Ref Test Analysis Performed At [facility] Problemsolutions24 Method Time Signature Influenza A/B Nasopharyngeal [facility] Influenza A Negative NEG [facility] Influenza B Negative NEG [place] Test results must be correlated with clinical data. If ne cessary, results [place] should be confirmed by a molecular assay or viral culture. HOSPITAL Specimen (Source) Anatomical Collection Method Collection Time Re ceived Time Location / / Volume Laterality Specimen from SWAB FROM NASAL 10/26/2016 12:22 017 nasopharyngeal SINUS / Unknown AM PRINCIPAL SOFTWARE ARCHITECT 12:[address] structure (specimen) Bonnie Haney MD LAB - MICRO GENERAL ORDERABL ES Performing Organization Address City/State/ZIP Code Phon e Number M [facility] [address] [place], [place] [address] [facility] [address] [place], [place] [address], [facility] [phone] Hepatic panel (10/26/2016 12:22 AM PRINCIPAL SOFTWARE ARCHITECT) athologist Signature Bilirubin Direct 0.1 0.0 - 0.2 [place] mg/dL [facility] Bilirubin Total 0.8 0.2 - 1.3 [place] mg/dL [facility] Albumin 4.4 3.4 - 5.0 [place] g/dL [facility] Protein Total 8.0 6.8 - 8.8 [place] g/dL [facility] Alkaline 70 40 - 150 [place] Phosphatase U/L [facility] ALT 17 0 - 50 U/L [facility] AST 13 0 - 45 U/L [facility] Specimen Anatomical Collection Method Collection Time Receive d Time (Source) Location / / Volume Laterality Blood specimen 10/26/2016 12:22 7 (specimen) AM PRINCIPAL SOFTWARE ARCHITECT 12:35 AM PRINCIPAL SOFTWARE ARCHITECT Bonnie Haney MD LAB - BLOOD ORDERABLES Performing Organization Address City/State/ZIP Code Phon e Number M [facility] [address] [place], [place] [address] [facility] [address] [place], [place] [address], [facility] [phone] (ABNORMAL) Lipase (10/26/2016 12:22 AM PRINCIPAL SOFTWARE ARCHITECT) athologist Signature Lipase 55 (L) 73 - 393 [facility] U/L HOSPITAL Specimen Anatomical Collection Method Collection Time Receive d Time (Source) Location / / Volume Laterality Blood specimen 10/26/2016 12:22 7 (specimen) AM PRINCIPAL SOFTWARE ARCHITECT 12:35 AM PRINCIPAL SOFTWARE ARCHITECT Bonnie Haney MD LAB - BLOOD ORDERABLES Performing Organization Address City/[facility]/ZIP [facility] Phon e Number M [facility] [address] [place], [place] [address] [facility] [address] [place], [place] [address], [facility] [phone] Basic metabolic panel (10/26/2016 12:22 AM PRINCIPAL SOFTWARE ARCHITECT) [facility] Method Time Signature Sodium 137 133 - 144 [place] mmol/L [facility] Potassium 3.4 3.4 - 5.3 [place] mmol/L [facility] Chloride 101 94 - 109 [place] mmol/L [facility] Carbon Dioxide 28 20 - 32 [place] mmol/L [facility] Anion Gap 8 3 - 14 [place] mmol/L [facility] Glucose 96 70 - 99 [place] mg/dL [facility] Urea Nitrogen 10 7 - 30 [place] mg/dL [facility] Creatinine 0.63 0.52 - [place] 1.04 [facility] mg/dL [facility] GFR Estimate >90 >60 [place] Non GFR Calc mL/min/1. [facility] 7m2 HOSPITAL GFR Estimate >90 >60 [place] If Black GFR Calc mL/min/1. R[facility] ES 7m2 [facility] Calcium 9.3 8.5 - [place] 10.1 [facility] mg/dL HOSPITAL Specimen Anatomical Collection Method Collection Time Receive d Time (Source) Location / / Volume Laterality Blood specimen 10/26/2016 12:22 7 (specimen) AM PRINCIPAL SOFTWARE ARCHITECT 12:35 AM PRINCIPAL SOFTWARE ARCHITECT Bonnie Haney MD LAB - BLOOD ORDERABLES Performing Organization Address City/[facility]/ZIP Code Phon e Number M [facility] [address] [place], [place] [address] [place] [address] [address] [place], [place] [address], [facility] [phone] (ABNORMAL) CBC with platelets differential (10/26/2016 12:22 AM PRINCIPAL SOFTWARE ARCHITECT) [facility] Method Time Signature WBC 16.9 (H) 4.0 - [facility] 11.0 [facility] 10e9/L [facility] RBC Count 4.58 3.8 - 5.2 [place] 10e12/[facility] Hemoglobin 14.3 11.7 - [place] 15.7 g/dL [facility] Hematocrit 42.4 35.0 - [place] 47.0 % [facility] MCV 93 78 - 100 [place] fl [facility] MCH 31.2 26.5 - [place] 33.0 pg [facility] MCHC 33.7 31.5 - [place] 36.5 g/dL [facility] RDW 13.1 10.0 - [place] 15.0 % [facility] Platelet Count 313 150 - [address] Diff Method Automated [place] Method [facility] % Neutrophils 68.5 % [facility] % Lymphocytes 22.0 % [facility] % Monocytes 7.8 % [facility] % Eosinophils 0.9 % [facility] % Basophils 0.4 % [facility] % Immature 0.4 % [place] Granulocytes [facility] Nucleated RBCs 0 0 /100 [facility] Absolute 11.6 (H) 1.6 - 8.3 [place] Neutrophil [address] [place] [address] Absolute 3.7 0.8 - 5.3 [place] Lymphocytes [address] [place] [address] Absolute 1.3 0.0 - 1.3 [place] Monocytes [address] [place] [address] Absolute 0.2 0.0 - 0.7 [place] Eosinophils [address] [place] [address] Absolute 0.1 0.0 - 0.2 [place] Basophils [address] [place] [address] Abs Immature 0.1 0 - 0.[address] [place] Granulocytes [address] [place] [address] Absolute 0.0 [place] Nucleated RBC [facility] Specimen Anatomical Collection Method Collection Time Receive d Time (Source) Location / / Volume Laterality Blood specimen 10/26/2016 12:22 7 (specimen) AM PRINCIPAL SOFTWARE ARCHITECT 12:35 AM PRINCIPAL SOFTWARE ARCHITECT Bonnie Haney MD LAB - BLOOD ORDERABLES Performing Organization Address City/State/ZIP Code Phon e Number M [facility] [address] [place], [place] [address] [facility] [address] [place] [address] [phone] EKG 12-lead, tracing only (10/26/2016 12:11 AM PRINCIPAL SOFTWARE ARCHITECT) [facility] gist Method Time Signature Interpretation ECG Click View RADIOLOGY Image link RESULTS to view waveform and result Specimen (Source) Anatomical Collection Method Collection Time Re ceived Time Location / / Volume Laterality 10/26/2016 12:11 AM PRINCIPAL SOFTWARE ARCHITECT Bonnie Haney MD ECG ORDERABLES Performing Organization Address City/State/ZIP Code Phon e Number RADIOLOGY RESULTS documented in this encounter Visit Diagnoses Diagnosis Chest pain on breathing Painful respiration documented in this encounter Administered Medications Inactive Administered Medications - up to 3 most recent administrations Medication Order MAR Action Action Date Dose Rate Site ketorolac (TORADOL) injection 30 Given 10/26/2016 12:21 AM PRINCIPAL SOFTWARE ARCHITECT 3 0 mg mg 30 mg, Intravenous, ONCE, On Wed10/26/16 at 0002, For 1 dose morphine (PF) injection 4 mg Given 10/26/2016 12:21 AM PRINCIPAL SOFTWARE ARCHITECT 4 mg 4 mg, Intravenous, ONCE, On Wed10/26/16 at 0002, For 1 dose ondansetron (ZOFRAN) injection 4 mg Given 10/26/2016 12:21 AM PRINCIPAL SOFTWARE ARCHITECT 4 mg 4 mg, Intravenous, ONCE, Administer over 2-5 Minutes, On Wed10/26/16 at 0002, For 1 dose documented in this encounter Active and Recently Administered Medications Times are shown in PRINCIPAL SOFTWARE ARCHITECT. Scheduled Medication Order 10/24/2016 10/25/2016 10/26/2016 ketorolac [...] as of this encounter Care Teams Sales Representative Jewelry Relationship Specialty Start Date End Date Kalin Suh MD PCP - General Family Practice 07/04/16 06/15/17 [address] [place] [address] documented as of this encounter
--- OUTSIDE RECORDS SUMMARY | 2022-09-07 12:02 | XMS_ITS | Encounter Summary ---
:1995 Author Organization [place] Address [address] [place] [address] Care Team Providers Name Role Phone Kalin Suh MD Primary Care Provider Reason for Visit Reason Comments RECHECK pleurisy- slight improvement Encounter Details Date Type Department Care Team Description 11/02/2016 Office Visit [facility] Kalin Suh MD Painful respiration (Primary Dx); Clinic [address] Rib pain [id number] [place] [phone] Social History Tobacco Use Types Packs/Day Years [...] Comments Blood Pressure 130/82 11/02/2016 3:33 PM SODDER Pulse 90 11/02/2016 3:33 PM SODDER Temperature 36.9 ??C (98.5 ??F) 11/02/2016 3:33 PM SODDER Respiratory Rate 20 11/02/2016 3:33 PM SODDER Oxygen Saturation 98% 11/02/2016 3:33 PM SODDER Inhaled Oxygen Concentration - - Weight 53.1 kg (117 lb) 11/02/2016 3:33 PM SODDER Height 160 cm (5' 3) 11/02/2016 3:33 PM SODDER Body Mass Index 20.73 11/02/2016 3:33 PM SODDER documented in this encounter Progress Notes Kalin [...] Problem List Diagnosis ??? Migraine ??? Health Alf ??? Pain in joint, pelvic region and [...] Dispense: 90capsule; Refill: 0 Kalin Suh MD [facility] ER documented in this encounter Nursing Notes Gabi Whitfield, MANAGER SIGN - 11/02/2016 3:34 PM CST Chief Complaint [...] using cuff size regular Gabi Whitfield CMA ER documented in this encounter Plan of Treatment Not on filedocumented as of this encounter Visit Diagnoses Diagnosis Painful respiration - Primary Rib pain Chest pain, unspecified documented in this encounter Additional Health Concerns Assessment Noted Time PHQ-9 Depression Total Score: 5 07/29/2016 7:17 AM CDT documented as of this encounter Care Teams Hydroelectric Plant Structural Engineer Relationship Specialty Start Date End Date Kalin Suh MD PCP - General Family Practice 07/04/16 06/15/17 [address] [place] [address] documented as of this encounter
--- OUTSIDE RECORDS SUMMARY | 2022-09-07 12:02 | XMS_ITS | Encounter Summary ---
:1995 Author Organization [place] Address [address] [facility] [place] [address] Care Team Providers Name Role Phone Kalin Suh MD Primary Care Provider Reason for Visit Reason Comments ER F/U f/u ER, was seen at [facility] ER on 06/01/2017 for hematuria Encounter Details Date Type Department Care Team Description 06/03/2017 [facility], Acute c ystitis with hematuria (Primary Dx); Clinic [place] Melissa Frey MD Nausea; [address] [address] [address] Insomnia, unspecified type; [place], [place] Cannabi s abuse, continuous - Mild [id number] [phone] Social History Tobacco Use Types Packs/Day Years [...] the following health issues: ED/UC Followup: Facility: [facility] Date of visit: 06/01/2017 Reason for visit: [...] Problem List Diagnosis ??? Migraine ??? Health Longterm ??? Pain in joint, pelvic region and [...] hour(s)) *UA reflex to Microscopic and Culture ([facility] (except [place] and [place]) Result Value Ref Range Color Urine Yellow Appearance Urine Clear Glucose Urine Negative NEG^Negative mg/dL Bilirubin Urine Negative NEG^Negative Ketones Urine Negative NEG^Negative mg/dL Specific Criders Urine 1.020 1.003 - 1.035 Blood Urine [...] - *UA reflex to Microscopic and Culture ([facility] (except [place] and [place]) - Urine Microscopic - phenazopyridine (PYRIDIUM) 200 [...] well. See Patient Instructions Melissa Young MD [facility] documented in this encounter Nursing Notes Nitza Pugh CMA - 06/03/2017 3:00 PM CDT Chief Complaint Patient presents with ??? ER F/U f/u ER, was seen at [facility] on 06/01/2017 for hematuria Initial BP 119/71 [...] lb (50.8 kg). Medication Reconciliation: complete Nitza Pugh/MAINFRAME SYSTEMS PROGRAMMER [facility] documented in this encounter Plan of [...] 06/03/2017 [facility] /HPF 3:27 PM CDT CLINICS CHECK RBC Urine O - 2 OTO2^O - 2 06/03/2017 [facility] /HPF 3:27 PM CDT [facility] Squamous Many (A) FEW^Few 06/03/2017 [place] Epithelial /LPF /LPF 3:27 PM CDT CLINICS APPL E Urine [place] Bacteria Urine Few (A) NEG^Negati 06/03/2017 [place] ve /HPF 3:27 PM CDT [facility] Specimen Anatomical Collection Method Collection Time Receive d Time (Source) Location / / Volume Laterality 06/03/2017 3:14 PM 7 3:15 CDT PM CDT Melissa Yuong MD LAB - URINE ORDERABLES Performing Organization Address City/State/ZIP Code Phon e Number [facility] [address] [place] [address] (ABNORMAL) *UA reflex to Microscopic and Culture ([facility] (except [place] and[place]) (06/03/2017 3:14 PM CDT) Patholo gist Method Time Signature Color Urine Yellow 06/03/2017 [place] 3:27 PM CDT CLINICS CHECK Appearance Urine Clear 06/03/2017 [place] 3:27 PM CDT CLINICS CHECK Glucose Urine Negative NEG^Negat 06/03/2017 [place] herrera mg/dL 3:27 PM CDT [facility] Bilirubin Urine Negative NEG^Negat 06/03/2017 [place] herrera 3:27 PM CDT CLINICS CHECK Ketones Urine Negative NEG^Negat 06/03/2017 [place] herrera mg/dL 3:27 PM CDT CLINICS CHECK Specific [place] 1.020 1.003 - 06/03/2017 [place] Urine 1.035 3:27 PM CDT [facility] Blood Urine Trace (A) NEG^Negat 06/03/2017 [place] herrera 3:27 PM CDT CLINICS CHECK pH Urine 6.0 5.0 - 7.0 06/03/2017 [place] pH 3:27 PM CDT [facility] Protein Albumin Negative NEG^Negat 06/03/2017 [place] Urine herrera mg/dL 3:27 PM CDT CLINICS CHECK Urobilinogen 0.2 0.2 - 1.0 06/03/2017 [place] Urine EU/dL 3:27 PM CDT [facility] Nitrite Urine Negative NEG^Negat 06/03/2017 [place] herrera 3:27 PM CDT [facility] Leukocyte Trace (A) NEG^Negat 06/03/2017 [place] Esterase Urine herrera 3:27 PM CDT [facility] Source Midstream 06/03/2017 [place] Urine 3:27 PM CDT [facility] Specimen (Source) Anatomical Collection Method Collection Time Re ceived Time Location / / Volume Laterality Examination of 06/03/2017 3:14 06/03/2017 3:15 midstream urine PM CDT PM CDT specimen (procedure) Melissa Young MD LAB - URINE ORDERABLES Performing Organization Address City/State/[facility] Code Phon e Number [facility] [address] [place] [address] documented in this encounter Visit Diagnoses Diagnosis Acute cystitis with hematuria - Primary Acute cystitis Nausea Nausea alone Insomnia, unspecified type Cannabis abuse, continuous - Mild Cannabis abuse, continuous documented in this encounter Additional Health Concerns Assessment Noted Time PHQ-9 Depression Total Score: 17 03/03/2017 7:16 AM CD T documented as of this encounter Care Teams Biofuels Processing Technician Relationship Specialty Start Date End Date Kalin Suh MD PCP - General Family Practice 07/04/16 06/15/17 [address] [place] [address] documented as of this encounter
--- OUTSIDE RECORDS SUMMARY | 2022-09-07 12:02 | XMS_ITS | Encounter Summary ---
:1996 Author Organization [place] Address [address] [place] [address]. [place] [address] Care Team Providers Name Role Phone Kalin Suh MD Primary Care Provider Reason for Visit Reason Comments Recheck Medication Encounter Details Date Type Department Care Team Description 07/04/2016 Office Visit [facility] Kalin Suh MD Screening examination for venereal disea se (Primary Dx); Clinic [address] Need for HPV vaccine; [address] [place] [address] Need for prophylactic vaccin ation and inoculation against influenza; [place] [address] Moderate bipolar II disorder, most recen t [...] with psychiatry in August. Kalin Suh MD [facility] documented in this encounter Nursing Notes Arminda [...] Component Value Ref Test [facility] Range Method Time Signature Specimen Urine [facility] Chlamydia Negative NEG [facility] Trachomatis Negative for C. trachomatis rRNA by special education associate mediated amplification. [place] [facility] PCR A negative result by transc [...] Organization Address City/State/ZIP Code Phon e Number [facility] [address] [place] [address] [facility] [address] [place], [place] [phone] [place] GONORRHOEA PCR (07/04/2016 11:26 AM CDT) Component Value Ref Test Analysis Performed At [facility] SpunLive Method Time Signature Specimen Urine [facility] N Gonorrhea Negative NEG [facility] Negative for N. gonorrhoeae rRNA by transcripti on mediated amplification. [place] [facility] A negative result by transc ription [...] Organization Address City/State/ZIP Code Phon e Number [facility] [address] [place] [address] [facility] [id number] [place] [address] documented in this encounter Visit Diagnoses Diagnosis [...] documented as of this encounter Care Teams Core Machine Tender Relationship Specialty Start Date End Date Kalin Suh MD PCP - General Family Practice 07/04/16 06/15/17 [address] [place] [address] documented as of this encounter
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
--- OUTSIDE RECORDS SUMMARY | 2022-09-07 12:02 | XMS_ITS | Encounter Summary ---
:1996 Author Organization [place] Address [facility] [place] [place] [address] Care Team Providers Name Role Phone Kalin Suh MD Primary Care Provider Reason for Visit Reason Comments Clinic Care Coordination - Initial Encounter Details Date Type Department Care Team Description 03/10/2017 Care Coordination [facility] Kalin Suh MD Clinic Care Care Coordination [address] [facility] Coordination - [address] [place] [address] () [facility] [id number] [place] [address] [phone] [address] (Work) [phone] Social History Tobacco Use Types Packs/Day Years [...] 11:31 AM CDT Clinic Care Coordination Contact [facility]/Voicemail Referral Source: PCP Clinical Data: Agricultural Real Estate Agent Outreach Outreach attempted x 2. SW is not able to leave a voicemail message as pt does not have a working phone number. Plan: Agricultural Real Estate Agent mailed out care coordination introduction letter on 03/02/17. Agricultural Real Estate Agent will do no further outreaches at this time. ADRIANO Hodges, [facility] Social Work - Agricultural Real Estate Agent [facility] Jesu Zavala and [place] documented in this encounter Plan of Treatment Not on filedocumented as of this encounter Visit Diagnoses Not on filedocumented in this encounter Additional Health Concerns Assessment Noted Time PHQ-9 Depression Total Score: 17 03/03/2017 7:16 AM CD T documented as of this encounter Care Teams Credit Risk Analyst Relationship Specialty Start Date End Date Kalin Suh MD PCP - General Family Practice 07/04/16 06/15/17 [address] [place] [address] documented as of this encounter
--- OUTSIDE RECORDS SUMMARY | 2022-09-07 12:02 | XMS_ITS | Encounter Summary ---
:1996 Author Organization [place] Address [address] [place] [address] Care Team Providers Name Role Phone Kalin Suh MD Primary Care Provider Encounter Details Date Type Department Care Team Description 07/22/2016 Office Visit [facility] [place] De León LMF T Moderate bipolar II Services [facility] R disorder, most recent [place] [address] [facility] episode major [address] [place] [address] depressive (H) [place], [place] [phone] (Wo rk) (Primary Dx) [id number] [phone] Social History Tobacco Use Types Packs/Day Years [...] by: -Use of play equipment, physical devices, sole seamer or desulphurizer operator to overcome barriers to diagnostic or therapeutic [...] sandtray to review next session. ADRIANA Palacios, INTERNATIONAL ACCOUNT REPRESENTATIVE Treatment Plan Client's Name: Joel Amos Date [...] Therapist will assign homework to identify escalation/triggers, [id number], stressors teach the client how to perform a behavioral chain analysis. start implementing operant conditioningfor desired behavioral patterns. Objective #B Identify two areas of life that you would like to have improved functioning. 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 mindfulness, relaxation skills, deep breathing skills, [id number] Client has reviewed and agreed to the above plan. ADRIANA Palacios, INTERNATIONAL ACCOUNT REPRESENTATIVE July 22, 2016 documented in this encounter Plan of Treatment Not on filedocumented as of this encounter Visit Diagnoses Diagnosis Moderate bipolar II disorder, most recen t episode major depressive (H) - Primary Other bipolar disorders documented in this encounter Additional Health Concerns Assessment Noted Time PHQ-9 Depression Total Score: 10 07/16/2016 7:21 AM CD T documented as of this encounter Care Teams Naval Science Teacher Relationship Specialty Start Date End Date Kalin Suh MD PCP - General Family Practice 07/04/16 06/15/17 [address] [place] [address] documented as of this encounter
--- OUTSIDE RECORDS SUMMARY | 2022-09-07 12:02 | XMS_ITS | Encounter Summary ---
:1996 Author Organization [place] Address [address] [place] [address]. [place] [address] Care Team Providers Name Role Phone Kalin Suh MD Primary Care Provider Tamiko Simons PURCHASING INTERNSHIP Unavailable Reason for Visit Reason Comments Clinic Care Coordination - Initial Encounter Details Date Type Department Care Team Description 03/02/2017 Care Coordination [facility] Kalin Suh MD Clinic Care Care Coordination [address] [facility] Coordination - [address] [place] [address] () [facility] [id number] [place] [address] [phone] (Work) [phone] Social History Tobacco Use Types Packs/Day Years [...] 1:16 PM CDT Clinic Care Coordination Contact [facility]/Voicemail Referral Source: PCP Clinical Data: Senior Air Director Outreach Outreach attempted x 1. Unable to leave a message for pt or pt's mother as their contact informationlisted is not correct. Plan: Senior Air Director mailed out care coordination introduction letter on 03/02/17. Senior Air Director will try to reach patient again in 3-5 business days. ADRIANO Hodges, [facility] Social Work - Senior Air Director [facility] and [place] documented in this encounter Plan of Treatment Not on filedocumented as of this encounter Visit Diagnoses Not on filedocumented in this encounter Additional Health Concerns Assessment Noted Time PHQ-9 Depression Total Score: 17 03/03/2017 7:16 AM CD T documented as of this encounter Care Teams Check Scaler Relationship Specialty Start Date End Date Kalin Suh MD PCP - General Family Practice 07/04/16 06/15/17 [address] [place] [address] Tamiko Simons MSW Electronic Equipment Installer 03/02/17 03/09/17 documented as of this encounter
--- OUTSIDE RECORDS SUMMARY | 2022-09-07 12:02 | XMS_ITS | Encounter Summary ---
:1996 Author Organization [place] Address [address] [facility] [place] [address] Care Team Providers Name Role Phone Kalin Suh MD Primary Care Provider Reason for Visit Reason Comments Recheck Medication pain meds not helping Rectal Problem blood in stool Encounter Details Date Type Department Care Team Description 10/30/2016 Office Visit [facility] Kalin Suh MD Atypical chest pain (Primary Dx); Clinic [address] Acute bronchitis, unspecified organism [address] [place] [phone] Social History Tobacco Use Types Packs/Day [...] Comments Blood Pressure 133/82 10/30/2016 3:22 PM MECHANICAL SERVICE REPRESENTATIVE Pulse 100 10/30/2016 3:22 PM MECHANICAL SERVICE REPRESENTATIVE Temperature 37.5 ??C (99.5 ??F) 10/30/2016 3:22 PM MECHANICAL SERVICE REPRESENTATIVE Respiratory Rate 20 10/30/2016 3:22 PM MECHANICAL SERVICE REPRESENTATIVE Oxygen Saturation 97% 10/30/2016 3:22 PM MECHANICAL SERVICE REPRESENTATIVE Inhaled Oxygen Concentration - - Weight 53.5 kg (118 lb) 10/30/2016 3:22 PM MECHANICAL SERVICE REPRESENTATIVE Height 160 cm (5' 3) 10/30/2016 3:22 PM MECHANICAL SERVICE REPRESENTATIVE Body Mass Index 20.9 10/30/2016 3:22 PM MECHANICAL SERVICE REPRESENTATIVE documented in this encounter Progress Notes Kalin [...] Follow up on Wednesday. Kalin Suh MD [facility] ANICAL SERVICE REPRESENTATIVE documented in this encounter Nursing Notes Gabi [...] using cuff size regular Gabi Whitfield CMA ANICAL SERVICE REPRESENTATIVE documented in this encounter Plan of Treatment Not on filedocumented as of this encounter Procedures Procedure Name Priority Date/Time Associated Diagnosis Comme nts EKG 12-LEAD Routine 10/30/2016 4:05 PM Atypical chest pain Re sults for this COMPLETE W/READ - MECHANICAL SERVICE REPRESENTATIVE procedure are in CLINICS the results section. documented in this encounter Results EKG 12-lead complete w/read - Clinics (10/30/2016 4:05 PM MECHANICAL SERVICE REPRESENTATIVE) Narrative This result has an attachment that is no t available. Kalin Suh MD ECG ORDERABLES XR Chest 2 Views (10/30/2016 4:03 PM MECHANICAL SERVICE REPRESENTATIVE) Anatomical Region Laterality Modality Chest Computed Radiography Specimen (Source) Anatomical Location Collection Method / Collectio n Time Received Time / Laterality Volume Impressions 10/30/2016 4:22 PM MECHANICAL SERVICE REPRESENTATIVE IMPRESSION: Since October 26, 2016, heart size remains normal. No pleural effusion, pneumothorax, or abnor mal area of consolidation. YASSINE GUAMAN MD Narrative 10/30/2016 4:22 PM MECHANICAL SERVICE REPRESENTATIVE CHEST TWO VIEWS ??10/30/2016 4:03 PM HISTORY: [...] documented as of this encounter Care Teams Radiation Therapy Technician Relationship Specialty Start Date End Date Kalin Suh MD PCP - General Family Practice 07/04/16 06/15/17 [address] [place] [address] documented as of this encounter
--- OUTSIDE RECORDS SUMMARY | 2022-09-07 12:02 | XMS_ITS | Encounter Summary ---
:1996 Author Organization [place] Address [address] [place] [address] Care Team Providers Name Role Phone Kalin Suh MD Primary Care Provider Encounter Details Date Type Department Care Team Description 07/28/2016 Office Visit [facility] [place] LMF T Moderate bipolar II Services [facility] R disorder, most recent [place] [address] [facility] episode major [address] [place] [address] depressive (H) [place], [place] [phone] (Wo rk) (Primary Dx) [id number] [phone] Social History Tobacco Use Types Packs/Day Years [...] session will start client's genogram. ADRIANA Palacios, TAPPET ADJUSTER Treatment Plan Client's Name: Joel Amos Date [...] Therapist will assign homework to identify escalation/triggers, [id number], stressors teach the client how to perform a behavioral chain analysis. start implementing operant conditioningfor desired behavioral patterns. Objective #B Identify two areas of life that you would like to have improved functioning. Status: New - Date: 07/15/2016 Intervention(s) Problem solving skills, improving decision making for nursing home goals Improving social environments to healthy supports/environments Objective #C Establish clear, consistent, fair and manageable daily behavioral goals with healthy privileges and rewards Status: New - Date: 07/15/2016 Intervention(s) Therapist will provide therapeutic space to address root cause of conflict and begin healing teach emotional regulation skills. mindfulness, relaxation skills, deep breathing skills, [id number] Client has reviewed and agreed to the above plan. ADRIANA Palacios, TAPPET ADJUSTER July 28, 2016 documented in this encounter Plan of Treatment Not on filedocumented as of this encounter Visit Diagnoses Diagnosis Moderate bipolar II disorder, most recen t episode major depressive (H) - Primary Other bipolar disorders documented in this encounter Additional Health Concerns Assessment Noted Time PHQ-9 Depression Total Score: 5 07/29/2016 7:17 AM CDT documented as of this encounter Care Teams Electric Lineman Relationship Specialty Start Date End Date Kalin Suh MD PCP - General Family Practice 07/04/16 06/15/17 [address] [place] [address] documented as of this encounter
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
--- OUTSIDE RECORDS SUMMARY | 2022-09-07 12:02 | XMS_ITS | Encounter Summary ---
:1995 Author Organization [place] Address [address] [place] [address] Care Team Providers Name Role Phone Kalin Suh MD Primary Care Provider Encounter Details Date Type Department Care Team Description 10/30/2016 Radiant Appointment [facility] Kalin Suh MD Atypical chest pain Clinic [address], [address] [place] [address] [phone] Social History Tobacco Use Types Packs/Day Years [...] Atypical chest tabitha n Results for this SOUP MIXER procedure are i n the results section. documented in this encounter Results XR Chest 2 Views (10/30/2016 4:03 PM SOUP MIXER) Anatomical Region Laterality Modality Chest Computed Radiography Specimen (Source) Anatomical Location Collection Method / Collectio n Time Received Time / Laterality Volume Impressions 10/30/2016 4:22 PM SOUP MIXER IMPRESSION: Since October 26, 2016, heart size remains normal. No pleural effusion, pneumothorax, or abnor mal area of consolidation. YASSINE GUAMAN MD Narrative 10/30/2016 4:22 PM SOUP MIXER CHEST TWO VIEWS ??10/30/2016 4:03 PM HISTORY: [...] documented as of this encounter Care Teams Orthopedically Impaired Teacher Relationship Specialty Start Date End Date Kalin Suh MD PCP - General Family Practice 07/04/16 06/15/17 [address] [place] [address] documented as of this encounter
--- OUTSIDE RECORDS SUMMARY | 2022-09-07 12:02 | XMS_ITS | Encounter Summary ---
:1995 Author Organization [place] Address [facility] [place] [address] Care Team Providers Name Role Phone [facility] Primary Care Provider [phone] Reason for Visit Reason Onset Date Comments Patient/info Update 07/01/2016 stopped risperidone, paroxetine Encounter Details Date Type Department Care Team Description 07/01/2016 Telephone [facility] Kalin Suh MD Patient/info Update [address] (stopped risperidone, [address] [place] [address] paroxetine) [place] [phone] Social History Tobacco Use Types Packs/Day [...] Nurse to give pt info about 09/08 [facility] appointment. She said Tuesdays are [...] this pt is 09/08 @ 8am at [facility] in [place]. This is a 2hrs appointment. Tried to call pt, no working numbers. [facility] [place] [address] [place] [address] Ph. [phone] [place]-Referrals Telephone Encounter - Kalin Suh MD [...] documented as of this encounter Care Teams Lay Out Maker Relationship Specialty Start Date End Date Clinic, [facility] PCP - General 12/26/14 07/03/16 [address] [place] [address] documented as of this encounter
--- OUTSIDE RECORDS SUMMARY | 2022-09-07 12:02 | XMS_ITS | Encounter Summary ---
:1995 Author Organization [place] Address [facility] [place] [address] Care Team Providers Name Role Phone Kalin Suh MD Primary Care Provider Reason for Visit Reason Comments Chart Review Please SW Encounter Details Date Type Department Care Team Description 05/20/2017 Care Coordination [facility] Kalin Suh MD Chart Review Please Care Coordination [address] [facility] () [address] [place] [address] [phone] (Work) [phone] Social History Tobacco Use Types Packs/Day Years [...] Coordination Contact Referral Source: PCP Clinical Data: Information Security Outreach SW reviewed pt's chart as pt was indicated to be open to clinic care coordination services. Per chart review, SW attempted to reach pt 2x without a response. Plan: Information Security mailed out care coordination introduction letter on 03/02/17. Information Security will do no further outreaches at this time. ADRIANO Hodges, [facility] Social Work - Information Security [facility] Jesu Zavala and [place] documented in this encounter Plan of Treatment Not on filedocumented as of this encounter Visit Diagnoses Not on filedocumented in this encounter Additional Health Concerns Assessment Noted Time PHQ-9 Depression Total Score: 17 03/03/2017 7:16 AM CD T documented as of this encounter Care Teams Teachers Assistant Relationship Specialty Start Date End Date Kalin Suh MD PCP - General Family Practice 07/04/16 06/15/17 [address] [place] [address] documented as of this encounter
--- OUTSIDE RECORDS SUMMARY | 2022-09-07 12:02 | XMS_ITS | Encounter Summary ---
:1995 Author Organization [place] Address [address] [place] [address]. [place] [address] Care Team Providers Name Role Phone Kalin Suh MD Primary Care Provider Reason for Visit Reason Comments ER F/U pain below rib cage Encounter Details Date Type Department Care Team Description 10/27/2016 Office Visit [facility] Kalin Suh MD Rib pain (Primary Dx) Clinic [address] [phone] Social History Tobacco Use Types Packs/Day Years [...] Comments Blood Pressure 110/67 10/27/2016 9:59 AM [facility] Pulse 88 10/27/2016 9:59 AM [facility] Temperature 36.8 ??C (98.2 ??F) 10/27/2016 9:59 AM [facility] Respiratory Rate 20 10/27/2016 9:59 AM [facility] Oxygen Saturation 98% 10/27/2016 9:59 AM [facility] Inhaled Oxygen Concentration - - Weight 54 kg (119 lb) 10/27/2016 9:59 AM [facility] Height 160 cm (5' 3) 10/27/2016 9:59 AM [facility] Body Mass Index 21.08 10/27/2016 9:59 AM [facility] documented in this encounter Progress Notes Kalin Suh MD - 10/27/2016 9:54 AM CST SUBJECTIVE: Joel Amos is a 21 year old female who presents to clinic today for the following health issues: ED/UC Followup: Facility: [facility] Date of visit: 10/25/16 Reason for visit: [...] any questions or concerns. Kalin Suh MD [facility] documented in this encounter Nursing Notes Gabi [...] using cuff size regular Gabi Whitfield CMA [facility] documented in this encounter Plan of Treatment Not on filedocumented as of this encounter Procedures Procedure Name Priority Date/Time Associated Comments Diagnosis WBC AND DIFFERENTIAL Routine 10/27/2016 10:28 Rib pain Res ults for this AM [facility] procedure are i n the results section. documented in this encounter Results (ABNORMAL) WBC with Diff (10/27/2016 10:28 AM [facility]) athologist Signature WBC 13.7 (H) 4.0 - 11.0 [place] 10e9/L [facility] Comment: Results confirmed by repeat brittnee t Diff Method Automated Method [place] [facility] [place] % Neutrophils 72.6 % [facility] % Lymphocytes 16.4 % [facility] % Monocytes 8.1 % [facility] % Eosinophils 2.5 % [facility] % Basophils 0.4 % [facility] Absolute Neutrophil 10.0 (H) 1.6 - 8.3 10e9/L [facility] Absolute Lymphocytes 2.2 0.8 - 5.3 10e9/L [facility] Absolute Monocytes 1.1 0.0 - 1.3 10e9/L [facility] Absolute Eosinophils 0.3 0.0 - 0.7 10e9/L [facility] Absolute Basophils 0.1 0.0 - 0.2 10e9/L [facility] Specimen Anatomical Collection Method Collection Time Receive d Time (Source) Location / / Volume Laterality Blood specimen 10/27/2016 10:28 7 (specimen) AM [facility] 10:29 AM [facility] Kalin Suh MD LAB - BLOOD ORDERABLES Performing Organization Address City/State/ZIP Code Phon e Number [facility] [address] [place] [address] documented in this encounter Visit Diagnoses Diagnosis Rib pain - Primary Chest pain, unspecified documented in this encounter Additional Health Concerns Assessment Noted Time PHQ-9 Depression Total Score: 5 07/29/2016 7:17 AM CDT documented as of this encounter Care Teams Data Scientist Relationship Specialty Start Date End Date Kalin Suh MD PCP - General Family Practice 07/04/16 06/15/17 [address] [place] [address] documented as of this encounter
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
--- OUTSIDE RECORDS SUMMARY | 2022-09-07 12:02 | XMS_ITS | Encounter Summary ---
:1995 Author Organization [place] Address [address] [place] [address] Care Team Providers Name Role Phone Kalin Suh MD Primary Care Provider Reason for Visit Reason Comments Vaginal Bleeding Encounter Details Date Type Department Care Team Description 06/01/2017 Emergency [facility] Otoniel Wilcox Cla, MD Acute cystitis with [facility] Emergency Dep t [facility]ERG[facility] PH[facility] hematuria [address] [place], [place] [address] [facility] [address] [place] [address] [phone] (Wo rk) Social History Tobacco Use Types [...] easy bruising Date Last Reviewed: 06/11/2016 ?? [id number] [employer]. [address] [place] [address]. All rights reserved. This information is not [...] done in the presence of a female cartographic aide. Laboratory: CBC: WBC 23.0 (H), o/w WNL [...] for 7 days Scribe Disclosure: Garfield Shaikh [facility] EMERGENCY [facility]PARTMENT I, Garfield Shaikh, am [...] Vagina 06/01/2017 [facility] Descrip 6:47 PM CDT [facility] N Gonorrhea Negative NEG^Negati 06/02/2017 [facility] ve 1:55 PM CDT [facility] Comment: Negative for N. gonorrhoeae rRNA by hernandez scription mediated amplification. A negative result by linotype machinist media lainey amplification does not preclude the presence of N. gonorrhoeae infection because results are dependent on proper and adequate collection, absence of inhibitors, and sufficient rRNA to be detected. Specimen Anatomical Collection Method Collection Time Receive d Time (Source) Location / / Volume Laterality Specimen from 06/01/2017 6:36 PM 06/01/20 17 6:47 vagina CDT PM CDT (specimen) tOoniel Wilcox MD LAB - MICRO GENERAL ORDERABL ES Performing Organization Address City/[facility] Phon e Number [address] [place] [id number] [facility] [phone] Chlamydia trachomatis PCR (06/01/2017 6:36 PM CDT) [facility] [place] Method Time Signature Specimen Vagina 06/01/2017 [facility] Description 6:47 PM T [facility] Chlamydia Negative NEG^Negat 06/02/2017 [facility] Trachomatis PCR herrera 1:55 PM CDT [facility] Comment: Negative for C. trachomatis rRNA by hernandez scription mediated amplification. A negative result by linotype machinist media lainey amplification does not preclude the [...] MICRO GENERAL ORDERABL ES Performing Organization Address City/[facility] Phon e Number [id number] [place] [address] [address] [place], [place] [address] [facility] [phone] Wet prep (06/01/2017 6:36 PM CDT) [facility] [place] Method Time Signature Specimen Vagina [facility] Description [facility] Wet Prep Few 06/01/2017 [facility] PMNs seen 6:51 PM [facility] Wet Prep No yeast seen 06/01/2017 [facility] 6:51 PM [facility] Wet Prep No clue cells 06/01/2017 [facility] seen 6:51 PM [facility] Wet Prep No Trichomonas 06/01/2017 [facility] seen 6:51 PM [facility] Specimen Anatomical Collection Method Collection Time Receive d Time (Source) Location / / Volume Laterality Specimen from 06/01/2017 6:36 PM 06/01/20 17 6:47 vagina CDT PM CDT (specimen) Otoniel Wilcox MD LAB - MICRO GENERAL ORDERABL ES Performing Organization Address City/State/ZIP Code Phon e Number [facility] [address] [place], [place] [address] [facility] [address] [phone] (ABNORMAL) CBC with platelets differential (06/01/2017 6:20 PM CDT) [facility] Method Time Signature WBC 23.0 (H) 4.0 - 06/01/2017 [facility] 11.0 6:38 PM [facility] RBC Count 4.82 3.8 - 5.2 06/01/2017 [facility] 10e12/L 6:38 PM [facility] Hemoglobin 15.6 11.7 - 06/01/2017 [facility] 15.7 g/dL 6:38 PM [facility] Hematocrit 47.0 35.0 - 06/01/2017 [facility] 47.0 % 6:38 PM [facility] MCV 98 78 - 100 06/01/2017 [facility] fl 6:38 PM [facility] MCH 32.4 26.5 - 06/01/2017 [facility] 33.0 pg 6:38 PM [facility] MCHC 33.2 31.5 - 06/01/2017 [facility] 36.5 g/dL 6:38 PM [facility] RDW 12.8 10.0 - 06/01/2017 [facility] 15.0 % 6:38 PM [facility] Platelet Count 282 150 - 450 06/01/2017 [facility] 10e9/L 6:38 PM [facility] Diff Method Automated 06/01/2017 [facility] Method 6:38 PM [facility] % Neutrophils 80.7 % 06/01/2017 [facility] 6:38 PM [facility] % Lymphocytes 10.5 % 06/01/2017 [facility] 6:38 PM [facility] % Monocytes 7.2 % 06/01/2017 [place] 6:38 PM [facility] % Eosinophils 0.7 % 06/01/2017 [place] 6:38 PM [facility] % Basophils 0.4 % 06/01/2017 [place] 6:38 PM [facility] % Immature 0.5 % 06/01/2017 [place] Granulocytes 6:38 PM [facility] Nucleated RBCs 0 0 /100 06/01/2017 [place] 6:38 PM [facility] Absolute 18.5 (H) 1.6 - 8.3 06/01/2017 [place] Neutrophil 10e9/L 6:38 PM [facility] Absolute 2.4 0.8 - 5.3 06/01/2017 [place] Lymphocytes 10e9/L 6:38 PM [facility] Absolute 1.7 (H) 0.0 - 1.3 06/01/2017 [place] Monocytes 10e9/L 6:38 PM [facility] Absolute 0.2 0.0 - 0.7 06/01/2017 [place] Eosinophils 10e9/L 6:38 PM [facility] Absolute 0.1 0.0 - 0.2 06/01/2017 [place] Basophils 10e9/L 6:38 PM [facility] Abs Immature 0.1 0 - 0.4 06/01/2017 [place] Granulocytes 10e9/L 6:38 PM [facility] Absolute 0.0 06/01/2017 [place] Nucleated RBC 6:38 PM [facility] Specimen Anatomical Collection Method Collection Time Receive d Time (Source) Location / / Volume Laterality Blood specimen 06/01/2017 6:20 PM 017 6:34 (specimen) CDT PM CDT Otoniel Wilcox MD LAB - BLOOD ORDERABLES Performing Organization Address City/State/ZIP Code Phon e Number M [facility] [address] [place], [place] [address] [facility] [address] [place] [address] [phone] (ABNORMAL) Basic metabolic panel (06/01/2017 6:20 PM CDT) athologist Signature Sodium 137 133 - 144 06/01/2017 [place] mmol/L 6:54 PM [facility] Potassium 4.1 3.4 - 5.3 06/01/2017 [place] mmol/L 6:54 PM [facility] Chloride 102 94 - 109 06/01/2017 [place] mmol/L 6:54 PM [facility] Carbon Dioxide 30 20 - 32 06/01/2017 [place] mmol/L 6:54 PM [facility] Anion Gap 5 3 - 14 06/01/2017 [place] mmol/L 6:54 PM [facility] Glucose 106 (H) 70 - 99 06/01/2017 [place] mg/dL 6:54 PM [facility] Urea Nitrogen 9 7 - 30 06/01/2017 [place] mg/dL 6:54 PM [facility] Creatinine 0.64 0.52 - 06/01/2017 [place] 1.04 mg/dL 6:54 PM [facility] GFR Estimate >90 >60 06/01/2017 [place] mL/min/1.7 6:[address] Comment: Non GFR Calc GFR Estimate If >90 >60 mL/min/1.7m2 06/01/2017 6:54 P [facility] Comment: GFR Calc Calcium 9.5 8.5 - 10.1 mg/dL 06/01/2017 6:54 PM [facility] Specimen Anatomical Collection Method Collection Time Receive d Time (Source) Location / / Volume Laterality Blood specimen 06/01/2017 6:20 PM 017 6:34 (specimen) CDT PM CDT Otoniel Wilcox MD LAB - BLOOD ORDERABLES Performing Organization Address City/State/ZIP Code Phon e Number [facility] [address] [place], [place] [address] [facility] [address] [phone] HCG qualitative urine (06/01/2017 5:05 PM CDT) athologist Signature HCG Qual Urine Negative NEG^Negati 06/01/2017 [place] ve 5:45 PM [facility] Comment: This test is for screening purposes. ??R esults should be interpreted along with the clinical picture. ??Confirmation te sting is available if warranted by ordering [id number], HCG Quantitative Pregna ncy. Specimen Anatomical Collection Method Collection Time Receive d Time (Source) Location / / Volume Laterality Urine specimen URINE SPECIMEN 06/01/2017 5:05 PM 06/01 5:24 (specimen) OBTAINED BY CLEAN CDT PM CDT CATCH PROCEDURE / Unknown Viri Patel PA-C LAB - URINE ORDERABLES Performing Organization Address City/State/ZIP Code Phon e Number [facility] [address] [place] [address] [facility] [address] [phone] (ABNORMAL) UA with Microscopic (06/01/2017 5:05 PM CDT) [facility] Method Time Signature Color Urine Red 06/01/2017 [place] 5:45 PM [facility] Appearance Urine Cloudy 06/01/2017 [place] 5:45 PM [facility] Glucose Urine Negative NEG^Negat 06/01/2017 [place] herrera mg/dL 5:47 PM [facility] Bilirubin Urine Negative NEG^Negat 06/01/2017 [place] herrera 5:47 PM [facility] Ketones Urine 20 (A) NEG^Negat 06/01/2017 [place] herrera mg/dL 5:47 PM [facility] Specific [place] 1.020 1.003 - 06/01/2017 [place] Urine 1.035 5:47 PM [facility] Blood Urine Large (A) NEG^Negat 06/01/2017 [place] herrera 5:45 PM [facility] pH Urine 5.0 5.0 - 7.0 06/01/2017 [place] pH 5:47 PM [facility] Protein Albumin 100 (A) NEG^Negat 06/01/2017 [place] Urine herrera mg/dL 5:47 PM [facility] Urobilinogen 0.0 0.0 - 2.0 06/01/2017 [place] mg/dL mg/dL 5:47 PM [facility] Nitrite Urine Negative NEG^Negat 06/01/2017 [place] herrera 5:47 PM [facility] Leukocyte Moderate (A) NEG^Negat 06/01/2017 [place] Esterase Urine herrera 5:47 PM [facility] Source Midstream 06/01/2017 [place] Urine 5:24 PM [facility] WBC Urine >182 (H) 0 - 2 06/01/2017 [place] /HPF 5:47 PM [facility] RBC Urine >182 (H) 0 - 2 06/01/2017 [facility] /HPF 5:47 PM [facility] WBC Clumps Present (A) NEG^Negat 06/01/2017 [place] herrera /HPF 5:47 PM [facility] Bacteria Urine Moderate (A) NEG^Negat 06/01/2017 [place] herrera /HPF 5:47 PM [facility] Squamous 10 (H) 0 - 1 06/01/2017 [place] Epithelial /HPF /HPF 5:47 PM [facility] Mucous Urine Present (A) NEG^Negat 06/01/2017 [place] herrera /LPF 5:47 PM [facility] Specimen (Source) Anatomical Collection Method Collection Time Re ceived Time Location / / Volume Laterality Examination of URINE SPECIMEN 06/01/2017 5:05 06/01/20 17 5:24 midstream urine OBTAINED BY CLEAN PM [facility] specimen CATCH PROCEDURE / (procedure) Unknown Viri Patel PA-C LAB - URINE ORDERABLES Performing Organization Address City/State/ZIP Code Phon e Number M [place] [address] [place] [address] [place] [address] [phone] documented in this encounter Visit Diagnoses Diagnosis [...] documented as of this encounter Care Teams Appraisal Manager Relationship Specialty Start Date End Date Kalin Suh MD PCP - General Family Practice 07/04/16 06/15/17 [address] [place] [address] documented as of this encounter
--- OUTSIDE RECORDS SUMMARY | 2022-09-07 12:02 | XMS_ITS | Encounter Summary ---
:1995 Author Organization [place] Address [address] [place] [address] Care Team Providers Name Role Phone Kalin Suh MD Primary Care Provider Tamiko Simons GASOLINE TRACTOR OPERATOR Unavailable Encounter Details Date Type Department Care Team Description 03/07/2017 Telephone [facility] Benita Ken, RN [address] [place] [address] Social History Tobacco Use Types Packs/Day [...] heard from them. Documentation and letter in [facility] read to caller. Telephone number to SW [...] documented as of this encounter Care Teams Returns Processor Relationship Specialty Start Date End Date Kalin Suh MD PCP - General Family Practice 07/04/16 06/15/17 [address] [place] [address] Tamiko Simons MSW Metal Casket Maker 03/02/17 03/09/17 documented as of this encounter
--- OUTSIDE RECORDS SUMMARY | 2022-09-07 12:02 | XMS_ITS | Encounter Summary ---
:1995 Author Organization [place] Address [address] [place] [address] Care Team Providers Name Role Phone Kalin Suh MD Primary Care Provider Reason for Visit Reason Comments Rib Pain Encounter Details Date Type Department Care Team Description 11/11/2016 Office Visit [facility] Aleena Sam Acu te bronchitis, unspecified organism (Primary Dx); [facility] DO Painful respiration; [address] [place] [address] RD Rib pain; [facility] [place] [phone] [facility] [phone] [place] [address] (Wo rk) Social History Tobacco [...] Comments Blood Pressure 122/74 11/11/2016 4:13 PM OPTICAL INSTRUMENT REPAIRER Pulse 76 11/11/2016 4:13 PM OPTICAL INSTRUMENT REPAIRER Temperature 36.7 ??C (98 ??F) 11/11/2016 4:13 PM OPTICAL INSTRUMENT REPAIRER Respiratory Rate 14 11/11/2016 4:13 PM OPTICAL INSTRUMENT REPAIRER Oxygen Saturation - - Inhaled Oxygen Concentration - - Weight 54.5 kg (120 lb 3.2 oz) 11/11/2016 4:13 PM OPTICAL INSTRUMENT REPAIRER Height - - Body Mass Index 21.29 11/02/2016 3:33 PM OPTICAL INSTRUMENT REPAIRER documented in this encounter Progress Notes Enrike Aleena Allie, DO - 11/11/2016 4:08 PM CST SUBJECTIVE: Joel Amos is a [...] list, Allergies, and Medical/Social/Surgical histories reviewed in [facility] andupdated as appropriate. ROS: Constitutional, HEENT, [...] worsening or not improving Aleena Calvert DO [facility] CAL INSTRUMENT REPAIRER documented in this encounter Nursing Notes Jed [...] cuff size: small regular Jed Reese CMA CAL INSTRUMENT REPAIRER documented in this encounter Plan of Treatment Not on filedocumented as of this encounter Visit Diagnoses Diagnosis Acute bronchitis, unspecified organism - Primary Painful respiration Rib pain Chest pain, unspecified Anxiety Anxiety state, unspecified documented in this encounter Additional Health Concerns Assessment Noted Time PHQ-9 Depression Total Score: 5 07/29/2016 7:17 AM CDT documented as of this encounter Care Teams Luster Applicator Relationship Specialty Start Date End Date Kalin Suh MD PCP - General Family Practice 07/04/16 06/15/17 [address] [place] [address] documented as of this encounter
--- OUTSIDE RECORDS SUMMARY | 2022-09-07 12:03 | XMS_ITS | Encounter Summary ---
:1995 Author Organization [place] Address [address] [place] [address]. [place] [address] Care Team Providers Name Role Phone Daniel [facility] Primary Care Provider [phone] Reason for Visit Reason Onset Date Comments Panel Management 06/10/2016 Encounter Details Date Type Department Care Team Description 06/10/2016 Telephone [facility] Bianca Suh MD Panel Management [address] [phone] Social History Tobacco Use Types Packs/Day Years [...] documented as of this encounter Care Teams Online Content Developer Relationship Specialty Start Date End Date Clinic, [facility] PCP - General 12/26/14 07/03/16 [address] [place] [address] documented as of this encounter
--- OUTSIDE RECORDS SUMMARY | 2022-09-07 12:03 | XMS_ITS | Encounter Summary ---
:1995 Author Organization [place] Address [address] [facility] [place] [address] Care Team Providers Name Role Phone [facility] Primary Care Provider [phone] Reason for Visit Reason Comments Rule out rupture of membranes Auth/Cert - Closed Specialty Diagnoses / Procedures Referred By Contact Refer red To Contact inside parts sales Diagnoses Indication for care in labor or delivery Active labor Spontaneous vaginal delivery Rh Procedures SECTION STANDBY [address] [place], [place] [address] Phone: Fax: Referral ID Status Reason Start Date Expiration Date Visits Requ ested Visits Authorized [id number] Closed 1 1 Encounter Details Date Type Department Care Team Description 03/24/2015 Surgery [facility] Seymour Ko MD Not Performed PLACE [facility] es [address] [facility] ON STAND, SURGERY [address] [place] [address] TEAM, [place] [address] SECTION [address] [phone] Social History Tobacco Use Types Packs/Day Years [...] 19 year old who was admitted to [facility] L/D at 37 weeks gestation with premature [...] delivery pain Vit-Fe Take 1 tablet by 100 tablet 3 08/03/2014 Fumarate-FA ( mouth daily VITAMINS PLUS) 27-1 MG TABSIndications: Supervision of normal first , first trimester senna-docusate Take 1-2 tablets by 30 tablet 0 03/26/2015 0 06/18/2015 (SENOKOT-S;PERICOLACE) mouth 2 times daily 8.6-50 MG per tabletIndications: Spontaneous vaginal delivery Vit-Fe Take 1 tablet by 0 12/07/2014 Fumarate-FA ( mouth Take 1 tablet MULTIVITAMIN PLUS IRON) by mouth 27-0.8 MG TABS per tablet documented as of this encounter Progress Notes [...] Ko MD - 03/27/2015 7:08 AM CDT [facility] Obstetrics Progress Note Subjective: This is [...] Venegas MD - 03/26/2015 8:34 AM CDT [facility] Obstetrics Progress Note Subjective: This is [...] They live together at [address] [facility] with Win's parents and brother. Twins Genesis Cervantes and Sade Shelley are their first children together and they are prepared for them at home. Joel is on WIC and has a PHN Jaswinder with [facility]. SW faxed referral to Jaswinder per [...] of the cord) Small hymenal tear repaired NHS=866 cc documented in this encounter H&P Notes [...] 1:24 PM CDT Pt to stay until 2994-[address] Petit to due to blood [...] 7. Patient set up to start pushing. [employer] paged to come for delivery. 1710: [employer] here for delivery. 1715: Delivery of [...] EM#[id number] Name: JOEL ROBLERO MRN: [id number] Account: [id number] : 1995 Delivery Date: 03/24/2015 Document: [id number] Provider Notification - Brii Mota RN - [...] 12:38 PM CDT Data: Patient presented to [facility] at 1100. Reason for maternal/ assessment [...] Signature AST 29 0 - 35 U/L [facility] Specimen Anatomical Collection Method Collection Time Receive d Time (Source) Location / / Volume Laterality Blood specimen 03/28/2015 6:31 AM 015 7:07 (specimen) CDT AM CDT Seymour Ko MD LAB - BLOOD ORDERABLES Performing Organization Address City/[facility]/ZIP [facility] [place] [facility] [address] [place], [place] [address] [phone] [place] [address] [phone] (ABNORMAL) Creatinine (03/27/2015 6:42 AM CDT) [facility] gist Method Time Signature Creatinine 0.46 (L) 0.50 - [place] 1.00 [facility] mg/dL [facility] GFR Estimate >90 >60 [place] Non GFR Calc mL/min/1. [place] 7m2 [facility] GFR Estimate >90 >60 [place] If Black GFR Calc mL/min/1. [facility] [facility] 7m2 [facility] Specimen Anatomical Collection Method Collection Time Receive d Time (Source) Location / / Volume Laterality Blood specimen 03/27/2015 6:42 AM 015 6:59 (specimen) CDT AM CDT Yolande Venegas MD LAB - BLOOD ORDERABLES Performing Organization Address City/[facility]/ZIP Code Phon e Number [facility] [address] [place], [place] [address] [facility] [address] [place], [place] [address] [phone] (ABNORMAL) CBC with platelets (03/27/2015 6:42 AM CDT) Analysis Performed At Patho logist Time Signature WBC 12.6 (H) 4.0 - 11.0 [place] 10e9[facility] RBC Count 3.92 3.8 - 5.2 [place] 10e12/L [facility] Hemoglobin 13.1 11.7 - [place] 15.7 g/dL [facility] Hematocrit 38.2 35.0 - [place] 47.0 % [facility] MCV 97 78 - 100 [facility] MCH 33.4 (H) 26.5 - [place] 33.0 pg [facility] MCHC 34.3 31.5 - [place] 36.5 g/dL [facility] RDW 13.4 10.0 - [place] 15.0 % [facility] Platelet Count 209 150 - [address] Specimen Anatomical Collection Method Collection Time Receive d Time (Source) Location / / Volume Laterality Blood specimen 03/27/2015 6:42 AM 015 6:59 (specimen) CDT AM CDT Yolande Venegas MD LAB - BLOOD ORDERABLES Performing Organization Address City/State/ZIP Code Phon e Number [place] [address] [address] [place], [place] [address] [facility] [address] [place], [place] [address] [phone] (ABNORMAL) ALT (03/27/2015 6:42 AM CDT) P athologist Signature ALT 74 (H) 0 - 50 U/L [facility] Specimen Anatomical Collection Method Collection Time Receive d Time (Source) Location / / Volume Laterality Blood specimen 03/27/2015 6:42 AM 015 6:59 (specimen) CDT AM CDT Yolande Venegas MD LAB - BLOOD ORDERABLES Performing Organization Address City/State/ZIP Code Phon e Number [facility] [address] [place], [place] [address] [facility] [address] [place], [place] [address], [place] [phone] (ABNORMAL) AST (03/27/2015 6:42 AM CDT) athologist Signature AST 60 (H) 0 - 35 U/L [facility] Specimen Anatomical Collection Method Collection Time Receive d Time (Source) Location / / Volume Laterality Blood specimen 03/27/2015 6:42 AM 015 6:59 (specimen) CDT AM CDT Yolande Venegas MD LAB - BLOOD ORDERABLES Performing Organization Address City/[facility]/ZIP Code Phon e Number [facility] [address] [place], [place] [address] [place] [address] [address] [place], [place] [address], [place] [phone] Creatinine (03/26/2015 6:35 AM CDT) [facility] Method Time Signature Creatinine 0.56 0.50 - [place] 1.00 [facility] mg/dL [facility] GFR Estimate >90 >60 [place] Non GFR Calc mL/min/1. [place] 7m2 [facility] GFR Estimate >90 >60 [place] If Black GFR Calc mL/min/1. [facility] 7m2 [facility] Specimen Anatomical Collection Method Collection Time Receive d Time (Source) Location / / Volume Laterality 03/26/2015 6:35 AM 5 6:53 CDT AM CDT Estrella Hays PA-C LAB - BLOOD ORDERABLES Performing Organization Address City/State/ZIP Code Phon e Number [facility] [address] [place], [place] [address] [place] [address] [address] [place], [place] [address], [place] [phone] (ABNORMAL) AST (03/26/2015 6:35 AM CDT) athologist Signature AST 69 (H) 0 - 35 U/L [facility] Specimen Anatomical Collection Method Collection Time Receive d Time (Source) Location / / Volume Laterality 03/26/2015 6:35 AM 5 6:53 CDT AM CDT Estrella Hays PA-C LAB - BLOOD ORDERABLES Performing Organization Address City/State/ZIP Code Phon e Number [facility] [address] [place], [place] [address] [facility] [address] [place], [place] [address], [place] [phone] ALT (03/26/2015 6:35 AM CDT) P athologist Signature ALT 47 0 - 50 U/L [facility] Specimen Anatomical Collection Method Collection Time Receive d Time (Source) Location / / Volume Laterality 03/26/2015 6:35 AM 5 6:53 CDT AM CDT Estrella Hays PA-C LAB - BLOOD ORDERABLES Performing Organization Address City/[facility] Phon e Number [facility] [address] [place], [place] [address] [place] [address] [address] [place], [place] [address], [place] [phone] (ABNORMAL) CBC with platelets (03/26/2015 6:35 AM CDT) Analysis Performed At Patho logist Time Signature WBC 15.0 (H) 4.0 - 11.0 [place] 10e9/L [facility] RBC Count 3.88 3.8 - 5.2 [place] 10e12/L [facility] Hemoglobin 13.1 11.7 - [place] 15.7 g/dL [facility] Hematocrit 38.7 35.0 - [place] 47.0 % [facility] MCV 100 78 - 100 [facility] MCH 33.8 (H) 26.5 - [facility] 33.0 pg [facility] MCHC 33.9 31.5 - [place] 36.5 g/dL [facility] RDW 13.4 10.0 - [place] 15.0 % [facility] Platelet Count 187 150 - 450 [place] 10e9L [facility] Specimen Anatomical Collection Method Collection Time Receive d Time (Source) Location / / Volume Laterality Blood specimen 03/26/2015 6:35 AM 015 6:53 (specimen) CDT AM CDT Estrella Hays PA-C LAB - BLOOD ORDERABLES Performing Organization Address City/State/ZIP Code Phon e Number [facility] [address] [place], [place] [address] [facility] [address] [place], [place] [address], [place] [phone] Hemoglobin (03/25/2015 6:50 AM CDT) P athologist Signature Hemoglobin 12.9 11.7 - 15.7 [facility] g/dL [facility] Specimen Anatomical Collection Method Collection Time Receive d Time (Source) Location / / Volume Laterality Blood specimen 03/25/2015 6:50 AM 015 7:02 (specimen) CDT AM CDT Seymour Ko MD LAB - BLOOD ORDERABLES Performing Organization Address City/State/ZIP Code Phon e Number [facility] [address] [place], [place] [address] [place] [address] [address] [place], [place] [address], [place] [phone] Creatinine (03/24/2015 8:52 PM CDT) [facility] Method Time Signature Creatinine 0.53 0.50 - [place] 1.00 [place] mg/dL [facility] GFR Estimate >90 >60 [place] Non GFR Calc mL/min/1. [place] 7m2 [facility] GFR Estimate >90 >60 [place] If Black GFR Calc mL/min/1. [facility] 7m2 [facility] Specimen Anatomical Collection Method Collection Time Receive d Time (Source) Location / / Volume Laterality Blood specimen 03/24/2015 8:52 PM 015 8:56 (specimen) CDT PM CDT Seymour Ko MD LAB - BLOOD ORDERABLES Performing Organization Address City/State/ZIP Code Phon e Number [facility] [address] [place], [place] [address] [facility] [address] [place], [place] [address], [place] [phone] (ABNORMAL) Urea nitrogen (03/24/2015 8:52 PM CDT) athologist Signature Urea Nitrogen 5 (L) 7 - 19 [place] mg/dL [facility] Specimen Anatomical Collection Method Collection Time Receive d Time (Source) Location / / Volume Laterality Blood specimen 03/24/2015 8:52 PM 015 8:56 (specimen) CDT PM CDT Seymour Ko MD LAB - BLOOD ORDERABLES Performing Organization Address City/State/ZIP Code Phon e Number [facility] [address] [place], [place] [address] [facility] [address] [place], [place] [address], [place] [phone] (ABNORMAL) Uric acid (03/24/2015 8:52 PM CDT) athologist Signature Uric Acid 5.4 (H) 2.1 - 5.0 [place] mg/[facility] Specimen Anatomical Collection Method Collection Time Receive d Time (Source) Location / / Volume Laterality Blood specimen 03/24/2015 8:52 PM 015 8:56 (specimen) CDT PM CDT Seymour Ko MD LAB - BLOOD ORDERABLES Performing Organization Address City/State/ZIP Code Phon e Number [facility] [address] [place], [place] [address] [facility] [address] [place], [place] [address], [place] [phone] ALT (03/24/2015 8:52 PM CDT) athologist Signature ALT 16 0 - 50 U/L [facility] Specimen Anatomical Collection Method Collection Time Receive d Time (Source) Location / / Volume Laterality Blood specimen 03/24/2015 8:52 PM 015 8:56 (specimen) CDT PM CDT Seymour Ko MD LAB - BLOOD ORDERABLES Performing Organization Address City/State/ZIP [facility] [place] Number [facility] [address] [place], [place] [address] [place] [address] [address] [place], [place] [address], [place] [phone] AST (03/24/2015 8:52 PM CDT) P athologist Signature AST 28 0 - 35 U/L [facility] Specimen Anatomical Collection Method Collection Time Receive d Time (Source) Location / / Volume Laterality Blood specimen 03/24/2015 8:52 PM 015 8:56 (specimen) CDT PM CDT Seymour Ko MD LAB - BLOOD ORDERABLES Performing Organization Address [facility] Phon e Number [facility] [address] [place], [place] [address] [place] [address] [address] [place], [place] [address], [place] [phone] (ABNORMAL) CBC with platelets (03/24/2015 8:52 PM CDT) Analysis Performed At Patho logist Time Signature WBC 24.7 (H) 4.0 - 11.[address]9[facility] RBC Count 4.04 3.8 - 5.2 [place] 10e12[facility] Hemoglobin 13.6 11.7 - [place] 15.7 g/dL [facility] Hematocrit 39.0 35.0 - [place] 47.0 % [facility] MCV 97 78 - 100 [facility] MCH 33.7 (H) 26.5 - [place] 33.0 pg [facility] MCHC 34.9 31.5 - [place] 36.5 g/dL [facility] RDW 12.9 10.0 - [place] 15.0 % [facility] Platelet Count 191 150 - 450 [place] [address] Specimen Anatomical Collection Method Collection Time Receive d Time (Source) Location / / Volume Laterality Blood specimen 03/24/2015 8:52 PM 015 8:56 (specimen) CDT PM CDT Seymour Ko MD LAB - BLOOD ORDERABLES Performing Organization Address City/State/ZIP Code Phon e Number [facility] [address] [place], [place] [address] [facility] [address] [place], [place] [address] [phone] Placenta path order and indications (03/24/2015 6:29 PM CDT) Component Value Ref Test Analysis Performed At [facility] gist Range Method Time Signature Copath Report Patient Name: JOEL ROBLERO MR#: [id number] Specimen #: [id number] Collected: 03/24/2015 Received: 03/25/2015 Reported: 03/27/2015 12:38 [...] placental parenchyma is red-purple and spongy throughout. ??Manager Massage Department sections are submitted. Cassette 1-twin A's umbilical [...] MD 03/26/2015 11:59 AM) CPT Codes: A: 31242-MM2(2) TESTING LAB LOCATION: [address] ??[address] COLLECTION SITE: Client: [facility] Location: RH (R) Specimen Anatomical Collection Method Collection Time Receive d Time (Source) Location / / Volume Laterality Specimen from 03/24/2015 6:29 PM 03/25/20 15 7:59 placenta CDT AM CDT (specimen) Seymour Ko MD LAB - BEAKER AP Performing Organization Address City/[facility]/ZIP Code Phon e Number [facility] ABO/Rh type and screen (03/24/2015 11:56 AM CDT) [facility] Method Time Signature ABO A [facility] RH(D) Pos [facility] Antibody Neg [place] Screen [facility] Test Valid [facility] Only At [facility] Specimen 03/27/2015 [place] Expires [facility] Specimen Anatomical Collection Method Collection Time Receive d Time (Source) Location / / Volume Laterality 03/24/2015 11:56 03/24/2015 1:24 AM CDT PM CDT Seymour Ko MD LAB - BLOOD BANK TEST ORDER Performing Organization Address City/[facility] Phon e Number [place] [address] [address] [place] [address] [facility] [address] [place] [phone] (ABNORMAL) CBC with platelets differential (03/24/2015 11:56 AM CDT) [facility] Method Time Signature WBC 9.5 4.0 - [place] 11.0 [facility] 10e9/[facility] RBC Count 3.97 3.8 - 5.2 [place] 10e12/L [facility] Hemoglobin 13.2 11.7 - [place] 15.7 g/dL [facility] Hematocrit 38.8 35.0 - [place] 47.0 % [facility] MCV 98 78 - 100 [facility] MCH 33.2 (H) 26.5 - [place] 33.0 pg [facility] MCHC 34.0 31.5 - [place] 36.5 g/dL [facility] RDW 13.1 10.0 - [place] 15.0 % [facility] Platelet Count 176 150 - 450 [place] [address]e9/L [facility] Diff Method Automated [facility] % Neutrophils 69.9 % [facility] % Lymphocytes 18.8 % [facility] % Monocytes 9.4 % [facility] % Eosinophils 1.1 % [facility] % Basophils 0.2 % [facility] % Immature 0.6 % [place] Granulocytes [facility] Absolute 6.6 1.6 - 8.3 [place] Neutrophil 10e9/L [facility] Absolute 1.8 0.8 - 5.3 [place] Lymphocytes 10e9/L [facility] Absolute 0.9 0.0 - 1.3 [place] Monocytes 10e9/L [facility] Absolute 0.1 0.0 - 0.7 [place] Eosinophils 10e9/[facility] Absolute 0.0 0.0 - 0.2 [place] Basophils 10e9/[facility] Abs Immature 0.1 0 - 0.4 [place] Granulocytes [address] [place] [address] Specimen Anatomical Collection Method Collection Time Receive d Time (Source) Location / / Volume Laterality Blood specimen 03/24/2015 11:56 5 (specimen) AM CDT 12:06 PM CDT Seymour Ko MD LAB - BLOOD ORDERABLES Performing Organization Address City/[facility]/ZIP Code Phon e Number [place] [address] [address] [place], [place] [address] [place] [address] [address] [place] [address], [place] [phone] (ABNORMAL) Rupture of membranes by Amnisure (03/24/2015 11:23 AM CDT) P athologist Signature Amnisure Positive (A) NEG [facility] Specimen (Source) Anatomical Collection Method Collection Time Re ceived Time Location / / Volume Laterality Cervicovaginal 03/24/2015 11:23 5 Secretions AM CDT 11:33 AM CDT Seymour Ko MD LAB - BODY FLUIDS ORDERABLES Performing Organization Address City/[facility]/ZIP [facility] [place] Number [facility] [address] [place], [place] [address] [place] [address] [address] [place], [place] [address], [place] [phone] NON-STRESS TEST - HIM SCAN (03/24/2015 12:00 [...] RN)1226 (Given - Provider: Brii Sheriff RN) Routine, 1 tablet, Oral, EVERY 8 HOURS S CHEDULED, First dose on Wed03/25/15 at 1630, Take [...] Provider: Bonnie Zepeda RN - Comment: pt sleeping)1472 (Given - Provider: Nakia De León RN) 0947 (Given - Provider: Brii Sheriff RN)1656 (Given - Provider: Bonnie Zepeda RN) 200 mg, Oral, 3 TIMES DAILY, First dose (after last modification) on Wed03/27/15 at 1600, For Adults, Hold if HR < 60. magnesium sulfate 4 g in water intermittent infusion ( COMPLETED) 1424 (New Bag - Provider: Maricarmen Oro RN) 4 g, Intravenous, ONCE, On Wed03/26/15 a t 1200, For 1 dose, FOR SEIZURE PROPHYLAXIS [...] 453 (New Bag - Provider: Coco Lezama, ERROL - Comment: double checked with Joanie Mitchell RN) 0052 (New Bag - Provider: Merry Rodríguez)0845 (New Bag - Provider: Brii Sheriff, ERROL)1115 (New Bag - Provider: Brii Sheriff, ERROL) 2 g/hr (50 mL/hr), Intravenous, CONTINUO US, Starting on Wed03/26/15 at 1215, Not for [...] 6 HOURS PRN, oth er, cramping, Starting on 03/24/15 at 1911, Max dose 3200 mg/day. oxyCODONE (ROXICODONE) immediate release tablet 5-10 mg 5-10 mg, Oral, EVERY 3 HOURS PRN, modera te to severe pain, Starting 03/24/15 at 1911 documented in this encounter Care Teams Spray Pilot Relationship Specialty Start Date End Date Clinic, [facility] PCP - General 12/26/14 07/03/16 [place] [address] documented as of this encounter
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
--- OUTSIDE RECORDS SUMMARY | 2022-09-07 12:03 | XMS_ITS | Encounter Summary ---
:1995 Author Organization [place] Address [address] [facility] [place] [address] Care Team Providers Name Role Phone Daniel [facility] Primary Care Provider [phone] Reason for Visit Reason Comments Recheck Medication depression meds Encounter Details Date Type Department Care Team Description 06/18/2016 Office Visit [facility] Kalin Suh MD Moderate bipolar II Clinic [place] [id number] [place] [address] disorder, most recent [id number] [place] [address] [place] [address] depressive (H) [address] (Primary Dx) Social History [...] 06/02/2016 06/16/2016 Total Score 21 7 PHQ-9 Spanish PHQ-9 Any Language GAD7 ?? Amount of [...] (via phone or visit) Kalin Suh MD [facility] documented in this encounter Nursing Notes Gabi [...] documented as of this encounter Care Teams Upper Stitcher Relationship Specialty Start Date End Date Clinic, [facility] PCP - General 12/26/14 07/03/16 [address] [place] [address] documented as of this encounter
--- OUTSIDE RECORDS SUMMARY | 2022-09-07 12:03 | XMS_ITS | Encounter Summary ---
:1995 Author Organization [place] Address [address] [place] [address] Care Team Providers Name Role Phone [facility], [facility] Primary Care Provider [phone] Encounter Details Date Type Department Care Team Description 03/24/[address] [facility] Yassine Chakraborty MD [facility] [address] [facility] [place] [address] [facility] [address] [address] [place], [place] [address] (Wo rk) Anesthesia Record [...] Modules edited: Clinical Notes Clinical Notes: File: [id number] documented in this encounter Plan of Treatment [...] started. Yassine Chakraborty MD Yassine Chakraborty MD [place] [facility] documented in this encounter Visit Diagnoses Not on filedocumented in this encounter Care Teams Umbrella Supervisor Relationship Specialty Start Date End Date [facility], [facility] PCP - General 12/26/14 07/03/16 [place] [address] documented as of this encounter
--- OUTSIDE RECORDS SUMMARY | 2022-09-07 12:03 | XMS_ITS | Encounter Summary ---
:1995 Author Organization [place] Address [address] [place] [address] Care Team Providers Name Role Phone [facility] Primary Care Provider [phone] Encounter Details Date Type Department Care Team Description 03/26/2015 Anesthesia Event [facility] Ailyn Recio, [place] ECOTHERAPIST ACCOUNTING RECONCILIATION CLERK [address] [place] [place], [place] [address] [address] [place] [address] [phone] (Wo rk) Anesthesia Record Procedure Summary Procedure [...] on filedocumented in this encounter Care Teams Coach Relationship Specialty Start Date End Date [facility] PCP - General 12/26/14 07/03/16 [address] [place] [address] documented as of this encounter
--- OUTSIDE RECORDS SUMMARY | 2022-09-07 12:03 | XMS_ITS | Encounter Summary ---
:1995 Author Organization [place] Address [facility] [place] [address] Care Team Providers Name Role Phone [facility] Primary Care Provider [phone] Reason for Visit Reason Comments [place] Toenail Encounter Details Date Type Department Care Team Description 06/18/2015 Office Visit [facility] David Breen t oenail Clinic Charline Coleman MD without infection [place] [address], [address] [place] [address] [place], [place] [phone] (Wo rk) [address] [phone] Social History Tobacco Use Types Packs/Day Years [...] ??C) (Oral) Wt 132 lb (59.875 kg) McK796% LMP (LMP Unknown) Estimated body mass index [...] nail documented in this encounter Care Teams Bark Scaler Relationship Specialty Start Date End Date [facility], [facility] PCP - General 12/26/14 07/03/16 [place] [address] documented as of this encounter
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
--- OUTSIDE RECORDS SUMMARY | 2022-09-07 12:03 | XMS_ITS | Encounter Summary ---
:1995 Author Organization [place] Address [address] [facility] [place] [address] Care Team Providers Name Role Phone [facility] Primary Care Provider [phone] Reason for Visit Reason Comments Rule out rupture of membranes Auth/Cert - Closed Specialty Diagnoses / Procedures Referred By Contact Refer red To Contact senior software analyst Diagnoses Indication for care in labor or delivery Active labor Spontaneous vaginal delivery Rh Procedures SECTION STANDBY [address] [place], [place] [address] Phone: Fax: Referral ID Status Reason Start Date Expiration Date Visits Requ ested Visits Authorized [id number] Closed 1 1 Encounter Details Date Type Department Care Team Description 03/24/2015 - Hospital Encounter [facility] Seymour Ko Sp ontaneous vaginal delivery (Primary Dx); 03/28/2015 [facility] Birthplace Anxiety; [address] [facility] [address] Hypertension [facility] [address] [address] [place] [address] [phone] Social History Tobacco Use Types Packs/Day Years [...] 19 year old who was admitted to ON LICENSE OF [facility] L/D at 37 weeks gestation [...] Ko MD - 03/27/2015 7:08 AM CDT [facility] Obstetrics Progress Note Subjective: This is the [...] Venegas MD - 03/26/2015 8:34 AM CDT [facility] Obstetrics Progress Note Subjective: This is the [...] They live together at [address] [facility] with Win's parents and brother. Twins Genesis Cervantes and Sade Shelley are their first children together and they are prepared for them at home. Joel is on WIC and has a PHN Jaswinder with [facility]. SW faxed referral to Jaswinder per Jole. Joel has a history of depression and [...] of the cord) Small hymenal tear repaired VCD=394 cc documented in this encounter H&P Notes [...] 1:24 PM CDT Pt to stay until [phone] Petit to due to blood [...] 7. Patient set up to start pushing. [employer] paged to come for delivery. 1710: [employer] here for delivery. 1715: Delivery of [...] EM#[id number] Name: JOEL ROBLERO MRN: [id number] Account: [id number] : 1995 Delivery Date: 03/24/2015 Document: [id number] Provider Notification - Brii Mota RN - [...] 12:38 PM CDT Data: Patient presented to [facility] at 1100. Reason for maternal/ assessment [...] Signature AST 29 0 - 35 U/L [facility] Specimen Anatomical Collection Method Collection Time Receive d Time (Source) Location / / Volume Laterality Blood specimen 03/28/2015 6:31 AM 015 7:07 (specimen) CDT AM CDT Seymour Ko MD LAB - BLOOD ORDERABLES Performing Organization Address City/[facility]/ZIP [facility] Phon e Number [facility] [address] [place], [place] [address] [phone] [place] [address] [phone] (ABNORMAL) Creatinine (03/27/2015 6:42 AM CDT) [facility] gist Method Time Signature Creatinine 0.46 (L) 0.50 - [place] 1.00 [facility] mg/dL [facility] GFR Estimate >90 >60 [place] Non GFR Calc mL/min/1. RIDGES 7m2 [facility] GFR Estimate >90 >60 [place] If Black GFR Calc mL/min/1. RIDG ES 7m2 HOSPITAL Specimen Anatomical Collection Method Collection Time Receive d Time (Source) Location / / Volume Laterality Blood specimen 03/27/2015 6:42 AM 015 6:59 (specimen) CDT AM CDT Yolande Venegas MD LAB - BLOOD ORDERABLES Performing Organization Address City/[facility]/ZIP Code Phon e Number [facility] [address] [place], [place] [address] [facility] [address] [place], [place] [address] [phone] (ABNORMAL) CBC with platelets (03/27/2015 6:42 AM CDT) Analysis Performed At Patho logist Time Signature WBC 12.6 (H) 4.0 - 11.0 [place] 10e9[facility] RBC Count 3.92 3.8 - 5.2 [place] 10e12/L [facility] Hemoglobin 13.1 11.7 - [place] 15.7 g/dL [facility] Hematocrit 38.2 35.0 - [place] 47.0 % [facility] MCV 97 78 - 100 [facility] MCH 33.4 (H) 26.5 - [place] 33.0 pg [facility] MCHC 34.3 31.5 - [place] 36.5 g/dL [facility] RDW 13.4 10.0 - [place] 15.0 % [facility] Platelet Count 209 150 - [address] Specimen Anatomical Collection Method Collection Time Receive d Time (Source) Location / / Volume Laterality Blood specimen 03/27/2015 6:42 AM 015 6:59 (specimen) CDT AM CDT Yolande Venegas MD LAB - BLOOD ORDERABLES Performing Organization Address City/State/ZIP Code Phon e Number [place] [address] [place], [place] [address] [facility] [address] [place], [place] [address] [phone] (ABNORMAL) ALT (03/27/2015 6:42 AM CDT) P athologist Signature ALT 74 (H) 0 - 50 U/L [facility] Specimen Anatomical Collection Method Collection Time Receive d Time (Source) Location / / Volume Laterality Blood specimen 03/27/2015 6:42 AM 015 6:59 (specimen) CDT AM CDT Yolande Venegas MD LAB - BLOOD ORDERABLES Performing Organization Address City/State/ZIP Code Phon e Number [facility] [address] [place], [place] [address] [facility] [address] [place], [place] [address] 7, [facility] [phone] (ABNORMAL) AST (03/27/2015 6:42 AM CDT) athologist Signature AST 60 (H) 0 - 35 U/L [facility] Specimen Anatomical Collection Method Collection Time Receive d Time (Source) Location / / Volume Laterality Blood specimen 03/27/2015 6:42 AM 015 6:59 (specimen) CDT AM CDT Yolande Venegas MD LAB - BLOOD ORDERABLES Performing Organization Address City/[facility]/ZIP Code Phon e Number [facility] [address] [place], [place] [address] [place] [address] [address] [place], [place] [address], [facility] [phone] Creatinine (03/26/2015 6:35 AM CDT) [facility] Method Time Signature Creatinine 0.56 0.50 - [place] 1.00 [facility] mg/dL [facility] GFR Estimate >90 >60 [place] Non GFR Calc mL/min/1. RIDGE 7m2 [facility] GFR Estimate >90 >60 [place] If Black GFR Calc mL/min/1. RIDG ES 7m2 [facility]OSPITAL Specimen Anatomical Collection Method Collection Time Receive d Time (Source) Location / / Volume Laterality 03/26/2015 6:35 AM 5 6:53 CDT AM CDT Estrella Hays PA-C LAB - BLOOD ORDERABLES Performing Organization Address City/State/ZIP Code Phon e Number [facility] [address] [place], [place] [address] [place] [address] [address] [place], [place] [address] 7, [facility] [phone] (ABNORMAL) AST (03/26/2015 6:35 AM CDT) athologist Signature AST 69 (H) 0 - 35 U/L [facility] Specimen Anatomical Collection Method Collection Time Receive d Time (Source) Location / / Volume Laterality 03/26/2015 6:35 AM 5 6:53 CDT AM CDT Estrella Hays PA-C LAB - BLOOD ORDERABLES Performing Organization Address City/State/ZIP Code Phon e Number [facility] [address] [place], [place] [address] [facility] [address] [place], [place] [address], [facility] [phone] ALT (03/26/2015 6:35 AM CDT) P athologist Signature ALT 47 0 - 50 U/L [facility] Specimen Anatomical Collection Method Collection Time Receive d Time (Source) Location / / Volume Laterality 03/26/2015 6:35 AM 5 6:53 CDT AM CDT Estrella Hays PA-C LAB - BLOOD ORDERABLES Performing Organization Address City/[facility] Phon e Number [facility] [address] [place], [place] [address] [place] [address] [address] [place], [place] [address] 7, [facility] [phone] (ABNORMAL) CBC with platelets (03/26/2015 6:35 AM CDT) Analysis Performed At Patho logist Time Signature WBC 15.0 (H) 4.0 - 11.0 [place] 10e9/L [facility] RBC Count 3.88 3.8 - 5.2 [place] 10e12/L [facility] Hemoglobin 13.1 11.7 - [place] 15.7 g/dL [facility] Hematocrit 38.7 35.0 - [place] 47.0 % [facility] MCV 100 78 - 100 [facility] MCH 33.8 (H) 26.5 - [facility] 33.0 pg [facility] MCHC 33.9 31.5 - [place] 36.5 g/dL [facility] RDW 13.4 10.0 - [place] 15.0 % [facility] Platelet Count 187 150 - 450 [place] 10e9L [facility] Specimen Anatomical Collection Method Collection Time Receive d Time (Source) Location / / Volume Laterality Blood specimen 03/26/2015 6:35 AM 015 6:53 (specimen) CDT AM CDT Estrella Hays PA-C LAB - BLOOD ORDERABLES Performing Organization Address City/State/ZIP Code Phon e Number [facility] [address] [place], [place] [address] [facility] [address] [place], [place] [address], [facility] [phone] Hemoglobin (03/25/2015 6:50 AM CDT) P athologist Signature Hemoglobin 12.9 11.7 - 15.7 [facility] g/dL [facility] Specimen Anatomical Collection Method Collection Time Receive d Time (Source) Location / / Volume Laterality Blood specimen 03/25/2015 6:50 AM 015 7:02 (specimen) CDT AM CDT Seymour Ko MD LAB - BLOOD ORDERABLES Performing Organization Address City/State/ZIP Code Phon e Number [facility] [address] [place], [place] [address] [place] [address] [address] [place], [place] [address], [facility] [phone] Creatinine (03/24/2015 8:52 PM CDT) [facility] Method Time Signature Creatinine 0.53 0.50 - [place] 1.00 [place] mg/dL [facility] GFR Estimate >90 >60 [place] Non GFR Calc mL/min/1. RIDGES 7m2 [facility] GFR Estimate >90 >60 [place] If Black GFR Calc mL/min/1. RIDG ES 7m2 [facility]OSPITAL Specimen Anatomical Collection Method Collection Time Receive d Time (Source) Location / / Volume Laterality Blood specimen 03/24/2015 8:52 PM 015 8:56 (specimen) CDT PM CDT Seymour Ko MD LAB - BLOOD ORDERABLES Performing Organization Address City/State/ZIP Code Phon e Number [facility] [address] [place], [place] [address] [facility] [address] [place], [place] [address], [facility] [phone] (ABNORMAL) Urea nitrogen (03/24/2015 8:52 PM CDT) athologist Signature Urea Nitrogen 5 (L) 7 - 19 [place] mg/dL [facility] Specimen Anatomical Collection Method Collection Time Receive d Time (Source) Location / / Volume Laterality Blood specimen 03/24/2015 8:52 PM 015 8:56 (specimen) CDT PM CDT Seymour Ko MD LAB - BLOOD ORDERABLES Performing Organization Address City/State/ZIP Code Phon e Number [facility] [address] [place], [place] [address] [facility] [address] [place], [place] [address], [facility] [phone] (ABNORMAL) Uric acid (03/24/2015 8:52 PM CDT) athologist Signature Uric Acid 5.4 (H) 2.1 - 5.0 [place] mg/[facility] Specimen Anatomical Collection Method Collection Time Receive d Time (Source) Location / / Volume Laterality Blood specimen 03/24/2015 8:52 PM 015 8:56 (specimen) CDT PM CDT Seymour Ko MD LAB - BLOOD ORDERABLES Performing Organization Address City/State/ZIP Code Phon e Number [facility] [address] [place], [place] [address] [facility] [address] [place], [place] [address], [facility] [phone] ALT (03/24/2015 8:52 PM CDT) athologist Signature ALT 16 0 - 50 U/L [facility] Specimen Anatomical Collection Method Collection Time Receive d Time (Source) Location / / Volume Laterality Blood specimen 03/24/2015 8:52 PM 015 8:56 (specimen) CDT PM CDT Seymour Ko MD LAB - BLOOD ORDERABLES Performing Organization Address City/State/ZIP [facility] Phon e Number [facility] [address] [place], [place] [address] [place] [address] [address] [place], [place] [address], [facility] [phone] AST (03/24/2015 8:52 PM CDT) P athologist Signature AST 28 0 - 35 U/L [facility] Specimen Anatomical Collection Method Collection Time Receive d Time (Source) Location / / Volume Laterality Blood specimen 03/24/2015 8:52 PM 015 8:56 (specimen) CDT PM CDT Seymour Ko MD LAB - BLOOD ORDERABLES Performing Organization Address [facility] Phon e Number [facility] [address] [place], [place] [address] [place] [address] [address] [place], [place] [address], [facility] [phone] (ABNORMAL) CBC with platelets (03/24/2015 8:52 PM CDT) Analysis Performed At Patho logist Time Signature WBC 24.7 (H) 4.0 - 11.[address] RBC Count 4.04 3.8 - 5.2 [place] 10e12[facility] Hemoglobin 13.6 11.7 - [place] 15.7 g/dL [facility] Hematocrit 39.0 35.0 - [place] 47.0 % [facility] MCV 97 78 - 100 [facility] MCH 33.7 (H) 26.5 - [place] 33.0 pg [facility] MCHC 34.9 31.5 - [place] 36.5 g/dL [facility] RDW 12.9 10.0 - [place] 15.0 % [facility] Platelet Count 191 150 - 450 [place] [address]e9[facility] Specimen Anatomical Collection Method Collection Time Receive d Time (Source) Location / / Volume Laterality Blood specimen 03/24/2015 8:52 PM 015 8:56 (specimen) CDT PM CDT Seymour Ko MD LAB - BLOOD ORDERABLES Performing Organization Address City/State/ZIP Code Phon e Number [facility] [address] [place], [place] [address] [facility] [address] [place], [place] [address] 7[facility] [phone] Placenta path order and indications (03/24/2015 6:29 PM CDT) Component Value Ref Test Analysis Performed At [facility] gist Range Method Time Signature Copath Report Patient Name: JOEL ROBLERO MR#: [id number] Specimen #: [id number] Collected: 03/24/2015 Received: 03/25/2015 Reported: 03/27/2015 12:38 [...] placental parenchyma is red-purple and spongy throughout. ??Public Address Announcer sections are submitted. Cassette 1-twin A's umbilical [...] MD 03/26/2015 11:59 AM) CPT Codes: A: 31423-XO7(2) TESTING LAB LOCATION: [address] ??[address] COLLECTION SITE: Client: [facility] Location: RH (R) Specimen Anatomical Collection Method Collection Time Receive d Time (Source) Location / / Volume Laterality Specimen from 03/24/2015 6:29 PM 03/25/20 15 7:59 placenta CDT AM CDT (specimen) Seymour Ko MD LAB - BEAKER AP Performing Organization Address City/[facility]/ZIP Code Phon e Number COPATH ABO/Rh type and screen (03/24/2015 11:56 AM CDT) [facility] Method Time Signature ABO A [facility] RH(D) Pos [facility] Antibody Neg [place] Screen [facility] Test Valid [facility] Only At [facility] Specimen 03/27/2015 [place] Expires [facility] Specimen Anatomical Collection Method Collection Time Receive d Time (Source) Location / / Volume Laterality 03/24/2015 11:56 03/24/2015 1:24 AM CDT PM CDT Seymour Ko MD LAB - BLOOD BANK TEST ORDER Performing Organization Address City/[facility] Phon e Number [place] [address] [address] [place] [address] [facility] [address] [place] [phone] (ABNORMAL) CBC with platelets differential (03/24/2015 11:56 AM CDT) [facility] Method Time Signature WBC 9.5 4.0 - [place] 11.0 [facility] 10e9/[facility] RBC Count 3.97 3.8 - 5.2 [place] 10e12/L [facility] Hemoglobin 13.2 11.7 - [place] 15.7 g/dL [facility] Hematocrit 38.8 35.0 - [place] 47.0 % [facility] MCV 98 78 - 100 [facility] MCH 33.2 (H) 26.5 - [place] 33.0 pg [facility] MCHC 34.0 31.5 - [place] 36.5 g/dL [facility] RDW 13.1 10.0 - [place] 15.0 % [facility] Platelet Count 176 150 - 450 [place] [address]e9/L [facility] Diff Method Automated [facility] % Neutrophils 69.9 % [facility] % Lymphocytes 18.8 % [facility] % Monocytes 9.4 % [facility] % Eosinophils 1.1 % [facility] % Basophils 0.2 % [facility] % Immature 0.6 % [place] Granulocytes [facility] Absolute 6.6 1.6 - 8.3 [place] Neutrophil 10e9/L [facility] Absolute 1.8 0.8 - 5.3 [place] Lymphocytes 10e9/L [facility] Absolute 0.9 0.0 - 1.3 [place] Monocytes 10e9/L [facility] Absolute 0.1 0.0 - 0.7 [place] Eosinophils 10e9/[facility] Absolute 0.0 0.0 - 0.2 [place] Basophils 10e9/[facility] Abs Immature 0.1 0 - 0.4 [place] Granulocytes [address] [place] [address] Specimen Anatomical Collection Method Collection Time Receive d Time (Source) Location / / Volume Laterality Blood specimen 03/24/2015 11:56 5 (specimen) AM CDT 12:06 PM CDT Seymour Ko MD LAB - BLOOD ORDERABLES Performing Organization Address City/[facility]/ZIP Code Phon e Number [place] [address] [address] [place], [place] [address] [place] [address] [address] [place] [address], [facility] [phone] (ABNORMAL) Rupture of membranes by Amnisure (03/24/2015 11:23 AM CDT) P athologist Signature [employer] Positive (A) NEG [facility] Specimen (Source) Anatomical Collection Method Collection Time Re ceived Time Location / / Volume Laterality Cervicovaginal 03/24/2015 11:23 5 Secretions AM CDT 11:33 AM CDT Seymour Ko MD LAB - BODY FLUIDS ORDERABLES Performing Organization Address City/[facility]/ZIP [facility] Phon e Number [facility] [address] [place], [place] [address] [place] [address] [address] [place], [place] [address], [facility] [phone] NON-STRESS TEST - HIM SCAN (03/24/2015 12:00 [...] RN)1226 (Given - Provider: Brii Sheriff, ERROL) Routine, 1 tablet, Oral, EVERY 8 HOURS [...] tablet 0900 (Not Given - Provider: Anne Mota, ERROL - Reason: Patient/family refused)2010 (Not Given - Provider: Naya Maharaj, ERROL - Reason: Patient/family refused) 0845 (Given - Provider: Brii Sheriff, ERORL)2018 (Given - Provider: Chasity Peres LPN) 0946 [...] Rodríguez )0845 (New Bag - Provider: Brii Sheriff, ERROL) at 75 mL/hr, Intravenous, CONTINUOUS, Re gulate [...] Sheriff, ERROL)1115 (New Bag - Provider: Brii Sheriff RN) 2 g/hr (50 mL/hr), Intravenous, CONTINUO US, Starting on Wed03/26/15 at 1215, Not for use beyond 5 days in pre-term labor. PRN Medication Order 03/26/2015 03/27/2015 03/28/2015 ibuprofen (ADVIL,MOTRIN) tablet 400-800 mg 0040 (Given - Provider: Merry Rodríguez)1355 (Given - Provider: Anne Mota RN)2005 (Given - Provider: Naya Maharaj, ERROL) 0308 [...] 1910 documented in this encounter Care Teams Golf Course Architect Relationship Specialty Start Date End Date [facility], [facility] PCP - General 12/26/14 07/03/16 [place] [address] documented as of this encounter
--- OUTSIDE RECORDS SUMMARY | 2022-09-07 12:03 | XMS_ITS | Encounter Summary ---
:1995 Author Organization [place] Address [address] [place] [address]. [place] [address] Care Team Providers Name Role Phone Daniel [facility] Primary Care Provider [phone] Reason for Referral Mental Health Outpatient - Closed Specialty Diagnoses / Procedures Referred By Contact Refer red To Contact Diagnoses Moderate episode of recurrent major depressive disorder (H) Kalin Suh MD [facility] [address] [facility] [place], [place] [address] [place] [address] Phone: Referral ID Status Reason Start Date Expiration Date Visits Requ ested Visits Authorized [id number] Closed 06/01/2016 06/01/2017 1 1 Reason for Visit Reason Comments Recheck Medication Encounter Details Date Type Department Care Team Description 06/01/[address] [facility] Kalin Suh MD Moderate episode of [facility] [place] [address] recurrent major [address] [place], [place] [address] (H) (Primary Dx) [address] Social History Tobacco [...] data found. No flowsheet data found. PHQ-9 Algerian PHQ-9 Any Language GAD7 ?? Amount of exercise or physical activity: None ?? Problems taking medications regularly: Yes, problems remembering to take ?? Medication side effects: none ?? Diet: regular (no restrictions) Problem list and histories reviewed & adjusted, as indicated. Additional history: as documented Patient Active Problem List Diagnosis ??? Migraine ??? Anxiety ??? Health Chcf ??? Pain in joint, pelvic region and [...] up in 1 week. Kalin Suh MD [facility] documented in this encounter Nursing Notes [...] Type Priority Associated Diagnoses Order S [facility] REFERRAL Referral Routine Moderate episode o f Ordered: 06/01/2016 recurrent major depressive disorder (H) documented as of this encounter Visit Diagnoses Diagnosis Moderate episode of recurrent major depr essive disorder (H) - Primary documented in this encounter Additional Health Concerns Assessment Noted Time PHQ-9 Depression Total Score: 18 06/03/2016 7:15 AM CD T documented as of this encounter Care Teams Test Fixture Assembler Relationship Specialty Start Date End Date [facility] PCP - General 12/26/14 07/03/16 [address] [place] [address] documented as of this encounter
--- OUTSIDE RECORDS SUMMARY | 2022-09-07 12:03 | XMS_ITS | Encounter Summary ---
:1995 Author Organization [place] Address [address] [place] [address]. [place] [address] Care Team Providers Name Role Phone Daniel [facility] Primary Care Provider [phone] Reason for Visit Reason Onset Date Comments Panel Management 06/19/2016 Encounter Details Date Type Department Care Team Description 06/19/2016 Telephone [facility] Bianca Suh MD Panel Management [address] [phone] Social History Tobacco Use Types Packs/Day Years [...] documented as of this encounter Care Teams Concrete Products Dispatcher Relationship Specialty Start Date End Date [facility], [facility] PCP - General 12/26/14 07/03/16 [address] [place] [address] documented as of this encounter
--- OUTSIDE RECORDS SUMMARY | 2022-09-07 12:04 | XMS_ITS | Encounter Summary ---
:1995 Author Organization [place] Address [facility] [place] [address] Care Team Providers Name Role Phone Unavailable Primary Care Provider Unavailable Reason for Visit Reason Onset Date Comments Care 08/20/2014 LMTCB Encounter Details Date Type Department Care Team Description 08/20/2014 Telephone [facility] David Pascal Care (LMTCB) Clinic Charline Coleman MD [address] [place] [address] [address] [place] [address] [place], [place] [phone] (Wo rk) [address] [phone] Social History Tobacco Use Types Packs/Day Years [...] for today at 3:15pm. Virginia Francois RN CAL ASSISTANT OB GYN documented in this encounter Plan of Treatment Not on filedocumented as of this encounter Visit Diagnoses Not on filedocumented in this encounter
--- OUTSIDE RECORDS SUMMARY | 2022-09-07 12:04 | XMS_ITS | Encounter Summary ---
:1996 Author Organization [place] Address [facility] [place] [address] Care Team Providers Name Role Phone Unavailable Primary Care Provider Unavailable Reason for Visit Reason Onset Date Comments Refill Request 05/16/2014 Sumatriptan 100mg Encounter Details Date Type Department Care Team Description 05/16/2014 Refill [facility] Bernardo Acosta Refill Request Clinic [place] JAGDISH Pena (Sumatriptan 100mg) [address] [place] [address] [place], [place] [phone] (Wo rk) [address] [phone] Social History Tobacco Use Types Packs/Day Years [...]
--- OUTSIDE RECORDS SUMMARY | 2022-09-07 12:04 | XMS_ITS | Encounter Summary ---
:1996 Author Organization [place] Address [address] [facility] [place] [address] Care Team Providers Name Role Phone [facility], [facility] Primary Care Provider [phone] Reason for Visit Reason Comments Rule Out Labor Encounter Details Date Type Department Care Team Description 03/11/2015 Hospital Encounter [facility] M[place] Petit In dication for [facility] Birthplace MD Abisai in labor or delivery [address] DITCH RIDER (Primary Dx) [place], [place] [facility] [address] [address] [facility] [phone] [address] [place] [address] Social History Tobacco Use Types [...] 03/11/2015 9:02 AM CD T Growth Chart: [facility] (Girls, 2-20 Years) documented in this encounter [...] Sig Dispensed Refills Start Date End Date Vit-Fe Take 1 tablet by 100 tablet 3 08/03/2014 Fumarate-FA ( mouth daily VITAMINS PLUS) 27-1 MG TABSIndications: Supervision of normal first , first trimester amoxicillin (AMOXIL) 500 Take 1 capsule (500 30 capsule 0 03/24/2015 MG capsuleIndications: mg) by mouth 3 times Acute sinusitis with daily symptoms > 10 days CITALOPRAM HYDROBROMIDE Take 20 mg by mouth 0 03/24/2015 POIndications: daily Depression, Prescribed by doctor at her college fluticasone (FLONASE) [address] [place] 1-2 sprays 1 Package 1 11/1603/24/2015 MCG/ACT [...] as of this encounter Progress Notes Ashwini Bianchi, ERROL - 03/11/2015 11:34 AM CDT Data: Patient [...] with an update. Provider Notification - Ashwini Binachi RN - 03/11/2015 9:17 AM CDT 03/11/15 [...] Active and Recently Administered Medications Care Teams Linen Checker Relationship Specialty Start Date End Date [facility], [facility] PCP - General 12/26/14 07/03/16 VACCINE CUSTOMER REPRESENTATIVE [place] [address] documented as of this encounter
--- OUTSIDE RECORDS SUMMARY | 2022-09-07 12:04 | XMS_ITS | Encounter Summary ---
:1995 Author Organization [place] Address [address] [facility] [place] [address] Care Team Providers Name Role Phone Unavailable Primary Care Provider Unavailable Reason for Visit Reason Comments Abnormal Bleeding Problem had period week ago and star lainey again. Had depo last august but didnt get next shot for Nov and bled for 8 months Health Maintenance lamydia screening due Encounter Details Date Type Department Care Team Description 03/12/2014 [facility] for unspecified chlamydial disease (Primary Dx); Clinic [place] JAGDISH Pena Contraception; [place] [address] [address] Irregular menstrual cycle; Road, [address] [place] [address] Migraine without aura, without mention o f intractable migraine without mention of status migrainosus; [place], [place] [phone] (Wo rk) [place] [address] [phone] Social History Tobacco Use Types Packs/Day Years [...] 03/12/2014 11:01 AM C DT Growth Chart: [facility] (Girls, 2-20 Years) documented in this encounter [...] BOB's. Mother gets them also. Right sided, confucianism. Nausea, throbbing. No vomiting. Photophobia. advil is [...] in the near future. Bernardo Avelar PA-C [facility] documented in this encounter Miscellaneous [...] WBC 7.1 4.0 - 11.0 [facility] 10e9/L [facility] RBC Count 4.46 3.7 - 5.3 [facility] 10e12/L [facility] Hemoglobin 14.7 11.7 - [facility] 15.7 g/dL [facility] Hematocrit 41.7 35.0 - [facility] 47.0 % [facility] MCV 94 77 - 100 [place] fl [facility] MCH 33.0 26.5 - [facility] 33.0 pg [facility] MCHC 35.3 31.5 - [facility] 36.5 g/dL [facility] RDW 11.8 10.0 - [facility] 15.0 % [facility] Platelet Count 290 150 - 450 [place] 10e9/L [facility] Specimen Anatomical Collection Method Collection Time Receive d Time (Source) Location / / Volume Laterality Blood specimen 03/12/2014 11:38 4 (specimen) AM CDT 11:39 AM CDT Bernardo Acosta PA-C LAB - BLOOD ORDERABLES Performing Organization Address [facility]/ZIP Code Phon e Number [facility] [place] [address] HCG qualitative urine (03/12/2014 11:37 AM CDT) Analysis Performed At Patho logist Time Signature HCG Qual Urine Negative NEG [facility] Specimen Anatomical Collection Method Collection Time Receive d Time (Source) Location / / Volume Laterality Urine specimen 03/12/2014 11:37 201 4 (specimen) AM CDT 11:38 AM CDT Bernardo Acosta PA-C LAB - URINE ORDERABLES Performing Organization Address [facility]/ZIP Code Phon e Number [facility] [place] [address] CHLAMYDIA TRACHOMATIS PCR (03/12/2014 11:36 AM CDT) Component Value Ref Test Analysis Performed At Patholo gist Range Method Time Signature Specimen Urine [facility] Chlamydia Negative NEG [facility] Trachomatis Negative for C. trachomatis rRNA by weaving instructor mediated amplification. MICROBIOLOGY PCR A negative result [...] MICRO GENERAL ORDERABL ES Performing Organization Address City/[facility]/ZIP Code Phon e Number [address] [address] [facility] [place] [address] [facility] MICROBIOLOGY NEISSERIA GONORRHOEA PCR (03/12/2014 11:36 AM CDT) Component Value Ref Test Analysis Performed At Patholo gist Range Method Time Signature Specimen Urine [facility] N Gonorrhea Negative NEG [facility] PCR Negative [...] Organization Address City/State/ZIP Code Phon e Number [id number] [place] [address] [facility] MICROBIOLOGY documented in this encounter Visit Diagnoses [...]
--- OUTSIDE RECORDS SUMMARY | 2022-09-07 12:04 | XMS_ITS | Encounter Summary ---
:1995 Author Organization [place] Address [address] [place] [address] Care Team Providers Name Role Phone [facility] Primary Care Provider [phone] Encounter Details Date Type Department Care Team Description 03/08/2015 Medical Correspondence [facility], [facility], [facility] [place] Provider Plan of Care [place] [address] [place] [address] Social History Tobacco Use Types [...] on filedocumented in this encounter Care Teams Operations Expert Relationship Specialty Start Date End Date [facility] PCP - General 12/26/14 07/03/16 RESPIRATORY SUPERVISOR [place]B [place], [place] [id number] documented as of this encounter
--- OUTSIDE RECORDS SUMMARY | 2022-09-07 12:04 | XMS_ITS | Encounter Summary ---
:1996 Author Organization [place] Address [address] [place] [address] Care Team Providers Name Role Phone Unavailable Primary Care Provider Unavailable Reason for Visit Reason Comments OB Education OB Confirmation Encounter Details Date Type Department Care Team Description 08/03/2014 Office [facility] Absence of menstruation (Primary Dx); Visit Clinic [place] Supervision of normal first , first trimester [facility], [address] [place] [address] Social History Tobacco Use Types [...] still in highschool, does not have a driver guard's license and no phone, she reports that [...] Term Labor Risk Assessment Virginia Francois RN PLE WORKER documented in this encounter Plan of Treatment Not on filedocumented as of this encounter Procedures Procedure Name Priority Date/Time Associated Diagnosis Comme nts BETA HCG QUALITATIVE Routine 08/03/2014 1:45 PM Absence Of R esults for this IFA URINE CDT Menstruation procedure are i n the results section. documented in this encounter Results (ABNORMAL) Beta HCG qual IFA urine (08/03/2014 1:45 PM CDT) [facility] Method Time Signature Beta HCG Qual Positive (A) NEG [facility] Urine [facility] Specimen Anatomical Collection Method Collection Time Receive d Time (Source) Location / / Volume Laterality Urine specimen 08/03/2014 1:45 PM 014 1:46 (specimen) CDT PM CDT Bernardo Acosta PA-C LAB - URINE ORDERABLES Performing Organization Address City/State/ZIP Code Phon e Number [facility] [place] [address] documented in this encounter Visit Diagnoses Diagnosis Absence of menstruation - Primary Supervision of normal first , f irst trimester documented in this encounter
--- OUTSIDE RECORDS SUMMARY | 2022-09-07 12:04 | XMS_ITS | Encounter Summary ---
:1996 Author Organization [place] Address [address] [facility] [place] [address] Care Team Providers Name Role Phone Clinic, [facility] Primary Care Provider Reason for Visit Reason Comments Betamethasone Injection Encounter Details Date Type Department Care Team Description 02/18/2015 - Hospital Encounter [facility] Maria Victoria Robles MD [address] [place], [place] [address] labor in 02/20/2015 [facility]place Yolande Venegas MD [address] [place], [place] [address] third trimester with [address] Radha Galeas MD [address] [place], [place] [address] delivery, [place], [place] fetus 2 (Prim jeff Dx) [address] [...] 02/18/2015 4:48 PM CD T Growth Chart: [facility] (Girls, 2-20 Years) documented in this encounter [...] (see handout) Call your doctor or nurse insurance administrative assistant if your baby is moving less than [...] cannot be sent through Care Everywhere.KICK COUNTS (UZBEK)documented in this encounter Medications at Time of [...] POIndications: daily Depression, Prescribed by doctor at [facility] fluticasone (FLONASE) 50 [place] 1-2 sprays 1 Package 1 11/1603/24/2015 MCG/ACT [...] reflex to Culture (02/18/2015 4:00 PM CDT) [facility] Method Time Signature Color Urine Light Yellow [facility] Appearance Urine Clear [facility] Glucose Urine Negative NEG mg/dL [facility] Bilirubin Urine Negative NEG [facility] Ketones Urine Negative NEG mg/dL [facility] Specific [place] 1.010 1.003 - [place] Urine 1.035 [facility] Blood Urine Negative NEG [facility] pH Urine 6.0 5.0 - 7.0 [place] pH [facility] Protein Albumin Negative NEG mg/dL [facility] Urobilinogen Normal 0.0 - 2.0 [place] mg/dL mg/dL [facility] Nitrite Urine Negative NEG [facility] Leukocyte Trace (A) NEG [place] Esterase Urine [facility] Source Midstream [facility] WBC Urine 2 0 - 2 [place] /HPF [facility] RBC Urine <1 0 - 2 [facility]HPF [facility] Bacteria Urine Few (A) NEG /HPF [facility] Squamous 2 (H) 0 - 1 [place] Epithelial /HPF /HPF [facility] Mucous Urine Present (A) NEG /LPF [facility] Specimen Anatomical Collection Method Collection Time Receive d Time (Source) Location / / Volume Laterality Urine specimen URINE SPECIMEN 02/18/2015 4:00 PM 02/18 4:27 (specimen) OBTAINED BY CLEAN CDT PM CDT CATCH PROCEDURE / Unknown Maria Victoria Robles MD LAB - URINE ORDERABLES Performing Organization Address City/State/ZIP Code Phon e Number M [facility] [address] [place], [place] [address] [facility] [address] [place], [place] [address], [facility] [phone] NON-STRESS TEST - HIM SCAN (02/18/2015 12:00 AM CDT) Specimen (Source) Anatomical Location Collection Method / Collectio n Time Received Time / Laterality Volume 02/18/2015 Narrative This result has an attachment that is no t available. Provider Scan PROCEDURES Rubella Antibody IgG Quantitative (09/17/2014) Analysis Performed At [facility] Signature Rubella JOLEEN non-immune IgG Specimen (Source) Anatomical Location Collection Method / Collectio n Time Received Time / Laterality Volume Blood specimen (specimen) Patient Reported LAB - BLOOD ORDERABLES HIV Antigen Antibody Combo (09/17/2014) Analysis Performed At [facility] Signature HIV Antigen non-reacti Antibody Combo [...] ORDERABLES Anti Treponema (09/17/2014) Analysis Performed At [facility] Signature Treponema non-reacti pallidum ve Antibody [...] mmHg. documented in this encounter Care Teams Whitewasher Relationship Specialty Start Date End Date [facility], [facility] PCP - General 12/26/14 07/03/16 [address] [place] [address] documented as of this encounter
--- OUTSIDE RECORDS SUMMARY | 2022-09-07 12:04 | XMS_ITS | Encounter Summary ---
:1996 Author Organization [place] Address [address] [facility] [place] [address] Care Team Providers Name Role Phone [facility], [facility] Primary Care Provider [phone] Reason for Visit Reason Comments Non Stress Test twins Encounter Details Date Type Department Care Team Description 03/06/2015 Hospital Encounter [facility] Maria Victoria Robles MD Birthplace [address] [place] [address] [phone] Social History Tobacco Use Types Packs/Day Years [...] 03/06/2015 4:32 PM CD T Growth Chart: [facility] (Girls, 2-20 Years) documented in this encounter Discharge Instructions Discharge InstructionsShani Omalley RN - 03/06/2015 4:59 PM CDT Discharge Instruction for Undelivered Patients You were seen for: Assessment We Consulted: Dr Monreal You had (Test or Medicine): NST's for your twins Diet: Resume normal diet Activity: Call your doctor or nurse thread winder if your baby is moving less than [...] doctor at her college fluticasone (FLONASE) 50 [place] 1-2 sprays 1 Package 1 11/1603/24/2015 MCG/ACT [...] patient documented in this encounter Care Teams Welt Cutter Relationship Specialty Start Date End Date Clinic, [facility] PCP - General 12/26/14 07/03/16 [place] [address] documented as of this encounter
--- OUTSIDE RECORDS SUMMARY | 2022-09-07 12:04 | XMS_ITS | Encounter Summary ---
:1996 Author Organization [place] Address Replaced by [facility] [place] [address] Care Team Providers Name Role Phone Unavailable Primary Care Provider Unavailable Reason for Visit Reason Onset Date Comments Refill Request 07/11/2014 Citalopram 10mg Encounter Details Date Type Department Care Team Description 07/11/2014 Refill [facility] Bernardo Acosta Refill Request Clinic [place] JAGDISH Pena (Citalopram 10mg) [address] [place] [address] [place], [place] [phone] (Wo rk) [address] [phone] Social History Tobacco Use Types Packs/Day Years [...]
--- OUTSIDE RECORDS SUMMARY | 2022-09-07 12:04 | XMS_ITS | Encounter Summary ---
:1996 Author Organization [place] Address [facility] [place] [address] Care Team Providers Name Role Phone Unavailable Primary Care Provider Unavailable Reason for Visit Reason Comments Care meet and greet, few question s about and medications, nausea, Encounter Details Date Type Department Care Team Description 08/20/2014 [facility] Charline Coleman MD normal first [address] [place] [address] [place] , [facility] [address] trimester (Primary [place], [place] Dx) [address] [id number] Social History Tobacco Use Types Packs/Day Years [...] Comments Blood Pressure 110/60 08/20/2014 3:19 PM GIS ANALYST Pulse 76 08/20/2014 3:19 PM GIS ANALYST Temperature 36.6 ??C (97.8 ??F) 08/20/2014 3:19 PM GIS ANALYST Respiratory Rate 16 08/20/2014 3:19 PM GIS ANALYST Oxygen Saturation - - Inhaled Oxygen Concentration - - Weight 54 kg (119 lb) 08/20/2014 3:19 PM GIS ANALYST Height - - Body Mass Index 20.43 08/03/2014 1:53 PM CDT Body Mass Index Percentile 37.82 % 08/20/2014 3:19 PM CS T Growth Chart: [facility] (Girls, 2-20 Years) documented in this encounter [...] first official RTC in David Breen MD ANALYST documented in this encounter Nursing Notes Annemarie [...] using cuff size: regular Annemarie Chiu MA ANALYST documented in this encounter Plan of Treatment Not on filedocumented as of this encounter Visit Diagnoses Diagnosis Supervision of normal first , f irst trimester - Primary documented in this encounter
--- OUTSIDE RECORDS SUMMARY | 2022-09-07 12:04 | XMS_ITS | Encounter Summary ---
:1995 Author Organization [place] Address [address] [facility] [place] [address] Care Team Providers Name Role Phone [facility], [facility] Primary Care Provider [phone] Reason for Visit [facility] Physical Therapy (Routine) - Closed Specialty Diagnoses / Procedures Referred By Contact Refer red To Contact Maria Victoria Robles MD [facility] [address] [facility] [address] [place] [address] [address] [place] [address] Phone: Fax: Referral ID Status Reason Start Date Expiration Date Visits V isits Requested Authorized GISELA/UCARE/HIP/ Closed 01/16/2015 03/10/2015 2 2 [id number] Encounter Details Date Type Department Care Team Description 01/16/2015 Therapy Visit [facility] Zelda Dowell, Pain in joint, Rehabilitation Services PT pelvic region and [place] [facility] [address], left ([place] [address] Dx) [address] [phone] [address] (Work) [place] [address] Social History Tobacco Use Types [...] reported. Medication history: vitamins. Current occupation is [employer]. Patient is working in normal job without [...] Bend: Left: Right: Rotation: Left: Right: Side [place]: Left: Right: Lumbar Myotomes: normal Lumbar DTR's: [...] Sheet for this information) Short term and care home goals: (See Goal Flow Sheet for this [...] Name Priority Date/Time Associated Diagnosis Comme nts [facility] MANUAL THER Routine 01/16/2015 8:54 AM Pain in joint, pelv ic TECH,1+REGIONS,EA 15 MIN CDT region and thigh , left [facility] THERAPEUTIC Routine 01/16/2015 8:54 AM Pain in joint, pelv ic EXERCISES CDT region and thigh, left documented in this encounter Visit Diagnoses Diagnosis Pain in joint, pelvic region and thigh, left - Primary documented in this encounter Care Teams Lang Interpreter Relationship Specialty Start Date End Date [facility], [facility] PCP - General 12/26/14 07/03/16 [address] [place] [address] documented as of this encounter
--- OUTSIDE RECORDS SUMMARY | 2022-09-07 12:04 | XMS_ITS | Encounter Summary ---
:1996 Author Organization [place] Address [facility] [place] [address] Care Team Providers Name Role Phone Unavailable Primary Care Provider Unavailable Reason for Visit Reason Onset Date Comments Refill Request 04/17/2014 Microgestin FE 1.5-3 0 Encounter Details Date Type Department Care Team Description 04/17/2014 Refill [facility] Bernardo Acosta Refill Request Clinic [place] JAGDISH Pena (Microgestin FE 1.5-30) [address] [place] [address] [place], [place] [phone] (Wo rk) [address] [phone] Social History Tobacco Use Types Packs/Day Years [...]
--- OUTSIDE RECORDS SUMMARY | 2022-09-07 12:04 | XMS_ITS | Encounter Summary ---
:1995 Author Organization [place] Address [address] [facility] [place] [address] Care Team Providers Name Role Phone [facility] Primary Care Provider [phone] Encounter Details Date Type Department Care Team Description 12/26/2014 Hospital Encounter [facility] Maria Victoria Robles MD Right leg pain [facility] [address] [facility] [address] [address] [place], [place] [address] [address] [place], [place] (Work) [address] [phone] Social History Tobacco Use Types Packs/Day Years [...] Supervision of normal first , first trimester CITALOPRAM HYDROBROMIDE Take 20 mg by mouth 0 03/24/2015 POIndications: daily Depression, Prescribed by doctor at her [facility] fluticasone (FLONASE) 50 [place] 1-2 sprays 1 Package 1 11/1603/24/2015 MCG/ACT nasal into both nostrils sprayIndications: URI daily (upper respiratory infection) Vit-Fe Take 1 tablet by 0 12/07/2014 [...] Priority Date/Time Associated Diagnosis Comme nts US LOWER EXTREMITY STAT 12/26/2014 10:04 AM Right leg pain Results for this VENOUS DUPLEX LEFT CDT procedure are in the results section. documented in this encounter Results US Lower Extremity Venous Duplex Left (12/26/2014 10:04 AM CDT) Anatomical Region Laterality Modality Vascular, Thigh, Leg Ultrasound Specimen (Source) Anatomical Location Collection Method / Collectio n Time Received Time / Laterality Volume Impressions 12/26/2014 10:08 AM CDT IMPRESSION: Normal left lower extremity venous Doppler. GILMA DC MD Narrative 12/26/2014 10:08 AM CDT LEFT LOWER EXTREMITY VENOUS DOPPLER 12/26/2014 10:04 AM HISTORY: Pain. Patient is 25 weeks pregn ant. COMPARISON: None. TECHNIQUE: Color flow and spectral Doppl er with waveform analysis performed. FINDINGS: Left common femoral, superfici al femoral, and popliteal veins are well seen and appear normal. T hey have normal patency and compressibility. Deep veins of the calf are well seen and appear normal. No evidence for deep venous thro mbosis. Procedure Note Gilma Dc MD - 12/26/2014F ormatting of this note might be different from the original. LEFT LOWER EXTREMITY VENOUS DOPPLER 12/26 10:04 AM HISTORY: Pain. Patient is 25 weeks pregn ant. COMPARISON: None. TECHNIQUE: Color flow and spectral Doppl er with waveform analysis performed. FINDINGS: Left common femoral, superfici al femoral, and popliteal veins are well seen and appear normal. T hey have normal patency and compressibility. Deep veins of the calf are well seen and appear normal. No evidence for deep venous thro mbosis. IMPRESSION IMPRESSION: Normal left lower extremity venous Doppler. GILMA DC MD Maria Victoria Robles MD IMG US ORDERABLES documented in this encounter Visit Diagnoses Diagnosis Right leg pain Pain in limb documented in this encounter Care Teams Cloth Calender Relationship Specialty Start Date End Date [facility], [facility] PCP - General 12/26/14 07/03/[address] [place] [address] documented as of this encounter
--- OUTSIDE RECORDS SUMMARY | 2022-09-07 12:04 | XMS_ITS | Encounter Summary ---
:1995 Author Organization [place] Address Formerly [facility] [place] [address] Care Team Providers Name Role Phone Unavailable Primary Care Provider Unavailable Reason for Visit Reason Comments URI Encounter Details Date Type Department Care Team Description 11/16/2014 Office Visit [facility] David Breen (uppe r Clinic [place] MD Jared respiratory [address] [place] [address] infection) ([facility], [address] [place] [address] Dx) [place], [place] [phone] (Wo rk) [address] [phone] Social History Tobacco Use Types Packs/Day Years [...] Comments Blood Pressure 116/62 11/16/2014 2:28 PM ACID PURIFIER Pulse 101 11/16/2014 2:28 PM ACID PURIFIER Temperature 36.9 ??C (98.4 ??F) 11/16/2014 2:28 PM ACID PURIFIER Respiratory Rate - - Oxygen Saturation 97% 11/16/2014 2:28 PM ACID PURIFIER Inhaled Oxygen Concentration - - Weight 58.5 kg (129 lb) 11/16/2014 2:28 PM ACID PURIFIER Height - - Body Mass Index 22.14 08/03/2014 1:53 PM CDT Body Mass Index Percentile 58.67 % 11/16/2014 2:28 PM CS T Growth Chart: [facility] (Girls, 2-20 Years) documented in this encounter [...] spray RTC in 1w David Breen MD PURIFIER documented in this encounter Nursing Notes Annetta [...] completed using cuff size: kemi Lemus CMA PURIFIER documented in this encounter Plan of Treatment Not on filedocumented as of this encounter Visit Diagnoses Diagnosis URI (upper respiratory infection) - Prim jeff Acute upper respiratory infections of un specified site documented in this encounter
--- OUTSIDE RECORDS SUMMARY | 2022-09-07 12:04 | XMS_ITS | Encounter Summary ---
:1995 Author Organization [place] Address [facility]ly [facility] [place] [address] Care Team Providers Name Role Phone [facility] Primary Care Provider [phone] Reason for Visit Reason Comments Nasal Congestion Encounter Details Date Type Department Care Team Description 01/23/[address] [facility] Bernardo Acosta Acute sinusitis with symptoms > 10 days (Primary Dx); Clinic [place] JAGDISH Pena Anxiety [place] [address] [facility], [address] [place] [address] [place], [place] [phone] (Wo rk) [address] [phone] Social History Tobacco Use Types Packs/Day Years [...] Sign Reading Time Taken Comments Blood Pressure 122/64 01/23/2015 10:02 AM CDT Pulse 84 01/23/2015 10:02 AM CDT Temperature 36.8 ??C (98.3 ??F) 01/23/2015 10:02 AM CDT Respiratory Rate 20 01/23/2015 10:02 AM CDT Oxygen Saturation - - Inhaled Oxygen Concentration - - Weight 68 kg (150 lb) 01/23/2015 10:02 AM CDT Height - - Body Mass Index 25.75 08/03/2014 1:53 PM CDT Body Mass Index Percentile 84.21 % 01/23/2015 10:02 AM C DT Growth Chart: [facility] (Girls, 2-20 Years) documented in this encounter Progress Notes Bernardo Acosta PA-C - 01/23/2015 9:04 AM CDT HPI SUBJECTIVE: Joel Amos is a 19 year old female who presents to clinic today for the following health issues: RESPIRATORY SYMPTOMS ?? Duration: 2.5 wks ?? Description nasal congestion, rhinorrhea, sore throat, facial pain/pressure, cough, ear pain right, headache, fatigue/malaise, hoarse voice and nausea ?? Severity: moderate ?? Accompanying signs and symptoms: family with same symptoms, all Dx with sinus infections ?? History (predisposing factors): ?? Precipitating or alleviating factors: None ?? Therapies tried and outcome: none Taking only occasional Tylenol prn. PROBLEMS TO ADD ON... Anxiety- questions about med ?? Status since last visit: No change- still anxiety- stopped Celexa due to , did not want to take anything. ?? Other associated symptoms:None ?? Complicating factors: Significant life event: Yes- Current substance abuse: None Depression symptoms: No No flowsheet data found. GAD7 Problem list and histories reviewed & adjusted, as indicated. Additional history: as documented Problem list, Medication list, Allergies, and Medical/Social/Surgical histories reviewed in [facility] andupdated as appropriate. ROS: Constitutional, HEENT, cardiovascular, pulmonary, gi and gu systems are negative, except as otherwise noted. OBJECTIVE: BP 122/64 Pulse 84 Temp(Src) 98.3 ??F (36.8 ??C) (Oral) Resp 20 Wt 150 lb (68.04 kg) ? No Body mass index is 25.73 kg/(m^2). GENERAL: healthy, alert and no distress HENT: normal cephalic/atraumatic, ear canals and TM's normal, nose and mouth without ulcers or lesions, nasal mucosa edematous , oropharynx clear, oral mucous membranes moist and sinuses: maxillary tenderness on both sides NECK: no adenopathy, no asymmetry, masses, or scars and thyroid normal to palpation RESP: lungs clear to auscultation - no rales, rhonchi or wheezes CV: regular rate and rhythm, normal S1 S2, no S3 or S4, no murmur, click or rub, no peripheral edemaand peripheral pulses strong SKIN: no suspicious lesions or rashes PSYCH: mentation appears normal, affect normal/bright Diagnostic Test Results: none ASSESSMENT/PLAN: Problem List Items Addressed This Visit None Visit Diagnoses Acute sinusitis with symptoms > 10 days - Primary Relevant Medications amoxicillin (AMOXIL) capsule (461.9) Acute sinusitis with symptoms > 10 days (primary encounter diagnosis) Comment: heat to sinuses, tylenol. Follow up prn. Plan: amoxicillin (AMOXIL) 500 MG capsule (300.00) Anxiety Comment: Plan: discussed that zoloft will be OK while nursing if she chooses to do so. Watch for post sx after delivery. If she feels like she needs to address anxiety before delivery to follow up sooner. Bernardo Acosta PA-C [facility] Physical Exam documented in this encounter Nursing Notes Annemarie Chiu MA - 01/23/2015 10:05 AM CDT Chief Complaint Patient presents with ??? Nasal Congestion Initial BP 122/64 Pulse 84 Temp(Src) 98.3 ??F (36.8 ??C) (Oral) Resp 20 Wt 150 lb (68.04 kg) ? No Estimated body mass index is 25.73 kg/(m^2) as calculated from the following: Height as of 14: 5' 4 (1.626 m). Weight as of this encounter: 150 lb (68.04 kg). BP completed using cuff size: regular Annemarie Chiu MA documented in this encounter Plan of Treatment Not on filedocumented as of this encounter Visit Diagnoses Diagnosis Acute sinusitis with symptoms > 10 days - Primary Acute sinusitis, unspecified Anxiety Anxiety state, unspecified documented in this encounter Care Teams Mastic Worker Relationship Specialty Start Date End Date Clinic, [facility] PCP - General 12/26/14 07/03/16 [place] [address] documented as of this encounter
--- OUTSIDE RECORDS SUMMARY | 2022-09-07 12:04 | XMS_ITS | Encounter Summary ---
:1995 Author Organization [place] Address [address] [facility] [place] [address] Care Team Providers Name Role Phone Unavailable Primary Care Provider Unavailable Reason for Visit (Routine) - Closed Specialty Diagnoses / Procedures Referred By Contact Refer red To Contact Radiology / Diagnoses EPIC, approx 8 weeks Rh Ultrasound Rscc Radiology. Procedures US OB <14 WKS W TRANSVAG [place] [address] [place] [address] Phone: Fax: Referral ID Status Reason Start Date Expiration Date Visits Requ ested Visits Authorized [id number] Closed 08/17/2014 08/17/2015 1 1 Encounter Details Date Type Department Care Team Description 08/22/2014 Hospital Encounter [facility] David Breen [facility] ervision of [facility] Specialty MD Jared [facility] Imaging [address] , first [address] [place] [address] Social History Tobacco Use [...] daily Depression, Prescribed by doctor at her [facility] SUMAtriptan (IMITREX) Take 1 tablet (100 9 [...] Result s for this COMPLETE W TRANSVAG INSTRUMENTAL TEACHER normal first procedur e are in MULTIPLE , first the results trimester section. documented in this encounter Results US OB 1St Trimester Multiple w Transvag (08/22/2014 3:31 PM INSTRUMENTAL TEACHER) Anatomical Region Laterality Modality Abdomen/Pelvis Ultrasound Specimen (Source) Anatomical Location Collection Method / Collectio n Time Received Time / Laterality Volume Impressions 08/24/2014 8:53 AM INSTRUMENTAL TEACHER IMPRESSION: Twin live intrauterine measuring 6 weeks 3 days-6 weeks 4 days gestational age. KEVYN HARRIS MD Narrative 08/24/2014 8:53 AM INSTRUMENTAL TEACHER ULTRASOUND OBSTETRIC LESS THAN FOURTEEN WEEKS [...] of delivery based on this ultrasound: 04/14/2015. College-rump length: 0.6 cm. Embryonic cardiac activity: 128 bpm. Yolk sac: Present. Subchorionic hemorrhage: None. Twin B: Estimated gestational age by current ult rasound measurement: 6 weeks 4 days. Estimated date of delivery based on this ultrasound: 04/13/2015. College-rump length: 0.7 cm. Embryonic cardiac activity: 130 [...] of delivery based on this ultrasound: 04/14/2015. College-rump length: 0.6 cm. Embryonic cardiac activity: 128 bpm. Yolk sac: Present. Subchorionic hemorrhage: None. Twin B: Estimated gestational age by current ult rasound measurement: 6 weeks 4 days. Estimated date of delivery based on this ultrasound: 04/13/2015. College-rump length: 0.7 cm. Embryonic cardiac activity: 130 [...]
--- OUTSIDE RECORDS SUMMARY | 2022-09-07 12:04 | XMS_ITS | Encounter Summary ---
:1995 Author Organization [place] Address [address] [place] [address]. [place] [address] Care Team Providers Name Role Phone Unavailable Primary Care Provider Unavailable Reason for Visit Reason Comments Clinic Care Coordination - Initial Encounter Details Date Type Department Care Team Description 09/04/[address] [facility] Care Coordination MD Jared Coordination - [address] [place] [address] [facility] ( ) [place] [address] [id number] Social History Tobacco Use Types Packs/Day Years [...] necessary at this time. JESSE Hanna Care Coordination-socially responsible investment adviser [phone] AND [employer]INE F[employer]ER [employer] documented in this encounter Plan of Treatment Not on filedocumented as of this encounter Visit Diagnoses Diagnosis Health Jail - Primary notesas part of the Health Jail wor [facility] to capture care coordination pl documented in this encounter
--- OUTSIDE RECORDS SUMMARY | 2022-09-07 12:04 | XMS_ITS | Encounter Summary ---
:1995 Author Organization [place] Address [address] [facility] [place] [address] Care Team Providers Name Role Phone Unavailable Primary Care Provider Unavailable Reason for Referral Care Coordination - Closed Specialty Diagnoses / Procedures Referred By Contact Refer red To Contact Diagnoses [place] [address] [place] [address] Referral ID Status Reason Start Date Expiration Date Visits Requ ested Visits Authorized [id number] Closed 08/06/2014 02/02/2015 1 1 Reason for Visit Reason Onset Date Comments Care 08/03/2014 Questions Encounter Details Date Type Department Care Team Description 08/03/2014 Telephone [facility] Charline Coleman MD (Questions) [facility], [address] [facility] [address] [place] [address] [place], [place] [phone] (Wo rk) [address] [phone] Social History Tobacco Use Types Packs/Day Years [...] mantoux recheck. Left my direct number of [phone] to call back with any questions. Virginia Francois RN Telephone Encounter - Virginia Francois RN - 08/06/2014 10:[address] rBeen- I spoke with Lita Perkins and she [...] Rx'd by a doctor she sees at [facility]. Recently increased to 20mg QD, feels [...] coordination? Lastly, patient received a letter from [facility] in June 2014 that she has been [...]
--- OUTSIDE RECORDS SUMMARY | 2022-09-07 12:04 | XMS_ITS | Encounter Summary ---
:1995 Author Organization [place] Address [facility] [place] [address] Care Team Providers Name Role Phone Unavailable Primary Care Provider Unavailable Reason for Visit Reason Onset Date Comments Refill Request 06/21/2014 Sumatriptan 100mg Encounter Details Date Type Department Care Team Description [facility] [place] JAGDISH Pena (Sumatriptan 100mg) [address] [place] [address] [address] [place] [address] [place], [place] [phone] (Wo rk) [address] [phone] Social History Tobacco Use Types Packs/Day Years [...] OCP's andphysical. Please call and discuss. Thanks. [facility]. Telephone Encounter - Melina Borges RN - [...]
--- OUTSIDE RECORDS SUMMARY | 2022-09-07 12:04 | XMS_ITS | Encounter Summary ---
:1995 Author Organization [place] Address [address] [facility] [place] [address] Care Team Providers Name Role Phone Unavailable Primary Care Provider Unavailable Reason for Referral [facility] COORDINATOR - Closed Specialty Diagnoses / Procedures Referred By Contact Refer red To Contact Diagnoses Twin gestation with unknown number of placentas and amniotic sacs, first trimester David Breen, OBSTETRICS & GYNECOLOGY SPEC [address] [facility] [address] [place] [address] [place] [phone] Fax: Referral ID Status Reason Start Date Expiration Date Visits Requ ested Visits Authorized [id number] Closed 08/24/2014 02/20/2015 1 1 E INFORMATICIST Reason for Visit Reason Comments Other Encounter Details Date Type Department Care Team Description 08/24/2014 Telephone [facility] David Breen MD [place] [address] [address] [place] [address] [address] [place] [address] [phone] Social History Tobacco Use Types Packs/Day Years [...] this encounter Miscellaneous Notes Telephone Encounter - David Breen MD - 08/24/2014 10:17 AM NURSE INFORMATICIST Reviewed US result showing twins. Referred to OB for obstetric cares. E INFORMATICIST Telephone Encounter - David Breen MD - 08/24/2014 9:50 AM NURSE INFORMATICIST LM for pt. Have schedule f/u appt soon. David Breen MD E INFORMATICIST documented in this encounter Plan of Treatment Scheduled Referrals Name Type Priority Associated Diagnoses Order S chedule COMM[facility]ITY CENTER COORDINATOR REFERRAL Referral Routine Twin gestation with unkno wn Ordered: 08/24/2014 number of placentas and amniotic sacs, first trimest er documented as of this encounter Visit Diagnoses Diagnosis Twin gestation with unknown number of pl acentas and amniotic sacs, first trimester - Primary documented in this encounter
--- OUTSIDE RECORDS SUMMARY | 2022-09-07 12:05 | XMS_ITS | Clinical Summary ---
:1995 Author Organization [facility] [employer] [facility] [employer] [employer] [place] [address] Care Team Providers Name Role Phone Clinic, [...] No / Unsu re 08/25/2022 4:13 PM DINING ROOM HOSTESS someone who was confirmed or suspected to have Coronavirus/COVID-19? Obstetrics History Para Term AB IAB SAB Ectopic Multiple Living Live Births 1 Date Outcome GA Total Labor/2nd/3rd Weight Sex Delivery Anes PTL Anamaria A 1 A5 Name Clin Labor Current Last Filed Vital Signs Vital Sign Reading Time Taken Comments Blood Pressure 107/68 08/25/2022 4:23 PM DINING ROOM HOSTESS Pulse 80 08/25/2022 4:23 PM DINING ROOM HOSTESS Temperature 36.6 ??C (97.8 ??F) 08/25/2022 4:23 PM DINING ROOM HOSTESS Respiratory Rate 22 04/12/2021 4:46 PM CDT Oxygen Saturation 98% 08/25/2022 4:23 PM DINING ROOM HOSTESS Inhaled Oxygen Concentration - - Weight 70.8 kg (156 lb) 08/25/2022 4:23 PM DINING ROOM HOSTESS Height 160 cm (5' 3) 08/25/2022 4:23 PM DINING ROOM HOSTESS Body Mass Index 27.63 08/25/2022 4:23 PM DINING ROOM HOSTESS Plan of Treatment Health Maintenance Due Date [...] PM Exposure to Resu lts for this DINING ROOM HOSTESS influenza procedure are in Influenza-like the results symptoms section. from Last 3 Months Results INFLUENZA A/B PCR (08/25/2022 4:45 PM DINING ROOM HOSTESS) Analysis Performed At Patho logist Time Signature INFLUENZA A Negative 08/27/2022 [facility] 11:30 AM DINING ROOM HOSTESS [facility] INFLUENZA B Negative 08/27/2022 [facility] 11:30 AM DINING ROOM HOSTESS [facility] Specimen Anatomical Location / Collection Method Collection Hernandez e Received Time (Source) Laterality / Volume Other NASOPHARYNGEAL SWAB / Non-Blood / 08/25/2022 4:45 4:54 Unknown Unknown PM DINING ROOM HOSTESS PM DINING ROOM HOSTESS Mary [facility] Performing Organization Address City/State/ZIP Code Phon e Number [employer] [address] [place] [address] LABORATORY-CENTR[facility] LABORATORY from Last 3 Months Insurance Payer Benefit Plan / Subscriber ID Effective Dates Phone Addre ss Type Group GO HUSSAIN JNSULEIMAN NIXON [id number] 2017-Present [address] [place] [address] [employer] HUSSAIN JNSULEIMAN NIXON [id number] 2021-Present [address] [place] [address] Joel Amos Personal/Famil Self 1995 [address] (Home) [place] [id number] Care Teams Music Cataloguer Relationship Specialty Start Date End Date Clinic, No Pcp Or PCP - General 05/07/17 .
[2022-09-08 11:58] LABS: Strep B DNA Probe POSITIVE (Negative)
[2022-09-09 18:02] LABS: Strep B Pen/Amox Allergy No
== END 2022-09-07 11:56 | disposition home or self-care (01) ==
LOC: NFLDREF 11:55
PROVIDERS: Visit Provider Advanced Practice Midwife
DX: Z34.83 Encounter for supervision of other normal pregnancy, third trimester (principal); Z3A.36 36 weeks gestation of pregnancy
CPT/HCPCS: 87081; 87653

== ENCOUNTER 2022-09-29 07:22 | Inpatient (IN) | payer MEDICAID, SELFPAY ==
[2022-09-29 05:30] VITALS: BP 132/75; PULSE 82; RESP 18; TEMP 36.6; O2SAT 97
[2022-09-29 05:48] VITALS: BMI 27.6
[2022-09-29] MEDS: LACTATED RINGERS 1000 ML 1,000 ML 125 ML IV (07:00)
[2022-09-29] MEDS: AMPICILLIN 2 GM in 0.9 % SODIUM CHLORIDE Mini-bag 100 ML IVPB (07:01)
--- NOTE | 2022-09-29 09:24 | W.PM.LDBA ---
Subjective History of Present Illness Narrative: Patient is being admitted to Labor and Delivery for prelabor rupture of membranes. She is a 27 year old at 39 1/7 weeks gestation. She reports that she woke up about 330 am this morning and her water broke about 350 am. She began noticing irregular contractions after her water broke. She feels they are still irregular but slowly getting more intense. Her full history and physical was dictated by PEPPER Richardson on 09/15/2022. Please see this for details. OB PROBLEM LIST Transfer at 32 weeks from [facility] for waterbirth H&P done by PEPPER Richardson 09/15/2022 1. H/o Pre-E 2. Depression/Anxiety, and undiagnosed PPD with last , seeing counselor, did not receive medication. BiPolar, PTSD, BPD diagnosis, sees counselor, no medication. Pt feels her mental health is better than ever right now and that previous diagnosis no longer fit. 3. H/o vaping, quit with confirmation 4. H/o childhood trauma, PTSD. Pt stated she does not think it impacts her , labor/ or exams, but understands to please let us know if she needs us to do anything differently, or stop an exam at any point. 5. Subchorionic Hemorrhage bleeding at 13 weeks, seen in ER. No further bleeding or problems. 6. Miscarriage 09/2021 @ 10w with D&C - this baby is due 09/2022, which brings up some tough emotions per pt. But she is very excited for her rainbow baby. 7. Delivered twins vaginally 03/2015. 8. GBS+ Ampicillin in labor 9. Covid postive 09/13/22, s/s-09/10, out of quarantine 09/20/22 Consider growth at 40 weeks 10. Hx of meth use, was in treatment; 2 years ago OB Transfer Labs:? ? Blood type: A+, antibody screen negative.? ? Hgb (03/10/22): 14.4 Platelets (03/10/22): 295? ? Rubella: NON-immune? ? RPR: non-reactive? ? HBsAg: negative? ? HIV: negative? ? GC/Chlamydia: negative/negative? Hep C(03/10/22): Negative? Pap (08/07/2020): NIL? ? Genetic screening: ? 1hr gtt: 82? ? OB - H&P: Exam Physical Exam: Vital signs: Temp Pulse Resp BP Pulse Ox 98 F 82 18 132/75 97 09/29/22 05:30 09/29/22 05:30 09/29/22 05:30 09/29/22 05:30 09/29/22 05:30 Narrative: Vitals Reviewed? Psychiatric:? Alert and oriented x3? HEENT:? Normocephalic, atraumatic? Neck:? Supple?? Lungs:? Clear to auscultation bilaterally? Heart:? Regular rate and rhythm, no murmur, rub or gallop? Abdomen:? Soft, nontender, and gravid. Vertex by Chad's, confirmed with cervical exam by RN.? Extremities:? No edema or erythema? Detailed Labor and Delivery Exam: Patient Gravid: yes Dilation (cm): 5 (Per RN exam) Contraction intensity: Moderate Comments: Initial FHR tracing in Triage was not reactive. Placed on monitors in Labor room and FHR was reactive. Fetus (Single): Amniotic Membrane Status: SROM (at 350 am) Amniotic Membrane Fluid Description: Clear Heart Rate Baseline: 135 Monitor Accelerations: Present Monitor Decelerations: None Tone Artist Apprentice Variability: Moderate (6-25) OB - Problem Based A/P Additional Plan (1) PROM (premature rupture of membranes): Status: Acute (2) Pain during labor: Status: Acute Plan ASSESSMENT:? 27 at 39 1/7 weeks gestation? complicated by:?H/o Pre-E, Depression/Anxiety, H/o vaping, H/o childhood trauma, PTSD, GBS+, Covid 09/13/22,Hx of meth use 2+ years ago Labor type: Spontaneous, Early labor? Category 1 FHR pattern.?? Labor complicated by: PROM and GBS+? GBS positive? ? PLAN:? 1. Routine intrapartum cares as ordered. Discussed options of management when SROM happens prior to labor starting including expectant management vs augmentation with IV pitocin. Plan expectant management at this time. If no labor in 12+ hours, recommend start of IV pitocin. 2. Monitoring per policy, intermittent? 3. Planning unmedicated . Desires water . Consent signed. Hep C negative. Candidate for analgesia of choice.?? 4. Patient encouraged to reposition and ambulate to promote physiologic labor and .? 5. GBS phrophylaxis initiated for GBS positive status. Will treat with antibiotics per protocol. 1st dose of antbiotics already started. 6. Anticipate ? Delivery/Labor/Induction Plan Plan: expectant management
[2022-09-29] MEDS: AMPICILLIN 1 GM in 0.9 % SODIUM CHLORIDE Mini-bag 100 ML IVPB (11:08)
[2022-09-29 11:38] LABS: Basophils Absolute Auto 0.03 K/uL (0.00-0.30); Basophils Percent Auto 0.3 % (0.0-3.0); Eosinophils Absolute Auto 0.19 K/uL (0.00-0.50); Eosinophils Percent Auto 1.9 % (0.0-7.0); Hemoglobin* 11.8 gm/dL (12.0-16.0); Immature Granulocytes Abs Auto 0.03 K/uL (0.00-0.30); Immature Granulocytes Pct Auto 0.3 %; Lymphocytes Percent Auto 19.6 % (20-44); Mean Corpuscular HGB Conc 34 gm/dL (32-36); Mean Corpuscular Hemoglobin 32 pg (26-34); Mean Corpuscular Volume 96 fL (80-100); Monocytes Percent Auto 8.4 % (0.0-11.0); Neutrophils Absolute Auto 7.05 K/uL (1.7-7.0); Neutrophils Percent Auto 69.5 % (42.0-72.0); Platelet Count* 267 K/uL (140-440); RDW Coefficient of Variation % 12.9 % (11.5-15.5); Red Blood Count 3.65 m/uL (4.00-5.20); White Blood Count* 10.14 K/uL (4.50-11.00)
[2022-09-29 11:41] LABS: Slide Review Reflex No
--- NOTE | 2022-09-29 13:59 | P.OBPRC_ITS ---
Procedure Procedure Done: Global Events: Other (COVID, Marginal cord insertion (thought to be resolved)) Intrapartal Events: None Delivery monitor: external FHT and external uterine Route of delivery: Laceration description: None Estimated blood loss (mL): 400 Anesthesia type: None Disposition: floor Narrative: The patient is a 27 year-old G3 now P2013 admitted on 09/29/2022 at 39 Weeks, 1 Days gestation for PROM with spontaneous labor.? Cervical exam on admission was 5 cm with membranes ruptured in vertex presentation.? Contractions were irregular per patient and mild.? heart rate demonstrated baseline 135 bpm with moderate variability, + accelerations, - decelerations; a category 1 sarah ng.? PROM occurred at 0350 with clear fluid. ? Labor Analgesia:? none Waterbirth: yes ? Pitocin:? No ? Labor onset:? 09/29/2022 at 1100 ? Complete:? 1328 assumed with start of pushing ? Pushing:? 1328 ? heart tones during active labor were reassuring with intermittent auscultation. ? Patient was admitted for PROM at 0350 with clear fluid. Patient labored in the tub and progressed normally with verbal support and coaching to complete and pushing at 1328. Second stage progressed quickly. of a viable female at 1336 in semi-reclined position in the tub. Vertex delivered OA. No nuchal cord. Initially, delivery of body was difficult by maternal position and lack of pushing. Time of delivery of head to body was about 40 seconds. No shoulder dystocia noted. With repositioning, more reclined, and maternal effort body delivered easily and without incident. Infant lift out of water and passed to mothers abdomen with a vigorous cry. Cord was clamped and cut at > 5 minutes. APGARS were 8 at one minute and 8 at five minutes respectively. Mouth was bulb suctioned. Patient transferred from tub to bed with assistance. Large clot dropped into tub as she exited and a 2nd large clot delivered as she sat on the bed. The placenta then quickly delivered and bleeding was very minimal. Intact placenta with a 3 vessel marginal cord delivered spontaneously at 1345. Fundus firm. Intact perineum. EBL 400 cc. Mother and baby stable; mother plans to breastfeed. weight 3500g. ? Placenta delivered spontaneously and complete at 1345 with a 3 vessel cord. Marginal cord insertion noted. ? Mother and were stable after delivery. ? Lacerations:? Intact ? Blood loss: 200 mL. Blood loss measurement type: EBL ? Sponge and needles counts are correct. Pierz Infant Infant Gender: Female presentation: vertex Placental Delivery Description: Spontaneous Cord Description: 3 Vessels OB Vag Delivery Procedures Additional Procedures ECV: No Cook Catheter Insertion: No NST: No D&C: No Laceration Repair: No Tubal Ligation : No Other: No
[2022-09-29 14:04] VITALS: RESP 16; TEMP 36.6
[2022-09-29] MEDS: ACETAMINOPHEN 500 MG TABLET 1000 MG PO (14:38)
[2022-09-29] MEDS: IBUPROFEN 600 MG TABLET PO (16:29)
[2022-09-29 21:30] VITALS: BP 121/80; PULSE 81; RESP 16; TEMP 36.8; O2SAT 95
[2022-09-30] VITALS: BP 118/79; PULSE 79; RESP 16; TEMP 36.7; O2SAT 97
[2022-09-30 03:50] VITALS: BP 116/76; PULSE 71; RESP 16; TEMP 36.8; O2SAT 97
--- NOTE | 2022-09-30 07:29 | PM.OBDSVD1 ---
DS: Providers Provider Time Seen by Provider: 07:29 Date Seen: 09/30/22 Date of admission: 09/29/22 07:22 Primary care physician: Not a Local Provider Admitting Clinician: Oneyda Levy MD Attending Physician on discharge: Carol Chapin CNM Date of Discharge: 09/30/22 DS: Diagnosis Discharge Diagnosis (1) state: Status: Acute (2) Lactating mother: Status: Acute Exam Narrative: Exam Narrative: Objective: VSS, afebrile GENERAL APPEARANCE: ?normal affect, alert, no distress MOOD: ?appropriate HEENT: normocephalic, neck supple, full ROM CHEST: ?Symmetrical chest wall movement. ?Normal respiratory effort. ?Clear to auscultation HEART: ?regular rate and rhythm ABDOMEN: ?soft, non-tender. Uterine fundus is firm, at Umbilicus, Midline and is appropriate for the stage of recovery. ?Bowel sounds present. PERINEUM: ?mild edema of the perineum, there is no laceration. EXTREMITIES: ?normal and no edema Const: Vital Signs, click to edit/add: Vital Signs - 24 hr 09/29/22 14:04 09/29/22 21:30 09/30/22 00:00 Temperature 97.9 F 98.2 F 98.1 F Pulse Rate [Pulse Oximeter] 81 79 Respiratory Rate 16 16 16 Blood Pressure [Le ft Arm] 121/80 118/79 Pulse Oximetry 95 97 Oxygen Delivery Me thod Room Air Room Air 09/30/22 03:50 Temperature 98.2 F Pulse Rate [Pulse Oximeter] 71 Respiratory Rate 16 Blood Pressure [Le ft Arm] 116/76 Pulse Oximetry 97 Oxygen Delivery Me thod Room Air Documenting provider has reviewed patient's vital signs: yes OB - DS: Summary Hospital Course Hospital Course: Subjective: Joel is a 27 y.o. who was admitted to [facility] for active labor . ?She had an uncomplicated NVD waterbirth The patient feels well. ?The pain is well controlled with current medications. ?She has no new complaints. ?She is breast feeding and reports things are going well.? the patient has done well.? Vitals have been stable.? She has remained afebrile.? Has a good appetite, is tolerating a general diet. ?She is voiding without difficulty.? She is passing gas and has had a bowel movement with no concerns.? She is ambulating and denies any dizziness.? Has Small amount of rubra lochia. ?She is planning Mirena IUD for prevention. Assessment: Lactating Mother plan: Discharge home with baby. Follow up in 2 weeks and 6 weeks. , may follow up with if needed Peripartum Data Infant delivery method: Vaginal Laceration description: None complications: none Gender: Female Infant Discharge Plan: Home Status at Discharge Functional status at discharge: independent ambulation Overall status at discharge: patient is progressing back to baseline Time Spent with Patient Time attestation: Total time spent providing and/or coordinating discharge services: Time spent: Less than 30 minutes Discharge Plan Discharge Disposition: Home, Self-Care Date of Admission: 09/29/22 07:22 Attending Provider on Discharge: Carol Chapin Primary Care Provider: Provider,Not a Local Condition: Stable Anticipated Discharge Date/Time: 09/30/22 14:00 Discharge Medications: New docusate sodium 100 mg Capsule 100 mg PO DAILY Qty: 60 1RF ibuprofen 600 mg Tablet 600 mg PO Q6H PRNQty: 60 0RF acetaminophen 500 mg Tablet 1,000 mg PO Q6H PRNQty: 0 0RF Continued prenat.vits,ashley,[id number] Tablet 1 tab PO QDAY Discharge Orders: Discharge Order (Routine); Ordered 09/30/22 Ordered By: Carol Chapin Patient Education: OB Over the Counter Medication Information, OB Vaginal/Breast Feeding Additional Instructions: 2 week and 6 week visits Activity Level: Activity as Tolerated Discharge Diet: Regular Follow Up Appointments: Provider,Not a Local [Primary Care Provider] - Forms: [email or web address] Info Instructions
[2022-09-30 08:02] LABS: Hemoglobin* 10.4 gm/dL (12.0-16.0)
[2022-09-30 08:57] VITALS: BP 137/86; PULSE 86; RESP 16; TEMP 36.9; O2SAT 95
[2022-09-30] MEDS: DOCUSATE SODIUM 100 MG CAPSULE PO (09:07)
[2022-09-30] MEDS: IBUPROFEN 600 MG TABLET PO (10:06)
[2022-09-30 13:07] VITALS: BP 117/74; PULSE 76; RESP 16; TEMP 36.8; O2SAT 96
[2022-09-30] MEDS: ACETAMINOPHEN 500 MG TABLET 1000 MG PO (13:11)
== END 2022-09-30 17:00 | disposition home or self-care (01) | DRG 807 ==
LOC: OB OUT 10-07 06:40
PROVIDERS: Advanced Practice Midwife; Admitting Provider Obstetrics & Gynecology; Visit Provider Obstetrics & Gynecology
DX: O42.02 Full-term premature rupture of membranes, onset of labor within 24 hours of rupture (principal); Z37.0 Single live birth; O69.89X0 Labor and delivery complicated by other cord complications, not applicable or unspecified; O99.824 Streptococcus B carrier state complicating childbirth; O99.344 Other mental disorders complicating childbirth; F41.8 Other specified anxiety disorders; F43.10 Post-traumatic stress disorder, unspecified; F31.9 Bipolar disorder, unspecified; F60.3 Borderline personality disorder; Z86.16 Personal history of COVID-19; Z62.819 Personal history of unspecified abuse in childhood; Z3A.39 39 weeks gestation of pregnancy
CPT/HCPCS: 36415; 85018; 85025; 86850; 86900; 86901; 87635; 99213; A9270; J0290; J7120

== ENCOUNTER 2022-12-15 15:57 | Outpatient (CLI) | payer MEDICAID, SELFPAY | END 2022-12-15 15:58 | disposition home or self-care (01) | LOC: NFLDREF 12-18 10:58 | PROVIDERS: Visit Provider Registered Nurse | DX: L29.2 Pruritus vulvae (principal); Z30.431 Encounter for routine checking of intrauterine contraceptive device | CPT/HCPCS: 87210 ==